=== PATIENT | male | born 1945 | race Caucasian/White ===

== ENCOUNTER 2016-10-10 13:05 | Emergency (ER) | payer OTHER ==
[~2016-10-10] VITALS: Ht 170.2 cm; Wt 81.1 kg
[~2016-10-10 13:05] MED LIST: LISI5TAB3 PO; MAGN400T5 PO; MECL1TAB42 PO; METO50TA16 PO; NRV5 PO; WARF5TAB90 PO
[2016-10-10 13:16] VITALS: TEMP 36.5; Ht 170.2 cm; Wt 81.1 kg
--- NOTE | 2016-10-10 14:04 | EMERGENCY ROOM VISIT NOTE ---
History First contact with patient: 13:19 Chief Complaint: NASAL PAIN/INJURY Stated Complaint: NOSE BLEED, BLOOD BLISTER IN MOUTH History of Present Illness The patient is a 71 year old male who presents to the Emergency Room via private vehicle with complaints of "nose bleed, blood blister in mouth". The patient states that around 2 weeks ago he began with a nosebleed out of his right nostril after bending over. He states then this past Saturday the bleeding started again from both nostrils. He states that the bleeding would do down the back of his throat. On October 07 he developed little black sores on the inside of his mouth. He states these cleared up for a brief period of time and that was scraped off similar to a scab but then developed another throughout the night. He states that there is blood oozing from these regions when he scrapes them. He states that now he has a "bunch" of them, and one developed today. He states it feels like little popcorn kernels are stuck on his skin. He is currently on Coumadin, with his last INR being 2.3 one week ago. He is on a 5 mg regimen daily except for of which he takes 7.5 mg. He is on Coumadin for atrial fibrillation and a cardiac stent placement in December 2014. He denies any recent change in this medication. He attempted to get an appointment with his family doctor today at 2 PM, Dr. King, however he was encouraged to come to the emergency department. 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 He also has a history of non-Hodgkin's lymphoma. He has had associated bleeding of the gums. He denies any hematochezia, bleeding from ear canals, fevers, chills, chest pain, shortness of breath, abdominal pain, neck pain. Review of Systems A complete 6-point Review of Systems was discussed with the patient, with pertinent positives and negatives listed in the History of Present Illness. All remaining Review of Systems questions can be considered negative unless otherwise specified. Past Medical/Surgical History Medical Problems: (1) Clostridium difficile colitis (2) Diabetes mellitus type 2 (3) Diverticular disease of colon (4) Diverticulitis (5) Dyslipidemia (6) Essential hypertension (7) History of adenomatous polyp of colon (8) History of non-Hodgkin's lymphoma (9) Paroxysmal atrial fibrillation Surgical Problems: (1) Status post cholecystectomy (2) Status post vasectomy 1992, autoimmune hemolytic anemia Family History Breast cancer SISTER Diabetes mellitus BROTHER SISTER FH: NM (myocardial infarction) FATHER BROTHER FH: heart disease FATHER BROTHER Ovarian cancer SISTER Stroke MOTHER Social History Smoking Status: Former Smoker Alcohol Use: none Marital Status: Housing Status: lives with family Occupation Status: other Current/Historical Medications Scheduled Artificial Tear Solution (Just Tears Eye Drops), 1 DROP OPB BID Aspirin (Aspirin Ec), 81 MG PO QPM Atorvastatin (Lipitor), 10 MG PO HS Glipizide (Glucotrol), 10 MG PO BID Lisinopril (Zestril), 2.5 MG PO DAILY Magnesium Oxide (Mag-Ox), 400 MG PO BID Metformin Hcl (Glucophage), 1,000 MG PO BID Metoprolol Tartrate (Lopressor) (Lopressor), 25 MG PO BID Multivitamins/Minerals (Mvi With Minerals), 1 TAB PO DAILY Omeprazole (Prilosec), 20 MG PO DAILY Warfarin Sodium (Coumadin), 5 MG PO [id number] Allergies Coded Allergies: Penicillins (Verified Allergy, Unknown, RASH, 10/10/16) Physical Exam Vital Signs Date Time Temp Pulse Resp B/P Pulse Ox O2 Delivery O2 Flow Rate FiO2 10/10/16 23:00 71 18 173/89 94 10/10/16 20:14 60 18 179/89 96 Room Air 10/10/16 17:00 63 18 196/92 95 Room Air 10/10/16 15:01 63 18 202/96 96 Room Air 10/10/16 13:16 36.5 58 18 197/90 95 Room Air Physical Exam VITAL SIGNS - Vital signs and nursing notes were reviewed. The patient is afebrile. He is hypertensive at 197/90. He is not tachycardic. He is saturating well on room air 95%. GENERAL -71-year-old male appearing his stated age who is in no acute distress. Communicates well with provider and answers questions appropriately. SKIN - there is evidence of purpura and petechiae on the skin as well as the bilateral lower extremities. There is evidence of bruising on the extremities. There is no active bleeding at this time noted. HEAD - NC/AT. EYES - PERRL with EOMI bilaterally. Sclera anicteric. Palpebral conjunctiva pink and moist with no injection noted. No hyphema. EARS - No deformities of external structures noted on gross examination bilaterally. No hemotympanum. No bleeding from the ear canals. NOSE - Midline and without cyanosis. There is evidence of dry blood in the right and left nostril. No evidence of current epistaxis at this time. MOUTH/OROPHARYNX - Without perioral cyanosis. Buccal mucosa pink and moist and without leukoplakia. Tongue midline with equal elevation of palate bilaterally. No tonsillar hypertrophy, erythema, or exudates noted. There are small black bullae on the vehicle mucosa. This is consistent with a hemorrhagic bulla. NECK - Neck with FROM. Supple to palpation. No lymphadenopathy noted. No nuchal rigidity. LUNGS - Chest wall symmetric without accessory muscle use, intercostals retractions, or central cyanosis. Normal vesicular breath sounds CTA B/L. No wheezes, rales, or rhonchi appreciated. CARDIAC - RRR with S1/S2. No murmur, rubs, or gallops appreciated. EXTREMITIES - No clubbing or peripheral cyanosis. No pretibial edema present. There are few petechiae on the bilateral upper extremities. There is diffuse petechiae noted to the lower extremities. The skin is intact. NEUROLOGIC - Cranial nerves II through XII grossly intact. Sensory intact to light touch throughout. PSYCH - A&Ox3 and cooperates fully with examiner. Pt is very pleasant and interacts well with examiner. Medical Decision & Procedures Laboratory Results 10/10/16 14:10 Red Blood Count 5.29, Mean Corpuscular Volume 86.0, Mean Corpuscular Hemoglobin 31.0, Mean Corpuscular Hemoglobin Concent 36.0, Neutrophils (%) (Auto) 65.8, Lymphocytes (%) (Auto) 18.7, Monocytes (%) (Auto) 12.3, Eosinophils (%) (Auto) 2.7, Basophils (%) (Auto) 0.4, Neutrophils # (Auto) 4.67, Lymphocytes # (Auto) 1.33, Monocytes # (Auto) 0.87, Eosinophils # (Auto) 0.19, Basophils # (Auto) 0.03 10/10/16 14:10 Test 10/10/16 14:10 White Blood Count 7.10 K/uL (4.8-10.8) Red Blood Count 5.29 M/uL (4.7-6.1) Hemoglobin 16.4 g/dL (14.0-18.0) Hematocrit 45.5 % (42-52) Mean Corpuscular Volume 86.0 fL (80-100) Mean Corpuscular Hemoglobin 31.0 pg (25-34) Mean Corpuscular Hemoglobin Concent 36.0 g/dl (32-36) Platelet Count 1 K/uL (130-400) Neutrophils (%) (Auto) 65.8 % Lymphocytes (%) (Auto) 18.7 % Monocytes (%) (Auto) 12.3 % Eosinophils (%) (Auto) 2.7 % Basophils (%) (Auto) 0.4 % Neutrophils # (Auto) 4.67 K/uL (1.4-6.5) Lymphocytes # (Auto) 1.33 K/uL (1.2-3.4) Monocytes # (Auto) 0.87 K/uL (0.11-0.59) Eosinophils # (Auto) 0.19 K/uL (0-0.5) Basophils # (Auto) 0.03 K/uL (0-0.2) RDW Standard Deviation 40.9 fL (36.4-46.3) RDW Coefficient of Variation 13.0 % (11.5-14.5) Immature Granulocyte % (Auto) 0.1 % Immature Granulocyte # (Auto) 0.01 K/uL (0.00-0.02) Platelet Estimate SIGNIFIC DECREASED Prothrombin Time 20.1 SECONDS (9.0-12.0) Prothromb Time International Ratio 1.8 (0.9-1.1) Activated Partial Thromboplast Time 32.7 SECONDS (21.0-31.0) Partial Thromboplastin Ratio 1.3 Anion Gap 8.0 mmol/L (3-11) Est Creatinine Clear Calc Drug Dose 61.0 ml/min Estimated GFR () 76.8 Estimated GFR (Non- 66.2 BUN/Creatinine Ratio 10.9 (10-20) Calcium Level 9.2 mg/dl (8.5-10.1) Total Bilirubin 1.1 mg/dl (0.2-1) Aspartate Amino Transf (AST/SGOT) 24 U/L (15-37) Alanine Aminotransferase (ALT/SGPT) 39 U/L (12-78) Alkaline Phosphatase 86 U/L (45-117) Total Protein 7.7 gm/dl (6.4-8.2) Albumin 4.2 gm/dl (3.4-5.0) Globulin 3.5 gm/dl (2.5-4.0) Albumin/Globulin Ratio 1.2 (0.9-2) Rapid Plasma Reagin NONREACTIVE (NONREACT) Medications Administered Medications (Trade) Dose Ordered Sig/Pollo Route Start Time Stop Time Status Last Admin Dose Admin Phytonadione (Mephyton Tab) 5 mg NOW STAT PO 10/10/16 18:54 10/10/16 18:57 DC 10/10/16 19:27 5 MG Prednisone (PredniSONE TAB) 80 mg STK-MED ONCE .ROUTE 10/10/16 19:24 10/10/16 19:26 DC 10/10/16 19:27 80 MG Ondansetron HCl (Zofran Inj) 4 mg NOW STAT IV 10/10/16 21:00 10/10/16 21:01 DC 10/10/16 21:09 4 MG Ondansetron HCl 4 mg 4 mg NOW STAT IV 10/10/16 21:37 10/10/16 21:38 DC 10/10/16 21:37 4 MG Sodium Chloride 1,000 ml @ 999 mls/hr Q1H1M STAT IV 10/10/16 21:37 10/10/16 22:37 DC 10/10/16 21:37 999 MLS/HR Promethazine HCl/ Sodium Chloride (Phenergan Inj/ Nss 50ml) 50.5 ml @ 204 mls/hr NOW STAT IV 10/10/16 22:06 10/10/16 22:20 DC 10/10/16 22:20 204 MLS/HR Medical Decision Patient was seen and evaluated as above. After obtaining a thorough history and physical examination IV access was obtained and a CBC, CMP, coagulation studies as well as an RPR were obtained secondary to subjective and objective examination findings. CBC revealed no leukocytosis, however the platelet count was noted to be 1. His Red blood cell count, hemoglobin and hematocrit are all stable. Patient's INR is 1.8, and the CMP did not reveal any evidence of kidney or liver failure. RPR nonreactive. 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 I spoke with our hospitalist regarding this at 3:20 PM on 10/10/2016 and it was identified that this is a patient that would benefit from transfer to a facility that may be able to better manage his platelet count. At 3:37 PM a phone call was placed to the [facility] in [place] where there was a code red. Because of this I spoke with Dr. Espinal, the hospitalist at [facility] who agreed to take the patient to the medical surgical floor. At 3:43 PM the decision was made to send the patient via ALS ground so he may seek management and treatment at [facility]. Patient was in agreement with this. The case was discussed thoroughly with my attending. The patient at this time appears nontoxic and is stable. I then was called by [facility] and notified that it may be 24 hours until the patient can be taken to a room. I was then called back and notified that it could be greater than this time therefore I discussed alternative options. I spoke with [facility] regarding the patient's care and at 6:[address] Grant of the [facility] who would be the accepting physician. He indicated that it may be a few hours until a room is available after a patient is discharged. He indicated that depending upon the amount of wait time I should start steroids, specifically prednisone 1 mg/kg as well as consider reversing the patient's Coumadin as the risk of the patient bleeding outweighs the benefit of anticoagulation. I discussed this with my attending, and because the first attending left after the end of his shift and a new one began I then acquired a new attending. I discussed the case thoroughly with him. He also personally evaluated the patient. The patient was given 80 mg by mouth of prednisone as well as 5 mg of vitamin K. The patient was reassessed multiple times throughout his stay and the patient at this time is pending transfer to [facility]. I believe that although there are risks associated with transfer, that the benefit of the patient receiving treatment from that facility outweighs the risk. Prior to the patient reporting the facility at 9 PM, the patient developed emesis that was bile like in nature but not gross blood. Patient was given Zofran 4 mg IV, and then another 4 mg IV without cessation of his emesis. He was then given 12.5 mg of Phenergan with good relief. He was then stable, and was transported to [facility]. The patient was reevaluated multiple times throughout his stay and noted to be feeling well, he did ask for solid food however I indicated that due to the hemorrhagic bullae near the soft palate and pharynx that at this time liquids would be best. He is a diabetic therefore care was taken to ensure that sugar was maintained via his liquid intake but at this time I do not feel a solid foods would be beneficial. In the evaluation and treatment of this patient following differential diagnoses were entertained: ITP, TTP, acute hemorrhage, shingles, among others. Impression Primary Impression: Thrombocytopenia Departure Information Dispostion Transfer Acute Care Facility Condition FAIR Referrals Noble King D.O. (PCP) Patient Instructions A Signature Page, My [facility]
--- NOTE | 2016-10-10 14:30 | EMERGENCY ROOM VISIT NOTE ---
ED Visit Note First contact with patient: 13:19 This Patient was discussed with the physician elementary assistant teacher, Pipo Barron PA-C. The pertinent historical and physical exam findings were confirmed. I agree with the studies ordered and with the interpretations of these studies. I agree with the disposition and care plan.
[2016-10-10 14:35] LABS: INR 1.8 (0.9-1.1); PARTIAL THROMBOPLASTIN RATIO 1.3; PROTHROMBIN TIME (PATIENT) 20.1 SECONDS (9.0-12.0)
[2016-10-10 14:36] LABS: HEMATOCRIT 45.5 % (42-52); RED BLOOD COUNT 5.29 M/uL (4.7-6.1)
[2016-10-10 14:44] LABS: BUN/CREATININE RATIO 10.9 (10-20); CALCIUM 9.2 mg/dl (8.5-10.1); CREATININE 1.1 mg/dl (0.60-1.40)
[2016-10-10 14:46] LABS: ALB/GLOB RATIO 1.2 (0.9-2)
[2016-10-10 14:49] LABS: BASO % 0.4 %; BASO ABS # 0.03 K/uL (0-0.2); COMPLETE YES; EOS % 2.7 %; IG% 0.1 %; LYMPH % 18.7 %; LYMPH ABS # 1.33 K/uL (1.2-3.4); MONO % 12.3 %; NEUT % 65.8 %; PLATELET COUNT 1 K/uL (130-400); PLT ESTIMATE SIGNIFIC DECREASED
[2016-10-10] MEDS ORDERED: PHYTONADIONE 5 MG TAB PO STA (18:54)
[2016-10-10] MEDS ORDERED: ONDANSETRON INJ 2 MG/ML 2 ML VIAL IV STA ×2 (21:00→21:37)
[2016-10-10] MEDS ORDERED: SODIUM CHLORIDE 0.9% 1000ML 1,000 ML IV STA (21:37)
[2016-10-10] MEDS ORDERED: PROMETHAZINE HCL INJ 12.5 MG in SODIUM CHLORIDE 0.9% 50ML 50 ML IV STA (22:06)
[2016-10-10 23:00] VITALS: BP 173/89; PULSE 71; O2SAT 94
--- NOTE | 2016-10-11 00:59 | EMERGENCY ROOM VISIT NOTE ---
ED Visit Note This patient was seen by Pipo Barron and Dr. Perez. The plan had been to transfer the patient to [facility]. Pipo came and got me and further discussed the case as [facility] could not accept the patient because they had no beds and are not accepting patients. We then chose to transfer the patient to [facility]. Our hospitalist was not comfortable keeping the patient. I went and examined the patient. He seems comfortable. He does have some hemorrhagic bulla in his mouth without active bleeding. He is in no respiratory distress. He has no significant headache or neurologic symptoms. He has no airway compromise. We did talk to the electric blasting cap assembler at [facility] and have given the patient prednisone 1 mg/kg by mouth. Also given the fact that he is on Coumadin we have given vitamin K 5 mg by mouth. He is on this primarily for A. fib and does not have an artificial heart valve. His INR was not significantly elevated and was in the mid 1 range. He's had no significant bleeding while he was here. [facility] has accepted the patient and he did have some nausea was given Zofran IV twice as well as IV fluids. He was sent by ALS ambulance to [facility] for further treatment and evaluation.
[2017-01-18] MEDS ORDERED: LISI-789 PO (14:55)
[2017-01-18] MEDS ORDERED: AMIO200T4 PO (14:56)
[2017-01-28] MEDS ORDERED: PRED1SUS3 OPL (07:30)
[2017-07-04] MEDS ORDERED: GLIP10TA9 PO (11:32)
[2017-07-04] MEDS ORDERED: MULT-513 PO (11:46)
[2017-07-04] MEDS ORDERED: OMEP20CA9 PO (11:46)
[2017-07-04] MEDS ORDERED: ASPI81TA28 PO (11:46)
[2017-07-04] MEDS ORDERED: ARTISOL OPB (11:46)
[2017-07-04] MEDS ORDERED: METF-384 PO (11:46)
[2017-07-04] MEDS ORDERED: ATOR10TA82 PO (13:13)
[2017-07-04] MEDS ORDERED: WARF5TAB90 PO (14:55)
[2017-07-24] MEDS ORDERED: FOLI1TAB8 PO (10:16)
[2017-07-29] MEDS ORDERED: LPR25 PO (12:41)
[2017-07-29] MEDS ORDERED: DIPH2CRE16 EXT (12:41)
[2017-09-25] MEDS ORDERED: NRV5 PO (12:59)
[2017-09-25] MEDS ORDERED: PLV75 PO (12:59)
== END 2016-10-10 23:02 | disposition short-term general hospital (02) ==
LOC: C.EDB 13:07
DX: D69.6 Thrombocytopenia, unspecified (principal); R11.2 Nausea with vomiting, unspecified; R23.8 Other skin changes; I48.0 Paroxysmal atrial fibrillation; E11.9 Type 2 diabetes mellitus without complications; I10 Essential (primary) hypertension; E78.5 Hyperlipidemia, unspecified; Z85.72 Personal history of non-Hodgkin lymphomas; Z79.01 Long term (current) use of anticoagulants; Z79.899 Other long term (current) drug therapy; Z79.4 Long term (current) use of insulin; Z79.82 Long term (current) use of aspirin; Z87.891 Personal history of nicotine dependence; Z83.3 Family history of diabetes mellitus; Z82.49 Family history of ischemic heart disease and other diseases of the circulatory system; Z80.3 Family history of malignant neoplasm of breast; Z80.41 Family history of malignant neoplasm of ovary

== ENCOUNTER → 2017-01-25 | Outpatient (CLI) | payer OTHER ==
[~2017-01-25] MED LIST changes: +ALBUAER INH; +AMIO200T4 PO; +ARTISOL OPB; +ASPI81TA28 PO; +ASTN; +ATOR10TA82 PO; +AUG0.05O4 TOP; +CYAN10005 PO; +DIPH2CRE16 EXT; +DOCU100C31 PO; +FLNIN/ NAE; +FOLI1TAB7 PO; +GADAVIST IV PRN; +GLIP10TA9 PO; +HYDR25CA PO; +HYDR50CA2 PO; +LISI-789 PO; -LISI5TAB3 PO; +LPR25 PO; +LPT/40 PO; -MECL1TAB42 PO; +METF-384 PO; +MULT-513 PO; +NRV/5 PO; -NRV5 PO; +OMEP20CA9 PO; +PRED1SUS3 OPL; +PRED20TA PO; +TACR0.1O6 TOP
--- NOTE | 2017-01-25 08:38 | DIAGNOSTIC IMAGING REPORT ---
MRI OF THE BRAIN WITHOUT AND WITH IV CONTRAST CLINICAL HISTORY: BALANCE PROBLEM,GAIT DISTURBANCE,DIZZINESS FOLLICULAR LYMPHOMA COMPARISON STUDY: No previous studies for comparison. TECHNIQUE: MRI of the brain was performed from the vertex to the skull base utilizing various T1 and T2 weighted sequences. Following the IV administration of 7.5 mL of Gadavist contrast, additional enhanced images were obtained. FINDINGS: Sagittal T1, axial diffusion, proton density and T2 weighted axial, coronal FLAIR, and pre and post axial T1-weighted images were acquired. These were supplemented with post gadolinium coronal T1 weighted images. No intra or extra-axial mass lesions are visualized. Axial diffusion-weighted images reveal no evidence of acute or subacute infarction. There is no evidence of ventricular dilatation. Proton density T2-weighted and FLAIR images reveal scattered foci of increased T2 signal within the white matter, likely on a small vessel basis. There are no abnormal flow voids. There is no evidence of pathologic enhancement. There are minor inflammatory changes within the paranasal sinuses. IMPRESSION: 1. No acute intracranial findings 2. No evidence of intracranial mass 3. No evidence of acute or subacute infarction 4. Foci of increased T2 signal within the white matter likely on a small vessel basis Electronically signed by: Blair Vanessa M.D. 01/25/2017 8:35 AM Dictated Date/Time: 01/25/2017 8:32 AM
== END | disposition home or self-care (01) ==
LOC: C.MRI 07:41
PROVIDERS: ATTEND Nurse Practitioner
DX: R26.89 Other abnormalities of gait and mobility (principal); R26.9 Unspecified abnormalities of gait and mobility; R42 Dizziness and giddiness

== ENCOUNTER → 2017-01-28 | Day surgery (SDC) | payer OTHER ==
[2017-01-18 14:57] VITALS: Ht 171.5 cm; Wt 77.3 kg
[~2017-01-28] VITALS: Ht 171.5 cm; Wt 77.3 kg
[~2017-01-28] MED LIST changes: +500ML BSS 0.3ML EPI 1:1000PF IRRIG ONE; +ACETAMINOPHEN 325 MG TAB PO PRN; +AMVISC PLUS 0.8ML SYRINGE INT OCU ONE; +ATROPINE SULFATE 0.1 MG/ML 5ML SYR IV PRN; +BRIMONIDINE TART 0.2% OP SOLN PER DROP CHARGE ONE; +BSS FLUSH ONE; +ENDOCOAT 0.85ML SYRINGE INT OCU ONE; +EpHEDrine SULFATE INJ 50 MG/ML AMP IV PRN; +EpINEphrine INJ 1MG/ML AMP 1 MG/ML AMP ONE; +FENTANYL CITRATE INJ 50 MCG/1 ML 2 ML VIAL IV PRN; -GADAVIST IV PRN; +LACTATED RINGER'S 1000ML 500 ML IV SCH; +LIDOCAINE 4% OP SOLN DROP CHARGE ONE; +LIDOCAINE 4% OP SOLN DROP CHARGE OPL SCH; +LIDOCAINE HCL 1% MPF 2 ML VIAL ONE; +MIDAZOLAM HCL 1 MG/ML 2ML VIAL ONE; +MOXIFLOXACIN OPH SOLN PER DROP CHARGE ONE; +ONDANSETRON INJ 2 MG/ML 2 ML VIAL IV PRN; +POVIDONE-IODINE OP SOLN 30 ML BTL ONE; +PROPARACAINE 0.5% OP SOLN PER DROP CHARGE OPL SCH; +TOBRAMYCIN/DEXAMETHASONE OPH OINT PER APPLN CHARGE ONE
[2017-01-28] MEDS: PHENYLEPHRINE HCL 2.5% OP SOLN PER DROP CHARGE OPL SCH ×2 (07:23→07:28)
[2017-01-28] MEDS: TROPICAMIDE 1% OP SOLN PER DROP CHARGE OPL SCH ×2 (07:24→07:29)
[2017-01-28] MEDS: CYCLOPENTOLATE HCL 1% OP SOLN PER DROP CHARGE OPL SCH ×2 (07:25→07:30)
[2017-01-28] MEDS: KETOROLAC 0.5% OP SOLN PER DROP CHARGE OPL SCH ×2 (07:26→07:31)
[2017-01-28] MEDS: MOXIFLOXACIN OPH SOLN PER DROP CHARGE OPL SCH ×2 (07:27→07:37)
--- NOTE | 2017-01-28 07:29 | History & Physical Bridge - SC ---
H&P Re-Evaluation Bridge Note: I have examined the patient, reviewed the History & Physical and in the interval since the performance of the History & Physical I have noted the following changes of clinical significance: No changes noted
--- NOTE | 2017-01-28 08:27 | [facility] Post Operative Brief Note ---
Immediate Operative Summary Operative Date Jan 28, 2017. Pre-Operative Diagnosis Cataract Left Eye Post-Operative Diagnosis Same Procedure(s) Performed Left Cataract Phacoemulsification With Intraocular Lens Implant Surgeon Dr. Partida Home Therapy Teacher Surgeon(s) None Estimated Blood Loss 0 Findings cataract left eye Specimens None Complication(s) None Disposition Recovery Room / PACU
--- NOTE | 2017-01-28 08:27 | Discharge Instructions-SurgCtr ---
Discharge Instructions Date of Service Jan 28, 2017. Visit Reason for Visit: Left Cataract Discharge Discharge Diagnosis / Problem: cataract left eye Discharge Goals Goal(s): Improve function Medications Stopped Medications Name(s): metformin, last dose 01/24/17 Activity Recommendations Activity Limitations: per Instructions/Follow-up section Lifting Limitations: no more than 5 pounds Anesthesia . Post Anesthesia Instructions: If you have had General Anesthesia or IV Sedation: * Do not drive today. * Resume driving when surgeon permits. * Do not make important decisions or sign legal documents today. * Call surgeon for: 1. Temperature elevations greater than 101 degrees F. 2. Uncontrollable pain. 3. Excessive bleeding. 4. Persistent nausea and vomiting. 5. Medication intolerance (nausea, vomiting or rash). * For nausea and vomiting use only clear liquids such as: tea, soda, bouillon until nausea subsides, then gradually increase diet as tolerated. * If you have any concerns or questions, call your surgeon's office. If physician is unavailable and it is an emergency, call 911 or go to the nearest emergency room. . Instructions / Follow-Up Instructions / Follow-Up ACTIVITY RECOMMENDATIONS: * Light activities * You may walk outside, read, watch television. * Mild irritation and blurred vision are common for the first few days, redness around the white part of the eye is common. MEDICATIONS: Resume previous medications unless instructed otherwise by your surgeon. Eye drops (today and tomorrow): Cipro - one drop in operative eye every 2 hours while awake Prednisolone 1% - one drop in operative eye every 2 hours while awake Bromfenac - one drop in operative eye once daily SPECIAL CARE INSTRUCTIONS: * If any problems or concerns, please call Dr. Partida's office at . * Keep plastic shield taped over eye to sleep at night. * Keep plastic shield taped over eye except to administer eye drops. * Keep plastic shield on until office visit the following day. FOLLOW UP VISIT: Follow-up with Dr. Partida in the [place] office as scheduled. If not already scheduled, please call the office at . Diet Recommendations Home Diet: resume previous diet Procedures Procedures Performed: Left Cataract Phacoemulsification With Intraocular Lens Implant Pending Studies Studies pending at discharge: no Medical Emergencies . Who to Call and When: Medical Emergencies: If at any time you feel your situation is an emergency, please call 911 immediately. . Non-Emergent Contact Non-Emergency issues call your: Health Program Manager . . "Provider Documentation" section prepared by Meño Partida. .
[2017-01-28 08:30] VITALS: TEMP 36.6
--- NOTE | 2017-01-28 08:52 | Anesthesia Progress Nt - [facility] ---
Anesthesia Post Op Note Date & Time Jan 28, 2017 at 08:52 Vital Signs Pain Intensity: 0 Vital Signs Past 12 Hours Date Time Temp Pulse Resp B/P Pulse Ox O2 Delivery O2 Flow Rate FiO2 01/28/17 08:30 36.6 49 16 162/106 95 Room Air 01/28/17 07:17 36.4 47 20 170/92 98 Room Air Notes Mental Status: alert / awake / arousable, participated in evaluation Pt Amnestic to Procedure: Yes Nausea / Vomiting: adequately controlled Pain: adequately controlled Airway Patency, RR, SpO2: stable & adequate BP & HR: stable & adequate Hydration State: stable & adequate Anesthetic Complications: no major complications apparent
[2017-01-28 09:10] VITALS: BP 151/81; PULSE 49; O2SAT 97
--- NOTE | 2017-01-28 09:32 | OPERATIVE REPORT ---
DATE OF OPERATION: 01/28/2017 PREOPERATIVE DIAGNOSIS: Cataract, left eye. POSTOPERATIVE DIAGNOSIS: Cataract, left eye. PROCEDURE: Phacoemulsification cataract extraction with intraocular lens placement, left eye. SURGEON: Dr. Partida. COMPLICATIONS: None. ESTIMATED BLOOD LOSS: None. ANESTHESIA: Topical with sedation. OPERATION AND FINDINGS: After informed consent was obtained in the holding area the patient was wheeled back to the Operating Room where cardiac monitoring leads and oxygen by nasal cannula was administered by Anesthesia. Gentle IV sedation was given, and the patient's left eye was prepped and draped in usual sterile fashion. A wire lid speculum was placed into the left eye and the operating microscope was swung into position. Using 0.12 forceps and a Supersharp blade a paracentesis port was made 3 o'clock hours away from the 3 o'clock position of patient's left eye. 1% non-preserved Lidocaine was then injected into the anterior chamber for anesthesia. A 2.2 mm keratotome blade was then used to make a shelved clear corneal incision at the 3 o'clock position of his left eye. Amvisc was injected into the anterior chamber and a cystotome and Utrata forceps were used to perform a curvilinear capsulorrhexis. BSS on a hydrodissection cannula was used to hydrodissect the lens nucleus away from the capsular bag. The phacoemulsification handpiece was then used in a stop and chop fashion to remove the lens nucleus. The irrigation and aspiration handpiece was then used to remove the residual cortical material. Amvisc was injected into the capsular bag and anterior chamber and a Bausch \T\ Lomb MX60, 21.0 Diopter intraocular lens was injected into the capsular bag. Irrigation and aspiration handpiece was used to remove the residual viscoelastic material. The wounds were hydrated and noted to be watertight. The wire lid speculum was removed from the eye. Vigamox, Brimonidine, and TobraDex ointment were placed on the eye and it was shielded. It should be noted that EndoCoat was used during the case to protect the cornea endothelium. DISPOSITION: The patient tolerated the procedure well and was wheeled to the post anesthesia care unit in stable condition. I attest to the content of the Intraoperative Record and any orders documented therein. Any exceptions are noted below. I attest to the content of the Intraoperative Record and any orders documented therein. Any exceptio ns are noted below.
== END | disposition home or self-care (01) ==
LOC: X.SURG 06:57
PROVIDERS: ATTEND Ophthalmology
DX: H26.9 Unspecified cataract (principal); I48.91 Unspecified atrial fibrillation; I10 Essential (primary) hypertension; E78.00 Pure hypercholesterolemia, unspecified; E11.9 Type 2 diabetes mellitus without complications; C85.90 Non-Hodgkin lymphoma, unspecified, unspecified site; Z87.891 Personal history of nicotine dependence; Z79.82 Long term (current) use of aspirin; Z79.899 Other long term (current) drug therapy; Z79.01 Long term (current) use of anticoagulants; Z79.84 Long term (current) use of oral hypoglycemic drugs

== ENCOUNTER → 2017-02-13 | Outpatient (CLI) | payer OTHER ==
[~2017-02-13] MED LIST changes: -500ML BSS 0.3ML EPI 1:1000PF IRRIG ONE; -ACETAMINOPHEN 325 MG TAB PO PRN; -AMVISC PLUS 0.8ML SYRINGE INT OCU ONE; -ATROPINE SULFATE 0.1 MG/ML 5ML SYR IV PRN; -BRIMONIDINE TART 0.2% OP SOLN PER DROP CHARGE ONE; -BSS FLUSH ONE; -ENDOCOAT 0.85ML SYRINGE INT OCU ONE; -EpHEDrine SULFATE INJ 50 MG/ML AMP IV PRN; -EpINEphrine INJ 1MG/ML AMP 1 MG/ML AMP ONE; -FENTANYL CITRATE INJ 50 MCG/1 ML 2 ML VIAL IV PRN; -LACTATED RINGER'S 1000ML 500 ML IV SCH; -LIDOCAINE 4% OP SOLN DROP CHARGE ONE; -LIDOCAINE 4% OP SOLN DROP CHARGE OPL SCH; -LIDOCAINE HCL 1% MPF 2 ML VIAL ONE; -MIDAZOLAM HCL 1 MG/ML 2ML VIAL ONE; -MOXIFLOXACIN OPH SOLN PER DROP CHARGE ONE; -ONDANSETRON INJ 2 MG/ML 2 ML VIAL IV PRN; -POVIDONE-IODINE OP SOLN 30 ML BTL ONE; -PROPARACAINE 0.5% OP SOLN PER DROP CHARGE OPL SCH; -TOBRAMYCIN/DEXAMETHASONE OPH OINT PER APPLN CHARGE ONE
[2017-02-14 15:48] LABS: ALBUMIN 3.8 G/DL (3.8-4.8); GAMMA GLOBULIN 0.6 G/DL (0.8-1.7); TOTAL PROTEIN 6.3 G/DL (6.2-8.3)
--- NOTE | 2017-02-19 13:24 | CODING QUERY MEDICAL NECESSITY ---
CQSUPPORTING DIAGNOSIS NEEDED A supporting diagnosis is required for the test/procedure performed on this patient in order for us to be reimbursed by the patient's insurance. Please provide a supporting diagnosis for the following test/procedure listed below next to the test name along with your signature. *If there is no additional diagnosis for this patient that would support the following test/procedure please document that below next to the test/procedure. Test(s)/Procedure(s) that require a supporting diagnosis: DOS 02/13/17 VITAMIN B12 FOLIC ACID Provider Signature: Date: Thank you Terra Vazquez Health Information Management Once completed, please kindly fax back to [phone] For questions please call [phone]
== END | disposition home or self-care (01) ==
LOC: C.LAB 11:38
PROVIDERS: ATTEND Internal Medicine
DX: R29.898 Other symptoms and signs involving the musculoskeletal system (principal)

== ENCOUNTER → 2017-03-13 | Outpatient (CLI) | payer OTHER ==
[~2017-03-13] MED LIST changes: -PRED1SUS3 OPL
--- NOTE | 2017-03-13 12:19 | DIAGNOSTIC IMAGING REPORT ---
CHEST 2 VIEWS ROUTINE CLINICAL HISTORY: COUGH R05 dyspnea COMPARISON STUDY: 02/17/2015 FINDINGS: Mild stable cardiomegaly. Slight chronic interstitial change throughout both hemithoraces considered unaltered from the prior exam. No focal infiltrate. Stable postoperative changes in the left proximal humerus. IMPRESSION: Chronic and postoperative change. No acute process. Electronically signed by: Wood Merino M.D. 03/13/2017 12:18 PM Dictated Date/Time: 03/13/2017 12:17 PM
== END | disposition home or self-care (01) ==
LOC: C.RAD 11:16
PROVIDERS: ATTEND Family Medicine
DX: R05 Cough (principal)

== ENCOUNTER → 2017-03-25 | Day surgery (SDC) | payer OTHER ==
[2017-03-07 08:44] VITALS: Ht 171.5 cm; Wt 77.3 kg
[~2017-03-25] VITALS: Ht 171.5 cm; Wt 77.3 kg
[~2017-03-25] MED LIST changes: +500ML BSS 0.3ML EPI 1:1000PF IRRIG ONE; +ACETAMINOPHEN 325 MG TAB PO PRN; +AMVISC PLUS 0.8ML SYRINGE INT OCU ONE; +ATROPINE SULFATE 0.1 MG/ML 5ML SYR IV PRN; +BRIMONIDINE TART 0.2% OP SOLN PER DROP CHARGE ONE; +BSS FLUSH ONE; +ENDOCOAT 0.85ML SYRINGE INT OCU ONE; +EpHEDrine SULFATE INJ 50 MG/ML AMP IV PRN; +EpINEphrine INJ 1MG/ML AMP 1 MG/ML AMP ONE; +LACTATED RINGER'S 1000ML 500 ML IV SCH; +LIDOCAINE 4% OP SOLN DROP CHARGE ONE; +LIDOCAINE 4% OP SOLN DROP CHARGE OPR SCH; +LIDOCAINE HCL 1% MPF 2 ML VIAL ONE; +MIDAZOLAM HCL 1 MG/ML 2ML VIAL ONE; +MOXIFLOXACIN OPH SOLN PER DROP CHARGE ONE; +ONDANSETRON INJ 2 MG/ML 2 ML VIAL IV PRN; +POVIDONE-IODINE OP SOLN 30 ML BTL ONE; +PROPARACAINE 0.5% OP SOLN PER DROP CHARGE OPR SCH; +TOBRAMYCIN/DEXAMETHASONE OPH OINT PER APPLN CHARGE ONE
[2017-03-25] MEDS: PHENYLEPHRINE HCL 2.5% OP SOLN PER DROP CHARGE OPR SCH ×2 (06:41→06:47)
[2017-03-25] MEDS: TROPICAMIDE 1% OP SOLN PER DROP CHARGE OPR SCH ×2 (06:42→06:47)
[2017-03-25] MEDS: CYCLOPENTOLATE HCL 1% OP SOLN PER DROP CHARGE OPR SCH ×2 (06:43→06:48)
[2017-03-25] MEDS: KETOROLAC 0.5% OP SOLN PER DROP CHARGE OPR SCH ×2 (06:45→06:50)
[2017-03-25] MEDS: MOXIFLOXACIN OPH SOLN PER DROP CHARGE OPR SCH ×2 (06:46→06:55)
[2017-03-25 07:29] VITALS: TEMP 36.1
--- NOTE | 2017-03-25 07:29 | Discharge Instructions-[facility] ---
Discharge Instructions Date of Service Mar 25, 2017. Visit Reason for Visit: Cataract Right Eye Discharge Discharge Diagnosis / Problem: cataract right eye Discharge Goals Goal(s): Improve function Medications Stopped Medications Name(s): metformin Activity Recommendations Activity Limitations: per Instructions/Follow-up section Lifting Limitations: no more than 5 pounds Anesthesia . Post Anesthesia Instructions: If you have had General Anesthesia or IV Sedation: * Do not drive today. * Resume driving when surgeon permits. * Do not make important decisions or sign legal documents today. * Call surgeon for: 1. Temperature elevations greater than 101 degrees F. 2. Uncontrollable pain. 3. Excessive bleeding. 4. Persistent nausea and vomiting. 5. Medication intolerance (nausea, vomiting or rash). * For nausea and vomiting use only clear liquids such as: tea, soda, bouillon until nausea subsides, then gradually increase diet as tolerated. * If you have any concerns or questions, call your surgeon's office. If physician is unavailable and it is an emergency, call 911 or go to the nearest emergency room. . Instructions / Follow-Up Instructions / Follow-Up ACTIVITY RECOMMENDATIONS: * Light activities * You may walk outside, read, watch television. * Mild irritation and blurred vision are common for the first few days, redness around the white part of the eye is common. MEDICATIONS: Resume previous medications unless instructed otherwise by your surgeon. Eye drops (today and tomorrow): Polytrim - one drop in operative eye every 2 hours while awake Prednisolone 1% - one drop in operative eye every 2 hours while awake Bromfenac - one drop in operative eye once daily SPECIAL CARE INSTRUCTIONS: * If any problems or concerns, please call Dr. Partida's office at . * Keep plastic shield taped over eye to sleep at night. * Keep plastic shield taped over eye except to administer eye drops. * Keep plastic shield on until office visit the following day. FOLLOW UP VISIT: Follow-up with Dr. Partida in the [place] office as scheduled. If not already scheduled, please call the office at . Diet Recommendations Home Diet: resume previous diet Procedures Procedures Performed: Right Cataract Phacoemulsification With Intraocular Lens Implant Pending Studies Studies pending at discharge: no Medical Emergencies . Who to Call and When: Medical Emergencies: If at any time you feel your situation is an emergency, please call 911 immediately. . Non-Emergent Contact Non-Emergency issues call your: Minute Clerk . . "Provider Documentation" section prepared by Meño Partida. .
--- NOTE | 2017-03-25 07:29 | [facility] Post Operative Brief Note ---
Immediate Operative Summary Operative Date Mar 25, 2017. Pre-Operative Diagnosis Cataract Right Eye Post-Operative Diagnosis Same Procedure(s) Performed Right Cataract Phacoemulsification With Intraocular Lens Implant Surgeon Dr. Partida Lighter Surgeon(s) None Estimated Blood Loss 0 Findings cataract right eye Specimens 0 Complication(s) None Disposition Recovery Room / PACU
--- NOTE | 2017-03-25 07:41 | Anesthesia Progress Nt - [facility] ---
Anesthesia Post Op Note Date & Time Mar 25, 2017 at 07:41 Vital Signs Pain Intensity: 0 Vital Signs Past 12 Hours Date Time Temp Pulse Resp B/P (MAP) Pulse Ox O2 Delivery O2 Flow Rate FiO2 03/25/17 07:29 36.1 56 16 165/90 (115) 97 Room Air 03/25/17 06:40 36.6 63 18 163/90 (114) 97 Room Air Notes Mental Status: alert / awake / arousable, participated in evaluation Pt Amnestic to Procedure: Yes Nausea / Vomiting: adequately controlled Pain: adequately controlled Airway Patency, RR, SpO2: stable & adequate BP & HR: stable & adequate Hydration State: stable & adequate Anesthetic Complications: no major complications apparent
[2017-03-25 07:50] VITALS: BP 142/87; PULSE 53; O2SAT 96
--- NOTE | 2017-03-25 10:36 | OPERATIVE REPORT ---
DATE OF OPERATION: 03/25/2017 PREOPERATIVE DIAGNOSIS: Cataract, right eye. POSTOPERATIVE DIAGNOSIS: Cataract, right eye. PROCEDURE: Phacoemulsification cataract extraction with intraocular lens placement, right eye. SURGEON: Dr. Partida. COMPLICATIONS: None. ESTIMATED BLOOD LOSS: None. ANESTHESIA: Topical with sedation. DESCRIPTION OF PROCEDURE: After informed consent was obtained in the holding area the patient was wheeled back to the Operating Room where cardiac monitoring leads and oxygen by nasal cannula was administered by Anesthesia. Gentle IV sedation was given, and the patient's right eye was prepped and draped in usual sterile fashion. A wire lid speculum was placed into the right eye and the operating microscope was swung into position. Using 0.12 forceps and a Supersharp blade a paracentesis port was made 3 o'clock hours away from the 9 o'clock position of patient's right eye. 1% non-preserved Lidocaine was then injected into the anterior chamber for anesthesia. A 2.2 mm keratotome blade was then used to make a shelved clear corneal incision at the 9 o'clock position of his right eye. Amvisc was injected into the anterior chamber and a cystotome and Utrata forceps were used to perform a curvilinear capsulorrhexis. BSS on a hydrodissection cannula was used to hydrodissect the lens nucleus away from the capsular bag. The phacoemulsification handpiece was then used in a stop and chop fashion to remove the lens nucleus. The irrigation and aspiration handpiece was then used to remove the residual cortical material. Amvisc was injected into the capsular bag and anterior chamber and a [employer]ch [employer] Lomb MX60 21.0 Diopter intraocular lens was injected into the capsular bag. Irrigation and aspiration handpiece was used to remove the residual viscoelastic material. The wounds were hydrated and noted to be watertight. The wire lid speculum was removed from the eye. Vigamox, Brimonidine, and TobraDex ointment were placed on the eye and it was shielded. It should be noted that endoscope was used during the case to protect the corneal endothelium. DISPOSITION: The patient tolerated the procedure well and was wheeled to the post anesthesia care unit in stable condition. I attest to the content of the Intraoperative Record and any orders documented therein. Any exceptions are noted below. I attest to the content of the Intraoperative Record and any orders documented therein. Any exception s are noted below.
== END | disposition home or self-care (01) ==
LOC: X.SURG 06:24
PROVIDERS: ATTEND Ophthalmology
DX: H25.11 Age-related nuclear cataract, right eye (principal); I10 Essential (primary) hypertension; E11.9 Type 2 diabetes mellitus without complications; E78.00 Pure hypercholesterolemia, unspecified; I48.91 Unspecified atrial fibrillation; C85.90 Non-Hodgkin lymphoma, unspecified, unspecified site; Z95.5 Presence of coronary angioplasty implant and graft; Z87.891 Personal history of nicotine dependence; Z79.82 Long term (current) use of aspirin; Z79.01 Long term (current) use of anticoagulants; Z79.899 Other long term (current) drug therapy

== ENCOUNTER → 2017-06-04 | Day surgery (SDC) | payer OTHER ==
[~2017-06-04] VITALS: Ht 170.2 cm; Wt 75.0 kg
[~2017-06-04] MED LIST changes: -500ML BSS 0.3ML EPI 1:1000PF IRRIG ONE; -ACETAMINOPHEN 325 MG TAB PO PRN; -ALBUAER INH; -AMVISC PLUS 0.8ML SYRINGE INT OCU ONE; -ASTN; -ATOR10TA82 PO; +ATOR10TA88 PO; -ATROPINE SULFATE 0.1 MG/ML 5ML SYR IV PRN; -BRIMONIDINE TART 0.2% OP SOLN PER DROP CHARGE ONE; -BSS FLUSH ONE; -CYAN10005 PO; -DIPH2CRE16 EXT; -DOCU100C31 PO; -ENDOCOAT 0.85ML SYRINGE INT OCU ONE; -EpHEDrine SULFATE INJ 50 MG/ML AMP IV PRN; -EpINEphrine INJ 1MG/ML AMP 1 MG/ML AMP ONE; -FOLI1TAB7 PO; -LACTATED RINGER'S 1000ML 500 ML IV SCH; -LIDOCAINE 4% OP SOLN DROP CHARGE ONE; -LIDOCAINE 4% OP SOLN DROP CHARGE OPR SCH; -LIDOCAINE HCL 1% MPF 2 ML VIAL ONE; -LPR25 PO; -LPT/40 PO; -MAGN400T5 PO; -METO50TA16 PO; -MIDAZOLAM HCL 1 MG/ML 2ML VIAL ONE; -MOXIFLOXACIN OPH SOLN PER DROP CHARGE ONE; -ONDANSETRON INJ 2 MG/ML 2 ML VIAL IV PRN; -POVIDONE-IODINE OP SOLN 30 ML BTL ONE; -PROPARACAINE 0.5% OP SOLN PER DROP CHARGE OPR SCH; +PROPOFOL IV EMULSION 10 MG/ML 20 ML VIAL IV ONE; +SODIUM CHLORIDE 0.9% 500ML 500 ML IV ONE; -TOBRAMYCIN/DEXAMETHASONE OPH OINT PER APPLN CHARGE ONE
[2017-06-04 08:17] VITALS: Ht 170.2 cm; Wt 75.0 kg
--- NOTE | 2017-06-04 08:44 | Endo History and Physical ---
History & Physical Date of Service: Jun 04, 2017. Chief Complaint: pos cologuard Referring Physician: Dr. King History of Present Illness positive stool cologuard Past Surgical History Hx Cardiac Surgery: No Hx Internal Defibrillator: No Hx Pacemaker: No Hx Abdominal Surgery: Yes Hx of Implantable Prosthesis: No Hx Post-Op Nausea and Vomiting: No Hx Cancer Surgery: No Hx Thoracic Surgery: No Hx Orthopedic: Yes (Left shoulder Fx) Hx Urinary Tract Surgery: No Family History None Social History Smoking Status: Former Smoker Hx Substance Use: No Hx Alcohol Use: No Allergies Coded Allergies: Gold (Verified Allergy, Unknown, hives, 03/25/17) Losartan (Verified Allergy, Unknown, hypotension, 03/25/17) Penicillins (Verified Allergy, Unknown, RASH, 03/25/17) Triamcinolone (Verified Allergy, Unknown, "pustules/redness", 03/25/17) Current Medications Reported Home Medications Medications Dose Route/Sig Max Daily Dose Days Date Category Cordarone (Amiodarone Hcl) 200 Mg Tab 200 Mg PO BID 01/18/17 Reported Coumadin (Warfarin Sodium) 5 Mg Tab 5 Mg PO QPM 01/18/17 Reported Zestril (Lisinopril) 2.5 Mg Tab 1 Tab PO QPM 01/18/17 Reported Glucotrol (Glipizide) 10 Mg Tab 10 Mg PO BID 02/17/15 Reported Mvi With Minerals (Multivitamins/Minerals) Tab 1 Tab PO QAM 12/07/13 Reported Aspirin Ec (Aspirin) 81 Mg Tab 81 Mg PO QPM 12/07/13 Reported Prilosec (Omeprazole) 20 Mg Cap 20 Mg PO QAM 12/07/13 Reported Just Tears Eye Drops (Artificial Tear Solution) 1 Babs Babs 1 Drop OPB BID PRN 12/07/13 Reported Glucophage (Metformin Hcl) 1,000 Mg Tab 1,000 Mg PO BID 12/07/13 Reported Lipitor (Atorvastatin Calcium) 10 Mg Tab 10 Mg PO HS 07/25/11 Reported Vital Signs Weight (Kilograms): 75 Height (Feet): 5 Height (Inches): 7 Date Time Temp Pulse Resp B/P (MAP) Pulse Ox O2 Delivery O2 Flow Rate FiO2 06/04/17 08:35 36.2 64 20 188/87 (120) 99 Room Air Physical Exam General Appearance: no apparent distress Respiratory/Chest: Auscultation: breath sounds normal Cardiovascular: Heart Auscultation: RRR Abdomen: Inspection & Palpation: soft Liver: non-tender Assessment and Plan stable for colonoscopy
--- NOTE | 2017-06-04 09:33 | GI REPORT ---
Procedure Date: 06/04/2017 8:45 AM Procedure: Colonoscopy Indications: Positive Cologuard test Medicines: See the Anesthesia note for documentation of the administered medications Complications: No immediate complications. Estimated Blood Loss: Estimated blood loss was minimal. Procedure: Pre-Anesthesia Assessment: - Prior to the procedure, a History and Physical was performed, and patient medications, allergies and sensitivities were reviewed. The patient's tolerance of previous anesthesia was reviewed. - The risks and benefits of the procedure and the sedation options and risks were discussed with the patient. All questions were answered and informed consent was obtained. - Patient identification and proposed procedure were verified prior to the procedure by the physician and the nurse. The procedure was verified in the pre-procedure area. - Pre-procedure physical examination revealed no contraindications to sedation. - After reviewing the risks and benefits, the patient was deemed in satisfactory condition to undergo the procedure. After I obtained informed consent, the scope was passed under direct vision. Throughout the procedure, the patient's blood pressure, pulse, and oxygen saturations were monitored continuously. The On-site loaner was introduced through the anus and advanced to the terminal ileum, with identification of the appendiceal orifice and IC valve. The colonoscopy was performed without difficulty. The patient tolerated the procedure well. The quality of the bowel preparation was good. Findings: The perianal and digital rectal examinations were normal. The terminal ileum appeared normal. A 4 mm polyp was found at the hepatic flexure. The polyp was sessile. The polyp was removed with a cold snare. Resection and retrieval were complete. Verification of patient identification for the specimen was done by the physician and nurse using the patient's name and medical record number. Estimated blood loss was minimal. A 4 mm polyp was found at 60 cm proximal to the anus. The polyp was sessile. The polyp was removed with a cold snare. Resection and retrieval were complete. Verification of patient identification for the specimen was done by the physician and nurse using the patient's name and medical record number. Estimated blood loss was minimal. A 4 mm polyp was found at 40 cm proximal to the anus. The polyp was sessile. The polyp was removed with a cold snare. Resection and retrieval were complete. Verification of patient identification for the specimen was done by the physician and nurse using the patient's name and medical record number. Estimated blood loss was minimal. A 4 mm polyp was found at 30 cm proximal to the anus. The polyp was sessile. The polyp was removed with a cold snare. Resection and retrieval were complete. Verification of patient identification for the specimen was done by the physician and nurse using the patient's name and medical record number. Estimated blood loss was minimal. Multiple medium-mouthed diverticula were found in the sigmoid colon and in the descending colon. Internal hemorrhoids were found during retroflexion. Impression: - The examined portion of the ileum was normal. - One 4 mm polyp at the hepatic flexure, removed with a cold snare. Resected and retrieved. - One 4 mm polyp at 60 cm proximal to the anus, removed with a cold snare. Resected and retrieved. - One 4 mm polyp at 40 cm proximal to the anus, removed with a cold snare. Resected and retrieved. - One 4 mm polyp at 30 cm proximal to the anus, removed with a cold snare. Resected and retrieved. - Diverticulosis in the sigmoid colon and in the descending colon. - Internal hemorrhoids. Recommendation: - Await pathology results. - Discharge patient to home. Xavier Montero M.D. Xavier Montero MD 06/04/2017 9:33:00 AM This report has been signed electronically. Note Initiated On: 06/04/2017 8:45 AM I attest to the content of the Intraoperative Record and orders documented therein, exceptions below
--- NOTE | 2017-06-04 09:34 | Discharge Instructions ---
Endoscopy Patient Instructions Date / Procedure(s) Performed Jun 04, 2017. Colonoscopy Allergy Information Coded Allergies: Gold (Verified Allergy, Unknown, hives, 03/25/17) Losartan (Verified Allergy, Unknown, hypotension, 03/25/17) Penicillins (Verified Allergy, Unknown, RASH, 03/25/17) Triamcinolone (Verified Allergy, Unknown, "pustules/redness", 03/25/17) Discharge Date / Findings Jun 04, 2017. multiple colon polyps. Medication Instructions Stopped Medication(s): Warfarin 5 days ago Restart Stopped Medication(s): start warfarin tonight Provider Instructions Activity Restrictions - No exercising or heavy lifting for 24 hours. - Do not drink alcohol the day of the procedure. - Do not drive a car or operate machinery until the day after the procedure. - Do not make any important decisions or sign important papers in 24 hours after the procedure. Following Day: - Return to full activity which may include returning to work/school. Diet Start your diet with liquids and light foods (jello, soup, juice, toast). Then eat your usual diet if not nauseated. Treatment For Common After Affects For mild abdominal pain, bloating, or excessive gas: - Rest - Eat lightly - Lie on right side Follow-Up Information Follow-up with Dr. King as scheduled Anesthesia Information What You Should Know You have had a procedure that required some medicine to reduce anxiety and discomfort. This treatment is called moderate sedation. After receiving the treatment, you may be sleepy, but you will be able to breathe on your own. The effects of the treatment may last for several hours. Follow these instructions along with Activity/Diet recommendations noted above: * Do NOT do anything where dizziness or clumsiness would be dangerous. * Rest quietly at home today, then you can be up and about tomorrow. * Have a responsible person stay with you the rest of today. * You may have had an I.V. today. If so, you may take the dressing off later today. Recommendations Call your doctor if: * Trouble breathing * Continuous vomiting for more than 24 hours * Temperature above 101 degrees * Severe abdominal pain or bloating * Pain not relieved by pain medicine ordered * There is increased drainage or redness from any incision * A large amount of rectal bleeding greater than 2-3 tablespoons. (If you had a polyp/s removed or have hemorrhoids, a small amount of blood - from the rectum is to be expected.) * You have any unanswered questions or concerns. IN THE EVENT OF A SERIOUS EMERGENCY, GO TO THE NEAREST EMERGENCY ROOM Your discharge instructions were prepared by provider Xavier Montero. Patient Instructions Signature Page Gaurav Recio Patient (or Guardian) Signature/Date: I have read and understand the instructions given to me by my caregivers. Caregiver/RN/Doctor Signature/Date: The above-named patient and/or guardian has received patient instructions on this date. + Original Patient Signature Page (only) stays with chart. Please make copy for patient.
--- NOTE | 2017-06-04 09:44 | Anesthesiology Progress Note ---
Anesthesia Post Op Note Date & Time Jun 04, 2017 at 09:44 Vital Signs Pain Intensity: 0 Vital Signs Past 12 Hours Date Time Temp Pulse Resp B/P (MAP) Pulse Ox O2 Delivery O2 Flow Rate FiO2 06/04/17 09:32 62 16 140/74 (96) 97 Room Air 06/04/17 08:35 36.2 64 20 188/87 (120) 99 Room Air Notes Mental Status: alert / awake / arousable, participated in evaluation Pt Amnestic to Procedure: Yes Nausea / Vomiting: adequately controlled Pain: adequately controlled Airway Patency, RR, SpO2: stable & adequate BP & HR: stable & adequate Hydration State: stable & adequate Anesthetic Complications: no major complications apparent
[2017-06-04 10:02] VITALS: BP 172/88; PULSE 58; O2SAT 97
== END | disposition home or self-care (01) ==
LOC: C.GI 08:00
PROVIDERS: ATTEND Internal Medicine Gastroenterology
DX: R19.5 Other fecal abnormalities (principal); K63.5 Polyp of colon; K64.8 Other hemorrhoids; K57.30 Diverticulosis of large intestine without perforation or abscess without bleeding; Z87.891 Personal history of nicotine dependence; Z87.81 Personal history of (healed) traumatic fracture; J45.909 Unspecified asthma, uncomplicated; I25.10 Atherosclerotic heart disease of native coronary artery without angina pectoris; I10 Essential (primary) hypertension; Z95.818 Presence of other cardiac implants and grafts; K21.9 Gastro-esophageal reflux disease without esophagitis; E11.9 Type 2 diabetes mellitus without complications; Z85.72 Personal history of non-Hodgkin lymphomas; D69.3 Immune thrombocytopenic purpura

== ENCOUNTER 2017-07-04 20:48 | Emergency (ER) | payer OTHER ==
[~2017-07-04] VITALS: Ht 170.2 cm; Wt 83.2 kg
[~2017-07-04 20:48] MED LIST changes: -AMIO200T4 PO; -AUG0.05O4 TOP; -FLNIN/ NAE; -HYDR25CA PO; -HYDR50CA2 PO; -LISI-789 PO; -NRV/5 PO; -PRED20TA PO; -PROPOFOL IV EMULSION 10 MG/ML 20 ML VIAL IV ONE; -SODIUM CHLORIDE 0.9% 500ML 500 ML IV ONE; -TACR0.1O6 TOP
[2017-07-04 20:50] VITALS: TEMP 36.7; Ht 170.2 cm; Wt 83.2 kg
--- NOTE | 2017-07-04 21:32 | EMERGENCY ROOM VISIT NOTE ---
ED Visit Note First contact with patient: 21:08 This Patient was discussed with the physician orthopaedic physician assistant, Gaurav Roth PA-C. The pertinent historical and physical exam findings were confirmed. I agree with the studies ordered and with the interpretations of these studies. I agree with the disposition and care plan.
[2017-07-04] MEDS ORDERED: HYDR50CA2 PO (21:36)
[2017-07-04] MEDS ORDERED: hydrOXYzine HCL 25 MG TAB PO STA (21:37)
[2017-07-04 21:55] VITALS: BP 168/78; PULSE 78; O2SAT 100
[2017-07-04] MEDS ORDERED: AUG0.05O4 TOP (22:12)
[2017-07-04] MEDS ORDERED: TACR0.1O6 TOP (22:12)
[2017-07-05] MEDS ORDERED: PRED20TA PO (09:53)
--- NOTE | 2017-07-05 16:34 | EMERGENCY ROOM VISIT NOTE ---
ED Visit Note First contact with patient: 21:08 Chief Complaint: I have itchy skin all over. History of Present Illness: Mr. Santos is a 72-year-old white male who ambulates into the ED accompanied by family members complaining of a spreading rash and itchy skin. Patient reports he has had a rash on his buttocks cheeks for the last 2 years. He reports he has been seen by cook soup and multiple tests were performed but the rash has not been identified. He reports the rash has been itchy and it has been controlled with steroid creams. Additionally he reports that he was initially prescribed Benadryl which took the rash and the itching away but made his sugars uncontrollable because of his diabetes. On his last visit to the cook soup he was encouraged use Benadryl for itching and reports he has been using it but has had no relief of the itching. Patient reports 2 days ago he noticed spreading of the rash over both elbows, both knees, his back and in his waistline. With the worsening rash she also reports there is been worsening itchiness and it has not been controlled with his topical steroids. He does report that when he itches the rash occasionally there is a slight oozing of clear drainage from the lesions of the rash and if he itches it hard enough he has resolution of itching. He has not identified any other aggravating or alleviating factors related to his symptoms. He has not taken any additional medications for his symptoms prior to arrival at the hospital.. He denies any other symptoms including fevers, chills, sweats, sensations of throat swelling, cough, wheezing, shortness of breath, chest pain , abdominal pain, nausea, vomiting, decreased appetite joint pains, recent insect/tick bites, extremity weakness/numbness/tingling. Review of Systems: As noted above in history of present illness. 8 body systems were reviewed and found to be negative as noted above. Past Medical History: Diabetes, coronary artery disease, dyslipidemia, autoimmune hemolytic anemia, ITP, status post cholecystectomy, tonsillectomy and heart stent placement Current Medications: Lipitor, Glucophage, artificial tears, Prilosec, aspirin, multivitamins, Glucotrol, Coumadin. Allergies to Medications: Lovastatin, penicillin, triamcinolone and gold. Social History: Patient is currently retired; he feels safe in his home environment; he denies tobacco and alcohol use. Physical Examination: Vital Signs: Date Time Temp Pulse Resp B/P (MAP) Pulse Ox O2 Delivery O2 Flow Rate FiO2 07/04/17 21:55 78 20 168/78 100 07/04/17 20:50 36.7 100 18 168/90 96 Room Air GENERAL: 72-year-old male in mild distress due to symptoms, nontoxic-appearing, afebrile and hemodynamically stable. NEUROLOGICAL: Awake, alert and oriented to person, place and time. Answering questions appropriately and following commands. SKIN: Warm, dry and pink. Rash: Patient has a diffuse rash on his buttocks, posterior elbows, anterior knees, anterior waist over the long and of his underwear and thoracic back. The eruption appears as vesicles that are erythematous and slightly elevated off the skin sitting on a plane base of skin. These lesions are not confluent. Some of the lesions are excoriated. There is no local erythema or edema around the rash or the excoriated lesions. The skin does not appear cellulitic. The rash is normal body temperature and does not feel hot. No lymphangitis. HEENT: Atraumatic and normocephalic. PERRLA. Sclera white and conjunctiva pink. No drainage from naris. Oral cavity moist and pink. Airway is patent. Pharynx is nonerythematous or edematous. Speech normal. THORAX: Lungs sounds are clear to auscultation and equal bilaterally with symmetrical chest wall. No wheezing, rales or rhonchi. ABDOMEN: Flat, soft and nontender. Positive bowel sounds in all quadrants. No guarding, rigidity or organomegaly. EXTREMITIES: Moves all extremities well on command and with purpose. All distal neurovascular statuses are intact and equal bilaterally. No tenderness or swelling of the involved joints. Full range of motion of all joints. ED Course: Patient is assessed as noted above. Patient's medication list was reviewed. Patient's case was reviewed with Dr. Perez; we agreed on diagnostic approach, treatment, disposition and plan. Patient was given 25 mg of Vistaril by mouth for pruritus. I lengthy conversation with the patient about restarting steroids and he requested that oral steroids not be given because of his problems with controlling his blood sugars in the past. He agreed to continue his topical steroids. Patient was educated about tonight's findings and instructed on his treatment plan; he verbalizes understanding and agreement with this plan. Clinical Impression: Pruritus. Worsening primary rash. Disposition: Patient discharged home in stable condition accompanied by family member; prior to departure he was reassessed and subjectively reported he was feeling the same. Plan: Patient was encouraged to continue his current medications as prescribed. Patient was prescribed Vistaril 25 mg every 6 hours and 125 mg of Zantac every 12 hours for itchy skin. Call therapy were discussed with the patient. Patient was encouraged to avoid hot showers. Patient was encouraged to call his cook soup and inform them of today's ED visit and request a follow-up earlier than August. Patient was encouraged return ED for worsening rash, worsening itchy skin, fevers or any new/concerning symptoms.
== END 2017-07-04 21:55 | disposition home or self-care (01) ==
LOC: C.EDB 20:49
DX: L29.9 Pruritus, unspecified (principal); R21 Rash and other nonspecific skin eruption; E11.9 Type 2 diabetes mellitus without complications; I25.10 Atherosclerotic heart disease of native coronary artery without angina pectoris; E78.5 Hyperlipidemia, unspecified; D59.1 Other autoimmune hemolytic anemias; D69.3 Immune thrombocytopenic purpura

== ENCOUNTER 2017-07-05 08:30 | Emergency (ER) | payer OTHER ==
[~2017-07-05] VITALS: Ht 170.2 cm; Wt 82.1 kg
[~2017-07-05 08:30] MED LIST changes: +AUG0.05O4 TOP; +HYDR50CA2 PO; +TACR0.1O6 TOP
[2017-07-05 08:45] VITALS: TEMP 36.7; Ht 170.2 cm; Wt 82.1 kg
--- NOTE | 2017-07-05 09:35 | EMERGENCY ROOM VISIT NOTE ---
History Report prepared by Wei: Diana Hickman Under the Supervision of: Dr. Stefan Bernstein M.D. First contact with patient: 09:04 Chief Complaint: RASH Stated Complaint: RASH, WAS HERE LAST NIGHT History of Present Illness The patient is a 72 year old male who presents to the Emergency Room with complaints of a persistent rash that began two days ago. He currently rates his discomfort as a 10/10 in severity. The patient states that he has had a similar rash intermittently over the past two years. He states that he has treated his rash with Betamethasone and tacrolimus cream. The patient states that these two medications has helped with itchy. He states that steroids have helped his symptoms in the past. The patient states that it started with a small, erythematous, itchy rash between his butt-cheeks, but now notes that it has spread to his knees and elbows. He states that he was evaluated in the hospital last evening for his symptoms and states that he was prescribed Vistaril. The patient states that his last dose of Vistaril was at 0315. He denies any fever or chills. Source of History: patient Onset: two days ago Position: other (global) Symptom Intensity: 10/10 Quality: other (rash) Timing: other (persistent) Associated Symptoms: No fevers, No chills Review of Systems All systems have been listed, reviewed, and are negative other than those previously mentioned. Please see Additional Medical History Sheet. Past Medical & Surgical Medical Problems: (1) Clostridium difficile colitis (2) Diabetes mellitus type 2 (3) Diverticular disease of colon (4) Diverticulitis (5) Dyslipidemia (6) Essential hypertension (7) History of adenomatous polyp of colon (8) History of non-Hodgkin's lymphoma (9) Paroxysmal atrial fibrillation Surgical Problems: (1) Status post cholecystectomy (2) Status post vasectomy Family History Breast cancer SISTER Diabetes mellitus BROTHER SISTER FH: [place] (myocardial infarction) FATHER BROTHER FH: heart disease FATHER BROTHER Ovarian cancer SISTER Stroke MOTHER Social History Smoking Status: Never Smoker Alcohol Use: none Marital Status: Housing Status: lives with family Occupation Status: other Current/Historical Medications Scheduled Aspirin (Aspirin Ec), 81 MG PO QPM Atorvastatin (Lipitor), 10 MG PO HS Betamethasone Dip Aug 0.05% (Diprolene 0.05%), 1 APPLN TOP BID Glipizide (Glucotrol), 10 MG PO BID Metformin Hcl (Glucophage), 1,000 MG PO BID Multivitamins/Minerals (Mvi With Minerals), 1 TAB PO QAM Omeprazole (Prilosec), 20 MG PO QAM Prednisone (Prednisone), 20 MG PO BID Warfarin Sodium (Coumadin), 5 MG PO QPM Scheduled PRN Artificial Tear Solution (Just Tears Eye Drops), 1 DROP OPB BID PRN for PRN Hydroxyzine Pamoate (Vistaril), 0.5 TAB PO Q6H PRN for Itching Tacrolimus (Topical) (Tacrolimus), 1 APPLN TOP BID PRN for ARMS & LEGS Allergies Coded Allergies: Gold (Verified Allergy, Unknown, hives, 03/25/17) Losartan (Verified Allergy, Unknown, hypotension, 03/25/17) Penicillins (Verified Allergy, Unknown, RASH, 03/25/17) Triamcinolone (Verified Allergy, Unknown, "pustules/redness", 03/25/17) Physical Exam Vital Signs Date Time Temp Pulse Resp B/P (MAP) Pulse Ox O2 Delivery O2 Flow Rate FiO2 07/05/17 09:57 75 157/100 93 07/05/17 08:45 36.7 72 18 171/81 97 Room Air Physical Exam GENERAL: Patient awake, alert, oriented x 3. Patient follows commands. Patient does not appear toxic. Patient is adequately hydrated and well- nourished. SKIN: Erythematous bumps on bilateral sides of gluteal cleft, and bilateral anterior shins knee down, left elbow is scabbed over. HEENT: Normal head, pupils equal, reactive to light and accommodation. Ears normal. Oral cavity and posterior pharynx appear normal. Neck: Without adenopathy, no neck vein distention. LUNGS: Clear to auscultation. No wheezes, no rales, no rhonchi. HEART: No murmurs. No gallops. No rubs ABDOMEN: No masses, no rebound, no hepatomegaly or splenomegaly. EXTREMITIES: No signs of trauma. No pedal or pretibial edema. No calf or thigh tenderness. NEUROLOGIC: Cranial nerves II-XII within normal limits. No gross motor sensory function deficits. Medical Decision & Procedures Medications Administered Medications (Trade) Dose Ordered Sig/Pollo Route Start Time Stop Time Status Last Admin Dose Admin Prednisone (PredniSONE TAB) 60 mg NOW STAT PO 07/05/17 09:36 07/05/17 09:37 DC 07/05/17 09:44 60 MG ED Course 900: Past medical records reviewed. The patient was evaluated in room A12B. A complete history and physical examination was performed by the medical student. 926: Past medical records reviewed. The patient was evaluated in room A12B. A complete history and physical examination was performed. I discussed the exam findings with him and I discussed the treatment plan. He verbalized complete understanding and agreement. The patient is ready for discharge shortly. 935: Ordered Prednisone 60 mg PO. Medical Decision Nurses notes reviewed. Medical history sheet reviewed. Differential diagnosis includes but is not limited to: Atopic or contact dermatitis, allergic reaction , psoriasis, eczema, viral exanthem. The patient had this recurring rash for some time. He normally improves with oral steroids. He was here recently but not placed on that medication because he is diabetic. The patient now wants steroids and understands that he could raise his blood sugar slightly. We discussed options and I agreed to give him oral steroids. He will continue taking Vistaril. He also has topical ointments to help with the rash. Medication Reconcilliation Current Medication List: was personally reviewed by me Blood Pressure Screening Patient's blood pressure: Elevated blood pressure Blood pressure disposition: Referred to PCP Impression Primary Impression: Rash Scribe Attestation The scribe's documentation has been prepared under my direction and personally reviewed by me in its entirety. I confirm that the note above accurately reflects all work, treatment, procedures, and medical decision making performed by me. Departure Information Dispostion Home / Self-Care Prescriptions Prednisone (Prednisone) 20 Mg Tab 20 MG PO BID for 5 Days, #10 TAB Prov: Stefan Bernstein M.D. 07/05/17 Referrals Noble King D.O. (PCP) Melvin Quispe MD Forms HOME CARE DOCUMENTATION FORM, IMPORTANT VISIT INFORMATION Patient Instructions [facility] Additional Instructions Prednisone 20 mg twice a day for 5 days. Start tomorrow. Prednisone may cause your blood sugars to rise. Continue the topical ointments as directed. Continue Vistaril every 4-6 hours as needed for itching. Vistaril may cause significant drowsiness. Do not drive while taking Vistaril. 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 Follow up with your family physician regarding your elevated blood pressure.
[2017-07-05] MEDS ORDERED: PRED20TA PO (09:53)
[2017-07-05 09:57] VITALS: BP 157/100; PULSE 75; O2SAT 93
== END 2017-07-05 10:00 | disposition home or self-care (01) ==
LOC: C.EDB 08:33 → C.EDA 10:00
DX: R21 Rash and other nonspecific skin eruption (principal); I10 Essential (primary) hypertension; I48.91 Unspecified atrial fibrillation; E11.9 Type 2 diabetes mellitus without complications; E78.5 Hyperlipidemia, unspecified; K57.30 Diverticulosis of large intestine without perforation or abscess without bleeding; K57.92 Diverticulitis of intestine, part unspecified, without perforation or abscess without bleeding; Z87.19 Personal history of other diseases of the digestive system; Z86.010 Personal history of colon polyps; Z85.71 Personal history of Hodgkin lymphoma; Z90.49 Acquired absence of other specified parts of digestive tract; Z98.52 Vasectomy status; Z79.01 Long term (current) use of anticoagulants; Z79.82 Long term (current) use of aspirin; Z79.84 Long term (current) use of oral hypoglycemic drugs; Z79.899 Other long term (current) drug therapy; Z88.0 Allergy status to penicillin; Z88.8 Allergy status to other drugs, medicaments and biological substances; Z80.3 Family history of malignant neoplasm of breast; Z83.3 Family history of diabetes mellitus; Z82.49 Family history of ischemic heart disease and other diseases of the circulatory system; Z82.3 Family history of stroke

== ENCOUNTER 2017-07-11 20:46 | Emergency (ER) | payer OTHER ==
[~2017-07-11] VITALS: Ht 170.2 cm; Wt 82.7 kg
[~2017-07-11 20:46] MED LIST changes: +PRED20TA PO
[2017-07-11 20:49] VITALS: TEMP 36.9; Ht 170.2 cm; Wt 82.7 kg
[2017-07-11] MEDS ORDERED: FLNIN/ NAE (21:26)
[2017-07-11] MEDS ORDERED: NRV/5 PO (21:26)
[2017-07-11] MEDS ORDERED: HYDR25CA PO (21:26)
[2017-07-11] MEDS ORDERED: RANITIDINE HCL 50 MG/100 ML D5W IV STA (21:44)
[2017-07-11] MEDS ORDERED: DiphenhydrAMINE HCL 50 MG/ML VIAL IV STA (21:44)
[2017-07-11] MEDS ORDERED: DEXAMETHASONE SOD INJ 4 MG/ML VIAL IV STA (21:44)
[2017-07-11] MEDS ORDERED: NovoLIN-R INSULIN PER UNIT CHARGE IV STA (22:51)
[2017-07-11 22:57] LABS: BASO % 0.3 %; BASO ABS # 0.04 K/uL (0-0.2); COMPLETE YES; EOS % 18.8 %; HEMATOCRIT 42.2 % (42-52); IG% 0.8 %; LYMPH % 8.5 %; LYMPH ABS # 1.15 K/uL (1.2-3.4); MEAN CELL VOLUME 86.7 fL (80-100); MEAN CORPUSCULAR HEMOGLOBIN 29.8 pg (25-34); MEAN CORPUSCULAR HGB CONC 34.4 g/dl (32-36); MEAN PLATELET VOLUME 11.6 fL (7.4-10.4); MONO % 9.6 %; PLATELET COUNT 205 K/uL (130-400); RED BLOOD COUNT 4.87 M/uL (4.7-6.1); WHITE BLOOD COUNT 13.49 K/uL (4.8-10.8)
[2017-07-11 23:08] LABS: BUN/CREATININE RATIO 12.5 (10-20); CREATININE 1.4 mg/dl (0.60-1.40); INR 1.7 (0.9-1.1); PARTIAL THROMBOPLASTIN RATIO 1.2; PROTHROMBIN TIME (PATIENT) 18.3 SECONDS (9.0-12.0)
[2017-07-11 23:32] LABS: BETA-HYDROXYBUTYRATE 1.22 mg/dL (0.2-2.81); POTASSIUM 4.3 mmol/L (3.5-5.1)
[2017-07-12] MEDS ORDERED: PRED20TA PO (00:27)
[2017-07-12 00:34] VITALS: BP 173/93; PULSE 67; O2SAT 97
--- NOTE | 2017-07-12 00:55 | EMERGENCY ROOM VISIT NOTE ---
History Report prepared by Wei: Jose Alberto Chavez Under the Supervision of: Dr. Gaurav James M.D. First contact with patient: 21:21 Chief Complaint: NEURO SYMPTOMS Stated Complaint: LIP IS NUMB, DROUPING Nursing Triage Summary: Stated face feels numb and is droopy. Noticed some numbness yesterday. Called daughter at 1700, she stated he was fine. Called about 1830, she noticed a lisp on the phone, advised him to go to ED. Right droop may be due to some edema on right face/lip. Pt states tingling in right face but still feels light touch. History of Present Illness The patient is a 72 year old male who presents to the Emergency Room with complaints of constant right-sided lip swelling beginning yesterday morning somewhat but noticeably last night. He describes initial feelings as it was numb. The patient states his inner lip feels numb, and he developed a sorethroat. He reports around 2.5 hours ago he seemed to worsen and thought he developed a right-sided facial droop. The patient notes it feels like his mouth should be open further. He states this has not happened to him before. The patient reports he was prescribed hydroxyzine for a rash, and it is supposed to give him dry mouth. He notes he was not sure if this was from the medication. The patient's friend states she called him at 1700, and he sounded normal. She reports she then talked to him again at 1999, and she could tell he was not talking right. The patient notes he has had a chronic rash for the past two years, and tonight the rash was extremely itchy. He states he put hand cream on it, and it helped his itch. The patient reports he ate chocolate pudding for dinner. He notes he has a history of diabetes mellitus, and he just finished a dose of prednisone yesterday. His rash was doing better while he was on the prednisone. He has been eating a lot of chocolate recently. Pt denies LOC, recent dental trauma, chemical exposure, eating strawberries, headache, fevers, chills, diaphoresis, visual changes, neck pain, chest pain, breathing difficulties, nausea, vomiting, abdominal pain, back pain, melena, hematochezia , urinary symptoms, weakness, lymphadenopathy, or other complaints. Source of History: patient Onset: last night Position: lip Quality: other (swelling) Timing: constant Associated Symptoms: + sorethroat, + rash Note: Associated symptoms: lip numbness, right-sided facial droop Review of Systems See HPI for pertinent positives and negatives. A total of ten systems were reviewed and were otherwise negative. Past Medical & Surgical Medical Problems: (1) Clostridium difficile colitis (2) Diabetes mellitus type 2 (3) Diverticular disease of colon (4) Diverticulitis (5) Dyslipidemia (6) Essential hypertension (7) History of adenomatous polyp of colon (8) History of non-Hodgkin's lymphoma (9) Paroxysmal atrial fibrillation Surgical Problems: (1) Status post cholecystectomy (2) Status post vasectomy Family History Breast cancer SISTER Diabetes mellitus BROTHER SISTER FH: [place] (myocardial infarction) FATHER BROTHER FH: heart disease FATHER BROTHER Ovarian cancer SISTER Stroke MOTHER Social History Smoking Status: Former Smoker Alcohol Use: none Marital Status: Housing Status: lives with family Occupation Status: other Current/Historical Medications Scheduled Amlodipine Besylate (Amlodipine Besylate), 1 TAB PO DAILY Aspirin (Aspirin Ec), 81 MG PO QPM Atorvastatin (Lipitor), 10 MG PO HS Betamethasone Dip Aug 0.05% (Diprolene 0.05%), 1 APPLN TOP BID Fluticasone Propionate (Fluticasone Propionate), 2 SPRAYS EMANI DAILY Glipizide (Glucotrol), 10 MG PO BID Metformin Hcl (Glucophage), 1,000 MG PO BID Multivitamins/Minerals (Mvi With Minerals), 1 TAB PO QAM Omeprazole (Prilosec), 20 MG PO QAM Prednisone (Prednisone), 0 PO DAILY Warfarin Sodium (Coumadin), 5 MG PO QPM Scheduled PRN Artificial Tear Solution (Just Tears Eye Drops), 1 DROP OPB BID PRN for PRN Hydroxyzine Pamoate (Vistaril), 1 CAP PO for Itching Tacrolimus (Topical) (Tacrolimus), 1 APPLN TOP BID PRN for ARMS & LEGS Allergies Coded Allergies: Gold (Verified Allergy, Unknown, hives, 03/25/17) Losartan (Verified Allergy, Unknown, hypotension, 07/11/17) Penicillins (Verified Allergy, Unknown, RASH, 07/11/17) Triamcinolone (Verified Allergy, Unknown, "pustules/redness", 03/25/17) Physical Exam Vital Signs Date Time Temp Pulse Resp B/P (MAP) Pulse Ox O2 Delivery O2 Flow Rate FiO2 07/12/17 00:34 67 18 173/93 97 Room Air 07/11/17 23:08 59 20 143/76 94 Room Air 07/11/17 22:01 74 21 153/94 93 07/11/17 21:46 67 14 95 07/11/17 21:16 68 22 94 Room Air 07/11/17 21:12 177/89 07/11/17 21:09 69 07/11/17 20:49 36.9 91 18 171/84 95 Room Air Physical Exam GENERAL: Awake, alert, well-appearing, in no distress HENT: Normocephalic, atraumatic. Swelling of the lower lip and cheek. Minimal edema noted on the uvula. Dentition, gums, and tongue appear normal. EYES: Normal conjunctiva. Sclera non-icteric. PERRLA. EOMI. NECK: Supple. No nuchal rigidity. FROM. No JVD. RESPIRATORY: Clear to auscultation. CARDIAC: Regular rate, normal rhythm. Extremities warm and well perfused. Pulses equal. ABDOMEN: Soft, non-distended. No tenderness to palpation. No rebound or guarding. No masses. RECTAL: Deferred. MUSCULOSKELETAL: Chest examination reveals no tenderness. The back is symmetrical on inspection without obvious abnormality. There is no CVA tenderness to palpation. No joint edema. LOWER EXTREMITIES: Calves are equal size bilaterally and non-tender. No edema. No discoloration. NEURO: Normal sensorium. No sensory or motor deficits noted. Cranial nerves II through XII intact. Specifically, facial motor testing was symmetric. SKIN: No jaundice noted. Chronic appearing dermatitis - mildly erythematous and nodular on the elbows and knees Medical Decision & Procedures Laboratory Results 07/11/17 21:00 Red Blood Count 4.87, Mean Corpuscular Volume 86.7, Mean Corpuscular Hemoglobin 29.8, Mean Corpuscular Hemoglobin Concent 34.4, Mean Platelet Volume 11.6, Neutrophils (%) (Auto) 62.0, Lymphocytes (%) (Auto) 8.5, Monocytes (%) (Auto) 9.6, Eosinophils (%) (Auto) 18.8, Basophils (%) (Auto) 0.3, Neutrophils # (Auto ) 8.36, Lymphocytes # (Auto) 1.15, Monocytes # (Auto) 1.29, Eosinophils # (Auto ) 2.54, Basophils # (Auto) 0.04 07/11/17 21:00 Test 07/11/17 21:00 07/11/17 23:57 White Blood Count 13.49 K/uL (4.8-10.8) Red Blood Count 4.87 M/uL (4.7-6.1) Hemoglobin 14.5 g/dL (14.0-18.0) Hematocrit 42.2 % (42-52) Mean Corpuscular Volume 86.7 fL (80-100) Mean Corpuscular Hemoglobin 29.8 pg (25-34) Mean Corpuscular Hemoglobin Concent 34.4 g/dl (32-36) Platelet Count 205 K/uL (130-400) Mean Platelet Volume 11.6 fL (7.4-10.4) Neutrophils (%) (Auto) 62.0 % Lymphocytes (%) (Auto) 8.5 % Monocytes (%) (Auto) 9.6 % Eosinophils (%) (Auto) 18.8 % Basophils (%) (Auto) 0.3 % Neutrophils # (Auto) 8.36 K/uL (1.4-6.5) Lymphocytes # (Auto) 1.15 K/uL (1.2-3.4) Monocytes # (Auto) 1.29 K/uL (0.11-0.59) Eosinophils # (Auto) 2.54 K/uL (0-0.5) Basophils # (Auto) 0.04 K/uL (0-0.2) RDW Standard Deviation 41.7 fL (36.4-46.3) RDW Coefficient of Variation 13.1 % (11.5-14.5) Immature Granulocyte % (Auto) 0.8 % Immature Granulocyte # (Auto) 0.11 K/uL (0.00-0.02) Prothrombin Time 18.3 SECONDS (9.0-12.0) Prothromb Time International Ratio 1.7 (0.9-1.1) Activated Partial Thromboplast Time 31.7 SECONDS (21.0-31.0) Partial Thromboplastin Ratio 1.2 Anion Gap 7.0 mmol/L (3-11) Est Creatinine Clear Calc Drug Dose 47.6 ml/min Estimated GFR () 57.0 Estimated GFR (Non- 49.1 BUN/Creatinine Ratio 12.5 (10-20) Calcium Level 9.0 mg/dl (8.5-10.1) Beta-Hydroxybutyric Acid 1.22 mg/dL (0.2-2.81) Chemistry Specimen Hemolysis Bedside Glucose 129 mg/dl (70-99) Laboratory results reviewed by me Medications Administered Medications (Trade) Dose Ordered Sig/Pollo Route Start Time Stop Time Status Last Admin Dose Admin Ranitidine HCl (zANTac IV) 50 mg NOW STAT IV 07/11/17 21:44 07/11/17 21:47 DC 07/11/17 22:03 50 MG Diphenhydramine HCl (Benadryl Inj) 25 mg NOW STAT IV 07/11/17 21:44 07/11/17 21:47 DC 07/11/17 21:57 25 MG Dexamethasone Sodium Phosphate (Decadron Inj) 10 mg NOW STAT IV 07/11/17 21:44 07/11/17 21:47 DC 07/11/17 22:00 10 MG Insulin Human Regular (novoLIN-R U-100 PER UNIT) 6 units NOW STAT IV 07/11/17 22:51 07/11/17 22:53 DC 07/11/17 22:51 6 UNITS ED Course 2135: The patient was evaluated in room C10. A complete history and physical exam was performed. 2143: Ordered Decadron Inj 10mg IV, Benadryl 25mg IV, Ranitidine HCl 50mg IV 9: I reevaluated the patient. He is feeling better, and his lips are less swollen. 2250: Ordered Insulin Human Regular 6 units IV 0001: I reevaluated the patient. Discussed results and discharge instructions: he verbalized understanding and agreement. The patient is ready for discharge. Medical Decision Prior records/ancillary studies reviewed. Triage Nursing notes reviewed and agree them. The patient's history was concerning for facial numbness and swelling. Differential diagnosis: Etiologies such as allergic reaction, anaphylaxis, urticaria, Bowens-Callum syndrome, toxic epidermal necrolysis, erythema multiforme, cellulitis, neurologic, as well as others were entertained. Physical examination: As above. ER treatment provided: Continuous cardiac monitoring Benadryl 25 mg IV Zantac 50 mg IV Decadron 10 mg IV On reassessment the patient felt better. IV insulin 6 units Diagnostic interpretation by me: The labs revealed a subtle but improving leukocytosis. Differential as above. The patient had hyperglycemia noted but this was corrected. Imaging studies: Deferred The patient had facial swelling and numbness for over 24 hours. He was concerned as he thought there was some facial drooping present. It appeared the swelling was right-sided and resulted in some asymmetry. After the above medications his symptoms seemed improved. Physically his swelling was improved. He did have a trace amount of uvular edema which was resolved on reassessment. His history is challenging as he has had this dermatitis and urticarial-like rash described for over 2 years. He is under the care of dermatology. I did inform him to discuss having his PCP consider referral to allergy. The patient notes that his rash was better when he was on the prednisone. I did discuss the issues with prednisone and his blood glucose. He will modify his diet. It appears the patient has facial swelling but the etiology is not obvious. It is possibly allergic. This does not appear to be neurologic in any way. He is not on any medications at cause angioedema. I did advise him to stop the hydroxyzine as that is the only new thing that was started prior to the onset of symptoms. If he is improved with the above treatment I will have him use prednisone but close follow-up will be necessary. The above treatment did well to reverse the symptoms. After prolonged monitoring and frequent reassessments the patient did very well and symptoms resolved. By the evaluation outlined above emergent etiologies such as airway compromise, Bowens-Callum syndrome, toxic epidermal necrolysis, erythema multiforme, cellulitis, as well as others were deemed relatively unlikely. The patient was informed about the findings as listed above. All questions were answered and he was pleased with the treatment. Return instructions were outlined and the patient was discharged in stable condition. Outpatient prescription management: Stop the Hydroxyzine prednisone Referral: The patient was referred back to his primary care physician for follow-up for a recheck of the current condition. Medication Reconcilliation Current Medication List: was personally reviewed by me Blood Pressure Screening Patient's blood pressure: Elevated blood pressure Blood pressure disposition: Referred to PCP Impression Primary Impression: Facial swelling Additional Impression: Rash Scribe Attestation The scribe's documentation has been prepared under my direction and personally reviewed by me in its entirety. I confirm that the note above accurately reflects all work, treatment, procedures, and medical decision making performed by me. Departure Information Dispostion Home / Self-Care Prescriptions Prednisone (Prednisone) 20 Mg Tab 0 PO DAILY, #18 TAB 3 DAILY FOR 3 DAYS, THEN 2 DAILY FOR 3 DAYS, THEN 1 DAILY FOR 3 DAYS. Prov: Gaurav James MD 07/12/17 Referrals Noble King D.O. (PCP) Forms HOME CARE DOCUMENTATION FORM, IMPORTANT VISIT INFORMATION, WORK / SCHOOL INSTRUCTIONS Patient Instructions My [facility] Additional Instructions Prednisone 20 m DAILY FOR 3 DAYS, THEN 2 DAILY FOR 3 DAYS, THEN 1 DAILY FOR 3 DAYS. Stop the hydroxyzine. Continue other current medications. Monitor blood glucose frequently, at least 3-4 times a day. Watch intake of carbohydrates and sugars. Increase protein and fat in your diet to supplement the decrease in carbohydrates. Follow-up with Dr. King's office tomorrow. Return to emergency department for increasing swelling, difficulty breathing, difficulty swallowing, fever, rash problems, vomiting, weakness, headache, numbness, visual changes or as needed. Problem Qualifiers
== END 2017-07-12 00:39 | disposition home or self-care (01) ==
LOC: C.EDB 20:48 → C.EDC 07-12 00:39
DX: R22.0 Localized swelling, mass and lump, head (principal); R21 Rash and other nonspecific skin eruption; E11.9 Type 2 diabetes mellitus without complications; E78.5 Hyperlipidemia, unspecified; I10 Essential (primary) hypertension; Z86.010 Personal history of colon polyps; I48.0 Paroxysmal atrial fibrillation; Z85.72 Personal history of non-Hodgkin lymphomas; Z90.49 Acquired absence of other specified parts of digestive tract; Z80.3 Family history of malignant neoplasm of breast; Z83.3 Family history of diabetes mellitus; Z82.49 Family history of ischemic heart disease and other diseases of the circulatory system; Z82.3 Family history of stroke; Z80.41 Family history of malignant neoplasm of ovary; Z87.891 Personal history of nicotine dependence; Z79.82 Long term (current) use of aspirin; Z79.899 Other long term (current) drug therapy; Z79.01 Long term (current) use of anticoagulants

== ENCOUNTER 2017-07-24 09:35 | Inpatient (IN) | payer OTHER ==
[~2017-07-24] VITALS: Ht 170.2 cm; Wt 82.0 kg
[~2017-07-24 09:35] MED LIST changes: +FLNIN/ NAE; +HYDR25CA PO; -HYDR50CA2 PO; +NRV/5 PO
--- NOTE | 2017-07-24 09:55 | EMERGENCY ROOM VISIT NOTE ---
ED Visit Note First contact with patient: 09:44 I have seen and examined this patient with Itz Villela and generally agree with the treatment plan as discussed. Problem List Medical Problems: (1) Clostridium difficile colitis Status: Resolved (2) Diabetes mellitus type 2 Permanent Comment: with neuropathy Status: Chronic (3) Diverticular disease of colon Status: Chronic (4) Diverticulitis Status: Resolved (5) Dyslipidemia Status: Chronic (6) Essential hypertension Status: Chronic (7) History of adenomatous polyp of colon Status: Chronic (8) History of non-Hodgkin's lymphoma Status: Chronic (9) Paroxysmal atrial fibrillation Status: Chronic Surgical Problems: (1) Status post cholecystectomy Permanent Comment: 1994 Status: Chronic (2) Status post vasectomy Status: Chronic Current/Historical Medications Scheduled Amlodipine Besylate (Amlodipine Besylate), 1 TAB PO DAILY Aspirin (Aspirin Ec), 81 MG PO QPM Atorvastatin (Lipitor), 10 MG PO HS Betamethasone Dip Aug 0.05% (Diprolene 0.05%), 1 APPLN TOP BID Fluticasone Propionate (Fluticasone Propionate), 2 SPRAYS EMANI DAILY Glipizide (Glucotrol), 10 MG PO BID Metformin Hcl (Glucophage), 1,000 MG PO BID Multivitamins/Minerals (Mvi With Minerals), 1 TAB PO QAM Omeprazole (Prilosec), 20 MG PO QAM Prednisone (Prednisone), 0 PO DAILY Warfarin Sodium (Coumadin), 5 MG PO QPM Scheduled PRN Artificial Tear Solution (Just Tears Eye Drops), 1 DROP OPB BID PRN for PRN Hydroxyzine Pamoate (Vistaril), 1 CAP PO for Itching Tacrolimus (Topical) (Tacrolimus), 1 APPLN TOP BID PRN for ARMS & LEGS Allergies Coded Allergies: Gold (Verified Allergy, Unknown, hives, 03/25/17) Losartan (Verified Allergy, Unknown, hypotension, 07/11/17) Penicillins (Verified Allergy, Unknown, RASH, 07/11/17) Triamcinolone (Verified Allergy, Unknown, "pustules/redness", 03/25/17) Vital Signs Date Time Temp Pulse Resp B/P (MAP) Pulse Ox O2 Delivery O2 Flow Rate FiO2 07/24/17 09:38 36.5 95 18 163/101 97 Room Air Departure Information Referrals Sulman,Noble A., D.O. (PCP) Patient Instructions [facility]
[2017-07-24] MEDS ORDERED: SODIUM CHLORIDE 0.9% 1000ML 1,000 ML IV ONE ×2 (10:00→11:00)
[2017-07-24] MEDS ORDERED: CLINDAMYCIN IV 900 MG in DEXTROSE 5% 100ML 100 ML IV ONE (10:00)
[2017-07-24] MEDS ORDERED: DOCU100C31 PO (10:16)
[2017-07-24] MEDS ORDERED: PRED20TA PO (10:16)
[2017-07-24] MEDS ORDERED: ALBUAER INH (10:16)
[2017-07-24] MEDS ORDERED: FOLI1TAB7 PO (10:16)
[2017-07-24] MEDS ORDERED: LPT/40 PO (10:16)
[2017-07-24] MEDS ORDERED: CYAN10005 PO (10:16)
[2017-07-24] MEDS ORDERED: ASTN (10:16)
[2017-07-24 10:26] LABS: BASO % 0.3 %; BASO ABS # 0.03 K/uL (0-0.2); COMPLETE YES; EOS % 12.8 %; IG% 0.5 %; LYMPH % 5.4 %; MEAN CELL VOLUME 87.3 fL (80-100); MEAN CORPUSCULAR HEMOGLOBIN 28.9 pg (25-34); MEAN CORPUSCULAR HGB CONC 33.1 g/dl (32-36); MEAN PLATELET VOLUME 11.6 fL (7.4-10.4); MONO % 9.8 %; NEUT % 71.2 %; PLATELET COUNT 196 K/uL (130-400); WHITE BLOOD COUNT 11.04 K/uL (4.8-10.8)
[2017-07-24 10:44] LABS: CALCIUM 8.7 mg/dl (8.5-10.1); CREATININE 1.34 mg/dl (0.60-1.40); POTASSIUM 3.8 mmol/L (3.5-5.1)
[2017-07-24 10:46] LABS: ALB/GLOB RATIO 1.2 (0.9-2)
[2017-07-24] MEDS ORDERED: VANCOMYCIN INJ 1,000 MG in SODIUM CHLORIDE 0.9% 250ML 250 ML IV STA (10:51)
[2017-07-24 11:20] VITALS: O2SAT 97; Ht 170.2 cm; Wt 82.0 kg
[2017-07-24] MEDS ORDERED: GLUCOSE 10 TABS/TUBE PO PRN (12:30)
[2017-07-24] MEDS ORDERED: GLUCOSE 40% GEL 15 GM TUBE PO PRN (12:30)
[2017-07-24] MEDS ORDERED: GLUCAGON FOR INJ 1 MG VIAL SQ PRN (12:30)
[2017-07-24] MEDS ORDERED: ALBUTEROL HFA 8 GM INHALER INH PRN (12:30)
[2017-07-24] MEDS ORDERED: DEXTROSE 50% 50 ML SYR IV PRN (12:30)
[2017-07-24 13:03] LABS: INR 2.8 (0.9-1.1); PARTIAL THROMBOPLASTIN RATIO 1.6; PROTHROMBIN TIME (PATIENT) 30.8 SECONDS (9.0-12.0)
--- NOTE | 2017-07-24 13:15 | DIAGNOSTIC IMAGING REPORT ---
L VENOUS DOPPLER UPR EXT UNIL HISTORY: 72 years-old Male rule out DVT, rule out abscess acute swelling of the left upper extremity COMPARISON: None available TECHNIQUE: Multiple real-time sonography images of the left upper extremity deep venous structures were obtained assessing grayscale appearance, color and spectral flow. FINDINGS: There is normal flow, augmentation and phasicity within the left upper extremity deep venous system. Moderate amount of subcutaneous edema is noted about the distal forearm. No focal collection to suggest abscess. IMPRESSION: 1. No sonographic evidence of deep venous thrombosis within the left upper extremity. 2. No focal abscess. Moderate amount of subcutaneous edema of the distal forearm. The above report was generated using voice recognition software. It may contain grammatical, syntax or spelling errors. Electronically signed by: Darren Cotto M.D. 07/24/2017 1:14 PM Dictated Date/Time: 07/24/2017 1:12 PM
--- NOTE | 2017-07-24 13:15 | History and Physical ---
History & Physical Date & Time of Service: Jul 24, 2017 at 12:55 Chief Complaint: Allergic Reaction Left Arm Swelling Primary Care Physician: Noble King D.O. History of Present Illness Source: patient, family (daughter) 72 year old M with history of autoimmune disorders including pruritic rash which has been attributed as outpatient to celiac disease and gluten sensitivity. Patient has been scratching left wrist and left elbow and developed skin erythema and swelling of left hand with extension of involvement to left arm/left elbow area. This occurred a week ago Patient then on outpatient antibiotics. However without improvement of symptoms. Patient was given IV clindamycin and IV Vancomycin in the ED, Denies fevers at homes. Patient has history of atrial fibrillation without being on rate control medications although reports that in the past he was on amiodarone but has been off the medication due to drug intolerance vs side effects. On exam patient has irregular heart rate between 100 to 110 beats per minute. Patient denies chest pain or shortness of breath. Patient only on coumadin 5 mg daily for anticoagulation for atrial fibrillation. There are areas of intermittent bruises of his extremities. In addition reports history of Non Hodgkin Lymphoma and was on chemotherapy but reports having been in remission for 7 years. Has history of ITP for which patient last reports of receiving chemotherapy in January 2017. 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 Found to have lactic acid level of 2.31in ED presentation. Have discussed with patient and patient's daughter that the plan is to hold home diabetes medication for now and give sliding scale insulin with IV fluids and IV antibiotics for left upper extremity cellulitis, imaging of left upper extremity, and monitor the atrial fibrillation on telemetry as check the INR and adjust coumadin dosing. 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 Status: Chronic (3) Diverticular disease of colon Status: Chronic (4) Diverticulitis Status: Resolved (5) Dyslipidemia Status: Chronic (6) Essential hypertension Status: Chronic (7) History of adenomatous polyp of colon Status: Chronic (8) History of non-Hodgkin's lymphoma Status: Chronic (9) Paroxysmal atrial fibrillation Status: Chronic Surgical Problems: (1) Status post cholecystectomy Permanent Comment: 1994 Status: Chronic (2) Status post vasectomy Status: Chronic Family History Breast cancer SISTER Diabetes mellitus BROTHER SISTER FH: [place] (myocardial infarction) FATHER BROTHER FH: heart disease FATHER BROTHER Ovarian cancer SISTER Stroke MOTHER Social History Smoking Status: Former Smoker Marital Status: Housing status: lives with family Occupational Status: other Immunizations History of Influenza Vaccine: Yes Influenza Vaccine Date: Jun 17, 2011 History of Tetanus Vaccine?: Yes History of Pneumococcal: Yes Pneumococcal Date: Mar 16, 2010 History of Hepatitis B Vaccine: No Multi-Drug Resistant Organisms History of MDRO: No Allergies Coded Allergies: Gold (Verified Allergy, Unknown, hives, 07/24/17) Losartan (Verified Allergy, Unknown, hypotension, 07/24/17) Penicillins (Verified Allergy, Unknown, RASH, 07/24/17) Triamcinolone (Verified Allergy, Unknown, "pustules/redness", 07/24/17) Home Medications Scheduled Aspirin (Aspirin Ec), 81 MG PO QPM Atorvastatin (Lipitor), 40 MG PO DAILY Azelastine Hcl (Astelin Nasal [place]), 1-2 SPRAYS NA BID Betamethasone Dip Aug 0.05% (Diprolene 0.05%), 1 APPLN TOP BID Cyanocobalamin (Vitamin B-12), 1,000 MCG PO DAILY Docusate Sodium (Docusate Sodium), 100 MG PO DAILY Fluticasone Propionate (Fluticasone Propionate), 2 SPRAYS EMANI DAILY Folic Acid (Folvite), 1 MG PO DAILY Glipizide (Glucotrol), 10 MG PO BID Metformin Hcl (Glucophage), 1,000 MG PO BID Multivitamins/Minerals (Mvi With Minerals), 1 TAB PO QAM Omeprazole (Prilosec), 20 MG PO QAM Prednisone (Prednisone), 20 MG PO DAILY Warfarin Sodium (Coumadin), 5 MG PO QPM Scheduled PRN Albuterol Sulfate (Proventil Hfa), 2 PUFFS INH Q6 PRN for Wheezing Artificial Tear Solution (Just Tears Eye Drops), 1 DROP OPB BID PRN for PRN Tacrolimus (Topical) (Tacrolimus), 1 APPLN TOP BID PRN for ARMS & LEGS Review of Systems Constitutional: No fever, No chills, No fatigue Eyes: No worsening of vision, No eye pain, No discharge ENT: No unusual epistaxis, No nasal symptoms, No sore throat, No trouble swallowing Respiratory: No cough, No sputum, No wheezing, No shortness of breath, No dyspnea on exertion, No dyspnea at rest Cardiovascular: No chest pain, No edema Abdomen: No pain Genitourinary - Male: No dysuria Neurologic: No numbness/tingling Integumentary: + rash (left arm, left elbow), + itch (pruritus with rash) Physical Exam Vital Signs Date Time Temp Pulse Resp B/P (MAP) Pulse Ox O2 Delivery O2 Flow Rate FiO2 07/24/17 12:37 86 20 155/85 97 Room Air 07/24/17 11:20 97 Room Air 07/24/17 11:08 90 20 130/93 96 Room Air 07/24/17 09:38 36.5 95 18 163/101 97 Room Air General Appearance: no apparent distress Head: normocephalic, atraumatic Eyes: normal inspection, EOMI ENT: hearing grossly normal, pharynx normal Neck: supple, no JVD, trachea midline Respiratory/Chest: chest non-tender, lungs clear, normal breath sounds, no respiratory distress, no accessory muscle use Cardiovascular: + tachycardia (heart rate between 100 to 100 beats per minute) , + abnormal rhythm (irregular) Abdomen/GI: normal bowel sounds, non tender, soft Back: no muscle spasm Extremities/Musculoskelatal: no calf tenderness, no pedal edema, + swelling ( left hand swelling with erythema to AC area of left arm) Neurologic/Psych: no motor/sensory deficits, alert, normal mood/affect, oriented x 3 Skin: + rash (rash of left arm), + pertinent finding (intermittent areas of brusing of extremities) Diagnostics Laboratory Results Results Past 24 Hours Test 07/24/17 10:05 07/24/17 10:13 Range/Units White Blood Count 11.04 4.8-10.8 K/uL Red Blood Count 5.50 4.7-6.1 M/uL Hemoglobin 15.9 14.0-18.0 g/dL Hematocrit 48.0 42-52 % Mean Corpuscular Volume 87.3 80-100 fL Mean Corpuscular Hemoglobin 28.9 25-34 pg Mean Corpuscular Hemoglobin Concent 33.1 32-36 g/dl Platelet Count 196 130-400 K/uL Mean Platelet Volume 11.6 7.4-10.4 fL Neutrophils (%) (Auto) 71.2 % Lymphocytes (%) (Auto) 5.4 % Monocytes (%) (Auto) 9.8 % Eosinophils (%) (Auto) 12.8 % Basophils (%) (Auto) 0.3 % Neutrophils # (Auto) 7.87 1.4-6.5 K/uL Lymphocytes # (Auto) 0.60 1.2-3.4 K/uL Monocytes # (Auto) 1.08 0.11-0.59 K/uL Eosinophils # (Auto) 1.41 0-0.5 K/uL Basophils # (Auto) 0.03 0-0.2 K/uL RDW Standard Deviation 43.2 36.4-46.3 fL RDW Coefficient of Variation 13.5 11.5-14.5 % Immature Granulocyte % (Auto) 0.5 % Immature Granulocyte # (Auto) 0.05 0.00-0.02 K/uL Sodium Level 135 136-145 mmol/L Potassium Level 3.8 3.5-5.1 mmol/L Chloride Level 99 98-107 mmol/L Carbon Dioxide Level 29 21-32 mmol/L Anion Gap 7.0 3-11 mmol/L Blood Urea Nitrogen 13 7-18 mg/dl Creatinine 1.34 0.60-1.40 mg/dl Est Creatinine Clear Calc Drug Dose 45.2 ml/min Estimated GFR () 60.1 Estimated GFR (Non- 51.8 BUN/Creatinine Ratio 10.0 10-20 Random Glucose 264 70-99 mg/dl Calcium Level 8.7 8.5-10.1 mg/dl Total Bilirubin 1.2 0.2-1 mg/dl Aspartate Amino Transf (AST/SGOT) 17 15-37 U/L Alanine Aminotransferase (ALT/SGPT) 30 12-78 U/L Alkaline Phosphatase 89 45-117 U/L Total Protein 6.7 6.4-8.2 gm/dl Albumin 3.6 3.4-5.0 gm/dl Globulin 3.1 2.5-4.0 gm/dl Albumin/Globulin Ratio 1.2 0.9-2 Bedside Lactic Acid Venous 2.31 0.90-1.70 mmol/L Microbiology Results 07/24/17 Blood Culture, Received Pending 07/24/17 Blood Culture, Received Pending No prior EKG available Impression Assessment and Plan 72 year old M with history of autoimmune disorders including pruritic rash which has been attributed as outpatient to celiac disease and gluten sensitivity. Patient has been scratching left wrist and left elbow and developed skin erythema and swelling of left hand with extension of involvement to left arm/left elbow area. This occurred a week ago Patient then on outpatient antibiotics. However without improvement of symptoms. Patient was given IV clindamycin and IV Vancomycin in the ED, Denies fevers at homes. Patient has history of atrial fibrillation without being on rate control medications although reports that in the past he was on amiodarone but has been off the medication due to drug intolerance vs side effects. On exam patient has irregular heart rate between 100 to 110 beats per minute. Patient denies chest pain or shortness of breath. Patient only on coumadin 5 mg daily for anticoagulation for atrial fibrillation. There are areas of intermittent bruises of his extremities. In addition reports history of Non Hodgkin Lymphoma and was on chemotherapy but reports having been in remission for 7 years. Has history of ITP for which patient last reports of receiving chemotherapy in January 2017. 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 Found to have lactic acid level of 2.31in ED presentation. Have discussed with patient and patient's daughter that the plan is to hold home diabetes medication for now and give sliding scale insulin with IV fluids and IV antibiotics for left upper extremity cellulitis, imaging of left upper extremity, and monitor the atrial fibrillation on telemetry as check the INR and adjust coumadin dosing. Left upper extremity Cellulitis -given IV clindamycin and IV Vancomycin in the ED on 07/24/17 -blood culture sent on -has penicillin allergy - leads to rash and itchy pustules -will continue IV clindamycin for skin infection coverage and IV Vancomycin for MRSA -left upper extremity ultrasound ordered for rule out DVT or abscess Atrial Fibrillation -check INR, if INR is between 2 to 3, then continue home dose coumadin of 5 mg daily -not on rate control medications at home, monitor on telemetry -give IV fluids for tachycardia as patient may be dehydrated and monitor to see if heart rate slows down -Tachycardia also could be from infection, continue IV antibiotics -If rate control medication needed, may start on beta anitha such as lopressor DM -hold home metformin and glipizide, avoid medications to contributes to lactic acidosis -sliding scale insulin as inpatient History of Non Hodgkin Lymphoma, History of ITP, History of Chemotherapy -has WBC of 11 but no other major abnormalities in CBC suggestive Allergies: gluten, penicillin, triamcinolone cream leads to rash History of Rash secondary to gluten/celiac disease -avoid steroid creams or now as this can cause skin breakdown and worsen cellulitis -Benadryl for itch prn DVT prophylaxis -Coumadin Level of Care Telemetry Advanced Directives Existing Living Will: No Existing Power of Metal Leaf Layer: No Resuscitation Status FULL RESUSCITATION VTE Prophylaxis VTE Risk Assessment Done? Y/N: Yes Risk Level: Moderate Given or contraindicated: Warfarin (Coumadin)
[2017-07-24 13:23] VITALS: BP 143/78; PULSE 101; TEMP 36.5; O2SAT 98
--- NOTE | 2017-07-24 13:34 | EMERGENCY ROOM VISIT NOTE ---
History First contact with patient: 09:44 Chief Complaint: WOUND INFECTION Stated Complaint: ALLERGIC REACTION LEFT ARM SWELLING Nursing Triage Summary: pt reports left hand wrist swollen itchy started saturday last week week was at [facility]. reports it is spreading. has marking from clinic visit. suppose to be rechecked tomorrow History of Present Illness The patient is a 72 year old male who presents to the Emergency Room with complaints of pain and swelling in his left forearm that has been worsening over the past week. The patient has been seen in the emergency Department several times over the past few months for various rashes. He does follow with dermatology for this, but continues to have episodes of pruritus. He states that he had a patch on his left wrist that was very itchy, and he did scratch this. He states that about 8 days ago he began having worsening pain in this area as well as increased redness. He went to an urgent care clinic and was given Keflex. The patient is diabetic, and despite being on the antibiotic has had worsening pain and swelling. He now states that he has swelling all the way up into the forearm and near the elbow. He does not have numbness or paresthesias into the hand, but he does feel there is tightness into the wrist area. He does not report distinct fever or chills. He is not taking anything additional for pain and rates his discomfort a 6/10. His sugar has reportedly been running "good". Review of Systems More than 10 systems were reviewed and otherwise negative with the exception of history of present illness. Past Medical/Surgical History Medical Problems: (1) Clostridium difficile colitis (2) Diabetes mellitus type 2 in nonobese (3) Diverticular disease of colon (4) Diverticulitis (5) Dyslipidemia (6) Essential hypertension (7) History of adenomatous polyp of colon (8) History of non-Hodgkin's lymphoma (9) Paroxysmal atrial fibrillation Surgical Problems: (1) Status post cholecystectomy (2) Status post vasectomy Family History Breast cancer SISTER Diabetes mellitus BROTHER SISTER FH: [place] (myocardial infarction) FATHER BROTHER FH: heart disease FATHER BROTHER Ovarian cancer SISTER Stroke MOTHER Social History Smoking Status: Former Smoker Alcohol Use: none Marital Status: Housing Status: lives with family Occupation Status: other Current/Historical Medications Scheduled Aspirin (Aspirin Ec), 81 MG PO QPM Atorvastatin (Lipitor), 40 MG PO DAILY Azelastine Hcl (Astelin Nasal [place]), 1-2 SPRAYS NA BID Betamethasone Dip Aug 0.05% (Diprolene 0.05%), 1 APPLN TOP BID Cyanocobalamin (Vitamin B-12), 1,000 MCG PO DAILY Docusate Sodium (Docusate Sodium), 100 MG PO DAILY Fluticasone Propionate (Fluticasone Propionate), 2 SPRAYS EMANI DAILY Folic Acid (Folvite), 1 MG PO DAILY Glipizide (Glucotrol), 10 MG PO BID Metformin Hcl (Glucophage), 1,000 MG PO BID Multivitamins/Minerals (Mvi With Minerals), 1 TAB PO QAM Omeprazole (Prilosec), 20 MG PO QAM Prednisone (Prednisone), 20 MG PO DAILY Warfarin Sodium (Coumadin), 5 MG PO QPM Scheduled PRN Albuterol Sulfate (Proventil Hfa), 2 PUFFS INH Q6 PRN for Wheezing Artificial Tear Solution (Just Tears Eye Drops), 1 DROP OPB BID PRN for PRN Tacrolimus (Topical) (Tacrolimus), 1 APPLN TOP BID PRN for ARMS & LEGS Physical Exam Vital Signs Date Time Temp Pulse Resp B/P (MAP) Pulse Ox O2 Delivery O2 Flow Rate FiO2 07/24/17 13:23 36.5 101 20 143/78 (99) 98 Room Air 07/24/17 12:37 86 20 155/85 97 Room Air 07/24/17 11:20 97 Room Air 07/24/17 11:08 90 20 130/93 96 Room Air 07/24/17 09:38 36.5 95 18 163/101 97 Room Air Physical Exam VITALS: Vitals are noted on the nurse's note and reviewed by myself. Vital signs stable. GENERAL: Well-developed, well-nourished, white male, who is in no acute distress and resting comfortably. Patient is cooperative with the examination. HEART: Irregularly irregular LUNGS: Clear to auscultation bilaterally without wheezes, rales or rhonchi. No retractions or accessory muscle use. MUSCULOSKELETAL: Noted edema appreciated over the anterior aspect of the left distal forearm. There is an excoriated lesion in this area that may be the primary source of infection. There is a surrounding cellulitis that affects the left hyperthenar region all the way to the proximal forearm. There is no distinct abscess or crepitus. Family Partner strength and left hand is 5/5. Strength appears well otherwise. NEURO: Patient was alert and oriented to person place and time. CN II through XII grossly intact. Medical Decision & Procedures Laboratory Results 07/24/17 10:05 Red Blood Count 5.50, Mean Corpuscular Volume 87.3, Mean Corpuscular Hemoglobin 28.9, Mean Corpuscular Hemoglobin Concent 33.1, Mean Platelet Volume 11.6, Neutrophils (%) (Auto) 71.2, Lymphocytes (%) (Auto) 5.4, Monocytes (%) (Auto) 9.8, Eosinophils (%) (Auto) 12.8, Basophils (%) (Auto) 0.3, Neutrophils # (Auto ) 7.87, Lymphocytes # (Auto) 0.60, Monocytes # (Auto) 1.08, Eosinophils # (Auto ) 1.41, Basophils # (Auto) 0.03 07/24/17 10:05 Test 07/24/17 10:05 07/24/17 10:13 White Blood Count 11.04 K/uL (4.8-10.8) Red Blood Count 5.50 M/uL (4.7-6.1) Hemoglobin 15.9 g/dL (14.0-18.0) Hematocrit 48.0 % (42-52) Mean Corpuscular Volume 87.3 fL (80-100) Mean Corpuscular Hemoglobin 28.9 pg (25-34) Mean Corpuscular Hemoglobin Concent 33.1 g/dl (32-36) Platelet Count 196 K/uL (130-400) Mean Platelet Volume 11.6 fL (7.4-10.4) Neutrophils (%) (Auto) 71.2 % Lymphocytes (%) (Auto) 5.4 % Monocytes (%) (Auto) 9.8 % Eosinophils (%) (Auto) 12.8 % Basophils (%) (Auto) 0.3 % Neutrophils # (Auto) 7.87 K/uL (1.4-6.5) Lymphocytes # (Auto) 0.60 K/uL (1.2-3.4) Monocytes # (Auto) 1.08 K/uL (0.11-0.59) Eosinophils # (Auto) 1.41 K/uL (0-0.5) Basophils # (Auto) 0.03 K/uL (0-0.2) RDW Standard Deviation 43.2 fL (36.4-46.3) RDW Coefficient of Variation 13.5 % (11.5-14.5) Immature Granulocyte % (Auto) 0.5 % Immature Granulocyte # (Auto) 0.05 K/uL (0.00-0.02) Prothrombin Time 30.8 SECONDS (9.0-12.0) Prothromb Time International Ratio 2.8 (0.9-1.1) Activated Partial Thromboplast Time 40.8 SECONDS (21.0-31.0) Partial Thromboplastin Ratio 1.6 Anion Gap 7.0 mmol/L (3-11) Est Creatinine Clear Calc Drug Dose 45.2 ml/min Estimated GFR () 60.1 Estimated GFR (Non- 51.8 BUN/Creatinine Ratio 10.0 (10-20) Calcium Level 8.7 mg/dl (8.5-10.1) Total Bilirubin 1.2 mg/dl (0.2-1) Aspartate Amino Transf (AST/SGOT) 17 U/L (15-37) Alanine Aminotransferase (ALT/SGPT) 30 U/L (12-78) Alkaline Phosphatase 89 U/L (45-117) Total Protein 6.7 gm/dl (6.4-8.2) Albumin 3.6 gm/dl (3.4-5.0) Globulin 3.1 gm/dl (2.5-4.0) Albumin/Globulin Ratio 1.2 (0.9-2) Bedside Lactic Acid Venous 2.31 mmol/L (0.90-1.70) Medications Administered Medications (Trade) Dose Ordered Sig/Pollo Route Start Time Stop Time Status Last Admin Dose Admin Sodium Chloride 1,000 ml @ 999 mls/hr Q1H1M ONCE IV 07/24/17 10:00 07/24/17 11:00 DC 07/24/17 10:09 999 MLS/HR Clindamycin Phosphate 900 mg/ Dextrose 106 ml @ 100 mls/hr ONE ONCE IV 07/24/17 10:00 07/24/17 11:03 DC 07/24/17 10:09 100 MLS/HR Vancomycin HCl 1000 mg/Sodium Chloride 270 ml @ 125 mls/hr NOW STAT IV 07/24/17 10:51 07/24/17 13:02 DC 07/24/17 11:23 125 MLS/HR ED Course Physical exam and history were performed. Nursing notes, EMR, and Medication List were personally reviewed. Patient appears to have cellulitis of the left forearm for at least the past 7 days. He is currently on Keflex and has failed outpatient treatment. He is diabetic. IV access was established and labs were obtained. The patient was given 1 L normal saline and empirically started on clindamycin here in the department. Blood cultures were gathered. The patient's blood work is as above and was reviewed. He does have an elevated white blood cell count of 11,000. He does not have a significant anemia or gross electrolyte imbalance. The patient's lactic acid is elevated and there was considerable concern for sepsis. The patient was given vancomycin IV for the infection. He was also additionally hydrated with a second liter of normal saline. The case was discussed with my attending physician, Dr. Barrientos, who also independently evaluated the patient. We do not feel the patient is well for discharge home, and we did speak with the [facility] hospitalist. The hospitalist agreed to evaluate the patient here in the department. Please see their dictation for further patient course, plan, and disposition. The chart was completed utilizing [employer] Speech Voice Recognition Software. Grammatical errors, random word insertions, pronoun errors, and incomplete sentences are an occasional consequence of this system due to software limitations, ambient noise, and hardware issues. Any formal questions or concerns about the content, text, or information contained within the body of this dictation should be directly addressed to the provider for clarification. . Medical Decision Differential diagnosis: Etiologies such as sepsis, UTI, pneumonia, metabolic, electrolyte abnormalities , cardiac sources, intracerebral event, toxicologic, neurologic, as well as others were entertained. Medication Reconcilliation Current Medication List: was personally reviewed by tx Blood Pressure Screening Patient's blood pressure: Elevated blood pressure (Will be evaluated by hospitalist) Impression Primary Impression: Sepsis Additional Impression: Cellulitis of arm Departure Information Referrals Noble King D.O. (PCP) Patient Instructions My [facility] Problem Qualifiers
[2017-07-24] MEDS ORDERED: VANCOMYCIN CONSULT ACTIVE PRN (14:00)
--- NOTE | 2017-07-24 14:21 | Pharmacy Progress Note ---
Pharmacy Abx Initial Consult Date of Service Jul 24, 2017. Pharmacy Dosing Scope Date of Consult: 07/24/17 Consultation requested by: Dr. French Pharmacy is consulted to initiate IV VANCOMYCIN therapy, order appropriate labs and adjust drug dose/frequency. Subjective The patient is a 72 year old male admitted on Jul 24, 2017 at 12:19 for worsening L arm cellulitis despite outpt use of cephalexin Objective Height (Feet): 5 Height (Inches): 7.00 Weight (Kilograms): 79.200 Vital Signs (Past 12Hrs) Vital Signs Past 12 Hours Date Time Temp Pulse Resp B/P (MAP) Pulse Ox O2 Delivery O2 Flow Rate FiO2 07/24/17 13:23 36.5 101 20 143/78 (99) 98 Room Air 07/24/17 12:37 86 20 155/85 97 Room Air 07/24/17 11:20 97 Room Air 07/24/17 11:08 90 20 130/93 96 Room Air 07/24/17 09:38 36.5 95 18 163/101 97 Room Air Lab Results (24Hrs) Laboratory Tests (24 Hours) Test 07/24/17 10:05 White Blood Count 11.04 K/uL (4.8-10.8) H Red Blood Count 5.50 M/uL (4.7-6.1) Hemoglobin 15.9 g/dL (14.0-18.0) Hematocrit 48.0 % (42-52) Mean Corpuscular Volume 87.3 fL (80-100) Mean Corpuscular Hemoglobin 28.9 pg (25-34) Mean Corpuscular Hemoglobin Concent 33.1 g/dl (32-36) Platelet Count 196 K/uL (130-400) Mean Platelet Volume 11.6 fL (7.4-10.4) H Neutrophils (%) (Auto) 71.2 % Lymphocytes (%) (Auto) 5.4 % Monocytes (%) (Auto) 9.8 % Eosinophils (%) (Auto) 12.8 % Basophils (%) (Auto) 0.3 % Neutrophils # (Auto) 7.87 K/uL (1.4-6.5) H Lymphocytes # (Auto) 0.60 K/uL (1.2-3.4) L Monocytes # (Auto) 1.08 K/uL (0.11-0.59) H Eosinophils # (Auto) 1.41 K/uL (0-0.5) H Basophils # (Auto) 0.03 K/uL (0-0.2) Micro Results Date/Time Source Procedure Growth Status 07/24/17 10:05 Blood Blood Culture Pending Received 07/24/17 10:00 Blood Blood Culture Pending Received Risk Factors for Resistance * Antimicrobial use within the last 90 days: cephalexin Assessment & Plan Assessment Plan Vancomycin IV * Loading dose: 1000 mg (12.6 mg/kg) given x 1 in the ER, this likely only produced a peak concentration of 15-20mcg/mL * Maintenance dose: 1250 mg IV (15.8 mg/kg) every 24 hours, but begin therapy early at 1800 due to lack of full loading dose * Goal trough level for skin / soft tissue infxn : 10 to 20 mcg/mL, however a goal of 15 to 20 mcg/mL may be required if organism w/ CHRISTIE 1 or greater cultured * Trough level ordered for 07/26/17 w/ 3rd maintenance dose * p'kinetic estimates: Vd 0.7L/kg; half-life ~16-17 hours Pharmacy will continue to follow and will adjust dose/frequency as necessary. Thank you.
[2017-07-24] MEDS: SODIUM CHLORIDE 0.9% 1000ML 1,000 ML IV SCH ×2 (14:33→21:47)
[2017-07-24 15:42] VITALS: BP 145/81; PULSE 83; TEMP 36.6; O2SAT 97
[2017-07-24] MEDS: WARFARIN SOD 5 MG TAB PO SCH (16:00)
[2017-07-24] MEDS: INSULIN ASPART 100 UNITS/ML 3 ML PEN SC SCH ×2 (16:15→20:50)
[2017-07-24] MEDS: VANCOMYCIN INJ 1,250 MG in SODIUM CHLORIDE 0.9% 250ML 250 ML IV SCH (16:53)
[2017-07-24] MEDS: DiphenhydrAMINE HCL 50 MG/ML VIAL IV PRN (19:20)
[2017-07-24 19:27] VITALS: BP 126/82; PULSE 80; TEMP 36.7; O2SAT 97
[2017-07-24] MEDS: CLINDAMYCIN IV 600 MG in DEXTROSE 5% 50ML 50 ML IV SCH (20:00)
[2017-07-24] MEDS: ASPIRIN 81 MG ECTAB PO SCH (20:51)
[2017-07-24] MEDS: DiphenhydrAMINE 2%/ZINC 0.1% CREAM 28GM TUBE EXT PRN (21:47)
[2017-07-24] MEDS ORDERED: VANCOMYCIN 1GM/270ML NSS IV SCH (22:00)
[2017-07-24 23:39] VITALS: BP 145/99; PULSE 94; TEMP 36.5; O2SAT 94
[2017-07-25] VITALS (7 sets, daily range): BP systolic 118–163; BP diastolic 80–100; PULSE 80–101; TEMP 36.4–36.9; O2SAT 95–97
[2017-07-25] MEDS: CLINDAMYCIN IV 600 MG in DEXTROSE 5% 50ML 50 ML IV SCH ×3 (03:01→20:32)
[2017-07-25] MEDS: DiphenhydrAMINE HCL 50 MG/ML VIAL IV PRN ×2 (03:02→16:28)
[2017-07-25 06:33] LABS: BASO % 0.3 %; BASO ABS # 0.03 K/uL (0-0.2); COMPLETE YES; EOS % 14.3 %; HEMATOCRIT 41.8 % (42-52); IG% 0.4 %; LYMPH % 7.2 %; LYMPH ABS # 0.65 K/uL (1.2-3.4); MEAN CELL VOLUME 87.1 fL (80-100); MEAN CORPUSCULAR HEMOGLOBIN 29.4 pg (25-34); MEAN CORPUSCULAR HGB CONC 33.7 g/dl (32-36); MEAN PLATELET VOLUME 11.3 fL (7.4-10.4); MONO % 10.6 %; NEUT % 67.2 %; PLATELET COUNT 159 K/uL (130-400)
[2017-07-25 06:51] LABS: INR 2.4 (0.9-1.1); PROTHROMBIN TIME (PATIENT) 26.4 SECONDS (9.0-12.0)
[2017-07-25 07:08] LABS: BUN/CREATININE RATIO 10.2 (10-20); CALCIUM 7.9 mg/dl (8.5-10.1); CREATININE 1.05 mg/dl (0.60-1.40); POTASSIUM 3.8 mmol/L (3.5-5.1)
[2017-07-25 07:10] LABS: ALB/GLOB RATIO 1.1 (0.9-2)
[2017-07-25] MEDS: INSULIN ASPART 100 UNITS/ML 3 ML PEN SC SCH ×4 (07:48→20:42)
[2017-07-25] MEDS: ATORVASTATIN 40 MG TAB PO SCH (07:50)
[2017-07-25] MEDS: DiphenhydrAMINE 2%/ZINC 0.1% CREAM 28GM TUBE EXT PRN ×2 (07:51→20:36)
[2017-07-25] MEDS ORDERED: METOPROLOL TARTRATE 25 MG TAB PO STA (10:16)
--- NOTE | 2017-07-25 10:55 | Pharmacy Progress Note ---
Pharmacy Abx Dose Short Note Date of Service Jul 25, 2017. Assessment & Plan Assessment 72 year old male receiving Vancomycin and clindamycin for treatment of cellulitis Day # 2 of antimicrobial therapy. Plan Vancomycin * Based on improvement in renal function, adjusted frequency to vanco 1.25gm IV q 16 hours starting @ 1030 today. * Goal trough level for skin / soft tissue infxn : 10 to 20 mcg/mL, however a goal of 15 to 20 mcg/mL may be required if organism w/ CHRISTIE 1 or greater cultured * Trough level ordered for: 07/26/17 @ 1730 Pharmacy will continue to follow and will adjust dose/frequency as necessary. Thank you.
[2017-07-25] MEDS: VANCOMYCIN INJ 1,250 MG in SODIUM CHLORIDE 0.9% 250ML 250 ML IV SCH (11:28)
--- NOTE | 2017-07-25 15:22 | Progress Note ---
Internal Med Progress Note Date of Service: Jul 25, 2017. Provider Documentation: SUBJECTIVE: patient has been scratching the left upper extremities, new excoriations along the arm, reports that topical and IV Benadryl is not effective. Telemetry overnight with atrial fibrillation with RVR to 120s at times however patient denies chest pain or shortness of breath Objective Exam: General: no acute distress Eyes- EOMI ENT- no oral exudates Neck- midline trachea, no JVD Lungs- CTABL, no wheezing Heart- tachycardic, irregularly irregular Abdomen- soft, nontender, + bowel sounds Pelvis/Buttock: well demarcated areas of rash on buttock, small circular rash along right inguinal area Extremities- excoriations on left upper extremity from wrist to arm, multiple small areas of bruises with erythema and bruises of left upper extremity, left palmar swelling unchanged Neuro- alter and oriented x 3, ambulatory on own power Lab data as noted below. 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 -given IV clindamycin and IV Vancomycin in the ED on 07/24/17 -blood culture sent on 07/24/17 -has penicillin allergy - leads to rash and itchy pustules -will empirically continue IV clindamycin for skin infection coverage and IV Vancomycin for MRSA -left upper extremity ultrasound without DVT or abscess -have consulted dermatology to advise on what topical ointments can help patient prevent himself from scratching the skin and worsen skin breakdown, patient have been on topical and IV Benadryl but not effective, would prefer not to have patient on topical steroids as this could cause further skin breaks Listed allergies on records and patient Gold leads to Hives Hydroxyzine leads to Edema face/lips/tongue Triamcinolone leads to rash Cozaar [Losartan] leads to Hypotension Penicillins leads to Rash Atrial Fibrillation with Tachycardia -INR therapeutic, continue home dose coumadin of 5 mg daily -not on rate control medications at home, monitor on telemetry and heart observed to increase to 120s, metoprolol tartrate 12.5 mg BID ordered DM -hold home metformin and glipizide, avoid medications to contributes to lactic acidosis -sliding scale insulin as inpatient History of Non Hodgkin Lymphoma, History of ITP, History of Chemotherapy -has WBC of 11 to 9 -Hgb 15.2 to 14.1 -Platelet 196 to 156 -continue to monitor cell lines DVT prophylaxis -Coumadin Vital Signs: Date Time Temp Pulse Resp B/P (MAP) Pulse Ox O2 Delivery O2 Flow Rate FiO2 07/25/17 12:00 Room Air 07/25/17 11:06 100 130/80 (97) 07/25/17 08:01 36.9 101 18 118/80 (93) 97 07/25/17 08:00 Room Air 07/25/17 04:00 Room Air 07/25/17 03:07 36.5 92 20 163/100 (121) 95 Room Air 07/25/17 00:00 Room Air 07/24/17 23:39 36.5 94 17 145/99 (114) 94 Room Air 07/24/17 20:00 Room Air 07/24/17 19:27 36.7 80 18 126/82 (97) 97 Room Air 07/24/17 16:00 Room Air 07/24/17 15:42 36.6 83 18 145/81 (102) 97 Room Air Lab Results: Results Past 24 Hours Test 07/24/17 16:48 07/24/17 19:46 07/25/17 06:14 07/25/17 06:54 Range/Units Bedside Glucose 147 173 154 70-99 mg/dl White Blood Count 9.00 4.8-10.8 K/uL Red Blood Count 4.80 4.7-6.1 M/uL Hemoglobin 14.1 14.0-18.0 g/dL Hematocrit 41.8 42-52 % Mean Corpuscular Volume 87.1 80-100 fL Mean Corpuscular Hemoglobin 29.4 25-34 pg Mean Corpuscular Hemoglobin Concent 33.7 32-36 g/dl Platelet Count 159 130-400 K/uL Mean Platelet Volume 11.3 7.4-10.4 fL Neutrophils (%) (Auto) 67.2 % Lymphocytes (%) (Auto) 7.2 % Monocytes (%) (Auto) 10.6 % Eosinophils (%) (Auto) 14.3 % Basophils (%) (Auto) 0.3 % Neutrophils # (Auto) 6.04 1.4-6.5 K/uL Lymphocytes # (Auto) 0.65 1.2-3.4 K/uL Monocytes # (Auto) 0.95 0.11-0.59 K/uL Eosinophils # (Auto) 1.29 0-0.5 K/uL Basophils # (Auto) 0.03 0-0.2 K/uL RDW Standard Deviation 42.7 36.4-46.3 fL RDW Coefficient of Variation 13.4 11.5-14.5 % Immature Granulocyte % (Auto) 0.4 % Immature Granulocyte # (Auto) 0.04 0.00-0.02 K/uL Prothrombin Time 26.4 9.0-12.0 SECONDS Prothromb Time International Ratio 2.4 0.9-1.1 Sodium Level 137 136-145 mmol/L Potassium Level 3.8 3.5-5.1 mmol/L Chloride Level 105 98-107 mmol/L Carbon Dioxide Level 27 21-32 mmol/L Anion Gap 5.0 3-11 mmol/L Blood Urea Nitrogen 11 7-18 mg/dl Creatinine 1.05 0.60-1.40 mg/dl Est Creatinine Clear Calc Drug Dose 57.7 ml/min Estimated GFR () 80.7 Estimated GFR (Non- 69.6 BUN/Creatinine Ratio 10.2 10-20 Random Glucose 177 70-99 mg/dl Calcium Level 7.9 8.5-10.1 mg/dl Total Bilirubin 1.0 0.2-1 mg/dl Aspartate Amino Transf (AST/SGOT) 17 15-37 U/L Alanine Aminotransferase (ALT/SGPT) 25 12-78 U/L Alkaline Phosphatase 72 45-117 U/L Total Protein 5.7 6.4-8.2 gm/dl Albumin 3.0 3.4-5.0 gm/dl Globulin 2.7 2.5-4.0 gm/dl Albumin/Globulin Ratio 1.1 0.9-2 Test 07/25/17 10:59 Range/Units Bedside Glucose 191 70-99 mg/dl
[2017-07-25] MEDS: WARFARIN SOD 5 MG TAB PO SCH (16:09)
[2017-07-25] MEDS: SODIUM CHLORIDE 0.9% 1000ML 1,000 ML IV SCH (17:14)
--- NOTE | 2017-07-25 20:19 | DERMATOLOGY CONSULTATION ---
DATE OF CONSULTATION: 07/25/2017 DERMATOLOGY INPATIENT CONSULTATION TIME: 4:11 p.m. CHIEF COMPLAINT: Rash. HISTORY OF PRESENT ILLNESS: The patient is an extremely pleasant 72-year-old male, I was consulted on by his primary admitting physician. He has a 2-year history of pruritic rash beginning on the buttocks. It was not associated with any systemic symptoms such as GI upset, nausea, vomiting or diarrhea. The rash spread to encompass areas on his knees and elbows and he has been seen in outpatient dermatology by Dr. Zainab Lee at [facility] in [place]. She has done outside biopsies which the primary team are kind enough to get for me before the consultation. These were consistent with dermatitis herpetiformis. He has been treated with oral prednisone in the past which helps his itching in his skin, but he re-flares. He has also been treated with topical steroids. He has listed as triamcinolone allergy that his primary admitting physician tells me he got from speaking with the patient's daughter. By asking, the patient denies any triamcinolone allergy and the primary feels that it was only pustules which could just be the disease. As such, I am unsure that he has a true triamcinolone allergy. He tolerates oral steroids well. He is admitted due to cellulitis which he states has been occurring since last Saturday about 9 days ago. He was reportedly seen outpatient at walk-in clinic at [place] and given Keflex for redness and inflammation. He had no fevers, but he did have soreness in his left forearm where he had some scratches. The redness and inflammation got worse, so he came to the Emergency Room and was admitted. He was started on IV clindamycin and IV vancomycin. According to the patient, his itching is not better on IV or topical Benadryl; however, his swelling and redness are down. He said yesterday night he had no knuckles and today he can bend his fingers and see his knuckles, so he feels improved. I was consulted by the primary team for options on how to treat the patient. NOTE: Review of his outside records does confirm a diagnosis of dermatitis herpetiformis pathologically. It appears that the plan is to start dapsone according to the patient, they were waiting until after his EGD on 08/18/2016 to start this as his electrical maintenance supervisor felt that they may influence the results by starting the dapsone early. The patient complains of itching on his wrists, forearms, elbows, knees and buttocks. Otherwise, he denies any systemic symptoms at this time including headaches, fevers, sweats, chest pain, coughing, shortness of breath, abdominal pain, nausea, vomiting or diarrhea. The patient states he was told to go on a gluten-free diet; however, he states it is "hard and expensive, so has not been following a gluten-free diet at home yet. PAST MEDICAL HISTORY: AFib, on Coumadin; diabetes, on metformin and glipizide; non-Hodgkin's lymphoma years ago (7); and history of ITP with history of receiving chemotherapy in January 2017. FAMILY HISTORY: Negative for autoimmune disease. Sister with breast cancer, brother and sister with diabetes, MA in father and brother, stroke in mother and ovarian cancer in sister. SOCIAL HISTORY: Former smoker. He is . He lives with his family. ALLERGIES: GOLD, LOSARTAN, PENICILLIN AND HYDROXYZINE. This is per report, I do not see Hydroxyzine currently listed in the patient's chart, so we would recommend let it be listed as an allergy. There was an episode he was in the Emergency Room with facial swelling, while they could not be sure it was an allergy, I would consider it as such currently. I am suspicious about the triamcinolone allergy. HOME MEDICATIONS: Aspirin 81 daily, atorvastatin 40 mg daily, azelastine nasal spray 1-2 sprays b.i.d., betamethasone dipropionate 0.05 cream to rash b.i.d. Vitamin B12 1000 mcg daily, docusate sodium 100 mg daily, fluticasone propionate 2 sprays daily, folic acid 1 mg daily, glipizide 10 mg b.i.d., metformin 1000 mg b.i.d., MVI, Prilosec 20 mg q.a.m., prednisone 20 mg daily, warfarin 5 mg q.p.m. PHYSICAL EXAMINATION GENERAL: A well-appearing male in no acute distress, sitting in bed, easily conversant, easily moving. SKIN: Complete examination was completed of face, scalp, neck, chest, back, abdomen, ears, hair, upepr and lower extremities including hands, finger, feet and groin and buttocks. The patient has erythematous plaques on bilateral elbows which are slightly juicy. Similarly on the knees, a more annular rash on the posterior medial buttocks with more classic, juicy, erythematous papules coalescing and plaques on the right flank. No evidence of oral or ocular involvement. He does have redness extending from his wrist, midway up his forearm with some swelling in the left arm. There is no current outline for me to see if this is increased or decreased currently. He does have the ability to move his fingers and can easily see knuckles today which he says is much better than yesterday. IMPRESSION AND PLAN: 1. Cellulitis, being managed by the primary team. Likely local scratching was nidus for infection. 2. Dermatitis herpetiformis. The patient has classic skin findings of dermatitis herpetiformis, also proven by biopsy results. Currently treated with betamethasone dipropionate 0.05% cream which I recommend the primary team continue anywhere other than the left forearm as I understand their hesitation to use steroids where he has active cellulitis. I note that the patient was on home prednisone at 20 mg daily. With his cellulitis, it appears that this has been stopped. Please be aware that this will likely result in worsening of his skin disease. I did discuss with the primary team starting either dapsone gel (Aczone) b.i.d. if they do not wish to use topical steroids, or oral dapsone. They can start this in-house, or if they prefer, they can have his electrical maintenance supervisor to start this after his cellulitis is managed and he is released. I would recommend they arrange follow up with his home electrical maintenance supervisor at [facility] within approximately 3 days to 5 days after discharge. If starting in-house, I would start at 25 mg daily for 3 days, 50 mg daily for 3 days and then 75 mg daily until he follows up with his home electrical maintenance supervisor. Please note that he will have to be monitored both with his Coumadin level and with his CBC and LFTs while on this medication. If there are questions, I will be happy to answer them or they can wait and have his home electrical maintenance supervisor begin the medication. I did print information out for the patient about this disorder, so he understands a bit more. Please contact me with any further questions. I thank you for the consultation. I will sign off for the moment. Office number [phone], cell phone [phone]. Please note: I was able to speak to this primary electrical maintenance supervisor after the consult. THe dapsone was held due to an unusual CBC and she is checking on this with his PMD, so I would recommend oral Dapsone NOT be started until he follows up with his primary electrical maintenance supervisor. MARILYND
[2017-07-25] MEDS: ASPIRIN 81 MG ECTAB PO SCH (20:32)
[2017-07-25] MEDS: METOPROLOL TARTRATE 25 MG TAB PO SCH (20:33)
[2017-07-25] MEDS: ACETAMINOPHEN 325 MG TAB PO PRN (21:44)
[2017-07-26] VITALS (7 sets, daily range): BP systolic 111–145; BP diastolic 71–88; PULSE 72–98; TEMP 36.3–36.5; O2SAT 94–97
[2017-07-26] MEDS: DiphenhydrAMINE HCL 50 MG/ML VIAL IV PRN ×3 (00:13→20:58)
[2017-07-26] MEDS ORDERED: LORAZEPAM 0.5 MG TAB PO STA (00:27)
[2017-07-26] MEDS ORDERED: VANCOMYCIN INJ 1,250 MG in SODIUM CHLORIDE 0.9% 250ML 250 ML IV SCH (02:00)
[2017-07-26] MEDS: CLINDAMYCIN IV 600 MG in DEXTROSE 5% 50ML 50 ML IV SCH ×3 (04:36→20:43)
[2017-07-26 05:57] LABS: BASO % 0.5 %; BASO ABS # 0.04 K/uL (0-0.2); COMPLETE YES; EOS % 18.4 %; HEMATOCRIT 41.2 % (42-52); IG% 0.3 %; LYMPH % 12.9 %; LYMPH ABS # 0.95 K/uL (1.2-3.4); MEAN CELL VOLUME 86.7 fL (80-100); MEAN CORPUSCULAR HEMOGLOBIN 29.5 pg (25-34); MEAN PLATELET VOLUME 10.7 fL (7.4-10.4); MONO % 13.7 %; NEUT % 54.2 %; PLATELET COUNT 150 K/uL (130-400); RED BLOOD COUNT 4.75 M/uL (4.7-6.1); WHITE BLOOD COUNT 7.35 K/uL (4.8-10.8)
[2017-07-26 06:25] LABS: BUN/CREATININE RATIO 8.1 (10-20); CALCIUM 7.8 mg/dl (8.5-10.1); CREATININE 1.15 mg/dl (0.60-1.40); POTASSIUM 3.7 mmol/L (3.5-5.1)
[2017-07-26] MEDS ORDERED: POTASSIUM CHLORIDE 20 MEQ TABCR PO STA (07:37)
[2017-07-26] MEDS: SODIUM CHLORIDE 0.9% 1000ML 1,000 ML IV SCH ×2 (08:57→20:43)
[2017-07-26] MEDS: METOPROLOL TARTRATE 25 MG TAB PO SCH ×2 (08:58→20:44)
[2017-07-26] MEDS: ATORVASTATIN 40 MG TAB PO SCH (08:58)
[2017-07-26] MEDS: INSULIN ASPART 100 UNITS/ML 3 ML PEN SC SCH ×4 (09:11→20:47)
[2017-07-26] MEDS ORDERED: VANCOMYCIN TROUGH ONE ×2 (09:30→17:30)
[2017-07-26] MEDS: BETAMETHASONE DIP AUG (DIPROLENE) 0.05% CR 15 GM TUBE EXT PRN ×2 (09:37→19:22)
[2017-07-26] MEDS: DiphenhydrAMINE 2%/ZINC 0.1% CREAM 28GM TUBE EXT PRN ×2 (09:37→19:22)
--- NOTE | 2017-07-26 11:19 | Progress Note ---
Internal Med Progress Note Date of Service: Jul 26, 2017. Provider Documentation: SUBJECTIVE: Patient reports improvements of pruritus of affected left upper extremity cellulitis area with topical Benadryl and positioning of the arm. Patient is still able to move his left hand however the cellulitis area is still erythematous and left hand still swollen. Patient has received beta anitha for atrial fibrillation since yesterday and denies lightheadedness. No chest pain or shortness of breath or feeling palpitations Objective Exam: General: no acute distress Eyes- EOMI ENT- no oral exudates Neck- midline trachea, no JVD Lungs- CTABL, no wheezing Heart- tachycardic, irregularly irregular Abdomen- soft, nontender, + bowel sounds Pelvis/Buttock on previous day's exam: well demarcated areas of rash on buttock , small circular rash along right inguinal area Extremities- excoriations on left upper extremity from wrist to arm, multiple small areas of bruises with erythema and bruises of left upper extremity, left palmar swelling Neuro- alter and oriented x 3, ambulatory on own power 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 Nurses can apply topical steroids to the left elbow and the arm above bicipital groove as well as other affected areas of pruritus including buttock area. Avoid application of topical steroids to face or groin. Listed allergies on records and patient Gold leads to Hives Hydroxyzine leads to Edema face/lips/tongue Triamcinolone leads to rash Cozaar [Losartan] leads to Hypotension Penicillins leads to Rash Atrial Fibrillation with Tachycardia -INR therapeutic, continue home dose coumadin of 5 mg daily -not on rate control medications at home, have been monitored on telemetry and heart observed to increase to 120s, metoprolol tartrate 12.5 mg BID has controlled heart rate better, will continue to monitor on telemetry and adjust beta blockers as needed DM -hold home metformin and glipizide, avoid medications to contributes to lactic acidosis -sliding scale insulin as inpatient History of Non Hodgkin Lymphoma, History of ITP, History of Chemotherapy -has WBC of 11 to 9 to 7.35 -Hgb 15.2 to 14.1 to 14 -Platelet 196 to 156 to 150 -continue to monitor cell lines DVT prophylaxis -Coumadin daily Vital Signs: Date Time Temp Pulse Resp B/P (MAP) Pulse Ox O2 Delivery O2 Flow Rate FiO2 07/26/17 08:08 36.4 81 18 127/77 (94) 97 Room Air 07/26/17 04:30 36.3 94 16 129/72 (91) 94 Room Air 07/26/17 04:30 94 Room Air 07/26/17 00:20 96 Room Air 07/25/17 23:44 36.4 80 19 128/82 (97) 96 07/25/17 20:35 96 Room Air 07/25/17 19:21 36.6 82 18 127/81 (96) 96 Room Air 07/25/17 16:03 36.7 87 16 125/80 (95) 97 Room Air 07/25/17 16:00 Room Air 07/25/17 12:00 Room Air Lab Results: Results Past 24 Hours Test 07/25/17 16:27 07/25/17 20:25 07/26/17 05:39 07/26/17 06:44 Range/Units Bedside Glucose 186 189 168 70-99 mg/dl White Blood Count 7.35 4.8-10.8 K/uL Red Blood Count 4.75 4.7-6.1 M/uL Hemoglobin 14.0 14.0-18.0 g/dL Hematocrit 41.2 42-52 % Mean Corpuscular Volume 86.7 80-100 fL Mean Corpuscular Hemoglobin 29.5 25-34 pg Mean Corpuscular Hemoglobin Concent 34.0 32-36 g/dl Platelet Count 150 130-400 K/uL Mean Platelet Volume 10.7 7.4-10.4 fL Neutrophils (%) (Auto) 54.2 % Lymphocytes (%) (Auto) 12.9 % Monocytes (%) (Auto) 13.7 % Eosinophils (%) (Auto) 18.4 % Basophils (%) (Auto) 0.5 % Neutrophils # (Auto) 3.98 1.4-6.5 K/uL Lymphocytes # (Auto) 0.95 1.2-3.4 K/uL Monocytes # (Auto) 1.01 0.11-0.59 K/uL Eosinophils # (Auto) 1.35 0-0.5 K/uL Basophils # (Auto) 0.04 0-0.2 K/uL RDW Standard Deviation 43.0 36.4-46.3 fL RDW Coefficient of Variation 13.5 11.5-14.5 % Immature Granulocyte % (Auto) 0.3 % Immature Granulocyte # (Auto) 0.02 0.00-0.02 K/uL Sodium Level 140 136-145 mmol/L Potassium Level 3.7 3.5-5.1 mmol/L Chloride Level 107 98-107 mmol/L Carbon Dioxide Level 23 21-32 mmol/L Anion Gap 10.0 3-11 mmol/L Blood Urea Nitrogen 9 7-18 mg/dl Creatinine 1.15 0.60-1.40 mg/dl Est Creatinine Clear Calc Drug Dose 52.7 ml/min Estimated GFR () 72.3 Estimated GFR (Non- 62.3 BUN/Creatinine Ratio 8.1 10-20 Random Glucose 186 70-99 mg/dl Calcium Level 7.8 8.5-10.1 mg/dl Total Bilirubin 0.9 0.2-1 mg/dl Aspartate Amino Transf (AST/SGOT) 16 15-37 U/L Alanine Aminotransferase (ALT/SGPT) 29 12-78 U/L Alkaline Phosphatase 74 45-117 U/L Total Protein 5.9 6.4-8.2 gm/dl Albumin 3.0 3.4-5.0 gm/dl Globulin 2.9 2.5-4.0 gm/dl Albumin/Globulin Ratio 1.0 0.9-2
--- NOTE | 2017-07-26 12:50 | Dermatology Progress Note ---
Objective Vital Signs Date Time Temp Pulse Resp B/P (MAP) Pulse Ox O2 Delivery O2 Flow Rate FiO2 07/26/17 12:25 36.5 72 18 124/78 (93) 96 Room Air 07/26/17 08:08 36.4 81 18 127/77 (94) 97 Room Air 07/26/17 04:30 36.3 94 16 129/72 (91) 94 Room Air 07/26/17 04:30 94 Room Air 07/26/17 00:20 96 Room Air 07/25/17 23:44 36.4 80 19 128/82 (97) 96 07/25/17 20:35 96 Room Air 07/25/17 19:21 36.6 82 18 127/81 (96) 96 Room Air 07/25/17 16:03 36.7 87 16 125/80 (95) 97 Room Air 07/25/17 16:00 Room Air Laboratory Results Last 24 Hours Test 07/25/17 16:27 07/25/17 20:25 07/26/17 05:39 07/26/17 06:44 Bedside Glucose 186 mg/dl 189 mg/dl 168 mg/dl White Blood Count 7.35 K/uL Red Blood Count 4.75 M/uL Hemoglobin 14.0 g/dL Hematocrit 41.2 % Mean Corpuscular Volume 86.7 fL Mean Corpuscular Hemoglobin 29.5 pg Mean Corpuscular Hemoglobin Concent 34.0 g/dl Platelet Count 150 K/uL Mean Platelet Volume 10.7 fL Neutrophils (%) (Auto) 54.2 % Lymphocytes (%) (Auto) 12.9 % Monocytes (%) (Auto) 13.7 % Eosinophils (%) (Auto) 18.4 % Basophils (%) (Auto) 0.5 % Neutrophils # (Auto) 3.98 K/uL Lymphocytes # (Auto) 0.95 K/uL Monocytes # (Auto) 1.01 K/uL Eosinophils # (Auto) 1.35 K/uL Basophils # (Auto) 0.04 K/uL RDW Standard Deviation 43.0 fL RDW Coefficient of Variation 13.5 % Immature Granulocyte % (Auto) 0.3 % Immature Granulocyte # (Auto) 0.02 K/uL Sodium Level 140 mmol/L Potassium Level 3.7 mmol/L Chloride Level 107 mmol/L Carbon Dioxide Level 23 mmol/L Anion Gap 10.0 mmol/L Blood Urea Nitrogen 9 mg/dl Creatinine 1.15 mg/dl Est Creatinine Clear Calc Drug Dose 52.7 ml/min Estimated GFR () 72.3 Estimated GFR (Non- 62.3 BUN/Creatinine Ratio 8.1 Random Glucose 186 mg/dl Calcium Level 7.8 mg/dl Total Bilirubin 0.9 mg/dl Aspartate Amino Transf (AST/SGOT) 16 U/L Alanine Aminotransferase (ALT/SGPT) 29 U/L Alkaline Phosphatase 74 U/L Total Protein 5.9 gm/dl Albumin 3.0 gm/dl Globulin 2.9 gm/dl Albumin/Globulin Ratio 1.0 Test 07/26/17 11:32 Bedside Glucose 204 mg/dl Assessment and Plan Note: I did not include in my original consult, but you could try low dose doxepin for itching if needed. Also, to reiterate, I did speak with his primary batch freezer operator after the consult , she is happy to see him quickly after discharge, just call her office to arrange. I would recommend NOT starting dapsone orally in the hospital, as she was checking with his PMD about CBC before starting.
[2017-07-26] MEDS: WARFARIN SOD 5 MG TAB PO SCH (16:33)
[2017-07-26] MEDS: ASPIRIN 81 MG ECTAB PO SCH (20:44)
[2017-07-27] VITALS (7 sets, daily range): BP systolic 120–146; BP diastolic 78–96; PULSE 67–95; TEMP 36.5–36.8; O2SAT 95–100
[2017-07-27] MEDS ORDERED: LORATADINE 10 MG TAB PO STA (00:41)
[2017-07-27] MEDS: CLINDAMYCIN IV 600 MG in DEXTROSE 5% 50ML 50 ML IV SCH ×3 (03:45→19:50)
[2017-07-27] MEDS: DiphenhydrAMINE HCL 50 MG/ML VIAL IV PRN ×4 (04:55→21:58)
[2017-07-27] MEDS ORDERED: DOXEPIN HCL 10 MG CAP PO ONE (05:15)
[2017-07-27] MEDS ORDERED: hydrOXYzine HCL 10 MG TAB PO STA (05:54)
[2017-07-27 08:09] LABS: BASO % 0.4 %; BASO ABS # 0.03 K/uL (0-0.2); COMPLETE YES; EOS % 18.2 %; HEMATOCRIT 41.6 % (42-52); IG% 0.4 %; LYMPH % 11.1 %; LYMPH ABS # 0.82 K/uL (1.2-3.4); MEAN CELL VOLUME 86.5 fL (80-100); MEAN CORPUSCULAR HEMOGLOBIN 30.4 pg (25-34); MEAN CORPUSCULAR HGB CONC 35.1 g/dl (32-36); MONO % 13.1 %; NEUT % 56.8 %; PLATELET COUNT 153 K/uL (130-400); RED BLOOD COUNT 4.81 M/uL (4.7-6.1); WHITE BLOOD COUNT 7.38 K/uL (4.8-10.8)
[2017-07-27 08:17] LABS: INR 2.5 (0.9-1.1); PROTHROMBIN TIME (PATIENT) 28.2 SECONDS (9.0-12.0)
[2017-07-27] MEDS: BETAMETHASONE DIP AUG (DIPROLENE) 0.05% CR 15 GM TUBE EXT PRN ×2 (08:42→16:02)
[2017-07-27] MEDS: DiphenhydrAMINE 2%/ZINC 0.1% CREAM 28GM TUBE EXT PRN ×2 (08:42→16:02)
[2017-07-27] MEDS: ATORVASTATIN 40 MG TAB PO SCH (08:42)
[2017-07-27] MEDS: METOPROLOL TARTRATE 25 MG TAB PO SCH ×2 (08:43→19:50)
[2017-07-27 08:44] LABS: CREATININE 1.22 mg/dl (0.60-1.40)
[2017-07-27] MEDS: INSULIN ASPART 100 UNITS/ML 3 ML PEN SC SCH ×4 (08:48→21:00)
[2017-07-27] MEDS: SODIUM CHLORIDE 0.9% 1000ML 1,000 ML IV SCH ×2 (12:08→23:30)
--- NOTE | 2017-07-27 13:24 | Progress Note ---
Internal Med Progress Note Date of Service: Jul 27, 2017. Provider Documentation: SUBJECTIVE: Patient reports itching at night but could not get more topical creams because dosing was for BID prn. Denies chest pain, chest palpitations, or shortness of breath Objective Exam: General: no acute distress Eyes- EOMI ENT- no oral exudates Neck- midline trachea, no JVD Lungs- CTABL, no wheezing Heart- irregularly irregular; heart rate on exam controlled and under 100 beats per minute Abdomen- soft, nontender, + bowel sounds Extremities- excoriations on left upper extremity from wrist to arm is healing, multiple small areas of bruises with erythema and bruises of left upper extremity, left palmar swelling, left wrist still warm to the touch Neuro- alter and oriented x 3, ambulatory on own power 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 Nurses can apply topical steroids to the left elbow and the arm above bicipital groove as well as other affected areas of pruritus including buttock area. Avoid application of topical steroids to face or groin. Topical steroids increased to [id number] prn for itch -Topical Benadryl can be applied to cellulitis area. Topical Benadryl inncreased to [id number] prn for itch. continue IV Benadryl q8h prn for itch. Listed allergies on records and patient Gold leads to Hives Hydroxyzine leads to Edema face/lips/tongue Triamcinolone leads to rash Cozaar [Losartan] leads to Hypotension Penicillins leads to Rash Atrial Fibrillation with Tachycardia -INR therapeutic, continue home dose coumadin of 5 mg daily -not on rate control medications at home, have been monitored on telemetry and heart observed to increase to 120s, metoprolol tartrate 12.5 mg BID has controlled heart rate better, will continue to monitor on telemetry and adjust beta blockers as needed DM -hold home metformin and glipizide, avoid medications to contributes to lactic acidosis -sliding scale insulin as inpatient History of Non Hodgkin Lymphoma, History of ITP, History of Chemotherapy -has WBC of 11 to 7.38 -Hgb 15.2 to 14.4 -Platelet 196 to 153 -continue to monitor cell lines DVT prophylaxis -Coumadin daily Disposition: discharge to home when cellulitis improves and off IV antibiotics. will need follow up to primary care physician and [employer] Vital Signs: Date Time Temp Pulse Resp B/P (MAP) Pulse Ox O2 Delivery O2 Flow Rate FiO2 07/27/17 11:33 36.7 85 18 120/81 (94) 95 Room Air 07/27/17 08:00 Room Air 07/27/17 07:38 36.7 67 19 135/82 (99) 96 Room Air 07/27/17 04:43 36.7 88 20 146/96 (113) 100 07/27/17 04:00 Room Air 07/27/17 00:00 Room Air 07/26/17 23:23 36.5 82 18 111/71 (84) 96 Room Air 07/26/17 19:45 Room Air 07/26/17 19:30 36.4 98 16 134/82 (99) 96 Room Air 07/26/17 16:00 Room Air 07/26/17 15:15 36.3 84 18 145/88 (107) 96 Room Air Lab Results: Results Past 24 Hours Test 07/26/17 16:20 07/26/17 20:19 07/27/17 06:33 07/27/17 07:55 Range/Units Bedside Glucose 146 210 180 70-99 mg/dl White Blood Count 7.38 4.8-10.8 K/uL Red Blood Count 4.81 4.7-6.1 M/uL Hemoglobin 14.6 14.0-18.0 g/dL Hematocrit 41.6 42-52 % Mean Corpuscular Volume 86.5 80-100 fL Mean Corpuscular Hemoglobin 30.4 25-34 pg Mean Corpuscular Hemoglobin Concent 35.1 32-36 g/dl Platelet Count 153 130-400 K/uL Mean Platelet Volume 11.0 7.4-10.4 fL Neutrophils (%) (Auto) 56.8 % Lymphocytes (%) (Auto) 11.1 % Monocytes (%) (Auto) 13.1 % Eosinophils (%) (Auto) 18.2 % Basophils (%) (Auto) 0.4 % Neutrophils # (Auto) 4.19 1.4-6.5 K/uL Lymphocytes # (Auto) 0.82 1.2-3.4 K/uL Monocytes # (Auto) 0.97 0.11-0.59 K/uL Eosinophils # (Auto) 1.34 0-0.5 K/uL Basophils # (Auto) 0.03 0-0.2 K/uL RDW Standard Deviation 42.3 36.4-46.3 fL RDW Coefficient of Variation 13.3 11.5-14.5 % Immature Granulocyte % (Auto) 0.4 % Immature Granulocyte # (Auto) 0.03 0.00-0.02 K/uL Prothrombin Time 28.2 9.0-12.0 SECONDS Prothromb Time International Ratio 2.5 0.9-1.1 Creatinine 1.22 0.60-1.40 mg/dl Est Creatinine Clear Calc Drug Dose 49.7 ml/min Estimated GFR () 67.3 Estimated GFR (Non- 58.0 Test 07/27/17 11:02 Range/Units Bedside Glucose 233 70-99 mg/dl
[2017-07-27] MEDS: WARFARIN SOD 5 MG TAB PO SCH (16:02)
[2017-07-27] MEDS: ASPIRIN 81 MG ECTAB PO SCH (19:50)
[2017-07-27] MEDS ORDERED: NURSING VERBAL MED ORDER ONE (22:00)
[2017-07-27] MEDS ORDERED: EUCERIN CR 120 GM JAR EXT PRN (22:15)
[2017-07-28] VITALS (8 sets, daily range): BP systolic 128–148; BP diastolic 74–95; PULSE 79–96; TEMP 36.4–36.7; O2SAT 93–98
[2017-07-28] MEDS: CLINDAMYCIN IV 600 MG in DEXTROSE 5% 50ML 50 ML IV SCH ×3 (03:27→21:23)
[2017-07-28 07:00] LABS: BASO % 0.3 %; BASO ABS # 0.02 K/uL (0-0.2); COMPLETE YES; EOS % 17.4 %; HEMATOCRIT 39.6 % (42-52); IG% 0.3 %; LYMPH % 12.9 %; LYMPH ABS # 0.94 K/uL (1.2-3.4); MEAN CELL VOLUME 86.3 fL (80-100); MEAN CORPUSCULAR HEMOGLOBIN 29.4 pg (25-34); MEAN CORPUSCULAR HGB CONC 34.1 g/dl (32-36); MONO % 10.6 %; NEUT % 58.5 %; PLATELET COUNT 157 K/uL (130-400); RED BLOOD COUNT 4.59 M/uL (4.7-6.1); WHITE BLOOD COUNT 7.29 K/uL (4.8-10.8)
[2017-07-28 07:31] LABS: BUN/CREATININE RATIO 6.6 (10-20); CALCIUM 7.9 mg/dl (8.5-10.1); CREATININE 1.09 mg/dl (0.60-1.40); POTASSIUM 3.8 mmol/L (3.5-5.1)
[2017-07-28 07:34] LABS: ALB/GLOB RATIO 1.1 (0.9-2)
[2017-07-28] MEDS: ATORVASTATIN 40 MG TAB PO SCH (07:56)
[2017-07-28] MEDS: METOPROLOL TARTRATE 25 MG TAB PO SCH ×2 (07:57→21:40)
[2017-07-28] MEDS: INSULIN ASPART 100 UNITS/ML 3 ML PEN SC SCH ×4 (08:03→21:27)
[2017-07-28] MEDS: DiphenhydrAMINE HCL 50 MG/ML VIAL IV PRN ×2 (09:03→17:25)
[2017-07-28] MEDS: SODIUM CHLORIDE 0.9% 1000ML 1,000 ML IV SCH (11:50)
[2017-07-28] MEDS: BETAMETHASONE DIP AUG (DIPROLENE) 0.05% CR 15 GM TUBE EXT PRN (17:19)
[2017-07-28] MEDS: WARFARIN SOD 5 MG TAB PO SCH (17:31)
--- NOTE | 2017-07-28 18:28 | Progress Note ---
Internal Med Progress Note Date of Service: Jul 28, 2017. Provider Documentation: SUBJECTIVE: Patient reports itching improved and less extremity swelling. Denies chest pain , chest palpitations, or shortness of breath Objective Exam: General: no acute distress Eyes- EOMI ENT- no oral exudates Neck- midline trachea, no JVD Lungs- CTABL, no wheezing Heart- irregularly irregular; heart rate on exam controlled and under 100 beats per minute Abdomen- soft, nontender, + bowel sounds Extremities- excoriations on left upper extremity from wrist to arm is healing, multiple small areas of bruises with erythema and bruises of left upper extremity, left palmar swelling reduced Neuro- alter and oriented x 3, ambulatory on own power 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 Nurses can apply topical steroids to the left elbow and the arm above bicipital groove as well as other affected areas of pruritus including buttock area. Avoid application of topical steroids to face or groin. Topical steroids [id number] prn for itch -Topical Benadryl can be applied to cellulitis area. Topical Benadryl [id number] prn for itch. IV Benadryl q8h prn for itch. Listed allergies on records and patient Gold leads to Hives Hydroxyzine leads to Edema face/lips/tongue Triamcinolone leads to rash Cozaar [Losartan] leads to Hypotension Penicillins leads to Rash Atrial Fibrillation with Tachycardia -INR therapeutic, continue home dose coumadin of 5 mg daily -not on rate control medications at home, have been monitored on telemetry and heart observed to increase to 120s, metoprolol tartrate 12.5 mg BID has controlled heart rate and now off telemetry DM -hold home metformin and glipizide, avoid medications to contributes to lactic acidosis -sliding scale insulin as inpatient History of Non Hodgkin Lymphoma, History of ITP, History of Chemotherapy -has WBC of 11 to 7.29 -Hgb 15.2 to 13.5 likely due to blood draws -Platelet 196 to 157 -continue to monitor cell lines DVT prophylaxis -Coumadin daily Disposition: discharge to home when cellulitis improves and off IV antibiotics. will need to follow up appointments 08/01/2017 9:00 AM Noble King DO General Internal Medicine [facility] 08/02/2017 8:30 AM Zainab Lee MD Dermatology [facility] Vital Signs: Date Time Temp Pulse Resp B/P (MAP) Pulse Ox O2 Delivery O2 Flow Rate FiO2 07/28/17 16:00 Room Air 07/28/17 13:06 36.7 94 18 147/95 (112) 97 Room Air 07/28/17 12:10 36.6 84 19 97 07/28/17 11:32 36.6 84 19 145/78 (100) 97 Room Air 07/28/17 08:00 Room Air 07/28/17 07:58 36.5 96 19 137/87 (104) 93 Room Air 07/28/17 04:14 97 Room Air 07/28/17 03:56 36.4 87 18 128/74 (92) 96 Room Air 07/28/17 00:14 97 Room Air 07/27/17 23:18 36.8 95 18 133/85 (101) 95 Room Air 07/27/17 20:00 97 Room Air 07/27/17 19:43 36.5 94 18 146/95 (112) 97 Room Air Lab Results: Results Past 24 Hours Test 07/27/17 20:17 07/28/17 06:34 07/28/17 06:44 07/28/17 11:04 Range/Units Bedside Glucose 187 196 179 70-99 mg/dl White Blood Count 7.29 4.8-10.8 K/uL Red Blood Count 4.59 4.7-6.1 M/uL Hemoglobin 13.5 14.0-18.0 g/dL Hematocrit 39.6 42-52 % Mean Corpuscular Volume 86.3 80-100 fL Mean Corpuscular Hemoglobin 29.4 25-34 pg Mean Corpuscular Hemoglobin Concent 34.1 32-36 g/dl Platelet Count 157 130-400 K/uL Mean Platelet Volume 11.0 7.4-10.4 fL Neutrophils (%) (Auto) 58.5 % Lymphocytes (%) (Auto) 12.9 % Monocytes (%) (Auto) 10.6 % Eosinophils (%) (Auto) 17.4 % Basophils (%) (Auto) 0.3 % Neutrophils # (Auto) 4.27 1.4-6.5 K/uL Lymphocytes # (Auto) 0.94 1.2-3.4 K/uL Monocytes # (Auto) 0.77 0.11-0.59 K/uL Eosinophils # (Auto) 1.27 0-0.5 K/uL Basophils # (Auto) 0.02 0-0.2 K/uL RDW Standard Deviation 42.5 36.4-46.3 fL RDW Coefficient of Variation 13.6 11.5-14.5 % Immature Granulocyte % (Auto) 0.3 % Immature Granulocyte # (Auto) 0.02 0.00-0.02 K/uL Sodium Level 140 136-145 mmol/L Potassium Level 3.8 3.5-5.1 mmol/L Chloride Level 107 98-107 mmol/L Carbon Dioxide Level 27 21-32 mmol/L Anion Gap 6.0 3-11 mmol/L Blood Urea Nitrogen 7 7-18 mg/dl Creatinine 1.09 0.60-1.40 mg/dl Est Creatinine Clear Calc Drug Dose 60.9 ml/min Estimated GFR () 77.1 Estimated GFR (Non- 66.5 BUN/Creatinine Ratio 6.6 10-20 Random Glucose 212 70-99 mg/dl Calcium Level 7.9 8.5-10.1 mg/dl Total Bilirubin 0.5 0.2-1 mg/dl Aspartate Amino Transf (AST/SGOT) 15 15-37 U/L Alanine Aminotransferase (ALT/SGPT) 29 12-78 U/L Alkaline Phosphatase 71 45-117 U/L Total Protein 5.6 6.4-8.2 gm/dl Albumin 2.9 3.4-5.0 gm/dl Globulin 2.7 2.5-4.0 gm/dl Albumin/Globulin Ratio 1.1 0.9-2 Test 07/28/17 16:35 Range/Units Bedside Glucose 157 70-99 mg/dl
[2017-07-28] MEDS: DiphenhydrAMINE 2%/ZINC 0.1% CREAM 28GM TUBE EXT PRN (18:37)
[2017-07-28] MEDS: ASPIRIN 81 MG ECTAB PO SCH (21:41)
[2017-07-29] MEDS: BETAMETHASONE DIP AUG (DIPROLENE) 0.05% CR 15 GM TUBE EXT PRN ×2 (01:38→09:24)
[2017-07-29] MEDS: DiphenhydrAMINE 2%/ZINC 0.1% CREAM 28GM TUBE EXT PRN ×2 (01:38→09:24)
[2017-07-29] MEDS: SODIUM CHLORIDE 0.9% 1000ML 1,000 ML IV SCH ×2 (01:43→13:56)
[2017-07-29] MEDS: CLINDAMYCIN IV 600 MG in DEXTROSE 5% 50ML 50 ML IV SCH ×2 (04:07→12:27)
[2017-07-29 07:06] LABS: INR 2.2 (0.9-1.1); PROTHROMBIN TIME (PATIENT) 24.5 SECONDS (9.0-12.0)
[2017-07-29] MEDS: DiphenhydrAMINE HCL 50 MG/ML VIAL IV PRN (07:18)
[2017-07-29] MEDS: ATORVASTATIN 40 MG TAB PO SCH (07:21)
[2017-07-29] MEDS: ACETAMINOPHEN 325 MG TAB PO PRN (07:23)
[2017-07-29 07:30] LABS: CREATININE 1.09 mg/dl (0.60-1.40)
[2017-07-29] MEDS: METOPROLOL TARTRATE 25 MG TAB PO SCH (08:03)
[2017-07-29] MEDS: INSULIN ASPART 100 UNITS/ML 3 ML PEN SC SCH ×2 (08:09→12:32)
[2017-07-29 08:13] VITALS: BP 158/94; PULSE 51; TEMP 36.5; O2SAT 97
--- NOTE | 2017-07-29 12:38 | Progress Note ---
Internal Med Progress Note Date of Service: Jul 29, 2017. Provider Documentation: SUBJECTIVE: Patient reports itching improved and less extremity swelling. Denies chest pain , chest palpitations, or shortness of breath Objective Exam: General: no acute distress Eyes- EOMI ENT- no oral exudates Neck- midline trachea, no JVD Lungs- CTABL, no wheezing Heart- irregularly irregular; heart rate on exam controlled and under 100 beats per minute Abdomen- soft, nontender, + bowel sounds Extremities- excoriations on left upper extremity from wrist to arm is healing, multiple small areas of bruises with erythema and bruises of left upper extremity, left hand minimally swollen, and left arm swelling erythema appears resolved Neuro- alter and oriented x 3, ambulatory on own power 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 -left upper extremity ultrasound without DVT or abscess -given IV clindamycin and IV Vancomycin in the ED on 07/24/17 -blood culture sent on 07/24/17 no growth to date, IV vancomycin stopped on as no evidence of MRSA -IV clindamycin for skin infection coverage stopped on 07/29/17 as swelling and erythema now minimal -Would stop antibiotics completely for now, discharge home with follow up to primary care doctor whether patient needs to continue further antibiotic therapy -can continue topical steroids on areas away from site of treated left arm cellulitis, can use topical antihistamine on areas involved with cellulitis, patient can follow up with dermatology outpatient on rash treatments Atrial Fibrillation with Tachycardia -continue home dose coumadin of 5 mg daily -not on rate control medications at home, have been monitored on telemetry and heart observed to increase to 120s, metoprolol tartrate 12.5 mg BID has controlled heart rate and now off telemetry -prescription of metoprolol tartrate 12.5 mg BID to be given to patient on discharge DM -continue home dosed medication of metformin and glipizide on discharge History of Non Hodgkin Lymphoma, History of ITP, History of Chemotherapy: stable cell counts Disposition: discharge to home will need to follow up appointments 08/01/2017 9:00 AM Noble King DO General Internal Medicine [facility] 08/02/2017 8:30 AM Zainab Lee MD Dermatology [facility] Vital Signs: Date Time Temp Pulse Resp B/P (MAP) Pulse Ox O2 Delivery O2 Flow Rate FiO2 07/29/17 08:13 36.5 51 16 158/94 (115) 97 07/29/17 08:00 Room Air 07/29/17 00:00 Room Air 07/28/17 22:54 36.6 79 19 148/87 (107) 98 Room Air 07/28/17 16:00 Room Air 07/28/17 13:06 36.7 94 18 147/95 (112) 97 Room Air Lab Results: Results Past 24 Hours Test 07/28/17 16:35 07/28/17 21:08 07/29/17 06:25 07/29/17 07:17 Range/Units Bedside Glucose 157 199 183 70-99 mg/dl Prothrombin Time 24.5 9.0-12.0 SECONDS Prothromb Time International Ratio 2.2 0.9-1.1 Creatinine 1.09 0.60-1.40 mg/dl Est Creatinine Clear Calc Drug Dose 60.9 ml/min Estimated GFR () 77.1 Estimated GFR (Non- 66.5 Test 07/29/17 11:51 Range/Units Bedside Glucose 233 70-99 mg/dl
[2017-07-29] MEDS ORDERED: LPR25 PO (12:41)
[2017-07-29] MEDS ORDERED: DIPH2CRE16 EXT (12:41)
--- NOTE | 2017-07-29 12:45 | Discharge Instructions ---
Discharge Instructions Date of Service Jul 29, 2017. Admission Reason for Admission: Diabetes Mellitus Type 2 In Nonobese, Rash, Hx.. Discharge Discharge Diagnosis / Problem: left arm cellulitis, dermatitis herpetiformis, atrial fibrillation Discharge Goals Goal(s): Decrease discomfort, Improve disease control Activity Recommendations Activity Limitations: resume your previous activity . 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 -left upper extremity ultrasound without DVT or abscess -given IV clindamycin and IV Vancomycin in the ED on 07/24/17 -blood culture sent on 07/24/17 no growth to date, IV vancomycin stopped on as no evidence of MRSA -IV clindamycin for skin infection coverage stopped on 07/29/17 as swelling and erythema now minimal -Would stop antibiotics completely for now, discharge home with follow up to primary care doctor whether patient needs to continue further antibiotic therapy -can continue topical steroids on areas away from site of treated left arm cellulitis, can use topical antihistamine on areas involved with cellulitis, patient can follow up with dermatology outpatient on rash treatments Atrial Fibrillation with Tachycardia -continue home dose coumadin of 5 mg daily -not on rate control medications at home, have been monitored on telemetry and heart observed to increase to 120s, metoprolol tartrate 12.5 mg BID has controlled heart rate and now off telemetry -prescription of metoprolol tartrate 12.5 mg BID to be given to patient on discharge DM -continue home dosed medication of metformin and glipizide on discharge History of Non Hodgkin Lymphoma, History of ITP, History of Chemotherapy: stable cell counts Disposition: discharge to home will need to follow up appointments 08/01/2017 9:00 AM Noble King DO General Internal Medicine [facility] 08/02/2017 8:30 AM Zainab Lee MD Dermatology [facility] Current Hospital Diet Patient's current hospital diet: Diabetes Type 2 Diet, Gluten Free Diet Discharge Diet Recommended Diet: Diabetes Type 2 Diet (gluten free diet) Pending Studies Studies pending at discharge: no Laboratory Results 07/28/17 06:34 Red Blood Count 4.59, Mean Corpuscular Volume 86.3, Mean Corpuscular Hemoglobin 29.4, Mean Corpuscular Hemoglobin Concent 34.1, Mean Platelet Volume 11.0, Neutrophils (%) (Auto) 58.5, Lymphocytes (%) (Auto) 12.9, Monocytes (%) (Auto) 10.6, Eosinophils (%) (Auto) 17.4, Basophils (%) (Auto) 0.3, Neutrophils # (Auto ) 4.27, Lymphocytes # (Auto) 0.94, Monocytes # (Auto) 0.77, Eosinophils # (Auto ) 1.27, Basophils # (Auto) 0.02 07/28/17 06:34 07/29/17 06:25 Test 07/24/17 10:05 07/24/17 10:13 07/28/17 06:34 07/29/17 06:25 Activated Partial Thromboplast Time 40.8 SECONDS (21.0-31.0) Partial Thromboplastin Ratio 1.6 Bedside Lactic Acid Venous 2.31 mmol/L (0.90-1.70) White Blood Count 7.29 K/uL (4.8-10.8) Red Blood Count 4.59 M/uL (4.7-6.1) Hemoglobin 13.5 g/dL (14.0-18.0) Hematocrit 39.6 % (42-52) Mean Corpuscular Volume 86.3 fL (80-100) Mean Corpuscular Hemoglobin 29.4 pg (25-34) Mean Corpuscular Hemoglobin Concent 34.1 g/dl (32-36) Platelet Count 157 K/uL (130-400) Mean Platelet Volume 11.0 fL (7.4-10.4) Neutrophils (%) (Auto) 58.5 % Lymphocytes (%) (Auto) 12.9 % Monocytes (%) (Auto) 10.6 % Eosinophils (%) (Auto) 17.4 % Basophils (%) (Auto) 0.3 % Neutrophils # (Auto) 4.27 K/uL (1.4-6.5) Lymphocytes # (Auto) 0.94 K/uL (1.2-3.4) Monocytes # (Auto) 0.77 K/uL (0.11-0.59) Eosinophils # (Auto) 1.27 K/uL (0-0.5) Basophils # (Auto) 0.02 K/uL (0-0.2) RDW Standard Deviation 42.5 fL (36.4-46.3) RDW Coefficient of Variation 13.6 % (11.5-14.5) Immature Granulocyte % (Auto) 0.3 % Immature Granulocyte # (Auto) 0.02 K/uL (0.00-0.02) Anion Gap 6.0 mmol/L (3-11) BUN/Creatinine Ratio 6.6 (10-20) Calcium Level 7.9 mg/dl (8.5-10.1) Total Bilirubin 0.5 mg/dl (0.2-1) Aspartate Amino Transf (AST/SGOT) 15 U/L (15-37) Alanine Aminotransferase (ALT/SGPT) 29 U/L (12-78) Alkaline Phosphatase 71 U/L (45-117) Total Protein 5.6 gm/dl (6.4-8.2) Albumin 2.9 gm/dl (3.4-5.0) Globulin 2.7 gm/dl (2.5-4.0) Albumin/Globulin Ratio 1.1 (0.9-2) Prothrombin Time 24.5 SECONDS (9.0-12.0) Prothromb Time International Ratio 2.2 (0.9-1.1) Est Creatinine Clear Calc Drug Dose 60.9 ml/min Estimated GFR () 77.1 Estimated GFR (Non- 66.5 Test 07/29/17 11:51 Bedside Glucose 233 mg/dl (70-99) Date/Time Source Procedure Growth Status 07/24/17 10:05 Blood Blood Culture - Preliminary NO GROWTH TO DATE. Resulted Medical Emergencies . Who to Call and When: Medical Emergencies: If at any time you feel your situation is an emergency, please call 911 immediately. . Non-Emergent Contact Non-Emergency issues call your: Primary Care Provider Call Non-Emergent contact if: you have a fever . . "Provider Documentation" section prepared by Mayco French. . VTE Core Measure Inpt VTE Proph given/why not?: Warfarin (Coumadin)
--- NOTE | 2017-07-29 12:48 | Discharge Summary ---
Discharge Summary Date of Service Jul 29, 2017. Discharge Summary Admission Date: Jul 24, 2017 at 12:19 Discharge Date: Jul 29, 2017 Discharge Disposition: Home Principal Diagnosis: left arm cellulitis, atrial fibrillation, dermatitis herpetiformis Consultations: dermatology Medication Reconciliation New Medications: Diphenhydramine-Zinc Acetate (Sm Anti-Itch Extra Streng) 1 Cre Cre 1 APPLN EXT Q8 PRN for ITCHING for 30 Days, #1 UNIT 1 Refill Metoprolol Tartrate (Lopressor) 25 Mg Tab 12.5 MG PO BID for 30 Days, #30 TAB Continued Medications: Albuterol Sulfate (Proventil Hfa) 108 Mcg/Act Aer 2 PUFFS INH Q6 PRN for Wheezing Artificial Tear Solution (Just Tears Eye Drops) 1 Babs Babs 1 DROP OPB BID PRN for PRN Aspirin (Aspirin Ec) 81 Mg Tab 81 MG PO QPM Atorvastatin (Lipitor) 40 Mg Tab 40 MG PO DAILY, TAB Azelastine Hcl (Astelin Nasal Williamson) 200 Sprays/30 Ml Williamson 1-2 SPRAYS NA BID, BTL Betamethasone Dip Aug 0.05% (Diprolene 0.05%) 0.05 % Oin 1 APPLN TOP BID, % Cyanocobalamin (Vitamin B-12) 1,000 Mcg Tab 1000 MCG PO DAILY, TAB Docusate Sodium (Docusate Sodium) 100 Mg Cap 100 MG PO DAILY for 30 Days, #30 CAP Fluticasone Propionate (Fluticasone Propionate) 120 Sprays/6000 Mcg Inha 2 SPRAYS EMANI DAILY Folic Acid (Folvite) 1 Mg Tab 1 MG PO DAILY, TAB Glipizide (Glucotrol) 10 Mg Tab 10 MG PO BID, TAB Metformin Hcl (Glucophage) 1,000 Mg Tab 1000 MG PO BID, TAB Multivitamins/Minerals (Mvi With Minerals) Tab 1 TAB PO QAM, TAB Omeprazole (Prilosec) 20 Mg Cap 20 MG PO QAM, CAP Tacrolimus (Topical) (Tacrolimus) 0.1 % Oin 1 APPLN TOP BID PRN for ARMS & LEGS Warfarin Sodium (Coumadin) 5 Mg Tab 5 MG PO QPM, TAB Discontinued Medications: Prednisone (Prednisone) 20 Mg Tab 20 MG PO DAILY, TAB Admission Information HPI (per Admitting provider): 72 year old M with history of autoimmune disorders including pruritic rash which has been attributed as outpatient to celiac disease and gluten sensitivity. Patient has been scratching left wrist and left elbow and developed skin erythema and swelling of left hand with extension of involvement to left arm/left elbow area. This occurred a week ago Patient then on outpatient antibiotics. However without improvement of symptoms. Patient was given IV clindamycin and IV Vancomycin in the ED, Denies fevers at homes. Patient has history of atrial fibrillation without being on rate control medications although reports that in the past he was on amiodarone but has been off the medication due to drug intolerance vs side effects. On exam patient has irregular heart rate between 100 to 110 beats per minute. Patient denies chest pain or shortness of breath. Patient only on coumadin 5 mg daily for anticoagulation for atrial fibrillation. There are areas of intermittent bruises of his extremities. In addition reports history of Non Hodgkin Lymphoma and was on chemotherapy but reports having been in remission for 7 years. Has history of ITP for which patient last reports of receiving chemotherapy in January 2017. 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 Found to have lactic acid level of 2.31in ED presentation. Have discussed with patient and patient's daughter that the plan is to hold home diabetes medication for now and give sliding scale insulin with IV fluids and IV antibiotics for left upper extremity cellulitis, imaging of left upper extremity, and monitor the atrial fibrillation on telemetry as check the INR and adjust coumadin dosing. Physical Exam (per Admitting): General Appearance: no apparent distress Head: normocephalic, atraumatic Eyes: normal inspection, EOMI ENT: hearing grossly normal, pharynx normal Neck: supple, no JVD, trachea midline Respiratory/Chest: chest non-tender, lungs clear, normal breath sounds, no respiratory distress, no accessory muscle use Cardiovascular: + tachycardia (heart rate between 100 to 100 beats per minute), + abnormal rhythm (irregular) Abdomen/GI: normal bowel sounds, non tender, soft Back: no muscle spasm Extremities/Musculoskelatal: no calf tenderness, no pedal edema, + swelling (left hand swelling with erythema to AC area of left arm) Neurologic/Psych: no motor/sensory deficits, alert, normal mood/affect, oriented x 3 Skin: + rash (rash of left arm), + pertinent finding (intermittent areas of brusing of extremities) Hospital Course Left upper extremity Cellulitis with History of Rash (as 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 -left upper extremity ultrasound without DVT or abscess -given IV clindamycin and IV Vancomycin in the ED on 07/24/17 -blood culture sent on 07/24/17 no growth to date, IV vancomycin stopped on as no evidence of MRSA -IV clindamycin for skin infection coverage stopped on 07/29/17 as swelling and erythema now minimal -Would stop antibiotics completely for now, discharge home with follow up to primary care doctor whether patient needs to continue further antibiotic therapy -can continue topical steroids on areas away from site of treated left arm cellulitis, can use topical antihistamine on areas involved with cellulitis, patient can follow up with dermatology outpatient on rash treatments Atrial Fibrillation with Tachycardia -continue home dose coumadin of 5 mg daily -not on rate control medications at home, have been monitored on telemetry and heart observed to increase to 120s, metoprolol tartrate 12.5 mg BID has controlled heart rate and now off telemetry -prescription of metoprolol tartrate 12.5 mg BID to be given to patient on discharge DM -continue home dosed medication of metformin and glipizide on discharge History of Non Hodgkin Lymphoma, History of ITP, History of Chemotherapy: stable cell counts Disposition: discharge to home will need to follow up appointments 08/01/2017 9:00 AM Noble King DO General Internal Medicine [facility] 08/02/2017 8:30 AM Zainab Lee MD Dermatology [facility] Total time spent on discharge = This includes examination of the patient, discharge planning, medication reconciliation, and communication with other providers. Discharge Instructions see above
[2017-07-29 13:01] VITALS: BP 158/94; PULSE 51; TEMP 36.5; O2SAT 97
== END 2017-07-29 14:58 | disposition home or self-care (01) | DRG 603 ==
LOC: C.EDB 09:37 → C.2T 12:19 → ENRESERV 12:34 → EDBEDREQSVC 07-28 11:34 → ENRESERV 07-28 12:01 → C.MS2W 07-28 12:50
PROVIDERS: ADMIT Hospitalist; ATTEND Hospitalist
DX: L03.114 Cellulitis of left upper limb (principal); K90.0 Celiac disease; L13.0 Dermatitis herpetiformis; I48.91 Unspecified atrial fibrillation; E11.9 Type 2 diabetes mellitus without complications; Z86.2 Personal history of diseases of the blood and blood-forming organs and certain disorders involving the immune mechanism; Z85.72 Personal history of non-Hodgkin lymphomas; Z92.21 Personal history of antineoplastic chemotherapy; Z87.891 Personal history of nicotine dependence; Z79.01 Long term (current) use of anticoagulants; Z79.51 Long term (current) use of inhaled steroids; Z79.52 Long term (current) use of systemic steroids; Z79.82 Long term (current) use of aspirin; Z79.84 Long term (current) use of oral hypoglycemic drugs; Z79.899 Other long term (current) drug therapy; Z88.0 Allergy status to penicillin; Z88.8 Allergy status to other drugs, medicaments and biological substances; Z80.3 Family history of malignant neoplasm of breast; Z80.41 Family history of malignant neoplasm of ovary; Z82.49 Family history of ischemic heart disease and other diseases of the circulatory system; Z82.3 Family history of stroke; Z83.3 Family history of diabetes mellitus

== ENCOUNTER 2017-09-23 00:23 | Observation (INO) | payer OTHER ==
[2017-09-23] VITALS (15 sets, daily range): BP systolic 132–180; BP diastolic 77–94; PULSE 54–65; TEMP 36.4–36.8; O2SAT 92–96; Ht 170.2 cm; Wt 73.4 kg
[~2017-09-23] VITALS: Ht 170.2 cm; Wt 73.4 kg
[~2017-09-23 00:23] MED LIST changes: +ALBUAER INH; +ASTN; -ATOR10TA88 PO; +CYAN10005 PO; +DIPH2CRE16 EXT; +DOCU100C31 PO; +FOLI1TAB8 PO; -HYDR25CA PO; +LPR25 PO; +LPT/40 PO; -NRV/5 PO; -PRED20TA PO
--- NOTE | 2017-09-23 00:44 | EMERGENCY ROOM VISIT NOTE ---
History Report prepared by Wei: Carlyn Waite Under the Supervision of: Dr. Raphael Bhatia M.D. First contact with patient: 00:30 Chief Complaint: CARDIAC ASSESSMENT Stated Complaint: CHEST FEELS HEAVY WHEN LAYING DOWN,LFT SHOULDER History of Present Illness The patient is a 72 year old male who presents to the Emergency Room with complaints of intermittent left sided chest pain beginning a day ago. The patient states that his pain worsens with laying flat. His pain does not worsen with walking. He notes some shortness of breath but denies any abdominal pain, nausea, vomiting, or increased swelling in his legs. He denies any recent falls , injuries, or increased activity. Presently, he denies any chest pain. The patient has a history of stents. The patient follows up with Dr. Jimenez- Cardiology and had EKG on , 5 days ago, which was unremarkable. The patient takes aspirin and Coumadin for atrial fibrillation. He reports his last Coumadin level was 3.2. Source of History: patient Onset: a day ago Position: chest (left) Timing: intermittent Modifying Factors (Worsening): other (laying flat) Associated Symptoms: + chest pain, + SOB, No nausea, No vomiting, No abdominal pain Review of Systems See HPI for pertinent positives & negatives. A total of 10 systems reviewed and were otherwise negative. Past Medical & Surgical Medical Problems: (1) Clostridium difficile colitis (2) Diabetes mellitus type 2 in nonobese (3) Diverticular disease of colon (4) Diverticulitis (5) Dyslipidemia (6) Essential hypertension (7) History of adenomatous polyp of colon (8) History of non-Hodgkin's lymphoma (9) Paroxysmal atrial fibrillation Surgical Problems: (1) Status post cholecystectomy (2) Status post vasectomy Family History Breast cancer SISTER Diabetes mellitus BROTHER SISTER FH: [place] (myocardial infarction) FATHER BROTHER FH: heart disease FATHER BROTHER Ovarian cancer SISTER Stroke MOTHER Social History Smoking Status: Never Smoker Alcohol Use: none Marital Status: Housing Status: lives alone Occupation Status: other Current/Historical Medications Scheduled Amiodarone HCl (Amiodarone HCl), 100 MG PO BIDM Aspirin (Aspirin Ec), 81 MG PO QPM Atorvastatin (Lipitor), 40 MG PO DAILY Cyanocobalamin (Vitamin B-12), 1,000 MCG PO DAILY Dapsone (Dapsone), 25 MG PO DAILY Docusate Sodium (Docusate Sodium), 100 MG PO DAILY Fluticasone Propionate (Fluticasone Propionate), 2 SPRAYS EMANI DAILY Folic Acid (Folvite), 1 MG PO DAILY Glipizide (Glucotrol), 10 MG PO BIDM Metformin Hcl (Glucophage), 1,000 MG PO AMHS Metformin Hcl (Glucophage), 500 MG PO QDD Metoprolol Tartrate (Lopressor), 25 MG PO BID Multivitamins/Minerals (Mvi With Minerals), 1 TAB PO QAM Omeprazole (Prilosec), 20 MG PO QAM Warfarin Sodium (Coumadin), 5 MG PO 6XWK AT QPM Warfarin Sodium (Coumadin), 7.5 MG PO WK ON WEDNESDAYS Scheduled PRN Albuterol Sulfate (Proventil Hfa), 2 PUFFS INH Q6 PRN for Wheezing Artificial Tear Solution (Just Tears Eye Drops), 1 DROP OPB BID PRN for PRN Diphenhydramine-Zinc Acetate (Diphenhydramine Hcl/Zinc), 1 APPLN TD Q8 PRN for Itching Allergies Coded Allergies: Gold (Verified Allergy, Unknown, hives, 09/23/17) Losartan (Verified Allergy, Unknown, hypotension, 09/23/17) Penicillins (Verified Allergy, Unknown, RASH, 09/23/17) Triamcinolone (Verified Allergy, Unknown, "pustules/redness", 09/23/17) Physical Exam Vital Signs Date Time Temp Pulse Resp B/P (MAP) Pulse Ox O2 Delivery O2 Flow Rate FiO2 09/23/17 02:22 57 16 09/23/17 02:07 67 25 163/77 09/23/17 02:02 09/23/17 01:55 135/80 09/23/17 01:52 63 19 09/23/17 01:37 59 18 140/84 09/23/17 01:37 61 18 140/84 93 Room Air 09/23/17 01:08 58 18 191/91 96 Room Air 09/23/17 00:45 97 Room Air 09/23/17 00:39 62 09/23/17 00:27 36.8 61 18 184/87 97 Room Air Physical Exam GENERAL: Patient is well appearing and in no acute distress. HEENT: No acute trauma, normocephalic atraumatic, mucous membranes moist, no nasal congestion, no scleral icterus. NECK: No stridor, no adenopathy, no meningismus, trachea is midline. LUNGS: No dyspnea. Clear to auscultation and equal bilaterally. No wheeze, no rhonchi. HEART: Regular rate and rhythm. No murmurs, rubs, gallops appreciated. ABDOMEN: Soft, nontender, bowel sounds positive, no masses appreciated, no peritonitis. BACK: No midline tenderness, no CVA tenderness EXTREMITIES: Normal motion all extremities, no cyanosis, no edema. NEUROLOGIC: Alert and oriented, no acute motor or sensory deficits, no focal weakness, cranial nerves grossly intact. SKIN: No rash, no jaundice, no diaphoresis. Medical Decision & Procedures ER Provider Diagnostic Interpretation: X ray results are stated below per my interpretation: Chest: 1 view: No infiltrate, no effusion, normal cardiac border. Similar chest X-ray from March 2017. Laboratory Results 09/23/17 00:38 Red Blood Count 5.01, Mean Corpuscular Volume 86.8, Mean Corpuscular Hemoglobin 30.1, Mean Corpuscular Hemoglobin Concent 34.7, Mean Platelet Volume 11.7, Neutrophils (%) (Auto) 59.9, Lymphocytes (%) (Auto) 17.1, Monocytes (%) (Auto) 13.9, Eosinophils (%) (Auto) 8.1, Basophils (%) (Auto) 0.5, Neutrophils # (Auto ) 5.17, Lymphocytes # (Auto) 1.47, Monocytes # (Auto) 1.20, Eosinophils # (Auto ) 0.70, Basophils # (Auto) 0.04 09/23/17 00:38 Test 09/23/17 00:38 White Blood Count 8.62 K/uL (4.8-10.8) Red Blood Count 5.01 M/uL (4.7-6.1) Hemoglobin 15.1 g/dL (14.0-18.0) Hematocrit 43.5 % (42-52) Mean Corpuscular Volume 86.8 fL (80-100) Mean Corpuscular Hemoglobin 30.1 pg (25-34) Mean Corpuscular Hemoglobin Concent 34.7 g/dl (32-36) Platelet Count 203 K/uL (130-400) Mean Platelet Volume 11.7 fL (7.4-10.4) Neutrophils (%) (Auto) 59.9 % Lymphocytes (%) (Auto) 17.1 % Monocytes (%) (Auto) 13.9 % Eosinophils (%) (Auto) 8.1 % Basophils (%) (Auto) 0.5 % Neutrophils # (Auto) 5.17 K/uL (1.4-6.5) Lymphocytes # (Auto) 1.47 K/uL (1.2-3.4) Monocytes # (Auto) 1.20 K/uL (0.11-0.59) Eosinophils # (Auto) 0.70 K/uL (0-0.5) Basophils # (Auto) 0.04 K/uL (0-0.2) RDW Standard Deviation 44.1 fL (36.4-46.3) RDW Coefficient of Variation 13.9 % (11.5-14.5) Immature Granulocyte % (Auto) 0.5 % Immature Granulocyte # (Auto) 0.04 K/uL (0.00-0.02) Prothrombin Time 26.4 SECONDS (9.0-12.0) Prothromb Time International Ratio 2.6 (0.9-1.1) Anion Gap 6.0 mmol/L (3-11) Est Creatinine Clear Calc Drug Dose 53.7 ml/min Estimated GFR () 66.0 Estimated GFR (Non- 56.9 BUN/Creatinine Ratio 9.2 (10-20) Calcium Level 8.8 mg/dl (8.5-10.1) Magnesium Level 1.7 mg/dl (1.8-2.4) Total Bilirubin 1.0 mg/dl (0.2-1) Direct Bilirubin 0.2 mg/dl (0-0.2) Aspartate Amino Transf (AST/SGOT) 18 U/L (15-37) Alanine Aminotransferase (ALT/SGPT) 28 U/L (12-78) Alkaline Phosphatase 78 U/L (45-117) Total Creatine Kinase 67 U/L (39-308) Creatine Kinase MB 0.7 ng/ml (0.5-3.6) Creatine Kinase MB Ratio 1.0 (0-3.0) Troponin I < 0.015 ng/ml (0-0.045) Pro-B-Type Natriuretic Peptide 758 pg/ml (0-900) Total Protein 7.1 gm/dl (6.4-8.2) Albumin 3.8 gm/dl (3.4-5.0) Lipase 103 U/L (73-393) Laboratory results as reviewed by me. Medications Administered Medications (Trade) Dose Ordered Sig/Pollo Route Start Time Stop Time Status Last Admin Dose Admin Nitroglycerin (Nitrostat Tab) 0.4 mg NOW STAT SL 09/23/17 01:26 09/23/17 01:28 DC 09/23/17 01:33 0.4 MG ECG Indication: chest pain Rate (beats per minute): 61 Rhythm: normal sinus Findings: no acute ischemic change, no ectopy Change: Repeat EKG: sinus bradycardia, 57 bpm, similar morphology to previous, no ectopy , no ischemia. ED Course 0031: The patient was evaluated in room B12B. A complete history and physical exam was performed. 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 Asked nursing for repeat EKG. 0126: Ordered Nitroglycerin 0.4 mg SL. 0129: ordered Nitroglycerin 1.4 mg .ROUTE. 0137: The patient's chest pain is now gone. Blood pressure is 140 systolic. 0139: Discussed the patient's case with Dr. Ball. The patient will be evaluated for further treatment and disposition. Medical Decision Differential: Cardiac Ischemia (STEMI, NSTEMI, Unstable Angina, etc), Aortic Dissection, Arrhythmia, Pulmonary Embolism, Pneumonia, Pneumothorax, MSK, Infectious, Pericarditis/Myocarditis, Esophageal Rupture, Gastrointestinal, amongst other pathologies entertained. 72 yr old male with history of CAD and paroxysmal Afib on Coumadin arrives for intermittent left chest pressure. EKG unremarkable, labs ok. Developed CP in setting of increasing BP while in ED though EKG unremarkable. Resolved with [facility]. Given history will need to come in for cardiac rule out and monitoring. Not consistent with PE/Dissection. Stable stable without arrhythmia while in ED. Medication Reconcilliation Current Medication List: was personally reviewed by me Blood Pressure Screening Patient's blood pressure: Elevated blood pressure Blood pressure disposition: Referred to PCP (evaluated by hospitalist) Consults Time Called: 138 Consulting Physician: Dr. Ball Returned Call: 138 Discussed the patient's case with Dr. Ball. The patient will be evaluated for further treatment and disposition. Impression Primary Impression: Left sided chest pain Additional Impression: Hypertension Scribe Attestation The scribe's documentation has been prepared under my direction and personally reviewed by me in its entirety. I confirm that the note above accurately reflects all work, treatment, procedures, and medical decision making performed by me. Departure Information Dispostion Being Evaluated By Hospitalist Referrals Noble King D.OXochitl (PCP) Patient Instructions My [facility] Problem Qualifiers
[2017-09-23 00:50] LABS: BASO % 0.5 %; BASO ABS # 0.04 K/uL (0-0.2); COMPLETE YES; EOS % 8.1 %; HEMATOCRIT 43.5 % (42-52); IG% 0.5 %; LYMPH % 17.1 %; LYMPH ABS # 1.47 K/uL (1.2-3.4); MEAN CELL VOLUME 86.8 fL (80-100); MEAN CORPUSCULAR HEMOGLOBIN 30.1 pg (25-34); MEAN CORPUSCULAR HGB CONC 34.7 g/dl (32-36); MEAN PLATELET VOLUME 11.7 fL (7.4-10.4); MONO % 13.9 %; NEUT % 59.9 %; PLATELET COUNT 203 K/uL (130-400); RED BLOOD COUNT 5.01 M/uL (4.7-6.1); WHITE BLOOD COUNT 8.62 K/uL (4.8-10.8)
[2017-09-23 00:58] LABS: INR 2.6 (0.9-1.1); PROTHROMBIN TIME (PATIENT) 26.4 SECONDS (9.0-12.0)
[2017-09-23 01:06] LABS: BLOOD UREA NITROGEN 11 mg/dl (7-18); CREATININE 1.24 mg/dl (0.60-1.40); GLUCOSE 114 mg/dl (70-99)
[2017-09-23 01:07] LABS: BUN/CREATININE RATIO 9.2 (10-20); CALCIUM 8.8 mg/dl (8.5-10.1); CARBON DIOXIDE 29 mmol/L (21-32); CHLORIDE 98 mmol/L (98-107); POTASSIUM 3.9 mmol/L (3.5-5.1); SODIUM 133 mmol/L (136-145)
[2017-09-23] MEDS ORDERED: DIPHCRE TD (01:12)
[2017-09-23] MEDS ORDERED: CRD200 PO (01:12)
[2017-09-23] MEDS ORDERED: WARF5TAB90 PO (01:12)
[2017-09-23] MEDS ORDERED: METF1000 PO (01:12)
[2017-09-23] MEDS ORDERED: LPR25 PO (01:12)
[2017-09-23] MEDS ORDERED: DPS25 PO (01:12)
[2017-09-23] MEDS ORDERED: NITROGLYCERIN 0.4 MG SL PER TAB CHARGE SL STA ×2 (01:26→02:21)
[2017-09-23] MEDS ORDERED: NITROGLYCERIN 0.4 MG SL PER TAB CHARGE ONE (01:29)
[2017-09-23 02:37] LABS: AST/SGOT 18 U/L (15-37); MAGNESIUM 1.7 mg/dl (1.8-2.4)
[2017-09-23 02:42] LABS: ALKALINE PHOSPHATASE 78 U/L (45-117); ALT/SGPT 28 U/L (12-78)
[2017-09-23] MEDS ORDERED: MAGNESIUM SULFATE 1GM / D5W 1 GM in PREMIXED IN D5W 100 ML IV ONE (04:15)
[2017-09-23] MEDS ORDERED: LORAZEPAM 2 MG/ML 1 ML VIAL IV PRN (04:30)
[2017-09-23] MEDS ORDERED: NITROGLYCERIN 0.4 MG SL PER TAB CHARGE SL PRN (04:30)
[2017-09-23] MEDS ORDERED: GLUCOSE 10 TABS/TUBE PO PRN (04:30)
[2017-09-23] MEDS ORDERED: SIMETHICONE 80 MG CHEW PO PRN (04:30)
[2017-09-23] MEDS ORDERED: MoRPHine SULFATE 4 MG/ML 1 ML CARP\\VIAL IV PRN (04:30)
[2017-09-23] MEDS ORDERED: DEXTROSE 50% 50 ML SYR IV PRN (04:30)
[2017-09-23] MEDS ORDERED: GLUCOSE 40% GEL 15 GM TUBE PO PRN (04:30)
[2017-09-23] MEDS ORDERED: TRAMADOL HCL 50 MG TAB PO PRN (04:30)
[2017-09-23] MEDS ORDERED: GLUCAGON FOR INJ 1 MG VIAL SQ PRN (04:30)
[2017-09-23] MEDS ORDERED: PROCHLORPERAZINE INJ 5 MG in SYRINGE 4 ML IV PRN (04:30)
[2017-09-23] MEDS ORDERED: IV FLUIDS COMPLETED PRN ×3 (05:00→05:15)
[2017-09-23] MEDS ORDERED: LORAZEPAM INJ 0.5 MG in SYRINGE 0.75 ML IV PRN (05:30)
[2017-09-23] MEDS: NSS + 20MEQ KCL 1000ML 1,000 ML IV SCH (05:59)
[2017-09-23] MEDS: INSULIN ASPART 100 UNITS/ML 3 ML PEN SC SCH ×4 (06:30→20:34)
--- NOTE | 2017-09-23 06:39 | DIAGNOSTIC IMAGING REPORT ---
CHEST ONE VIEW PORTABLE CLINICAL HISTORY: Atypical chest pain COMPARISON STUDY: 03/13/2017 FINDINGS: The cardiac and mediastinal contours remain stable. There is no failure. There is no focal pulmonary consolidation. There are no pleural effusions. Postsurgical changes involve the proximal left humerus.[ IMPRESSION: No active disease in the chest. Electronically signed by: Blair Vanessa M.D. 09/23/2017 6:38 AM Dictated Date/Time: 09/23/2017 6:37 AM
--- NOTE | 2017-09-23 06:40 | HISTORY & PHYSICAL EXAMINATION ---
DATE OF ADMISSION: 09/23/2017 CHIEF COMPLAINT: Chest pain. HISTORY OF PRESENT ILLNESS: History obtained from patient and records. 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 diff, history of NHL sp chemotherapy. Recent confinement of November 2016 for left upper extremity cellulitis. Yesterday, the patient was not feeling well, had a lot of gas. No jignesh abdominal pain or diarrhea. Patient had chest heaviness going to his left arm with some shortness of breath different from his heart attack in the past which was "ran across my collar bone." No unusual cough symptoms. Compliant with home medications. Does not check blood pressure at home. Admits to dietary indiscretion, eating more [employer] fries than usual. Denies unusual stress at home. Relief with nitroglycerin in the ER. MEDICAL HISTORY: As above. Recent outpatient [facility] Cardiology visit last month. Amiodarone retried at lower dose 50 b.i.d. as per patient for A. fib, owing to previous dizziness/ lightheadedness symptoms. A nuclear stress test from March of 2015 showed myocardial scar, EF of 68%, fixed small size perfusion defect of mild intensity encompassing the apical lateral segment consistent with myocardial scar. No inducible ischemia. SURGERIES: Cholecystectomy, vasectomy. hernia repair, tonsillectomy, shoulder surgery. HOME MEDICATIONS: Include Coumadin, metformin, Lopressor, multivitamins, Prilosec, dapsone, docusate sodium, Folvite, fluticasone, glipizide, artificial tears, aspirin, Lipitor, Proventil, amiodarone, vitamin B12. ALLERGIES: GOLD, LOSARTAN, PENICILLIN. FAMILY HISTORY: Heart disease. PERSONAL AND SOCIAL HISTORY: Past smoker, no chronic intake of alcoholic beverages. 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 REVIEW OF SYSTEMS: As per HPI. All 10 systems reviewed, all other ROS negative. PHYSICAL EXAMINATION: VITAL SIGNS: Blood pressure was noted to be 191/92, later 160/77, 141/81, pulse rate 83, respiratory rate 16, temperature 36.8, sats 96 on room air. GENERAL: Noted to be slightly anxious, looks younger for stated age, no respiratory distress. SKIN: Normal color. Warm. HEENT: [place] palpebral conjuctivae. No ptosis. Dry mucosa. NECK: No JVD. Supple. No tenderness. CHEST: Clear to auscultation. No tenderness. HEART: Bradycardic. No murmur. ABDOMEN: Soft, nontender. EXTREMITIES: No edema, no tenderness. No gross deformity. NEUROLOGIC: Coherent. No gross focality. LABORATORY DATA: Hemoglobin was noted to be 15.1, hematocrit 35.1, white blood cell count 8.6, platelets noted to be 203. Sodium 136, potassium 3.9, chloride 98, CO2 29, BUN 11, creatinine 1.1, glucose 114. Lipase normal. INR was noted to be 2.6, troponin was 0.015. Hemoglobin A1c June was 7.2. EKG as per my interpretation rate 65, sinus bradycardia, LVH, nonspecific T- wave abnormalities in inferior leads. Chest x-ray as per my interpretation, atelectasis, cardiomegaly. ASSESSMENT: 1. Chest pain possibly from hypertensive urgency secondary to gastrointestinal upset, dietary indiscretion. 2. Coronary artery disease status post stenting 3. paroxysmal atrial fibrilation. Patient bradycardic, normal sinus rhythm. INR therapeutic. 4. Past tobacco abuse. 5. Dermatitis herpetiformis, improved on dapsone. 6. DM2 on oral meds, well controlled as of recent outpatient hemoglobin A1c. 7. hx NHL sp chemotherapy PLAN: Observation PCU. Titrate BP meds. Continue home aspirin for secondary CAD prevention. Follow cardiac markers, Cardio consult RE chest pain. (Patient known to Dr. Jimenez.) Insulin sliding scale to maintain blood sugar 140-180. DVT prophylaxis, Coumadin INR 2-3. Full code. MTDD
[2017-09-23 06:50] LABS: BLOOD UREA NITROGEN 12 mg/dl (7-18); CALCIUM 8.4 mg/dl (8.5-10.1); CARBON DIOXIDE 28 mmol/L (21-32); CHLORIDE 100 mmol/L (98-107); CREATININE 1.06 mg/dl (0.60-1.40); GLUCOSE 100 mg/dl (70-99); MAGNESIUM 2.3 mg/dl (1.8-2.4); POTASSIUM 3.8 mmol/L (3.5-5.1); SODIUM 135 mmol/L (136-145)
[2017-09-23 06:55] LABS: CHOLESTEROL 120 mg/dl (0-200); HDL CHOLESTEROL 40 mg/dl; LDL CHOLESTEROL CALCULATED 48 mg/dl; TRIGLYCERIDES 158 mg/dl (0-150); VERY LOW DENSITY LIPOPROT CALC 32 mg/dl
[2017-09-23] MEDS ORDERED: NURSING VERBAL MED ORDER ONE ×3 (07:45→22:15)
[2017-09-23] MEDS ORDERED: AMIODARONE 200 MG TAB PO SCH ×2 (08:00)
[2017-09-23] MEDS: DAPSONE 25 MG TAB PO SCH (08:02)
[2017-09-23] MEDS: METOPROLOL TARTRATE 25 MG TAB PO SCH ×2 (08:03→21:24)
[2017-09-23] MEDS: ATORVASTATIN 40 MG TAB PO SCH (08:04)
[2017-09-23] MEDS: CEROVITE ADV FORMULA TAB PO SCH (08:05)
[2017-09-23] MEDS: PANTOprazole SOD 40 MG TAB PO SCH (08:07)
[2017-09-23] MEDS ORDERED: FLUTICASONE PROPIONATE NA SPR 16 GM BTL NAE SCH (09:00)
[2017-09-23] MEDS ORDERED: AMLODIPINE BESYLATE 5 MG TAB PO ONE ×2 (13:00→16:30)
--- NOTE | 2017-09-23 14:06 | CARDIOLOGY CONSULTATION ---
DATE OF CONSULTATION: 09/23/2017 CONSULTATION REQUESTED BY: Dr. Duran. REASON FOR CONSULTATION: Chest pain. HISTORY OF PRESENT ILLNESS: Mr. Santos is a very pleasant 72-year-old gentleman who normally follows with Kimberly Hollingsworth and Dr. Jimenez of our cardiology practice for his history of paroxysmal atrial fibrillation and coronary artery disease. The patient presented to [facility] very earlier in the a.m. of 09/23/2017 with a complaint of chest pain. The patient states that he has not been feeling well lately and has been dealing with significant amounts of abdominal bloating and gas. He also admits that he has been noncompliant with his diet and has been having significant amount of sodium lately, particularly Canadian fries. However, on 09/22/2017, the patient started developing chest discomfort. It started when he was sitting and watching television. He described it as a substernal pressure sensation that radiated down his left arm. He states that it was not very significant first and there did not appear to be any relieving or aggravating factors. It persisted for several hours; however, when he laid down to go to bed at night, his pain worsened. He became concerned and came into the Emergency Department. Of note, he denied any associated symptoms with this, specifically denying any associated diaphoresis, shortness of breath, palpitations, lightheadedness, dizziness, or syncope. He also states that this pain is completely different than the pain he had prior to undergoing PCI. Upon arrival to the Emergency Department, he was found to be severely hypertensive. He was given sublingual nitroglycerin with resolution of his discomfort and improvement of his pressure. He has not had any further discomfort since. PAST SURGICAL HISTORY: 1. PCI with a bare-metal stent to the circumflex in 2013. 2. Tonsil and adenoidectomy as a child. 3. Vasectomy. 4. Hernia repair. 5. Cholecystectomy. 6. Shoulder surgery. 7. Cataract surgery. 8. Colonoscopies. MEDICAL ILLNESSES: 1. Paroxysmal atrial fibrillation, on chronic low-dose amiodarone therapy and Coumadin. 2. Coronary artery disease. 3. GERD. 4. Lymphoma and immune thrombocytopenia, status post chemo. 5. Dyslipidemia. 6. Hypertension. FAMILY HISTORY: Noncontributory. SOCIAL HISTORY: The patient is a former smoker, quit in 1992. Denies any alcohol or recreational drug use. He is and lives at home with his . REVIEW OF SYSTEMS: As per HPI. All other review of systems reviewed and negative at this time. ALLERGIES: 1. GOLD. 2. LOSARTAN. 3. PENICILLIN. 4. TRIAMCINOLONE. MEDICATIONS AN OUTPATIENT: 1. Amiodarone 50 mg b.i.d. 2. Metoprolol tartrate 25 mg b.i.d. 3. Atorvastatin 40 mg daily. 4. Aspirin 81 mg daily. 5. Coumadin as directed by the Coumadin clinic. 6. Omeprazole b.i.d. 7. Folic acid daily. 8. Glucotrol b.i.d. 9. Metformin daily. PHYSICAL EXAMINATION: VITALS: Temperature 36.7, pulse 59, respiratory rate 12, and blood pressure 168/80. GENERAL: Awake, alert, and oriented x3, in no acute distress. HEENT: Normocephalic and atraumatic. Pupils equal, round, and reactive to light and accommodation. Extraocular muscles intact. Anicteric sclerae. Moist mucous membranes. NECK: No JVD. No bruit. CARDIOVASCULAR: Regular. Positive S4. Normal S1 and S2. No S3. No murmurs or rubs. PULMONARY: Clear to auscultation bilaterally. No rales, rhonchi, or wheezing. ABDOMEN: Bowel sounds x4. Soft. No rebound, guarding, or tenderness. No organomegaly. EXTREMITIES: No clubbing, cyanosis or edema. +2 pedal pulses bilaterally. SKIN: Warm and dry. TEST RESULTS: A 12-lead EKG performed in the Emergency Department independently reviewed at this time shows normal sinus rhythm at 61 beats per minute, normal axis, normal intervals, and normal study. No significant change compared to previous studies. LABORATORY STUDIES OF SIGNIFICANCE: Troponin negative x3. CPK of 67. Sodium 135, potassium 3.8, BUN 12, and creatinine 1. IMPRESSION: 1. Hypertensive urgency. 2. History of coronary artery disease. 3. Paroxysmal atrial fibrillation, currently in normal sinus rhythm, on chronic amiodarone and Coumadin therapy. 4. History of dizziness, on higher amiodarone doses. RECOMMENDATIONS: It was my pleasure to see Mr. Santos in consultation today. From a cardiac standpoint, given the lack of objective findings of ischemia, I believe this chest pain is easily explained by hypertensive urgency. So to that end, in order to better control his blood pressure at this time, we will give him a first dose of amlodipine 5 mg x1 now. The patient does have a DOCUMENTED ALLERGY TO LOSARTAN; however, upon review of EPIC records, it shows that it caused hypotension. So, I do not believe this ____ use of further VEGA or ARB should be necessary. Otherwise, he will be continued on his aspirin, amiodarone, metoprolol and Coumadin based on his INR. A 2D echocardiogram will be performed and should that be unremarkable, the patient will be discharged home once his blood pressure is controlled for close followup with his primary tube rebuilder as an outpatient to determine whether the stress testing would be necessary.
--- NOTE | 2017-09-23 16:26 | ECHOCARDIOGRAM REPORT ---
*NOTICE TO RECEIVING REPUBLICAN AGENCY This information is strictly Confidential and protected under [place] law. [place] law prohibits you from making any further disclosure of this information unless further disclosure is expressly permitted by the written consent of the person to whom it pertains or is authorized by law. A general authorization for the release of medical or other information is not sufficient for this purpose. Hospital accepts no responsibility if the information is made available to any other person, INCLUDING THE PATIENT. Interpretation Summary * Name: OFELIA LAMA JR Study Date: 09/23/2017 02:34 PM BP: 166/80 mmHg * Patient Location: [facility]\S\N276\S\1 HR: 57 * : 1945 (M/d/yyy) Gender: Male Height: 67 in * Age: 72 yrs Ethnicity: CA Weight: 181 lb * Ordering Physician: Ricky Ashton * Referring Physician: Self, Referred * Performed By: Kim Dalton RDCS * * Reason For Study: Chest pain * BSA: 1.9 m2 * -- Conclusions -- * Normal LV chamber size and wall thickness. * Mildly reduced LV systolic function, EF 45-50%. * Moderate hypokinesis of the anterior and apical gil, otherwise, normal wall motion. * Grade I diastolic dysfunction. * Aortic valve sclerosis mild, without significant aortic valvular stenosis. * Mild left atrial enlargment. Procedure Details * A complete two-dimensional transthoracic echocardiogram was performed (2D, M-mode, Doppler and color flow Doppler). * A contrast injection of Definity was performed to improve assessment of LV function. * Contrast was injected into an intravenous site in the right arm. * One vial of Definity ultrasound contrast was diluted in normal saline to a total volume of 10 ml. A total of '2' ml of solution was administered during imaging. * Lot # [id number] of Definity utilized for procedure. * Expiration date 1 NOV 25. * The attending nurse who injected the contrast agent was Mirna Velez RN. Left Ventricle * The left ventricle is normal in size. * There is normal left ventricular wall thickness. * Ejection Fraction = 45-50%. * Left ventricular systolic function is mildly reduced. * Moderate hypokinesis of the anterior and apical gil, otherwise, normal wall motion. Right Ventricle * The right ventricular cavity size is normal (basal dimension <4.2 cm in right ventricular apical 4-chamber view). * The right ventricular systolic function is normal as assessed by tricuspid annular plane systolic excursion (TAPSE) (normal >1.5 cm). Atria * The left atrium is mildly dilated. * Right atrial size is normal. * No ASD detected; PFO is not assessed. Mitral Valve * The mitral valve is normal in structure and function. Tricuspid Valve * The tricuspid valve is normal in structure and function. Aortic Valve * The aortic valve is trileaflet. * Aortic valve sclerosis mild, without significant aortic valvular stenosis. * There is no significant aortic regurgitation. Pulmonic Valve * The pulmonary valve is not well seen, but the Doppler examination is normal without significant regurgitation or stenosis. Great Vessels * The aortic root and proximal ascending aorta are normal sized. Pericardium/Pleural * There is no pericardial effusion. Left Ventricular Diastolic Function * Grade I diastolic dysfunction, (abnormal relaxation pattern). MMode 2D Measurements and Calculations IVSd 0.85 cm LVIDd 5.5 cm LVIDs 3.9 cm LVPWd 0.91 cm IVS/LVPW 0.93 FS 29.1 % EDV(Teich) 149.0 ml ESV(Teich) 66.6 ml EF(Teich) 55.3 % EDV(cubed) 168.6 ml ESV(cubed) 60.1 ml EF(cubed) 64.4 % LV mass(C)d 182.8 grams LV mass(C)dI 94.3 grams/m\S\2 SV(Teich) 82.3 ml SI(Teich) 42.5 ml/m\S\2 SV(cubed) 108.5 ml SI(cubed) 56.0 ml/m\S\2 Ao root diam 3.7 cm Ao root area 10.7 cm\S\2 ACS 2.0 cm LA dimension 3.9 cm asc Aorta Diam 3.5 cm LA/Ao 1.1 LVOT diam 2.0 cm LVOT area 3.0 cm\S\2 LVAd ap4 30.4 cm\S\2 LVLd ap4 7.0 cm EDV(MOD-sp4) 108.5 ml EDV(sp4-el) 112.1 ml LVAs ap4 18.6 cm\S\2 LVLs ap4 6.5 cm ESV(MOD-sp4) 45.3 ml ESV(sp4-el) 45.2 ml EF(MOD-sp4) 58.2 % EF(sp4-el) 59.7 % LVAd ap2 23.6 cm\S\2 LVLd ap2 6.7 cm EDV(MOD-sp2) 70.0 ml EDV(sp2-el) 71.2 ml LVAs ap2 13.1 cm\S\2 LVLs ap2 5.3 cm ESV(MOD-sp2) 26.9 ml ESV(sp2-el) 27.4 ml EF(MOD-sp2) 61.5 % EF(sp2-el) 61.6 % LVLd %diff -4.70 % EDV(MOD-bp) 89.5 ml LVLs %diff -21.70 % ESV(MOD-bp) 38.6 ml EF(MOD-bp) 56.9 % SV(MOD-sp4) 63.2 ml SI(MOD-sp4) 32.6 ml/m\S\2 SV(MOD-sp2) 43.1 ml SI(MOD-sp2) 22.2 ml/m\S\2 SV(MOD-bp) 50.9 ml SI(MOD-bp) 26.3 ml/m\S\2 SV(sp4-el) 66.9 ml SI(sp4-el) 34.5 ml/m\S\2 SV(sp2-el) 43.8 ml SI(sp2-el) 22.6 ml/m\S\2 Doppler Measurements and Calculations MV E max alexandria 58.7 cm/sec MV A max alexandria 74.2 cm/sec MV E/A 0.79 MV dec time 0.22 sec Ao V2 max 105.9 cm/sec Ao max PG 4.5 mmHg Ao max PG (full) 2.9 mmHg RACHAEL(V,A) 1.8 cm\S\2 RACHAEL(V,D) 1.8 cm\S\2 LV V1 max PG 1.6 mmHg LV V1 max 62.6 cm/sec PA V2 max 82.8 cm/sec PA max PG 2.7 mmHg PA acc slope 249.7 cm/sec\S\2 PA acc time 0.17 sec PI end-d alexandria 92.3 cm/sec TR max alexandria 232.1 cm/sec PA pr(Accel) 2.9 mmHg
--- NOTE | 2017-09-23 16:36 | Progress Note ---
Progress Note Date of Service Sep 23, 2017. Progress Note Bp remains elevated despite addition of amlodipine 5mg, will given additional 5mg now for a total of 10mg daily Echo shows new anterior wall hypokinesis, discussed finding with patient and . Recommend cardiac cath in AM and patient agrees. NPO after midnight except meds. No objective sign of active ischemia, no role for heparin at this time. Cont metoprolol and asa.
--- NOTE | 2017-09-23 18:04 | Progress Note ---
Progress Note Date of Service Sep 23, 2017. Progress Note Subjective Patient has not been in distress today. Reports chest pain resolved since being in hospital. However due to abnormal echo results, patient is to get cardiac cath tomorrow. Patient understands the hospital plan Physical Exam General: no acute distress Lungs: CTABL Heart: bradycardic on rate control medications Abdomen: soft, nontender, + bowel sounds Extremities: no edema Cardiac echo * Normal LV chamber size and wall thickness. * Mildly reduced LV systolic function, EF 45-50%. * Moderate hypokinesis of the anterior and apical gil, otherwise, normal wall motion. * Grade I diastolic dysfunction. * Aortic valve sclerosis mild, without significant aortic valvular stenosis. * Mild left atrial enlargment. Plan Chest pain at home in a patient with PMH for coronary artery stent Echo shows new anterior wall hypokinesis, NPO after midnight except meds for cardiac cath. As per cardiology there is no objective sign of active ischemia, no role for heparin at this time. Cont metoprolol and asa. Dr. Ashton also ordered amiodarone 100 mg BID and amlodipine history of paroxysmal atrial fibrilation and is heart rate controlled, bradycardic to the 50s without symptoms Coumadin with INR 2.4 on 09/23/17 AM. Hold Coumadin tonight. Restart coumadin after cardiac cath unless otherwise contraindicated. DM2 on oral meds, well controlled as of recent outpatient hemoglobin A1c. -sliding scale insulin for now History of Celiac disease / Dermatitis Herpetiformis without acute skin rash on this admission History of Non Hodgkin Lymphoma sp chemotherapy, has been in remission
[2017-09-23] MEDS: AMIODARONE 200 MG TAB PO SCH (18:27)
[2017-09-23] MEDS ORDERED: HydrALAZINE HCL 20 MG/ML VIAL IV. PRN (19:15)
[2017-09-23] MEDS: ASPIRIN 81 MG ECTAB PO SCH (21:18)
[2017-09-24] VITALS (15 sets, daily range): BP systolic 131–162; BP diastolic 69–85; PULSE 54–88; TEMP 36.3–36.8; O2SAT 93–97
[2017-09-24] MEDS: NSS + 20MEQ KCL 1000ML 1,000 ML IV SCH (00:11)
[2017-09-24 07:37] LABS: BASO % 0.4 %; BASO ABS # 0.03 K/uL (0-0.2); COMPLETE YES; EOS % 6.3 %; HEMATOCRIT 42.1 % (42-52); IG% 0.4 %; LYMPH % 14.5 %; LYMPH ABS # 1.03 K/uL (1.2-3.4); MEAN CELL VOLUME 86.4 fL (80-100); MEAN CORPUSCULAR HEMOGLOBIN 30.6 pg (25-34); MEAN CORPUSCULAR HGB CONC 35.4 g/dl (32-36); MONO % 16.9 %; NEUT % 61.5 %; PLATELET COUNT 178 K/uL (130-400); RED BLOOD COUNT 4.87 M/uL (4.7-6.1)
[2017-09-24 07:42] LABS: PROTHROMBIN TIME (PATIENT) 20.7 SECONDS (9.0-12.0)
[2017-09-24] MEDS ORDERED: HEPARIN SOD (PORCINE) 1000 UNIT/ML 10 ML VIAL ONE ×2 (07:47→09:10)
[2017-09-24] MEDS ORDERED: MIDAZOLAM HCL 1 MG/ML 2ML VIAL ONE ×2 (07:47→09:10)
[2017-09-24] MEDS ORDERED: FENTANYL CITRATE INJ 50 MCG/1 ML 2 ML VIAL ONE ×2 (07:47→09:10)
[2017-09-24] MEDS ORDERED: NiCARDipine HCL INJ 2.5 MG/ML 10 ML AMP ONE (07:47)
[2017-09-24] MEDS ORDERED: NITROGLYCERIN/D5W 100MCG/ML 20ML SYR ONE (07:48)
[2017-09-24] MEDS ORDERED: AMLODIPINE BESYLATE 5 MG TAB PO SCH (09:00)
--- NOTE | 2017-09-24 09:21 | Cardiac Catheterization ---
Procedure Note Procedure Date Sep 24, 2017. Pre-Procedure Diagnosis Angina AUC Score 9 Post-Procedure Diagnosis Severe CAD Procedure(s) Performed Coronary Angiography Housekeeping Assistant Dr. Ivory Managing Broker(s) None Estimated Blood Loss None Medication(s) Heparin, Nicardipine, Nitroglycerin, Versed, Lidocaine 1% Summary of Findings Stent in Circ from 2013 is patent. 20% ostial RCA. 20% LMT. Long 70-80% Mid LAD. Hemodynamics Rest Ao: 121/66 Final Ao: 150/76 LV: Valve not crossed Recommendations PCI without planned CABG Specimens None Radiation Exposure (mGy) 1776 Contrast (mls) 93 Fluids (cc crystalloids) 102 Procedural Complication(s) None Disposition Recovery Room / PACU ACC Data Cardiac Status Clinical evaluation leading to the procedure CAD Presntation: Unstable angina Anginal Classification: CCS III Heart Failure: No Cardiogenic Shock w/in 24Hrs: No Cardiac Arrest w/in 24Hrs: No Imaging studies past 6 months: Yes Stress studies past 6 months: No Coronary Anatomy Dominant: Right Left Main (% Stenosis): Ostial (20) LAD (% Stenosis): Mid (70-80) Circumflex (% Stenosis): Normal (Stented site patent) RCA (% Stenosis): Ostial (20) Diagnostic Status: Urgent Closure Device Percutaneous Entry Location: Radial Closure Device: Radial Band Recommendations: PCI without planned CABG PCI Indication: Unstable Angina
[2017-09-24] MEDS ORDERED: CLOPIDOGREL BISULFATE 300 MG TAB PO ONE (09:51)
--- NOTE | 2017-09-24 10:21 | Cardiac Catheterization ---
Procedure Note Procedure Date Sep 24, 2017. Pre-Procedure Diagnosis Acute Coronary Syndrome, Cardiomyopathy AUC Score 7 Post-Procedure Diagnosis Severe CAD, Successful PCI Procedure(s) Performed Drug Eluting Stent Tile Designer Conner Field Representative/Health Education(s) Lo Estimated Blood Loss 15 Medication(s) Fentanyl, Heparin, Nicardipine, Nitroglycerin, Versed Summary of Findings Indication: ACS, new anterior wall motion abnormality on echo. Access: 6Fr right radial artery Catheters: EBU 3.5 guide Findings: For full details of patient's coronary angiography please see cath report dictated by Dr. Ivory. Briefly patient found to have new diffuse mid LAD severe disease. Decision made to proceed with PCI in the setting of corresponding regional wall motion abnormality. -- PCI -- Antithrombotic therapy: Heparin, Clopidogrel Procedure: LM cannulated with EBU 3.5 guide Prowater wire passed across lesion into distal vessel Mid LAD lesion predilated with 2.5 compliant balloon Dilated lesion stented with 3.0 x 30 [place] SIMIN Stent post-dilated with stent balloon. IC vasodilators administered for spasm Post procedure JANN 3 flow, stent well expanded with minimal residual stenosis and no apparent cardiac complications. Arterial Closure: TR Band Summary: 1. Successful PCI of mid LAD with one SIMIN (3.0 x 30 Shailesh). Recommendations: To PCU for continued monitoring Loaded with Clopidogrel 600mg Recommend triple therapy with ASA/clopidogrel and coumadin for 1 month; then continue coumadin and clopidogrel for 6 months. Continue statin, ASCVD risk factor modification per Dr. Ivory Consult cardiac Rehab Hemodynamics Rest Ao: 121/66/92 Final Ao: 117/61/84 LV: -- Recommendations PCI without planned CABG Specimens None Radiation Exposure (mGy) 3520 Contrast (mls) 150 (total 243) Fluids (cc crystalloids) 190 Drains None Anesthesia Moderate Procedural Complication(s) None Disposition PCU ACC Data Cardiac Status Clinical evaluation leading to the procedure CAD Presntation: Unstable angina Anginal Classification: CCS III Heart Failure: No, NYHA Class: CCS I Cardiogenic Shock w/in 24Hrs: No Cardiac Arrest w/in 24Hrs: No Imaging studies past 6 months: Yes Stress studies past 6 months: No Closure Device Percutaneous Entry Location: Radial Closure Device: Radial Band Recommendations: Medical therapy and/or Counseling PCI Indication: Unstable Angina Lesion Segment Name: mid LAD Culprit Artery: Yes Stenosis Prior to Rx (%): 70-80 Chronic Total Occlusion: No IVUS: No FFR: No Previously Treated Lesion: No Lesion Complexity: Non-High/Non-C Lesion Length (mm): 25 Thrombus Present: No Bifurcation Lesion: No Guidewire Across Lesion: Yes Guidewire: Stenosis Post-Procedure (%): 0 Post-Procedure JANN Flow: 3 Device(s) Deployed: Yes Intraprocedure Events Significant Dissection: No Perforation: No
[2017-09-24] MEDS ORDERED: SODIUM CHLORIDE 0.9% 1000ML 1,000 ML IV SCH (10:30)
[2017-09-24] MEDS: INSULIN ASPART 100 UNITS/ML 3 ML PEN SC SCH ×4 (10:34→20:10)
[2017-09-24] MEDS: ACETAMINOPHEN 325 MG TAB PO PRN ×2 (10:44→15:42)
[2017-09-24] MEDS: PANTOprazole SOD 40 MG TAB PO SCH (10:45)
[2017-09-24] MEDS: ATORVASTATIN 40 MG TAB PO SCH (10:45)
[2017-09-24] MEDS: CEROVITE ADV FORMULA TAB PO SCH (10:46)
[2017-09-24] MEDS: METOPROLOL TARTRATE 25 MG TAB PO SCH ×2 (10:46→20:38)
[2017-09-24] MEDS: AMIODARONE 200 MG TAB PO SCH ×2 (10:46→17:08)
[2017-09-24] MEDS: DAPSONE 25 MG TAB PO SCH (10:47)
[2017-09-24] MEDS: AMLODIPINE BESYLATE 5 MG TAB PO SCH (10:47)
--- NOTE | 2017-09-24 12:20 | Cardiology Follow-Up ---
Subjective Subjective Date of Service: Sep 24, 2017. Pt evaluation today including: conversation w/ patient, physical exam, chart review, lab review, review of studies, review of inpatient medication list Additional Details: Pt seen and examined, s/p cardiac cath and PCI to LAD. Currently states that he feels well. Denies cp, sob, palpitations, lightheadedness or dizziness. Tele reviewed: sinus rhythm without arrhythmia or significant ectopy. Problem List Medical Problems: (1) Cellulitis of arm Status: Acute (2) Eczema Status: Acute (3) Facial swelling Status: Acute (4) Hypertension Status: Acute (5) Left sided chest pain Status: Acute (6) Pruritus Status: Acute (7) Sepsis Status: Acute (8) Thrombocytopenia Status: Acute Review of Systems Respiratory: No see HPI, No cough, No sputum, No wheezing, No shortness of breath, No dyspnea on exertion, No dyspnea at rest, No hemoptysis, No problem reported Cardiac: No see HPI, No chest pain, No orthopnea, No PND, No edema, No claudication, No palpitations, No problem reported Objective Vital Signs Last Vital Signs Documentation Date Time Temp Pulse Resp B/P (MAP) Pulse Ox O2 Delivery O2 Flow Rate FiO2 09/24/17 11:45 62 18 131/79 (96) 96 Room Air 09/24/17 11:44 36.7 09/24/17 10:05 3 Physical Exam: General Appearance: WD/WN, no apparent distress Eyes: bilateral eyes normal inspection, bilateral eyes PERRL, bilateral eyes EOMI ENT: normal ENT inspection, hearing grossly normal, pharynx normal Neck: supple, no adenopathy, thyroid normal, no JVD, no carotid bruits, trachea midline Respiratory/Chest: chest non-tender, lungs clear, normal breath sounds Cardiovascular: regular rate, rhythm, no edema, no JVD Abdomen: normal bowel sounds, non tender, soft, no organomegaly Extremities: normal range of motion, non-tender, normal inspection, no pedal edema, no calf tenderness, + pertinent finding (right radial band in place, no errhythema or active bleeding) Neurologic/Psychiatric: banquet attendant II-XII nml as tested, no motor/sensory deficits, alert, normal mood/affect, oriented x 3 Skin: normal color, warm/dry, no rash Lymphatic: no adenopathy Assessment and Plan 1. hypertensive urgency resolved bp now well controlled cont amlodipine 2. CAD wall motion abnormality on echo with anterior wall hypokinesis cardiac cath revealed significant LAD lesion underwent successful PCI will monitor overnight need for aspirin and plavix reinforced with patient, plavix for 1 year, aspirin lifelong
[2017-09-24] MEDS ORDERED: NURSING VERBAL MED ORDER ONE (14:30)
[2017-09-24] MEDS ORDERED: WARFARIN SOD 5 MG TAB PO ONE (17:15)
--- NOTE | 2017-09-24 17:39 | Progress Note ---
Medicine Progress Note Date & Time of Visit: Sep 24, 2017 at 17:12. Subjective Pt was seen and examined Lying in bed comfortable with no distress Pt said that he feels fine denies any chest pain, palpitation, dizziness and SOB Objective Last 8 Hrs Date Time Temp Pulse Resp B/P (MAP) Pulse Ox O2 Delivery O2 Flow Rate FiO2 09/24/17 16:07 Room Air 09/24/17 15:41 36.3 56 16 137/71 (93) 95 Room Air 09/24/17 13:00 56 16 142/81 (101) 97 Room Air 09/24/17 12:30 54 16 140/78 (98) 95 Room Air 09/24/17 12:00 Room Air 09/24/17 12:00 55 18 137/72 (93) 94 Room Air 09/24/17 11:45 62 18 131/79 (96) 96 Room Air 09/24/17 11:44 36.7 88 18 142/69 (93) 95 09/24/17 11:15 62 18 131/79 (96) 96 Room Air 09/24/17 11:00 59 18 143/78 (99) 93 Room Air 09/24/17 10:45 59 18 148/74 (98) 94 Room Air 09/24/17 10:30 58 18 146/82 (103) 95 Room Air 09/24/17 10:15 63 18 162/85 (110) 96 Room Air 09/24/17 10:05 66 16 132/78 (96) 98 Nasal Cannula 3 09/24/17 09:50 64 16 139/80 (99) 98 Nasal Cannula 3 Physical Exam: General- No acute distress Head- atraumatic Eyes- PERRL, EOMI ENT- oropharynx clear Neck- supple, no JVD Lungs- clear to auscultation Heart- regular rhythm Abdomen- normal bowel sounds, soft Extremities- no calf tenderness, no hematoma in right wrist area Neuro- alert, oriented x 3; PERRL, EOMI Skin- warm & dry Laboratory Results: Last 24 Hours Test 09/23/17 20:15 09/24/17 07:20 09/24/17 09:45 09/24/17 11:55 Bedside Glucose 170 mg/dl 160 mg/dl White Blood Count 7.10 K/uL Red Blood Count 4.87 M/uL Hemoglobin 14.9 g/dL Hematocrit 42.1 % Mean Corpuscular Volume 86.4 fL Mean Corpuscular Hemoglobin 30.6 pg Mean Corpuscular Hemoglobin Concent 35.4 g/dl Platelet Count 178 K/uL Mean Platelet Volume 11.0 fL Neutrophils (%) (Auto) 61.5 % Lymphocytes (%) (Auto) 14.5 % Monocytes (%) (Auto) 16.9 % Eosinophils (%) (Auto) 6.3 % Basophils (%) (Auto) 0.4 % Neutrophils # (Auto) 4.36 K/uL Lymphocytes # (Auto) 1.03 K/uL Monocytes # (Auto) 1.20 K/uL Eosinophils # (Auto) 0.45 K/uL Basophils # (Auto) 0.03 K/uL RDW Standard Deviation 44.2 fL RDW Coefficient of Variation 13.9 % Immature Granulocyte % (Auto) 0.4 % Immature Granulocyte # (Auto) 0.03 K/uL Prothrombin Time 20.7 SECONDS Prothromb Time International Ratio 2.0 Kaolin Activated Coagulation Time 290 SECONDS Assessment & Plan Chest pain EKG showed no ischemic changes Trop negative Echo shows new anterior wall hypokinesis S/P cardiac cath done today revealed significant LAD lesion. underwent successful PCI Recommend triple therapy with ASA/clopidogrel and Coumadin for 1 month; then continue Coumadin and clopidogrel for 6 months. 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 ACHS SC 09/23/17 06:30 10/23/17 06:59 Glucose (Glucose 40% Gel) 15-30 GRAMS 15 GRAMS... UD PRN PO 09/23/17 04:30 10/23/17 04:29 Glucose (Glucose Chew Tab) 4-8 Tablets 4 Tabl... UD PRN PO 09/23/17 04:30 10/23/17 04:29 Dextrose (Dextrose 50% 50ML Syringe) 25-50ML OF 50% DW IV FOR... UD PRN IV 09/23/17 04:30 10/23/17 04:29 Glucagon (Glucagon Inj) 1 mg UD PRN SQ 09/23/17 04:30 10/23/17 04:29 Aspirin (Ecotrin Tab) 81 mg QPM PO 09/23/17 21:00 10/23/17 20:59 09/23/17 21:18 81 MG Folic Acid (Folvite Tab) 1 mg DAILY PO 09/23/17 09:00 10/23/17 08:59 09/24/17 10:45 1 MG Metoprolol Tartrate (Lopressor Tab) 25 mg BID PO 09/23/17 09:00 10/23/17 08:59 09/24/17 10:46 25 MG Multivitamins/ Minerals (Multivitamin W/ Minerals Tab) 1 tab QAM PO 09/23/17 09:00 10/23/17 08:59 09/24/17 10:46 1 TAB Dapsone (Dapsone Tab) 25 mg DAILY PO 09/23/17 09:00 10/23/17 08:59 09/24/17 10:47 25 MG Pantoprazole Sodium (Protonix Tab) 40 mg QAM PO 09/23/17 09:00 10/23/17 08:59 09/24/17 10:45 40 MG Tramadol HCl (Ultram Tab) not relieved by tylenol @ Q6H PRN PO 09/23/17 04:30 10/23/17 04:29 Prochlorperazine Edisylate 5 mg/ Syringe 5 ml @ 5 mls/min Q6H PRN IV 09/23/17 04:30 10/23/17 04:29 Lorazepam (Ativan Inj) 0.5 mg Q4H PRN IV 09/23/17 04:30 10/23/17 04:29 Morphine Sulfate (MoRPHine SULFATE INJ) 4 mg Q3H PRN IV 09/23/17 04:30 10/07/17 04:29 Simethicone (Mylicon Chew Tab) 80 mg Q6H PRN PO 09/23/17 04:30 10/23/17 04:29 Atorvastatin Calcium (Lipitor Tab) 40 mg DAILY PO 09/23/17 09:00 10/23/17 08:59 09/24/17 10:45 40 MG Miscellaneous (Iv Fluids Completed) 1 ea PRN PRN N/A 09/23/17 05:00 09/23/18 04:59 Miscellaneous (Iv Fluids Completed) 1 ea PRN PRN N/A 09/23/17 05:00 09/23/18 04:59 Lorazepam 0.5 mg/ Syringe 1 ml @ 1 mls/min Q4H PRN IV 09/23/17 05:30 10/23/17 05:29 Amiodarone HCl (Cordarone Tab) 100 mg BIDM PO 09/23/17 17:00 10/23/17 07:59 09/24/17 17:08 100 MG Amlodipine Besylate (Norvasc Tab) 10 mg QAM PO 09/24/17 09:00 10/24/17 08:59 09/24/17 10:47 10 MG Sodium Chloride 1,000 ml @ 100 mls/hr Q10H IV 09/24/17 10:30 09/24/17 17:59 09/24/17 12:07 100 MLS/HR Clopidogrel Bisulfate (plAVix TAB) 75 mg QAM PO 09/25/17 09:00 10/25/17 08:59 Fluticasone Propionate (Flonase Nasal [place]) 2 sprays PM EMANI 09/24/17 21:00 10/24/17 20:59
[2017-09-24] MEDS: ASPIRIN 81 MG ECTAB PO SCH (20:38)
[2017-09-24] MEDS ORDERED: FLUTICASONE PROPIONATE NA SPR 16 GM BTL NAE SCH (21:00)
[2017-09-25 03:19] VITALS: BP 130/79; PULSE 57; TEMP 36.8; O2SAT 93
[2017-09-25 06:55] LABS: HEMATOCRIT 40.9 % (42-52); MEAN CELL VOLUME 86.8 fL (80-100); MEAN CORPUSCULAR HEMOGLOBIN 30.1 pg (25-34); MEAN CORPUSCULAR HGB CONC 34.7 g/dl (32-36); MEAN PLATELET VOLUME 10.9 fL (7.4-10.4); PLATELET COUNT 172 K/uL (130-400); RED BLOOD COUNT 4.71 M/uL (4.7-6.1); WHITE BLOOD COUNT 8.99 K/uL (4.8-10.8)
[2017-09-25 07:00] VITALS: BP 120/75; PULSE 61; TEMP 36.7; O2SAT 96
[2017-09-25] MEDS: INSULIN ASPART 100 UNITS/ML 3 ML PEN SC SCH ×2 (07:00→12:45)
[2017-09-25 07:01] LABS: INR 1.6 (0.9-1.1); PROTHROMBIN TIME (PATIENT) 16.4 SECONDS (9.0-12.0)
[2017-09-25 07:28] LABS: BUN/CREATININE RATIO 10.1 (10-20); CALCIUM 8.4 mg/dl (8.5-10.1); CREATININE 1.16 mg/dl (0.60-1.40); POTASSIUM 3.8 mmol/L (3.5-5.1)
[2017-09-25] MEDS: AMLODIPINE BESYLATE 5 MG TAB PO SCH (07:51)
[2017-09-25] MEDS: AMIODARONE 200 MG TAB PO SCH (07:51)
[2017-09-25] MEDS: ATORVASTATIN 40 MG TAB PO SCH (07:51)
[2017-09-25] MEDS: DAPSONE 25 MG TAB PO SCH (07:52)
[2017-09-25] MEDS: METOPROLOL TARTRATE 25 MG TAB PO SCH (07:52)
[2017-09-25] MEDS: PANTOprazole SOD 40 MG TAB PO SCH (07:52)
[2017-09-25] MEDS: CEROVITE ADV FORMULA TAB PO SCH (07:52)
[2017-09-25] MEDS ORDERED: CLOPIDOGREL BISULFATE 75 MG TAB PO SCH (09:00)
--- NOTE | 2017-09-25 10:36 | Cardiology Follow-Up ---
Subjective Subjective Date of Service: Sep 25, 2017. Pt evaluation today including: conversation w/ patient, physical exam, chart review, lab review, review of studies, review of inpatient medication list Additional Details: Pt seen and examined, states that he feels well. Denies cp, wrist pain, sob, palpitations, lightheadedness or dizziness. Tele reviewed: sinus rhythm without arrhythmia or significant ectopy. Problem List Medical Problems: (1) Cellulitis of arm Status: Acute (2) Eczema Status: Acute (3) Facial swelling Status: Acute (4) Hypertension Status: Acute (5) Left sided chest pain Status: Acute (6) Pruritus Status: Acute (7) Sepsis Status: Acute (8) Thrombocytopenia Status: Acute Review of Systems Respiratory: No see HPI, No cough, No sputum, No wheezing, No shortness of breath, No dyspnea on exertion, No dyspnea at rest, No hemoptysis, No problem reported Cardiac: No see HPI, No chest pain, No orthopnea, No PND, No edema, No claudication, No palpitations, No problem reported Objective Vital Signs Last Vital Signs Documentation Date Time Temp Pulse Resp B/P (MAP) Pulse Ox O2 Delivery O2 Flow Rate FiO2 09/25/17 08:00 Room Air 09/25/17 07:00 36.7 61 18 120/75 (90) 96 09/24/17 10:05 3 Physical Exam: General Appearance: WD/WN, no apparent distress Eyes: bilateral eyes normal inspection, bilateral eyes PERRL, bilateral eyes EOMI ENT: normal ENT inspection, hearing grossly normal, pharynx normal Neck: supple, no adenopathy, thyroid normal, no JVD, no carotid bruits, trachea midline Respiratory/Chest: chest non-tender, lungs clear, normal breath sounds Cardiovascular: regular rate, rhythm, no edema, no JVD Abdomen: normal bowel sounds, non tender, soft, no organomegaly Extremities: normal range of motion, non-tender, normal inspection, no pedal edema, no calf tenderness, + pertinent finding (right radial band in place, no errhythema or active bleeding) Neurologic/Psychiatric: form setter steel forms II-XII nml as tested, no motor/sensory deficits, alert, normal mood/affect, oriented x 3 Skin: normal color, warm/dry, no rash Lymphatic: no adenopathy Assessment and Plan 1. hypertensive urgency resolved bp now well controlled cont amlodipine 2. CAD wall motion abnormality on echo with anterior wall hypokinesis cardiac cath revealed significant LAD lesion underwent successful PCI doing well ok for d/c need for aspirin and plavix reinforced with patient, plavix for 1 year, aspirin lifelong instructed to increase activity gradually will assess for need of cardiac rehab as outpatient but doubt will be necessary my office will arrange f/u ok to d/c to home
[2017-09-25 11:38] VITALS: BP 132/73; PULSE 60; TEMP 36.9; O2SAT 97
--- NOTE | 2017-09-25 12:56 | Progress Note ---
Medicine Progress Note Date & Time of Visit: Sep 25, 2017 at 12:34. Subjective Pt was seen examined Lying in bed with no distress Pt said that he feels fine Denies any chest pain, palpitation, dizziness and SOB Objective Last 8 Hrs Date Time Temp Pulse Resp B/P (MAP) Pulse Ox O2 Delivery O2 Flow Rate FiO2 09/25/17 11:38 36.9 60 20 132/73 (92) 97 Room Air 09/25/17 08:00 Room Air 09/25/17 07:00 36.7 61 18 120/75 (90) 96 Room Air Physical Exam: General- No acute distress Head- atraumatic Eyes- PERRL, EOMI ENT- oropharynx clear Neck- supple, no JVD Lungs- clear to auscultation Heart- regular rhythm Abdomen- normal bowel sounds, soft Extremities- no calf tenderness, no hematoma in right wrist area Neuro- alert, oriented x 3; PERRL, EOMI Skin- warm & dry Laboratory Results: Last 24 Hours Test 09/24/17 15:55 09/24/17 20:04 09/25/17 06:18 09/25/17 06:38 Bedside Glucose 174 mg/dl 160 mg/dl 156 mg/dl White Blood Count 8.99 K/uL Red Blood Count 4.71 M/uL Hemoglobin 14.2 g/dL Hematocrit 40.9 % Mean Corpuscular Volume 86.8 fL Mean Corpuscular Hemoglobin 30.1 pg Mean Corpuscular Hemoglobin Concent 34.7 g/dl RDW Standard Deviation 44.7 fL RDW Coefficient of Variation 14.1 % Platelet Count 172 K/uL Mean Platelet Volume 10.9 fL Prothrombin Time 16.4 SECONDS Prothromb Time International Ratio 1.6 Sodium Level 136 mmol/L Potassium Level 3.8 mmol/L Chloride Level 104 mmol/L Carbon Dioxide Level 25 mmol/L Anion Gap 7.0 mmol/L Blood Urea Nitrogen 12 mg/dl Creatinine 1.16 mg/dl Est Creatinine Clear Calc Drug Dose 52.2 ml/min Estimated GFR () 71.5 Estimated GFR (Non- 61.7 BUN/Creatinine Ratio 10.1 Random Glucose 156 mg/dl Calcium Level 8.4 mg/dl Test 09/25/17 11:19 Bedside Glucose 237 mg/dl Assessment & Plan Chest pain EKG showed no ischemic changes Trop negative Echo shows new anterior wall hypokinesis S/P cardiac cath done yesterday revealed significant LAD lesion. underwent successful PCI Recommend triple therapy with ASA/clopidogrel and Coumadin for 1 month; then continue Coumadin and clopidogrel for 6 months. Continue metoprolol and statin No arrhythmia on tele monitor Follow up with cardiology Hx Paroxysmal atrial fibrillation Rate controlled Continue amiodarone Coumadin 1.6 today Continue monitor INR HTN Continue amlodipine and metoprolol Stable DM2 Stable Continue monitor BS Hx Celiac disease Dermatitis Herpetiformis Stable History of Non Hodgkin Lymphoma sp chemotherapy Stable DVT PX on Coumadin CODE STATUS FULL CODE DISPOSITION Will discharge home today Follow up with Dr King on 10/01 @ 2:45 PM Follow up with Cardiology Kimberly JONES on 09/27 @ 1:15 PM Consultants: cardio Current Inpatient Medications: Current Inpatient Medications Medications (Trade) Dose Ordered Sig/Pollo Route Start Time Stop Time Status Last Admin Dose Admin Acetaminophen (Tylenol Tab) 650 mg Q4H PRN PO 09/23/17 04:30 10/23/17 04:29 09/24/17 15:42 650 MG Nitroglycerin (Nitrostat Tab) 0.4 mg UD PRN SL 09/23/17 04:30 10/23/17 04:29 Insulin Aspart (novoLOG ASPART) SLIDING SCALE If C... ACHS SC 09/23/17 06:30 10/23/17 06:59 Glucose (Glucose 40% Gel) 15-30 GRAMS 15 GRAMS... UD PRN PO 09/23/17 04:30 10/23/17 04:29 Glucose (Glucose Chew Tab) 4-8 Tablets 4 Tabl... UD PRN PO 09/23/17 04:30 10/23/17 04:29 Dextrose (Dextrose 50% 50ML Syringe) 25-50ML OF 50% DW IV FOR... UD PRN IV 09/23/17 04:30 10/23/17 04:29 Glucagon (Glucagon Inj) 1 mg UD PRN SQ 09/23/17 04:30 10/23/17 04:29 Aspirin (Ecotrin Tab) 81 mg QPM PO 09/23/17 21:00 10/23/17 20:59 09/24/17 20:38 81 MG Folic Acid (Folvite Tab) 1 mg DAILY PO 09/23/17 09:00 10/23/17 08:59 09/25/17 07:52 1 MG Metoprolol Tartrate (Lopressor Tab) 25 mg BID PO 09/23/17 09:00 10/23/17 08:59 09/25/17 07:52 25 MG Multivitamins/ Minerals (Multivitamin W/ Minerals Tab) 1 tab QAM PO 09/23/17 09:00 10/23/17 08:59 09/25/17 07:52 1 TAB Dapsone (Dapsone Tab) 25 mg DAILY PO 09/23/17 09:00 10/23/17 08:59 09/25/17 07:52 25 MG Pantoprazole Sodium (Protonix Tab) 40 mg QAM PO 09/23/17 09:00 10/23/17 08:59 09/25/17 07:52 40 MG Tramadol HCl (Ultram Tab) not relieved by tylenol @ Q6H PRN PO 09/23/17 04:30 10/23/17 04:29 Prochlorperazine Edisylate 5 mg/ Syringe 5 ml @ 5 mls/min Q6H PRN IV 09/23/17 04:30 10/23/17 04:29 Lorazepam (Ativan Inj) 0.5 mg Q4H PRN IV 09/23/17 04:30 10/23/17 04:29 Morphine Sulfate (MoRPHine SULFATE INJ) 4 mg Q3H PRN IV 09/23/17 04:30 10/07/17 04:29 Simethicone (Mylicon Chew Tab) 80 mg Q6H PRN PO 09/23/17 04:30 10/23/17 04:29 Atorvastatin Calcium (Lipitor Tab) 40 mg DAILY PO 09/23/17 09:00 10/23/17 08:59 09/25/17 07:51 40 MG Miscellaneous (Iv Fluids Completed) 1 ea PRN PRN N/A 09/23/17 05:00 09/23/18 04:59 Miscellaneous (Iv Fluids Completed) 1 ea PRN PRN N/A 09/23/17 05:00 09/23/18 04:59 Lorazepam 0.5 mg/ Syringe 1 ml @ 1 mls/min Q4H PRN IV 09/23/17 05:30 10/23/17 05:29 Amiodarone HCl (Cordarone Tab) 100 mg BIDM PO 09/23/17 17:00 10/23/17 07:59 09/25/17 07:51 100 MG Amlodipine Besylate (Norvasc Tab) 10 mg QAM PO 09/24/17 09:00 10/24/17 08:59 09/25/17 07:51 10 MG Clopidogrel Bisulfate (plAVix TAB) 75 mg QAM PO 09/25/17 09:00 10/25/17 08:59 09/25/17 07:53 75 MG Fluticasone Propionate (Flonase Nasal [place]) 2 sprays PM EMANI 09/24/17 21:00 10/24/17 20:59 09/24/17 20:37 2 SPRAYS
[2017-09-25] MEDS ORDERED: NRV5 PO (12:59)
[2017-09-25] MEDS ORDERED: PLV75 PO (12:59)
[2017-09-25 13:04] VITALS: BP 132/73; PULSE 60; TEMP 36.9; O2SAT 97
--- NOTE | 2017-09-25 13:06 | Discharge Instructions ---
Discharge Instructions Date of Service Sep 25, 2017. Admission Reason for Admission: Chest Pain Discharge Discharge Diagnosis / Problem: Chest pain/HTN/ P. Afib Discharge Goals Goal(s): Decrease discomfort, Improve function, Improve disease control Activity Recommendations Activity Limitations: resume your previous activity (as tolerated) . Instructions / Follow-Up Instructions / Follow-Up Follow up with Dr King on 10/01 @ 2:45 PM Follow up with Cardiology Kimberly JONES on 09/27 @ 1:15 PM Continue plavix/aspirin and Coumadin for now. (Please notify your physician if you develop any abnormal bleeding ) Continue follow with the coumadin clinic Continue monitor blood pressure Current Hospital Diet Patient's current hospital diet: AHA Diet (Heart Healthy), Diabetes Type 2 Diet , Gluten Free Diet Discharge Diet Recommended Diet: AHA Diet (Heart Healthy), Low Sodium Diet (2gm Na), Gluten Free Diet Pending Studies Studies pending at discharge: no Laboratory Results Lipid Panel Test 09/23/17 06:00 Range/Units Triglycerides Level 158 H 0-150 mg/dl Cholesterol Level 120 0-200 mg/dl HDL Cholesterol 40 mg/dl Cholesterol/HDL Ratio 3.0 LDL Cholesterol, Calculated 48 mg/dl Medical Emergencies . Who to Call and When: Medical Emergencies: If at any time you feel your situation is an emergency, please call 911 immediately. . Non-Emergent Contact Non-Emergency issues call your: Primary Care Provider Call Non-Emergent contact if: you have any medication questions . . "Provider Documentation" section prepared by Shyam Lopez. . VTE Core Measure Inpt VTE Proph given/why not?: Warfarin (Coumadin)
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
== END 2017-09-25 13:35 | disposition home or self-care (01) ==
LOC: C.EDB 00:24 → C.MED 04:03 → ENRESERV 04:49 → C.2T 09-24 10:20
PROVIDERS: ADMIT Internal Medicine; ATTEND Internal Medicine
DX: I25.10 Atherosclerotic heart disease of native coronary artery without angina pectoris (principal); I48.0 Paroxysmal atrial fibrillation; I10 Essential (primary) hypertension; E11.9 Type 2 diabetes mellitus without complications; L13.0 Dermatitis herpetiformis; I25.2 Old myocardial infarction; E78.5 Hyperlipidemia, unspecified; Z90.49 Acquired absence of other specified parts of digestive tract; Z80.3 Family history of malignant neoplasm of breast; Z83.3 Family history of diabetes mellitus; Z82.49 Family history of ischemic heart disease and other diseases of the circulatory system; Z82.3 Family history of stroke; Z80.41 Family history of malignant neoplasm of ovary; Z88.0 Allergy status to penicillin; Z85.72 Personal history of non-Hodgkin lymphomas; Z79.82 Long term (current) use of aspirin; Z95.818 Presence of other cardiac implants and grafts; Z86.19 Personal history of other infectious and parasitic diseases; Z79.01 Long term (current) use of anticoagulants; Z79.84 Long term (current) use of oral hypoglycemic drugs; Z92.21 Personal history of antineoplastic chemotherapy
CPT/HCPCS: 93458; C9600

== ENCOUNTER 2017-11-17 14:09 | Emergency (ER) | payer OTHER ==
[~2017-11-17] VITALS: Ht 171.5 cm; Wt 85.8 kg
[~2017-11-17 14:09] MED LIST changes: -ASTN; -AUG0.05O4 TOP; +CRD200 PO; -DIPH2CRE16 EXT; +DIPHCRE TD; +DPS25 PO; +METF1000 PO; +NRV5 PO; +PLV75 PO; -TACR0.1O6 TOP
[2017-11-17 14:10] VITALS: TEMP 36.9; Ht 171.5 cm; Wt 85.8 kg
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
[2017-11-17 14:45] LABS: BASO % 0.5 %; BASO ABS # 0.05 K/uL (0-0.2); EOS % 3.6 %; EOS ABS # 0.34 K/uL (0-0.5); HEMOGLOBIN 15.1 g/dL (14.0-18.0); IG# 0.07 K/uL (0.00-0.02); LYMPH % 12.2 %; LYMPH ABS # 1.15 K/uL (1.2-3.4); MEAN CELL VOLUME 88.3 fL (80-100); MEAN CORPUSCULAR HGB CONC 35.1 g/dl (32-36); MONO % 11.9 %; MONO ABS # 1.12 K/uL (0.11-0.59); NEUT % 71.1 %; NEUT ABS # 6.72 K/uL (1.4-6.5); PLATELET COUNT 252 K/uL (130-400); RED CELL DISTRIBUTION WIDTH CV 13.4 % (11.5-14.5); RED CELL DISTRIBUTION WIDTH SD 42.8 fL (36.4-46.3); WHITE BLOOD COUNT 9.45 K/uL (4.8-10.8)
[2017-11-17 15:02] LABS: ALBUMIN 4.1 gm/dl (3.4-5.0); ALT/SGPT 33 U/L (12-78); AST/SGOT 24 U/L (15-37); BLOOD UREA NITROGEN 9 mg/dl (7-18); CARBON DIOXIDE 24 mmol/L (21-32); CREATININE 1.28 mg/dl (0.60-1.40); GLUCOSE 152 mg/dl (70-99); LIPASE 120 U/L (73-393); POTASSIUM 3.8 mmol/L (3.5-5.1); SODIUM 133 mmol/L (136-145)
[2017-11-17 15:07] LABS: ALKALINE PHOSPHATASE 85 U/L (45-117); TOTAL PROTEIN 7.9 gm/dl (6.4-8.2)
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
[2017-11-17] MEDS ORDERED: ACETAMINOPHEN 500 MG TAB PO STA (16:03)
[2017-11-17] MEDS ORDERED: ONDANSETRON INJ 2 MG/ML 2 ML VIAL IV STA (16:03)
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
[2017-11-17 16:23] LABS: INR 1.5 (0.9-1.1)
[2017-11-17] MEDS ORDERED: ONDANSETRON HOME PACK 4MG OD TAB PO ONE (16:45)
[2017-11-17 16:47] VITALS: BP 138/71; PULSE 69; O2SAT 96
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
== END 2017-11-17 16:49 | disposition home or self-care (01) ==
LOC: EDBD 14:09 → C.EDB 14:10
DX: S16.1XXA Strain of muscle, fascia and tendon at neck level, initial encounter (principal); R51 Headache; V43.52XA Car driver injured in collision with other type car in traffic accident, initial encounter; W22.19XA Striking against or struck by other automobile airbag, initial encounter; Y92.410 Unspecified street and highway as the place of occurrence of the external cause; Z79.899 Other long term (current) drug therapy; Z79.01 Long term (current) use of anticoagulants; E11.9 Type 2 diabetes mellitus without complications; I10 Essential (primary) hypertension; Z87.891 Personal history of nicotine dependence; Z88.0 Allergy status to penicillin; Z88.8 Allergy status to other drugs, medicaments and biological substances

== ENCOUNTER → 2017-12-13 | Outpatient (CLI) | payer OTHER ==
--- NOTE | 2017-12-13 14:37 | DIAGNOSTIC IMAGING REPORT ---
CHEST 2 VIEWS ROUTINE HISTORY: Lower extremity edema. COMPARISON: Chest 11/17/2017. FINDINGS: The heart remains borderline enlarged. The lungs are clear. No pleural effusions. No pneumothorax. No evidence for pulmonary edema. Mildly tortuous thoracic aorta. Postoperative changes within the proximal left humerus. IMPRESSION: No significant change compared to the prior study. No acute process. Electronically signed by: Michael Gomez M.D. 12/13/2017 2:35 PM Dictated Date/Time: 12/13/2017 2:34 PM
== END | disposition home or self-care (01) ==
LOC: C.RAD1850 14:26
PROVIDERS: ATTEND Family Medicine
DX: I21.9 Acute myocardial infarction, unspecified (principal); Z86.79 Personal history of other diseases of the circulatory system; R60.0 Localized edema

== ENCOUNTER 2018-02-24 07:57 | Inpatient (IN) | payer OTHER ==
[~2018-02-24] VITALS: Ht 171.4 cm; Wt 79.2 kg
[2018-02-24] MEDS ORDERED: PHARMACY GLYCEMIC MGMT CONSULT PRN (09:28)
[2018-02-24 09:52] VITALS: BP 183/88; PULSE 53; TEMP 36.5; O2SAT 96; Ht 171.4 cm; Wt 79.2 kg
[2018-02-24] MEDS ORDERED: PATIENT'S HEIGHT AND/OR WEIGHT NEEDED SCH (10:00)
[2018-02-24] MEDS ORDERED: GLUCOSE 40% GEL 15 GM TUBE PO PRN (10:15)
[2018-02-24] MEDS ORDERED: GLUCOSE 10 TABS/TUBE PO PRN (10:15)
[2018-02-24] MEDS ORDERED: CARBOHYDRATES FOR HYPOGLYCEMIA PO PRN (10:15)
[2018-02-24] MEDS ORDERED: DEXTROSE 50% 50 ML SYR IV PRN (10:15)
[2018-02-24] MEDS ORDERED: GLUCAGON FOR INJ 1 MG VIAL SQ PRN (10:15)
[2018-02-24 10:38] LABS: BASO % 0.4 %; BASO ABS # 0.02 K/uL (0-0.2); EOS % 5.8 %; EOS ABS # 0.33 K/uL (0-0.5); HEMATOCRIT 42.4 % (42-52); HEMOGLOBIN 14.3 g/dL (14.0-18.0); IG# 0.01 K/uL (0.00-0.02); LYMPH % 11.1 %; LYMPH ABS # 0.63 K/uL (1.2-3.4); MEAN CELL VOLUME 88.3 fL (80-100); MEAN CORPUSCULAR HEMOGLOBIN 29.8 pg (25-34); MEAN CORPUSCULAR HGB CONC 33.7 g/dl (32-36); MONO % 16.3 %; MONO ABS # 0.93 K/uL (0.11-0.59); NEUT % 66.2 %; NEUT ABS # 3.78 K/uL (1.4-6.5); PLATELET COUNT 168 K/uL (130-400); RED CELL DISTRIBUTION WIDTH CV 12.8 % (11.5-14.5); RED CELL DISTRIBUTION WIDTH SD 41.2 fL (36.4-46.3)
[2018-02-24 10:43] LABS: INR 2.4 (0.9-1.1)
[2018-02-24] MEDS ORDERED: WARF5TAB7 PO (10:53)
[2018-02-24 11:00] LABS: ALBUMIN 3.5 gm/dl (3.4-5.0); ALKALINE PHOSPHATASE 89 U/L (45-117); ALT/SGPT 22 U/L (12-78); AST/SGOT 19 U/L (15-37); BLOOD UREA NITROGEN 14 mg/dl (7-18); CALCIUM 8.6 mg/dl (8.5-10.1); CARBON DIOXIDE 28 mmol/L (21-32); CREATININE 1.33 mg/dl (0.60-1.40); GLUCOSE 217 mg/dl (70-99); POTASSIUM 4.3 mmol/L (3.5-5.1); SODIUM 140 mmol/L (136-145); TOTAL PROTEIN 6.7 gm/dl (6.4-8.2)
[2018-02-24] MEDS ORDERED: ALBUTEROL HFA 8 GM INHALER INH PRN (11:15)
[2018-02-24] MEDS ORDERED: ARTIFICIAL TEARS OP SOLN OPB PRN (11:15)
[2018-02-24 11:45] VITALS: BP 181/81; PULSE 54; TEMP 36.6; O2SAT 96
[2018-02-24] MEDS ORDERED: SOTALOL HCL 80 MG TAB PO ONE (11:45)
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
[2018-02-24] MEDS: INSULIN ASPART 100 UNITS/ML 3 ML PEN SC SCH ×3 (12:02→20:47)
--- NOTE | 2018-02-24 13:38 | Pharmacy Progress Note ---
Glycemic Control Intl Consult Date of Service February 24, 2018. Scope Glycemic Pharmacist consulted by Dr Gilbert on 02/24/18 for glycemic control and to write orders per [facility] inpatient glycemic control protocol Objective Weight (Kilograms): 80.200 Accuchecks BSG (last 24hrs): Test 02/24/18 10:24 02/24/18 11:40 Random Glucose 217 mg/dl (70-99) Bedside Glucose 143 mg/dl (70-99) Laboratory Data (last 24hrs) Test 02/24/18 10:24 Anion Gap 5.0 mmol/L BUN/Creatinine Ratio 10.4 Blood Urea Nitrogen 14 mg/dl Creatinine 1.33 mg/dl Potassium Level 4.3 mmol/L Sodium Level 140 mmol/L White Blood Count 5.70 K/uL Red Blood Count 4.80 M/uL Hemoglobin 14.3 g/dL Hematocrit 42.4 % Mean Corpuscular Volume 88.3 fL Mean Corpuscular Hemoglobin 29.8 pg Mean Corpuscular Hemoglobin Concent 33.7 g/dl Platelet Count 168 K/uL Mean Platelet Volume 12.0 fL Neutrophils (%) (Auto) 66.2 % Lymphocytes (%) (Auto) 11.1 % Monocytes (%) (Auto) 16.3 % Eosinophils (%) (Auto) 5.8 % Basophils (%) (Auto) 0.4 % Neutrophils # (Auto) 3.78 K/uL Lymphocytes # (Auto) 0.63 K/uL Monocytes # (Auto) 0.93 K/uL Eosinophils # (Auto) 0.33 K/uL Basophils # (Auto) 0.02 K/uL HbA1c unknown, last A1c in record is 7.1% on 11/30/13 {outdated} Recent Pertinent Medications Outpatient Anti-diabetic Regimen: * Glipizide 10mg PO BIDM * Metformin 1,000 mg PO BIDM Assessment & Plan ASSESSMENT: * 73yo T2DM male with unknown degree of outpatient control; A1c is outdated, will re-order per protocol * Pt is maintained on oral antidiabetic agents as an outpatient * Oral agents are not recommended for inpatient use d/t drug interactions, changing PO intake, and difficulty titrating for acute hyper/hypoglycemia. ADA recommends re-initiating outpatient oral agents 1-2 days prior to discharge if/ when appropriate if they were held on admission. * Will hold oral agents for admission and utilize SQ basal bolus insulin regimen which is the recommended regimen for inpatient glycemic control. * Will initiate weight based insulin dosing for insulin asia patient and titrate based on BSG trends. * Will start with conservative dosing hypoglycemia can be a cause of dizziness. PLAN FOR INPATIENT GLYCEMIC CONTROL: * Holding outpatient oral diabetes medications for admission * Basal insulin * Lantus dosing based on BSG to prevent under/over dosing * BSG below 140 mg/dl --> 0 units * BSG 140-180 mg/dl --> 15 units (0.2 units/kg) * BSG above 180 mg/dl --> 20 units (0.25 units/kg) * Bolus insulin * NovoLog per scale ACHS or Q6hrs while NPO * Goal Range: Low 110 mg/dL - High 140 mg/dL * Correction Factor: 30 mg/dL/unit * Nutritional / Prandial insulin per carb ratio of 1 unit per 10 grams CHO consumed * A1c with AM labs 02/25/18 * Please note that the plan above was derived based on current level of insulin resistance and hospital stress. These recommendations are appropriate for inpatient admission only. Plan of care upon discharge will need to be reassessed to avoid potential outpatient hypo/hyperglycemia. Thank you.
[2018-02-24 15:26] VITALS: BP 179/90; PULSE 50; TEMP 36.5; O2SAT 95
[2018-02-24] MEDS ORDERED: WARFARIN SOD 2.5 MG TAB PO SCH (16:00)
[2018-02-24] MEDS: INSULIN GLARGINE SOLOSTAR 100 UNITS/ML 3 ML PEN SC SCH ×2 (16:45→20:47)
[2018-02-24 19:35] VITALS: BP 166/77; PULSE 52; TEMP 36.4; O2SAT 97
[2018-02-24] MEDS: ATORVASTATIN 20 MG TAB PO SCH (20:45)
[2018-02-24] MEDS: SOTALOL HCL 80 MG TAB PO SCH (20:45)
[2018-02-24] MEDS: ASPIRIN 81 MG ECTAB PO SCH (20:45)
[2018-02-24 23:38] VITALS: BP 164/77; PULSE 50; TEMP 36.5; O2SAT 97
[2018-02-25] VITALS (8 sets, daily range): BP systolic 131–166; BP diastolic 72–85; PULSE 48–52; TEMP 36.5–36.6; O2SAT 93–98
[2018-02-25 06:17] LABS: HEMOGLOBIN A1C 7.1 % (4.5-5.6); INR 2.2 (0.9-1.1)
[2018-02-25] MEDS: CLOPIDOGREL BISULFATE 75 MG TAB PO SCH (07:31)
[2018-02-25] MEDS: CEROVITE ADV FORMULA TAB PO SCH (07:31)
[2018-02-25] MEDS: CYANOCOBALAMIN 500 MCG TAB (VIT B-12) PO SCH (07:32)
[2018-02-25] MEDS: SOTALOL HCL 80 MG TAB PO SCH ×2 (07:32→21:09)
[2018-02-25] MEDS: DAPSONE 25 MG TAB PO SCH (07:32)
[2018-02-25] MEDS: DOCUSATE SODIUM 100 MG CAP PO SCH (07:32)
[2018-02-25] MEDS: AMLODIPINE BESYLATE 5 MG TAB PO SCH (07:32)
[2018-02-25] MEDS: PANTOprazole SOD 40 MG TAB PO SCH (07:32)
[2018-02-25] MEDS: INSULIN ASPART 100 UNITS/ML 3 ML PEN SC SCH ×4 (07:33→21:13)
[2018-02-25] MEDS: INSULIN GLARGINE SOLOSTAR 100 UNITS/ML 3 ML PEN SC SCH ×2 (07:34→21:13)
--- NOTE | 2018-02-25 08:41 | Pharmacy Progress Note ---
Pharmacy Glycemic Short Note 2 Date of Service February 25, 2018. OUTPATIENT ANTIDIABETIC REGIMEN: * Glipizide 10mg PO BIDM * Metformin 1,000 mg PO BIDM Item Value Date Time Random Glucose 217 mg/dl H 02/24/18 1024 Bedside Glucose 143 mg/dl H 02/24/18 1140 Bedside Glucose 104 mg/dl H 02/24/18 1620 Bedside Glucose 160 mg/dl H 02/24/18 2040 Bedside Glucose 149 mg/dl H 02/25/18 0723 ASSESSMENT: * 73yo T2DM male with excellent outpatient glycemic control per recent A1c * A1c = 7.1% on 02/25/18 which is in goal range for patient based on age and co- morbidities * Pt is maintained on oral antidiabetic agents to achieve this level of control * Will hold oral agents for admission and utilize recommended inpatient glycemic control regimen of SQ basal bolus insulin regimen * Initiated low dose weight based SQ basal bolus insulin regimen yesterday * Pt received 24 units of insulin 02/24/18 * 15 units of basal insulin with Lantus * 9 units of prandial/correctional insulin with NovoLog * AM fasting BSG is slightly above goal range at 149 mg/dl indicating more basal insulin is needed. However, pt only received one dose of basal insulin and it is not yet at steady state. Anticipate AM fasting BSG to continue to trend downwards with repeated dosing * Currently dosing basal insulin as Q24h dosing which makes transitioning back to outpatient oral agents difficult with total daily dose of insulin on board. Will transition to half dosing BID for easier transition * Post-prandial BSGs are in goal range (180mg/dl or below) * No changes needed to CF/CR PLAN FOR INPATIENT GLYCEMIC CONTROL: * Hold outpatient oral diabetes medications * Basal insulin: continue total daily dose of ~ 15 units/day but split dosing BID for easier transition to outpatient regimen at discharge * Lantus 8 units SQ BID - start 02/26 as 15 units was already given this morning * Bolus insulin * NovoLog per scale ACHS or Q6hrs while NPO * Goal Range: Low 110 mg/dL - High 140 mg/dL * Correction Factor: 30 mg/dL/unit * Nutritional / Prandial insulin per carb ratio of 1 unit per 10 grams CHO consumed PLAN FOR DISCHARGE: * Pt with adequate glycemic control on current outpatient regimen * Pt may resume glipizide and metformin at previously ordered doses at discharge. * If insulin given the morning of discharge recommend holding morning doses of glipizide/metformin and resuming at dinner time.
[2018-02-25] MEDS ORDERED: FLUTICASONE PROPIONATE NA SPR 16 GM BTL NAE SCH (09:00)
[2018-02-25] MEDS ORDERED: ATORVASTATIN 20 MG TAB PO SCH (09:00)
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
[2018-02-25] MEDS ORDERED: WARFARIN SOD 5 MG TAB PO SCH (16:00)
[2018-02-25] MEDS: FLUTICASONE PROPIONATE NA SPR 16 GM BTL NAE SCH (21:08)
[2018-02-25] MEDS: ATORVASTATIN 20 MG TAB PO SCH (21:09)
[2018-02-25] MEDS: ASPIRIN 81 MG ECTAB PO SCH (21:10)
[2018-02-25] MEDS ORDERED: ACETAMINOPHEN 325 MG TAB PO PRN (21:30)
[2018-02-26] VITALS (8 sets, daily range): BP systolic 111–131; BP diastolic 72–80; PULSE 61–86; TEMP 36.4–36.9; O2SAT 94–97
[2018-02-26 06:39] LABS: HEMATOCRIT 44.7 % (42-52); HEMOGLOBIN 15.5 g/dL (14.0-18.0); MEAN CORPUSCULAR HEMOGLOBIN 30.2 pg (25-34); MEAN CORPUSCULAR HGB CONC 34.7 g/dl (32-36); PLATELET COUNT 181 K/uL (130-400); RED CELL DISTRIBUTION WIDTH CV 12.8 % (11.5-14.5); WHITE BLOOD COUNT 5.85 K/uL (4.8-10.8)
[2018-02-26 06:49] LABS: INR 1.8 (0.9-1.1)
[2018-02-26 07:01] LABS: BLOOD UREA NITROGEN 13 mg/dl (7-18); CALCIUM 8.5 mg/dl (8.5-10.1); CARBON DIOXIDE 27 mmol/L (21-32); CREATININE 1.23 mg/dl (0.60-1.40); GLUCOSE 153 mg/dl (70-99); POTASSIUM 3.7 mmol/L (3.5-5.1); SODIUM 141 mmol/L (136-145)
[2018-02-26] MEDS: CLOPIDOGREL BISULFATE 75 MG TAB PO SCH (07:42)
[2018-02-26] MEDS: PANTOprazole SOD 40 MG TAB PO SCH (07:42)
[2018-02-26] MEDS: DOCUSATE SODIUM 100 MG CAP PO SCH (07:42)
[2018-02-26] MEDS: CEROVITE ADV FORMULA TAB PO SCH (07:42)
[2018-02-26] MEDS: SOTALOL HCL 80 MG TAB PO SCH ×2 (07:43→21:02)
[2018-02-26] MEDS: CYANOCOBALAMIN 500 MCG TAB (VIT B-12) PO SCH (07:43)
[2018-02-26] MEDS: DAPSONE 25 MG TAB PO SCH (07:43)
[2018-02-26] MEDS: AMLODIPINE BESYLATE 5 MG TAB PO SCH (07:44)
[2018-02-26] MEDS: INSULIN ASPART 100 UNITS/ML 3 ML PEN SC SCH ×4 (07:45→21:08)
[2018-02-26] MEDS ORDERED: INSULIN GLARGINE SOLOSTAR 100 UNITS/ML 3 ML PEN SC SCH ×3 (09:00→16:45)
[2018-02-26] MEDS ORDERED: POTASSIUM CHLORIDE 10 MEQ TABCR PO STA (11:30)
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
--- NOTE | 2018-02-26 11:52 | Pharmacy Progress Note ---
Pharmacy Glycemic Short Note 2 Date of Service February 26, 2018. OUTPATIENT ANTIDIABETIC REGIMEN: * Glipizide 10mg PO BIDM * Metformin 1,000 mg PO BIDM * Item Value Date Time Hemoglobin A1c 7.1 % H 02/25/18 0531 Estimated Average Glucose 157 mg/dl 02/25/18 0531 Bedside Glucose 149 mg/dl H 02/25/18 0723 Bedside Glucose 114 mg/dl H 02/25/18 1112 Bedside Glucose 147 mg/dl H 02/25/18 1619 Bedside Glucose 194 mg/dl H 02/25/18 2023 Bedside Glucose 157 mg/dl H 02/26/18 0718 Bedside Glucose 130 mg/dl H 02/26/18 1111 ASSESSMENT: * 73yo T2DM male with excellent outpatient glycemic control per recent A1c * A1c = 7.1% on 02/25/18 which is in goal range for patient based on age and co- morbidities * Pt is maintained on oral antidiabetic agents to achieve this level of control * holding oral agents for admission and utilize recommended inpatient glycemic control regimen of SQ basal bolus insulin regimen * Initiated low dose weight based SQ basal bolus insulin regimen 02/24/18 * Pt has been receiving ~ 40 units of insulin per day with adequate control * 23 units of basal insulin with Lantus * 16 units of prandial/correctional insulin with NovoLog * AM fasting BSG is slightly above goal range at 157 mg/dl indicating more basal insulin is needed. Did not increase basal insulin yesterday since Lantus was not at steady state. Appropriate to increase dosing today since patient has received at least 3 doses. Will keep dosing conservative as to not exacerbate dizziness with hypoglycemia. * Continue BID dosing of Lantus for easier transition back to oral antidiabetic agents at discharge * Post-prandial BSGs mostly are in goal range (180mg/dl or below) * No changes needed to CF/CR PLAN FOR INPATIENT GLYCEMIC CONTROL: * Hold outpatient oral diabetes medications * Basal insulin: increase to a total daily dose of ~ 26 units/day - split dosing BID for easier transition to outpatient regimen at discharge * Lantus 13 units SQ BID - start 02/27 as pt only received 8 units this morning. Will give one time dose of 18 units this evening to make the full dose today. * Bolus insulin: no change * NovoLog per scale ACHS or Q6hrs while NPO * Goal Range: Low 110 mg/dL - High 140 mg/dL * Correction Factor: 30 mg/dL/unit * Nutritional / Prandial insulin per carb ratio of 1 unit per 10 grams CHO consumed PLAN FOR DISCHARGE: * Pt with adequate glycemic control on current outpatient regimen * Pt may resume glipizide and metformin at previously ordered doses at discharge. * If insulin given the morning of discharge recommend holding morning doses of glipizide/metformin and resuming at dinner time.
[2018-02-26] MEDS ORDERED: WARFARIN SOD 7.5 MG TAB PO SCH (16:00)
[2018-02-26] MEDS: FLUTICASONE PROPIONATE NA SPR 16 GM BTL NAE SCH (21:01)
[2018-02-26] MEDS: ASPIRIN 81 MG ECTAB PO SCH (21:02)
[2018-02-26] MEDS: ATORVASTATIN 20 MG TAB PO SCH (21:03)
[2018-02-27 00:01] VITALS: O2SAT 94
[2018-02-27 03:20] VITALS: BP 107/64; PULSE 71; TEMP 37; O2SAT 97
[2018-02-27 04:03] VITALS: O2SAT 94
[2018-02-27 06:16] VITALS: BP 114/77; PULSE 62; TEMP 36.5; O2SAT 92
[2018-02-27 06:19] LABS: INR 1.9 (0.9-1.1)
[2018-02-27] MEDS: SOTALOL HCL 80 MG TAB PO SCH (07:47)
[2018-02-27] MEDS: DOCUSATE SODIUM 100 MG CAP PO SCH (07:47)
[2018-02-27] MEDS: CEROVITE ADV FORMULA TAB PO SCH (07:47)
[2018-02-27] MEDS: PANTOprazole SOD 40 MG TAB PO SCH (07:47)
[2018-02-27] MEDS: CYANOCOBALAMIN 500 MCG TAB (VIT B-12) PO SCH (07:48)
[2018-02-27] MEDS: CLOPIDOGREL BISULFATE 75 MG TAB PO SCH (07:48)
[2018-02-27] MEDS: DAPSONE 25 MG TAB PO SCH (07:48)
[2018-02-27] MEDS: AMLODIPINE BESYLATE 5 MG TAB PO SCH (07:49)
[2018-02-27] MEDS: INSULIN ASPART 100 UNITS/ML 3 ML PEN SC SCH ×2 (07:54→11:00)
[2018-02-27] MEDS ORDERED: INSULIN GLARGINE SOLOSTAR 100 UNITS/ML 3 ML PEN SC SCH ×2 (09:00)
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
[2018-02-27] MEDS ORDERED: BTP80 PO (10:14)
[2018-02-27] MEDS ORDERED: WARFARIN SOD 7.5 MG TAB PO ONE (10:15)
--- NOTE | 2018-02-27 10:27 | Discharge Instructions ---
Discharge Instructions Date of Service February 27, 2018. Admission Reason for Admission: Paroxysmal Atrial Fibrillation Discharge Discharge Diagnosis / Problem: Paroxysmal atrial fibrillation, stable coronary heart disease Discharge Goals Goal(s): Decrease discomfort, Improve function, Prevent Disease Progression Activity Recommendations Activity Limitations: resume your previous activity Exercise/Sports Limitations: gradually increase as tolerated May Resume Sexual Activity: when tolerated Shower/Bathe: no limitations Driving or Machine Use: no limitations . Current Hospital Diet Patient's current hospital diet: Diabetes Type 2 Diet, AHA Diet (Heart Healthy) Discharge Diet Recommended Diet: Diabetes Type 2 Diet Pending Studies Studies pending at discharge: no Laboratory Results Hemoglobin A1c Test 02/25/18 05:31 Range/Units Estimated Average Glucose 157 mg/dl Hemoglobin A1c 7.1 H 4.5-5.6 % Medical Emergencies . Who to Call and When: Medical Emergencies: If at any time you feel your situation is an emergency, please call 911 immediately. . Non-Emergent Contact Non-Emergency issues call your: [employer] . . Keep follow up visit as planned: 03/27/2018 3:30 PM Provider: Itz Jimenez DO Department: Cardiology, [facility] Keep follow up with [facility] anticoagulation clinic as planned. "Provider Documentation" section prepared by Itz Jimenez. .
--- NOTE | 2018-02-27 10:44 | Discharge Summary ---
Discharge Summary Date of Service February 27, 2018. Discharge Summary Admission Date: February 24, 2018 at 09:26 Discharge Date: February 27, 2018 Discharge Disposition: Home Principal Diagnosis: Symptomatic atrial fibrillation Medication Reconciliation New Medications: Sotalol HCl (Sotalol HCl) 80 Mg Tab 80 MG PO BID for 60 Days, #120 TAB 3 Refills Continued Medications: Albuterol Sulfate (Proventil Hfa) 108 Mcg/Act Aer 2 PUFFS INH Q6 PRN for Wheezing Amlodipine Besylate (Amlodipine Besylate) 5 Mg Tab 10 MG PO QAM for 30 Days, #60 TAB Artificial Tear Solution (Just Tears Eye Drops) 1 Babs Babs 1 DROP OPB BID PRN for PRN Atorvastatin (Lipitor) 40 Mg Tab 20 MG PO DAILY, TAB 1/2 TABLET DOSE Clopidogrel Bisulfate (Clopidogrel) 75 Mg Tab 75 MG PO QAM for 30 Days, #30 TAB Cyanocobalamin (Vitamin B-12) 1,000 Mcg Tab 1000 MCG PO DAILY, TAB Dapsone (Dapsone) 25 Mg Tab 25 MG PO DAILY, TAB Diphenhydramine-Zinc Acetate (Diphenhydramine Hcl/Zinc) 1 Cre Cre 1 APPLN TD Q8 PRN for Itching Docusate Sodium (Docusate Sodium) 100 Mg Cap 100 MG PO DAILY for 30 Days, #30 CAP Fluticasone Propionate (Fluticasone Propionate) 120 Sprays/6000 Mcg Inha 2 SPRAYS EMANI DAILY Folic Acid (Folvite) 1 Mg Tab 1 MG PO DAILY, TAB Glipizide (Glucotrol) 10 Mg Tab 10 MG PO BIDM, TAB Metformin Hcl (Glucophage) 1,000 Mg Tab 500 MG PO BID, TAB Multivitamins/Minerals (Mvi With Minerals) Tab 1 TAB PO QAM, TAB Omeprazole (Prilosec) 20 Mg Cap 20 MG PO QAM, CAP Warfarin Sod (Jantoven) 5 Mg Tab 5 MG PO Sat, TAB Warfarin Sodium (Coumadin) 5 Mg Tab 2.5 MG PO sat,fri, TAB Discontinued Medications: Amiodarone HCl (Amiodarone HCl) 200 Mg Tab 50 MG PO BIDM, TAB TAKES 1/4 TAB. Aspirin (Aspirin Ec) 81 Mg Tab 81 MG PO QPM Metoprolol Tartrate (Lopressor) 25 Mg Tab 25 MG PO BID, TAB Admission Information HPI (per Admitting provider): Gaurav Santos is a 73 year old year old male with most recently been assessed by the undersigned in the outpatient cardiology clinic on 02/12/18 for complaint of ongoing dizziness with his history of chronic coronary heart disease, symptomatic paroxysmal atrial fibrillation, and baseline sinus bradycardia. He has been having episodic dizziness for about a year. He states that it is worse if he is performing activity that requires him to bend over it such as when he was recently washing his truck. When this occurs he has debilitating dizziness and he has had to lay on the ground recently to recover. He has had no jignesh falls or passing out spells. He has expressed ongoing concerns that this may be a side effect of his amiodarone therapy. For this reason he had reduced his amiodarone dose on his own a few weeks prior to his clinic visit from 100 mg daily to 50 mg daily. At the time of his visit on 02/12/18 I had directed him to completely discontinue the amiodarone and he has been off of it now in the interim time. He has remained on metoprolol tartrate 12.5 mg twice daily. He noted his most recent episode of atrial fibrillation was yesterday and lasted a few hours and then he felt himself go back into rhythm. He states that other than yesterday he has not had any significant subjective feelings of atrial fibrillation for the last few months. He had been admitted to [facility] in September 2017 for chest discomfort and hypertensive urgency. An echocardiogram revealed a new resting anterior wall motion abnormality and his ejection fraction was down to the 45 to 50% range. He therefore underwent cardiac catheterization on 09/24/2017 revealing patency of his previous circumflex coronary stent and a culprit 70 to 80% mid LAD lesion treated with a drug-eluting stent. He has remained on triple therapy with aspirin, clopidogrel, and Coumadin. He is not on an Arnold or an Arb due to past concerns of dizziness and hypotension. Physical Exam (per Admitting): General: no acute distress and stated age Eyes: conjunctiva are pink and non-injected, sclera clear Neck: normal jugular venous pulse, no hepatojugular reflux Chest: normal shape and normal respiratory effort Lungs: clear to auscultation and percussion Cardiac Exam: - regular heart sounds, no murmurs, rubs, or gallops Abdomen: abdomen soft, non-tender, no abnormal masses and no hepatosplenomegaly Musculoskeletal: no gait disturbance, no weakness Extremities: no edema and no cyanosis Neuro: grossly normal exam Psych: appropriate affect and insight. Hospital Course Impression: 1. Symptomatic PAF, suspected intolerance to amiodarone, and therefore the patient's amiodarone had been discontinued in advance of planned hospitalization for sotalol initiation (reverted to AF on 1231 am 02/26/18) 2. Borderline tachy hope syndrome 3. Stable CAD 4. DM2, diabetes controlled. 5. Chronic Coumadin therapy for stroke prophylaxis, INR subtherapeutic yesterday 02/26/18 at 1.8, and again today 02/27/18 with level of 1.9. Plan: Patient feeling well at present despite being in atrial fibrillation with controlled ventricular rate. He denies any of the dizziness that prompted this hospitalization. His corrected QT interval is within the acceptable range having received 7 doses of sotalol 80 mg 2 times per day. When he was in sinus rhythm, his heart rate sitting in a chair was 55 bpm, and slow to the 45 bpm range with sleep, but appropriately increased to a reasonable degree with walking. It is clear that the dosing of any rate control or AV oneila anitha is limited by baseline bradycardia and the patient feels much better with a rhythm control strategy as he immediately feels when he goes into atrial fibrillation and he feels poorly. This is consistent with his chronic long-standing history of paroxysmal atrial fibrillation. I do not think we can make the determination that the sotalol is not an effective treatment for him as it has just been started. In the past, he typically does go back into sinus rhythm spontaneously with his episodes. 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 Looking ahead, I plan to have him assessed as an outpatient by [facility] electrophysiology for discussion regarding candidacy for pulmonary vein isolation as perhaps that would allow us to maintain sinus rhythm while minimizing medication and medication related side effects. I reviewed sotalol dosage and use with him. It does not interact with his omeprazole. He was counseled that he needs to avoid other agents that prolong the QT interval specifically antibiotics such as quinolones and macrolides as this may cause an effect of increased QT interval with taking both of these agents together. The patient has a history of coronary artery disease. His most Recent Cardiac Catheterization Took Pl. in September, when he presented with angina in the setting of hypertension. His cardiac enzymes were negative but an echocardiogram revealed a new LAD territory wall motion abnormality. He therefore underwent cardiac catheterization revealing a culprit stenosis of the mid LAD. He therefore underwent drug-eluting stent placement with a 3 mm x 3 mm [place] drug-eluting stent in September,. He has since been on triple therapy with aspirin 81 mg daily, clopidogrel 75 mg daily, and warfarin 5 mg by mouth daily. He is considered to be at high risk for both thrombotic event in terms of cardio embolic stroke from paroxysmal atrial fibrillation and coronary artery disease. He is also considered to be at high bleeding risk with past history of ITP. His platelet count has been stable. At this point he has completed 5 months of dual antiplatelet therapy plus warfarin. I recommend that at this point we can discontinue his aspirin and continue ongoing therapy with clopidogrel 75 mg daily and Coumadin. He is not on an ACEI or an Arb due to past concerns of dizziness and hypotension. Plan for discharge home today with follow-up as scheduled with the undersigned and the anticoagulation clinic. He is to receive 7.5 mg of Coumadin today as compared to his typical dose of 5 mg. I have also placed a referral for an outpatient electrophysiology consultation as noted above. The patient is to keep his previously scheduled follow-up visit with me on 03/27/18 at 3:30 PM. He is to maintain follow-up with the anticoagulation clinic. Total time spent on discharge = 60 minutes, including coordinating care, preparing discharge instructions and discharge summary, and providing prescription for sotalol which was sent electronically to his pharmacy [facility] from his [employer] record. This includes examination of the patient, discharge planning, medication reconciliation, and communication with other providers. Discharge Instructions Keep your follow up visit with 03/27/2018 3:30 PM Provider: Itz Jimenez DO Department: Cardiology, [facility]
[2018-02-27 10:45] VITALS: BP 114/77; PULSE 62; TEMP 36.5; O2SAT 92
== END 2018-02-27 11:19 | disposition home or self-care (01) | DRG 310 ==
LOC: C.2T 09:26
PROVIDERS: ADMIT Specialist; ATTEND Specialist
DX: I48.0 Paroxysmal atrial fibrillation (principal); I25.10 Atherosclerotic heart disease of native coronary artery without angina pectoris; E11.9 Type 2 diabetes mellitus without complications; I10 Essential (primary) hypertension; Z88.0 Allergy status to penicillin; Z88.8 Allergy status to other drugs, medicaments and biological substances; Z79.84 Long term (current) use of oral hypoglycemic drugs; Z79.01 Long term (current) use of anticoagulants

== ENCOUNTER → 2018-05-20 | Outpatient (CLI) | payer OTHER ==
[~2018-05-20] MED LIST changes: -ASPI81TA28 PO; +BTP80 PO; -CRD200 PO; -LPR25 PO; -METF-384 PO; +OPTIRAY 320 IV PRN; +WARF5TAB7 PO
--- NOTE | 2018-05-20 15:31 | DIAGNOSTIC IMAGING REPORT ---
CT SCAN OF THE CHEST, ABDOMEN, AND PELVIS WITH IV CONTRAST CLINICAL HISTORY: Lymphoma. COMPARISON STUDY: CT scan of the chest, abdomen, and pelvis dated 08/06/2017. Chest CT dated 07/29/2010. TECHNIQUE: Following the IV administration of 93 of Optiray 320, CT scan of the chest, abdomen, and pelvis was performed from the thoracic inlet to the proximal femora. Images are reviewed in the axial, sagittal, and coronal planes. IV contrast was administered without complication. A dose lowering technique was utilized adhering to the principles of ALARA. CT DOSE: 756.97 mGy.cm FINDINGS: CHEST: Thyroid: Imaged portions of the thyroid gland are normal in size and attenuation. Thoracic aorta: There is mild atherosclerotic calcification of the thoracic aorta, which is normal in caliber and demonstrates standard 3-vessel arch anatomy. No dissection is seen. Pulmonary vasculature: The pulmonary trunk is normal in caliber. There are no filling defects identified in the central pulmonary vessels to indicate pulmonary embolus. Note that this examination was not protocoled for evaluation of the pulmonary arteries. Heart: The heart is enlarged and without pericardial effusion. The coronary arteries are densely calcified. Lungs and pleural spaces: There is a 7 mm pleural-based nodule at the right lung base seen on image #188 and a 5 mm pleural-based nodule in the right middle lobe on image #168. Pleural-based nodularity seen in the LEFT lower lobe along the major fissure on image #129. These are unchanged from 2010 and of doubtful significance. No airspace consolidation or pleural effusion is identified. The trachea and central airways are clear. Mediastinum: There is no mediastinal lymphadenopathy. Sarah: Clear. Axillae: There is no axillary lymphadenopathy. Bony thorax: The skeletal structures are osteopenic. No lytic or blastic lesions are identified. Postoperative changes partially visualized in the left humeral head. Arthritic change is seen in the shoulders. ABDOMEN AND PELVIS: Liver: The contrast-enhanced liver is normal in size, contour, and attenuation. There is no intrahepatic or ductal dilatation. The hepatic veins and portal veins are patent. A subcentimeter hypodensity in the inferior right lobe seen on image #160 likely represents a cyst but is too small for definitive characterization. Gallbladder: Surgically absent noting clips in the gallbladder fossa. Spleen: Normal in size and attenuation measuring 12 cm in length. Pancreas: Moderately atrophic and grossly unremarkable. Adrenal glands: Unremarkable. Kidneys: The contrast enhanced kidneys demonstrate cortical atrophy and are without hydronephrosis. The kidneys enhance symmetrically. Abdominal vasculature: The abdominal aorta is normal in course and caliber noting moderate to advanced atherosclerotic calcification. Bowel: There is moderate to advanced colonic diverticulosis without CT evidence of acute diverticulitis. No bowel obstruction is seen. The appendix is well-visualized and normal. Peritoneum: There is no intraperitoneal free air or abdominal ascites. Lymphadenopathy: None. Pelvic viscera: There is median lobe hypertrophy of the prostate gland. The bladder is partially decompressed and grossly unremarkable. Surgical clips are noted along the spermatic cord. Skeletal structures: The skeletal structures are osteopenic. Mild lumbosacral spondylosis is observed. No lytic or blastic lesions are seen. There is a right hemitransitional lumbosacral segment. IMPRESSION: 1. There are no pathologically enlarged lymph nodes identified in the chest, abdomen, or pelvis. 2. The spleen is normal in size. 3. Cardiomegaly. 4. The lungs are clear. 5. No acute infectious or inflammatory findings are seen in the abdomen or pelvis. 6. Moderate to advanced colonic diverticulosis without CT evidence of acute diverticulitis. 7. Additional findings as above. Electronically signed by: Gareth Rosado M.D. 05/20/2018 3:29 PM Dictated Date/Time: 05/20/2018 3:14 PM
== END | disposition home or self-care (01) ==
LOC: C.CTS 14:43
PROVIDERS: ATTEND Internal Medicine Hematology & Oncology
DX: C82.88 Other types of follicular lymphoma, lymph nodes of multiple sites (principal)

== ENCOUNTER 2018-12-11 19:27 | Inpatient (IN) ==
[2018-12-11 20:08] LABS: Basophils # (auto) 0.02 K/uL (0-0.2); Basophils % (auto) 0.1 %; Eosinophils # (auto) 0.15 K/uL (0-0.5); Eosinophils % (auto) 1.1 %; Hematocrit (blood only) 36.8 % (42-52); Hemoglobin 12.2 g/dL (14.0-18.0); Immature Granulocytes # (auto) 0.06 K/uL (0.00-0.02); Immature Granulocytes % (auto) 0.4 %; Lymphocytes # (auto) 1.14 K/uL (1.2-3.4); Mean Corpuscular Hgb Conc 33.2 g/dL (32-36); Mean Corpuscular Volume 90.4 fL (80-100); Mean Platelet Volume 10.4 fL (7.4-10.4); Monocytes # (auto) 2.21 K/uL (0.11-0.59); Monocytes % (auto) 15.5 %; Neutrophils # (auto) 10.68 K/uL (1.4-6.5); Neutrophils % (auto) 74.9 %; Platelet Count 345 K/uL (130-400); RDW Coefficient of Variation 13.2 % (11.5-14.5); RDW Standard Deviation 43.4 fL (36.4-46.3); Red Blood Count 4.07 M/uL (4.7-6.1); White Blood Count 14.26 K/uL (4.8-10.8)
[2018-12-11 20:17] LABS: INR 2.3 (0.9-1.1); Prothrombin Time 22.6 Seconds (9.0-12.0)
--- NOTE | 2018-12-11 20:17 | XRay Report ---
XR chest 1V portable HISTORY: weakness COMPARISON: Chest 09/23/2018. FINDINGS: The heart remains enlarged. No pneumothorax. No pleural effusions. No focal lung consolidat ions to suggest pneumonia. No evidence for pulmonary edema. IMPRESSION: Stable mild cardiomegaly. Electronically signed by: Michael oGmez M.D. 12/11/2018 8:15 PM
--- NOTE | 2018-12-11 20:17 | XRay Report ---
KUB HISTORY: Weakness. filter in IVC COMPARISON: Abdomen and pelvis CT 05/20/2018. FINDINGS: Mildly nondilated gas-filled loops of large and small bowel. No evidence for bowel obstruct ion. Suspect trace bilateral pleural effusions. The heart is enlarged. No renal calculi. No ureteral calculi. No pneumoperitoneum or pneumatosis. Prior cholecystectomy. IMPRESSION: 1. No evidence for bowel obstruction. 2. Trace bilateral pleural effusions. Electronically signed by: Michael Gomez M.D. 12/11/2018 8:21 PM
[2018-12-11 20:28] LABS: Partial Thromboplastin Ratio 1.6; Partial Thromboplastin Time 44.1 Seconds (21.0-31.0)
[2018-12-11 20:42] LABS: Alanine Aminotransferase 18 U/L (12-78); Albumin Globulin Ratio 0.8 (0.9-2); Alkaline Phosphatase 84 U/L (45-117); BUN Creatinine Ratio 9.6 (10-20); Bilirubin,Total 1.3 mg/dl (0.2-1); Blood Urea Nitrogen 10 mg/dl (7-18); Calcium 8.5 mg/dl (8.5-10.1); Carbon Dioxide 25 mmol/L (21-32); Chloride 97 mmol/L (98-107); Creatinine Clr Calc Pharmacy 61.9 ml/min; Est GFR (African American) 79.2; Est GFR (Non-African American) 68.3; Globulin 3.9 gm/dl (2.5-4.0); Glucose 183 mg/dl (70-99); Sodium 130 mmol/L (136-145); Total Protein 6.9 gm/dl (6.4-8.2); Troponin I < 0.015 ng/ml (0-0.045)
--- NOTE | 2018-12-11 21:08 | Emergency Department Note ---
Entered by Carolina Moreland acting as a scribe for History of Present Illness General Chief complaint: Chest Pain Stated complaint: CHEST PAIN, A FIB, FLUID ON HEART Time Seen by Provider: 12/11/18 19:35 Source: patient Mode of arrival: ambulatory Limitations: no limitations History of Present Illness Provider complaint: chest pain Onset (ago): week(s) 2 Location: chest Pain Consistency: + intermittent Maximum Pain Intensity: 10 Current Pain Intensity: 5 Quality: + other (post-op) Associated symptoms: + denies other symptoms (diarrhea), + loss of appetite and + shortness of breath; no fever/chills and no nausea/vomiting The patient is a 73 year old male who presents to the Emergency Room with complaints of an intermittent chest pain that began 2 weeks ago. The patient reports that he underwent a watchman procedure 2 weeks ago for his history of a fib. He states that he has since had pain in the center of his chest with associated shortness of breath. Per family, the patient was evaluated yesterday by the manager manufacturing where he had an echo performed which showed fluid around the heart. The family notes that this fluid is believed to be secondary to his recent procedure. The patient denies any fevers, vomiting or diarrhea but reports he has had a dry cough. Per family, the patient has also had a loss of appetite. The patient states that he is currently on 3 three blood thinners. He notes that he has a history of an NE and has had three stents placed. Echo test results performed on 12/10: EF was 58%, moderate sized pericardial effusion was noted, 5-10 mm. No evidence of tamponade. Compared to study on Dec 01, effusion has increased in size. Home Medications Home Medications Medication Instructions Recorded Confirmed Type amlodipine 5 mg PO QAM 08/27/18 12/11/18 History clopidogrel 75 mg PO QAM 08/27/18 12/11/18 History cyanocobalamin (vitamin B-12) 1,000 mcg PO QAM 08/27/18 12/11/18 History dapsone 25 mg PO QPM 08/27/18 12/11/18 History docusate sodium [Colace] 100 mg PO BID PRN 08/27/18 12/11/18 History fluticasone 2 spray INTRANASAL HS 08/27/18 12/11/18 History glipizide 20 mg PO BIDM 08/27/18 12/11/18 History metformin 1,000 mg PO BID 08/27/18 12/11/18 History wtmuwuoxlklp-bgyz-twnkf acid 1 tab PO QAM 08/27/18 12/11/18 History [Multi Complete with Iron] omeprazole 20 mg PO QAM 08/27/18 12/11/18 History peg [id number] [Eye 1 drp OPB BID PRN 08/27/18 12/11/18 History Drop Tears] warfarin 2.5 mg PO WK 08/27/18 12/11/18 History warfarin 5 mg PO 6XWK 08/27/18 12/11/18 History acetaminophen [Acetaminophen Extra 1,000 mg PO Q8 PRN 09/25/18 12/11/18 History Strength] aspirin 81 mg PO HS 09/25/18 12/11/18 History atorvastatin 40 mg PO HS 09/25/18 12/11/18 History betamethasone dipropionate 1 applic TOPICAL BID PRN 09/25/18 12/11/18 History nitroglycerin [Nitrostat] 1 dose SUBLINGUAL UD PRN 09/25/18 12/11/18 History metoprolol succinate [Toprol XL] 50 mg PO BID 12/11/18 12/11/18 History tamsulosin [Flomax] 0.4 mg PO DAILY 12/11/18 12/11/18 History Allergies Allergy/AdvReac Type Severity Reaction Status Date / Time hydroxyzine Allergy Severe Anaphylaxis Verified 12/11/18 20:04 Gold Salts Allergy Intermediate hives Verified 12/11/18 20:04 losartan Allergy Intermediate hypotension Verified 12/11/18 20:04 triamcinolone Allergy Intermediate "pustules/r Verified 12/11/18 20:04 edness" Penicillins Allergy Mild RASH Verified 12/11/18 20:04 wheat Allergy Mild Rash Verified 12/11/18 20:04 Past Med/Surg History Medical History Atrial fibrillation Myocardial infarction 2013, 2016 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 " On 07/25/11 18:09 Diaenlys Mack wrote "with neuropathy " On 07/25/11 18:09 Dianelys Mack wrote "with neuropathy " Diverticular disease of colon (Chronic) History of non-Hodgkin's lymphoma (Chronic) History of adenomatous polyp of colon (Chronic) Unstable angina (Acute 12/11/13) Autoimmune hemolytic anemia GERD (gastroesophageal reflux disease) Hearing deficit Hyperlipidemia Hypertension Osteoarthritis Thrombocytopenia Surgical History Status post cholecystectomy (Chronic) "1994" Status post vasectomy (Chronic) History of arthroscopy of left shoulder History of bilateral cataract extraction History of cardiac cath 2013, 2016, 09/12/2018 History of cardiac radiofrequency ablation 04/2018 @ [facility] History of colonoscopy History of esophagogastroduodenoscopy (EGD) History of heart artery stent 2013 x1, 2016x1, 09/12/2018 x1(drug eluting stent @ [facility]) History of tonsillectomy and adenoidectomy History of tooth extraction wisdom teeth History of umbilical hernia repair Hx of exploratory laparotomy Family History Sister Family history of diabetes mellitus Family history of reaction to anesthesia difficulty waking Mother Family history of diabetes mellitus Other Heart attack History of cholecystectomy Social History Preferred Language: Croatian current occupation: Retired Feels Safe at Home: Yes Smoking Status: Former smoker Hx Alcohol Use: No Hx Substance Use: No Review of Systems See HPI for pertinent positives & negatives. and A total of 10 systems reviewed and were otherwise negative Physical Exam Vital Signs Vital Signs - 24 hr 12/11/18 19:30 12/11/18 19:51 12/11/18 20:00 Temperature 36.8 C Temperature Source Oral Sepsis Recent Fever Within 48 Hours No Sepsis New/Unexplained Change in Mental Status No Sepsis Action Taken by Nursing No Action Required Pulse Rate 86 91 H 102 H Pulse Rate [Apical] Pulse Rate from SpO2 Sensor Pulse Rhythm Regular Pulse Strength Normal Respiratory Rate 20 29 H 18 Respiratory Effort / Characteristics Non-Labored Spontaneous Respiratory Depth Normal Respiratory Pattern Regular Blood Pressure 137/81 Blood Pressure [Right Arm] Blood Pressure Mean 99 Blood Pressure Mean [Right Arm] Blood Pressure Position Sitting Blood Pressure Position [Right Arm] Pulse Oximetry 95 Oxygen Delivery Method Room Air 12/11/18 20:09 12/11/18 20:12 12/11/18 20:15 Temperature Temperature Source Sepsis Recent Fever Within 48 Hours Sepsis New/Unexplained Change in Mental Status Sepsis Action Taken by Nursing Pulse Rate 91 H 90 Pulse Rate [Apical] 91 H Pulse Rate from SpO2 Sensor 94 H Pulse Rhythm Pulse Strength Respiratory Rate 22 21 25 H Respiratory Effort / Characteristics Non-Labored Respiratory Depth Normal Respiratory Pattern Regular Blood Pressure 110/86 Blood Pressure [Right Arm] 110/86 Blood Pressure Mean 94 Blood Pressure Mean [Right Arm] 94 Blood Pressure Position Blood Pressure Position [Right Arm] Sitting Pulse Oximetry 94 94 93 Oxygen Delivery Method Room Air Room Air 12/11/18 20:30 12/11/18 20:45 12/11/18 21:00 Temperature Temperature Source Sepsis Recent Fever Within 48 Hours Sepsis New/Unexplained Change in Mental Status Sepsis Action Taken by Nursing Pulse Rate 90 91 H 91 H Pulse Rate [Apical] Pulse Rate from SpO2 Sensor 88 93 H 96 H Pulse Rhythm Pulse Strength Respiratory Rate 27 H 25 H 23 Respiratory Effort / Characteristics Respiratory Depth Respiratory Pattern Blood Pressure Blood Pressure [Right Arm] Blood Pressure Mean Blood Pressure Mean [Right Arm] Blood Pressure Position Blood Pressure Position [Right Arm] Pulse Oximetry Oxygen Delivery Method 12/11/18 21:06 12/11/18 21:15 12/11/18 21:30 Temperature Temperature Source Sepsis Recent Fever Within 48 Hours Sepsis New/Unexplained Change in Mental Status Sepsis Action Taken by Nursing Pulse Rate 94 H 96 H 95 H Pulse Rate [Apical] Pulse Rate from SpO2 Sensor 94 H 97 H 95 H Pulse Rhythm Pulse Strength Respiratory Rate 29 H 22 28 H Respiratory Effort / Characteristics Respiratory Depth Respiratory Pattern Blood Pressure 106/77 117/72 Blood Pressure [Right Arm] Blood Pressure Mean 86 87 Blood Pressure Mean [Right Arm] Blood Pressure Position Blood Pressure Position [Right Arm] Pulse Oximetry 92 93 96 Oxygen Delivery Method Room Air GENERAL: Patient is in no acute distress. HEENT: No acute trauma, normocephalic atraumatic, mucous membranes moist, no nasal congestion, no scleral icterus. NECK: No stridor, no adenopathy, no meningismus, trachea is midline. LUNGS: Clear to auscultation bilaterally, no wheeze, no rhonchi, breath sounds equal. HEART: Irregular, no murmurs, normal rate. ABDOMEN: Soft, nontender, bowel sounds positive, no hernias, no peritonitis. EXTREMITIES: No cyanosis. Mild bilateral pedal edema, full range of motion of all the joints without pain or difficulty, no signs for acute trauma. NEUROLOGIC: Oriented x 3, no acute motor or sensory deficits, no focal weakness. SKIN: No rash, no jaundice, no diaphoresis. Course 1936: Past medical records reviewed. The patient was evaluated in room C11B, and a complete history and physical examination were performed. 1953: I reviewed the patient's case with Dr. El - Cardiology. He explains that the patient had a left atrial appendage occluder performed where a hole is punctured in the atrial septum. He reports that there is no need for an emergent echo tonight, however, he does recommend admission as well as basic labs and a chest x-ray. 2049: I reviewed the patient's case with Dr. Tanner Matthews [facility] Hospitalist. He will evaluate the patient for further management. 2054: I updated the patient on today's findings and they are agreeable with the treatment plan. Administered Medications Medical Decision Making Differential Diagnosis Differential Diagnosis includes: pericardial effusion, pericardial tamponade, angina, NE, anemia, CHF, and electrolyte imbalance. Medical Records Attestation: I reviewed the patient's medical records. Home Medications Current Medication List: was personally reviewed by me Laboratory Data Attestation: I reviewed the patient's lab results. Result diagrams: 12/11/18 19:51 12/11/18 19:51 Lab Results 12/11/18 12/11/18 12/11/18 Range/Units 19:51 19:51 19:51 WBC 14.26 H (4.8-10.8) K/uL RBC 4.07 L (4.7-6.1) M/uL Hgb 12.2 L (14.0-18.0) g/dL Hct 36.8 L (42-52) % MCV 90.4 (80-100) fL MCH 30.0 (25-34) pg MCHC 33.2 (32-36) g/dL RDW Std Deviation 43.4 (36.4-46.3) fL RDW Coeff of [place] 13.2 (11.5-14.5) % Plt Count 345 (130-400) K/uL MPV 10.4 (7.4-10.4) fL Immature Gran % (Auto) 0.4 % Neut % (Auto) 74.9 % Lymph % (Auto) 8.0 % [place] % (Auto) 15.5 % Eos % (Auto) 1.1 % Baso % (Auto) 0.1 % Immature Gran # (Auto) 0.06 H (0.00-0.02) K/uL Neut # (Auto) 10.68 H (1.4-6.5) K/uL Lymph # (Auto) 1.14 L (1.2-3.4) K/uL [place] # (Auto) 2.21 H (0.11-0.59) K/uL Eos # (Auto) 0.15 (0-0.5) K/uL Baso # (Auto) 0.02 (0-0.2) K/uL PT 22.6 H (9.0-12.0) Seconds INR 2.3 H (0.9-1.1) APTT (21.0-31.0) Seconds PTT Ratio Sodium 130 L (136-145) mmol/L Potassium (3.5-5.1) mmol/L Chloride 97 L (98-107) mmol/L Carbon Dioxide 25 (21-32) mmol/L Anion Gap 9.0 (3-11) BUN 10 (7-18) mg/dl Creatinine 1.06 (0.6-1.4) mg/dl Est Cr Clr Drug Dosing 61.9 ml/min Est GFR ( Amer) 79.2 Est GFR (Non-Af Amer) 68.3 BUN/Creatinine Ratio 9.6 L (10-20) Glucose 183 H (70-99) mg/dl Calcium 8.5 (8.5-10.1) mg/dl Magnesium (1.8-2.4) mg/dl Total Bilirubin 1.3 H (0.2-1) mg/dl AST (15-37) U/L ALT 18 (12-78) U/L Alkaline Phosphatase 84 (45-117) U/L Troponin I < 0.015 (0-0.045) ng/ml Total Protein 6.9 (6.4-8.2) gm/dl Albumin 3.0 L (3.4-5.0) gm/dl Globulin 3.9 (2.5-4.0) gm/dl Albumin/Globulin Ratio 0.8 L (0.9-2) TSH 1.010 (0.300-4.500) uIu/ml 12/11/18 Range/Units 19:51 WBC (4.8-10.8) K/uL RBC (4.7-6.1) M/uL Hgb (14.0-18.0) g/dL Hct (42-52) % MCV (80-100) fL MCH (25-34) pg MCHC (32-36) g/dL RDW Std Deviation (36.4-46.3) fL RDW Coeff of [place] (11.5-14.5) % Plt Count (130-400) K/uL MPV (7.4-10.4) fL Immature Gran % (Auto) % Neut % (Auto) % Lymph % (Auto) % [place] % (Auto) % Eos % (Auto) % Baso % (Auto) % Immature Gran # (Auto) (0.00-0.02) K/uL Neut # (Auto) (1.4-6.5) K/uL Lymph # (Auto) (1.2-3.4) K/uL [place] # (Auto) (0.11-0.59) K/uL Eos # (Auto) (0-0.5) K/uL Baso # (Auto) (0-0.2) K/uL PT (9.0-12.0) Seconds INR (0.9-1.1) APTT 44.1 H (21.0-31.0) Seconds PTT Ratio 1.6 Sodium (136-145) mmol/L Potassium (3.5-5.1) mmol/L Chloride (98-107) mmol/L Carbon Dioxide (21-32) mmol/L Anion Gap (3-11) BUN (7-18) mg/dl Creatinine (0.6-1.4) mg/dl Est Cr Clr Drug Dosing ml/min Est GFR ( Amer) Est GFR (Non-Af Amer) BUN/Creatinine Ratio (10-20) Glucose (70-99) mg/dl Calcium (8.5-10.1) mg/dl Magnesium (1.8-2.4) mg/dl Total Bilirubin (0.2-1) mg/dl AST (15-37) U/L ALT (12-78) U/L Alkaline Phosphatase (45-117) U/L Troponin I (0-0.045) ng/ml Total Protein (6.4-8.2) gm/dl Albumin (3.4-5.0) gm/dl Globulin (2.5-4.0) gm/dl Albumin/Globulin Ratio (0.9-2) TSH (0.300-4.500) uIu/ml Imaging Data Radiologist's Impression: Radiology results as stated below per my review and the radiologist's interpretation: XR chest 1V portable HISTORY: weakness COMPARISON: Chest 09/23/2018. FINDINGS: The heart remains enlarged. No pneumothorax. No pleural effusions. No focal lung consolidations to suggest pneumonia. No evidence for pulmonary edema. IMPRESSION: Stable mild cardiomegaly. Electronically signed by: Michael Gomez M.D. 12/11/2018 8:15 PM KUB HISTORY: Weakness. filter in IVC COMPARISON: Abdomen and pelvis CT 05/20/2018. FINDINGS: Mildly nondilated gas-filled loops of large and small bowel. No evidence for bowel obstruction. Suspect trace bilateral pleural effusions. The heart is enlarged. No renal calculi. No ureteral calculi. No pneumoperitoneum or pneumatosis. Prior cholecystectomy. IMPRESSION: 1. No evidence for bowel obstruction. 2. Trace bilateral pleural effusions. Electronically signed by: Michael Gomez M.D. 12/11/2018 8:21 PM ECG Data Attestation: I personally reviewed and interpreted this ECG as follows: Indication: chest pain Rate (beats per minute): 98 Rhythm: atrial fibrillation Findings: no PVC and no ST elevation Comparison ECG Date: from (23-SEP-2018) Change: the following changes noted (a-fib is now present) Blood Pressure Blood Pressure Findings: Normal blood pressure Blood Pressure Disposition: did not require urgent referral MDM Narrative There is a mild leukocytosis, this could be consistent with infection or the stress of his current situation. He does have a mild anemia, nothing critical. INR is elevated at 2.3, consistent with his Coumadin use. Sodium is somewhat low at 130, no kidney failure. EKG shows A. fib, no acute ischemia. Cardiac enzyme testing x1 is not consistent with acute cardiac injury. No hepatitis by our testing. The patient appears to be in a euthyroid state. Chest x-ray does show some cardiomegaly, the heart does seem larger than previous films consistent with his diagnosed pericardial effusion. KUB did not show bowel obstruction. The patient presents with precordial chest pain and exertional shortness of breath. He has a diagnosed pericardial effusion from a procedure performed a few weeks ago. The effusion has enlarged based on a recent cardiac echo. I did review the echo results. I spoke to cardiology. The patient requires a hospital stay and monitoring. Whether or not he will require a drainage procedure is unclear. He certainly does feel worse and he did just even last week. I did speak to the patient and his family about my findings, I spoke with the on-call hospitalist. Case management has been involved. Impression & Plan Pericardial effusion, Chest pain, Weakness, SOB (shortness of breath) Discharge Plan Visit Data Chief Complaint: Chest Pain Stated Complaint: CHEST PAIN, A FIB, FLUID ON HEART ED Provider: Gareth Villareal Discharge Problem: Pericardial effusion, Chest pain, Weakness, SOB (shortness of breath) Patient Disposition: Being Evaluated by Hospitalist Forms Stand Alone Forms: Call Back Authorization, [facility], Important Visit Information Prescriptions Prescriptions: No Action glipizide 10 mg tablet 20 mg PO BIDM RF: 0 cyanocobalamin (vitamin B-12) 1,000 mcg Tablet 1,000 mcg PO QAM RF: 0 clopidogrel 75 mg tablet 75 mg PO QAM RF: 0 amlodipine 5 mg tablet 5 mg PO QAM RF: 0 warfarin 5 mg tablet 5 mg PO [id number] RF: 0 warfarin 5 mg tablet 2.5 mg PO WK RF: 0 dapsone 25 mg tablet 25 mg PO QPM RF: 0 docusate sodium [Colace] 100 mg Capsule 100 mg PO BID PRN (Reason: Constipation) RF: 0 omeprazole 20 mg capsule,delayed release(DR/EC) 20 mg PO QAM RF: 0 fluticasone 50 mcg/actuation spray,suspension 2 spray Intranasal HS RF: 0 metformin 500 mg tablet extended release 24 hr 1,000 mg PO BID RF: 0 Eye Drop Tears 1-0.2-0.2 % Drops 1 drp OPB BID PRN (Reason: Dry Eye(S)) RF: 0 Multi Complete with Iron 18-400 mg-mcg Tablet 1 tab PO QAM RF: 0 metoprolol succinate [Toprol XL] 50 mg tablet extended release 24 hr 50 mg PO BID RF: 0 tamsulosin [Flomax] 0.4 mg capsule 0.4 mg PO DAILY RF: 0 atorvastatin 40 mg Tablet 40 mg PO HS RF: 0 aspirin 81 mg Tablet,Delayed Release (Dr/Ec) 81 mg PO HS RF: 0 acetaminophen [Acetaminophen Extra Strength] 500 mg Tablet 1,000 mg PO Q8 PRN (Reason: Pain) RF: 0 nitroglycerin [Nitrostat] 0.4 mg Tablet, Sublingual 1 dose Sublingual UD PRN (Reason: Angina) RF: 0 betamethasone dipropionate 0.05 % Ointment 1 applic TOPICAL BID PRN (Reason: Rash) RF: 0 Referrals Referrals: Noble King DO [Primary Care Provider] - Discharge Problem: Chest pain Qualifiers: Chest pain type: precordial pain Qualified Code(s): R07.2 - Precordial pain The scribe's documentation has been prepared under my direction and personally reviewed by me in its entirety. I confirm that the note above accurately reflects all work, treatment, procedures, and medical decision making performed by me.
[2018-12-11 22:22] LABS: Magnesium 1.9 mg/dl (1.8-2.4)
[2018-12-11] MEDS ORDERED: ALUMINUM/MAGNESIUM SUSP 30 ML UDC PO PRN (22:49)
[2018-12-11] MEDS ORDERED: DOCUSATE SODIUM 100 MG CAP PO PRN (22:49)
[2018-12-11] MEDS ORDERED: BETAMETHASONE DIP AUG 0.05% OINT 15 GM TUBE TOP PRN (22:49)
[2018-12-11] MEDS ORDERED: ACETAMINOPHEN 325 MG TAB PO PRN (22:49)
[2018-12-11] MEDS ORDERED: ONDANSETRON INJ 2 MG/ML 2 ML VIAL IV PRN (22:49)
[2018-12-11] MEDS ORDERED: ACETAMINOPHEN 500 MG TAB PO PRN (22:49)
[2018-12-11] MEDS ORDERED: SODIUM CHLORIDE 0.9% 1000ML 1,000 ML IV SCH (22:49)
[2018-12-11] MEDS ORDERED: NITROGLYCERIN SL 0.4 MG/TAB TAB SL PRN ×2 (22:49)
--- NOTE | 2018-12-12 00:53 | History and Physical Report ---
DATE OF ADMISSION: 12/11/2018 CHIEF COMPLAINT: Chest pain, shortness of breath. HISTORY OF PRESENT ILLNESS: This is a 73-year-old male with past medical history significant for diabetes, hyperlipidemia, paroxysmal atrial fibrillation, history of CAD status post stent, hypertension, pericardial effusion, history of diverticulitis of colon, GERD, history of urinary retention, polyneuropathy, history of ITP, history of non-Hodgkin's lymphoma status post chemo in remission presents with chest pain and shortness of breath. As per cardiac note, the patient has history of atrial fibrillation and coronary artery disease. He underwent pulmonary vein isolation procedure on 05/06/2018 with cryoablation and with CHADS-VASc score of 5, he also remained on Coumadin. He has history of CAD status post stents in 2013 and again in 2017. He was initially on triple anticoagulation therapy. Aspirin was stopped and subsequently the patient developed instent restenosis. He had recurrent angina. He underwent cardiac catheterization on 09/12/2018 and was found to have restenosis in the LAD as well as secondary lesion in the mid LAD. Two stents were placed and has since continued to remain on Coumadin, Plavix, and aspirin. Was decided to keep him on dual antiplatelet therapy indefinitely and planned watchman implantation and to hopefully stop Coumadin. Eventually patient is status post Watchman implantation on 12/03/2018 and is supposed to get CAITLIN done in January and wean off the Coumadin, but since the Watchman's implantation, the patient developed small pericardial effusion and recurrence of atrial fibrillation. As per patient, since then he is in AFib and since then he is having chest pain on exertion and also shortness of breath on exertion. A few days ago, he was not even able to participate in therapy because of the AFib and chest pain and shortness of breath. Says chest pain is in the middle of the chest, pressure like feeling. While resting, it is okay, but when ambulating, it becomes severe as well as some shortness of breath. Denies any cough. No sweating. Has some dizziness when he gets up. No headaches, no blurred vision, no earache, no runny nose, no sore throat, no difficulty swallowing, no nausea, no abdominal pain. Appetite is not that great. Not sleeping well last few days because he was waking up with chest pains. Normal bowel and bladder movements. No hematuria, no burning micturition. No hematochezia or melena. Has chromic lower extremity edema. Currently resting comfortably. The patient saw his packer fuser yesterday. An echo was done that showed his pericardial effusion was increased to moderate range, but not in tamponade, but because he is still having this ongoing chest pain and shortness of breath and not feeling well, he came to the ER today. ALLERGIES: HYDROXYZINE, GOLD SAUCE, LOSARTAN, TRIAMCINOLONE, PENICILLINS, WHEAT. PAST MEDICAL HISTORY: As mentioned above. PAST SURGICAL HISTORY: Upper GI endoscopy, cardiac catheterization with status post stent placement, colonoscopy with biopsy, cholecystogram for gallbladder with contrast, percutaneous closure of left atrial appendage on 11/27/2018, cataract surgery, tonsillectomy, adenoidectomy, shoulder fracture repair, umbilical hernia repair, vasectomy. MEDICATIONS: The patient is currently on Toprol-XL 50 mg p.o. b.i.d., Flomax 0.4 mg p.o. at bedtime, amlodipine 5 mg p.o. daily, Lipitor 40 mg p.o. daily, omeprazole 20 mg p.o. b.i.d., Coumadin as directed, betamethasone dipropionate 0.05% ointment apply twice daily, nitroglycerin 0.4 mg sublingual p.r.n., aspirin 81 mg p.o. daily, glipizide 20 mg p.o. b.i.d., multivitamins 1 tablet daily, metformin ER 1000 mg p.o. b.i.d., Plavix 75 mg p.o. daily, dapsone 25 mg p.o. daily, Tylenol 1000 mg p.o. q. 8 hours p.r.n., Flonase 2 sprays into each nostril daily, cyanocobalamin 1000 mcg p.o. daily, lubricant eyedrops as needed, Colace 100 mg p.o. daily. FAMILY HISTORY: Significant for sister has ovarian cancer, breast cancer, and diabetes. Brother has diabetes. Father has CO. Brother has heart disorder and lung disorder. SOCIAL HISTORY: . Former smoker, quit in 1992. Smoked 1 pack a day for 35 years. No alcohol use, no drug use. REVIEW OF SYMPTOMS: As per HPI. Rest of the review of systems negative. PHYSICAL EXAMINATION: GENERAL: The patient is of moderate built, not in acute distress. VITAL SIGNS: Temperature 36.8, pulse 95, respiratory rate 20s, blood pressure 117/72, oxygen 96% room air. HEENT: No pallor, no icterus. Pupils equal, round, and react to light. NECK: No JVD, no neck masses, no carotid bruits. CARDIOVASCULAR: S1, S2 heard, irregular rhythm. No murmurs. RESPIRATORY SYSTEM: Normal AP diameter. No accessory muscle use. Mild bibasilar crackles present. No wheezing. ABDOMEN: Soft, bowel sounds present. Nontender. No distention. CENTRAL NERVOUS SYSTEM: Cranial nerves II-XII grossly intact, nonfocal. EXTREMITIES: Bilateral lower extremity edema present. No erythema seen. LABORATORIES: WBC 14, hemoglobin 12.2, hematocrit 36.8, platelets 345. PT 22.6, INR 2.3, APTT 44.1. Sodium 130, potassium pending, chloride 97, bicarbonate 25, BUN 10, creatinine 1.06, glucose 183, calcium 8.5, total bilirubin 1.3, ALT 18, alkaline phosphatase 84. Troponin I less than 0.015. TSH 1.0. KUB, no evidence for bowel obstruction, trace bilateral pleural effusions. Chest x-ray, stable mild cardiomegaly. EKG atrial fibrillation, low voltage QRS, at a rate of 98, nonspecific T-wave abnormalities. ASSESSMENT AND PLAN: This 73-year-old male presents with history of coronary artery disease status post in-stent restenosis and status post cardiac catheterization and restented, history of atrial fibrillation with history of pulmonary vein isolation, recent Watchman implantation and also post-procedure complications with pericardial effusion comes with ongoing chest pain and shortness of breath. 1. Chest pain, shortness of breath, pericardial effusion, moderate on the echocardiogram yesterday. Worsened from previous. It is going on since his procedure in 11/28/2018. Initial troponin is negative. EKG is showing atrial fibrillation. We will monitor on the tele floor. Serial cardiac enzymes, repeat echocardiogram. Cardiology was notified by the ER. Will consult cardiology for further recommendations. 2. Moderate pericardial effusion, on yesterday echo. Will repeat echocardiogram. Developed since procedure of Watchman implantation. Further management as per cardiology. Currently hemodynamically stable. 3. Atrial fibrillation. He has a history of pulmonary vein isolation procedure on 05/06/2018 with cryoablation and history of Watchman implantation on 11/28/2018. There is plan for weaning of Coumadin as the patient needs to be on aspirin and Plavix for his coronary artery disease as stopping the aspirin caused in stent stenosis. Since the Watchman implantation procedure, the patient is in afib. On Coumadin, INR is 2.3. Holding Coumadin for now for any other operative procedure. His heart rate is under control. We will closely monitor in tele floor. Cardiology consulted. 4. Shortness of breath on exertion, mostly from above. Chest x-ray no congestion or pneumonia. 5. Type 2 diabetes. Hold oral home p.o. medication. Patient is placed on insulin Lantus and ISS. currently NPO. Will monitor the blood sugars. Follow HbA1c levels. 6. History of hyperlipidemia, on statin. 7. History of coronary artery disease, status post stent. Continue his home medication of Toprol-XL, aspirin, Plavix, atorvastatin, and amlodipine. 8.Urinary retention requiring straight cath when he was admitted in [place]. Started on Flomax and he is doing okay. 10. Gastroesophageal reflux disease, on PPI. 11. Hypertension, on amlodipine, Toprol-XL. We will monitor the blood pressure . 12. History of non-Hodgkin's lymphoma status post chemo, currently in remission. 13. Hyponatremia Sodium 130. Gentle fluids with stop order for am. Follow labs 14. Lower extremity edema same as per patient. Will monitor. 15. Deep venous thrombosis prophylaxis. INR therapeutic. When INR is subtherapeutic, we will place him on heparin subcu. 16. Disposition. Closely monitor in the tele floor. Level 1 full code. MTDD
[2018-12-12 04:57] LABS: Basophils # (auto) 0.01 K/uL (0-0.2); Basophils % (auto) 0.1 %; Eosinophils # (auto) 0.11 K/uL (0-0.5); Eosinophils % (auto) 0.9 %; Hematocrit (blood only) 34.4 % (42-52); Hemoglobin 11.6 g/dL (14.0-18.0); Immature Granulocytes # (auto) 0.05 K/uL (0.00-0.02); Immature Granulocytes % (auto) 0.4 %; Lymphocytes # (auto) 1.45 K/uL (1.2-3.4); Lymphocytes % (auto) 11.5 %; Mean Corpuscular Hgb Conc 33.7 g/dL (32-36); Mean Corpuscular Volume 90.3 fL (80-100); Monocytes # (auto) 1.14 K/uL (0.11-0.59); Neutrophils # (auto) 9.87 K/uL (1.4-6.5); Neutrophils % (auto) 78.1 %; Platelet Count 317 K/uL (130-400); RDW Coefficient of Variation 13.2 % (11.5-14.5); RDW Standard Deviation 43.3 fL (36.4-46.3); Red Blood Count 3.81 M/uL (4.7-6.1); White Blood Count 12.63 K/uL (4.8-10.8)
[2018-12-12 05:21] LABS: INR 2.9 (0.9-1.1); Prothrombin Time 27.5 Seconds (9.0-12.0)
[2018-12-12 05:25] LABS: Blood Urea Nitrogen 11 mg/dl (7-18); Calcium 7.8 mg/dl (8.5-10.1); Carbon Dioxide 26 mmol/L (21-32); Chloride 100 mmol/L (98-107); Creatinine Clr Calc Pharmacy 66.3 ml/min; Est GFR (Non-African American) 74.2; Glucose 181 mg/dl (70-99); Magnesium 1.9 mg/dl (1.8-2.4); Potassium 4.3 mmol/L (3.5-5.1); Sodium 131 mmol/L (136-145)
[2018-12-12 05:30] LABS: Troponin I < 0.015 ng/ml (0-0.045)
[2018-12-12 06:35] LABS: Estimated Average Glucose 143 mg/dl; Hemoglobin A1C 6.6 % (4.5-5.6)
[2018-12-12 06:47] LABS: Appearance Urine Clear (Clear); Bacteria Urine Automated Negative (Negative); Bilirubin Urine Negative (Negative); Blood Urine Negative (Negative); Color Urine Dark Yellow; Epithelial Cell Urine Auto 20-30 /lpf (0-5); Glucose Urine UA 1+ (Negative); Ketones Urine 1+ (Negative); Leukocyte Esterase Urine Negative (Negative); Nitrite Urine Negative (Negative); Protein Urine Trace (Negative); RBC Urine Automated 0-4 /hpf (0-4); Specific Gravity Urine 1.031 (1.000-1.030); Urobilinogen Urine Negative (Negative); pH Urine 5.5 (4.5-7.5)
[2018-12-12] MEDS: INSULIN ASPART 100 UNITS/ML 3 ML PEN SC SCH ×2 (08:44→12:12)
[2018-12-12] MEDS ORDERED: CEROVITE ADV FORMULA TAB PO SCH (09:00)
[2018-12-12] MEDS ORDERED: CYANOCOBALAMIN 500 MCG TABLET (VITAMIN B-12) PO SCH (09:00)
[2018-12-12] MEDS ORDERED: METOPROLOL SUCC 50MG EXT REL TAB PO SCH (09:00)
[2018-12-12] MEDS ORDERED: CLOPIDOGREL BISULFATE 75 MG TAB PO SCH (09:00)
[2018-12-12] MEDS ORDERED: AMLODIPINE BESYLATE 5 MG TAB PO SCH (09:00)
[2018-12-12] MEDS ORDERED: PANTOprazole 40 MG TAB PO SCH (09:00)
--- NOTE | 2018-12-12 10:00 | Cardiology Consultation ---
Date of Consultation December 12, 2018 Assessment & Plan (1) Pericardial effusion: Enlarging pericardial effusion status post recent watchman procedure. Outside echocardiograms and unavailable for review however study performed today demonstrates significant change from description with 2 cm circumferential effusion mild right ventricular compromise with patient symptomaticexertional dyspnea and pleuritic discomfort. Patient is fully anticoagulated with warfarin but did not receive dose last evening Discussed findings in detail with patient I recommended transfer to tertiary center [facility] in [place] for ongoing management. Effusion may responded anti-inflammatories however size changes substantial and patient now symptomatic. May require percutaneous or surgical drainage Transfer center contacted and arrangements made (2) Atrial fibrillation: Atrial fibrillation rates controlled (3) Weakness: History of Present Illness Reason for Consultation: Exertional dyspnea enlarging pericardial effusion Requesting Physician: Dr. Nowak Attending Physician: Shanda Nowak MD History of Present Illness Patient is a 73-year-old male with very complex cardiac history includes ischemic heart disease prior coronary interventions most recent September 2018. Prior history of atrial fibrillation with pulmonary isolation ablation procedure in April 2018. Most recently underwent watchman device insertion on 12/03/2018 procedure notable for relapse and atrial fibrillation and postprocedural pericardial effusion. Patient has been followed as an outpatient with serial echocardiograms most recent study done on 12/10/2018 demonstrated enlarging effusion. Last evening patient presented to the emergency room with symptoms of pleuritic pain worsening shortness of breath marked fatigue. Echocardiogram repeated this morning demonstrates further enlargement of surrounding pericardial effusion now approaching 2 cm with mild right ventricular compromise. Patient denies fevers chills or sweats has low-grade cough with pleuritic discomfort on deep inspiration and cough. Notes no tachypalpitations syncope or near syncope notes no bleeding difficulties. He has been chronically anticoagulated with warfarin and INR remains at therapeutic at 2.9 this morning. Patient admits to mild chronic lower extremity edema no acute weight gain or orthopnea. Appetite's been generally poor overall sense of malaise over the last 1-2 weeks time Allergies Allergy/AdvReac Type Severity Reaction Status Date / Time hydroxyzine Allergy Severe Anaphylaxis Verified 12/11/18 20:04 Gold Salts Allergy Intermediate hives Verified 12/11/18 20:04 losartan Allergy Intermediate hypotension Verified 12/11/18 20:04 triamcinolone Allergy Intermediate "pustules/r Verified 12/11/18 20:04 edness" Penicillins Allergy Mild RASH Verified 12/11/18 20:04 wheat Allergy Mild Rash Verified 12/11/18 20:04 Home Medications Home Medications Medication Instructions Recorded Confirmed Type amlodipine 5 mg PO QAM 08/27/18 12/11/18 History clopidogrel 75 mg PO QAM 08/27/18 12/11/18 History cyanocobalamin (vitamin B-12) 1,000 mcg PO QAM 08/27/18 12/11/18 History dapsone 25 mg PO QPM 08/27/18 12/11/18 History docusate sodium [Colace] 100 mg PO BID PRN 08/27/18 12/11/18 History fluticasone 2 spray INTRANASAL HS 08/27/18 12/11/18 History glipizide 20 mg PO BIDM 08/27/18 12/11/18 History metformin 1,000 mg PO BID 08/27/18 12/11/18 History dymyaygflaal-yrhc-edlch acid 1 tab PO QAM 08/27/18 12/11/18 History [Multi Complete with Iron] omeprazole 20 mg PO QAM 08/27/18 12/11/18 History peg [id number] [Eye 1 drp OPB BID PRN 08/27/18 12/11/18 History Drop Tears] warfarin 2.5 mg PO WK 08/27/18 12/11/18 History warfarin 5 mg PO [id number] 08/27/18 12/11/18 History acetaminophen [Acetaminophen Extra 1,000 mg PO Q8 PRN 09/25/18 12/11/18 History Strength] aspirin 81 mg PO HS 09/25/18 12/11/18 History atorvastatin 40 mg PO HS 09/25/18 12/11/18 History betamethasone dipropionate 1 applic TOPICAL BID PRN 09/25/18 12/11/18 History nitroglycerin [Nitrostat] 1 dose SUBLINGUAL UD PRN 09/25/18 12/11/18 History metoprolol succinate [Toprol XL] 50 mg PO BID 12/11/18 12/11/18 History tamsulosin [Flomax] 0.4 mg PO DAILY 12/11/18 12/11/18 History Patient History Medical History Atrial fibrillation Myocardial infarction 2013, 2016 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 " On 07/25/11 18:09 Dianelys Mack wrote "with neuropathy " On 07/25/11 18:09 Dianelys Mack wrote "with neuropathy " Diverticular disease of colon (Chronic) History of non-Hodgkin's lymphoma (Chronic) History of adenomatous polyp of colon (Chronic) Unstable angina (Acute 12/11/13) Autoimmune hemolytic anemia GERD (gastroesophageal reflux disease) Hearing deficit Hyperlipidemia Hypertension Osteoarthritis Thrombocytopenia Surgical History Status post cholecystectomy (Chronic) "1994" Status post vasectomy (Chronic) History of arthroscopy of left shoulder History of bilateral cataract extraction History of cardiac cath 2013, 2016, 09/12/2018 History of cardiac radiofrequency ablation 04/2018 @ [facility] History of colonoscopy History of esophagogastroduodenoscopy (EGD) History of heart artery stent 2013 x1, 2016x1, 09/12/2018 x1(drug eluting stent @ [facility]) History of tonsillectomy and adenoidectomy History of tooth extraction wisdom teeth History of umbilical hernia repair Hx of exploratory laparotomy Family History Sister Family history of diabetes mellitus Family history of reaction to anesthesia difficulty waking Mother Family history of diabetes mellitus Other Heart attack History of cholecystectomy Social History Preferred Language: Serbian Communication Ability: Effective Wellness Assistant Required: No Beliefs That Will Affect Care: Anglican Current Living Situation: Alone current occupation: Retired Other Information That Helps Us Care for You: No Feels Safe at Home: Yes Safety Concerns: Feels Safe At This Time Smoking Status: Former smoker Hx Alcohol Use: No Hx Substance Use: No Review of Systems As per HPI otherwise negative Physical Exam Vital Signs (Past 24 Hours): Last Vital Signs Temp 37.2 C 12/12/18 07:19 Pulse 103 H 12/12/18 07:19 Resp 20 12/12/18 07:19 BP 115/83 12/12/18 07:19 Pulse Ox 92 12/12/18 07:19 Physical Exam: Vital signs as above there is an 8-12 mm pulsus paradoxus on manual blood pressure check HEENT exam is normal cephalic and atraumatic nares without discharge throat was clear Neck thin, there is jugular venous distention to 10 cm at 30 degrees Lungs diminished breath sounds at the bases with inspiratory splinting Cardiovascular exam: Irregularly irregular there is no audible murmur rub with distant heart sounds Abdomen: Soft nontender there is no palpable hepatosplenomegaly Extremities: 1+ bilateral lower extremity edema with intact distal pulses Neurologic exam: Mild anxiety but no acute complaints Results & Data Laboratory Results Laboratory Results - last 24 hr 12/11/18 12/11/18 12/11/18 19:51 19:51 19:51 WBC 14.26 H RBC 4.07 L Hgb 12.2 L Hct 36.8 L MCV 90.4 MCH 30.0 MCHC 33.2 RDW Std Deviation 43.4 RDW Coeff of [place] 13.2 Plt Count 345 MPV 10.4 Immature Gran % (Auto) 0.4 Neut % (Auto) 74.9 Lymph % (Auto) 8.0 [place] % (Auto) 15.5 Eos % (Auto) 1.1 Baso % (Auto) 0.1 Immature Gran # (Auto) 0.06 H Neut # (Auto) 10.68 H Lymph # (Auto) 1.14 L [place] # (Auto) 2.21 H Eos # (Auto) 0.15 Baso # (Auto) 0.02 PT 22.6 H INR 2.3 H APTT PTT Ratio Sodium 130 L Potassium Chloride 97 L Carbon Dioxide 25 Anion Gap 9.0 BUN 10 Creatinine 1.06 Est Cr Clr Drug Dosing 61.9 Est GFR ( Amer) 79.2 Est GFR (Non-Af Amer) 68.3 BUN/Creatinine Ratio 9.6 L Glucose 183 H POC Glucose Estimat Average Glucose Hemoglobin A1c Calcium 8.5 Magnesium Total Bilirubin 1.3 H AST ALT 18 Alkaline Phosphatase 84 Troponin I < 0.015 Total Protein 6.9 Albumin 3.0 L Globulin 3.9 Albumin/Globulin Ratio 0.8 L TSH 1.010 Urine Color Urine Appearance Urine pH Ur Specific [place] Urine Protein Urine Glucose (UA) Urine Ketones Urine Blood Urine Nitrite Urine Bilirubin Urine Urobilinogen Ur Leukocyte Esterase Urine WBC (Auto) Urine RBC (Auto) U Hyaline Cast (Auto) U Epithel Cells (Auto) Urine Bacteria (Auto) 12/11/18 12/11/18 12/11/18 19:51 21:48 22:57 WBC RBC Hgb Hct MCV MCH MCHC RDW Std Deviation RDW Coeff of [place] Plt Count MPV Immature Gran % (Auto) Neut % (Auto) Lymph % (Auto) [place] % (Auto) Eos % (Auto) Baso % (Auto) Immature Gran # (Auto) Neut # (Auto) Lymph # (Auto) [place] # (Auto) Eos # (Auto) Baso # (Auto) PT INR APTT 44.1 H PTT Ratio 1.6 Sodium Potassium 4.0 Chloride Carbon Dioxide Anion Gap BUN Creatinine Est Cr Clr Drug Dosing Est GFR ( Amer) Est GFR (Non-Af Amer) BUN/Creatinine Ratio Glucose POC Glucose Estimat Average Glucose Hemoglobin A1c Calcium Magnesium 1.9 Total Bilirubin AST 10 L ALT Alkaline Phosphatase Troponin I < 0.015 Total Protein Albumin Globulin Albumin/Globulin Ratio TSH Urine Color Urine Appearance Urine pH Ur Specific [place] Urine Protein Urine Glucose (UA) Urine Ketones Urine Blood Urine Nitrite Urine Bilirubin Urine Urobilinogen Ur Leukocyte Esterase Urine WBC (Auto) Urine RBC (Auto) U Hyaline Cast (Auto) U Epithel Cells (Auto) Urine Bacteria (Auto) 12/12/18 12/12/18 12/12/18 03:20 04:43 04:43 WBC RBC Hgb Hct MCV MCH MCHC RDW Std Deviation RDW Coeff of [place] Plt Count MPV Immature Gran % (Auto) Neut % (Auto) Lymph % (Auto) [place] % (Auto) Eos % (Auto) Baso % (Auto) Immature Gran # (Auto) Neut # (Auto) Lymph # (Auto) [place] # (Auto) Eos # (Auto) Baso # (Auto) PT 27.5 H INR 2.9 H APTT PTT Ratio Sodium 131 L Potassium 4.3 Chloride 100 Carbon Dioxide 26 Anion Gap 5.0 BUN 11 Creatinine 0.99 Est Cr Clr Drug Dosing 66.3 Est GFR ( Amer) 86.0 Est GFR (Non-Af Amer) 74.2 BUN/Creatinine Ratio 11.0 Glucose 181 H POC Glucose Estimat Average Glucose Hemoglobin A1c Calcium 7.8 L Magnesium 1.9 Total Bilirubin AST ALT Alkaline Phosphatase Troponin I < 0.015 Total Protein Albumin Globulin Albumin/Globulin Ratio TSH Urine Color Dark Yellow Urine Appearance Clear Urine pH 5.5 Ur Specific [place] 1.031 H Urine Protein Trace H Urine Glucose (UA) 1+ H Urine Ketones 1+ H Urine Blood Negative Urine Nitrite Negative Urine Bilirubin Negative Urine Urobilinogen Negative Ur Leukocyte Esterase Negative Urine WBC (Auto) 1-5 Urine RBC (Auto) 0-4 U Hyaline Cast (Auto) 1-5 U Epithel Cells (Auto) 20-30 H Urine Bacteria (Auto) Negative 12/12/18 12/12/18 12/12/18 04:43 04:43 07:14 WBC 12.63 H RBC 3.81 L Hgb 11.6 L Hct 34.4 L MCV 90.3 MCH 30.4 MCHC 33.7 RDW Std Deviation 43.3 RDW Coeff of [place] 13.2 Plt Count 317 MPV 10.0 Immature Gran % (Auto) 0.4 Neut % (Auto) 78.1 Lymph % (Auto) 11.5 [place] % (Auto) 9.0 Eos % (Auto) 0.9 Baso % (Auto) 0.1 Immature Gran # (Auto) 0.05 H Neut # (Auto) 9.87 H Lymph # (Auto) 1.45 [place] # (Auto) 1.14 H Eos # (Auto) 0.11 Baso # (Auto) 0.01 PT INR APTT PTT Ratio Sodium Potassium Chloride Carbon Dioxide Anion Gap BUN Creatinine Est Cr Clr Drug Dosing Est GFR ( Amer) Est GFR (Non-Af Amer) BUN/Creatinine Ratio Glucose POC Glucose 195 H Estimat Average Glucose 143 Hemoglobin A1c 6.6 H Calcium Magnesium Total Bilirubin AST ALT Alkaline Phosphatase Troponin I Total Protein Albumin Globulin Albumin/Globulin Ratio TSH Urine Color Urine Appearance Urine pH Ur Specific [place] Urine Protein Urine Glucose (UA) Urine Ketones Urine Blood Urine Nitrite Urine Bilirubin Urine Urobilinogen Ur Leukocyte Esterase Urine WBC (Auto) Urine RBC (Auto) U Hyaline Cast (Auto) U Epithel Cells (Auto) Urine Bacteria (Auto) Diagnostic Findings Echocardiogram preliminary review reveals 2 cm circumferential pericardial effusion with mild right ventricular compression. LV systolic function is preserved ECG Additional Comments: Atrial fibrillation with low voltage QRS
--- NOTE | 2018-12-12 16:15 | Hospitalist Progress Note ---
Date of Service December 12, 2018 Assessment & Plan (1) Pericardial effusion: Admitted with chest pain and no shortness of breath Enlarging pericardial effusion status post recent watchman procedure. ECHO performed today demonstrates significant change from description with 2 cm circumferential effusion mild right ventricular compromise with patient symptomaticexertional dyspnea and pleuritic discomfort. Patient is fully anticoagulated with warfarin but did not receive dose last evening Appreciate cardiology input and recommendation who discussed with vice president lending in [place] and the patient is to be transferred to [place] (2) Atrial fibrillation: Atrial fibrillation rates controlled Ongoing chest pain and shortness of breath (3) Weakness: Secondary to above Subjective This 73-year-old male presents with history of coronary artery disease status post in-stent restenosis and status post cardiac catheterization and restented, history of atrial fibrillation with history of pulmonary vein isolation, recent Watchman implantation and also post-procedure complications with pericardial effusion comes with ongoing chest pain and shortness of breath. 12/12 Patient was seen and examined in the telemetry unit Looked ill with distress at rest Complains of chest pain and the pain gets worse with breathing Physical Exam Vital Signs (Past 24 Hours): Last Vital Signs Temp 37.3 C 12/12/18 13:00 Pulse 91 H 12/12/18 13:00 Resp 20 12/12/18 13:00 BP 118/84 12/12/18 13:00 Pulse Ox 93 12/12/18 13:00 Physical Exam: Anxious with moderate distress at rest Constitutional: WD/WN, vitals as above Eyes: PERRL, conjunctivae normal, anicteric sclerae ENMT: external ear and nose normal, oropharynx normal Neck: JVD+ Respiratory: normal respiratory effort Auscultation: + diminished lung sounds Cardiovascular: Rate/Rhythm: + abnormal rate and + abnormal rhythm Heart Sounds: normal S1 and normal S2 Gastrointestinal (Abdomen): Inspection/Auscultation: abdomen normal to inspection and normal bowel sounds Neurologic: Alert, oriented x3 Results & Data Laboratory Results Short CBC 12/11/18 12/12/18 Range/Units 19:51 04:43 WBC 14.26 H 12.63 H (4.8-10.8) K/uL Hgb 12.2 L 11.6 L (14.0-18.0) g/dL Hct 36.8 L 34.4 L (42-52) % Plt Count 345 317 (130-400) K/uL BMP 03/07/19 03/07/19 03/08/19 19:51 21:48 04:43 Sodium 130 L 131 L Potassium 4.0 4.3 Chloride 97 L 100 Carbon Dioxide 25 26 BUN 10 11 Creatinine 1.06 0.99 Glucose 183 H 181 H Calcium 8.5 7.8 L Cardiac Enzymes 12/11/18 12/11/18 12/12/18 Range/Units 19:51 22:57 04:43 Troponin I < 0.015 < 0.015 < 0.015 (0-0.045) ng/ml 12/12/18 Range/Units 10:52 Troponin I < 0.015 (0-0.045) ng/ml Liver Function 12/11/18 12/11/18 Range/Units 19:51 21:48 Total Bilirubin 1.3 H (0.2-1) mg/dl AST 10 L (15-37) U/L ALT 18 (12-78) U/L Alkaline Phosphatase 84 (45-117) U/L Albumin 3.0 L (3.4-5.0) gm/dl Urine 12/12/18 Range/Units 03:20 Urine Color Dark Yellow Urine Appearance Clear (Clear) Urine pH 5.5 (4.5-7.5) Ur Specific [place] 1.031 H (1.000-1.030) Urine Protein Trace H (Negative) Urine Glucose (UA) 1+ H (Negative)
--- NOTE | 2018-12-12 17:51 | Discharge Summary ---
Date of Service December 12, 2018 Admission HPI Per Admitting Provider DICTATED BY: Robson Hart MD DATE OF ADMISSION: 12/11/2018 CHIEF COMPLAINT: Chest pain, shortness of breath. HISTORY OF PRESENT ILLNESS: This is a 73-year-old male with past medical history significant for diabetes, hyperlipidemia, paroxysmal atrial fibrillation, history of CAD status post stent, hypertension, pericardial effusion, history of diverticulitis of colon, GERD, history of urinary retention, polyneuropathy, history of ITP, history of non-Hodgkin's lymphoma status post chemo in remission presents with chest pain and shortness of breath. As per cardiac note, the patient has history of atrial fibrillation and coronary artery disease. He underwent pulmonary vein isolation procedure on 05/06/2018 with cryoablation and with CHADS-VASc score of 5, he also remained on Coumadin. He has history of CAD status post stents in 2013 and again in 2016. He was initially on triple anticoagulation therapy. Aspirin was stopped and subsequently the patient developed instent restenosis. He had recurrent angina. He underwent cardiac catheterization on 09/12/2018 and was found to have restenosis in the LAD as well as secondary lesion in the mid LAD. Two stents were placed and has since continued to remain on Coumadin, Plavix, and aspirin. Was decided to keep him on dual antiplatelet therapy indefinitely and planned watchman implantation and to hopefully stop Coumadin. Eventually patient is status post Watchman implantation on 12/03/2018 and is supposed to get CAITLIN done in January and wean off the Coumadin, but since the Watchman's implantation, the patient developed small pericardial effusion and recurrence of atrial fibrillation. As per patient, since then he is in AFib and since then he is having chest pain on exertion and also shortness of breath on exertion. A few days ago, he was not even able to participate in therapy because of the AFib and chest pain and shortness of breath. Says chest pain is in the middle of the chest, pressure like feeling. While resting, it is okay, but when ambulating, it becomes severe as well as some shortness of breath. Denies any cough. No sweating. Has some dizziness when he gets up. No headaches, no blurred vision, no earache, no runny nose, no sore throat, no difficulty swallowing, no nausea, no abdominal pain. Appetite is not that great. Not sleeping well last few days because he was waking up with chest pains. Normal bowel and bladder movements. No hematuria, no burning micturition. No hematochezia or melena. Has chromic lower extremity edema. Currently resting comfortably. The patient saw his tile finisher yesterday. An echo was done that showed his pericardial effusion was increased to moderate range, but not in tamponade, but because he is still having this ongoing chest pain and shortness of breath and not feeling well, he came to the ER today. Admission Exam Per Admitting Provider GENERAL: The patient is of moderate built, not in acute distress. VITAL SIGNS: Temperature 36.8, pulse 95, respiratory rate 20s, blood pressure 117/72, oxygen 96% room air. HEENT: No pallor, no icterus. Pupils equal, round, and react to light. NECK: No JVD, no neck masses, no carotid bruits. CARDIOVASCULAR: S1, S2 heard, irregular rhythm. No murmurs. RESPIRATORY SYSTEM: Normal AP diameter. No accessory muscle use. Mild bibasilar crackles present. No wheezing. ABDOMEN: Soft, bowel sounds present. Nontender. No distention. CENTRAL NERVOUS SYSTEM: Cranial nerves II-XII grossly intact, nonfocal. EXTREMITIES: Bilateral lower extremity edema present. No erythema seen. Principal Diagnosis Pericardial effusion with symptoms Discharge Exam Constitutional WD/WN, vitals as above Eyes PERRL, conjunctivae normal, anicteric sclerae ENMT external ear and nose normal, oropharynx normal Respiratory normal respiratory effort Auscultation: + diminished lung sounds Cardiovascular Rate/Rhythm: + abnormal rate and + abnormal rhythm Heart Sounds: normal S1 and normal S2 Gastrointestinal (Abdomen) Inspection/Auscultation: abdomen normal to inspection and normal bowel sounds Discharge Data Allergies Allergy/AdvReac Type Severity Reaction Status Date / Time hydroxyzine Allergy Severe Anaphylaxis Verified 12/11/18 20:04 Gold Salts Allergy Intermediate hives Verified 12/11/18 20:04 losartan Allergy Intermediate hypotension Verified 12/11/18 20:04 triamcinolone Allergy Intermediate "pustules/r Verified 12/11/18 20:04 edness" Penicillins Allergy Mild RASH Verified 12/11/18 20:04 wheat Allergy Mild Rash Verified 12/11/18 20:04 Consultations 12/11/18 22:49 Consult Case Management - Discharge Planning Routine 12/12/18 08:00 Consult Cardiology Routine Hospital Course (1) Pericardial effusion: Admitted with chest pain and no shortness of breath Enlarging pericardial effusion status post recent watchman procedure. ECHO performed today demonstrates significant change from description with 2 cm circumferential effusion mild right ventricular compromise with patient symptomaticexertional dyspnea and pleuritic discomfort. Patient is fully anticoagulated with warfarin but did not receive dose last evening Appreciate cardiology input and recommendation who discussed with tile finisher in [place] and the patient is to be transferred to [place] (2) Atrial fibrillation: Atrial fibrillation rates controlled Ongoing chest pain and shortness of breath (3) Weakness: Secondary to above Total Time Total Time Spent Total Time Spent (In Minutes): 35 minutes Discharge Plan Discharge Items Patient Disposition: Transfer Acute Care Hospital Reason For Visit: CHEST PAIN Discharge Diagnosis: Pericardial Effusion Condition: Serious Discharge Goals: Decrease discomfort and Improve function Activity: Resume your previous activity Non-emergency contact: Primary Care Provider Call non-emergency contact if: you have any medication questions and your symptoms worsen Follow-up/Referrals: Noble King DO [Primary Care Provider] - Diet: Heart Healthy Addtl Provider Instructions: All of the inpatient medications were continued on discharge. Home medications are on hold temporarily Prescriptions: Discontinued glipizide 10 mg tablet 20 mg PO BIDM RF: 0 cyanocobalamin (vitamin B-12) 1,000 mcg Tablet 1,000 mcg PO QAM RF: 0 clopidogrel 75 mg tablet 75 mg PO QAM RF: 0 amlodipine 5 mg tablet 5 mg PO QAM RF: 0 warfarin 5 mg tablet 5 mg PO [id number] RF: 0 warfarin 5 mg tablet 2.5 mg PO WK RF: 0 dapsone 25 mg tablet 25 mg PO QPM RF: 0 docusate sodium [Colace] 100 mg Capsule 100 mg PO BID PRN (Reason: Constipation) RF: 0 omeprazole 20 mg capsule,delayed release(DR/EC) 20 mg PO QAM RF: 0 fluticasone 50 mcg/actuation spray,suspension 2 spray Intranasal HS RF: 0 metformin 500 mg tablet extended release 24 hr 1,000 mg PO BID RF: 0 Eye Drop Tears 1-0.2-0.2 % Drops 1 drp OPB BID PRN (Reason: Dry Eye(S)) RF: 0 Multi Complete with Iron 18-400 mg-mcg Tablet 1 tab PO QAM RF: 0 metoprolol succinate [Toprol XL] 50 mg tablet extended release 24 hr 50 mg PO BID RF: 0 tamsulosin [Flomax] 0.4 mg capsule 0.4 mg PO DAILY RF: 0 atorvastatin 40 mg Tablet 40 mg PO HS RF: 0 aspirin 81 mg Tablet,Delayed Release (Dr/Ec) 81 mg PO HS RF: 0 acetaminophen [Acetaminophen Extra Strength] 500 mg Tablet 1,000 mg PO Q8 PRN (Reason: Pain) RF: 0 nitroglycerin [Nitrostat] 0.4 mg Tablet, Sublingual 1 dose Sublingual UD PRN (Reason: Angina) RF: 0 betamethasone dipropionate 0.05 % Ointment 1 applic TOPICAL BID PRN (Reason: Rash) RF: 0 Discharge Orders: Discharge Order (Routine); Ordered 12/12/18 Ordered By: Daniel El Admission Data Admit Date/Time: 12/11/18 21:34 Attending Provider: Shanda Nowak Admit Provider: Robson Hart Primary Care Provider: Noble King Other Providers: Ricky Ashton ; Itz Jimenez ; Daniel El ; Radames Evans ; Julius Ivory ; Wood Win ; Kimberly Hollingsworth ; Delilah Brooks Service: Telemetry Other Interventions: Discharge Summary Assessment (RN) Last Done: 12/12/18 13:00 DC Date/Time DO NOT enter until pt leaves facility: 12/12/18 13:35
--- NOTE | 2018-12-12 17:58 | Discharge Summary ---
Date of Service December 12, 2018 Admission HPI Per Admitting Provider DICTATED BY: Robson Hart MD DATE OF ADMISSION: 12/11/2018 CHIEF COMPLAINT: Chest pain, shortness of breath. HISTORY OF PRESENT ILLNESS: This is a 73-year-old male with past medical history significant for diabetes, hyperlipidemia, paroxysmal atrial fibrillation, history of CAD status post stent, hypertension, pericardial effusion, history of diverticulitis of colon, GERD, history of urinary retention, polyneuropathy, history of ITP, history of non-Hodgkin's lymphoma status post chemo in remission presents with chest pain and shortness of breath. As per cardiac note, the patient has history of atrial fibrillation and coronary artery disease. He underwent pulmonary vein isolation procedure on 05/06/2018 with cryoablation and with CHADS-VASc score of 5, he also remained on Coumadin. He has history of CAD status post stents in 2013 and again in 2016. He was initially on triple anticoagulation therapy. Aspirin was stopped and subsequently the patient developed instent restenosis. He had recurrent angina. He underwent cardiac catheterization on 09/12/2018 and was found to have restenosis in the LAD as well as secondary lesion in the mid LAD. Two stents were placed and has since continued to remain on Coumadin, Plavix, and aspirin. Was decided to keep him on dual antiplatelet therapy indefinitely and planned watchman implantation and to hopefully stop Coumadin. Eventually patient is status post Watchman implantation on 12/03/2018 and is supposed to get CAITLIN done in January and wean off the Coumadin, but since the Watchman's implantation, the patient developed small pericardial effusion and recurrence of atrial fibrillation. As per patient, since then he is in AFib and since then he is having chest pain on exertion and also shortness of breath on exertion. A few days ago, he was not even able to participate in therapy because of the AFib and chest pain and shortness of breath. Says chest pain is in the middle of the chest, pressure like feeling. While resting, it is okay, but when ambulating, it becomes severe as well as some shortness of breath. Denies any cough. No sweating. Has some dizziness when he gets up. No headaches, no blurred vision, no earache, no runny nose, no sore throat, no difficulty swallowing, no nausea, no abdominal pain. Appetite is not that great. Not sleeping well last few days because he was waking up with chest pains. Normal bowel and bladder movements. No hematuria, no burning micturition. No hematochezia or melena. Has chromic lower extremity edema. Currently resting comfortably. The patient saw his reed or wind instrument repairer yesterday. An echo was done that showed his pericardial effusion was increased to moderate range, but not in tamponade, but because he is still having this ongoing chest pain and shortness of breath and not feeling well, he came to the ER today. Admission Exam Per Admitting Provider GENERAL: The patient is of moderate built, not in acute distress. VITAL SIGNS: Temperature 36.8, pulse 95, respiratory rate 20s, blood pressure 117/72, oxygen 96% room air. HEENT: No pallor, no icterus. Pupils equal, round, and react to light. NECK: No JVD, no neck masses, no carotid bruits. CARDIOVASCULAR: S1, S2 heard, irregular rhythm. No murmurs. RESPIRATORY SYSTEM: Normal AP diameter. No accessory muscle use. Mild bibasilar crackles present. No wheezing. ABDOMEN: Soft, bowel sounds present. Nontender. No distention. CENTRAL NERVOUS SYSTEM: Cranial nerves II-XII grossly intact, nonfocal. EXTREMITIES: Bilateral lower extremity edema present. No erythema seen Principal Diagnosis Pericardial Effusion Discharge Data Allergies Allergy/AdvReac Type Severity Reaction Status Date / Time hydroxyzine Allergy Severe Anaphylaxis Verified 12/11/18 20:04 Gold Salts Allergy Intermediate hives Verified 12/11/18 20:04 losartan Allergy Intermediate hypotension Verified 12/11/18 20:04 triamcinolone Allergy Intermediate "pustules/r Verified 12/11/18 20:04 edness" Penicillins Allergy Mild RASH Verified 12/11/18 20:04 wheat Allergy Mild Rash Verified 12/11/18 20:04 Consultations 12/11/18 22:49 Consult Case Management - Discharge Planning Routine 12/12/18 08:00 Consult Cardiology Routine Total Time Total Time Spent Total Time Spent (In Minutes): 35 minutes Total Time Includes: Examination of the Patient, Discharge Planning and Medication Reconciliation Discharge Plan Discharge Items Patient Disposition: Transfer Acute Care Hospital Reason For Visit: CHEST PAIN Discharge Diagnosis: Pericardial Effusion Condition: Serious Discharge Goals: Decrease discomfort and Improve function Activity: Resume your previous activity Non-emergency contact: Primary Care Provider Call non-emergency contact if: you have any medication questions and your symptoms worsen Follow-up/Referrals: Noble King DO [Primary Care Provider] - Diet: Heart Healthy Addtl Provider Instructions: All of the inpatient medications were continued on discharge. Home medications are on hold temporarily Prescriptions: Discontinued glipizide 10 mg tablet 20 mg PO BIDM RF: 0 cyanocobalamin (vitamin B-12) 1,000 mcg Tablet 1,000 mcg PO QAM RF: 0 clopidogrel 75 mg tablet 75 mg PO QAM RF: 0 amlodipine 5 mg tablet 5 mg PO QAM RF: 0 warfarin 5 mg tablet 5 mg PO [id number] RF: 0 warfarin 5 mg tablet 2.5 mg PO WK RF: 0 dapsone 25 mg tablet 25 mg PO QPM RF: 0 docusate sodium [Colace] 100 mg Capsule 100 mg PO BID PRN (Reason: Constipation) RF: 0 omeprazole 20 mg capsule,delayed release(DR/EC) 20 mg PO QAM RF: 0 fluticasone 50 mcg/actuation spray,suspension 2 spray Intranasal HS RF: 0 metformin 500 mg tablet extended release 24 hr 1,000 mg PO BID RF: 0 Eye Drop Tears 1-0.2-0.2 % Drops 1 drp OPB BID PRN (Reason: Dry Eye(S)) RF: 0 Multi Complete with Iron 18-400 mg-mcg Tablet 1 tab PO QAM RF: 0 metoprolol succinate [Toprol XL] 50 mg tablet extended release 24 hr 50 mg PO BID RF: 0 tamsulosin [Flomax] 0.4 mg capsule 0.4 mg PO DAILY RF: 0 atorvastatin 40 mg Tablet 40 mg PO HS RF: 0 aspirin 81 mg Tablet,Delayed Release (Dr/Ec) 81 mg PO HS RF: 0 acetaminophen [Acetaminophen Extra Strength] 500 mg Tablet 1,000 mg PO Q8 PRN (Reason: Pain) RF: 0 nitroglycerin [Nitrostat] 0.4 mg Tablet, Sublingual 1 dose Sublingual UD PRN (Reason: Angina) RF: 0 betamethasone dipropionate 0.05 % Ointment 1 applic TOPICAL BID PRN (Reason: Rash) RF: 0 Discharge Orders: Discharge Order (Routine); Ordered 12/12/18 Ordered By: Daniel El Admission Data Admit Date/Time: 12/11/18 21:34 Attending Provider: Shanda Nowak Admit Provider: Robson Hart Primary Care Provider: Noble King Other Providers: Ricky Ashton ; Itz Jimenez ; Daniel El ; Radames Evans ; Julius Ivory ; Wood Win ; Kimberly Hollingsworth ; Delilah Thomas Service: Telemetry Other Interventions: Discharge Summary Assessment (RN) Last Done: 12/12/18 13:00 DC Date/Time DO NOT enter until pt leaves facility: 12/12/18 13:35
[2018-12-12] MEDS ORDERED: FLUTICASONE PROPIONATE NA SPR 16 GM BTL SCH (21:00)
[2018-12-12] MEDS ORDERED: INSULIN GLARGINE SOLOSTAR 100 UNITS/ML 3 ML PEN SC SCH (21:00)
[2018-12-12] MEDS ORDERED: ASPIRIN 81 MG ECTAB PO SCH (21:00)
[2018-12-12] MEDS ORDERED: DAPSONE 25 MG TAB PO SCH (21:00)
[2018-12-12] MEDS ORDERED: TAMSULOSIN HCL 0.4 MG CAP PO SCH (21:00)
[2018-12-12] MEDS ORDERED: ATORVASTATIN 40 MG TAB PO SCH (21:00)
== END 2018-12-12 13:35 | disposition short-term general hospital (02) | DRG 315 ==
LOC: ED 19:27 → 2S 21:34

== ENCOUNTER 2019-02-02 08:36 | Inpatient (IN) ==
[2019-02-02] MEDS ORDERED: NITROGLYCERIN SL 0.4 MG/TAB TAB SL PRN (09:18)
[2019-02-02 09:43] LABS: Basophils # (auto) 0.02 K/uL (0-0.2); Basophils % (auto) 0.3 %; Eosinophils # (auto) 0.42 K/uL (0-0.5); Eosinophils % (auto) 6.3 %; Hematocrit (blood only) 38.7 % (42-52); Hemoglobin 12.9 g/dL (14.0-18.0); Immature Granulocytes # (auto) 0.01 K/uL (0.00-0.02); Immature Granulocytes % (auto) 0.1 %; Lymphocytes # (auto) 0.87 K/uL (1.2-3.4); Lymphocytes % (auto) 12.9 %; Mean Platelet Volume 10.8 fL (7.4-10.4); Monocytes # (auto) 0.95 K/uL (0.11-0.59); Monocytes % (auto) 14.1 %; Neutrophils # (auto) 4.45 K/uL (1.4-6.5); Neutrophils % (auto) 66.3 %; Platelet Count 176 K/uL (130-400); White Blood Count 6.72 K/uL (4.8-10.8)
[2019-02-02 09:51] LABS: Prothrombin Time 19.2 Seconds (9.0-12.0)
[2019-02-02 09:58] LABS: Mean Corpuscular Hgb Conc 33.3 g/dL (32-36)
[2019-02-02 10:00] LABS: Alanine Aminotransferase 30 U/L (12-78); Albumin Level 3.5 gm/dl (3.4-5.0); Aspartate Aminotransferase 27 U/L (15-37); BUN Creatinine Ratio 9.1 (10-20); Blood Urea Nitrogen 10 mg/dl (7-18); Carbon Dioxide 28 mmol/L (21-32); Chloride 101 mmol/L (98-107); Est GFR (African American) 74.4; Est GFR (Non-African American) 64.2; Glucose 230 mg/dl (70-99); Potassium 3.8 mmol/L (3.5-5.1); Sodium 137 mmol/L (136-145)
[2019-02-02 10:03] LABS: Albumin Globulin Ratio 1.1 (0.9-2); Alkaline Phosphatase 90 U/L (45-117); Globulin 3.2 gm/dl (2.5-4.0); Total Protein 6.7 gm/dl (6.4-8.2)
[2019-02-02] MEDS ORDERED: DOCUSATE SODIUM 100 MG CAP PO PRN (10:20)
[2019-02-02] MEDS ORDERED: CARBOHYDRATES FOR HYPOGLYCEMIA PO PRN (10:39)
[2019-02-02] MEDS ORDERED: GLUCOSE 10 TABS/TUBE PO PRN (10:39)
[2019-02-02] MEDS ORDERED: GLUCAGON FOR INJ 1 MG VIAL SQ PRN (10:39)
[2019-02-02] MEDS ORDERED: DEXTROSE 50% 50 ML SYRINGE IV PRN (10:39)
[2019-02-02] MEDS ORDERED: GLUCOSE 40% GEL 15 GM TUBE PO PRN (10:39)
[2019-02-02] MEDS ORDERED: POTASSIUM CHLORIDE 10 MEQ TABCR PO ONE (11:00)
[2019-02-02] MEDS: DOFETILIDE 125 MCG CAPSULE PO SCH ×2 (11:17→20:55)
--- NOTE | 2019-02-02 11:25 | History & Physical Report ---
Date of Service February 02, 2019 Assessment & Plan (1) Paroxysmal atrial fibrillation: Breakthrough symptomatic however rate controlled atrial fibrillation. Patient feels symptoms of generalized weakness when in atrial fibrillation. Has a long-standing history of paroxysmal atrial fibrillation and not feeling well with it. Previously he had been on a rhythm control strategy with flecainide but this was discontinued when he was diagnosed with coronary heart disease. Previous treatment with dronedarone had been unsuccessful. Previous antiarrhythmic therapy with both amiodarone and sotalol were ineffective and the patient had significant side effect of dizziness attributed to the amiodarone. The patient had ultimately [place] [facility] [place] with initial excellent clinical benefit. However with his recent pericarditis episode he had reverted to atrial fibrillation and remains in atrial fibrillation despite recent trial of repeat direct-current cardioversion. Tentative plan is for the patient to be initiated with antiarrhythmic medication Tikosyn (dofetilide). EKG performed on presentation today reveals normal corrected QT interval. His calculated GFR is normal. We will plan on continuing metoprolol succinate 50 mg twice daily and adding Tik osyn 500 mg every 12 start first dose now. Patient is to remain on telemetry for inpatient initiation of the medication to monitor for pro arrhythmia related effects. An EKG will be obtained 2 hours after each Tikosyn administration to allow dose adjustment as guided by corrected QT interval. The patient's INR is at goal. Continue Coumadin There have been tentative plans for the patient to hold his Coumadin as an outpatient to proceed with an EGD and biopsy. This will need to be put on hold pending optimization of his cardiac status. Although he does have a Watchman device in place. He is to continue triple therapy with aspirin, clopidogrel, and Coumadin for now. (2) Pericardial effusion: Atrial degree of anterior pericardial fluid without pericardial effusion was noted on most recent transthoracic echo 12/30/2018. Stable findings post pericardiocentesis. Patient remains on colchicine with plans to complete a 3-month course. (3) Myocardial infarction: History of chronic coronary heart disease, past bare metal stenting of the circumflex December,, drug-eluting stent to the LAD September,. He presented with recurrent angina and underwent [place] cardiac catheter[place]12/[place] [facility] [place] findings of both in-stent restenosis at the site o previous LAD stent as well as a new LAD lesion both of which were treated with drug-eluting stents. The patient had what was considered to be early onset in-stent restenosis of the LAD lesion in the setting of diabetes. This occurred 6 months after discontinuing aspirin and proceeding with ongoing anticoagulation to include Coumadin and clopidogrel. In an effort to avoid the bleeding consequences of triple therapy, the left atrial appendage occlusion device placed in obscure eventually transition him off of anticoagulation with Coumadin to maintain dual and platelet therapy. Things have been complicated however by the pericardial effusion and recurrent atrial fibrillation he remains on triple therapy. History of Present Illness Chief Complaint: Generalized weakness, Easy fatigability, attributed to atrial fibrillation Primary Care Provider: Noble King DO Mr Santos is a 74 year old male with a past history of complex coronary heart disease and recurrent symptomatic atrial fibrillation. The patient had recently been hospitalized in November 2018 having undergone a percutaneous left atrial appendage occlusion device procedure (Watchman device). Post procedure he developed a pericardial effusion which progressed to pericarditis. The pericardial effusion was followed on serial echocardiograms and ultimately he developed a large circumferential pericardial effusion with tamponade physiology and underwent emergent [place] [facility] [place]. With the de velopment of the pericardial effusion he had reverted from sinus rhythm to atrial fibrillation. Since the pericardiocentesis, he has improved from a pericarditis standpoint with no residual pericardial effusion of significance on recent transthoracic and transesophageal echocardiogram. He underwent a transesophageal [place] [facility] [place]. At that time rate controlled atrial fibrilla tion was noted. The left atrial appendage occlusion device was noted to be in place with no evidence of thrombus. There was a small amount of flow around the inferior aspect of the occlusion device noted. The patient underwent attempted direct-current cardioversion during that admission but was unsuccessful and he was discharged in rate controlled atrial fibrillation. The patient presents today having recently been reassessed as an outpatient. The tentative plan is for him to undergo initiation of the antiarrhythmic medication dofetilide for rhythm control strategy of his ongoing symptomatic atrial fibrillation. Allergies Allergy/AdvReac Type Severity Reaction Status Date / Time hydroxyzine Allergy Severe Anaphylaxis Verified 12/11/18 20:04 Gold Salts Allergy Intermediate hives Verified 12/11/18 20:04 losartan Allergy Intermediate hypotension Verified 12/11/18 20:04 triamcinolone Allergy Intermediate "pustules/r Verified 12/11/18 20:04 edness" Penicillins Allergy Mild RASH Verified 12/11/18 20:04 wheat Allergy Mild Rash Verified 12/11/18 20:04 Home Medications Home Medications Medication Instructions Recorded Confirmed Type amlodipine 2.5 mg PO QAM 08/27/18 02/02/19 History clopidogrel 75 mg PO QAM 08/27/18 02/02/19 History cyanocobalamin (vitamin B-12) 1,000 mcg PO QAM 08/27/18 02/02/19 History dapsone 25 mg PO QPM 08/27/18 02/02/19 History docusate sodium [Colace] 100 mg PO BID PRN 08/27/18 02/02/19 History fluticasone propionate 2 spray INTRANASAL HS 08/27/18 02/02/19 History glipizide 20 mg PO BIDM 08/27/18 02/02/19 History metformin 1,000 mg PO BID 08/27/18 02/02/19 History ijjolgyzigij-dzgy-qijrn acid 1 tab PO QAM 08/27/18 02/02/19 History [Multi Complete with Iron] omeprazole 20 mg PO QAM 08/27/18 02/02/19 History peg [id number] [Eye 1 drp OPB BID PRN 08/27/18 02/02/19 History Drop Tears] warfarin 2.5 mg PO WK 08/27/18 02/02/19 History warfarin 5 mg PO [id number] 08/27/18 02/02/19 History acetaminophen [Acetaminophen Extra 1,000 mg PO Q8 PRN 09/25/18 02/02/19 History Strength] aspirin 81 mg PO HS 09/25/18 02/02/19 History atorvastatin 40 mg PO HS 09/25/18 02/02/19 History betamethasone dipropionate 1 applic TOPICAL BID PRN 09/25/18 02/02/19 History nitroglycerin [Nitrostat] 1 dose SUBLINGUAL UD PRN 09/25/18 02/02/19 History metoprolol succinate [Toprol XL] 50 mg PO BID 12/11/18 02/02/19 History tamsulosin [Flomax] 0.4 mg PO DAILY 12/11/18 02/02/19 History colchicine 0.6 mg PO BID 02/02/19 02/02/19 History dapsone 25 mg PO DAILY 02/02/19 02/02/19 History furosemide [Lasix] 20 mg PO DAILY 02/02/19 02/02/19 History potassium chloride 10 meq PO DAILY 02/02/19 02/02/19 History Past Med/Surg History Social History Preferred Language: [place] Communication Ability: Effective Beliefs That Will Affect Care: None Current Living Situation: Alone current occupation: Retired Feels Safe at Home: Yes Smoking Status: Former smoker Second Hand Exposure: No Hx Alcohol Use: No Hx Substance Use: No Review of Systems Review of Systems: All systems reviewed & are unremarkable except as noted in HPI & below Physical Exam Physical Exam: General: no acute distress and stated age Eyes: conjunctiva are pink and non-injected, sclera clear Neck: normal jugular venous pulse, no hepatojugular reflux Chest: normal shape and normal respiratory effort Lungs: clear to auscultation and percussion Cardiac Exam: -Irregular rhythm, rate controlled, no murmurs, rubs, or gallops, no jugular venous distention Abdomen: abdomen soft, non-tender, no abnormal masses and no hepatosplenomegaly Musculoskeletal: no gait disturbance, no weakness Extremities: no edema and no cyanosis Neuro:awake, coversant, follows commands, no focal motor deficits Psych: appropriate affect and insight. Results & Data Vital Signs (Past 12 Hours) Vital Signs Temp Pulse Pulse Resp BP Pulse Ox 02/02/19 09:54 36.5 C 75 18 119/74 98 02/02/19 09:18 69 02/02/19 09:13 36.5 C 75 18 119/74 98 02/02/19 09:04 36.5 C 75 18 119/74 98 Laboratory Results Cardiac Enzymes 02/02/19 Range/Units 09:25 AST 27 (15-37) U/L Coagulation INR today 02/02/2019 was 2 Recent INR as outpatient 01/27/2019: 2 02/02/19 Range/Units 09:25 PT 19.2 H (9.0-12.0) Seconds CBC 02/02/19 Range/Units 09:25 WBC 6.72 (4.8-10.8) K/uL RBC 4.50 L (4.7-6.1) M/uL Hgb 12.9 L (14.0-18.0) g/dL Hct 38.7 L (42-52) % Plt Count 176 (130-400) K/uL Neut # (Auto) 4.45 (1.4-6.5) K/uL Lymph # (Auto) 0.87 L (1.2-3.4) K/uL [place] # (Auto) 0.95 H (0.11-0.59) K/uL Eos # (Auto) 0.42 (0-0.5) K/uL Baso # (Auto) 0.02 (0-0.2) K/uL Comprehensive Metabolic Panel 02/02/19 Range/Units 09:25 Sodium 137 (136-145) mmol/L Potassium 3.8 (3.5-5.1) mmol/L Chloride 101 (98-107) mmol/L Carbon Dioxide 28 (21-32) mmol/L BUN 10 (7-18) mg/dl Creatinine 1.11 (0.6-1.4) mg/dl Glucose 230 H (70-99) mg/dl Calcium 9.0 (8.5-10.1) mg/dl AST 27 (15-37) U/L ALT 30 (12-78) U/L Alkaline Phosphatase 90 (45-117) U/L Total Protein 6.7 (6.4-8.2) gm/dl Albumin 3.5 (3.4-5.0) gm/dl Intake and Output 02/01/19 02/02/19 02/02/19 22:59 06:59 14:59 Output Total 300 / 300 Balance -300 / -300 Output: Urine 300 / 300 Other: Weight 76.5 kg Patient Weight 02/03/19 06:59 Weight 76.5 kg Diagnostic Findings EKG performed today 02/02/2019 reviewed independently reveals atrial fibrillation at 71 bpm, mild nonspecific diffuse T wave abnormality. Corrected QT interval is normal at 452 ms.
[2019-02-02] MEDS ORDERED: BETAMETHASONE DIP AUG 0.05% OINT 15 GM TUBE EXT PRN (11:26)
[2019-02-02] MEDS ORDERED: ARTIFICIAL TEARS OPB PRN (11:45)
[2019-02-02] MEDS ORDERED: WARFARIN SOD 4 MG TAB PO ONE (16:00)
[2019-02-02] MEDS: glipiZIDE 5 MG TAB PO SCH (16:55)
[2019-02-02] MEDS ORDERED: METFORMIN HCL ER 500 MG TABCR PO SCH (17:00)
[2019-02-02] MEDS ORDERED: Nursing to Pharmacy Communication ONE (18:21)
[2019-02-02] MEDS: ACETAMINOPHEN 325 MG TAB PO PRN (18:35)
[2019-02-02] MEDS: FLUTICASONE PROPIONATE NA SPR 16 GM BTL SCH (20:56)
[2019-02-02] MEDS: ASPIRIN 81 MG ECTAB PO SCH (20:56)
[2019-02-02] MEDS: ATORVASTATIN 40 MG TAB PO SCH (20:56)
[2019-02-02] MEDS: METFORMIN HCL ER 500 MG TABCR PO SCH (20:57)
[2019-02-02] MEDS ORDERED: DAPSONE 25 MG TAB PO SCH (21:00)
[2019-02-02] MEDS ORDERED: METOPROLOL SUCC 50MG EXT REL TAB PO SCH (21:00)
[2019-02-03 06:20] LABS: Prothrombin Time 19.1 Seconds (9.0-12.0)
[2019-02-03 06:37] LABS: BUN Creatinine Ratio 8.9 (10-20); Calcium 8.7 mg/dl (8.5-10.1); Est GFR (African American) 66.3; Est GFR (Non-African American) 57.2; Potassium 4.1 mmol/L (3.5-5.1)
[2019-02-03] MEDS: METOPROLOL SUCC 50MG EXT REL TAB PO SCH (09:05)
[2019-02-03] MEDS: glipiZIDE 5 MG TAB PO SCH ×2 (09:07→17:59)
[2019-02-03] MEDS: DOFETILIDE 125 MCG CAPSULE PO SCH ×2 (09:07→20:54)
[2019-02-03] MEDS: CEROVITE ADV FORMULA TAB PO SCH (09:08)
[2019-02-03] MEDS: TAMSULOSIN HCL 0.4 MG CAP PO SCH (09:08)
[2019-02-03] MEDS: PANTOprazole 40 MG TAB PO SCH (09:08)
[2019-02-03] MEDS: CYANOCOBALAMIN 500 MCG TABLET (VITAMIN B-12) PO SCH (09:08)
[2019-02-03] MEDS: CLOPIDOGREL BISULFATE 75 MG TAB PO SCH (09:08)
[2019-02-03] MEDS: METFORMIN HCL ER 500 MG TABCR PO SCH ×2 (09:08→20:53)
[2019-02-03] MEDS: AMLODIPINE BESYLATE 5 MG TAB PO SCH (09:08)
--- NOTE | 2019-02-03 09:33 | Cardiology Progress Note ---
Date of Service February 03, 2019 Assessment & Plan (1) Paroxysmal atrial fibrillation: Rhythm control strategy: Per Tikosyn (dofetolide) produce insert initiation algorithm, the patient's capillary creatinine clearance using the Cockcroft-Gault formula was performed today with calculated creatinine clearance of 55.5 mL/min/m. After having received 2 doses of dofetilide the patient had an increase noted in his baseline QT interval from 403 ms to 483 ms, which is an increase of 20%. Given the patient's calculated creatinine clearance and the change in the QT interval, the patient's dofetilide dose has been reduced to 250 mg twice daily as of this morning 02/03/2019. We will plan on a repeat EKG 2 hours after his morning dose which is just been administered. The patient's prior to hospital dose of metoprolol succinate 50 mg twice daily has been reduced to 50 mg daily. Stroke prophylaxis: Continue Coumadin. INR is 2 today. Patient received Coumadin 5 mg today. The patient's potassium level 3.8 yesterday is improved today to 4.1. Blood sugars are stable on his home regimen of oral medications without hyper or hypoglycemia. Patient is to remain on telemetry for further dofetilide initiation/loading. DVT prophylaxis: Patient is fully anticoagulated with Coumadin. -the paptient was provided with a copy of the Tikosyn patient guide. Subjective Chief complaint: Follow-up exertional shortness of breath Subjective: Patient states he feels well. He had mild subjective shortness of breath during sleep last night. Telemetry reveals that he converted from rate controlled atrial fibrillation in the mid 70 be per minute range to sinus rhythm on 02/02/2019, 1421 hrs. No significant conversion pause was noted. Since that time sinus rhythm sinus bradycardia with occasional PVCs has been present. For the most part his rates have been in the range of 55 to 65 bpm. Review of Systems Review of Systems: All systems reviewed & are unremarkable except as noted in HPI & below Physical Exam Physical Exam: General: no acute distress and stated age Eyes: conjunctiva are pink and non-injected, sclera clear Neck: normal jugular venous pulse, no hepatojugular reflux Chest: normal shape and normal respiratory effort Lungs: clear to auscultation and percussion Cardiac Exam: - regular heart sounds, no murmurs, rubs, or gallops, no jugular venous distention Abdomen: abdomen soft, non-tender, no abnormal masses and no hepatosplenomegaly Musculoskeletal: no gait disturbance, no weakness Extremities: no edema and no cyanosis Neuro:awake, coversant, follows commands, no focal motor deficits Psych: appropriate affect and insight. Results & Data Vital Signs (Past 12 Hours) Vital Signs Temp Pulse Resp BP Pulse Ox 02/03/19 07:59 36.6 C 61 18 134/53 L 94 02/03/19 03:34 37.0 C 60 17 136/65 95 02/02/19 23:25 61 18 124/65 96 Laboratory Results Cardiac Enzymes 02/02/19 Range/Units 09:25 AST 27 (15-37) U/L Coagulation 02/02/19 02/03/19 Range/Units 09:25 05:23 PT 19.2 H 19.1 H (9.0-12.0) Seconds CBC 02/02/19 Range/Units 09:25 WBC 6.72 (4.8-10.8) K/uL RBC 4.50 L (4.7-6.1) M/uL Hgb 12.9 L (14.0-18.0) g/dL Hct 38.7 L (42-52) % Plt Count 176 (130-400) K/uL Neut # (Auto) 4.45 (1.4-6.5) K/uL Lymph # (Auto) 0.87 L (1.2-3.4) K/uL [place] # (Auto) 0.95 H (0.11-0.59) K/uL Eos # (Auto) 0.42 (0-0.5) K/uL Baso # (Auto) 0.02 (0-0.2) K/uL Comprehensive Metabolic Panel 02/02/19 02/03/19 Range/Units 09:25 05:23 Sodium 137 135 L (136-145) mmol/L Potassium 3.8 4.1 (3.5-5.1) mmol/L Chloride 101 101 (98-107) mmol/L Carbon Dioxide 28 31 (21-32) mmol/L BUN 10 11 (7-18) mg/dl Creatinine 1.11 1.22 (0.6-1.4) mg/dl Glucose 230 H 105 H (70-99) mg/dl Calcium 9.0 8.7 (8.5-10.1) mg/dl AST 27 (15-37) U/L ALT 30 (12-78) U/L Alkaline Phosphatase 90 (45-117) U/L Total Protein 6.7 (6.4-8.2) gm/dl Albumin 3.5 (3.4-5.0) gm/dl Intake and Output 02/02/19 02/03/19 02/03/19 22:59 06:59 14:59 Intake Total 500 / 1100 0 / 1100 Output Total 600 / 1600 700 / 1600 300 / 300 Balance -100 / -500 -700 / -500 -300 / -300 Intake: Oral 500 / 1100 0 / 1100 Output: Urine 600 / 1600 700 / 1600 300 / 300 Other: Weight 76.2 kg Diagnostic Findings EKG performed 02/02/2019 at 1458 revealed sinus bradycardia at 57 bpm with diffuse nonspecific T wave flattening. The corrected QT interval was 473 ms compared to the prior tracing performed at 1318, sinus rhythm and replaced atrial fibrillation, the QT interval had increased from 404 ms to 473 ms. EKG performed between 2 to 3 hours after evening dose of dofetilide 500 mg, completed 02/02/2019 at 2335 hrs. revealed sinus bradycardia 59 bpm, first-degree AV block, QT interval 483 ms. Medications Administered Current Inpatient Medications Acetaminophen (Tylenol) 650 mg PO Q4H PRN PRN Reason: Pain or Fever Stop: 03/04/19 09:17 Last Admin: 02/02/19 18:35 Dose: 650 mg Documented by: Amlodipine Besylate (Norvasc) 2.5 mg PO [facility] Stop: 03/05/19 08:59 Last Admin: 02/03/19 09:08 Dose: 2.5 mg Documented by: Artificial Tears (Artificial Tears) 1 drops OPB BID PRN PRN Reason: DRY EYES Stop: 03/04/19 11:44 Aspirin (Ecotrin Ectab) 81 mg PO [facility] Stop: 03/04/19 20:59 Last Admin: 02/02/19 20:56 Dose: 81 mg Documented by: Atorvastatin Calcium (Lipitor) 40 mg PO [facility] Stop: 03/04/19 20:59 Last Admin: 02/02/19 20:56 Dose: 40 mg Documented by: Betamethasone Dipropion Augmented (Diprolene 0.05%) 1 appln EXT BID PRN PRN Reason: Rash Stop: 03/04/19 11:25 Clopidogrel [facility]) [facility] Stop: 03/05/19 08:59 Last Admin: 02/03/19 09:08 Dose: 75 mg Documented by: Cyanocobalamin (Vitamin B-12) [facility],000 [facility]cg [facility] Stop: 03/05/19 08:59 Last Admin: 02/03/19 09:08 Dose: 1,000 mcg Documented by: Dapsone (Dapsone) 25 mg PO DAILY@1700 [facility] Stop: 03/05/19 16:59 Dextrose (Dextrose 50%) 25 - 50 ml IV UD PRN; Protocol PRN Reason: Hypoglycemia Protocol Stop: 03/04/19 10:38 Docusate Sodium (Colace) 100 mg PO BID PRN PRN Reason: Constipation Stop: 03/04/19 10:19 Dofetilide (Tikosyn) 250 mcg PO BID [facility] Stop: 03/05/19 08:59 Last Admin: 02/03/19 09:07 Dose: 250 mcg Documented by: Fluticasone Propionate (Flonase) 2 sprays NA [facility] Stop: 03/04/19 20:59 Last Admin: 02/02/19 20:56 Dose: 2 sprays Documented by: Glipizide (Glucotrol) 20 mg PO BIDM [facility] Stop: 03/04/19 16:59 Last Admin: 02/03/19 09:07 Dose: 20 mg Documented by: Glucagon (Glucagen) 1 mg SQ UD PRN; Protocol PRN Reason: Hypoglycemia Protocol Stop: 03/04/19 10:38 Glucose (Glucose 40%) 15 - 30 gm PO UD PRN; Protocol PRN Reason: Hypoglycemia Protocol Stop: 03/04/19 10:38 Glucose (Dex4 Glucose) 4 - 8 tabs PO UD PRN; Protocol PRN Reason: Hypoglycemia Protocol Stop: 03/04/19 10:38 Metformin HCl (Glucophage Er) 1,000 mg PO BID@0800,2100 [facility] Stop: 03/04/19 20:59 Last Admin: 02/03/19 09:08 Dose: 1,000 mg Documented by: Metoprolol Succinate (Toprol Xl) [facility] Stop: 03/05/19 08:59 Last Admin: 02/03/19 09:05 Dose: 50 mg Documented by: Miscellaneous (Carbohydrates For Hypoglycemia) 15 - 30 gm PO UD PRN PRN Reason: Hypoglycemia Treatment Stop: 03/04/19 10:38 Multivitamins/Minerals (Multivitamin W/ Minerals Tab) [facility] Stop: 03/05/19 08:59 Last Admin: 02/03/19 09:08 Dose: 1 tab Documented by: Nitroglycerin (Nitrostat) 0.4 mg SL UD PRN PRN Reason: Chest Pain Stop: 03/04/19 09:17 Pantoprazole Sodium (Protonix) 40 mg PO QAM [facility] Stop: 03/05/19 08:59 Last Admin: 02/03/19 09:08 Dose: 40 mg Documented by: Tamsulosin HCl (Flomax) 0.4 mg PO DAILY [facility] Stop: 03/05/19 08:59 Last Admin: 02/03/19 09:08 Dose: 0.4 mg Documented by: Warfarin Sodium (Coumadin) 5 mg PO DAILY@1600 [facility] Stop: 03/05/19 15:59
[2019-02-03] MEDS ORDERED: WARFARIN SOD 5 MG TAB PO SCH (16:00)
[2019-02-03] MEDS: DAPSONE 25 MG TAB PO SCH (17:59)
[2019-02-03] MEDS: ATORVASTATIN 40 MG TAB PO SCH (20:52)
[2019-02-03] MEDS: ACETAMINOPHEN 325 MG TAB PO PRN (20:52)
[2019-02-03] MEDS: FLUTICASONE PROPIONATE NA SPR 16 GM BTL SCH (20:53)
[2019-02-03] MEDS: ASPIRIN 81 MG ECTAB PO SCH (20:53)
[2019-02-04 07:37] LABS: INR 1.9 (0.9-1.1); Prothrombin Time 18.6 Seconds (9.0-12.0)
[2019-02-04] MEDS: METFORMIN HCL ER 500 MG TABCR PO SCH ×2 (08:59→20:52)
[2019-02-04] MEDS: DOFETILIDE 125 MCG CAPSULE PO SCH ×2 (08:59→20:52)
[2019-02-04] MEDS: TAMSULOSIN HCL 0.4 MG CAP PO SCH (08:59)
[2019-02-04] MEDS: glipiZIDE 5 MG TAB PO SCH ×2 (08:59→16:57)
[2019-02-04] MEDS: AMLODIPINE BESYLATE 5 MG TAB PO SCH (09:00)
[2019-02-04] MEDS: PANTOprazole 40 MG TAB PO SCH (09:00)
[2019-02-04] MEDS: CEROVITE ADV FORMULA TAB PO SCH (09:00)
[2019-02-04] MEDS: CYANOCOBALAMIN 500 MCG TABLET (VITAMIN B-12) PO SCH (09:00)
[2019-02-04] MEDS: CLOPIDOGREL BISULFATE 75 MG TAB PO SCH (09:00)
[2019-02-04] MEDS: METOPROLOL SUCC 50MG EXT REL TAB PO SCH (09:00)
--- NOTE | 2019-02-04 09:29 | Cardiology Progress Note ---
Date of Service February 04, 2019 Assessment & Plan (1) Paroxysmal atrial fibrillation: INR 1.9 today. Patient has a left atrial appendage occlusion device, no bridge therapy necessary at the present time for mildly subtherapeutic INR. Plan to administer Coumadin 7.5 mg today, 02/04/2019 and will repeat INR tomorrow. (2) Encounter for monitoring anti-arrhythmic therapy: Patient remains in sinus rhythm having converted from atrial fibrillation to sinus rhythm several hours after his initial dose of dofetilide. For the most part telemetry reveals sinus rhythm in the mid 60 bpm range. His heart rate increases appropriately when he is walking in the hallway. A borderline first-degree AV block, 2 first-degree AV block is noted on telemetry and EKG which is stable. Stable nonspecific T wave abnormality is noted unchanged compared to prior historical tracings. Patient has been having occasional unifocal PVCs and occasional premature atrial contractions. A 4 beat mavis of nonsustained ventricular tachycardia at 140 bpm was noted on 02/04/2019 at 12:33 AM. Patient does note subjective palpitations with PVCs. The corrected QT interval on his most recent EKG his dose last evening was 483 ms, and 471 ms at 10:56 AM yesterday. This is just at the borderline as to where I would consider reducing his dofetilide dose from 250 mg down to 125. I plan to await the EKG to be performed 2 hours after his morning dose of 250 this morning and will reassess. On admission, he was on metoprolol succinate 50 mg twice daily having recently had his dose increased from 50 mg once a day to twice a day. This was reduced back to once a day after the initiation of the dofetilide, given the subjective palpitations which have in the past been alleviated with metoprolol, will increase his metoprolol back to 50 mg daily in the a.m. and 25 at bedtime. We will update his basic metabolic panel and magnesium level given subjective palpitations this morning. As of tomorrow morning he will have been on telemetry for 72 hours during initiation of dofetilide. I will plan on EKG at 7 AM prior to his dose, as well as after the dose tomorrow. (3) Pericardial effusion: I had inadvertently not ordered the patient's colchicine on admission. We will resume this today. We will order an updated limited 2D echo to reassess pericardial effusion as this is not as well assessed on his recent transesophageal echo compared to transthoracic images. Patient has had mild lower extremity edema since his pericardiocentesis for which he had been on furosemide. He has trace edema at the sock line today. We will resume his furosemide and potassium supplementation. Update chemistry panel tomorrow. (4) Myocardial infarction: History of complex CAD multiple PCI procedures. No angina present. Continue aspirin, clopidogrel, metoprolol, amlodipine, atorvastatin. Subjective Chief complaint: Follow-up generalized fatigue, palpitations Subjective: Patient states he overall feels well. He remained in sinus rhythm throughout the day last evening, overnight last night, and again this morning. He notes mild subjective palpitations this morning correlate with sensed occasional supraventricular and ventricular ectopy. No episodes of atrial fibrillation noted on telemetry. Review of Systems Review of Systems: All systems reviewed & are unremarkable except as noted in HPI & below Physical Exam Physical Exam: General: no acute distress and stated age Eyes: conjunctiva are pink and non-injected, sclera clear Neck: normal jugular venous pulse, no hepatojugular reflux Chest: normal shape and normal respiratory effort Lungs: clear to auscultation and percussion Cardiac Exam: - regular heart sounds, no murmurs, rubs, or gallops, no jugular venous distention Abdomen: abdomen soft, non-tender, no abnormal masses and no hepatosplenomegaly Musculoskeletal: no gait disturbance, no weakness Extremities: no edema and no cyanosis Neuro:awake, coversant, follows commands, no focal motor deficits Psych: appropriate affect and insight. Results & Data Vital Signs (Past 12 Hours) Vital Signs Temp Pulse Resp BP Pulse Ox 02/04/19 08:11 36.7 C 62 16 122/65 93 02/04/19 03:47 36.6 C 59 L 17 116/63 93 02/03/19 23:05 36.6 C 59 L 18 132/49 L 93 Laboratory Results INR today 02/04/2019 1.9 down from 2.0 yesterday Diagnostic Findings EKG performed 02/03/2019 10:56 AM and reviewed independently: Sinus bradycardia 57 bpm Diffuse nonspecific T wave abnormality Corrected QT interval of 471 ms. Compared to 02/02/2019 2335, there is been no significant interval change. EKG performed 02/03/2019 at 2302 and reviewed independently by the undersigned: Sinus bradycardia 59 bpm, first-degree AV block, UT interval 206 ms Nonspecific T wave abnormality Corrected QT interval 483 ms.
[2019-02-04 09:48] LABS: BUN Creatinine Ratio 11.6 (10-20); Calcium 8.8 mg/dl (8.5-10.1); Creatinine Clr Calc Pharmacy 62.3 ml/min; Est GFR (African American) 88.6; Est GFR (Non-African American) 76.5; Magnesium 2.1 mg/dl (1.8-2.4); Potassium 3.8 mmol/L (3.5-5.1)
[2019-02-04] MEDS: POTASSIUM CHLORIDE 10 MEQ TABCR PO SCH (11:25)
[2019-02-04] MEDS: FUROSEMIDE 20 MG TAB PO SCH (11:25)
[2019-02-04] MEDS: COLCHICINE 0.6 MG TAB PO SCH ×2 (11:25→20:52)
[2019-02-04] MEDS: DAPSONE 25 MG TAB PO SCH ×2 (11:26→16:57)
[2019-02-04] MEDS ORDERED: WARFARIN SOD 7.5 MG TAB PO SCH (16:00)
[2019-02-04] MEDS: ACETAMINOPHEN 325 MG TAB PO PRN (19:12)
[2019-02-04] MEDS: ASPIRIN 81 MG ECTAB PO SCH (20:52)
[2019-02-04] MEDS: ATORVASTATIN 40 MG TAB PO SCH (20:52)
[2019-02-04] MEDS: FLUTICASONE PROPIONATE NA SPR 16 GM BTL SCH (20:52)
[2019-02-04] MEDS ORDERED: METOPROLOL SUCC 25MG EXT REL TAB PO SCH (21:00)
[2019-02-05] MEDS ORDERED: DOFETILIDE 125 MCG CAPSULE PO SCH
[2019-02-05 07:10] LABS: INR 2.1 (0.9-1.1)
[2019-02-05 07:43] LABS: BUN Creatinine Ratio 12.8 (10-20); Calcium 8.9 mg/dl (8.5-10.1); Creatinine Clr Calc Pharmacy 59.2 ml/min; Est GFR (African American) 83.4; Est GFR (Non-African American) 71.9; Potassium 3.8 mmol/L (3.5-5.1)
[2019-02-05] MEDS: COLCHICINE 0.6 MG TAB PO SCH (08:55)
[2019-02-05] MEDS: DOFETILIDE 125 MCG CAPSULE PO SCH (08:55)
[2019-02-05] MEDS: glipiZIDE 5 MG TAB PO SCH (08:55)
[2019-02-05] MEDS: CYANOCOBALAMIN 500 MCG TABLET (VITAMIN B-12) PO SCH (08:56)
[2019-02-05] MEDS: POTASSIUM CHLORIDE 10 MEQ TABCR PO SCH (08:56)
[2019-02-05] MEDS: METOPROLOL SUCC 50MG EXT REL TAB PO SCH (08:56)
[2019-02-05] MEDS: CLOPIDOGREL BISULFATE 75 MG TAB PO SCH (08:56)
[2019-02-05] MEDS: TAMSULOSIN HCL 0.4 MG CAP PO SCH (08:56)
[2019-02-05] MEDS: AMLODIPINE BESYLATE 5 MG TAB PO SCH (08:56)
[2019-02-05] MEDS: METFORMIN HCL ER 500 MG TABCR PO SCH (08:56)
[2019-02-05] MEDS: FUROSEMIDE 20 MG TAB PO SCH (08:56)
[2019-02-05] MEDS: CEROVITE ADV FORMULA TAB PO SCH (08:57)
[2019-02-05] MEDS: PANTOprazole 40 MG TAB PO SCH (08:57)
[2019-02-05] MEDS: DAPSONE 25 MG TAB PO SCH (10:11)
[2019-02-05] MEDS ORDERED: WARFARIN SOD 7.5 MG TAB PO SCH (11:30)
--- NOTE | 2019-02-05 12:06 | Cardiology Progress Note ---
Date of Service February 05, 2019 Assessment & Plan (1) Paroxysmal atrial fibrillation: Stable for discharge on new medication dofetilide to 250 mg by mouth 2 times per day. Dose of metoprolol succinate has been reduced from 50 mg twice daily to 50 mg every morning and 25 mg every afternoon. Continue Coumadin for stroke prophylaxis. He is to receive 7.5 mg prior to discharge today, and resume his prior dose of 5 mg tomorrow with anticoagulation clinic follow-up. (2) Pericardial effusion: Resolved on repeat echo (3) Myocardial infarction: Continue current medications including dual antiplatelet therapy. Subjective CC: follow up generalized fatigue, palpitations. Subjective: Pateint feels well . Remains in sinus rhythm with occasional PVCs and PACs. EKG performed last evening at 11 pm, and at 7 am, 11 am today reveals stable SR with stable QTc. Review of Systems Review of Systems: All systems reviewed & are unremarkable except as noted in HPI & below Physical Exam Physical Exam: General: no acute distress and stated age Eyes: conjunctiva are pink and non-injected, sclera clear Neck: normal jugular venous pulse, no hepatojugular reflux Chest: normal shape and normal respiratory effort Lungs: clear to auscultation and percussion Cardiac Exam: - regular heart sounds, no murmurs, rubs, or gallops, no jugular venous distention Abdomen: abdomen soft, non-tender, no abnormal masses and no hepatosplenomegaly Musculoskeletal: no gait disturbance, no weakness Extremities: no edema and no cyanosis Neuro:awake, coversant, follows commands, no focal motor deficits Psych: appropriate affect and insight. Results & Data Vital Signs (Past 12 Hours) Vital Signs Temp Pulse Resp BP Pulse Ox 02/05/19 07:52 36.5 C 60 18 125/69 96 02/05/19 03:28 36.9 C 60 18 125/65 92 Laboratory Results INR today 02/05/2019 was 2.1 02/05/19 Range/Units 06:41 PT 20.0 H (9.0-12.0) Seconds Comprehensive Metabolic Panel 02/05/19 Range/Units 06:41 Sodium 135 L (136-145) mmol/L Potassium 3.8 (3.5-5.1) mmol/L Chloride 102 (98-107) mmol/L Carbon Dioxide 26 (21-32) mmol/L BUN 13 (7-18) mg/dl Creatinine 1.01 (0.6-1.4) mg/dl Glucose 85 (70-99) mg/dl Calcium 8.9 (8.5-10.1) mg/dl Intake and Output 02/04/19 02/05/19 02/05/19 22:59 06:59 14:59 Intake Total 740 / 1200 Output Total 1400 / 3925 1550 / 3925 Balance -660 / -2725 -1550 / -2725 Intake: Oral 740 / 1200 Output: Urine 1400 / 3925 1550 / 3925 Other: Weight 74.8 kg Diagnostic Findings EKG 02/04/2019 2302: Sinus bradycardia corrected QT interval 445 ms. EKG performed 02/05/2019 at 6:46 AM: Sinus bradycardia at 58 bpm, QT interval 477 ms EKG performed 02/05/2019 at 10:59 AM: Sinus rhythm at 62 bpm, unchanged nonspecific T wave abnormality, QT interval 475 ms. -I had reviewed his previous sinus rhythm EKGs that were available as an outpatient. EKG dating back to November, when he was in sinus rhythm revealed corrected QT interval of 443 ms, and therefore his current QT interval in the range of 475 to 477 ms is acceptable for ongoing dofetilide treatment with dose of 250 mg twice daily.
--- NOTE | 2019-02-05 12:24 | Discharge Summary ---
Date of Service February 05, 2019 Admission HPI Mr Santos is a 74 year old male with a past history of complex coronary heart disease and recurrent symptomatic atrial fibrillation. The patient had recently been hospitalized in November 2018 having undergone a percutaneous left atrial appendage occlusion device procedure (Watchman device). Post procedure he developed a pericardial effusion which progressed to pericarditis. The pericardial effusion was followed on serial echocardiograms and ultimately he developed a large circumferential pericardial effusion with tamponade physiology and underwent emergent peric[place]ocent[place] at [facility] [place]. With the development of the pericardial effusion he had reverted from sinus rhythm to atrial fibrillation. Since the pericardiocentesis, he has improved from a pericarditis standpoint with no residual pericardial effusion of significance on recent transthoracic and transesophageal echocardiogram. He underwent a transesophageal echocardiogram at [facility] [place] on 01/12/2019. At that time rate controlled atrial fibrillation was noted. The left atrial appendage occlusion device was noted to be in place with no evidence of thrombus. There was a small amount of flow around the inferior aspect of the occlusion device noted. The patient underwent attempted direct-current cardioversion during that admission but was unsuccessful and he was discharged in rate controlled atrial fibrillation. The patient presents today having recently been reassessed as an outpatient. The tentative plan is for him to undergo initiation of the antiarrhythmic medication dofetilide for rhythm control strategy of his ongoing symptomatic atrial fibrillation. Principal Diagnosis Principal Diagnosis Symptomatic atrial fibrillation. Admission for initiation of antiarrhythmic therapy. Discharge Data Allergies Allergy/AdvReac Type Severity Reaction Status Date / Time hydroxyzine Allergy Severe Anaphylaxis Verified 12/11/18 20:04 Gold Salts Allergy Intermediate hives Verified 12/11/18 20:04 losartan Allergy Intermediate hypotension Verified 12/11/18 20:04 triamcinolone Allergy Intermediate "pustules/r Verified 12/11/18 20:04 edness" Penicillins Allergy Mild RASH Verified 12/11/18 20:04 wheat Allergy Mild Rash Verified 12/11/18 20:04 Hospital Course (1) Paroxysmal atrial fibrillation: Stable for discharge on new medication dofetilide to 250 mg by mouth 2 times per day. Dose of metoprolol succinate has been reduced from 50 mg twice daily to 50 mg every morning and 25 mg every afternoon. Continue Coumadin for stroke prophylaxis. He is to receive 7.5 mg prior to discharge today, and resume his prior dose of 5 mg tomorrow with anticoagulation clinic follow-up. His prior to hospital treatment with Celexa has been discontinued due to potential interaction with dofetilide. Patient was counseled to not take this medication and it was removed from his outpatient medication list. (2) Pericardial effusion: Resolved on repeat echo (3) Myocardial infarction: Continue current medications including dual antiplatelet therapy. Total Time Total Time Spent Total Time Spent (In Minutes): 45 minutes Discharge Plan Discharge Items Patient Disposition: Home - Self-Care Reason For Visit: TIKOSYN Discharge Diagnosis: Symptomatic atrial fibrillation with successful initiation of the antiarrhythmic medication dofetilide, successful chemical cardioversion to sinus rhythm. Discharge Goals: Improve function and Therapeutic intervention Activity: Resume your previous activity Non-emergency contact: [employer] Call non-emergency contact if: you have any medication questions and your symptoms worsen Follow-up/Referrals: Noble King DO [Primary Care Provider] - Diet: Carb Consistent or DM2 Addtl Provider Instructions: Patient had recently started Celexa 10 mg daily. Due to concerns that this medication can interact with the dofetilide in terms of causing QT prolongation, he is to discontinue this medication. A short-term prescription for dofetilide was sent via the patient's [employer] record to his preferred local [facility] pharmacy. The medication will not be available until tomorrow at his local pharmacy, and therefore patient is to receive a short-term course from the inpatient hospital pharmacy at [facility]. The hospital has 125 mg dofetilide tablets so therefore the patient will need to take 2 of these tablets this evening at 9 PM and 2 tablets tomorrow in the morning at around 9 AM, prior to picking up his prescription for the 250 mg tablet. Prescriptions: New dofetilide 250 mcg capsule 250 mcg PO BID Qty: 60 RF: 3 metoprolol succinate [Toprol XL] 50 mg tablet extended release 24 hr See Rx Instructions .ROUTE .COMPLEX Qty: 45 RF: 0 Continued glipizide 10 mg tablet 20 mg PO BIDM RF: 0 cyanocobalamin (vitamin B-12) 1,000 mcg Tablet 1,000 mcg PO QAM RF: 0 clopidogrel 75 mg tablet 75 mg PO QAM RF: 0 amlodipine 5 mg tablet 2.5 mg PO QAM RF: 0 warfarin 5 mg tablet 5 mg PO [id number] RF: 0 warfarin 5 mg tablet 2.5 mg PO WK RF: 0 docusate sodium [Colace] 100 mg Capsule 100 mg PO BID PRN (Reason: Constipation) RF: 0 omeprazole 20 mg capsule,delayed release(DR/EC) 20 mg PO QAM RF: 0 fluticasone propionate 50 mcg/actuation spray,suspension 2 spray Intranasal HS RF: 0 metformin 500 mg tablet extended release 24 hr 1,000 mg PO BID RF: 0 Eye Drop Tears 1-0.2-0.2 % Drops 1 drp OPB BID PRN (Reason: Dry Eye(S)) RF: 0 Multi Complete with Iron 18-400 mg-mcg Tablet 1 tab PO QAM RF: 0 tamsulosin [Flomax] 0.4 mg capsule 0.4 mg PO DAILY RF: 0 atorvastatin 40 mg Tablet 40 mg PO HS RF: 0 aspirin 81 mg Tablet,Delayed Release (Dr/Ec) 81 mg PO HS RF: 0 acetaminophen [Acetaminophen Extra Strength] 500 mg Tablet 1,000 mg PO Q8 PRN (Reason: Pain) RF: 0 nitroglycerin [Nitrostat] 0.4 mg Tablet, Sublingual 1 dose Sublingual UD PRN (Reason: Angina) RF: 0 betamethasone dipropionate 0.05 % Ointment 1 applic TOPICAL BID PRN (Reason: Rash) RF: 0 colchicine 0.6 mg Capsule 0.6 mg PO BID RF: 0 furosemide [Lasix] 20 mg Tablet 20 mg PO DAILY RF: 0 potassium chloride 10 mEq Capsule, Extended Release 10 meq PO DAILY RF: 0 dapsone 25 mg Tablet 25 mg PO DAILY RF: 0 Discontinued metoprolol succinate [Toprol XL] 50 mg tablet extended release 24 hr 50 mg PO BID RF: 0 No Action dapsone 25 mg tablet 25 mg PO QPM RF: 0 Stand-Alone Forms: [facility] Discharge Orders: Discharge Order (Routine); Ordered 02/05/19 Ordered By: Itz Jimenez Admission Data Admit Date/Time: 02/02/19 08:36 Attending Provider: Itz Jimenez Admit Provider: Itz Jimenez Primary Care Provider: Noble King Service: Telemetry Other Pending Studies at Discharge: No
== END 2019-02-05 13:25 | disposition home or self-care (01) | DRG 309 ==
LOC: 2E 08:36

== ENCOUNTER 2020-11-22 06:00 | Observation (INO) ==
[2020-11-22 06:29] LABS: Hematocrit (blood only) 43.2 % (42-52); Hemoglobin 15.8 g/dL (14.0-18.0); Mean Corpuscular Hemoglobin 31.2 pg (25-34); Mean Corpuscular Hgb Conc 36.6 g/dL (32-36); Mean Corpuscular Volume 85.2 fL (80-100); Mean Platelet Volume 10.5 fL (7.4-10.4); Platelet Count 263 K/uL (130-400); RDW Coefficient of Variation 12.2 % (11.5-14.5); RDW Standard Deviation 37.2 fL (36.4-46.3); Red Blood Count 5.07 M/uL (4.7-6.1); White Blood Count 14.13 K/uL (4.8-10.8)
[2020-11-22 06:37] LABS: INR 1.1 (0.9-1.1); Prothrombin Time 10.7 Seconds (9.0-12.0)
[2020-11-22 06:45] LABS: Alanine Aminotransferase 21 U/L (12-78); Aspartate Aminotransferase 22 U/L (15-37); BUN Creatinine Ratio 10.2 (10-20); Bilirubin Direct 0.4 mg/dl (0-0.2); Blood Urea Nitrogen 12 mg/dl (7-18); Calcium 9.2 mg/dl (8.5-10.1); Carbon Dioxide 27 mmol/L (21-32); Chloride 89 mmol/L (98-107); Creatinine Clr Calc Pharmacy 48.6 ml/min; Est GFR (African American) 67.9; Est GFR (Non-African American) 58.6; Glucose 126 mg/dl (70-99); Lipase 80 U/L (73-393); Magnesium 1.8 mg/dl (1.8-2.4); Potassium 3.7 mmol/L (3.5-5.1); Sodium 125 mmol/L (136-145)
[2020-11-22 06:56] LABS: Alkaline Phosphatase 77 U/L (45-117); Bilirubin,Total 1.6 mg/dl (0.2-1); Total Protein 7.6 gm/dl (6.4-8.2); Troponin I < 0.015 ng/ml (0-0.045)
[2020-11-22] MEDS ORDERED: fentaNYL citrate 100 MCG/2 ML VIAL IV STA (07:02)
--- NOTE | 2020-11-22 07:09 | XRay Report ---
XR chest 1V portable CLINICAL HISTORY: Trauma. Weakness. COMPARISON STUDY: 07/15/2020 FINDINGS: The heart is normal in size given the AP technique. There is no failure. There is no focal pulmonary consolidation. There are no pleural effusions. There is no pneumothorax. Postsurgical wilson es involve the proximal left humerus.[ IMPRESSION: No active disease in the chest. ACT 112: Negative or not required by law. Electronically signed by: Blair Vanessa M.D. 11/22/2020 7:07 AM
[2020-11-22] MEDS ORDERED: SODIUM CHLORIDE 0.9% 1000ML 1,000 ML IV ONE (07:12)
--- NOTE | 2020-11-22 07:22 | Emergency Department Note ---
Impression & Plan Dehydration with hyponatremia, Fall, Gait instability, Weakness ED Provider Note NAME: OFELIA LAMA JR AGE: 75 SEX: M ARRIVES VIA: Ambulance INFORMANT: Patient, ED PROVIDER(S): Braxton Palomo MD CHIEF COMPLAINT: Weakness, fall PLAN: Disposition: Admit MEDICAL DECISION MAKING: The patient is a pleasant 75-year-old gentleman with a past medical history of hypertension, diabetes, question movement disorder on carbidopa levodopa, who presents emergency department with fall when his legs became weak in the setting of having recurrent symptoms of weakness over the past couple of weeks with report of nausea vomiting diarrhea. He denies cough, congestion, chest pain, shortness of breath, known COVID-19 exposures. He has any head strike or LOC. He has no pain in his hips back or neck. On arrival the patient is fatigued appearing but no acute distress, afebrile stable vital signs. He appears clinically dry. He has no focal neurologic deficits. Abdomen is benign. EKG without overt acute ischemia. CXR negative for acute cardiopulmonary process. CT head negative for acute process. WBC 14K, nonspecific. H/H and platelets wnl. Chemistry without acidosis. Total bilirubin 1.6 with DB 0.4, nonspecific. LFTs otherwise unremarkable. Troponin negative/undetectable. Covid-19, Influenza, RSV PCR negative. Given the patient's generalized weakness leading to fall in the setting of hyponatremia, reasonable to proceed with admission for further management. Patient agrees. Case was discussed with Megha Campbell [facility] PAC, with Dr. Grissom [facility] hospitalist who will evaluate the patient for admission. Triage Nursing notes reviewed and agree them. Prior medical records reviewed Vital Signs: reviewed and remarkable for no significant abnormalities Differential diagnosis: Cardiac ischemia, aortic dissection, pulmonary embolism, pneumothorax, pneumonia, pericarditis, myocarditis, esophageal rupture, GERD, cholecystitis, pancreatitis, musculoskeletal, as well as other pathologies. ER treatment provided: See below. Diagnostics interpreted by me: ECG: Normal sinus rhythm, 72 bpm, no ectopy, nonspecific ST abnormality, no overt ST elevation depression, QTC 499, QRS 94. Cardiac Monitoring: An order for continuous cardiac monitoring was placed and demonstrated Normal sinus rhythm, 72 bpm, no ectopy. Laboratory studies: See below Imaging studies: CT OF THE HEAD WITHOUT CONTRAST CLINICAL HISTORY: Weakness. Fall. COMPARISON STUDY: Head CT and CTA of the head March 15, 2020. MRI of the brain July 01, 2020. CT DOSE: 729.78 mGycm TECHNIQUE: Helical axial images of the head were obtained without IV contrast. Automated exposure control was utilized for the study. A dose lowering technique was utilized adhering to the principles of ALARA. FINDINGS: No acute intracranial hemorrhage, midline shift or mass effect is present. The ventricular system is unremarkable. White matter hypodensities are unchanged and suggest small vessel disease. The basal cisterns are patent. No extra-axial collections are present. There are no findings to suggest acute dural sinus thrombosis or acute territorial infarct. No significant calvarial abnormalities are present. Polypoid mucosal thickening within the ethmoid sinuses is again noted. IMPRESSION: 1. No acute intracranial findings. 2. No calvarial fracture. ACT 112: Negative or not required by law. -- XR chest 1V portable CLINICAL HISTORY: Trauma. Weakness. COMPARISON STUDY: 07/15/2020 FINDINGS: The heart is normal in size given the AP technique. There is no failure. There is no focal pulmonary consolidation. There are no pleural effusions. There is no pneumothorax. Postsurgical changes involve the proximal left humerus.[ IMPRESSION: No active disease in the chest. ACT 112: Negative or not required by law. Consultation(s): Case was discussed with Dimitrios Ma, with Dr. Jaciel Plunkett hospitalist who will evaluate the patient for admission. HPI: The patient is a pleasant 75-year-old gentleman with a past medical history of hypertension, diabetes who presents emergency department with fall when his legs became weak in the setting of having recurrent symptoms of weakness over the past couple of weeks with report of nausea vomiting diarrhea. He denies cough, congestion, chest pain, shortness of breath, known COVID-19 exposures. He has any head strike or LOC. He has no pain in his hips back or neck. ROS: See above HPI for pertinent positives & negatives. A total of 10 systems reviewed and were otherwise negative. PAST MEDICAL HISTORY:See Below PAST SURGICAL HISTORY:See Below FAMILY HISTORY:See Below SOCIAL HISTORY:See Below HOME MEDICATIONS:See Below ALLERGIES:See Below VITALS:See Below PHYSICAL EXAMINATION: GENERAL: Awake, alert, fatigued-appearing, in no distress HENT: Normocephalic, atraumatic. Oropharynx with dry mucous membranes and otherwise unremarkable. EYES: Normal conjunctiva. Sclera non-icteric. EOMI. No nystamgus. PEARRL. NECK: Supple. No nuchal rigidity. FROM. No JVD. RESPIRATORY: Clear to auscultation. CARDIAC: Regular rate, normal rhythm. Extremities warm and well perfused. Pulses equal. ABDOMEN: Soft, non-distended. No tenderness to palpation. No rebound or guarding. No masses. RECTAL: Deferred. MUSCULOSKELETAL: Chest examination reveals no tenderness. The back is symmetrical on inspection without obvious abnormality. There is no CVA tenderness to palpation. No joint edema. LOWER EXTREMITIES: Calves are equal size bilaterally and non-tender. No edema. No discoloration. NEURO: Normal sensorium. No sensory or motor deficits noted. 5/5 strength and SILT x 4 extremities. Cerebellar function intact including [id number], alternating palms, [id number]. SKIN: No rash or jaundice noted. 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 " On 07/25/11 18:09 Dianelys Mack wrote "with neuropathy " On 07/25/11 18:09 Dianelys Mack wrote "with neuropathy " Diverticular disease of colon GERD (gastroesophageal reflux disease) Hearing deficit History of adenomatous polyp of colon History of ITP History of non-Hodgkin's lymphoma Hyperlipidemia Hypertension Myocardial infarction 2013, 2016 Osteoarthritis Thrombocytopenia Unstable angina (12/11/13) Surgical History History of arthroscopy of left shoulder History of bilateral cataract extraction History of cardiac cath 2013, 2016, 09/12/2018 History of cardiac radiofrequency ablation 04/2018 @ [facility] History of colonoscopy History of esophagogastroduodenoscopy (EGD) History of heart artery stent 2013 x1, 2017x1, 09/12/2018 x2(drug eluting stent @ [facility]) History of tonsillectomy and adenoidectomy History of tooth extraction wisdom teeth History of umbilical hernia repair Hx of exploratory laparotomy Presence of Watchman left atrial appendage closure device placed 11/27/18 @ [facility] Status post cholecystectomy "1994" Status post pericardiocentesis Status post vasectomy Family History Sister Family history of diabetes mellitus Family history of reaction to anesthesia difficulty waking Mother Family history of diabetes mellitus Social History Smoking Status: Former smoker Tobacco Type: Cigarettes packs per day: 1; Years Smoked: 30; Smoking End Date: 09/1993; Second Hand Exposure: Yes (parents smoked); Hx Alcohol Use: No Hx Substance Use: No Preferred Language: Thai Communication Ability: Effective Flat Lock Operator Required: No Beliefs That Will Affect Care: None Current Living Situation: Alone current occupation: Retired Other Information That Helps Us Care for You: No Feels Safe at Home: Yes Safety Concerns: Feels Safe At This Time Assistive Devices: Walker Allergies Allergies Allergy/AdvReac Type Severity Reaction Status Date / Time hydroxyzine Allergy Severe Anaphylaxis Verified 11/22/20 06:30 Gold Salts Allergy Intermediate hives Verified 11/22/20 06:30 losartan Allergy Intermediate hypotension Verified 11/22/20 06:30 triamcinolone Allergy Intermediate "pustules/r Verified 11/22/20 06:30 edness" Penicillins Allergy Mild RASH Verified 11/22/20 06:30 wheat Allergy Mild Rash Verified 11/22/20 06:30 Home Meds Home Medications Medication Instructions Recorded Confirmed clopidogrel 75 mg PO QAM 08/27/18 11/22/20 cyanocobalamin (vitamin B-12) 1,000 mcg PO QAM 08/27/18 11/22/20 dapsone 25 mg PO QPM 08/27/18 11/22/20 fluticasone propionate 2 spray INTRANASAL HS 08/27/18 11/22/20 metformin 1,000 mg PO BID 08/27/18 11/22/20 omeprazole 20 mg PO BID 08/27/18 11/22/20 aspirin 81 mg PO HS 09/25/18 11/22/20 betamethasone dipropionate 1 applic TOPICAL BID PRN 09/25/18 11/22/20 nitroglycerin [Nitrostat] 1 dose SUBLINGUAL .PRN/UD PRN 09/25/18 11/22/20 tamsulosin [Flomax] 0.4 mg PO HS 12/11/18 11/22/20 furosemide [Lasix] 20 mg PO DAILY 02/02/19 11/22/20 potassium chloride 10 meq PO Q OTHER DAY 02/02/19 11/22/20 metoprolol succinate 50 mg 50 mg PO BID tab 09/10/19 11/22/20 tablet,extended release 24 hr glipizide 10 mg tablet 10 mg PO DAILY tab 02/26/20 11/22/20 meclizine 12.5 mg PO TID PRN 03/03/20 11/22/20 semaglutide [Ozempic] 0.5 mg SUBCUT WK 07/15/20 11/22/20 acetaminophen [Acetaminophen Extra 1,000 mg PO Q8 PRN 11/22/20 11/22/20 Strength] atorvastatin 20 mg PO DAILY 11/22/20 11/22/20 buspirone 5 mg PO BID PRN 11/22/20 11/22/20 carbidopa-levodopa 1 tab PO TID 11/22/20 11/22/20 dofetilide 250 mcg PO Q12 11/22/20 11/22/20 duloxetine 30 mg PO DAILY 11/22/20 11/22/20 multivitamin 1 tab PO DAILY 11/22/20 11/22/20 valsartan 80 mg PO DAILY 11/22/20 11/22/20 Results & Data (ED) Vital Signs Vital Signs - 24 hr 11/22/20 06:18 11/22/20 06:58 11/22/20 07:00 Temperature 36.8 C Temperature Source Oral Pulse Rate 72 70 69 Pulse Rate from SpO2 Sensor 70 70 Respiratory Rate 20 16 16 Blood Pressure 183/96 H 156/111 H 154/93 H Blood Pressure Mean 125 126 113 Pulse Oximetry 98 95 95 Oxygen Delivery Method Room Air Room Air Room Air Sepsis Recent Fever Within 48 Hours No Sepsis New/Unexplained Change in Mental Status N/A Sepsis Action Taken by Nursing No Action Required 11/22/20 07:30 11/22/20 07:31 11/22/20 07:47 Temperature Temperature Source Pulse Rate 70 69 70 Pulse Rate from SpO2 Sensor 70 69 69 Respiratory Rate 18 18 14 Blood Pressure 167/90 H 168/107 H Blood Pressure Mean 115 127 Pulse Oximetry 96 96 96 Oxygen Delivery Method Room Air Sepsis Recent Fever Within 48 Hours Sepsis New/Unexplained Change in Mental Status Sepsis Action Taken by Nursing 11/22/20 08:00 11/22/20 08:01 Temperature Temperature Source Pulse Rate 66 65 Pulse Rate from SpO2 Sensor 66 65 Respiratory Rate 17 16 Blood Pressure 171/83 H Blood Pressure Mean 112 Pulse Oximetry 95 95 Oxygen Delivery Method Sepsis Recent Fever Within 48 Hours Sepsis New/Unexplained Change in Mental Status Sepsis Action Taken by Nursing Laboratory Data Attestation: I reviewed the patient's lab results. Result diagrams: 11/22/20 06:15 11/22/20 13:53 Lab Results 11/22/20 11/22/20 11/22/20 Range/Units 06:15 06:15 06:15 WBC 14.13 H (4.8-10.8) K/uL RBC 5.07 (4.7-6.1) M/uL Hgb 15.8 (14.0-18.0) g/dL Hct 43.2 (42-52) % MCV 85.2 (80-100) fL MCH 31.2 (25-34) pg MCHC 36.6 H (32-36) g/dL RDW Std Deviation 37.2 (36.4-46.3) fL RDW Coeff of [place] 12.2 (11.5-14.5) % Plt Count 263 (130-400) K/uL MPV 10.5 H (7.4-10.4) fL Immature Gran % (Auto) 0.4 % Neut % (Auto) 78.1 % Lymph % (Auto) 13.1 % Dale % (Auto) 8.0 % Eos % (Auto) 0.3 % Baso % (Auto) 0.1 % Neut # (Auto) 11.05 H (1.4-6.5) K/uL Lymph # (Auto) 1.85 (1.2-3.4) K/uL Dale # (Auto) 1.13 H (0.11-0.59) K/uL Eos # (Auto) 0.04 (0-0.5) K/uL Baso # (Auto) 0.01 (0-0.2) K/uL Immature Gran # (Auto) 0.05 H (0.00-0.02) K/uL PT 10.7 (9.0-12.0) Seconds INR 1.1 (0.9-1.1) Sodium 125 L (136-145) mmol/L Potassium 3.7 (3.5-5.1) mmol/L Chloride 89 L (98-107) mmol/L Carbon Dioxide 27 (21-32) mmol/L Anion Gap 9.0 (3-11) BUN 12 (7-18) mg/dl Creatinine 1.19 (0.6-1.4) mg/dl Est Cr Clr Drug Dosing 48.6 ml/min Est GFR ( Amer) 67.9 Est GFR (Non-Af Amer) 58.6 BUN/Creatinine Ratio 10.2 (10-20) Glucose 126 H (70-99) mg/dl Osmolality (280-300) mOsm/kg Calcium 9.2 (8.5-10.1) mg/dl Phosphorus (2.5-4.9) mg/dl Magnesium 1.8 (1.8-2.4) mg/dl Total Bilirubin 1.6 H (0.2-1) mg/dl Direct Bilirubin 0.4 H (0-0.2) mg/dl AST 22 (15-37) U/L ALT 21 (12-78) U/L Alkaline Phosphatase 77 (45-117) U/L Troponin I < 0.015 (0-0.045) ng/ml Total Protein 7.6 (6.4-8.2) gm/dl Albumin 4.0 (3.4-5.0) gm/dl Lipase 80 (73-393) U/L TSH 2.370 (0.300-4.500) uIu/ml Urine Color Urine Appearance (Clear) Urine pH (4.5-7.5) Ur Specific [place] (1.000-1.030) Urine Protein (Negative) Urine Glucose (UA) (Negative) Urine Ketones (Negative) Urine Blood (Negative) Urine Nitrite (Negative) Urine Bilirubin (Negative) Urine Urobilinogen (Negative) Ur Leukocyte Esterase (Negative) Urine Osmolality (500-800) mOsm/kg Ur Random Sodium mmol/L COVID-19 Eval Order SARS-CoV-2 (PCR) (Negative) Influenza Type A (PCR) (Neg) Influenza Type B (PCR) (Neg) RSV (RT-PCR) (Neg) 11/22/20 11/22/20 11/22/20 Range/Units 06:15 06:15 07:20 WBC (4.8-10.8) K/uL RBC (4.7-6.1) M/uL Hgb (14.0-18.0) g/dL Hct (42-52) % MCV (80-100) fL MCH (25-34) pg MCHC (32-36) g/dL RDW Std Deviation (36.4-46.3) fL RDW Coeff of [place] (11.5-14.5) % Plt Count (130-400) K/uL MPV (7.4-10.4) fL Immature Gran % (Auto) % Neut % (Auto) % Lymph % (Auto) % Dale % (Auto) % Eos % (Auto) % Baso % (Auto) % Neut # (Auto) (1.4-6.5) K/uL Lymph # (Auto) (1.2-3.4) K/uL Dale # (Auto) (0.11-0.59) K/uL Eos # (Auto) (0-0.5) K/uL Baso # (Auto) (0-0.2) K/uL Immature Gran # (Auto) (0.00-0.02) K/uL PT (9.0-12.0) Seconds INR (0.9-1.1) Sodium (136-145) mmol/L Potassium (3.5-5.1) mmol/L Chloride (98-107) mmol/L Carbon Dioxide (21-32) mmol/L Anion Gap (3-11) BUN (7-18) mg/dl Creatinine (0.6-1.4) mg/dl Est Cr Clr Drug Dosing ml/min Est GFR ( Amer) Est GFR (Non-Af Amer) BUN/Creatinine Ratio (10-20) Glucose (70-99) mg/dl Osmolality 263 L (280-300) mOsm/kg Calcium (8.5-10.1) mg/dl Phosphorus 2.9 (2.5-4.9) mg/dl Magnesium (1.8-2.4) mg/dl Total Bilirubin (0.2-1) mg/dl Direct Bilirubin (0-0.2) mg/dl AST (15-37) U/L ALT (12-78) U/L Alkaline Phosphatase (45-117) U/L Troponin I (0-0.045) ng/ml Total Protein (6.4-8.2) gm/dl Albumin (3.4-5.0) gm/dl Lipase (73-393) U/L TSH (0.300-4.500) uIu/ml Urine Color Urine Appearance (Clear) Urine pH (4.5-7.5) Ur Specific [place] (1.000-1.030) Urine Protein (Negative) Urine Glucose (UA) (Negative) Urine Ketones (Negative) Urine Blood (Negative) Urine Nitrite (Negative) Urine Bilirubin (Negative) Urine Urobilinogen (Negative) Ur Leukocyte Esterase (Negative) Urine Osmolality (500-800) mOsm/kg Ur Random Sodium mmol/L COVID-19 Eval Order [facility] at [facility] SARS-CoV-2 (PCR) (Negative) Influenza Type A (PCR) (Neg) Influenza Type B (PCR) (Neg) RSV (RT-PCR) (Neg) 11/22/20 11/22/20 11/22/20 Range/Units 07:20 08:20 08:20 WBC (4.8-10.8) K/uL RBC (4.7-6.1) M/uL Hgb (14.0-18.0) g/dL Hct (42-52) % MCV (80-100) fL MCH (25-34) pg MCHC (32-36) g/dL RDW Std Deviation (36.4-46.3) fL RDW Coeff of [place] (11.5-14.5) % Plt Count (130-400) K/uL MPV (7.4-10.4) fL Immature Gran % (Auto) % Neut % (Auto) % Lymph % (Auto) % Dale % (Auto) % Eos % (Auto) % Baso % (Auto) % Neut # (Auto) (1.4-6.5) K/uL Lymph # (Auto) (1.2-3.4) K/uL Dale # (Auto) (0.11-0.59) K/uL Eos # (Auto) (0-0.5) K/uL Baso # (Auto) (0-0.2) K/uL Immature Gran # (Auto) (0.00-0.02) K/uL PT (9.0-12.0) Seconds INR (0.9-1.1) Sodium (136-145) mmol/L Potassium (3.5-5.1) mmol/L Chloride (98-107) mmol/L Carbon Dioxide (21-32) mmol/L Anion Gap (3-11) BUN (7-18) mg/dl Creatinine (0.6-1.4) mg/dl Est Cr Clr Drug Dosing ml/min Est GFR ( Amer) Est GFR (Non-Af Amer) BUN/Creatinine Ratio (10-20) Glucose (70-99) mg/dl Osmolality (280-300) mOsm/kg Calcium (8.5-10.1) mg/dl Phosphorus (2.5-4.9) mg/dl Magnesium (1.8-2.4) mg/dl Total Bilirubin (0.2-1) mg/dl Direct Bilirubin (0-0.2) mg/dl AST (15-37) U/L ALT (12-78) U/L Alkaline Phosphatase (45-117) U/L Troponin I (0-0.045) ng/ml Total Protein (6.4-8.2) gm/dl Albumin (3.4-5.0) gm/dl Lipase (73-393) U/L TSH (0.300-4.500) uIu/ml Urine Color Yellow Urine Appearance Clear (Clear) Urine pH 6.5 (4.5-7.5) Ur Specific [place] 1.012 (1.000-1.030) Urine Protein Negative (Negative) Urine Glucose (UA) Negative (Negative) Urine Ketones 1+ H (Negative) Urine Blood Negative (Negative) Urine Nitrite Negative (Negative) Urine Bilirubin Negative (Negative) Urine Urobilinogen Negative (Negative) Ur Leukocyte Esterase Negative (Negative) Urine Osmolality 302 L (500-800) mOsm/kg Ur Random Sodium mmol/L COVID-19 Eval Order SARS-CoV-2 (PCR) NEGATIVE (Negative) Influenza Type A (PCR) Negative (Neg) Influenza Type B (PCR) Negative (Neg) RSV (RT-PCR) Negative (Neg) 11/22/20 Range/Units 08:20 WBC (4.8-10.8) K/uL RBC (4.7-6.1) M/uL Hgb (14.0-18.0) g/dL Hct (42-52) % MCV (80-100) fL MCH (25-34) pg MCHC (32-36) g/dL RDW Std Deviation (36.4-46.3) fL RDW Coeff of [place] (11.5-14.5) % Plt Count (130-400) K/uL MPV (7.4-10.4) fL Immature Gran % (Auto) % Neut % (Auto) % Lymph % (Auto) % Dale % (Auto) % Eos % (Auto) % Baso % (Auto) % Neut # (Auto) (1.4-6.5) K/uL Lymph # (Auto) (1.2-3.4) K/uL Dale # (Auto) (0.11-0.59) K/uL Eos # (Auto) (0-0.5) K/uL Baso # (Auto) (0-0.2) K/uL Immature Gran # (Auto) (0.00-0.02) K/uL PT (9.0-12.0) Seconds INR (0.9-1.1) Sodium (136-145) mmol/L Potassium (3.5-5.1) mmol/L Chloride (98-107) mmol/L Carbon Dioxide (21-32) mmol/L Anion Gap (3-11) BUN (7-18) mg/dl Creatinine (0.6-1.4) mg/dl Est Cr Clr Drug Dosing ml/min Est GFR ( Amer) Est GFR (Non-Af Amer) BUN/Creatinine Ratio (10-20) Glucose (70-99) mg/dl Osmolality (280-300) mOsm/kg Calcium (8.5-10.1) mg/dl Phosphorus (2.5-4.9) mg/dl Magnesium (1.8-2.4) mg/dl Total Bilirubin (0.2-1) mg/dl Direct Bilirubin (0-0.2) mg/dl AST (15-37) U/L ALT (12-78) U/L Alkaline Phosphatase (45-117) U/L Troponin I (0-0.045) ng/ml Total Protein (6.4-8.2) gm/dl Albumin (3.4-5.0) gm/dl Lipase (73-393) U/L TSH (0.300-4.500) uIu/ml Urine Color Urine Appearance (Clear) Urine pH (4.5-7.5) Ur Specific [place] (1.000-1.030) Urine Protein (Negative) Urine Glucose (UA) (Negative) Urine Ketones (Negative) Urine Blood (Negative) Urine Nitrite (Negative) Urine Bilirubin (Negative) Urine Urobilinogen (Negative) Ur Leukocyte Esterase (Negative) Urine Osmolality (500-800) mOsm/kg Ur Random Sodium 34 mmol/L COVID-19 Eval Order SARS-CoV-2 (PCR) (Negative) Influenza Type A (PCR) (Neg) Influenza Type B (PCR) (Neg) RSV (RT-PCR) (Neg) Administered Medications Acetaminophen (Acetaminophen 325 Mg Tab) 650 mg PO Q4H PRN PRN Reason: Pain or Fever Stop: 12/22/20 10:19 Last Admin: 11/22/20 11:00 Dose: 650 mg Documented by: [id number] Aspirin (Aspirin 81 Mg Ectab) 81 mg PO HS ALBA Stop: 12/22/20 20:59 Last Admin: 11/22/20 20:55 Dose: 81 mg Documented by: [id number] Atorvastatin Calcium (Atorvastatin 20 Mg Tab) 20 mg PO DAILY ALBA Stop: 12/22/20 11:59 Last Admin: 11/22/20 13:03 Dose: 20 mg Documented by: [id number] Carbidopa/Levodopa (Carbidopa/Levodopa 25/100mg Tab) 1 tab PO TID ALBA Stop: 12/22/20 13:59 Last Admin: 11/22/20 20:56 Dose: 1 tab Documented by: [id number] Admin: 11/22/20 13:04 Dose: 1 tab Documented by: [id number] Clopidogrel Bisulfate (Clopidogrel Bisulfate 75 Mg Tab) 75 mg PO QAM ALBA Stop: 12/22/20 10:59 Last Admin: 11/22/20 12:02 Dose: 75 mg Documented by: [id number] Dapsone (Dapsone 25 Mg Tab) 25 mg PO QPM ALBA Stop: 12/22/20 20:59 Last Admin: 11/22/20 20:56 Dose: 25 mg Documented by: [id number] Dofetilide (Dofetilide 125 Mcg Capsule) 250 mcg PO Q12 [facility] Stop: 12/22/20 20:59 Last Admin: 11/22/20 20:56 Dose: 250 mcg Documented by: [id number] Duloxetine HCl (Duloxetine Hcl 30 Mg Cap) 30 mg PO DAILY [facility] Stop: 12/22/20 10:59 Last Admin: 11/22/20 12:02 Dose: 30 mg Documented by: [id number] Enoxaparin Sodium (Enoxaparin Inj 40 Mg/0.4 Ml Syr) 40 mg SQ Q24H [facility]BA Stop: 12/22/20 20:59 Last Admin: 11/22/20 20:57 Dose: 40 mg Documented by: [id number] Fluticasone Propionate (Fluticasone Propionate Na Spr 16 Gm Btl) 2 sprays NA HS [facility] Stop: 12/22/20 20:59 Last Admin: 11/22/20 21:03 Dose: 2 sprays Documented by: [id number] Insulin Aspart (Insulin Aspart 100 Units/Ml 3 Ml Pen) 0 units SC ACHS [facility] Stop: 12/22/20 11:29 Last Admin: 11/22/20 20:37 Dose: Not Given Documented by: [id number] Cosigned by: [id number] Admin: 11/22/20 17:14 Dose: Not Given Documented by: [id number] Cosigned by: [id number] Admin: 11/22/20 13:02 Dose: 1 units Documented by: [id number] Cosigned by: [id number] Insulin Glargine (Insulin Glargine Solostar 100 Units/Ml 3 Ml Pen) 0 - 7 units SC BID [facility]; Protocol Stop: 12/22/20 11:59 Last Admin: 11/22/20 21:11 Dose: Not Given Documented by: [id number] Admin: 11/22/20 13:03 Dose: 4 units Documented by: [id number] Cosigned by: [id number] Metoprolol Succinate (Metoprolol Succ 50mg Ext Rel Tab) 50 mg PO BID [facility] Stop: 12/22/20 20:59 Last Admin: 11/22/20 20:54 Dose: 50 mg Documented by: [id number] Pantoprazole Sodium (Pantoprazole 40 Mg Tab) 40 mg PO BID [facility] Stop: 12/22/20 20:59 Last Admin: 11/22/20 20:55 Dose: 40 mg Documented by: [id number] Tamsulosin HCl (Tamsulosin Hcl 0.4 Mg Cap) 0.4 mg PO HS ALBA Stop: 12/22/20 20:59 Last Admin: 11/22/20 20:54 Dose: 0.4 mg Documented by: [id number] Discontinued Medications Dofetilide (Dofetilide 125 Mcg Capsule) 250 mcg PO NOW STA Stop: 11/22/20 09:07 Last Admin: 11/22/20 09:29 Dose: 250 mcg Documented by: [id number] Fentanyl Citrate (Fentanyl Citrate 100 Mcg/2 Ml Vial) 100 mcg IV NOW STA Stop: 11/22/20 07:03 Last Admin: 11/22/20 07:05 Dose: Not Given Documented by: [id number] Hydralazine HCl (Hydralazine Hcl 20 Mg/Ml Vial) 5 mg IV NOW STA Stop: 11/22/20 10:38 Last Admin: 11/22/20 11:44 Dose: Not Given Documented by: [id number] Magnesium Sulfate/Dextrose (Magnesium Sulfate / D5w) 1 gm in 100 mls @ 100 mls/hr IV Q1H [facility]BA Stop: 11/22/20 09:13 Last Infusion: 11/22/20 09:33 Dose: 0 mls/hr Documented by: [id number] Admin: 11/22/20 08:31 Dose: 100 mls/hr Documented by: [id number] Infusion: 11/22/20 08:31 Dose: 0 mls/hr Documented by: [id number] Admin: 11/22/20 07:26 Dose: 100 mls/hr Documented by: [id number] Sodium Chloride (Nss 1000ml) 1,000 mls @ 999 mls/hr IV .Q1H1M ONE Stop: 11/22/20 08:12 Last Infusion: 11/22/20 08:31 Dose: 0 mls/hr Documented by: [id number] Admin: 11/22/20 07:26 Dose: 999 mls/hr Documented by: [id number] Sodium Chloride (Nss 1000ml) 1,000 mls @ 75 mls/hr IV .[id number] ALBA Stop: 12/22/20 09:29 Last Infusion: 11/22/20 15:11 Dose: 0 mls/hr Documented by: [id number] Admin: 11/22/20 11:43 Dose: 110 mls/hr Documented by: [id number] Potassium Chloride (K Capo / Wtr) 10 meq in 100 mls @ 100 mls/hr IV Q1H [facility]BA Stop: 11/22/20 12:44 Last Infusion: 11/22/20 15:00 Dose: 0 mls/hr Documented by: [id number] Admin: 11/22/20 12:59 Dose: 100 mls/hr Documented by: [id number] Infusion: 11/22/20 12:43 Dose: 100 mls/hr Documented by: [id number] Admin: 11/22/20 11:43 Dose: 100 mls/hr Documented by: [id number] Metoprolol Succinate (Metoprolol Succ 50mg Ext Rel Tab) 50 mg PO NOW STA Stop: 11/22/20 09:07 Last Admin: 11/22/20 09:29 Dose: 50 mg Documented by: [id number] Potassium Chloride (Potassium Chloride Crtab 20 Meq Tabcr) 40 meq PO NOW STA Stop: 11/22/20 08:52 Last Admin: 11/22/20 09:06 Dose: 40 meq Documented by: [id number] Valsartan (Valsartan 80 Mg Tab) 80 mg PO NOW STA Stop: 11/22/20 09:07 Last Admin: 11/22/20 09:29 Dose: 80 mg Documented by: [id number] Discharge Plan Visit Data Chief Complaint: Fall Stated Complaint: FALL/WEAK ED Provider: Braxton Palomo Discharge Problem: Dehydration with hyponatremia, Fall, Gait instability, Weakness Patient Disposition: Admitted As Inpatient Discharge Instructions Interventions: ED Discharge Assessment Last Done: 11/22/20 09:42
[2020-11-22] MEDS: MAGNESIUM SULFATE / D5W 1 GM/100 ML BAG IV SCH ×2 (07:26→08:31)
[2020-11-22 07:44] LABS: Basophils # (auto) 0.01 K/uL (0-0.2); Basophils % (auto) 0.1 %; Eosinophils # (auto) 0.04 K/uL (0-0.5); Eosinophils % (auto) 0.3 %; Immature Granulocytes # (auto) 0.05 K/uL (0.00-0.02); Immature Granulocytes % (auto) 0.4 %; Lymphocytes # (auto) 1.85 K/uL (1.2-3.4); Lymphocytes % (auto) 13.1 %; Monocytes # (auto) 1.13 K/uL (0.11-0.59); Neutrophils # (auto) 11.05 K/uL (1.4-6.5); Neutrophils % (auto) 78.1 %
--- NOTE | 2020-11-22 07:55 | CT Scan Report ---
CT OF THE HEAD WITHOUT CONTRAST CLINICAL HISTORY: Weakness. Fall. COMPARISON STUDY: Head CT and CTA of the head March 15, 2020. MRI of the brain July 01, 2020. CT DOSE: 729.78 mGycm TECHNIQUE: Helical axial images of the head were obtained without IV contrast. Automated exposure con trol was utilized for the study. A dose lowering technique was utilized adhering to the principles o f ALARA. FINDINGS: No acute intracranial hemorrhage, midline shift or mass effect is present. The ventricular system is unremarkable. White matter hypodensities are unchanged and suggest small vessel disease. Th e basal cisterns are patent. No extra-axial collections are present. There are no findings to suggest acute dural sinus thrombosis or acute territorial infarct. No significant calvarial abnormalities ar e present. Polypoid mucosal thickening within the ethmoid sinuses is again noted. IMPRESSION: 1. No acute intracranial findings. 2. No calvarial fracture. ACT 112: Negative or not required by law. Electronically signed by: Len Simons M.D. 11/22/2020 7:53 AM
[2020-11-22 08:21] LABS: Influenza A virus by PCR Negative (Neg); Influenza B virus by PCR Negative (Neg); RSV by PCR Negative (Neg); SARS CoV2 RNA(COVID-19) InHosp NEGATIVE (Negative)
[2020-11-22 08:35] LABS: Appearance Urine Clear (Clear); Bilirubin Urine Negative (Negative); Blood Urine Negative (Negative); Color Urine Yellow; Glucose Urine UA Negative (Negative); Ketones Urine 1+ (Negative); Leukocyte Esterase Urine Negative (Negative); Nitrite Urine Negative (Negative); Protein Urine Negative (Negative); Specific Gravity Urine 1.012 (1.000-1.030); Urobilinogen Urine Negative (Negative); pH Urine 6.5 (4.5-7.5)
[2020-11-22] MEDS ORDERED: POTASSIUM CHLORIDE CRTAB 20 MEQ TABCR PO STA (08:51)
[2020-11-22] MEDS ORDERED: VALSARTAN 80 MG TAB PO STA (09:06)
[2020-11-22] MEDS ORDERED: DOFETILIDE 125 MCG CAPSULE PO STA (09:06)
[2020-11-22] MEDS ORDERED: METOPROLOL SUCC 50MG EXT REL TAB PO STA (09:06)
--- NOTE | 2020-11-22 09:25 | History & Physical Report ---
Date of Service November 22, 2020 Assessment & Plan (1) Dehydration with hyponatremia: (2) Hypochloremia: (3) Fall: (4) Weakness: This is a 75-year-old male who has significant past medical history of T2DM, diabetic polyneuropathy, HTN, HLD, CAD with history of angioplasty, PAF with history of pulmonary vein isolation and watchman procedure, CKD stage III, history of ITP on dapsone, history of non-Hodgkin's lymphoma in remission and gait instability who presents to ED secondary to nausea, vomiting and diarrhea for 2 days as well as bilateral lower extremity weakness. Patient with hypotonic hyponatremia in setting of dehydration due to poor p.o. intake, nausea, vomiting and diarrhea as well as Lasix therapy. He states ever since starting Ozempic as well as Sinemet he has overall had poor p.o. intake and nausea. Medications could be contributing. After 1 L of IVF and 2 g of magnesium sulfate sodium improved from 125-129. Hyponatremia acute in onset, last sodium on 09/19/2020 was 137. Admit to med telemetry Continue IVF 110 cc/h Repeat BMP at 2 PM and every 4 hours, will not correct greater than 8 mmol Consult nephrology Strict intake and output hold lasix Clear liquid diet for now, advance as tolerated PT/OT KUB to rule out obstruction Stool studies and C. difficile study (5) Hypokalemia: Initial K3.7 Received 40 M EQ p.o. After 1 L of IVF, K now 3.4 10 mEq IV K rider x2 ordered Replete as necessary (6) Diabetes mellitus type 2 in nonobese: Controlled, last A1c 6.0 on 09/19 Hold Metformin and glipizide Was due for Ozempic yesterday, but did not take -feels this has been causing him nausea and poor appetite for 2 to 3 months May need reevaluation of Ozempic with PCP (7) Gait instability: (8) Polyneuropathy associated with underlying disease: Secondary to diabetes On Cymbalta Following with neurology secondary to gait instability at [place] Recently started on Sinemet (9) Atrial fibrillation: Chronic PAF, rate and rhythm controlled history of watchman procedure and pulmonary vein isolation Continue dofetilide and metoprolol -give dose now as missed morning dose (10) CAD (coronary artery disease): History of angioplasty Continue ASA, statin, Plavix, metoprolol and valsartan HTN Blood pressure elevated in ED, likely in setting of missed medication Give metoprolol and valsartan now Hold Lasix Monitor (11) Prolonged QT interval: QTC 499ms Avoid QT prolonging agents (12) History of ITP: Continue dapsone (13) DVT prophylaxis: Lovenox Dispo: med tele, discharge planning, PT/OT ordered PCP: Christine FULL CODE Pt was seen and examined in collaboration with Dr. Grissom, please see addendum History of Present Illness Chief Complaint: N/V/D x 2 days. Primary Care Provider: Noble King, DO This is a 75-year-old male who has significant past medical history of T2DM, diabetic polyneuropathy, HTN, HLD, CAD with history of angioplasty, PAF with history of pulmonary vein isolation and watchman procedure, CKD stage III, history of ITP on dapsone, history of non-Hodgkin's lymphoma in remission and gait instability who presents to ED secondary to nausea, vomiting and diarrhea for 2 days as well as bilateral lower extremity weakness. Prior to arrival to hospital patient was trying to ambulate to restroom when he felt overall weak, legs gave out and he fell on his bottom. He denies loss of consciousness, hitting his head or syncope. He does admit to being lightheaded and dizzy, but this is not new. He states that starting Saturday he overall did not feel well, was nauseated, had 3 episodes of vomiting and one episode of diarrhea. This is lasted for approximately 2 days. No known sick contacts. Overall poor appetite and has not ate or drank much for 2 days. He states for the past 2 to 3 months after starting Ozempic as well as Sinemet he has had significantly decrease in appetite and persistent nausea. He has been taking his home medications, except for last evening. He denies any recent fever, chills, sweats, chest pain, shortness of breath, cough, hemoptysis, URI symptoms, hematemesis, melena, hematochezia, dysuria, increased urgency or frequency with urination or hematuria. In ED patient remained hemodynamically stable although modestly hypertensive likely in setting of missed and medications. Lab work notable for acute hyponatremia with sodium 129, K3.7, chloride, 89, BUN 12, creatinine 1.19, glucose 126, mag 1.8, urine osmolality 302, random urine sodium 34, serum osmolality 263. He received 1 L of IVF in ED as well as 1 g mag sulfate x2. Allergies Allergy/AdvReac Type Severity Reaction Status Date / Time hydroxyzine Allergy Severe Anaphylaxis Verified 11/22/20 06:30 Gold Salts Allergy Intermediate hives Verified 11/22/20 06:30 losartan Allergy Intermediate hypotension Verified 11/22/20 06:30 triamcinolone Allergy Intermediate "pustules/r Verified 11/22/20 06:30 edness" Penicillins Allergy Mild RASH Verified 11/22/20 06:30 wheat Allergy Mild Rash Verified 11/22/20 06:30 Home Medications Medication Instructions Recorded Confirmed Type clopidogrel 75 mg PO QAM 08/27/18 11/22/20 History cyanocobalamin (vitamin B-12) 1,000 mcg PO QAM 08/27/18 11/22/20 History dapsone 25 mg PO QPM 08/27/18 11/22/20 History fluticasone propionate 2 spray INTRANASAL HS 08/27/18 11/22/20 History metformin 1,000 mg PO BID 08/27/18 11/22/20 History omeprazole 20 mg PO BID 08/27/18 11/22/20 History aspirin 81 mg PO HS 09/25/18 11/22/20 History betamethasone dipropionate 1 applic TOPICAL BID PRN 09/25/18 11/22/20 History nitroglycerin [Nitrostat] 1 dose SUBLINGUAL .PRN/UD PRN 09/25/18 11/22/20 Histor y tamsulosin [Flomax] 0.4 mg PO HS 12/11/18 11/22/20 History furosemide [Lasix] 20 mg PO DAILY 02/02/19 11/22/20 History potassium chloride 10 meq PO Q OTHER DAY 02/02/19 11/22/20 History metoprolol succinate 50 mg 50 mg PO BID tab 09/10/19 11/22/20 History tablet,extended release 24 hr glipizide 10 mg tablet 10 mg PO DAILY tab 02/26/20 11/22/20 History meclizine 12.5 mg PO TID PRN 03/03/20 11/22/20 History semaglutide [Ozempic] 0.5 mg SUBCUT WK 07/15/20 11/22/20 History acetaminophen [Acetaminophen Extra 1,000 mg PO Q8 PRN 11/22/20 11/22/20 History Strength] atorvastatin 20 mg PO DAILY 11/22/20 11/22/20 History buspirone 5 mg PO BID PRN 11/22/20 11/22/20 History carbidopa-levodopa 1 tab PO TID 11/22/20 11/22/20 History dofetilide 250 mcg PO Q12 11/22/20 11/22/20 History duloxetine 30 mg PO DAILY 11/22/20 11/22/20 History multivitamin 1 tab PO DAILY 11/22/20 11/22/20 History valsartan 80 mg PO DAILY 11/22/20 11/22/20 History Past Med/Surg History Medical History (Updated 11/22/20 @ 10:32 by Megha Campbell PA-C) Atrial fibrillation Autoimmune hemolytic anemia CAD (coronary artery disease) 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 " On 07/25/11 18:09 Dianelys Mack wrote "with neuropathy " On 07/25/11 18:09 Dianelys Mack wrote "with neuropathy " Diverticular disease of colon GERD (gastroesophageal reflux disease) Hearing deficit History of adenomatous polyp of colon History of ITP History of non-Hodgkin's lymphoma Hyperlipidemia Hypertension Myocardial infarction 2013, 2016 Osteoarthritis Thrombocytopenia Unstable angina (12/11/13) Surgical History History of arthroscopy of left shoulder History of bilateral cataract extraction History of cardiac cath 2013, 2016, 09/12/2018 History of cardiac radiofrequency ablation 04/2018 @ [facility] History of colonoscopy History of esophagogastroduodenoscopy (EGD) History of heart artery stent 2013 x1, 2016x1, 09/12/2018 x2(drug eluting stent @ [facility]) History of tonsillectomy and adenoidectomy History of tooth extraction wisdom teeth History of umbilical hernia repair Hx of exploratory laparotomy Presence of Watchman left atrial appendage closure device placed 11/27/18 @ [facility] [place] Status post cholecystectomy "1994" Status post pericardiocentesis Status post vasectomy Family History Sister Family history of diabetes mellitus Family history of reaction to anesthesia difficulty waking Mother Family history of diabetes mellitus Social History Smoking Status: Former smoker Tobacco Type: Cigarettes packs per day: 1; Years Smoked: 30; Smoking End Date: 09/1993; Second Hand Exposure: Yes (parents smoked); Hx Alcohol Use: No Hx Substance Use: No Preferred Language: Cymro Communication Ability: Effective Whipper Required: No Beliefs That Will Affect Care: None Current Living Situation: Alone current occupation: Retired Other Information That Helps Us Care for You: No Feels Safe at Home: Yes Safety Concerns: Feels Safe At This Time Assistive Devices: Cane, Glasses, Hearing Aid - Bilateral and Walker Review of Systems Review of Systems: All systems reviewed & are unremarkable except as noted in HPI & below Physical Exam Physical Exam: Constitutional: WD/WN, male, flat affect, vitals as above, NAD, sitting up in bed, pleasant, conversing easily Head: Normocephalic, Atraumatic Eyes: PERRL, conjunctivae normal, anicteric sclerae ENMT: external ear and nose normal, oropharynx normal dry mucous membrane Neck: trachea midline, no thyromegaly normal visual inspection Respiratory: normal respiratory effort, lungs clear to auscultation, no wheeze, rales, rhonchi. Normal insp/exp effort, no accessory muscle use Cardiovascular: RRR, no murmur, no edema Vessels: no JVD or carotid bruit Chest: normal inspection of chest Abdomen: normal bowel sounds, soft, nontender, no hepatosplenomegaly Musculoskeletal: no cyanosis or clubbing, extremities motor strength 5/5 Skin: no rashes, warm and dry moderate skin turgor turgor Neurologic: PERRL, EOMI, accommodation nl, no face palsy, no dysarthria CN's II-XI intact bilaterally and moves all extremities Psychiatric: A+Ox3, euthymic affect Lymphatic: no cervical or axillary lymphadenopathy : + urine clear/yellow in urinal at bedside Results & Data Results & Data ([facility]) Vital Signs (Past 12 Hours) Vital Signs Temp Pulse Resp BP Pulse Ox 11/22/20 09:00 71 19 177/85 H 95 02/16/21 08:01 65 16 95 11/22/20 08:00 66 17 171/83 H 95 11/22/20 07:47 70 14 168/107 H 96 11/22/20 07:31 69 18 96 11/22/20 07:30 70 18 167/90 H 96 11/22/20 07:00 69 16 154/93 H 95 11/22/20 06:58 70 16 156/111 H 95 11/22/20 06:18 36.8 C 72 20 183/96 H [address]: IMPRESSION: 1. No acute intracranial findings. 2. No calvarial fracture. CXR: IMPRESSION: No active disease in the chest. Medications Administered Discontinued Medications Fentanyl Citrate (Fentanyl Citrate 100 Mcg/2 Ml Vial) 100 mcg IV NOW STA Stop: 11/22/20 07:03 Last Admin: 11/22/20 07:05 Dose: Not Given Documented by: [id number] Magnesium Sulfate/Dextrose (Magnesium Sulfate / D5w) 1 gm in 100 mls @ 100 mls/hr IV Q1H ALBA Stop: 11/22/20 09:13 Last Admin: 11/22/20 08:31 Dose: 100 mls/hr Documented by: [id number] Infusion: 11/22/20 08:31 Dose: 0 mls/hr Documented by: [id number] Admin: 11/22/20 07:26 Dose: 100 mls/hr Documented by: [id number] Sodium Chloride (Nss 1000ml) 1,000 mls @ 999 mls/hr IV .Q1H1M ONE Stop: 11/22/20 08:12 Last Infusion: 11/22/20 08:31 Dose: 0 mls/hr Documented by: [id number] Admin: 11/22/20 07:26 Dose: 999 mls/hr Documented by: [id number] Potassium Chloride (Potassium Chloride Crtab 20 Meq Tabcr) 40 meq PO NOW STA Stop: 11/22/20 08:52 Last Admin: 11/22/20 09:06 Dose: 40 meq Documented by: [id number] ECG Rate (beats per minute): 72 Rhythm: normal sinus Findings: + prolonged QT (499ms) COVID-19 Results Results COVID-19 Adm Lab Results: RBC 5.07 M/uL (4.7-6.1) 11/22/20 WBC 14.13 K/uL (4.8-10.8) H 11/22/20 Hgb 15.8 g/dL (14.0-18.0) 11/22/20 Hct 43.2 % (42-52) 11/22/20 Plt Count 263 K/uL (130-400) 11/22/20 Neutrophils (%) (Auto) 78.1 % 11/22/20 Lymphocytes (%) (Auto) 13.1 % 11/22/20 Monocytes # (Auto) 1.13 K/uL (0.11-0.59) H 11/22/20 Eosinophils # (Auto) 0.04 K/uL (0-0.5) 11/22/20 Immature Granulocyte % (Auto) 0.4 % 11/22/20 Neutrophils # (Auto) 11.05 K/uL (1.4-6.5) H 11/22/20 Lymphocytes # (Auto) 1.85 K/uL (1.2-3.4) 11/22/20 Monocytes # (Auto) 1.13 K/uL (0.11-0.59) H 11/22/20 Eosinophils # (Auto) 0.04 K/uL (0-0.5) 11/22/20 Basophils # (Auto) 0.01 K/uL (0-0.2) 11/22/20 Immature Granulocyte # (Auto) 0.05 K/uL (0.00-0.02) H 11/22/20 Na 132 mmol/L (136-145) L 11/22/20 K 4.1 mmol/L (3.5-5.1) 11/22/20 Cl 99 mmol/L (98-107) 11/22/20 CO2 26 mmol/L (21-32) 11/22/20 Anion Gap 7.0 (3-11) 11/22/20 BUN 10 mg/dl (7-18) 11/22/20 Creatinine 1.04 mg/dl (0.6-1.4) 11/22/20 BUN/Creatinine Ratio 9.8 (10-20) L 11/22/20 Glucose Level 164 mg/dl (70-99) H 11/22/20 Ca 8.3 mg/dl (8.5-10.1) L 11/22/20 Phosphorus Level 2.9 mg/dl (2.5-4.9) 11/22/20 Total Bilirubin 1.6 mg/dl (0.2-1) H 11/22/20 Direct Bilirubin 0.4 mg/dl (0-0.2) H 11/22/20 AST/SGOT 22 U/L (15-37) 11/22/20 ALT/SGPT 21 U/L (12-78) 11/22/20 Alkaline Phosphatase 77 U/L (45-117) 11/22/20 Total Protein 7.6 gm/dl (6.4-8.2) 11/22/20 Albumin 4.0 gm/dl (3.4-5.0) 11/22/20 Troponin I < 0.015 ng/ml (0-0.045) 11/22/20 INR 1.1 (0.9-1.1) 11/22/20 COVID-19 PCR NEGATIVE (Negative) 11/22/20 Influenza Virus Type A (PCR) Negative (Neg) 11/22/20 Influenza Virus Type B (PCR) Negative (Neg) 11/22/20 Chest X-Ray 11/22/20 Code Status & VTE Plan Code Status Full Code VTE Prophylaxis Plan VTE Prophylaxis will be ordered: Yes Supervising Physician Co-Signing Physician Notes Patient is a 75-year-old male with history of diabetes mellitus, hypertension, coronary artery disease and other medical problems presents with history of nausea, vomiting, diarrhea since 2 weeks duration. Patient denies abdominal pain. Also states having bilateral lower extremity weakness resulting in fall while trying to ambulate. Denies any head trauma, loss of consciousness. Reports poor appetite lately. Please review HPI for complete details of presentation. Was found to have leukocytosis 14 K, hyponatremia 125, hypokalemia 3.4, urine osmolality 302, urine sodium 34. KUB showed mildly prominent nondilated air filled loops of large and small bowel throughout the abdomen and pelvis may be physiologic or reflection of mild ileus. On exam patient is moderately built and nourished, no apparent distress, normocephalic atraumatic, lungs are clear to auscultation, normal breath sounds, S1-S2, no murmur, abdomen soft, nontender, normal bowel sounds, alert, awake, oriented, grossly no focal neurologic deficits. Patient is admitted for management of nausea, vomiting, diarrhea likely secondary to medication side effects (Ozempic, Sinemet). Also to rule out infectious cause. Stool studies ordered. Hyponatremia likely secondary to acute dehydration, SIADH. Sodium levels improved with IV fluids. Appreciate nephrology input. Monitor sodium levels. Replete electrolytes as needed. PT OT, fall precautions. Advance diet as tolerated. I personally reviewed the record. Patient is interviewed and examined at bedside. Patient's care is coordinated with Megha Campbell PA-C. Please refer to the documentation above for details of patient's presentation and for discussion of other issues.
[2020-11-22] MEDS ORDERED: SODIUM CHLORIDE 0.9% 1000ML 1,000 ML IV SCH (09:30)
[2020-11-22 10:01] LABS: BUN Creatinine Ratio 9.8 (10-20); Calcium 8.4 mg/dl (8.5-10.1); Creatinine Clr Calc Pharmacy 54.1 ml/min; Est GFR (African American) 77.2; Est GFR (Non-African American) 66.6; Potassium 3.4 mmol/L (3.5-5.1)
[2020-11-22] MEDS ORDERED: PROMETHAZINE HCL 6.25 MG in SODIUM CHLORIDE 0.9% 50 ML IV PRN (10:20)
[2020-11-22] MEDS ORDERED: ALUMINUM/MAGNESIUM SUSP 30 ML UDC PO PRN (10:20)
[2020-11-22] MEDS ORDERED: ACETAMINOPHEN 325 MG TAB PO PRN (10:20)
[2020-11-22] MEDS ORDERED: MAGNESIUM HYDROXIDE SUSP 30 ML UDC PO PRN (10:20)
[2020-11-22] MEDS ORDERED: GLUCAGON FOR INJ 1 MG VIAL SQ PRN (10:20)
[2020-11-22] MEDS ORDERED: GLUCOSE 10 TABS/TUBE PO PRN (10:20)
[2020-11-22] MEDS ORDERED: CARBOHYDRATES FOR HYPOGLYCEMIA PO PRN (10:20)
[2020-11-22] MEDS ORDERED: POLYETHYLENE (MIRALAX) 17 GM PACK PO PRN (10:20)
[2020-11-22] MEDS ORDERED: GLUCOSE 40% GEL 15 GM TUBE PO PRN (10:20)
[2020-11-22] MEDS ORDERED: DEXTROSE 50% 50 ML SYRINGE IV PRN (10:20)
--- NOTE | 2020-11-22 10:20 | XRay Report ---
KUB HISTORY: Acute generalized abdominal pain with diarrhea diarrhea COMPARISON: CT abdomen and pelvis 05/11/2020 FINDINGS: Prominent nondilated air-filled loops of large and small bowel are noted throughout the abd omen and pelvis with small bowel loops measuring up to approximately 2.5 cm and large bowel loops jazzy suring up to 4.8 cm. Cholecystectomy. No renal calculi. No ureteral calculi. No pneumoperitoneum or pneumatosis. Degenerative changes of the spine, pelvis and hips. No fracture. IMPRESSION: Mildly prominent nondilated air-filled loops of large and small bowel throughout the abdomen and pelv is may be physiologic or reflect a mild ileus. ACT 112: Negative or not required by law. The above report was generated using voice recognition software. It may contain grammatical, syntax o r spelling errors. Electronically signed by: Darren Cotto M.D. 11/22/2020 10:19 AM
[2020-11-22] MEDS ORDERED: hydrALAZINE HCL 20 MG/ML VIAL IV STA (10:37)
[2020-11-22] MEDS: POTASSIUM CHLORIDE / WTR 10 MEQ/100 ML PLCT IV SCH ×2 (11:43→12:59)
[2020-11-22] MEDS: DULoxetine HCL 30 MG CAP PO SCH (12:02)
[2020-11-22] MEDS: CLOPIDOGREL BISULFATE 75 MG TAB PO SCH (12:02)
[2020-11-22] MEDS: INSULIN ASPART 100 UNITS/ML 3 ML PEN SC SCH ×3 (13:02→20:37)
[2020-11-22] MEDS: INSULIN GLARGINE SOLOSTAR 100 UNITS/ML 3 ML PEN SC SCH ×2 (13:03→21:11)
[2020-11-22] MEDS: ATORVASTATIN 20 MG TAB PO SCH (13:03)
[2020-11-22] MEDS: CARBIDOPA/LEVODOPA 25/100MG TAB PO SCH ×2 (13:04→20:56)
[2020-11-22 14:25] LABS: BUN Creatinine Ratio 9.8 (10-20); Calcium 8.3 mg/dl (8.5-10.1); Creatinine Clr Calc Pharmacy 55.6 ml/min; Est GFR (African American) 79.9; Est GFR (Non-African American) 68.9; Potassium 4.1 mmol/L (3.5-5.1)
--- NOTE | 2020-11-22 14:36 | Consultation Report ---
DATE OF CONSULTATION: 11/22/2020 REASON FOR CONSULT: Hyponatremia. HISTORY OF PRESENT ILLNESS: The patient is a 75-year-old male who presented to the hospital earlier today with nausea, vomiting, mild diarrhea for the last 3-4 days as well as generalized weakness. He was started on Ozempic about a month ago and since then he has not felt good, but the nausea and very poor oral intake got really worse the last few days. Blood work showed a serum sodium of 125, which then improved to 129, but it is worth noting that patient does have history of hyponatremia for a long time and is usually mild. At this time, patient is getting normal saline at 110 mL per hour. Blood pressure is running higher. His magnesium was also low, which has been corrected with IV magnesium. The patient takes Lasix at home, but it seems low dose and pretty stable dose. He is not on any thiazide diuretics. Urine osmolality was done and was inappropriately high at 302. Urine sodium was 34. PAST MEDICAL AND SURGICAL HISTORY: Includes atrial fibrillation, history of coronary artery disease status post stent, type 2 diabetes on Ozempic and metformin, history of diverticulosis, history of ITP, history of non-Hodgkin's lymphoma, hypertension, osteoarthritis, multiple surgeries and was reviewed in detail from H and P. FAMILY HISTORY: Negative for renal disease or dialysis. SOCIAL HISTORY: Former smoker, quit in 1992. He lives alone. He is retired. MEDICATIONS: At home was reviewed in detail and is extensive. Of special interest to nephrology, he does take Lasix 20 mg daily. ALLERGY: List was reviewed in detail and is as per H and P. REVIEW OF SYSTEMS: As detailed in HPI, unless stated otherwise, 12 systems reviewed and negative. PHYSICAL EXAMINATION: GENERAL: Elderly white male who is not in any respiratory distress. He is awake, alert, oriented x3. HEENT: Mucous membrane is moist. NECK: Supple. No jugular venous distention. VITAL SIGNS: Most recent vital signs show blood pressure 192/96, pulse rate 78, temperature 36.6, 96% on room air. CHEST: Bilateral clear to auscultation. CARDIOVASCULAR: S1, S2 regular. ABDOMEN: Soft, nontender. EXTREMITIES: Shows no edema. LABORATORY TESTS: Reviewed in detail. Sodium was 125 and then went up to 129 after IV fluid. Magnesium was also low and corrected after IV magnesium. Urine sediment showed urine osmolality 302. Urine sodium 34, potassium 3.4, chloride 93. Hemoglobin 15.8, WBC count 14,000. ASSESSMENT AND PLAN: A 75-year-old male who is admitted with nausea, vomiting and some diarrhea for the last few days. I have been consulted for hyponatremia. Hyponatremia: This does not appear to be a brand new problem. The patient has had mild hyponatremia off and on for a long time and at the time of admission today was worse than usual at 125. I believe the etiology is underlying SIADH, but acutely worsened by poor oral intake of food as well as liquids with some degree of volume depletion. He has already received normal saline and with that sodium did go up relatively fast from 125-129. So I do not think we necessarily have to give IV fluid for too long. We need to do BMP again now to see where we are. Further management can be decided after that. In any case, the hyponatremia is not at a critical level, BMP twice daily should be enough. For the time being continue to hold Lasix. Blood pressure is running high, so do increase the dose of valsartan 260.
[2020-11-22 16:44] LABS: Cdiff Antigen Positive; Cdiff Toxin A+B Negative Cdiff Toxin (Negative)
[2020-11-22] MEDS: METOPROLOL SUCC 50MG EXT REL TAB PO SCH (20:54)
[2020-11-22] MEDS: TAMSULOSIN HCL 0.4 MG CAP PO SCH (20:54)
[2020-11-22] MEDS: PANTOprazole 40 MG TAB PO SCH (20:55)
[2020-11-22] MEDS: ASPIRIN 81 MG ECTAB PO SCH (20:55)
[2020-11-22] MEDS: DAPSONE 25 MG TAB PO SCH (20:56)
[2020-11-22] MEDS: DOFETILIDE 125 MCG CAPSULE PO SCH (20:56)
[2020-11-22] MEDS: ENOXAPARIN INJ 40 MG/0.4 ML SYR SQ SCH (20:57)
[2020-11-22] MEDS: FLUTICASONE PROPIONATE NA SPR 16 GM BTL SCH (21:03)
[2020-11-22 22:45] LABS: BUN Creatinine Ratio 7.7 (10-20); Calcium 8.4 mg/dl (8.5-10.1); Creatinine Clr Calc Pharmacy 56.7 ml/min; Est GFR (African American) 81.8; Est GFR (Non-African American) 70.6; Potassium 3.8 mmol/L (3.5-5.1)
--- NOTE | 2020-11-23 05:59 | Electrocardiogram Report ---
Test Reason : Blood Pressure : / mmHG Vent. Rate : 072 BPM Atrial Rate : 072 BPM P-R Int : 162 ms QRS Dur : 094 ms QT Int : 456 ms P-R-T Axes : 007 -33 010 degrees QTc Int : 499 ms Poor data quality, interpretation may be adversely affected Normal sinus rhythm Left axis deviation Nonspecific ST abnormality Prolonged QT Abnormal ECG When compared with ECG of 15-JUL-2020 20:56, QT has lengthened Confirmed by Ronak Wallace ([id number]) on 11/23/2020 5:59:04 AM Referred By: Confirmed By:Ronak Wallace
[2020-11-23 06:30] LABS: Basophils # (auto) 0.02 K/uL (0-0.2); Basophils % (auto) 0.3 %; Eosinophils # (auto) 0.24 K/uL (0-0.5); Eosinophils % (auto) 3.4 %; Hematocrit (blood only) 38.3 % (42-52); Hemoglobin 13.7 g/dL (14.0-18.0); Immature Granulocytes # (auto) 0.02 K/uL (0.00-0.02); Immature Granulocytes % (auto) 0.3 %; Lymphocytes # (auto) 0.73 K/uL (1.2-3.4); Lymphocytes % (auto) 10.3 %; Mean Corpuscular Hemoglobin 30.9 pg (25-34); Mean Corpuscular Hgb Conc 35.8 g/dL (32-36); Mean Corpuscular Volume 86.5 fL (80-100); Mean Platelet Volume 10.2 fL (7.4-10.4); Monocytes % (auto) 21.2 %; Neutrophils # (auto) 4.57 K/uL (1.4-6.5); Neutrophils % (auto) 64.5 %; Platelet Count 207 K/uL (130-400); RDW Coefficient of Variation 12.4 % (11.5-14.5); RDW Standard Deviation 39.5 fL (36.4-46.3); Red Blood Count 4.43 M/uL (4.7-6.1); White Blood Count 7.08 K/uL (4.8-10.8)
[2020-11-23 07:02] LABS: Albumin Level 3.5 gm/dl (3.4-5.0); BUN Creatinine Ratio 8.8 (10-20); Calcium 8.3 mg/dl (8.5-10.1); Creatinine Clr Calc Pharmacy 51.6 ml/min; Magnesium 2.2 mg/dl (1.8-2.4); Potassium 3.6 mmol/L (3.5-5.1)
[2020-11-23 07:09] LABS: Albumin Globulin Ratio 1.3 (0.9-2); Bilirubin,Total 1.8 mg/dl (0.2-1); Globulin 2.7 gm/dl (2.5-4.0); Total Protein 6.2 gm/dl (6.4-8.2)
[2020-11-23] MEDS: MULTIVITAMIN TAB PO SCH (07:36)
[2020-11-23] MEDS: DULoxetine HCL 30 MG CAP PO SCH (07:36)
[2020-11-23] MEDS: CLOPIDOGREL BISULFATE 75 MG TAB PO SCH (07:37)
[2020-11-23] MEDS: DOFETILIDE 125 MCG CAPSULE PO SCH ×2 (07:37→21:09)
[2020-11-23] MEDS: CYANOCOBALAMIN 500 MCG TABLET (VITAMIN B-12) PO SCH (07:37)
[2020-11-23] MEDS: CARBIDOPA/LEVODOPA 25/100MG TAB PO SCH ×3 (07:37→21:09)
[2020-11-23] MEDS: METOPROLOL SUCC 50MG EXT REL TAB PO SCH ×2 (07:38→21:10)
[2020-11-23] MEDS: ATORVASTATIN 20 MG TAB PO SCH (07:38)
[2020-11-23] MEDS: VALSARTAN 80 MG TAB PO SCH (07:38)
[2020-11-23] MEDS: PANTOprazole 40 MG TAB PO SCH ×2 (07:38→21:09)
[2020-11-23] MEDS: INSULIN GLARGINE SOLOSTAR 100 UNITS/ML 3 ML PEN SC SCH ×2 (08:42→21:04)
[2020-11-23] MEDS: INSULIN ASPART 100 UNITS/ML 3 ML PEN SC SCH ×4 (08:42→21:04)
[2020-11-23] MEDS ORDERED: POTASSIUM CHLORIDE 10 MEQ TABCR PO SCH (09:00)
--- NOTE | 2020-11-23 09:40 | Hospitalist Progress Note ---
Date of Service November 23, 2020 Assessment & Plan (1) Dehydration with hyponatremia: (2) Hypochloremia: (3) Fall: (4) Weakness: 75-year-old male who has significant past medical history of T2DM, diabetic polyneuropathy, HTN, HLD, CAD with history of angioplasty, PAF with history of pulmonary vein isolation and watchman procedure, CKD stage III, history of ITP on dapsone, history of non-Hodgkin's lymphoma in remission and gait instability who presents to ED secondary to nausea, vomiting and diarrhea for 2 days as well as bilateral lower extremity weakness. Hypotonic hyponatremia likely secondary to poor intake, diuretics and SIADH Hyponatremia improving. Sodium now 133 Continue to hold Lasix. Got IVF [employer] D[employer] Teacher recommendations appreciated Nausea and vomiting resolved for now. Monitor bowel movements. Has not had any since yesterday. C. difficile showed positive C. difficile gene but negative toxin. Improving symptoms makes C. difficile unlikely Patient did state that he has been on Ozempic for about 2 months but GI symptoms just started few days ago. Though Ozempic can cause GI symptoms, will plan to resume this on discharge and monitor. If symptoms resume, may discuss with PCP about changing medications. PT/OT evaluation (5) Hypokalemia: (6) Diabetes mellitus type 2 in nonobese: Controlled, last A1c 6.0 on 09/19 Hold Metformin and glipizide May need reevaluation of Ozempic with PCP Continue insulin plus sliding scale (7) Gait instability: (8) Polyneuropathy associated with underlying disease: Secondary to diabetes On Cymbalta Following with neurology secondary to gait instability at [place] Recently started on Sinemet In view of fall, will get PT/OT evaluation (9) Atrial fibrillation: Chronic PAF, rate and rhythm controlled history of watchman procedure and pulmonary vein isolation Continue dofetilide and metoprolol -give dose now as missed morning dose Currently sinus (10) CAD (coronary artery disease): History of angioplasty Continue ASA, statin, Plavix, metoprolol and valsartan (11) Prolonged QT interval: QTC 499ms on admission Avoid QT prolonging agents (12) History of ITP: Continue dapsone (13) Hypertension: Currently controlled. Continue home valsartan Lasix on hold for now (14) DVT prophylaxis: Lovenox sq PCP: Christine FULL CODE Admission and Anticipated Discharge Date Admission Date: November 22, 2020 Subjective Seen and examined this morning. Reports feeling better today. Reports nausea and vomiting has resolved. Last bowel movement was yesterday. He stated that he was not sure if it was watery like prior to admission as he had an incontinent episode. Denied any fevers, chills Denies any abdominal pain, anorexia, melena Denies frequency, urgency, hematuria or incontinence Denies headache. Reports chronic intermittent dizziness. Physical Exam Constitutional: + well hydrated; no acute distress Eyes: PERRL, conjunctivae normal, anicteric sclerae ENMT: external ear and nose normal, oropharynx normal Respiratory: normal respiratory effort, lungs clear to auscultation Cardiovascular: Rate/Rhythm: regular rate and regular rhythm S1-S2, no pedal edema Gastrointestinal (Abdomen): normal bowel sounds, soft, nontender, no hepatosplenomegaly Neurologic: PERRL, EOMI, accommodation nl, no face palsy, no dysarthria Psychiatric: A+Ox3, euthymic affect Results & Data Results & Data ([facility]) Vital Signs (Past 12 Hours) Vital Signs Temp Pulse Pulse Resp BP Pulse Ox 11/23/20 07:23 36.7 C 64 20 134/83 95 11/23/20 04:08 36.3 C L 68 18 106/68 96 11/22/20 22:56 36.5 C 63 18 150/80 H 90 11/22/20 22:20 65 Laboratory Results Laboratory Results - last 24 hr 11/22/20 11/22/20 11/22/20 09:35 10:05 11:20 WBC RBC Hgb Hct MCV MCH MCHC RDW Std Deviation RDW Coeff of [place] Plt Count MPV Immature Gran % (Auto) Neut % (Auto) Lymph % (Auto) [place] % (Auto) Eos % (Auto) Baso % (Auto) Neut # (Auto) Lymph # (Auto) [place] # (Auto) Eos # (Auto) Baso # (Auto) Immature Gran # (Auto) Sodium 129 L Potassium 3.4 L Chloride 93 L Carbon Dioxide 26 Anion Gap 10.0 BUN 11 Creatinine 1.07 Est Cr Clr Drug Dosing 54.1 Est GFR ( Amer) 77.2 Est GFR (Non-Af Amer) 66.6 BUN/Creatinine Ratio 9.8 L Glucose 126 H POC Glucose 138 H 137 H Calcium 8.4 L Magnesium Total Bilirubin AST ALT Alkaline Phosphatase Total Protein Albumin Globulin Albumin/Globulin Ratio Stl C. diff Tox B Gene Stl C.difficile Tox A&B 11/22/20 11/22/20 11/22/20 13:53 14:15 16:55 WBC RBC Hgb Hct MCV MCH MCHC RDW Std Deviation RDW Coeff of [place] Plt Count MPV Immature Gran % (Auto) Neut % (Auto) Lymph % (Auto) [place] % (Auto) Eos % (Auto) Baso % (Auto) Neut # (Auto) Lymph # (Auto) [place] # (Auto) Eos # (Auto) Baso # (Auto) Immature Gran # (Auto) Sodium 132 L Potassium 4.1 D Chloride 99 Carbon Dioxide 26 Anion Gap 7.0 BUN 10 Creatinine 1.04 Est Cr Clr Drug Dosing 55.6 Est GFR ( Amer) 79.9 Est GFR (Non-Af Amer) 68.9 BUN/Creatinine Ratio 9.8 L Glucose 164 H POC Glucose 103 H Calcium 8.3 L Magnesium Total Bilirubin AST ALT Alkaline Phosphatase Total Protein Albumin Globulin Albumin/Globulin Ratio Stl C. diff Tox B Gene Positive Cdiff Gene H Stl C.difficile Tox A&B Negative Cdiff Toxin 11/22/20 11/22/20 11/23/20 20:25 21:41 06:08 WBC 7.08 RBC 4.43 L Hgb 13.7 L Hct 38.3 L MCV 86.5 MCH 30.9 MCHC 35.8 RDW Std Deviation 39.5 RDW Coeff of [place] 12.4 Plt Count 207 MPV 10.2 Immature Gran % (Auto) 0.3 Neut % (Auto) 64.5 Lymph % (Auto) 10.3 [place] % (Auto) 21.2 Eos % (Auto) 3.4 Baso % (Auto) 0.3 Neut # (Auto) 4.57 Lymph # (Auto) 0.73 L [place] # (Auto) 1.50 H Eos # (Auto) 0.24 Baso # (Auto) 0.02 Immature Gran # (Auto) 0.02 Sodium 132 L Potassium 3.8 Chloride 101 Carbon Dioxide 23 Anion Gap 8.0 BUN 8 Creatinine 1.02 Est Cr Clr Drug Dosing 56.7 Est GFR ( Amer) 81.8 Est GFR (Non-Af Amer) 70.6 BUN/Creatinine Ratio 7.7 L Glucose 95 POC Glucose 109 H Calcium 8.4 L Magnesium Total Bilirubin AST ALT Alkaline Phosphatase Total Protein Albumin Globulin Albumin/Globulin Ratio Stl C. diff Tox B Gene Stl C.difficile Tox A&B 11/23/20 11/23/20 06:08 07:43 WBC RBC Hgb Hct MCV MCH MCHC RDW Std Deviation RDW Coeff of [place] Plt Count MPV Immature Gran % (Auto) Neut % (Auto) Lymph % (Auto) [place] % (Auto) Eos % (Auto) Baso % (Auto) Neut # (Auto) Lymph # (Auto) [place] # (Auto) Eos # (Auto) Baso # (Auto) Immature Gran # (Auto) Sodium 133 L Potassium 3.6 Chloride 101 Carbon Dioxide 24 Anion Gap 8.0 BUN 10 Creatinine 1.12 Est Cr Clr Drug Dosing 51.6 Est GFR ( Amer) 73.0 Est GFR (Non-Af Amer) 63.0 BUN/Creatinine Ratio 8.8 L Glucose 115 H POC Glucose 121 H Calcium 8.3 L Magnesium 2.2 Total Bilirubin 1.8 H AST 17 ALT 11 L Alkaline Phosphatase 68 Total Protein 6.2 L Albumin 3.5 Globulin 2.7 Albumin/Globulin Ratio 1.3 Stl C. diff Tox B Gene Stl C.difficile Tox A&B
--- NOTE | 2020-11-23 10:35 | Progress Notes ---
DATE: 11/23/2020 NEPHROLOGY PROGRESS NOTE SUBJECTIVE: Overnight, no new issues. He feels significantly better and does not have any nausea, vomiting, belly pain, diarrhea at this time. He is eating normal breakfast at this time. Blood work has also improved with serum sodium now of 133, which is pretty much his baseline. OBJECTIVE: VITAL SIGNS: Blood pressure 134/83, pulse rate 64, temperature 36.7, 95% on room air. HEENT: Mucous membrane moist. NECK: Supple. No jugular venous distention. CHEST: Bilaterally clear to auscultation. CARDIOVASCULAR: S1, S2 regular. ABDOMEN: Soft, nontender. EXTREMITIES: Show no edema. LABORATORY TESTS: Reviewed. Sodium is now 133, which is his baseline. Renal function is normal. ASSESSMENT AND PLAN: A 75-year-old male admitted with nausea, vomiting, diarrhea and associated hyponatremia. Hyponatremia: This is acute on chronic. Even at baseline, he does have mild hyponatremia for the last few years with serum sodium usually in the low 130s. At the time of admission, it was much lower at 125, which was related with a prerenal component. Serum sodium is back to baseline. At this point, he does not have any gastrointestinal symptoms, so he can be put back on his low-dose Lasix that he was taking as an outpatient. No further workup is needed.
[2020-11-23] MEDS: ASPIRIN 81 MG ECTAB PO SCH (21:09)
[2020-11-23] MEDS: FLUTICASONE PROPIONATE NA SPR 16 GM BTL SCH (21:09)
[2020-11-23] MEDS: TAMSULOSIN HCL 0.4 MG CAP PO SCH (21:09)
[2020-11-23] MEDS: DAPSONE 25 MG TAB PO SCH (21:09)
[2020-11-23] MEDS: ENOXAPARIN INJ 40 MG/0.4 ML SYR SQ SCH (21:09)
--- NOTE | 2020-11-24 06:09 | Electrocardiogram Report ---
Test Reason : Blood Pressure : / mmHG Vent. Rate : 063 BPM Atrial Rate : 063 BPM P-R Int : 164 ms QRS Dur : 096 ms QT Int : 492 ms P-R-T Axes : 001 -20 015 degrees QTc Int : 503 ms Normal sinus rhythm Prolonged QT Abnormal ECG When compared with ECG of 22-NOV-2020 06:10, No significant change was found Confirmed by Ronak Wallace ([id number]) on 11/24/2020 6:08:39 AM Referred By: REFERRED SELF Confirmed By:Ronak Wallace
[2020-11-24 06:59] LABS: Hematocrit (blood only) 36.8 % (42-52); Hemoglobin 13.1 g/dL (14.0-18.0); Mean Corpuscular Hemoglobin 30.6 pg (25-34); Mean Corpuscular Hgb Conc 35.6 g/dL (32-36); Mean Platelet Volume 10.6 fL (7.4-10.4); Platelet Count 198 K/uL (130-400); RDW Coefficient of Variation 12.4 % (11.5-14.5); RDW Standard Deviation 38.5 fL (36.4-46.3); Red Blood Count 4.28 M/uL (4.7-6.1); White Blood Count 6.81 K/uL (4.8-10.8)
[2020-11-24 07:35] LABS: BUN Creatinine Ratio 8.4 (10-20); Calcium 8.4 mg/dl (8.5-10.1); Creatinine Clr Calc Pharmacy 53.6 ml/min; Est GFR (African American) 76.3; Est GFR (Non-African American) 65.9; Potassium 3.5 mmol/L (3.5-5.1)
[2020-11-24] MEDS: VALSARTAN 80 MG TAB PO SCH (07:55)
[2020-11-24] MEDS: CYANOCOBALAMIN 500 MCG TABLET (VITAMIN B-12) PO SCH (07:55)
[2020-11-24] MEDS: DULoxetine HCL 30 MG CAP PO SCH (07:55)
[2020-11-24] MEDS: ATORVASTATIN 20 MG TAB PO SCH (07:55)
[2020-11-24] MEDS: MULTIVITAMIN TAB PO SCH (07:56)
[2020-11-24] MEDS: DOFETILIDE 125 MCG CAPSULE PO SCH (07:56)
[2020-11-24] MEDS: CARBIDOPA/LEVODOPA 25/100MG TAB PO SCH (07:56)
[2020-11-24] MEDS: METOPROLOL SUCC 50MG EXT REL TAB PO SCH (07:56)
[2020-11-24] MEDS: PANTOprazole 40 MG TAB PO SCH (07:56)
[2020-11-24] MEDS: CLOPIDOGREL BISULFATE 75 MG TAB PO SCH (07:57)
[2020-11-24] MEDS: INSULIN ASPART 100 UNITS/ML 3 ML PEN SC SCH (08:37)
[2020-11-24] MEDS: INSULIN GLARGINE SOLOSTAR 100 UNITS/ML 3 ML PEN SC SCH (08:38)
[2020-11-24] MEDS ORDERED: FUROSEMIDE 40 MG TAB PO SCH (09:45)
--- NOTE | 2020-11-24 10:37 | Discharge Summary ---
Date of Service November 24, 2020 Admission HPI Per Admitting Provider This is a 75-year-old male who has significant past medical history of T2DM, diabetic polyneuropathy, HTN, HLD, CAD with history of angioplasty, PAF with history of pulmonary vein isolation and watchman procedure, CKD stage III, history of ITP on dapsone, history of non-Hodgkin's lymphoma in remission and gait instability who presents to ED secondary to nausea, vomiting and diarrhea for 2 days as well as bilateral lower extremity weakness. Prior to arrival to hospital patient was trying to ambulate to restroom when he felt overall weak, legs gave out and he fell on his bottom. He denies loss of consciousness, hitting his head or syncope. He does admit to being lightheaded and dizzy, but this is not new. He states that starting Saturday he overall did not feel well, was nauseated, had 3 episodes of vomiting and one episode of diarrhea. This is lasted for approximately 2 days. No known sick contacts. Overall poor appetite and has not ate or drank much for 2 days. He states for the past 2 to 3 months after starting Ozempic as well as Sinemet he has had significantly decrease in appetite and persistent nausea. He has been taking his home medications, except for last evening. He denies any recent fever, chills, sweats, chest pain, shortness of breath, cough, hemoptysis, URI symptoms, hematemesis, melena, hematochezia, dysuria, increased urgency or frequency with urination or hematuria. In ED patient remained hemodynamically stable although modestly hypertensive likely in setting of missed and medications. Lab work notable for acute hyponatremia with sodium 129, K3.7, chloride, 89, BUN 12, creatinine 1.19, glucose 126, mag 1.8, urine osmolality 302, random urine sodium 34, serum osmolality 263. He received 1 L of IVF in ED as well as 1 g mag sulfate x2. Admission Exam Per Admitting Provider Constitutional: WD/WN, male, flat affect, vitals as above, NAD, sitting up in bed, pleasant, conversing easily Head: Normocephalic, Atraumatic Eyes: PERRL, conjunctivae normal, anicteric sclerae ENMT: external ear and nose normal, oropharynx normal dry mucous membrane Neck: trachea midline, no thyromegaly normal visual inspection Respiratory: normal respiratory effort, lungs clear to auscultation, no wheeze, rales, rhonchi. Normal insp/exp effort, no accessory muscle use Cardiovascular: RRR, no murmur, no edema Vessels: no JVD or carotid bruit Chest: normal inspection of chest Abdomen: normal bowel sounds, soft, nontender, no hepatosplenomegaly Musculoskeletal: no cyanosis or clubbing, extremities motor strength 5/5 Skin: no rashes, warm and dry moderate skin turgor turgor Neurologic: PERRL, EOMI, accommodation nl, no face palsy, no dysarthria CN's II-XI intact bilaterally and moves all extremities Psychiatric: A+Ox3, euthymic affect Lymphatic: no cervical or axillary lymphadenopathy : + urine clear/yellow in urinal at bedside Principal Diagnosis Hyponatremia Dehydration Fall Discharge Exam Constitutional + well hydrated; no acute distress Eyes PERRL, conjunctivae normal, anicteric sclerae ENMT external ear and nose normal, oropharynx normal Respiratory normal respiratory effort, lungs clear to auscultation Cardiovascular Rate/Rhythm: regular rate and regular rhythm S1-S2 no pedal edema Gastrointestinal (Abdomen) normal bowel sounds, soft, nontender, no hepatosplenomegaly Musculoskeletal no cyanosis or clubbing, extremities motor strength 5/5 Neurologic PERRL, EOMI, accommodation nl, no face palsy, no dysarthria Psychiatric A+Ox3, euthymic affect Discharge Data Allergies Allergy/AdvReac Type Severity Reaction Status Date / Time hydroxyzine Allergy Severe Anaphylaxis Verified 11/22/20 06:30 Gold Salts Allergy Intermediate hives Verified 11/22/20 06:30 losartan Allergy Intermediate hypotension Verified 11/22/20 06:30 triamcinolone Allergy Intermediate "pustules/r Verified 11/22/20 06:30 edness" Penicillins Allergy Mild RASH Verified 11/22/20 06:30 wheat Allergy Mild Rash Verified 11/22/20 06:30 Consultations 11/22/20 08:12 ED Decision to Admit Stat 11/22/20 09:24 Consult Nephrology Routine 11/22/20 10:20 Consult Case Management - Discharge Planning Routine Ordered Studies 11/22/20 07:12 CT head/brain wo con Stat No acute intracranial hemorrhage, midline shift or mass effect is present. The ventricular system is unremarkable. White matter hypodensities are unchanged and suggest small vessel disease. The basal cisterns are patent. No extra-axial collections are present. There are no findings to suggest acute dural sinus thrombosis or acute territorial infarct. No significant calvarial abnormalities are present. Polypoid mucosal thickening within the ethmoid sinuses is again noted. IMPRESSION: 1. No acute intracranial findings. 2. No calvarial fracture. Hospital Course (1) Dehydration with hyponatremia: (2) Hypochloremia: (3) Fall: (4) Hypokalemia: (5) Weakness: 75-year-old male who has significant past medical history of T2DM, diabetic polyneuropathy, HTN, HLD, CAD with history of angioplasty, PAF with history of pulmonary vein isolation and watchman procedure, CKD stage III, history of ITP on dapsone, history of non-Hodgkin's lymphoma in remission and gait instability who presents to ED secondary to nausea, vomiting and diarrhea for 2 days as well as bilateral lower extremity weakness. Hypotonic hyponatremia likely secondary to poor intake, diuretics and SIADH Sodium was 129 on admission Serum osmolality is 263 Urine osmolality of 302 and urine sodium of 34 Patient does have history of chronic hyponatremia likely SIADH that worsened likely in the setting of poor oral intake from nausea, vomiting and being on diuretic Parking Officer evaluated Required IV fluids for dehydration and symptoms managed medically Advised to follow fluid restriction per call center support representative Patient reports having loose stool. C. difficile showed positive C. difficile gene but negative toxin. Throughout hospital stay was having just 1 loose stool per day. Nausea vomiting resolved. Low suspicion for C. difficile infection Patient did state that he has been on Ozempic for about 2 months but GI symptoms just started few days ago. Though Ozempic can cause GI symptoms, was advised to resume this on discharge and monitor. If symptoms resume, may discuss with PCP about changing medications. Was evaluated by physical therapist and recommended discharge home (6) Diabetes mellitus type 2 in nonobese: Controlled, last A1c 6.0 on 09/19 Continue Metformin, glipizide and Ozempic Follow-up with PCP (7) Gait instability: (8) Polyneuropathy associated with underlying disease: Secondary to diabetes On Cymbalta Following with neurology secondary to gait instability at [place] Recently started on Sinemet (9) Atrial fibrillation: Chronic PAF, rate and rhythm controlled history of watchman procedure and pulmonary vein isolation Continue dofetilide and metoprolol Currently sinus (10) CAD (coronary artery disease): History of angioplasty Continue ASA, statin, Plavix, metoprolol and valsartan (11) Prolonged QT interval: QTC 499ms on admission Avoid QT prolonging agents (12) History of ITP: Continue dapsone (13) Hypertension: Currently controlled. Continue home valsartan Continue Lasix (14) DVT prophylaxis: Lovenox sq PCP: Christine FULL CODE Total Time Total Time Spent Total Time Spent (In Minutes): 45 Total Time Includes: Examination of the Patient, Discharge Planning, Medication Reconciliation and Communication With Other Providers Discharge Plan Discharge Items Patient Disposition: Home - Self-Care Reason For Visit: HYPONATREMIA,WEAKNESS Discharge Diagnosis: Hyponatremia Nausea and vomiting Activity: Resume your previous activity Non-emergency contact: Primary Care Provider Call non-emergency contact if: you have any medication questions Follow-up/Referrals: Noble King DO [Primary Care Provider] - (Date & Time 12/01/2020 3:00 PM Provider Noble King DO Department General Internal Medicine [facility] ) Diet: Carb Consistent or DM2 and Heart Healthy Fluids: 2000ml (8 cups) Addtl Attending Provider Instructions: Mr. Recio. You came to the hospital complaining of nausea, vomiting diarrhea and leg weakness. You were evaluated and found to have low sodium levels. You were managed medically and your sodium levels improved. Please continue to hold this and to follow-up with your primary care doctor who will do further testing to monitor. Please continue taking valsartan and lasix for your blood pressure monitor blood pressure as discussed. It is a pleasure taking care of you Pending Studies at Discharge: No Stand-Alone Forms: My [facility] [employer], Smoking Cessation Medications and DC Order Prescriptions: Continued metoprolol succinate [Toprol XL] 50 mg tablet extended release 24 hr 50 mg PO BID RF: 0 cyanocobalamin (vitamin B-12) 1,000 mcg Tablet 1,000 mcg PO QAM RF: 0 clopidogrel 75 mg tablet 75 mg PO QAM RF: 0 dapsone 25 mg tablet 25 mg PO QPM RF: 0 omeprazole 20 mg capsule,delayed release(DR/EC) 20 mg PO BID RF: 0 fluticasone propionate 50 mcg/actuation spray,suspension 2 spray Intranasal HS RF: 0 metformin 500 mg tablet extended release 24 hr 1,000 mg PO BID RF: 0 glipizide 10 mg tablet 10 mg PO DAILY RF: 0 tamsulosin [Flomax] 0.4 mg capsule 0.4 mg PO HS RF: 0 meclizine 12.5 mg Tablet 12.5 mg PO TID PRN (Reason: Dizziness) RF: 0 aspirin 81 mg Tablet,Delayed Release (Dr/Ec) 81 mg PO HS RF: 0 nitroglycerin [Nitrostat] 0.4 mg Tablet, Sublingual 1 dose Sublingual .PRN/UD PRN (Reason: Angina) RF: 0 betamethasone dipropionate 0.05 % Ointment 1 applic TOPICAL BID PRN (Reason: Rash) RF: 0 furosemide [Lasix] 20 mg Tablet 20 mg PO DAILY RF: 0 potassium chloride 10 mEq Capsule, Extended Release 10 meq PO Q OTHER DAY RF: 0 Ozempic 0.25 mg or 0.5 mg(2 mg/1.5 mL) pen injector 0.5 mg SUBCUT WK RF: 0 valsartan 80 mg tablet 80 mg PO DAILY RF: 0 dofetilide 250 mcg capsule 250 mcg PO Q12 RF: 0 buspirone 5 mg tablet 5 mg PO BID PRN (Reason: Anxiety) RF: 0 carbidopa-levodopa 25-100 mg tablet 1 tab PO TID RF: 0 atorvastatin 20 mg Tablet 20 mg PO DAILY RF: 0 acetaminophen [Acetaminophen Extra Strength] 500 mg Tablet 1,000 mg PO Q8 PRN (Reason: Fever Or Pain) RF: 0 duloxetine 30 mg capsule,delayed release(DR/EC) 30 mg PO DAILY RF: 0 multivitamin Tablet 1 tab PO DAILY RF: 0 Discharge Orders: Discharge Order (Routine); Ordered 11/24/20 Ordered By: Corrie Hannah Admission Data Admit Date/Time: 11/22/20 08:51 Attending Provider: Corrie Hannah I. Admit Provider: Ty Grissom Primary Care Provider: Noble King Other Providers: Efrain Brooks ; Ty Grissom Other Interventions: Discharge Summary Assessment (RN) Last Done: 11/24/20 10:54
--- NOTE | 2020-11-24 10:38 | Progress Notes ---
DATE: 11/24/2020 SUBJECTIVE: Overnight, no new issues. He feels back to normal. OBJECTIVE: VITAL SIGNS: Blood pressure 152/83, pulse rate 66, temperature 36.9, 93% on room air. HEENT: Mucous membranes moist. NECK: Supple. No jugular venous distention. CHEST: Bilateral clear to auscultation. CARDIOVASCULAR: S1, S2 regular. ABDOMEN: Soft, nontender. EXTREMITIES: Shows no edema. LABORATORY TESTS: From this morning was reviewed, normal renal function. Sodium is slightly lower at 130. ASSESSMENT AND PLAN: A 75-year-old male admitted with nausea, vomiting, diarrhea and associated hyponatremia. Hyponatremia: This is acute on chronic. Even at baseline, he does have mild hyponatremia for the last few years with a serum sodium usually in the low 130s. RECOMMENDATIONS: 1. He is stable for discharge. 2. Put him back on his previous dose of Lasix. 3. Encouraged higher protein intake and higher solid food intake, but decrease the fluid intake to about 1500 mL per day.
== END 2020-11-24 11:46 | disposition home or self-care (01) ==
LOC: ED 06:00 → SUATTDRO 08:51 → INTOOBSV 08:51 → 2N 08:51

== ENCOUNTER 2021-06-28 15:52 | Observation (INO) ==
--- NOTE | 2021-06-28 15:57 | Emergency Department Note ---
History of Present Illness General Chief complaint: Stroke Alert Time Seen by Provider: 06/28/21 15:55 Source: EMS Mode of arrival: EMS Limitations: clinical acuity History of Present Illness Provider complaint: possible CVA Onset (ago): hour(s) This is a 76-year-old male brought in by EMS as a stroke alert from the field. Per EMS patient last seen well approximately an hour and a half ago by neighbors who then contacted 911. Patient had a fall at home and pressed his life alert button initially. Patient noted by EMS to have a right facial droop and dysarthria, no extremity findings were noted. No prior history of TIA/CVA in the family. EMS did note aspirin and Plavix on the patient's medication list. He was otherwise stable during their transport and was taken immediately to CAT scan. Upon my initial evaluation in room B1, patient with dysarthria and persistent facial droop, no extremity findings no obvious sensory deficits, no deviated gaze. Patient unable to provide additional history at this time due to the dysarthria. Pt seen during a time of high acuity and national emergency pandemic while wearing PPE. Home Medications Medication Instructions Recorded Confirmed Type clopidogrel 75 mg tablet 75 mg PO QAM 08/27/18 06/28/21 History cyanocobalamin (vitamin B-12) 1,000 mcg PO QAM 08/27/18 06/28/21 History 1,000 mcg tablet dapsone 25 mg tablet 25 mg PO QPM 08/27/18 06/28/21 History fluticasone propionate 50 2 spray INTRANASAL HS 08/27/18 06/28/21 History mcg/actuation nasal spray,suspension metformin 500 mg tablet,extended 500 mg PO BID 08/27/18 06/28/21 History release 24 hr omeprazole 20 mg capsule,delayed 20 mg PO BID 08/27/18 06/28/21 History release aspirin 81 mg tablet,delayed 81 mg PO HS 09/25/18 06/28/21 History release nitroglycerin 0.4 mg sublingual 1 dose SUBLINGUAL DIRECTED PRN 09/25/18 06/28/21 History tablet (Nitrostat) tamsulosin 0.4 mg capsule (Flomax) 0.4 mg PO HS 12/11/18 06/28/21 History furosemide 20 mg tablet (Lasix) 20 mg PO Q OTHER DAY 02/02/19 06/28/21 History potassium chloride 10 mEq 10 meq PO Q OTHER DAY 02/02/19 06/28/21 History capsule,extended release metoprolol succinate 50 mg 50 mg PO BID tab 09/10/19 06/28/21 History tablet,extended release 24 hr (Toprol XL) glipizide 10 mg tablet 10 mg PO DAILY tab 02/26/20 06/28/21 History acetaminophen 500 mg tablet 1,000 mg PO Q8 PRN 11/22/20 06/28/21 History (Acetaminophen Extra Strength) atorvastatin 20 mg tablet 20 mg PO DAILY 11/22/20 06/28/21 History buspirone 5 mg tablet 5 mg PO BID PRN 11/22/20 06/28/21 History carbidopa 25 mg-levodopa 100 mg 1.5 tab PO TID 11/22/20 06/28/21 History tablet dofetilide 250 mcg capsule 250 mcg PO Q12 11/22/20 06/28/21 History duloxetine 30 mg capsule,delayed 30 mg PO DAILY 11/22/20 06/28/21 History release multivitamin 1 tab PO DAILY 11/22/20 06/28/21 History valsartan 80 mg tablet 40 mg PO DAILY 11/22/20 06/28/21 History linagliptin 5 mg tablet (Tradjenta) 5 mg PO DAILY 06/13/21 06/28/21 History betamethasone, augmented 0.05 % 1 applic TOPICAL BID 06/28/21 06/28/21 History topical ointment Allergies Allergy/AdvReac Type Severity Reaction Status Date / Time hydroxyzine Allergy Severe Anaphylaxis Verified 06/28/21 17:28 Gold Salts Allergy Intermediate hives Verified 06/28/21 17:28 losartan Allergy Intermediate hypotension Verified 06/28/21 17:28 triamcinolone Allergy Intermediate "pustules/r Verified 06/28/21 17:28 edness" Penicillins Allergy Mild RASH Verified 06/28/21 17:28 wheat Allergy Mild Rash Verified 06/28/21 17:28 Past Med/Surg History Medical History Atrial fibrillation Autoimmune hemolytic anemia CAD (coronary artery disease) CKD (chronic kidney disease), stage III Depression 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 " On 07/25/11 18:09 Dianelys Mack wrote "with neuropathy " On 07/25/11 18:09 Dianelys Mack wrote "with neuropathy " Diverticular disease of colon GERD (gastroesophageal reflux disease) Hearing deficit History of adenomatous polyp of colon History of ITP History of non-Hodgkin's lymphoma Hyperlipidemia Hypertension Myocardial infarction 2013, 2016 Osteoarthritis Thrombocytopenia Unstable angina (12/11/13) Surgical History History of arthroscopy of left shoulder History of bilateral cataract extraction History of cardiac cath 2013, 2016, 09/12/2018 History of cardiac radiofrequency ablation 04/2018 @ [facility] History of colonoscopy History of esophagogastroduodenoscopy (EGD) History of heart artery stent 2013 x1, 2016x1, 09/12/2018 x2(drug eluting stent @ [facility]) History of tonsillectomy and adenoidectomy History of tooth extraction wisdom teeth History of umbilical hernia repair Hx of exploratory laparotomy Presence of Watchman left atrial appendage closure device placed 11/27/18 @ [facility] Status post cholecystectomy "1994" Status post pericardiocentesis Status post vasectomy Family History Sister Family history of diabetes mellitus Family history of reaction to anesthesia difficulty waking Mother Family history of diabetes mellitus Social History Smoking Status: Former smoker Tobacco Type: Cigarettes packs per day: 1; Years Smoked: 30; Cigarettes Per Day: 1 PPD; Smoking End Date: September 12, 1993; Second Hand Exposure: No; Do You Dip or Chew Tobacco: No; Hx Alcohol Use: No Hx Substance Use: No Preferred Language: Amharic Communication Ability: Effective Mail Room Required: No Beliefs That Will Affect Care: None marital status: / Current Living Situation: Alone current occupation: Retired Other Information That Helps Us Care for You: No Feels Safe at Home: Yes Assistive Devices: Cane, Glasses, Hearing Aid - Bilateral, Hearing Aid - Left, Hearing Aid - Right and Walker Review of Systems A total of 10 systems reviewed and were otherwise negative All systems reviewed & are unremarkable except as noted in HPI & below Physical Exam Vital Signs Vital Signs - 24 hr 06/28/21 15:53 06/28/21 16:15 06/28/21 16:16 Temperature 36.8 C Temperature Source Oral Pulse Rate 70 72 Pulse Rate [Apical] 70 Pulse Rate from SpO2 Sensor 71 Pulse Rhythm Regular Pulse Strength Normal Respiratory Rate 18 22 20 Respiratory Effort / Characteristics Non-Labored Spontaneous Respiratory Depth Normal Respiratory Pattern Regular Blood Pressure 196/94 H Blood Pressure [Right Arm] 196/94 H Blood Pressure Mean 128 Blood Pressure Mean [Right Arm] 128 Pulse Oximetry 99 98 98 Oxygen Delivery Method Room Air Room Air Sepsis Recent Fever Within 48 Hours No Sepsis New/Unexplained Change in Mental Status N/A Sepsis Action Taken by Nursing No Action Required 06/28/21 16:20 06/28/21 16:30 06/28/21 16:42 Temperature Temperature Source Pulse Rate 70 63 69 Pulse Rate [Apical] Pulse Rate from SpO2 Sensor 70 64 66 Pulse Rhythm Pulse Strength Respiratory Rate 18 18 19 Respiratory Effort / Characteristics Respiratory Depth Respiratory Pattern Blood Pressure 209/102 H 189/93 H 211/98 H Blood Pressure [Right Arm] Blood Pressure Mean 137 125 135 Blood Pressure Mean [Right Arm] Pulse Oximetry 96 97 95 Oxygen Delivery Method Sepsis Recent Fever Within 48 Hours Sepsis New/Unexplained Change in Mental Status Sepsis Action Taken by Nursing 06/28/21 16:50 06/28/21 17:00 06/28/21 17:10 Temperature Temperature Source Pulse Rate 64 71 66 Pulse Rate [Apical] Pulse Rate from SpO2 Sensor 64 70 66 Pulse Rhythm Pulse Strength Respiratory Rate 18 23 15 Respiratory Effort / Characteristics Respiratory Depth Respiratory Pattern Blood Pressure 188/92 H 207/95 H 168/78 H Blood Pressure [Right Arm] Blood Pressure Mean 124 132 108 Blood Pressure Mean [Right Arm] Pulse Oximetry 99 92 93 Oxygen Delivery Method Sepsis Recent Fever Within 48 Hours Sepsis New/Unexplained Change in Mental Status Sepsis Action Taken by Nursing 06/28/21 17:21 06/28/21 17:30 06/28/21 17:40 Temperature Temperature Source Pulse Rate 64 63 69 Pulse Rate [Apical] Pulse Rate from SpO2 Sensor 65 63 70 Pulse Rhythm Pulse Strength Respiratory Rate 18 18 19 Respiratory Effort / Characteristics Respiratory Depth Respiratory Pattern Blood Pressure 144/71 H 158/69 H Blood Pressure [Right Arm] Blood Pressure Mean 95 98 Blood Pressure Mean [Right Arm] Pulse Oximetry 95 94 91 Oxygen Delivery Method Sepsis Recent Fever Within 48 Hours Sepsis New/Unexplained Change in Mental Status Sepsis Action Taken by Nursing 06/28/21 17:51 Temperature Temperature Source Pulse Rate 64 Pulse Rate [Apical] Pulse Rate from SpO2 Sensor 64 Pulse Rhythm Pulse Strength Respiratory Rate 16 Respiratory Effort / Characteristics Respiratory Depth Respiratory Pattern Blood Pressure 166/60 H Blood Pressure [Right Arm] Blood Pressure Mean 95 Blood Pressure Mean [Right Arm] Pulse Oximetry 97 Oxygen Delivery Method Sepsis Recent Fever Within 48 Hours Sepsis New/Unexplained Change in Mental Status Sepsis Action Taken by Nursing GENERAL: alert, well appearing, well nourished, no distress, non-toxic, right facial droop noted EYE EXAM: normal conjunctiva, PERRL and EOM's grossly intact OROPHARYNX: no exudate, no erythema, lips, buccal mucosa, and tongue normal and mucous membranes are moist NECK: supple, no nuchal rigidity, no adenopathy, non-tender LUNGS: Clear to auscultation. Normal chest wall mechanics, no w/r/r HEART: no murmurs, S1 normal and S2 normal ABDOMEN: abdomen soft, non-tender, normo-active bowel sounds, no masses, no rebound or guarding. BACK: Back is symmetrical on inspection and there is no deformity, no midline tenderness, no CVA tenderness. SKIN: no rashes and no bruising UPPER EXTREMITIES: upper extremities are grossly normal. FROM, nml pulses b/l. LOWER EXTREMITIES: No pitting edema. FROM, nml pulses b/l. NEURO EXAM: Normal sensorium, cranial nerves II-XII grossly intact, dysarthria, no gross weakness of arms, no gross weakness of legs. Gross sensation intact. NIHSS 5 Course Course 1615: Discussed with family. Per,[id number]. she states she got a notification at 1405 when the patient pressed his life alert button when he fell. Patient does live alone. She contacted a neighbor who went and checked on him. She states while the neighbor was present he then suddenly developed the facial droop and slurred speech which led them to call 911. She states she did not go over she herself is ill and has a pending Covid test. She states he is not anticoagulated despite having history of atrial fibrillation as he had previously had a watchman procedure and does take aspirin and Plavix. She states he has had increased falls worsening over the last 2 years with increased leg weakness. She states originally this was felt to be from diabetic neuropathy however this does continue to worsen. Patient symptoms do seem to be slightly improved compared to initial presentation. CT is pending. 1622: Discussed with [facility]. 1705: Discussed with [facility]. No tpa at this time as pt's facial droop and dysarthria have resolved. Recommends admit for additional evaluation including TIA work up. Administered Medications Betamethasone Dipropion Augmented (Betamethasone Dip Aug (Diprolene) 0.05% Cr 15 Gm Tube) 1 appln EXT BID ALBA Stop: 07/28/21 20:59 Last Admin: 06/28/21 21:58 Dose: 1 appln Documented by: [id number] Carbidopa/Levodopa (Carbidopa/Levodopa 25/100mg Tab) 1.5 tab PO TID ALBA Stop: 07/28/21 20:59 Last Admin: 06/28/21 21:59 Dose: 1.5 tab Documented by: [id number] Dapsone (Dapsone 25 Mg Tab) 25 mg PO QPM ALBA Stop: 07/28/21 20:59 Last Admin: 06/28/21 22:00 Dose: 25 mg Documented by: [id number] Dofetilide (Dofetilide 125 Mcg Capsule) 250 mcg PO Q12 ALBA Stop: 07/28/21 20:59 Last Admin: 06/28/21 22:00 Dose: 250 mcg Documented by: [id number] Fluticasone Propionate (Fluticasone Propionate Na Spr 16 Gm Btl) 2 sprays EMANI HS ALBA Stop: 07/28/21 20:59 Last Admin: 06/28/21 21:58 Dose: 2 sprays Documented by: [id number] Insulin Aspart (Insulin Aspart 100 Units/Ml 3 Ml Pen) 0 units SC ACHS ALBA Stop: 07/28/21 20:59 Last Admin: 06/28/21 22:01 Dose: 1 units Documented by: [id number] Cosigned by: [id number] Insulin Glargine (Insulin Glargine Solostar 100 Units/Ml 3 Ml Pen) 0 units SC BID ALBA Stop: 07/28/21 20:59 Last Admin: 06/28/21 22:01 Dose: 5 units Documented by: [id number] Cosigned by: [id number] Metoprolol Succinate (Metoprolol Succ 50mg Ext Rel Tab) 50 mg PO BID ALBA Stop: 07/28/21 20:59 Last Admin: 06/28/21 21:59 Dose: 50 mg Documented by: [id number] Pantoprazole Sodium (Pantoprazole 40 Mg Tab) 40 mg PO BID ALBA Stop: 07/28/21 20:59 Last Admin: 06/28/21 22:00 Dose: 40 mg Documented by: [id number] Tamsulosin HCl (Tamsulosin Hcl 0.4 Mg Cap) 0.4 mg PO HS ALBA Stop: 07/28/21 20:59 Last Admin: 06/28/21 21:59 Dose: 0.4 mg Documented by: [id number] Discontinued Medications Aspirin (Aspirin 81 Mg Chew) 162 mg PO NOW STA Stop: 06/28/21 18:29 Last Admin: 06/28/21 18:41 Dose: 162 mg Documented by: [id number] Nicardipine HCl 25 mg/ Sodium (Chloride) 250 mls @ 0 mls/hr IV .Q0M ALBA; Protocol Stop: 07/28/21 16:59 Last Titration: 06/28/21 21:00 Dose: 0 mg/hr, 0 mls/hr Documented by: [id number] Titration: 06/28/21 17:11 Dose: 0 mg/hr, 0 mls/hr Documented by: [id number] Admin: 06/28/21 16:58 Dose: 2.5 mg/hr, 25 mls/hr Documented by: [id number] Cosigned by: [id number] Ioversol (Optiray 320 125ml) 120 ml IV ONCE ONE Stop: 06/28/21 16:17 Last Admin: 06/28/21 16:16 Dose: 120 ml Documented by: [id number] Ondansetron HCl (Ondansetron Inj 2 Mg/Ml 2 Ml Vial) Confirm Administered Dose 4 mg .ROUTE .STK-MED ONE Stop: 06/28/21 16:11 Last Admin: 06/28/21 16:12 Dose: 4 mg Documented by: [id number] Critical Care Time Critical Care Time: Yes Total Critical Care Time: 45 Critical care of 45 min performed to assess and manage high likelihood of life- threatening CVA and hypertension, involving labs and imaging performed with ass essment to evaluate CVA diagnosis with frequent reassessment. This time includes bedside time, treatment discussions with patient/family/consultants, documentation time and excludes procedure time. Medical Decision Making Differential Diagnosis Differential Diagnosis includes but is not limited to ischemic Stroke, hemorr hagic stroke, bells palsy, mass, neoplasm, migraine headache, seizure, subarachnoid hemorrhage, TIA, and transient global amnesia. Medical Records Attestation: I reviewed the patient's medical records. Home Medications Current Medication List: was personally reviewed by me Laboratory Data Attestation: I reviewed the patient's lab results. Result diagrams: 06/28/21 15:43 06/28/21 15:43 Lab Results 06/28/21 06/28/21 06/28/21 Range/Units 15:43 15:43 15:43 WBC 10.11 (4.8-10.8) K/uL RBC 4.77 (4.7-6.1) M/uL Hgb 15.0 (14.0-18.0) g/dL Hct 42.3 (42-52) % MCV 88.7 (80-100) fL MCH 31.4 (25-34) pg MCHC 35.5 (32-36) g/dL RDW Std Deviation 40.2 (36.4-46.3) fL RDW Coeff of [place] 12.4 (11.5-14.5) % Plt Count 252 (130-400) K/uL MPV 10.9 H (7.4-10.4) fL Immature Gran % (Auto) 0.5 % Neut % (Auto) 76.4 % Lymph % (Auto) 7.1 % Daniels % (Auto) 12.7 % Eos % (Auto) 3.1 % Baso % (Auto) 0.2 % Neut # (Auto) 7.73 H (1.4-6.5) K/uL Lymph # (Auto) 0.72 L (1.2-3.4) K/uL Daniels # (Auto) 1.28 H (0.11-0.59) K/uL Eos # (Auto) 0.31 (0-0.5) K/uL Baso # (Auto) 0.02 (0-0.2) K/uL Immature Gran # (Auto) 0.05 H (0.00-0.02) K/uL PT 10.0 (9.0-12.0) Seconds INR 1.0 (0.9-1.1) Sodium 132 L (136-145) mmol/L Potassium 3.9 (3.5-5.1) mmol/L Chloride 96 L (98-107) mmol/L Carbon Dioxide 27 (21-32) mmol/L Anion Gap 9.0 (3-11) BUN 10 (7-18) mg/dl Creatinine 1.26 (0.6-1.4) mg/dl Est Cr Clr Drug Dosing Not Reportable Est GFR ( Amer) 62.9 ml/min Est GFR (Non-Af Amer) 54.3 ml/min BUN/Creatinine Ratio 8.3 L (10-20) Glucose 217 H (70-99) mg/dl POC Glucose (70-99) mg/dl Calcium 9.1 (8.5-10.1) mg/dl Magnesium 2.0 (1.8-2.4) mg/dl Total Bilirubin 1.0 (0.2-1) mg/dl AST 17 (15-37) U/L ALT 12 (12-78) U/L Alkaline Phosphatase 103 (45-117) U/L Troponin I < 0.015 (0-0.045) ng/ml NT-Pro-B Natriuret Pep (0-1800) pg/ml Total Protein 7.4 (6.4-8.2) gm/dl Albumin 3.9 (3.4-5.0) gm/dl Globulin 3.5 (2.5-4.0) gm/dl Albumin/Globulin Ratio 1.1 (0.9-2) Specimen Hemolysis COVID-19 Eval Order SARS-CoV-2 (PCR) (Negative) 06/28/21 06/28/21 06/28/21 Range/Units 15:43 16:15 16:23 WBC (4.8-10.8) K/uL RBC (4.7-6.1) M/uL Hgb (14.0-18.0) g/dL Hct (42-52) % MCV (80-100) fL MCH (25-34) pg MCHC (32-36) g/dL RDW Std Deviation (36.4-46.3) fL RDW Coeff of [place] (11.5-14.5) % Plt Count (130-400) K/uL MPV (7.4-10.4) fL Immature Gran % (Auto) % Neut % (Auto) % Lymph % (Auto) % Daniels % (Auto) % Eos % (Auto) % Baso % (Auto) % Neut # (Auto) (1.4-6.5) K/uL Lymph # (Auto) (1.2-3.4) K/uL Daniels # (Auto) (0.11-0.59) K/uL Eos # (Auto) (0-0.5) K/uL Baso # (Auto) (0-0.2) K/uL Immature Gran # (Auto) (0.00-0.02) K/uL PT (9.0-12.0) Seconds INR (0.9-1.1) Sodium (136-145) mmol/L Potassium (3.5-5.1) mmol/L Chloride (98-107) mmol/L Carbon Dioxide (21-32) mmol/L Anion Gap (3-11) BUN (7-18) mg/dl Creatinine (0.6-1.4) mg/dl Est Cr Clr Drug Dosing Est GFR ( Amer) ml/min Est GFR (Non-Af Amer) ml/min BUN/Creatinine Ratio (10-20) Glucose (70-99) mg/dl POC Glucose 226 H (70-99) mg/dl Calcium (8.5-10.1) mg/dl Magnesium (1.8-2.4) mg/dl Total Bilirubin (0.2-1) mg/dl AST (15-37) U/L ALT (12-78) U/L Alkaline Phosphatase (45-117) U/L Troponin I (0-0.045) ng/ml NT-Pro-B Natriuret Pep 1037 (0-1800) pg/ml Total Protein (6.4-8.2) gm/dl Albumin (3.4-5.0) gm/dl Globulin (2.5-4.0) gm/dl Albumin/Globulin Ratio (0.9-2) Specimen Hemolysis COVID-19 Eval Order Covid19 at [facility] SARS-CoV-2 (PCR) (Negative) 06/28/21 Range/Units 16:23 WBC (4.8-10.8) K/uL RBC (4.7-6.1) M/uL Hgb (14.0-18.0) g/dL Hct (42-52) % MCV (80-100) fL MCH (25-34) pg MCHC (32-36) g/dL RDW Std Deviation (36.4-46.3) fL RDW Coeff of [place] (11.5-14.5) % Plt Count (130-400) K/uL MPV (7.4-10.4) fL Immature Gran % (Auto) % Neut % (Auto) % Lymph % (Auto) % Daniels % (Auto) % Eos % (Auto) % Baso % (Auto) % Neut # (Auto) (1.4-6.5) K/uL Lymph # (Auto) (1.2-3.4) K/uL Daniels # (Auto) (0.11-0.59) K/uL Eos # (Auto) (0-0.5) K/uL Baso # (Auto) (0-0.2) K/uL Immature Gran # (Auto) (0.00-0.02) K/uL PT (9.0-12.0) Seconds INR (0.9-1.1) Sodium (136-145) mmol/L Potassium (3.5-5.1) mmol/L Chloride (98-107) mmol/L Carbon Dioxide (21-32) mmol/L Anion Gap (3-11) BUN (7-18) mg/dl Creatinine (0.6-1.4) mg/dl Est Cr Clr Drug Dosing Est GFR ( Amer) ml/min Est GFR (Non-Af Amer) ml/min BUN/Creatinine Ratio (10-20) Glucose (70-99) mg/dl POC Glucose (70-99) mg/dl Calcium (8.5-10.1) mg/dl Magnesium (1.8-2.4) mg/dl Total Bilirubin (0.2-1) mg/dl AST (15-37) U/L ALT (12-78) U/L Alkaline Phosphatase (45-117) U/L Troponin I (0-0.045) ng/ml NT-Pro-B Natriuret Pep (0-1800) pg/ml Total Protein (6.4-8.2) gm/dl Albumin (3.4-5.0) gm/dl Globulin (2.5-4.0) gm/dl Albumin/Globulin Ratio (0.9-2) Specimen Hemolysis COVID-19 Eval Order SARS-CoV-2 (PCR) NEGATIVE (Negative) Imaging Data Radiologist's Impression: Chest X-Ray 06/28/21 15:55 XR chest 1V portable CLINICAL HISTORY: Stroke Like Symptoms COMPARISON STUDY: Chest radiograph January 20, 2021. Chest CT 06/13/2021. FINDINGS: Left humeral proximal internal fixation is partially imaged. Lung volumes are mildly diminished. There is no pneumothorax or pleural effusion. There is cardiomegaly. There is pulmonary vascular congestion. No consolidation is identified. IMPRESSION: 1. Cardiomegaly with pulmonary vascular congestion. 2. Low lung volumes. ACT 112: Negative or not required by law. Electronically signed by: Len Simons M.D. 06/28/2021 4:[address] 06/28/21 15:55 CT head/brain wo con Clinical Indication: MN ^Stroke Like Symptoms . Technique: Contiguous axial CT images of the head were acquired from the base of the skull to the vertex without intravenous contrast administration. Images were viewed in brain, subdural and bone windows. Automated dose lowering techniques and/or adjustment according to patient size were utilized for this exam. Comparison: None available at the time of this dictation. Findings: Areas of decreased attenuation are present in the periventricular and subcortical white matter bilaterally consistent with small vessel ischemic disease. Generalized cerebral atrophy with commensurate enlargement of the ventricles, sulci, and cisterns is also present. There is no acute intracranial hemorrhage or evidence of acute territorial infarction. No shift of the midline structures, mass effect, or extra-axial abnormalities are shown. Atherosclero tic calcifications are present in the intracranial segments of the internal carotid arteries. 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 Mucous filling of the ethmoid sinuses noted. The orbits appear normal. There are no acute fractures of the calvaria or scalp swelling. Impression: No acute intracranial hemorrhage, evidence of acute territorial infarction, or other acute intracranial disease process. ACT 112: Negative or not required by law. Electronically signed by: Dequan Ramsay M.D. 06/28/2021 4:19 PM Head CTA 06/28/21 15:55 CT angio head w con Clinical Indication: MN ^Stroke Like Symptoms . TECHNIQUE: Contiguous axial CT images of the head were acquired from the base of the skull to the vertex without intravenous contrast administration. CT angiography of the head and neck was performed following intravenous administration of 75 mL of Omnipaque 350 injected at a rate of 5 cc/sec. Multiple MIP images in axial, coronal, and sagittal planes and 3D surfaced rendered images were then acquired using the source data. Automated dose lowering techniques and/or adjustment according to patient size were utilized for this examination. Comparison: Comparison is made to CT head 06/28/2021 FINDINGS: CTA Neck: The left common carotid artery shares common origin with the [place] artery. Atherosclerotic plaque is present in the aortic arch and at the origin of the great vessels. Atherosclerotic plaque is present at the origin of the right vertebral artery. The common carotid, external carotid, cervical segments of the internal carotid arteries, and the cervical segments of the vertebral arteries are patent. There is mild calcified atherosclerotic plaque at the bifurcation of the bilateral common carotid arteries without hemodynamically significant flow stenosis. There is no dissection present. The right vertebral artery is dominant. CTA Head: The anterior and posterior cerebral circulations are patent. No hemodynamically significant stenosis, aneurysm, dissection, or arteriovenous malformation is shown. Atherosclerotic disease is noted. IMPRESSION: 1. No occlusion, hemodynamically significant stenosis, aneurysm, dissection, or arteriovenous malformation in the major intracranial arteries. 2. No occlusion, hemodynamically significant stenosis, or dissection in the major cervical arteries. Assessment of stenosis of the internal carotid arteries is based on NASCET criteria. ACT 112: Negative or not required by law. Electronically signed by: Dequan Ramsay M.D. 06/28/2021 4:53 PM Neck CTA 06/28/21 15:55 CT angio head w con Clinical Indication: MN ^Stroke Like Symptoms . TECHNIQUE: Contiguous axial CT images of the head were acquired from the base of the skull to the vertex without intravenous contrast administration. CT angiography of the head and neck was performed following intravenous admi nistration of 75 mL of Omnipaque 350 injected at a rate of 5 cc/sec. Multiple MIP images in axial, coronal, and sagittal planes and 3D surfaced rendered images were then acquired using the source data. Automated dose lowering techniques and/or adjustment according to patient size were utilized for this examination. Comparison: Comparison is made to CT head 06/28/2021 FINDINGS: CTA Neck: The left common carotid artery shares common origin with the innominate artery. Atherosclerotic plaque is present in the aortic arch and at the origin of the great vessels. Atherosclerotic plaque is present at the origin of the right vertebral artery. The common carotid, external carotid, cervical segments of the internal carotid arteries, and the cervical segments of the vertebral arteries are patent. There is mild calcified atherosclerotic plaque at the bifurcation of the bilateral common carotid arteries without hemodynam ically significant flow stenosis. There is no dissection present. The right vertebral artery is dominant. CTA Head: The anterior and posterior cerebral circulations are patent. No hemodynamically significant stenosis, aneurysm, dissection, or arteriovenous malformation is shown. Atherosclerotic disease is noted. IMPRESSION: 1. No occlusion, hemodynamically significant stenosis, aneurysm, dissection, or arteriovenous malformation in the major intracranial arteries. 2. No occlusion, hemodynamically significant stenosis, or dissection in the major cervical arteries. Assessment of stenosis of the internal carotid arteries is based on NASCET criteria. ACT 112: Negative or not required by law. Electronically signed by: Dequan Ramsay M.D. 06/28/2021 4:55 PM ECG Data Attestation: I personally reviewed and interpreted this ECG as follows: Indication: + altered mental status Rate (beats per minute): 71 Rhythm: + normal sinus ECG Intervals/blocks: + Normal QRS and + Normal QT ECG [place]: + Normal ECG ST segments: + Normal ST segments MDM Narrative This is a 76-year-old male brought in as a stroke alert by EMS. Patient with obvious right-sided facial droop and dysarthria, initial NIH stroke score of 5. After obtaining additional information from the daughter to confirm time of onset and anticoagulation status, [facility] was consulted. CT and CTA were in progress at that time as were other labs and imaging. Patient slowly began to improve here and by the time of formal evaluation by the [facility] neurologist patient's had symptoms resolved. They recommended against TPA given his resolution. Patient initially hypertensive and Cardene drip was started however this did improve and this was able to be stopped. After patient symptoms improved and he was able to speak more clearly he was able to provide additional history. Patient does have a history of falls. I do not suspect occult infectious etiology at this time. Case discussed with hospitalist for additional inpatient evaluation and management. An order was placed for continuous cardiac monitoring. The monitor shows a rate of _60_ with _normal sinus_ rhythm. Impression & Plan TIA (transient ischemic attack), Hypertension Discharge Plan Visit Data Chief Complaint: Stroke Alert ED Provider: Joselin Duque Discharge Problem: TIA (transient ischemic attack), Hypertension Patient Disposition: Admitted As Inpatient Discharge Instructions Interventions: ED Discharge Assessment Last Done: 06/28/21 20:21 Discharge Problem: Hypertension Qualifiers: Hypertension type: primary hypertension Qualified Code(s): I10 - Essential (primary) hypertension
[2021-06-28 16:09] LABS: Basophils # (auto) 0.02 K/uL (0-0.2); Basophils % (auto) 0.2 %; Eosinophils # (auto) 0.31 K/uL (0-0.5); Eosinophils % (auto) 3.1 %; Hematocrit (blood only) 42.3 % (42-52); Immature Granulocytes # (auto) 0.05 K/uL (0.00-0.02); Immature Granulocytes % (auto) 0.5 %; Lymphocytes # (auto) 0.72 K/uL (1.2-3.4); Lymphocytes % (auto) 7.1 %; Mean Corpuscular Hemoglobin 31.4 pg (25-34); Mean Corpuscular Hgb Conc 35.5 g/dL (32-36); Mean Corpuscular Volume 88.7 fL (80-100); Mean Platelet Volume 10.9 fL (7.4-10.4); Monocytes # (auto) 1.28 K/uL (0.11-0.59); Monocytes % (auto) 12.7 %; Neutrophils # (auto) 7.73 K/uL (1.4-6.5); Neutrophils % (auto) 76.4 %; Platelet Count 252 K/uL (130-400); RDW Coefficient of Variation 12.4 % (11.5-14.5); RDW Standard Deviation 40.2 fL (36.4-46.3); Red Blood Count 4.77 M/uL (4.7-6.1); White Blood Count 10.11 K/uL (4.8-10.8)
[2021-06-28] MEDS ORDERED: ONDANSETRON INJ 2 MG/ML 2 ML VIAL ONE (16:10)
[2021-06-28] MEDS ORDERED: OPTIRAY 320 125ml IV ONE (16:16)
--- NOTE | 2021-06-28 16:20 | CT Scan Report ---
CT head/brain wo con Clinical Indication: [place] ^Stroke Like Symptoms . Technique: Contiguous axial CT images of the head were acquired from the base of the skull to the richie wendy without intravenous contrast administration. Images were viewed in brain, subdural and [facility]. Automated dose lowering techniques and/or adjustment according to patient size were utilized for this exam. Comparison: None available at the time of this dictation. Findings: Areas of decreased attenuation are present in the periventricular and subcortical white matter bilate rally consistent with small vessel ischemic disease. Generalized cerebral atrophy with commensurate e nlargement of the ventricles, sulci, and cisterns is also present. There is no acute intracranial hem orrhage or evidence of acute territorial infarction. No shift of the midline structures, mass effect, or extra-axial abnormalities are shown. Atherosclerotic calcifications are present in the intracran ial segments of the internal carotid arteries. 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 Mucous filling of the ethmoid sinuses noted. The orbits appear normal. There are no acute fractures of the calvaria or scalp swelling. Impression: No acute intracranial hemorrhage, evidence of acute territorial infarction, or other acute intracrani al disease process. ACT 112: Negative or not required by law. Electronically signed by: Dequan Ramsay M.D. 06/28/2021 4:19 PM
[2021-06-28 16:27] LABS: Alanine Aminotransferase 12 U/L (12-78); Albumin Level 3.9 gm/dl (3.4-5.0); Aspartate Aminotransferase 17 U/L (15-37); BUN Creatinine Ratio 8.3 (10-20); Blood Urea Nitrogen 10 mg/dl (7-18); Calcium 9.1 mg/dl (8.5-10.1); Carbon Dioxide 27 mmol/L (21-32); Chloride 96 mmol/L (98-107); Est GFR (African American) 62.9 ml/min; Est GFR (Non-African American) 54.3 ml/min; Glucose 217 mg/dl (70-99); Potassium 3.9 mmol/L (3.5-5.1); Sodium 132 mmol/L (136-145)
[2021-06-28 16:34] LABS: Albumin Globulin Ratio 1.1 (0.9-2); Alkaline Phosphatase 103 U/L (45-117); Globulin 3.5 gm/dl (2.5-4.0); Total Protein 7.4 gm/dl (6.4-8.2); Troponin I < 0.015 ng/ml (0-0.045)
--- NOTE | 2021-06-28 16:41 | XRay Report ---
XR chest 1V portable CLINICAL HISTORY: Stroke Like Symptoms COMPARISON STUDY: Chest radiograph January 20, 2021. Chest CT 06/13/2021. FINDINGS: Left humeral proximal internal fixation is partially imaged. Lung volumes are mildly dimini shed. There is no pneumothorax or pleural effusion. There is cardiomegaly. There is pulmonary vascula r congestion. No consolidation is identified. IMPRESSION: 1. Cardiomegaly with pulmonary vascular congestion. 2. Low lung volumes. ACT 112: Negative or not required by law. Electronically signed by: Len Simons M.D. 06/28/2021 4:39 PM
--- NOTE | 2021-06-28 16:54 | CT Scan Report ---
CT angio head w con Clinical Indication: [place] ^Stroke Like Symptoms . TECHNIQUE: Contiguous axial CT images of the head were acquired from the base of the skull to the richie wendy without intravenous contrast administration. CT angiography of the head and neck was performed f ollowing intravenous administration of 75 mL of Omnipaque 350 injected at a rate of 5 cc/sec. Multipl e MIP images in axial, coronal, and sagittal planes and 3D surfaced rendered images were then acquire d using the source data. Automated dose lowering techniques and/or adjustment according to patient si ze were utilized for this examination. Comparison: Comparison is made to CT head 06/28/2021 FINDINGS: CTA Neck: The left common carotid artery shares common origin with the innominate artery. Atheroscle rotic plaque is present in the aortic arch and at the origin of the great vessels. Atherosclerotic pl aque is present at the origin of the right vertebral artery. The common carotid, external carotid, ce rvical segments of the internal carotid arteries, and the cervical segments of the vertebral arteries are patent. There is mild calcified atherosclerotic plaque at the bifurcation of the bilateral comm on carotid arteries without hemodynamically significant flow stenosis. There is no dissection present . The right vertebral artery is dominant. CTA Head: The anterior and posterior cerebral circulations are patent. No hemodynamically significan t stenosis, aneurysm, dissection, or arteriovenous malformation is shown. Atherosclerotic disease is noted. IMPRESSION: 1. No occlusion, hemodynamically significant stenosis, aneurysm, dissection, or arteriovenous malfor mation in the major intracranial arteries. 2. No occlusion, hemodynamically significant stenosis, or dissection in the major cervical arteries. Assessment of stenosis of the internal carotid arteries is based on NASCET criteria. ACT 112: Negative or not required by law. Electronically signed by: Dequan Ramsay M.D. 06/28/2021 4:53 PM
[2021-06-28] MEDS ORDERED: niCARdipine 25 MG in SODIUM CHLORIDE 0.9% 240 ML IV SCH (17:00)
--- NOTE | 2021-06-28 17:57 | History & Physical Report ---
Date of Service June 28, 2021 Assessment & Plan (1) Stroke-like symptoms: Plan: Pt is 76 y/o M with PMH paroxysmal atrial flutter s/p pulmonary vein isolation procedure with cryoablation in 2018, watchman procedure 2018, CAD s/p stent, DM II, HTN, dyslipidemia, CKD III, PVD, h/o ITP, h/o non-Hodgkin lymphoma s/p chemo, GERD, recurrent falls presented to ER for strokelike symptoms. Had fall today and used LifeAlert. Neighbor checked on pt and was found to be in normal state then had onset of right facial droop and slurred speech. In ER patient was noted to have right facial droop and slurred speech. He was taken to CT scan and upon return from CT scan symptoms have improved. Telemetry stroke recommended no TPA. CT head: No acute intracranial findings CTA head and neck without occlusion, significant stenosis, aneurysm, dissection -Tele to monitor for arrhythmias -lipid panel, A1c in am -MRI brain -echo with bubble study -aspiration precautions -PT/OT consult -will increase atorvastatin from 20mg to 40mg daily -Continue aspirin and Plavix -allow permissive HTN, labetalol SBP>190 -neurology consult (2) Recurrent falls: Plan: H/O recurrent falls, positive Romberg Follows with [facility] - thought possible parkinsonism -patient on carbidopa levodopa. Evaluated by [facility] movement specialist and thought falls were multifactorial Fall precautions PT/OT eval (3) Atrial fibrillation: Plan: S/P pulmonary vein isolation procedure with cryoablation in 2018. S/P watchman procedure in 2019 Continue Tikosyn, metoprolol (4) Diabetes mellitus type 2 in nonobese: Plan: A1c: 6.3 on 04/18/2021 Hold home glycemic agents Basal bolus insulin per protocol (5) Hypertension: Plan: Initially patient hypertensive in ER BP up to 209/102 patient was started on nicardipine drip which was then discontinued. BP 168/78 Continue valsartan, metoprolol (6) Hyperlipidemia: Plan: Increase atorvastatin from 20 mg to 40 mg daily (7) CKD (chronic kidney disease), stage III: Plan: Cr: 1.26. Baseline 1.1 Monitor renal functions, avoid nephrotoxic agents when possible (8) CAD (coronary artery disease): Plan: S/p stent. Patient with history of stent restenosis and is on dual antiplatelet Continue aspirin, Plavix, metoprolol, atorvastatin (9) History of ITP: Plan: Continue dapsone (10) Depression: Plan: Continue duloxetine, Buspar DVT Prophylaxis -Heparin SQ Full Code as per discussion with pt Follows with Dr Brooks for routine care Pt was seen and care coordinated with Dr Laughlin. See addendum History of Present Illness Chief Complaint: Stroke like symptoms Primary Care Provider: Rosa Brooks MD Pt is 76 y/o M with PMH paroxysmal atrial flutter s/p pulmonary vein isolation procedure with cryoablation in 2018, watchman procedure 2018, CAD s/p stent, DM II, HTN, dyslipidemia, CKD III, PVD, h/o ITP, h/o non-Hodgkin lymphoma s/p chemo, GERD, recurrent falls presented to ER for strokelike symptoms. Patient reports today he was walking in his house using his walker trying to get to the bathroom when he had onset of feeling like he was going to fall. Patient states his legs started to feel weak and then he fell. He denies hitting his head. He used his life alert button which alerted his daughter at 14:05. A neighbor came to check on patient and was able to get patient up and patient seemed to be fine however then started with right facial droop and slurred speech. Patient had two 81 mg ASA. EMS was called and patient transported to ER. Patient with history recurrent falls, positive Romberg and follows with [facility] and [facility]. Patient states prior to falls he "feels like he is getting fall" and his legs get weak and sometimes has dizziness. [facility] report patient might have possible Parkinson's and patient is on carbidopa levodopa. Today patient does not feel he had dizziness prior to fall. He does report has had frontal headache for most of the day. In ER pt reports had nausea and vomited once. Denies fever/chills, diaphoresis, diarrhea, constipation, syncope, vision changes, neck pain, CP, SOB, orthopnea, palpitations, cough, sore throat, choking, otalgia, rhinorrhea, abdominal pain, paresthesias, weakness, extremity weakness, extremity edema, rashes, urinary symptoms. In ER patient was noted to have right facial droop and slurred speech. He was taken to CT scan and upon return from CT scan symptoms have improved. Telemetry stroke recommended no TPA. Patient currently without symptoms. CT head: No acute intracranial findings, CTA head and neck without occlusion, significant stenosis, aneurysm, dissection Allergies Allergy/AdvReac Type Severity Reaction Status Date / Time hydroxyzine Allergy Severe Anaphylaxis Verified 06/28/21 17:28 Gold Salts Allergy Intermediate hives Verified 06/28/21 17:28 losartan Allergy Intermediate hypotension Verified 06/28/21 17:28 triamcinolone Allergy Intermediate "pustules/r Verified 06/28/21 17:28 edness" Penicillins Allergy Mild RASH Verified 06/28/21 17:28 wheat Allergy Mild Rash Verified 06/28/21 17:28 Home Medications Medication Instructions Recorded Confirmed Type clopidogrel 75 mg tablet 75 mg PO QAM 08/27/18 06/28/21 History cyanocobalamin (vitamin B-12) 1,000 mcg PO QAM 08/27/18 06/28/21 History 1,000 mcg tablet dapsone 25 mg tablet 25 mg PO QPM 08/27/18 06/28/21 History fluticasone propionate 50 2 spray INTRANASAL HS 08/27/18 06/28/21 History mcg/actuation nasal spray,suspension metformin 500 mg tablet,extended 500 mg PO BID 08/27/18 06/28/21 History release 24 hr omeprazole 20 mg capsule,delayed 20 mg PO BID 08/27/18 06/28/21 History release aspirin 81 mg tablet,delayed 81 mg PO HS 09/25/18 06/28/21 History release nitroglycerin 0.4 mg sublingual 1 dose SUBLINGUAL DIRECTED PRN 09/25/18 06/28/21 History tablet (Nitrostat) tamsulosin 0.4 mg capsule (Flomax) 0.4 mg PO HS 12/11/18 06/28/21 History furosemide 20 mg tablet (Lasix) 20 mg PO Q OTHER DAY 02/02/19 06/28/21 History potassium chloride 10 mEq 10 meq PO Q OTHER DAY 02/02/19 06/28/21 History capsule,extended release metoprolol succinate 50 mg 50 mg PO BID tab 09/10/19 06/28/21 History tablet,extended release 24 hr (Toprol XL) glipizide 10 mg tablet 10 mg PO DAILY tab 02/26/20 06/28/21 History acetaminophen 500 mg tablet 1,000 mg PO Q8 PRN 11/22/20 06/28/21 History (Acetaminophen Extra Strength) atorvastatin 20 mg tablet 20 mg PO DAILY 11/22/20 06/28/21 History buspirone 5 mg tablet 5 mg PO BID PRN 11/22/20 06/28/21 History carbidopa 25 mg-levodopa 100 mg 1.5 tab PO TID 11/22/20 06/28/21 History tablet dofetilide 250 mcg capsule 250 mcg PO Q12 11/22/20 06/28/21 History duloxetine 30 mg capsule,delayed 30 mg PO DAILY 11/22/20 06/28/21 History release multivitamin 1 tab PO DAILY 11/22/20 06/28/21 History valsartan 80 mg tablet 40 mg PO DAILY 11/22/20 06/28/21 History linagliptin 5 mg tablet (Tradjenta) 5 mg PO DAILY 06/13/21 06/28/21 History betamethasone, augmented 0.05 % 1 applic TOPICAL BID 06/28/21 06/28/21 History topical ointment Past Med/Surg History Medical History (Updated 06/28/21 @ 19:39 by Berna Johnson PA-C) Atrial fibrillation Autoimmune hemolytic anemia CAD (coronary artery disease) CKD (chronic kidney disease), stage III Depression 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 " On 07/25/11 18:09 Dianelys Mack wrote "with neuropathy " On 07/25/11 18:09 Dianelys Mack wrote "with neuropathy " Diverticular disease of colon GERD (gastroesophageal reflux disease) Hearing deficit History of adenomatous polyp of colon History of ITP History of non-Hodgkin's lymphoma Hyperlipidemia Hypertension Myocardial infarction 2013, 2016 Osteoarthritis Thrombocytopenia Unstable angina (12/11/13) Surgical History History of arthroscopy of left shoulder History of bilateral cataract extraction History of cardiac cath 2013, 2016, 09/12/2018 History of cardiac radiofrequency ablation 04/2018 @ [facility] History of colonoscopy History of esophagogastroduodenoscopy (EGD) History of heart artery stent 2013 x1, 2017x1, 09/12/2018 x2(drug eluting stent @ [facility]) History of tonsillectomy and adenoidectomy History of tooth extraction wisdom teeth History of umbilical hernia repair Hx of exploratory laparotomy Presence of Watchman left atrial appendage closure device placed 11/27/18 @ [facility] Status post cholecystectomy "1994" Status post pericardiocentesis Status post vasectomy Family History Sister Family history of diabetes mellitus Family history of reaction to anesthesia difficulty waking Mother Family history of diabetes mellitus Social History (Updated 06/28/21 @ 19:34 by Berna Johnson PA-C) Smoking Status: Former smoker Tobacco Type: Cigarettes packs per day: 1; Years Smoked: 30; Second Hand Exposure: Yes (parents smoked); Hx Alcohol Use: No Hx Substance Use: No Preferred Language: Swedish Communication Ability: Effective Event Host Required: No Beliefs That Will Affect Care: None marital status: / Current Living Situation: Alone current occupation: Retired Feels Safe at Home: Yes Assistive Devices: Glasses, Hearing Aid - Bilateral and Walker Review of Systems Review of Systems: All systems reviewed & are unremarkable except as noted in HPI & below Physical Exam Physical Exam: General: no distress, WDWN Head: normocephalic, atraumatic Eyes: PERRL, EOM's intact, conjunctiva non-injected, anicteric ENT: normal inspection external ears, nose, mucous membranes moist Neck: supple, trachea midline Lungs: clear, no respiratory distress, no wheezing/rhonchi/rales CV: RRR, no murmur, no pretibial edema Abd: normal BS, soft, non-tender Ext: no cyanosis, no calf tenderness Neuro: A&O x 3, normal affect, facial sensation is intact and symmetric, face is strong and symmetric, hearing grossly intact, soft palate elevates symmetrically, no dysarthria, shoulder shrug intact, tongue is midline, normal m Skin: warm, dry, RLE: Anterior lower leg with abrasion with slight surrounding erythema, no discharge Results & Data Results & Data ([facility]) Vital Signs (Past 12 Hours) Vital Signs Temp Pulse Pulse Resp BP BP Pulse Ox 06/28/21 17:51 64 16 166/60 H 97 06/28/21 17:40 69 19 158/69 H 91 06/28/21 17:30 63 18 144/71 H 94 06/28/21 17:21 64 18 95 06/28/21 17:10 66 15 168/78 H 93 06/28/21 17:00 71 23 207/95 H 92 06/28/21 16:50 64 18 188/92 H 99 06/28/21 16:42 69 19 211/98 H 95 06/28/21 16:30 63 18 189/93 H 97 06/28/21 16:20 70 18 209/102 H 96 06/28/21 16:16 70 20 196/94 H 98 06/28/21 16:15 72 22 196/94 H 98 06/28/21 15:53 36.8 C 70 18 99 Laboratory Results Short CBC 06/28/21 Range/Units 15:43 WBC 10.11 (4.8-10.8) K/uL Hgb 15.0 (14.0-18.0) g/dL Hct 42.3 (42-52) % Plt Count 252 (130-400) K/uL BMP 06/28/21 15:43 Sodium 132 L Potassium 3.9 Chloride 96 L Carbon Dioxide 27 BUN 10 Creatinine 1.26 Glucose 217 H Calcium 9.1 Cardiac Enzymes 06/28/21 Range/Units 15:43 Troponin I < 0.015 (0-0.045) ng/ml Liver Function 06/28/21 Range/Units 15:43 Total Bilirubin 1.0 (0.2-1) mg/dl AST 17 (15-37) U/L ALT 12 (12-78) U/L Alkaline Phosphatase 103 (45-117) U/L Albumin 3.9 (3.4-5.0) gm/dl Diagnostic Findings Chest X-Ray 06/28/21 15:55 XR chest 1V portable CLINICAL HISTORY: Stroke Like Symptoms COMPARISON STUDY: Chest radiograph January 20, 2021. Chest CT 06/13/2021. FINDINGS: Left humeral proximal internal fixation is partially imaged. Lung volumes are mildly diminished. There is no pneumothorax or pleural effusion. There is cardiomegaly. There is pulmonary vascular congestion. No consolidation is identified. IMPRESSION: 1. Cardiomegaly with pulmonary vascular congestion. 2. Low lung volumes. ACT 112: Negative or not required by law. Electronically signed by: Len Simons M.D. 06/28/2021 4:[address] 06/28/21 15:55 CT head/brain wo con Clinical Indication: MN ^Stroke Like Symptoms . Technique: Contiguous axial CT images of the head were acquired from the base of the skull to the vertex without intravenous contrast administration. Images were viewed in brain, subdural and bone windows. Automated dose lowering techniques and/or adjustment according to patient size were utilized for this exam. Comparison: None available at the time of this dictation. Findings: Areas of decreased attenuation are present in the periventricular and subcortical white matter bilaterally consistent with small vessel ischemic disease. Generalized cerebral atrophy with commensurate enlargement of the ventricles, sulci, and cisterns is also present. There is no acute intracranial hemorrhage or evidence of acute territorial infarction. No shift of the midline structures, mass effect, or extra-axial abnormalities are shown. Atherosclerotic calcifications are present in the intracranial segments of the internal carotid arteries. 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 Mucous filling of the ethmoid sinuses noted. The orbits appear normal. There are no acute fractures of the calvaria or scalp swelling. Impression: No acute intracranial hemorrhage, evidence of acute territorial infarction, or other acute intracranial disease process. ACT 112: Negative or not required by law. Electronically signed by: Dequan Ramsay M.D. 06/28/2021 4:19 PM Head CTA 06/28/21 15:55 CT angio head w con Clinical Indication: MN ^Stroke Like Symptoms . TECHNIQUE: Contiguous axial CT images of the head were acquired from the base of the skull to the vertex without intravenous contrast administration. CT angiography of the head and neck was performed following intravenous administration of 75 mL of Omnipaque 350 injected at a rate of 5 cc/sec. Multiple MIP images in axial, coronal, and sagittal planes and 3D surfaced rendered images were then acquired using the source data. Automated dose lowering techniques and/or adjustment according to patient size were utilized for this examination. Comparison: Comparison is made to CT head 06/28/2021 FINDINGS: CTA Neck: The left common carotid artery shares common origin with the innominate artery. Atherosclerotic plaque is present in the aortic arch and at the origin of the great vessels. Atherosclerotic plaque is present at the origin of the right vertebral artery. The common carotid, external carotid, cervical segments of the internal carotid arteries, and the cervical segments of the vertebral arteries are patent. There is mild calcified atherosclerotic plaque at the bifurcation of the bilateral common carotid arteries without hemodynamically significant flow stenosis. There is no dissection present. The right vertebral artery is dominant. CTA Head: The anterior and posterior cerebral circulations are patent. No hemodynamically significant stenosis, aneurysm, dissection, or arteriovenous malformation is shown. Atherosclerotic disease is noted. IMPRESSION: 1. No occlusion, hemodynamically significant stenosis, aneurysm, dissection, or arteriovenous malformation in the major intracranial arteries. 2. No occlusion, hemodynamically significant stenosis, or dissection in the major cervical arteries. Assessment of stenosis of the internal carotid arteries is based on NASCET criteria. ACT 112: Negative or not required by law. Electronically signed by: Dequan Ramsay M.D. 06/28/2021 4:53 PM Neck CTA 06/28/21 15:55 CT angio head w con Clinical Indication: MN ^Stroke Like Symptoms . TECHNIQUE: Contiguous axial CT images of the head were acquired from the base of the skull to the vertex without intravenous contrast administration. CT angiography of the head and neck was performed following intravenous administration of 75 mL of Omnipaque 350 injected at a rate of 5 cc/sec. Multiple MIP images in axial, coronal, and sagittal planes and 3D surfaced rendered images were then acquired using the source data. Automated dose lowering techniques and/or adjustment according to patient size were utilized for this examination. Comparison: Comparison is made to CT head 06/28/2021 FINDINGS: CTA Neck: The left common carotid artery shares common origin with the innominate artery. Atherosclerotic plaque is present in the aortic arch and at the origin of the great vessels. Atherosclerotic plaque is present at the origin of the right vertebral artery. The common carotid, external carotid, cervical segments of the internal carotid arteries, and the cervical segments of the vertebral arteries are patent. There is mild calcified atherosclerotic plaque at the bifurcation of the bilateral common carotid arteries without hemodynamically significant flow stenosis. There is no dissection present. The right vertebral artery is dominant. CTA Head: The anterior and posterior cerebral circulations are patent. No hemodynamically significant stenosis, aneurysm, dissection, or arteriovenous malformation is shown. Atherosclerotic disease is noted. IMPRESSION: 1. No occlusion, hemodynamically significant stenosis, aneurysm, dissection, or arteriovenous malformation in the major intracranial arteries. 2. No occlusion, hemodynamically significant stenosis, or dissection in the major cervical arteries. Assessment of stenosis of the internal carotid arteries is based on NASCET criteria. ACT 112: Negative or not required by law. Electronically signed by: Dequan Ramsay M.D. 06/28/2021 4:55 PM Code Status & VTE Plan VTE Prophylaxis Plan VTE Prophylaxis will be ordered: Yes Supervising Physician Co-Signing Physician Notes 76 y/o M with PMH paroxysmal atrial flutter s/p pulmonary vein isolation procedure with cryoablation in 2018, watchman procedure 2018, CAD s/p stent, DM II, HTN, dyslipidemia, CKD III, PVD, h/o ITP, h/o non-Hodgkin lymphoma s/p chemo, GERD, recurrent falls presented to ER for strokelike symptoms. Had fall today and used LifeAlert. Neighbor checked on pt and was found to be in normal state then had onset of right facial droop and slurred speech. He is right facial droop and slurred speech has resolved during the stay, hence not a candidate for TPA. Upon examination: GENERAL: Alert and oriented x3. NAD, on RA. HEENT: No pallor, no icterus. Pupils equal, round and reactive to light. Oral mucosa moist. NECK: No JVD, no neck masses. HEART: S1 and S2 heard. Regular rate and rhythm. No murmur, no gallop. RESPIRATORY SYSTEM: Normal AP diameter. No accessory muscle use. No wheezing, no crackles. ABDOMEN: Soft, bowel sounds present, nontender, no distention. CENTRAL NERVOUS SYSTEM: Alert and oriented x3. No facial droop. Speech is clear. Obeys simple commands. Moves extremities. EXTREMITIES: No edema, no erythema seen. I have seen and examined the patient and have discussed the case with the provider above. I agree with the assessment and plan as stated.
[2021-06-28] MEDS ORDERED: ASPIRIN 81 MG CHEW PO STA (18:28)
[2021-06-28] MEDS ORDERED: LABETALOL HCL IV 5 MG/ML 20ML IV PRN (18:53)
[2021-06-28] MEDS ORDERED: DEXTROSE 50% 50 ML SYRINGE IV PRN (20:56)
[2021-06-28] MEDS ORDERED: GLUCOSE 40% GEL 15 GM TUBE PO PRN (20:56)
[2021-06-28] MEDS ORDERED: PHARMACIST DISCHARGE MED REC CONSULT PRN (20:56)
[2021-06-28] MEDS ORDERED: CARBOHYDRATES FOR HYPOGLYCEMIA PO PRN (20:56)
[2021-06-28] MEDS ORDERED: GLUCAGON FOR INJ 1 MG VIAL SQ PRN (20:56)
[2021-06-28] MEDS ORDERED: busPIRone 5 MG TAB PO PRN (20:56)
[2021-06-28] MEDS ORDERED: GLUCOSE 10 TABS/TUBE PO PRN (20:56)
[2021-06-28] MEDS ORDERED: NITROGLYCERIN SL 0.4 MG/TAB TAB SL PRN (20:56)
[2021-06-28] MEDS ORDERED: POLYETHYLENE (MIRALAX) 17 GM PACK PO PRN (20:56)
[2021-06-28] MEDS: BETAMETHASONE DIP AUG (DIPROLENE) 0.05% CR 15 GM TUBE EXT SCH (21:58)
[2021-06-28] MEDS: FLUTICASONE PROPIONATE NA SPR 16 GM BTL NAE SCH (21:58)
[2021-06-28] MEDS: METOPROLOL SUCC 50MG EXT REL TAB PO SCH (21:59)
[2021-06-28] MEDS: CARBIDOPA/LEVODOPA 25/100MG TAB PO SCH (21:59)
[2021-06-28] MEDS: TAMSULOSIN HCL 0.4 MG CAP PO SCH (21:59)
[2021-06-28] MEDS: DAPSONE 25 MG TAB PO SCH (22:00)
[2021-06-28] MEDS: PANTOprazole 40 MG TAB PO SCH (22:00)
[2021-06-28] MEDS: DOFETILIDE 125 MCG CAPSULE PO SCH (22:00)
[2021-06-28] MEDS: INSULIN GLARGINE SOLOSTAR 100 UNITS/ML 3 ML PEN SC SCH (22:01)
[2021-06-28] MEDS: INSULIN ASPART 100 UNITS/ML 3 ML PEN SC SCH (22:01)
[2021-06-29] MEDS: ACETAMINOPHEN 325 MG TAB PO PRN ×2 (05:36→10:31)
[2021-06-29] MEDS ORDERED: PROMETHAZINE HCL 12.5 MG in SODIUM CHLORIDE 0.9% 50 ML IV PRN (06:59)
[2021-06-29] MEDS: CLOPIDOGREL BISULFATE 75 MG TAB PO SCH (07:15)
[2021-06-29] MEDS: DOFETILIDE 125 MCG CAPSULE PO SCH ×2 (07:15→20:27)
[2021-06-29] MEDS: ATORVASTATIN 40 MG TAB PO SCH (07:15)
[2021-06-29] MEDS: BETAMETHASONE DIP AUG (DIPROLENE) 0.05% CR 15 GM TUBE EXT SCH ×2 (07:15→20:29)
[2021-06-29] MEDS: CYANOCOBALAMIN 500 MCG TABLET (VITAMIN B-12) PO SCH (07:15)
[2021-06-29] MEDS: DULoxetine HCL 30 MG CAP PO SCH (07:16)
[2021-06-29] MEDS: CARBIDOPA/LEVODOPA 25/100MG TAB PO SCH ×3 (07:16→20:27)
[2021-06-29] MEDS: VALSARTAN 80 MG TAB PO SCH (07:16)
[2021-06-29] MEDS: MULTIVITAMIN TAB PO SCH (07:16)
[2021-06-29] MEDS: PANTOprazole 40 MG TAB PO SCH ×2 (07:16→20:26)
[2021-06-29] MEDS: METOPROLOL SUCC 50MG EXT REL TAB PO SCH ×2 (07:17→20:26)
[2021-06-29 08:16] LABS: Basophils # (auto) 0.01 K/uL (0-0.2); Basophils % (auto) 0.1 %; Eosinophils # (auto) 0.21 K/uL (0-0.5); Eosinophils % (auto) 2.2 %; Hemoglobin 14.2 g/dL (14.0-18.0); Immature Granulocytes # (auto) 0.03 K/uL (0.00-0.02); Immature Granulocytes % (auto) 0.3 %; Lymphocytes # (auto) 0.58 K/uL (1.2-3.4); Lymphocytes % (auto) 6.1 %; Mean Corpuscular Hemoglobin 30.7 pg (25-34); Mean Corpuscular Hgb Conc 34.6 g/dL (32-36); Mean Corpuscular Volume 88.6 fL (80-100); Mean Platelet Volume 10.7 fL (7.4-10.4); Monocytes # (auto) 1.09 K/uL (0.11-0.59); Monocytes % (auto) 11.5 %; Neutrophils # (auto) 7.52 K/uL (1.4-6.5); Neutrophils % (auto) 79.8 %; Platelet Count 215 K/uL (130-400); RDW Coefficient of Variation 12.5 % (11.5-14.5); RDW Standard Deviation 39.8 fL (36.4-46.3); Red Blood Count 4.63 M/uL (4.7-6.1); White Blood Count 9.44 K/uL (4.8-10.8)
[2021-06-29] MEDS: INSULIN ASPART 100 UNITS/ML 3 ML PEN SC SCH ×4 (08:21→20:28)
[2021-06-29] MEDS: INSULIN GLARGINE SOLOSTAR 100 UNITS/ML 3 ML PEN SC SCH ×2 (08:22→20:28)
[2021-06-29 08:34] LABS: Estimated Average Glucose 143 mg/dl; Hemoglobin A1C 6.6 % (4.5-5.6)
[2021-06-29 08:47] LABS: BUN Creatinine Ratio 8.3 (10-20); Calcium 8.9 mg/dl (8.5-10.1); Creatinine Clr Calc Pharmacy 52.2 ml/min; Est GFR (Non-African American) 64.7 ml/min; Potassium 3.6 mmol/L (3.5-5.1)
--- NOTE | 2021-06-29 08:49 | Magnetic Resonance Report ---
MRI OF THE BRAIN WITHOUT CONTRAST CLINICAL HISTORY: Stroke symptoms. Weakness. Falls. COMPARISON STUDY: MRI of the brain July 01, 2020. Head CT and CTA of the head June 28, 2021 . TECHNIQUE: Utilizing a 1.5 Kate magnet and dedicated coil, multiplanar, multiecho imaging of the bra in was performed without IV contrast. FINDINGS: Note is made of a small 4 mm hyperintense focus within the left thalamus on axial diffusion -weighted sequence image 11 of 24. This is mildly hypointense on the ADC map although correlation is difficult given its small size. No additional foci of restricted diffusion are present. Ventricular s ystem is stable. Basal cisterns are patent. There are no extra axial collections. Flow-voids for the major intracranial vessels are present. White matter T2 hyperintense foci suggest small vessel diseas e. Multiple old lacunar infarcts are also noted. Calvarial signal is normal. No intracranial masses i dentified on this unenhanced exam. There is moderate atrophy. IMPRESSION: 1. 4 mm hyperintense focus within the left thalamus on diffusion-weighted sequence. This favors a sma ll acute to subacute infarct. 2. Otherwise, unchanged appearance of the brain since MRI of July 01, 2020. ACT 112: Negative or not required by law. Electronically signed by: Len Simons M.D. 06/29/2021 8:48 AM
--- NOTE | 2021-06-29 11:01 | Neurology Consultation ---
Date of Consultation June 29, 2021 Assessment & Plan (1) Thalamic stroke: 1. MRI brain- acute thalmic stroke 2. CTA head/neck- no occlusion or significant narrowing 3. liberalize blood pressure for now 4. then optimize HTN, HLD, DM LDL <70 5. PT/OT for discharge needs 6. already on plavix 75 mg and aspirin 81 mg daily continue (2) Recurrent falls: 1. PT/OT for discharge needs 2. parkinson's medications were started and may be causing some hypotension episodes, He is currently on 1.5 tab TID which was recently increased from 1 tab TID. He does not feel this is helping with his gait. may need to slowly taper off to see if this improves his dizzy spells. when off Sinemet a OSCAR scan could be used to r/o parkinson's. this can be done as an outpatient. (3) Hypertension: 1. liberalize for 24-48 hours then optimize slowly Supervising Physician Co-Signing Physician Notes The patient was seen and examined this afternoon and discussed with Delilah Moffett PA-C. Patient has a longstanding history of dizziness and multiple falls. He states on average he falls four times per week. He was recently seen by a movement disorder specialist at [facility] although I do not have the notes from this visit. He states she was at home yesterday when he fell and noted not feeling well. He stated he had some word finding difficulty. He denied any numbness or weakness in either arm. He currently is back to baseline. He denies any prior history of stroke. He does have a history of coronary artery disease and is on dual antiplatelet therapy. He has a cane and walker which he uses at home. He does not have a wheelchair. On exam today his speech is clear. He does well with word finding. Face is symmetric. Strength is symmetric. Tongue is midline. I did attempt to evaluate the patient for ambulation although he had significant difficulty getting up from a seated position therefore we elected not to perform a formal gait evaluation. I also reviewed his recent MRI of the brain and agree there is a subtle diffusion restriction noted in the left thalamus without any clear ADC correlate. I do not believe this finding would correlate with the symptoms he had noted yesterday. Thalamic strokes are often associated with moderate to severe sensory changes. Although thalamic strokes can be associated with some aphasia this is uncommon. If this was an acute infarct associated with yesterday symptoms I would expect to see a clear ADC correlate. Thalamic strokes are often small vessel in etiology as well. For now I agree with continuing aspirin and Plavix for secondary stroke prevention in conjunction with cardiology's recommendations. He does have a watchman device. Given the frequency of this patient's falls I also agree that anticoagulation is not a good option. I did discuss this with the patient at length and he is agreeable. I did discuss physical therapy or acute rehabilitation with patient he is agreeable. Will defer to PT OT for any recommendations. Otherwise please contact me with any additional questions or concerns. In summary I do believe the finding noted on the MRI is likely an incidental finding and may be is suggestive of a prior subacute infarct not associated with his recent episode. My recommendation would be to continue current medications as well as monitor blood pressures at home. Systolic blood pressure goal is less than 140 diastolic blood pressure goals less than 90. Hemoglobin A1c was recently checked and was 6.6. At this point given his recent establishment with a movement disorder specialist I believe he can continue to follow with them for now. History of Present Illness Reason for Consultation: stroke symptoms Requesting Physician: Shyam Lopez MD Attending Physician: Shyam Lopez MD History of Present Illness Gaurav is 76 year old male with PMH -pAflutter, pulmonary vein isolation procedure with cryoablation in 2018, watchman procedure 2018, CAD s/p stent, DM II, HTN, HLD, CKD III, PVD, h/o ITP, h/o non-Hodgkin lymphoma s/p chemo, GERD, recurrent falls presented to [facility] 06/28/2021 for strokelike symptoms. He was wal matty in his house using his walker trying to get to the bathroom when he had onset of feeling like he was going to fall. His legs started to feel weak and then he fell. He used his life alert button which alerted his daughter at 14:05. A neighbor was able to get him up and then had right facial droop and slurred speech. He took two 81 mg ASA. EMS was called and patient transported to ER.He has a history of falls, positive Romberg and follows with [facility] and [facility]. Before his falls he "feels like he is getting fall" and his legs get weak and sometimes has dizziness. [facility] report patient might have possible Parkinson's and patient is on carbidopa levodopa. He did report a frontal headache for most of the day and some nausea and vomited once. He is doing better but still does not feel himself. He had some additional vomiting but was able to eat his lunch and no vomiting afterward. He has been up and walking with physical therapy and did well. denies CP, SOB one sided weakness, numbness tingling, new bowel or bladder issues, headache. Allergies Allergy/AdvReac Type Severity Reaction Status Date / Time hydroxyzine Allergy Severe Anaphylaxis Verified 06/28/21 17:28 Gold Salts Allergy Intermediate hives Verified 06/28/21 17:28 losartan Allergy Intermediate hypotension Verified 06/28/21 17:28 triamcinolone Allergy Intermediate "pustules/r Verified 06/28/21 17:28 edness" Penicillins Allergy Mild RASH Verified 06/28/21 17:28 wheat Allergy Mild Rash Verified 06/28/21 17:28 Home Medications Medication Instructions Recorded Confirmed Type clopidogrel 75 mg tablet 75 mg PO QAM 08/27/18 06/28/21 History cyanocobalamin (vitamin B-12) 1,000 mcg PO QAM 08/27/18 06/28/21 History 1,000 mcg tablet dapsone 25 mg tablet 25 mg PO QPM 08/27/18 06/28/21 History fluticasone propionate 50 2 spray INTRANASAL HS 08/27/18 06/28/21 History mcg/actuation nasal spray,suspension metformin 500 mg tablet,extended 500 mg PO BID 08/27/18 06/28/21 History release 24 hr omeprazole 20 mg capsule,delayed 20 mg PO BID 08/27/18 06/28/21 History release aspirin 81 mg tablet,delayed 81 mg PO HS 09/25/18 06/28/21 History release nitroglycerin 0.4 mg sublingual 1 dose SUBLINGUAL DIRECTED PRN 09/25/18 06/28/21 History tablet (Nitrostat) tamsulosin 0.4 mg capsule (Flomax) 0.4 mg PO HS 12/11/18 06/28/21 History furosemide 20 mg tablet (Lasix) 20 mg PO Q OTHER DAY 02/02/19 06/28/21 History potassium chloride 10 mEq 10 meq PO Q OTHER DAY 02/02/19 06/28/21 History capsule,extended release metoprolol succinate 50 mg 50 mg PO BID tab 09/10/19 06/28/21 History tablet,extended release 24 hr (Toprol XL) glipizide 10 mg tablet 10 mg PO DAILY tab 02/26/20 06/28/21 History acetaminophen 500 mg tablet 1,000 mg PO Q8 PRN 11/22/20 06/28/21 History (Acetaminophen Extra Strength) atorvastatin 20 mg tablet 20 mg PO DAILY 11/22/20 06/28/21 History buspirone 5 mg tablet 5 mg PO BID PRN 11/22/20 06/28/21 History carbidopa 25 mg-levodopa 100 mg 1.5 tab PO TID 11/22/20 06/28/21 History tablet dofetilide 250 mcg capsule 250 mcg PO Q12 11/22/20 06/28/21 History duloxetine 30 mg capsule,delayed 30 mg PO DAILY 11/22/20 06/28/21 History release multivitamin 1 tab PO DAILY 11/22/20 06/28/21 History valsartan 80 mg tablet 40 mg PO DAILY 11/22/20 06/28/21 History linagliptin 5 mg tablet (Tradjenta) 5 mg PO DAILY 06/13/21 06/28/21 History betamethasone, augmented 0.05 % 1 applic TOPICAL BID 06/28/21 06/28/21 History topical ointment Patient History Medical History Atrial fibrillation Autoimmune hemolytic anemia CAD (coronary artery disease) CKD (chronic kidney disease), stage III Depression 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 " On 07/25/11 18:09 Dianelys Mack wrote "with neuropathy " On 07/25/11 18:09 Dianelys Mack wrote "with neuropathy " Diverticular disease of colon GERD (gastroesophageal reflux disease) Hearing deficit History of adenomatous polyp of colon History of ITP History of non-Hodgkin's lymphoma Hyperlipidemia Hypertension Myocardial infarction 2013, 2016 Osteoarthritis Thrombocytopenia Unstable angina (12/11/13) Surgical History History of arthroscopy of left shoulder History of bilateral cataract extraction History of cardiac cath 2013, 2017, 09/12/2018 History of cardiac radiofrequency ablation 04/2018 @ [facility] [place] [facility] History of colonoscopy History of esophagogastroduodenoscopy (EGD) History of heart artery stent 2013 x1, 2017x1, 09/12/2018 x2(drug eluting stent @ [facility]) History of tonsillectomy and adenoidectomy History of tooth extraction wisdom teeth History of umbilical hernia repair Hx of exploratory laparotomy Presence of Watchman left atrial appendage closure device placed 11/27/18 @ [facility] [place] Status post cholecystectomy "1994" Status post pericardiocentesis Status post vasectomy Family History Sister Family history of diabetes mellitus Family history of reaction to anesthesia difficulty waking Mother Family history of diabetes mellitus Social History Smoking Status: Former smoker Tobacco Type: Cigarettes packs per day: 1; Years Smoked: 30; Cigarettes Per Day: 1 PPD; Smoking End Date: September 12, 1993; Second Hand Exposure: No; Do You Dip or Chew Tobacco: No; Hx Alcohol Use: No Hx Substance Use: No Preferred Language: Maltese Communication Ability: Effective Measurement Specialist Required: No Beliefs That Will Affect Care: None marital status: / Current Living Situation: Alone current occupation: Retired Other Information That Helps Us Care for You: No Feels Safe at Home: Yes Assistive Devices: Cane, Glasses and Walker Review of Systems Review of Systems: All systems reviewed & are unremarkable except as noted in HPI & below Physical Exam Physical Exam: Physical Exam: Constitutional: appearance nourished, healthy and normal, animated facies Ears, Nose, Mouth and Throat: mucous membranes moist, no injection and skin normal, eyes normal Cardiovascular: normal S-1 and S-2 and regular rate and rhythm Respiratory: clear to auscultation (CTA) and no rales, rhonchi or wheeze Musculoskeletal: no peripheral edema and good distal pulses Skin: no stigmata of neurocutaneous disease noted and normal and intact Eyes: extraocular muscles intact (EOMI) and pupils equal, round and reactive to light (PERRL) normal eye blink NEUROLOGIC EXAMINATION: Mental status: Alert and interactive Oriented to 2020, president Miguel A, June, identifies pen and write with it, button, thumb, says no ifs ands buts Oriented to person Speech fluent with no evidence of aphasia Cranial Nerves smile eye brow raise symmetric Reflexes: Deep tendon reflexes were symmetrical and graded 2/5. Sensory: light and cool touch Coordination: finger to nose no reaching tremor or resting tremor, no cogwheeling. Gait/Stance: Posture lying in bed Motor: slight drift on right Strength: hand sap bobj developer biceps triceps 5/5, hip flex plantar flex ext 5/5 Results & Data ([facility]) Vital Signs (Past 12 Hours) Vital Signs Temp Pulse Pulse Resp BP BP Pulse Ox 06/29/21 07:13 36.8 C 60 18 179/90 H 94 06/29/21 04:00 36.6 C 61 18 125/61 96 06/29/21 00:33 62 06/29/21 00:16 36.7 C 59 L 18 173/79 H 94 Laboratory Results Abnormal lab results 06/28/21 06/28/21 06/28/21 Range/Units 15:43 15:43 16:15 RBC (4.7-6.1) M/uL Hct (42-52) % MPV 10.9 H (7.4-10.4) fL Neut # (Auto) 7.73 H (1.4-6.5) K/uL Lymph # (Auto) 0.72 L (1.2-3.4) K/uL Haywood # (Auto) 1.28 H (0.11-0.59) K/uL Immature Gran # (Auto) 0.05 H (0.00-0.02) K/uL Sodium 132 L (136-145) mmol/L Chloride 96 L (98-107) mmol/L BUN/Creatinine Ratio 8.3 L (10-20) Glucose 217 H (70-99) mg/dl POC Glucose 226 H (70-99) mg/dl Hemoglobin A1c (4.5-5.6) % 06/28/21 06/29/21 06/29/21 Range/Units 21:57 07:44 07:48 RBC 4.63 L (4.7-6.1) M/uL Hct 41.0 L (42-52) % MPV 10.7 H (7.4-10.4) fL Neut # (Auto) 7.52 H (1.4-6.5) K/uL Lymph # (Auto) 0.58 L (1.2-3.4) K/uL Haywood # (Auto) 1.09 H (0.11-0.59) K/uL Immature Gran # (Auto) 0.03 H (0.00-0.02) K/uL Sodium (136-145) mmol/L Chloride (98-107) mmol/L BUN/Creatinine Ratio (10-20) Glucose (70-99) mg/dl POC Glucose 168 H 182 H (70-99) mg/dl Hemoglobin A1c (4.5-5.6) % 06/29/21 06/29/21 Range/Units 07:48 07:48 RBC (4.7-6.1) M/uL Hct (42-52) % MPV (7.4-10.4) fL Neut # (Auto) (1.4-6.5) K/uL Lymph # (Auto) (1.2-3.4) K/uL Haywood # (Auto) (0.11-0.59) K/uL Immature Gran # (Auto) (0.00-0.02) K/uL Sodium 133 L (136-145) mmol/L Chloride (98-107) mmol/L BUN/Creatinine Ratio 8.3 L (10-20) Glucose 199 H (70-99) mg/dl POC Glucose (70-99) mg/dl Hemoglobin A1c 6.6 H (4.5-5.6) % Diagnostic Findings MRI brain-4 mm hyperintense focus within the left thalamus on diffusion-weighted sequence. This favors a small acute to subacute infarct. Otherwise, unchanged appearance of the brain since MRI of July 01, 2020. CTA head/neck- No occlusion, hemodynamically significant stenosis, aneurysm, dissection, or arteriovenous malformation in the major intracranial arteries. No occlusion, hemodynamically significant stenosis, or dissection in the major cervical arteries. TTE- 55-60% no ASD (1) Hypertension Hypertension type: primary hypertension Qualified Code(s): I10 - Essential (primary) hypertension
--- NOTE | 2021-06-29 11:06 | Cardiology Consultation ---
Date of Consultation June 29, 2021 Assessment & Plan (1) Thalamic stroke: (2) Paroxysmal atrial fibrillation: (3) CAD (coronary artery disease): (4) Recurrent falls: Thalamic stroke. Patient has a history of complex LAD intervention with in-stent restenosis that occurred in a short interval of time. Chronic dual antiplatelet therapy has therefore been felt to be indicated, and in an effort to avoid therapy with an oral anticoagulant plus aspirin and clopidogrel, he underwent a Watchman device. He now presents with a thalamic stroke. No atrial fibrillation noted on telemetry or EKG thus far. Given his stroke risk factors, under other circumstances I would recommend elimination of aspirin and ongoing therapy with clopidogrel plus a direct oral anticoagulant such as Eliquis or Coumadin, but he has had recurrent chronic falls, and at present I feel that the risk of anticoagulation may be prohibitive. He does have a history of past ITP, but his platelet counts have been stable off of therapy more recently. Right now we will continue aspirin clopidogrel, pending further assessment and discussion with the neurology team with whom I will collaborate. He has had an exhaustive work-up for dizziness including a tilt table test, multiple cardiac monitors to exclude bradycardia, and had been placed on Parkinson's medications by neurology. He continues to decline from the standpoint. History of Present Illness Attending Physician: Shyam Lopez MD History of Present Illness Mr Recio is a 76-year-old male well-known to the undersigned as I have seen him for years as an inpatient and outpatient. He is assessed in cardiology consultation per the request of Dr. Lopez for the evaluation of stroke in the setting of paroxysmal atrial fibrillation, coronary heart disease, and past percutaneous left atrial appendage occlusion device placement. Since the most recent visit with me in April,, he has had ongoing issues with progression of his chronic dizziness and has had multiple falls within the last 3 weeks. Chronic dizziness has been a complaint prompting assessment for years. He has been seen by cardiology on multiple occasions for this, neurology locally, neurology at [facility] [place], and at [facility]. A recent fall was significant enough that he required suturing of his forehead. He presented via the emergency room yesterday with a recurrent fall as well as right facial droop and slurred speech. MRI of the brain revealed a 4 mm hyperintense focus within the left thalamus consistent with a small subacute infarction. Telemetry reveals sinus rhythm thus far this hospital stay. The time my assessment is speech difficulty has improved. I see a subtle right facial droop that is different from his typical baseline, he is nauseous and he just vomited. Past Cardiac History: 1.Chronic coronary heart disease patient with history of complex interventions with progression/in stent restenosis within 6 months of stopping clopidogrel after an LAD intervention plus new lesions in the same vessel and therefore he is on chronic dual anti-platelet therapy. Most recent cardiac catheterization, LAD intervention took place in September, 2.Symptomatic paroxysmal atrial fibrillation, pulmonary vein isolation procedure 05/06/2018 with cryoablation, [id number] 3.Percutaneous left atrial appendage occlusion device/Watchman 11/28/2018, complicated by post procedure pericarditis/pericardial effusion requiring emergent pericardiocentesis, anti-inflammatory treatment post procedure with colchicine 4.Hypertension Past medical history is otherwise notable for type 2 diabetes mellitus, non- Hodgkin's lymphoma, 2010, ITP requiring Rituxan therapy, -recurrent dizziness Allergies Allergy/AdvReac Type Severity Reaction Status Date / Time hydroxyzine Allergy Severe Anaphylaxis Verified 06/28/21 17:28 Gold Salts Allergy Intermediate hives Verified 06/28/21 17:28 losartan Allergy Intermediate hypotension Verified 06/28/21 17:28 triamcinolone Allergy Intermediate "pustules/r Verified 06/28/21 17:28 edness" Penicillins Allergy Mild RASH Verified 06/28/21 17:28 wheat Allergy Mild Rash Verified 06/28/21 17:28 Home Medications Medication Instructions Recorded Confirmed Type clopidogrel 75 mg tablet 75 mg PO QAM 08/27/18 06/28/21 History cyanocobalamin (vitamin B-12) 1,000 mcg PO QAM 08/27/18 06/28/21 History 1,000 mcg tablet dapsone 25 mg tablet 25 mg PO QPM 08/27/18 06/28/21 History fluticasone propionate 50 2 spray INTRANASAL HS 08/27/18 06/28/21 History mcg/actuation nasal spray,suspension metformin 500 mg tablet,extended 500 mg PO BID 08/27/18 06/28/21 History release 24 hr omeprazole 20 mg capsule,delayed 20 mg PO BID 08/27/18 06/28/21 History release aspirin 81 mg tablet,delayed 81 mg PO HS 09/25/18 06/28/21 History release nitroglycerin 0.4 mg sublingual 1 dose SUBLINGUAL DIRECTED PRN 09/25/18 06/28/21 History tablet (Nitrostat) tamsulosin 0.4 mg capsule (Flomax) 0.4 mg PO HS 12/11/18 06/28/21 History furosemide 20 mg tablet (Lasix) 20 mg PO Q OTHER DAY 02/02/19 06/28/21 History potassium chloride 10 mEq 10 meq PO Q OTHER DAY 02/02/19 06/28/21 History capsule,extended release metoprolol succinate 50 mg 50 mg PO BID tab 09/10/19 06/28/21 History tablet,extended release 24 hr (Toprol XL) glipizide 10 mg tablet 10 mg PO DAILY tab 02/26/20 06/28/21 History acetaminophen 500 mg tablet 1,000 mg PO Q8 PRN 11/22/20 06/28/21 History (Acetaminophen Extra Strength) atorvastatin 20 mg tablet 20 mg PO DAILY 11/22/20 06/28/21 History buspirone 5 mg tablet 5 mg PO BID PRN 11/22/20 06/28/21 History carbidopa 25 mg-levodopa 100 mg 1.5 tab PO TID 11/22/20 06/28/21 History tablet dofetilide 250 mcg capsule 250 mcg PO Q12 11/22/20 06/28/21 History duloxetine 30 mg capsule,delayed 30 mg PO DAILY 11/22/20 06/28/21 History release multivitamin 1 tab PO DAILY 11/22/20 06/28/21 History valsartan 80 mg tablet 40 mg PO DAILY 11/22/20 06/28/21 History linagliptin 5 mg tablet (Tradjenta) 5 mg PO DAILY 06/13/21 06/28/21 History betamethasone, augmented 0.05 % 1 applic TOPICAL BID 06/28/21 06/28/21 History topical ointment Patient History Medical History Atrial fibrillation Autoimmune hemolytic anemia CAD (coronary artery disease) CKD (chronic kidney disease), stage III Depression 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 " On 07/25/11 18:09 Dianelys Mack wrote "with neuropathy " On 07/25/11 18:09 Dianelys Mack wrote "with neuropathy " Diverticular disease of colon GERD (gastroesophageal reflux disease) Hearing deficit History of adenomatous polyp of colon History of ITP History of non-Hodgkin's lymphoma Hyperlipidemia Hypertension Myocardial infarction 2013, 2016 Osteoarthritis Thrombocytopenia Unstable angina (12/11/13) Surgical History History of arthroscopy of left shoulder History of bilateral cataract extraction History of cardiac cath 2013, 2016, 09/12/2018 History of cardiac radiofrequency ablation 04/2018 @ [facility] History of colonoscopy History of esophagogastroduodenoscopy (EGD) History of heart artery stent 2013 x1, 2016x1, 09/12/2018 x2(drug eluting stent @ [facility]) History of tonsillectomy and adenoidectomy History of tooth extraction wisdom teeth History of umbilical hernia repair Hx of exploratory laparotomy Presence of Watchman left atrial appendage closure device placed 11/27/18 @ [facility] [place] Status post cholecystectomy "1994" Status post pericardiocentesis Status post vasectomy Family History Sister Family history of diabetes mellitus Family history of reaction to anesthesia difficulty waking Mother Family history of diabetes mellitus Social History Smoking Status: Former smoker Tobacco Type: Cigarettes packs per day: 1; Years Smoked: 30; Cigarettes Per Day: 1 PPD; Smoking End Date: September 12, 1993; Second Hand Exposure: No; Do You Dip or Chew Tobacco: No; Hx Alcohol Use: No Hx Substance Use: No Preferred Language: Chinese Communication Ability: Effective Turn Supervisor Required: No Beliefs That Will Affect Care: None marital status: / Current Living Situation: Alone current occupation: Retired Other Information That Helps Us Care for You: No Feels Safe at Home: Yes Assistive Devices: Glasses and Walker Review of Systems Review of Systems: All systems reviewed & are unremarkable except as noted in HPI & below Physical Exam Constitutional: + ill appearing Respiratory: normal respiratory effort, lungs clear to auscultation Cardiovascular: RRR, no murmur, no edema Gastrointestinal (Abdomen): normal bowel sounds, soft, nontender, no hepatosplenomegaly Neurologic: Mild right ischial droop, cognitive function intact, fluent speech. No word finding difficulties at present. Results & Data ([facility]) Vital Signs (Past 12 Hours) Vital Signs Temp Pulse Pulse Resp BP BP Pulse Ox 06/29/21 07:13 36.8 C 60 18 179/90 H 94 06/29/21 04:00 36.6 C 61 18 125/61 96 06/29/21 00:33 62 06/29/21 00:16 36.7 C 59 L 18 173/79 H 94 Diagnostic Findings EKG performed 06/28/2029reviewed independently revealed sinus rhythm at 70 bpm, poor R wave progression anterior leads, chronic prolonged QT interval 505 ms. Echocardiogram performed today revealed no significant valvular pathology, normal EF, intact interatrial septum.
--- NOTE | 2021-06-29 12:50 | Electrocardiogram Report ---
Test Reason : Blood Pressure : / mmHG Vent. Rate : 070 BPM Atrial Rate : 070 BPM P-R Int : 154 ms QRS Dur : 094 ms QT Int : 468 ms P-R-T Axes : 022 -27 016 degrees QTc Int : 505 ms Poor data quality, interpretation may be adversely affected Normal sinus rhythm Poor R wave progression, consider anterior PA vs. lead placement vs. LVH Abnormal ECG When compared with ECG of 13-JUN-2021 15:11, No significant change was found Confirmed by Joe Sotelo ([id number]) on 06/29/2021 12:50:03 PM Referred By: REFERRED SELF Confirmed By:Joe Sotelo
--- NOTE | 2021-06-29 17:23 | Hospitalist Progress Note ---
Date of Service June 29, 2021 Assessment & Plan (1) Stroke-like symptoms: Plan: Pt is 76 y/o M with PMH paroxysmal atrial flutter s/p pulmonary vein isolation procedure with cryoablation in 2018, watchman procedure 2018, CAD s/p stent, DM II, HTN, dyslipidemia, CKD III, PVD, h/o ITP, h/o non-Hodgkin lymphoma s/p chemo, GERD, recurrent falls presented to ER for strokelike symptoms. Had fall today and used [employer]. Neighbor checked on pt and was found to be in normal state then had onset of right facial droop and slurred speech. In ER patient was noted to have right facial droop and slurred speech. He was taken to CT scan and upon return from CT scan symptoms have improved. Telemetry stroke recommended no TPA. CT head: No acute intracranial findings CTA head and neck without occlusion, significant stenosis, aneurysm, dissection MRI showed 4 mm hyperintense focus within the left thalamus on diffusion- weighted sequence. This favors a small acute to subacute infarct. Tele to monitor showed no arrhythmia arrhythmias Echo showed no significant valve pathology. interatrial septum is intact with no evidence for atrial septal defect. Left ventricular is normal in size with ejection fraction 55 to 60%. Lipid profile : cholesterol 117, LDL 47 and HDL 42 Continue aspirin and Plavix Atorvastatin increased to 40mg daily Continue permissive HTN, labetalol SBP>190 Neuro on board Will consult cardiology since pt has a watchman procedure done about 1 year ago (2) Recurrent falls: Plan: H/O recurrent falls, positive Romberg Follows with [facility] - thought possible parkinsonism -patient on carbidopa levodopa. Evaluated by [facility] movement specialist and thought falls were multifactorial Fall precautions PT/OT eval (3) Atrial fibrillation: Plan: S/P pulmonary vein isolation procedure with cryoablation in 2018. S/P watchman procedure in 2019 Continue Tikosyn, metoprolol (4) Diabetes mellitus type 2 in nonobese: Plan: A1c: 6.3 on 04/18/2021 Hold home glycemic agents Basal bolus insulin per protocol (5) Hypertension: Plan: Initially patient hypertensive in ER BP up to 209/102 patient was started on nicardipine drip which was then discontinued. BP 168/78 Continue valsartan, metoprolol (6) Hyperlipidemia: Plan: Increase atorvastatin from 20 mg to 40 mg daily (7) CKD (chronic kidney disease), stage III: Plan: Cr: 1.26. Baseline 1.1 Monitor renal functions, avoid nephrotoxic agents when possible (8) CAD (coronary artery disease): Plan: S/p stent. Patient with history of stent restenosis and is on dual antiplatelet Continue aspirin, Plavix, metoprolol, atorvastatin (9) History of ITP: Plan: Continue dapsone (10) Depression: Plan: Continue duloxetine, Buspar DVT Prophylaxis -Heparin SQ Full Code as per discussion with pt Follows with Dr Brooks for routine care Pt was seen and care coordinated with Dr Laughlin. See addendum Admission and Anticipated Discharge Date Admission Date: June 28, 2021 Subjective Pt was seen and examined for follow Lying in bed with no distress Pt said that he feels ok today He said that his speech is getting better Spoke to his daughter over the phone and provided with update Denies any chest pain, palpitation, dizziness and SOB Review of Systems Review of Systems: All systems reviewed & are unremarkable except as noted in Subjective Physical Exam Physical Exam: General- No acute distress Head- atraumatic Eyes- PERRL, EOMI, ENT- oropharynx clear Neck- supple, no JVD Lungs- clear to auscultation Heart- regular rhythm; no murmur Abdomen- normal bowel sounds, soft, nontender Extremities- no calf tenderness Neuro- alert, oriented x 3; PERRL, EOMI; no facial palsy; no dysarthria Skin- warm & dry Results & Data Results & Data ([facility]) Vital Signs (Past 12 Hours) Vital Signs Temp Pulse Resp BP Pulse Ox 06/29/21 15:05 36.8 C 63 18 119/65 92 06/29/21 11:00 36.9 C 61 18 174/74 H 92 06/29/21 07:13 36.8 C 60 18 179/90 H 94 (1) Hypertension Hypertension type: primary hypertension Qualified Code(s): I10 - Essential (primary) hypertension
[2021-06-29] MEDS: TAMSULOSIN HCL 0.4 MG CAP PO SCH (20:26)
[2021-06-29] MEDS: DAPSONE 25 MG TAB PO SCH (20:27)
[2021-06-29] MEDS: FLUTICASONE PROPIONATE NA SPR 16 GM BTL NAE SCH (20:28)
[2021-06-29] MEDS ORDERED: ASPIRIN 81 MG ECTAB PO SCH (21:00)
[2021-06-30] MEDS: VALSARTAN 80 MG TAB PO SCH (07:05)
[2021-06-30] MEDS: METOPROLOL SUCC 50MG EXT REL TAB PO SCH (07:05)
[2021-06-30] MEDS: BETAMETHASONE DIP AUG (DIPROLENE) 0.05% CR 15 GM TUBE EXT SCH (07:05)
[2021-06-30] MEDS: CARBIDOPA/LEVODOPA 25/100MG TAB PO SCH ×2 (07:05→13:14)
[2021-06-30] MEDS: CYANOCOBALAMIN 500 MCG TABLET (VITAMIN B-12) PO SCH (07:06)
[2021-06-30] MEDS: MULTIVITAMIN TAB PO SCH (07:06)
[2021-06-30] MEDS: CLOPIDOGREL BISULFATE 75 MG TAB PO SCH (07:06)
[2021-06-30] MEDS: PANTOprazole 40 MG TAB PO SCH (07:06)
[2021-06-30] MEDS: DOFETILIDE 125 MCG CAPSULE PO SCH (07:06)
[2021-06-30] MEDS: ATORVASTATIN 40 MG TAB PO SCH (07:06)
[2021-06-30] MEDS: DULoxetine HCL 30 MG CAP PO SCH (07:06)
[2021-06-30] MEDS: INSULIN ASPART 100 UNITS/ML 3 ML PEN SC SCH ×3 (08:11→16:52)
[2021-06-30] MEDS: INSULIN GLARGINE SOLOSTAR 100 UNITS/ML 3 ML PEN SC SCH (08:11)
[2021-06-30] MEDS ORDERED: POTASSIUM CHLORIDE 10 MEQ TABCR PO SCH (09:00)
[2021-06-30] MEDS ORDERED: FUROSEMIDE 20 MG TAB PO SCH (09:00)
--- NOTE | 2021-06-30 11:03 | Cardiology Progress Note ---
Date of Service June 30, 2021 Assessment & Plan (1) Thalamic stroke: (2) Paroxysmal atrial fibrillation: (3) CAD (coronary artery disease): (4) Recurrent falls: Plan: Thalamic stroke. Neurology input noted and appreciated. Patient has a history of complex LAD intervention with in-stent restenosis that occurred in a short interval of time. Chronic dual antiplatelet therapy has therefore been felt to be indicated, and in an effort to avoid therapy with an oral anticoagulant plus aspirin and clopidogrel, he underwent a Watchman device. No atrial fibrillation noted on telemetry or EKG thus far. Given his stroke risk factors, under other circumstances I would recommend elimination of aspirin and ongoing therapy with clopidogrel plus a direct oral anticoagulant such as Eliquis or Coumadin, but he has had recurrent chronic falls, and at present I feel that the risk of anticoagulation may be prohibitive. He does have a history of past ITP, but his platelet counts have been stable off of therapy more recently. Continue aspirin clopidogrel.. He has had an exhaustive work-up for dizziness including a tilt table test, multiple cardiac monitors to exclude bradycardia, and had been placed on Parkinson's medications by neurology. He continues to decline from the standpoint. Increase valsartan from 40 mg daily to 40 mg BID for high BP. My need to add amlodipine or other agent. BP medications reduced in past due to dizziness, and some degree of HTN has been permited as outpatient however SBP in 170s is to high. Consider inpt stroke rehab. Admission and Anticipated Discharge Date Admission Date: June 28, 2021 Subjective Pt seen in follow up. No complaints. R facial droop resolved. No speech problems or cognitive problems at present. Ambulated from bathroom with the walker. Telemetry reveals SR in the 50s to 70s. Review of Systems Review of Systems: All systems reviewed & are unremarkable except as noted in HPI & below Physical Exam Physical Exam: Temp Pulse Resp BP Pulse Ox 36.2 C L 58 L 16 176/80 H 93 06/30/21 08:24 06/30/21 08:24 06/30/21 08:24 06/30/21 08:24 06/30/21 08:24 Constitutional: no acute distress Respiratory: normal respiratory effort, lungs clear to auscultation Cardiovascular: RRR, no murmur, no edema Gastrointestinal (Abdomen): normal bowel sounds, soft, nontender, no hepatosplenomegaly Neurologic: no focal deficits Results & Data ([facility]) Vital Signs (Past 12 Hours) Vital Signs Temp Pulse Pulse Resp BP Pulse Ox 06/30/21 08:24 36.2 C L 58 L 16 176/80 H 93 06/30/21 04:23 36.7 C 60 20 179/88 H 94 06/30/21 00:06 58 L
[2021-06-30 16:10] VITALS: PULSE 66; TEMP 98.1; O2SAT 96
--- NOTE | 2021-06-30 17:54 | Discharge Summary ---
Date of Service June 30, 2021 Admission HPI Per Admitting Provider Pt is 76 y/o M with PMH paroxysmal atrial flutter s/p pulmonary vein isolation procedure with cryoablation in 2018, watchman procedure 2018, CAD s/p stent, DM II, HTN, dyslipidemia, CKD III, PVD, h/o ITP, h/o non-Hodgkin lymphoma s/p chemo, GERD, recurrent falls presented to ER for strokelike symptoms. Patient reports today he was walking in his house using his walker trying to get to the bathroom when he had onset of feeling like he was going to fall. Patient states his legs started to feel weak and then he fell. He denies hitting his head. He used his life alert button which alerted his daughter at 14:05. A neighbor came to check on patient and was able to get patient up and patient seemed to be fine however then started with right facial droop and slurred speech. Patient had two 81 mg ASA. EMS was called and patient transported to ER. Patient with history recurrent falls, positive Romberg and follows with [facility] and [facility]. Patient states prior to falls he "feels like he is getting fall" and his legs get weak and sometimes has dizziness. [facility] report patient might have possible Parkinson's and patient is on carbidopa levodopa. Today patient does not feel he had dizziness prior to fall. He does report has had frontal headache for most of the day. In ER pt reports had nausea and vomited once. Denies fever/chills, diaphoresis, diarrhea, constipation, syncope, vision changes, neck pain, CP, SOB, orthopnea, palpitations, cough, sore throat, choking, otalgia, rhinorrhea, abdominal pain, paresthesias, weakness, extremity weakness, extremity edema, rashes, urinary symptoms. In ER patient was noted to have right facial droop and slurred speech. He was taken to CT scan and upon return from CT scan symptoms have improved. Telemetry stroke recommended no TPA. Patient currently without symptoms. CT head: No acute intracranial findings, CTA head and neck without occlusion, significant stenosis, aneurysm, dissection Admission Exam Per Admitting Provider General: no distress, WDWN Head: normocephalic, atraumatic Eyes: PERRL, EOM's intact, conjunctiva non-injected, anicteric ENT: normal inspection external ears, nose, mucous membranes moist Neck: supple, trachea midline Lungs: clear, no respiratory distress, no wheezing/rhonchi/rales CV: RRR, no murmur, no pretibial edema Abd: normal BS, soft, non-tender Ext: no cyanosis, no calf tenderness Neuro: A&O x 3, normal affect, facial sensation is intact and symmetric, face is strong and symmetric, hearing grossly intact, soft palate elevates symmetrically, no dysarthria, shoulder shrug intact, tongue is midline, normal m Skin: warm, dry, RLE: Anterior lower leg with abrasion with slight surrounding erythema, no discharge Principal Diagnosis Stroke-like symptoms: Recurrent falls: Atrial fibrillation: Diabetes mellitus type 2 in nonobese: Hypertension: Hyperlipidemia: CKD (chronic kidney disease), stage III: CAD (coronary artery disease): History of ITP: Discharge Exam General- No acute distress Head- atraumatic Eyes- PERRL, EOMI, ENT- oropharynx clear Neck- supple, no JVD Lungs- clear to auscultation Heart- regular rhythm; no murmur Abdomen- normal bowel sounds, soft, nontender Extremities- no calf tenderness Neuro- alert, oriented x 3; PERRL, EOMI; no facial palsy; no dysarthria Skin- warm & dry Discharge Data Allergies Allergy/AdvReac Type Severity Reaction Status Date / Time hydroxyzine Allergy Severe Anaphylaxis Verified 06/28/21 17:28 Gold Salts Allergy Intermediate hives Verified 06/28/21 17:28 losartan Allergy Intermediate hypotension Verified 06/28/21 17:28 triamcinolone Allergy Intermediate "pustules/r Verified 06/28/21 17:28 edness" Penicillins Allergy Mild RASH Verified 06/28/21 17:28 wheat Allergy Mild Rash Verified 06/28/21 17:28 Consultations 06/28/21 17:16 ED Decision to Admit Stat 06/29/21 08:00 Consult Neurology Routine 06/29/21 10:28 Consult Cardiology Routine Ordered Studies 06/28/21 15:55 CT angio head w con Stat CT angio neck with con Stat CT head/brain wo con Stat 06/29/21 03:57 MR brain wo con Routine MRI OF THE BRAIN WITHOUT CONTRAST CLINICAL HISTORY: Stroke symptoms. Weakness. Falls. COMPARISON STUDY: MRI of the brain July 01, 2020. Head CT and CTA of the head June 28, 2021. TECHNIQUE: Utilizing a 1.5 Kate magnet and dedicated coil, multiplanar, multiecho imaging of the brain was performed without IV contrast. FINDINGS: Note is made of a small 4 mm hyperintense focus within the left thalamus on axial diffusion-weighted sequence image 11 of 24. This is mildly hypointense on the ADC map although correlation is difficult given its small size. No additional foci of restricted diffusion are present. Ventricular system is stable. Basal cisterns are patent. There are no extra axial collections. Flow-voids for the major intracranial vessels are present. White matter T2 hyperintense foci suggest small vessel disease. Multiple old lacunar infarcts are also noted. Calvarial signal is normal. No intracranial masses identified on this unenhanced exam. There is moderate atrophy. IMPRESSION: 1. 4 mm hyperintense focus within the left thalamus on diffusion-weighted sequence. This favors a small acute to subacute infarct. 2. Otherwise, unchanged appearance of the brain since MRI of July 01, 2020. ACT 112: Negative or not required by law. Electronically signed by: Len Simons M.D. 06/29/2021 8:48 AM Dictated: 06/29/21 0829Transcribed: 06/29/[address] angio head w con Clinical Indication: MN ^Stroke Like Symptoms . TECHNIQUE: Contiguous axial CT images of the head were acquired from the base of the skull to the vertex without intravenous contrast administration. CT angiography of the head and neck was performed following intravenous administration of 75 mL of Omnipaque 350 injected at a rate of 5 cc/sec. Multiple MIP images in axial, coronal, and sagittal planes and 3D surfaced rendered images were then acquired using the source data. Automated dose lowering techniques and/or adjustment according to patient size were utilized for this examination. Comparison: Comparison is made to CT head 06/28/2021 FINDINGS: CTA Neck: The left common carotid artery shares common origin with the innominate artery. Atherosclerotic plaque is present in the aortic arch and at the origin of the great vessels. Atherosclerotic plaque is present at the origin of the right vertebral artery. The common carotid, external carotid, cervical segments of the internal carotid arteries, and the cervical segments of the vertebral arteries are patent. There is mild calcified atherosclerotic plaque at the bifurcation of the bilateral common carotid arteries without hemodynamically significant flow stenosis. There is no dissection present. The right vertebral artery is dominant. CTA Head: The anterior and posterior cerebral circulations are patent. No hemodynamically significant stenosis, aneurysm, dissection, or arteriovenous malformation is shown. Atherosclerotic disease is noted. IMPRESSION: 1. No occlusion, hemodynamically significant stenosis, aneurysm, dissection, or arteriovenous malformation in the major intracranial arteries. 2. No occlusion, hemodynamically significant stenosis, or dissection in the major cervical arteries. Assessment of stenosis of the internal carotid arteries is based on NASCET criteria. ACT 112: Negative or not required by law. Electronically signed by: Dequan Ramsay M.D. 06/28/2021 4:55 PM Dictated: 06/28/211652Transcribed: 06/28/211652 CT angio head w con Clinical Indication: MN ^Stroke Like Symptoms . TECHNIQUE: Contiguous axial CT images of the head were acquired from the base of the skull to the vertex without intravenous contrast administration. CT angiography of the head and neck was performed following intravenous administration of 75 mL of Omnipaque 350 injected at a rate of 5 cc/sec. Multiple MIP images in axial, coronal, and sagittal planes and 3D surfaced rendered images were then acquired using the source data. Automated dose lowering techniques and/or adjustment according to patient size were utilized for this examination. Comparison: Comparison is made to CT head 06/28/2021 FINDINGS: CTA Neck: The left common carotid artery shares common origin with the innominate artery. Atherosclerotic plaque is present in the aortic arch and at the origin of the great vessels. Atherosclerotic plaque is present at the origin of the right vertebral artery. The common carotid, external carotid, cervical segments of the internal carotid arteries, and the cervical segments of the vertebral arteries are patent. There is mild calcified atherosclerotic plaque at the bifurcation of the bilateral common carotid arteries without hemodynamically significant flow stenosis. There is no dissection present. The right vertebral artery is dominant. CTA Head: The anterior and posterior cerebral circulations are patent. No hemodynamically significant stenosis, aneurysm, dissection, or arteriovenous malformation is shown. Atherosclerotic disease is noted. IMPRESSION: 1. No occlusion, hemodynamically significant stenosis, aneurysm, dissection, or arteriovenous malformation in the major intracranial arteries. 2. No occlusion, hemodynamically significant stenosis, or dissection in the major cervical arteries. Assessment of stenosis of the internal carotid arteries is based on NASCET c phuc. ACT 112: Negative or not required by law. Electronically signed by: Dequan Ramsay M.D. 06/28/2021 4:53 PM Dictated: 06/28/21 1643Transcribed: 06/28/[address] head/brain wo con Clinical Indication: MN ^Stroke Like Symptoms . Technique: Contiguous axial CT images of the head were acquired from the base of the skull to the vertex without intravenous contrast administration. Images were viewed in brain, subdural and bone windows. Automated dose lowering techniques and/or adjustment according to patient size were utilized for this exam. Comparison: None available at the time of this dictation. Findings: Areas of decreased attenuation are present in the periventricular and subcortical white matter bilaterally consistent with small vessel ischemic disease. Generalized cerebral atrophy with commensurate enlargement of the ventricles, sulci, and cisterns is also present. There is no acute intracranial hemorrhage or evidence of acute territorial infarction. No shift of the midline structures, mass effect, or extra-axial abnormalities are shown. Atherosclerotic calcifications are present in the intracranial segments of the internal carotid arteries. 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 Mucous filling of the ethmoid sinuses noted. The orbits appear normal. There are no acute fractures of the calvaria or scalp swelling. Impression: No acute intracranial hemorrhage, evidence of acute territorial infarction, or other acute intracranial disease process. ACT 112: Negative or not required by law. Electronically signed by: Dequan Ramsay M.D. 06/28/2021 4:19 PM Dictated: 06/28/21 1617Transcribed: 06/28/21 1617 XR chest 1V portable CLINICAL HISTORY: Stroke Like Symptoms COMPARISON STUDY: Chest radiograph January 20, 2021. Chest CT 06/13/2021. FINDINGS: Left humeral proximal internal fixation is partially imaged. Lung volumes are mildly diminished. There is no pneumothorax or pleural effusion. There is cardiomegaly. There is pulmonary vascular congestion. No consolidation is identified. IMPRESSION: 1. Cardiomegaly with pulmonary vascular congestion. 2. Low lung volumes. ACT 112: Negative or not required by law. Electronically signed by: Len Simons M.D. 06/28/2021 4:39 PM Dictated: 06/28/21 1637Transcribed: 06/28/21 1637 Hospital Course (1) Stroke-like symptoms: Pt is 76 y/o M with PMH paroxysmal atrial flutter s/p pulmonary vein isolation procedure with cryoablation in 2018, watchman procedure 2018, CAD s/p stent, DM II, HTN, dyslipidemia, CKD III, PVD, h/o ITP, h/o non-Hodgkin lymphoma s/p chemo, GERD, recurrent falls presented to ER for strokelike symptoms. Had fall today and used LifeAlert. Neighbor checked on pt and was found to be in normal state then had onset of right facial droop and slurred speech. In ER patient was noted to have right facial droop and slurred speech. He was taken to CT scan and upon return from CT scan symptoms have improved. Telemetry stroke recommended no TPA. CT head: No acute intracranial findings CTA head and neck without occlusion, significant stenosis, aneurysm, dissection MRI showed 4 mm hyperintense focus within the left thalamus on diffusion- weighted sequence. This favors a small acute to subacute infarct. Tele to monitor showed no arrhythmia arrhythmias Echo showed no significant valve pathology. interatrial septum is intact with no evidence for atrial septal defect. Left ventricular is normal in size with ejection fraction 55 to 60%. Lipid profile : cholesterol 117, LDL 47 and HDL 42 Continue aspirin and Plavix Decision was made not to anticoagulate due to pt high risk of falls Since LDL at goal will continue Atorvastatin 20mg daily (check Lipid panel in 3 to 6 months) Continue permissive HTN, labetalol SBP>190 Neuro on board Will consult cardiology since pt has a watchman procedure done about 1 year ago Ok from neuro and cardiology standpoint to discharge home (2) Recurrent falls: H/O recurrent falls, positive Romberg Follows with [facility] - thought possible parkinsonism -patient on carbidopa levodopa. Evaluated by [facility] movement specialist and thought falls were multifactorial Fall precautions PT/OT eval (3) Atrial fibrillation: S/P pulmonary vein isolation procedure with cryoablation in 2018. S/P watchman procedure in 2019 Continue Tikosyn, metoprolol (4) Diabetes mellitus type 2 in nonobese: A1c: 6.3 on 04/18/2021 Hold home glycemic agents Basal bolus insulin per protocol (5) Hypertension: Initially patient hypertensive in ER BP up to 209/102 patient was started on nicardipine drip which was then discontinued. BP 168/78 Continue metoprolol valsartan increased to 40mg (6) Hyperlipidemia: Increase atorvastatin from 20 mg to 40 mg daily (7) CKD (chronic kidney disease), stage III: Cr: 1.26. Baseline 1.1 Monitor renal functions, avoid nephrotoxic agents when possible (8) CAD (coronary artery disease): S/p stent. Patient with history of stent restenosis and is on dual antiplatelet Continue aspirin, Plavix, metoprolol, atorvastatin (9) History of ITP: Continue dapsone (10) Depression: Continue duloxetine, Buspar DVT Prophylaxis -Heparin SQ Full Code as per discussion with pt Follows with Dr Brooks for routine care Total Time Total Time Spent Total Time Spent (In Minutes): 35 minutes Discharge Plan Discharge Items Patient Disposition: Home - Self-Care Reason For Visit: STROKE SYMPTOMS Discharge Diagnosis: Stroke-like symptoms: Recurrent falls: Atrial fibrillation: Diabetes mellitus type 2 in nonobese: Hypertension: Hyperlipidemia: CKD (chronic kidney disease), stage III: CAD (coronary artery disease): History of ITP: Activity: Resume your previous activity Non-emergency contact: Primary Care Provider, Business Editor and Neurologist Call non-emergency contact if: you have any medication questions Follow-up/Referrals: Rosa Brooks MD [Primary Care Provider] - (Date & Time 07/06/2021 11:00 AM Provider Rosa Brooks MD Department General Internal Medicine [facility], [place] ) Diet: Carb Consistent or DM2 and Heart Healthy Addtl Attending Provider Instructions: Follow up with your primary care provider Dr. Lee on 07/06/2021 @ 11:00 AM at the General Internal Medicine [facility] [place] Follow up with your neurology Follow up with your cardiology Continue outpatient physical therapy Continue to use walker to ambulate fall precaution valsartan increased to 40mg twice a day Continue monitor your blood pressure and bring your blood pressure log at your next follow up appointment with your provider Pending Studies at Discharge: No Stand-Alone Forms: Medications to Prevent Stroke, [facility] [employer], Smoking Cessation Medications and DC Order Prescriptions: New pantoprazole [Protonix] 20 mg tablet,delayed release (DR/EC) 20 mg PO BID 30 Days Qty: 60 RF: 0 Continued metoprolol succinate [Toprol XL] 50 mg tablet extended release 24 hr 50 mg PO BID RF: 0 cyanocobalamin (vitamin B-12) 1,000 mcg Tablet 1,000 mcg PO QAM RF: 0 clopidogrel 75 mg tablet 75 mg PO QAM RF: 0 dapsone 25 mg tablet 25 mg PO QPM RF: 0 fluticasone propionate 50 mcg/actuation spray,suspension 2 spray Intranasal HS RF: 0 metformin 500 mg tablet extended release 24 hr 500 mg PO BID RF: 0 glipizide 10 mg tablet 10 mg PO DAILY RF: 0 tamsulosin [Flomax] 0.4 mg capsule 0.4 mg PO HS RF: 0 aspirin 81 mg Tablet,Delayed Release (Dr/Ec) 81 mg PO HS RF: 0 nitroglycerin [Nitrostat] 0.4 mg Tablet, Sublingual 1 dose Sublingual DIRECTED PRN (Reason: Angina) RF: 0 furosemide [Lasix] 20 mg Tablet 20 mg PO Q OTHER DAY RF: 0 potassium chloride 10 mEq Capsule, Extended Release 10 meq PO Q OTHER DAY RF: 0 dofetilide 250 mcg capsule 250 mcg PO Q12 RF: 0 buspirone 5 mg tablet 5 mg PO BID PRN (Reason: Anxiety) RF: 0 carbidopa-levodopa 25-100 mg tablet 1.5 tab PO TID RF: 0 atorvastatin 20 mg Tablet 20 mg PO DAILY RF: 0 acetaminophen [Acetaminophen Extra Strength] 500 mg Tablet 1,000 mg PO Q8 PRN (Reason: Fever Or Pain) RF: 0 duloxetine 30 mg capsule,delayed release(DR/EC) 30 mg PO DAILY RF: 0 multivitamin Tablet 1 tab PO DAILY RF: 0 Tradjenta 5 mg tablet 5 mg PO DAILY RF: 0 betamethasone, augmented 0.05 % ointment 1 applic TOPICAL BID RF: 0 Changed valsartan 80 mg tablet 40 mg PO BID 30 Days Qty: 30 RF: 0 Discontinued omeprazole 20 mg capsule,delayed release(DR/EC) 20 mg PO BID RF: 0 Discharge Orders: Discharge Order (Routine); Ordered 06/30/21 Ordered By: Shyam Clement/Other Patient Handouts: Managing Type 2 Diabetes, 5 Steps for Eating Healthier, Special Foot Care for Diabetes Admission Data Admit Date/Time: 06/28/21 17:55 Attending Provider: Shyam Lopez Admit Provider: Riana Laughlin Primary Care Provider: Rosa Brooks Other Providers: Riana Laughlin ; Itz Jimenez ; Domo Alaniz Other Interventions: Discharge Summary Assessment (RN) Last Done: 06/30/21 18:09
[2021-06-30] MEDS ORDERED: STROKE PATIENT DISCHARGE STA (18:04)
[2021-06-30 18:10] VITALS: BP 146/73
--- NOTE | 2021-06-30 18:35 | Pharmacy Report ---
Pharmacist Stroke Counseling - Date of Service June 30, 2021 - Scope: Pharmacy has been consulted to provide medication discharge counseling for this patient admitted with [ischemic stroke] [hemorrhagic stroke] [transient ischemic attack] as per the Pharmacist Discharge Counseling for Stroke Patients Pr otocol. - Medications on Discharge: Home Medications Medication Instructions Recorded Confirmed clopidogrel 75 mg tablet 75 mg PO QAM 08/27/18 06/28/21 cyanocobalamin (vitamin B-12) 1,000 mcg PO QAM 08/27/18 06/28/21 1,000 mcg tablet dapsone 25 mg tablet 25 mg PO QPM 08/27/18 06/28/21 fluticasone propionate 50 2 spray INTRANASAL HS 08/27/18 06/28/21 mcg/actuation nasal spray,suspension metformin 500 mg tablet,extended 500 mg PO BID 08/27/18 06/28/21 release 24 hr aspirin 81 mg tablet,delayed 81 mg PO HS 09/25/18 06/28/21 release nitroglycerin 0.4 mg sublingual 1 dose SUBLINGUAL DIRECTED PRN 09/25/18 06/28/21 tablet (Nitrostat) tamsulosin 0.4 mg capsule (Flomax) 0.4 mg PO HS 12/11/18 06/28/21 furosemide 20 mg tablet (Lasix) 20 mg PO Q OTHER DAY 02/02/19 06/28/21 potassium chloride 10 mEq 10 meq PO Q OTHER DAY 02/02/19 06/28/21 capsule,extended release metoprolol succinate 50 mg 50 mg PO BID tab 09/10/19 06/28/21 tablet,extended release 24 hr (Toprol XL) glipizide 10 mg tablet 10 mg PO DAILY tab 02/26/20 06/28/21 acetaminophen 500 mg tablet 1,000 mg PO Q8 PRN 11/22/20 06/28/21 (Acetaminophen Extra Strength) atorvastatin 20 mg tablet 20 mg PO DAILY 11/22/20 06/28/21 buspirone 5 mg tablet 5 mg PO BID PRN 11/22/20 06/28/21 carbidopa 25 mg-levodopa 100 mg 1.5 tab PO TID 11/22/20 06/28/21 tablet dofetilide 250 mcg capsule 250 mcg PO Q12 11/22/20 06/28/21 duloxetine 30 mg capsule,delayed 30 mg PO DAILY 11/22/20 06/28/21 release multivitamin 1 tab PO DAILY 11/22/20 06/28/21 linagliptin 5 mg tablet (Tradjenta) 5 mg PO DAILY 06/13/21 06/28/21 betamethasone, augmented 0.05 % 1 applic TOPICAL BID 06/28/21 06/28/21 topical ointment New Rx's Medication Instructions Recorded pantoprazole 20 mg tablet,delayed 20 mg PO BID 30 Days #60 tab 06/30/21 release (Protonix) valsartan 80 mg tablet 40 mg PO BID 30 Days #30 tab 06/30/21 - Action: The above medications, specifically ones for stroke treatment/prophylaxis, have been reviewed in detail with the patient prior to discharge. This includes indication, common adverse reactions, drug interactions, and medication administration. Medication counseling has been employed using the teach-back method to ensure understanding. - Outcome: The patient has demonstrated understanding of the medications. Additional comments: -had prilosec changed to protonix due to potential interaction Thank you for allowing pharmacy to be involved in the care of this patient. Please call [phone] with any additional questions
[2021-06-30] MEDS ORDERED: VALSARTAN 80 MG TAB PO SCH (21:00)
== END 2021-06-30 18:45 | disposition home or self-care (01) ==
LOC: EDBD → ED 15:52 → MERGE 15:52 → SUATTDRO 17:55 → INTOOBSV 17:55 → 2N 17:55
DX: R47.1 Dysarthria and anarthria; M19.90 Unspecified osteoarthritis, unspecified site; Z95.818 Presence of other cardiac implants and grafts; Z88.0 Allergy status to penicillin; Z20.822 Contact with and (suspected) exposure to COVID-19; Z85.72 Personal history of non-Hodgkin lymphomas; N18.30 Chronic kidney disease, stage 3 unspecified; Z79.84 Long term (current) use of oral hypoglycemic drugs; Z79.01 Long term (current) use of anticoagulants; R29.810 Facial weakness; E78.5 Hyperlipidemia, unspecified; Z88.8 Allergy status to other drugs, medicaments and biological substances; Z87.891 Personal history of nicotine dependence; I12.9 Hypertensive chronic kidney disease with stage 1 through stage 4 chronic kidney disease, or unspecified chronic kidney disease; I25.2 Old myocardial infarction; I25.10 Atherosclerotic heart disease of native coronary artery without angina pectoris; Z79.82 Long term (current) use of aspirin; K21.9 Gastro-esophageal reflux disease without esophagitis; R29.90 Unspecified symptoms and signs involving the nervous system; Z79.899 Other long term (current) drug therapy; W19.XXXA Unspecified fall, initial encounter; E11.22 Type 2 diabetes mellitus with diabetic chronic kidney disease; I48.91 Unspecified atrial fibrillation

== ENCOUNTER 2022-03-19 16:09 | Inpatient (IN) ==
--- NOTE | 2022-03-19 16:22 | Emergency Department Note ---
Impression & Plan Closed hip fracture ADMIT ED Provider Note HPI: Patient is a 77-year-old gentleman with history of recurrent falls, paroxysmal atrial fibrillation, status post watchman procedure, artery disease on dual antiplatelet therapy, non-Hodgkin lymphoma status postchemotherapy, presents the emergency department after a fall. Patient states he was attempting get his walker out of the back of a truck when he fell on the pavement. Patient states he fell on his left hip and has acute pain in his left hip on arrival. Patient has minimal flexion at the left hip secondary to pain. Patient denies hitting his head, denies any loss of consciousness. Patient states that he fell typical of his previous falls stating that he lost his balance, denies any preceding chest pain or shortness of breath, denies any loss of consciousness. On arrival the patient is noted to have oxygen saturation at 89% with only minimal increased work of breathing, he was given fentanyl and Zofran prior to arrival. Patient was hypertensive on arrival. He is otherwise alert and oriented, he is in mild distress secondary to pain. ROS: -MSK: Left hip pain *10 point review systems was conducted and is otherwise negative unless stated above *Outpatient medications and allergy history reviewed PE: General: Alert, NAD HEENT: Normocephalic, atraumatic Eyes: Extraocular eye movement is intact, no scleral erythema Pulmonary: Slightly diminished bilaterally without wheezing Cardio: Regular rate and rhythm GI: Abdomen is soft, nontender : No suprapubic tenderness MSK: Limited range of motion at the left hip joint secondary to pain, patient has motor and sensory function intact distally in the left foot Skin: No evidence of rash Neuro: Alert, no focal deficits Psychiatric: Cooperative site monitor: - An order was placed for continuous cardiac monitoring - Patient was noted to be in sinus rhythm with rate of 80 EKG: Rate: 69 Rhythm: Normal sinus rhythm Intervals: Within normal limits ST changes: No ST elevation Time: 1627 Medical Decision Making: Patient presented to the emergency department after mechanical fall, complaint of left hip pain. X-ray imaging does confirm evidence of a closed left hip fracture. CT imaging of the head does not show any evidence of an acute intracranial abnormality. Patient was given morphine here in the ED for pain, was given fentanyl and Zofran in the field for pain. Lab work shows mild hyponatremia 129 of which the patient does have a history, also shows a white blood cell count of 16.5 which I suspect is reactive secondary to the patient's pain. Blood pressure did downtrend here in the ED with pain control, patient was noted to have oxygen saturation at 89%, patient was placed on nasal cannula oxygen at 2 L with good improvement in his oxygenation, he does not exhibit any increased work of breathing. Unclear source of his hypoxia at this time, he denies any chest pain and states subjectively he does not feel short of breath, he has mild cardiomegaly, his blood pressure is down trended as has his work of breathing with pain control. Chest x-ray shows some cardiomegaly without any evidence of pneumonia. COVID-19 test pending at the time of admission, case was discussed with the admitting hospitalist service for [facility] and the patient was admitted in stable condition. Dr. Barr of the orthopedic service was consulted and I did discuss the case with him on the phone he is aware of the consultation. Critical care time: 31 minutes -Stabilization of hypoxia (89% on room air) requiring nasal cannula oxygen to improve oxygen saturation above 90%, time spent at the bedside, discussion with consulting services and arrangement of admission Diagnosis: 1. Left-sided hip fracture, closed 2. Hyponatremia, acute on chronic 3. Leukocytosis 4. Hypoxia Disposition: Admission Wood Sanford DO Emergency Medicine Past Med/Surg History Medical History (Updated 03/19/22 @ 18:34 by Paras Barr MD) Autoimmune hemolytic anemia CAD (coronary artery disease) Chronic coronary heart disease patient with history of complex interventions with progression/in stent restenosis within 6 months of stopping clopidogrel after an LAD intervention plus new lesions in the same vessel and therefore he is on chronic dual anti-platelet therapy. 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 " On 07/25/11 18:09 Dianelys Mack wrote "with neuropathy " On 07/25/11 18:09 Dianelys Mack wrote "with neuropathy " Diverticular disease of colon GERD (gastroesophageal reflux disease) Hearing deficit History of adenomatous polyp of colon History of non-Hodgkin's lymphoma Hypertension Myocardial infarction 2013, 2016 Osteoarthritis Paroxysmal atrial fibrillation pulmonary vein isolation procedure 05/06/2018 with cryoablation Presence of Watchman left atrial appendage closure device Thrombocytopenia Unstable angina (12/11/13) Surgical History History of arthroscopy of left shoulder History of bilateral cataract extraction History of cardiac cath 2013, 2016, 09/12/2018 History of cardiac radiofrequency ablation 04/2018 @ [facility] History of colonoscopy History of esophagogastroduodenoscopy (EGD) History of heart artery stent 2013 x1, 2016x1, 09/12/2018 x2(drug eluting stent @ [facility]) History of tonsillectomy and adenoidectomy History of tooth extraction wisdom teeth History of umbilical hernia repair Hx of exploratory laparotomy Presence of Watchman left atrial appendage closure device placed 11/27/18 @ [facility] Status post cholecystectomy "1994" Status post pericardiocentesis Status post vasectomy Family History Sister Family history of diabetes mellitus Family history of reaction to anesthesia difficulty waking Mother Family history of diabetes mellitus Social History Smoking Status: Never smoker Tobacco Type: Cigarettes packs per day: 1; Years Smoked: 30; Cigarettes Per Day: 1 PPD; Second Hand Exposure: No; Hx Alcohol Use: No Hx Substance Use: No Preferred Language: Sinhala Communication Ability: Effective Executive Receptionist Required: No Beliefs That Will Affect Care: None marital status: / Current Living Situation: Alone current occupation: Retired Feels Safe at Home: Yes Assistive Devices: Walker Allergies Allergies Allergy/AdvReac Type Severity Reaction Status Date / Time hydroxyzine Allergy Severe Anaphylaxis Verified 06/28/21 17:28 Gold Salts Allergy Intermediate hives Verified 06/28/21 17:28 losartan Allergy Intermediate hypotension Verified 06/28/21 17:28 triamcinolone Allergy Intermediate "pustules/r Verified 06/28/21 17:28 edness" Penicillins Allergy Mild RASH Verified 06/28/21 17:28 wheat Allergy Mild Rash Verified 06/28/21 17:28 Home Meds Home Medications Medication Instructions Recorded Confirmed clopidogrel 75 mg tablet 75 mg PO QAM 08/27/18 06/28/21 cyanocobalamin (vitamin B-12) 1,000 mcg PO QAM 08/27/18 06/28/21 1,000 mcg tablet dapsone 25 mg tablet 25 mg PO QPM 08/27/18 06/28/21 fluticasone propionate 50 2 spray INTRANASAL HS 08/27/18 06/28/21 mcg/actuation nasal spray,suspension metformin 500 mg tablet,extended 500 mg PO BID 08/27/18 06/28/21 release 24 hr aspirin 81 mg tablet,delayed 81 mg PO HS 09/25/18 06/28/21 release nitroglycerin 0.4 mg sublingual 1 dose SUBLINGUAL DIRECTED PRN 09/25/18 06/28/21 tablet (Nitrostat) tamsulosin 0.4 mg capsule (Flomax) 0.4 mg PO HS 12/11/18 06/28/21 furosemide 20 mg tablet (Lasix) 20 mg PO Q OTHER DAY 02/02/19 06/28/21 potassium chloride 10 mEq 10 meq PO Q OTHER DAY 02/02/19 06/28/21 capsule,extended release metoprolol succinate 50 mg 50 mg PO BID tab 09/10/19 06/28/21 tablet,extended release 24 hr (Toprol XL) glipizide 10 mg tablet 10 mg PO DAILY tab 02/26/20 06/28/21 acetaminophen 500 mg tablet 1,000 mg PO Q8 PRN 11/22/20 06/28/21 (Acetaminophen Extra Strength) atorvastatin 20 mg tablet 20 mg PO DAILY 11/22/20 06/28/21 buspirone 5 mg tablet 5 mg PO BID PRN 11/22/20 06/28/21 dofetilide 250 mcg capsule 250 mcg PO Q12 11/22/20 06/28/21 duloxetine 30 mg capsule,delayed 30 mg PO DAILY 11/22/20 06/28/21 release multivitamin 1 tab PO DAILY 11/22/20 06/28/21 linagliptin 5 mg tablet (Tradjenta) 5 mg PO DAILY 06/13/21 06/28/21 betamethasone, augmented 0.05 % 1 applic TOPICAL BID 06/28/21 06/28/21 topical ointment Previous Rx's Medication Instructions Recorded valsartan 80 mg tablet 40 mg PO BID 30 Days #30 tab 06/30/21 Results & Data (ED) Vital Signs Vital Signs - 24 hr 03/19/22 15:55 03/19/22 16:14 03/19/22 16:16 Temperature 36.7 C Temperature Source Oral Pulse Rate 71 71 Pulse Rate [Apical] 71 Pulse Rhythm [Apical] Regular Respiratory Rate 18 18 18 Blood Pressure 206/106 H Blood Pressure [Left Arm] 206/106 H Blood Pressure Mean 139 Blood Pressure Mean [Left Arm] 139 Pulse Oximetry 94 94 94 Oxygen Delivery Method Nasal Cannula Oxygen Flow Rate 2 Sepsis Recent Fever Within 48 Hours No Sepsis New/Unexplained Change in Mental Status No Sepsis Action Taken by Nursing No Action Required 03/19/22 18:14 Temperature Temperature Source Pulse Rate Pulse Rate [Apical] 70 Pulse Rhythm [Apical] Respiratory Rate 20 Blood Pressure Blood Pressure [Left Arm] 167/114 H Blood Pressure Mean Blood Pressure Mean [Left Arm] 131 Pulse Oximetry 90 Oxygen Delivery Method Oxygen Flow Rate Sepsis Recent Fever Within 48 Hours Sepsis New/Unexplained Change in Mental Status Sepsis Action Taken by Nursing Laboratory Data Result diagrams: 03/19/22 16:28 03/19/22 16:28 Lab Results 03/19/22 03/19/22 03/19/22 Range/Units 16:28 16:28 16:28 WBC 16.50 H (4.8-10.8) K/uL RBC 4.74 (4.7-6.1) M/uL Hgb 14.6 (14.0-18.0) g/dL Hct 41.0 L (42-52) % MCV 86.5 (80-100) fL MCH 30.8 (25-34) pg MCHC 35.6 (32-36) g/dL RDW Std Deviation 39.2 (36.4-46.3) fL RDW Coeff of [place] 12.2 (11.5-14.5) % Plt Count 238 (130-400) K/uL MPV 10.4 (7.4-10.4) fL Immature Gran % (Auto) 0.5 % Neut % (Auto) 85.4 % Lymph % (Auto) 8.4 % [place] % (Auto) 3.8 % Eos % (Auto) 1.8 % Baso % (Auto) 0.1 % Neut # (Auto) 14.09 H (1.4-6.5) K/uL Lymph # (Auto) 1.39 (1.2-3.4) K/uL [place] # (Auto) 0.62 H (0.11-0.59) K/uL Eos # (Auto) 0.29 (0-0.5) K/uL Baso # (Auto) 0.02 (0-0.2) K/uL Immature Gran # (Auto) 0.09 H (0.00-0.02) K/uL PT 10.8 (9.0-12.0) Seconds INR 1.0 (0.9-1.1) APTT 26.2 (21.0-31.0) Seconds PTT Ratio 1.0 VBG pH (7.36-7.41) VBG pCO2 (38-50) mmHg VBG pO2 mmHg VBG HCO3 mmol/L VBG O2 Saturation % VBG Base Excess mEq/L Barometric Pressure mm/Hg Sodium 129 L (136-145) mmol/L Potassium 3.9 (3.5-5.1) mmol/L Chloride 95 L (98-107) mmol/L Carbon Dioxide 24 (21-32) mmol/L Anion Gap 10 (3-11) BUN 8 (6-23) mg/dl Creatinine 0.86 (0.6-1.4) mg/dl Est Cr Clr Drug Dosing 65.1 ml/min Est GFR ( Amer) 95.6 ml/min Est GFR (Non-Af Amer) 82.5 ml/min BUN/Creatinine Ratio 9.3 L (10-20) Glucose 188 H (70-99(Fasting)) mg/dl Calcium 8.6 (8.5-10.1) mg/dl Total Bilirubin 1.1 H (0.2-1.0) mg/dl AST 17 (13-39) U/L ALT 14 (7-52) U/L Alkaline Phosphatase 69 (34-104) U/L Troponin I High Sens 7.1 (0-20) pg/ml Total Protein 6.7 (6.0-8.3) gm/dl Albumin 4.1 (3.4-5.0) gm/dl Globulin 2.6 (2.5-4.0) gm/dl Albumin/Globulin Ratio 1.6 (0.9-2) Lipase 17 (11-82) U/L 03/19/22 Range/Units 16:46 WBC (4.8-10.8) K/uL RBC (4.7-6.1) M/uL Hgb (14.0-18.0) g/dL Hct (42-52) % MCV (80-100) fL MCH (25-34) pg MCHC (32-36) g/dL RDW Std Deviation (36.4-46.3) fL RDW Coeff of [place] (11.5-14.5) % Plt Count (130-400) K/uL MPV (7.4-10.4) fL Immature Gran % (Auto) % Neut % (Auto) % Lymph % (Auto) % [place] % (Auto) % Eos % (Auto) % Baso % (Auto) % Neut # (Auto) (1.4-6.5) K/uL Lymph # (Auto) (1.2-3.4) K/uL [place] # (Auto) (0.11-0.59) K/uL Eos # (Auto) (0-0.5) K/uL Baso # (Auto) (0-0.2) K/uL Immature Gran # (Auto) (0.00-0.02) K/uL PT (9.0-12.0) Seconds INR (0.9-1.1) APTT (21.0-31.0) Seconds PTT Ratio VBG pH 7.36 (7.36-7.41) VBG pCO2 45 (38-50) mmHg VBG pO2 51 mmHg VBG HCO3 25 mmol/L VBG O2 Saturation 83.7 % VBG Base Excess -0.6 mEq/L Barometric Pressure 730.0 mm/Hg Sodium (136-145) mmol/L Potassium (3.5-5.1) mmol/L Chloride (98-107) mmol/L Carbon Dioxide (21-32) mmol/L Anion Gap (3-11) BUN (6-23) mg/dl Creatinine (0.6-1.4) mg/dl Est Cr Clr Drug Dosing ml/min Est GFR ( Amer) ml/min Est GFR (Non-Af Amer) ml/min BUN/Creatinine Ratio (10-20) Glucose (70-99(Fasting)) mg/dl Calcium (8.5-10.1) mg/dl Total Bilirubin (0.2-1.0) mg/dl AST (13-39) U/L ALT (7-52) U/L Alkaline Phosphatase (34-104) U/L Troponin I High Sens (0-20) pg/ml Total Protein (6.0-8.3) gm/dl Albumin (3.4-5.0) gm/dl Globulin (2.5-4.0) gm/dl Albumin/Globulin Ratio (0.9-2) Lipase (11-82) U/L Administered Medications Discontinued Medications Morphine Sulfate (Morphine Sulfate 4 Mg/Ml 1 Ml Carp\\Vial) 4 mg IV NOW STA Stop: 03/19/22 17:53 Last Admin: 03/19/22 18:04 Dose: 4 mg Documented by: [id number] Ondansetron HCl (Ondansetron Inj 2 Mg/Ml 2 Ml Vial) Confirm Administered Dose 4 mg .ROUTE .STK-MED ONE Stop: 03/19/22 18:07 Last Admin: 03/19/22 18:07 Dose: 4 mg Documented by: [id number] Imaging Data Radiologist's Impression: Hip/Pelvis X-Ray 03/19/22 16:15 SINGLE VIEW PELVIS; 2 VIEWS LEFT HIP; 2 VIEWS RIGHT HIP CLINICAL HISTORY: Fall. Left hip injury. FINDINGS: An AP supine view of the pelvis with AP and crosstable lateral views of the left hip as well as AP and frog-leg views of the right hip are obtained. Correlation is made with pelvic CT dated 06/13/2021. The skeletal structures are osteopenic. There is an impacted and comminuted intertrochanteric fracture of the left proximal femur. The fragments are mildly angulated and overlying soft tissue edema is noted. No additional acute fracture is seen involving the right hip or the bony pelvis. Moderate arthritic change and joint space narrowing is seen in both hips. There is mild degenerative sclerosis of the sacroiliac joints. Surgical clips project over the scrotum. Lumbosacral spondylosis is partially imaged. IMPRESSION: Impacted and angulated intertrochanteric fracture of the left proximal femur as above. Electronically signed by: Gareth Rosado M.D. 03/19/2022 5:19 PM Chest X-Ray 03/19/22 16:16 SINGLE VIEW CHEST CLINICAL HISTORY: Atypical chest pain. FINDINGS: An AP, portable, supine chest radiograph is compared to study dated 06/28/2021 and correlated with chest CT dated 06/13/2021. The examination is degraded by portable technique and apical lordotic positioning. The heart is enlarged noting atherosclerotic calcification of the thoracic aorta. The pulmonary vasculature is noncongested. Scarring/atelectasis is seen in the lung bases. No airspace consolidation or large pleural effusion is identified. No pneumothorax is seen. The skeletal structures are osteopenic. Posttraumatic deformity and postoperative change is noted in the left humerus. Cholecystectomy clips are noted in the right upper quadrant. IMPRESSION: Cardiomegaly with no acute cardiopulmonary abnormality. ACT 112: Negative or not required by law. Electronically signed by: Gareth Rosado M.D. 03/19/2022 5:[address] 03/19/22 16:20 CT head/brain wo con CLINICAL HISTORY: fall . Pain COMPARISON STUDY: No previous studies for comparison. CT DOSE: 884.08 mGy.cm TECHNIQUE: Standard CT of the Brain was performed without IV contrast. A dose lowering technique was utilized adhering to the principles of ALARA. FINDINGS: Extraaxial space: There is no evidence for subdural hematoma. There are no extra-axial fluid collections. Ventricles and cisterns: The ventricles are mildly dilated bilaterally. There is no evidence for midline shift or mass effect. Parenchyma: There is no subarachnoid or intraparenchymal hemorrhage. There is no evidence for an acute infarct or cerebral edema. There is mild cerebral cortical atrophy and decreased attenuation in the periventricular white matter representing remote small vessel disease. There are no gross mass lesions. Osseous structures: There is no evidence for an acute fracture. There is mild mucosal thickening of multiple ethmoid air cells bilaterally. The remaining visualized paranasal sinuses are clear. The mastoid air cells are clear bilaterally. Soft tissues: There is no evidence for focal soft tissue swelling. IMPRESSION: 1. No acute intracerebral pathology. 2. Cerebral cortical atrophy and remote small vessel disease. 3. Mild chronic ethmoid sinusitis. ACT 112: Negative or not required by law. Electronically signed by: Nicholas Manzanares M.D. 03/19/2022 4:38 PM Discharge Plan Visit Data Chief Complaint: Fall Stated Complaint: FALL ED Provider: Wood Sanford Discharge Problem: Closed hip fracture Forms Stand Alone Forms: [facility] Prescriptions Prescriptions: No Action metoprolol succinate [Toprol XL] 50 mg tablet extended release 24 hr 50 mg PO BID RF: 0 cyanocobalamin (vitamin B-12) 1,000 mcg Tablet 1,000 mcg PO QAM RF: 0 clopidogrel 75 mg tablet 75 mg PO QAM RF: 0 dapsone 25 mg tablet 25 mg PO QPM RF: 0 fluticasone propionate 50 mcg/actuation spray,suspension 2 spray Intranasal HS RF: 0 metformin 500 mg tablet extended release 24 hr 500 mg PO BID RF: 0 glipizide 10 mg tablet 10 mg PO DAILY RF: 0 tamsulosin [Flomax] 0.4 mg capsule 0.4 mg PO HS RF: 0 aspirin 81 mg Tablet,Delayed Release (Dr/Ec) 81 mg PO HS RF: 0 nitroglycerin [Nitrostat] 0.4 mg Tablet, Sublingual 1 dose Sublingual DIRECTED PRN (Reason: Angina) RF: 0 furosemide [Lasix] 20 mg Tablet 20 mg PO Q OTHER DAY RF: 0 potassium chloride 10 mEq Capsule, Extended Release 10 meq PO Q OTHER DAY RF: 0 dofetilide 250 mcg capsule 250 mcg PO Q12 RF: 0 buspirone 5 mg tablet 5 mg PO BID PRN (Reason: Anxiety) RF: 0 atorvastatin 20 mg Tablet 20 mg PO DAILY RF: 0 acetaminophen [Acetaminophen Extra Strength] 500 mg Tablet 1,000 mg PO Q8 PRN (Reason: Fever Or Pain) RF: 0 duloxetine 30 mg capsule,delayed release(DR/EC) 30 mg PO DAILY RF: 0 multivitamin Tablet 1 tab PO DAILY RF: 0 Tradjenta 5 mg tablet 5 mg PO DAILY RF: 0 betamethasone, augmented 0.05 % ointment 1 applic TOPICAL BID RF: 0 valsartan 80 mg tablet 40 mg PO BID 30 Days Qty: 30 RF: 0 Referrals Referrals: Rosa Brooks MD [Primary Care Provider] -
--- NOTE | 2022-03-19 16:40 | CT Scan Report ---
CT head/brain wo con CLINICAL HISTORY: fall . Pain COMPARISON STUDY: No previous studies for comparison. CT DOSE: 884.08 mGy.cm TECHNIQUE: Standard CT of the Brain was performed without IV contrast. A dose lowering technique was utilized adhering to the principles of ALARA. FINDINGS: Extraaxial space: There is no evidence for subdural hematoma. There are no extra-axial fluid collecti ons. Ventricles and cisterns: The ventricles are mildly dilated bilaterally. There is no evidence for midl ine shift or mass effect. Parenchyma: There is no subarachnoid or intraparenchymal hemorrhage. There is no evidence for an acut e infarct or cerebral edema. There is mild cerebral cortical atrophy and decreased attenuation in the periventricular white matter representing remote small vessel disease. There are no gross mass lesio ns. Osseous structures: There is no evidence for an acute fracture. There is mild mucosal thickening of m ultiple ethmoid air cells bilaterally. The remaining visualized paranasal sinuses are clear. The mast oid air cells are clear bilaterally. Soft tissues: There is no evidence for focal soft tissue swelling. IMPRESSION: 1. No acute intracerebral pathology. 2. Cerebral cortical atrophy and remote small vessel disease. 3. Mild chronic ethmoid sinusitis. ACT 112: Negative or not required by law. Electronically signed by: Nicholas Manzanares M.D. 03/19/2022 4:38 PM
[2022-03-19 16:51] LABS: Basophils # (auto) 0.02 K/uL (0-0.2); Basophils % (auto) 0.1 %; Eosinophils # (auto) 0.29 K/uL (0-0.5); Eosinophils % (auto) 1.8 %; Hemoglobin 14.6 g/dL (14.0-18.0); Immature Granulocytes # (auto) 0.09 K/uL (0.00-0.02); Immature Granulocytes % (auto) 0.5 %; Lymphocytes # (auto) 1.39 K/uL (1.2-3.4); Lymphocytes % (auto) 8.4 %; Mean Corpuscular Hemoglobin 30.8 pg (25-34); Mean Corpuscular Hgb Conc 35.6 g/dL (32-36); Mean Corpuscular Volume 86.5 fL (80-100); Mean Platelet Volume 10.4 fL (7.4-10.4); Monocytes # (auto) 0.62 K/uL (0.11-0.59); Monocytes % (auto) 3.8 %; Neutrophils # (auto) 14.09 K/uL (1.4-6.5); Neutrophils % (auto) 85.4 %; Platelet Count 238 K/uL (130-400); RDW Coefficient of Variation 12.2 % (11.5-14.5); RDW Standard Deviation 39.2 fL (36.4-46.3); Red Blood Count 4.74 M/uL (4.7-6.1)
[2022-03-19 17:03] LABS: Base Excess VBG -0.6 mEq/L; Oxygen Saturation VBG 83.7 %; pH VBG 7.36 (7.36-7.41)
[2022-03-19 17:12] LABS: Partial Thromboplastin Time 26.2 Seconds (21.0-31.0); Prothrombin Time 10.8 Seconds (9.0-12.0)
--- NOTE | 2022-03-19 17:18 | XRay Report ---
SINGLE VIEW CHEST CLINICAL HISTORY: Atypical chest pain. FINDINGS: An AP, portable, supine chest radiograph is compared to study dated 06/28/2021 and correlate d with chest CT dated 06/13/2021. The examination is degraded by portable technique and apical lordotic positioning. The heart is enlarged noting atherosclerotic calcification of the thoracic aorta. The p ulmonary vasculature is noncongested. Scarring/atelectasis is seen in the lung bases. No airspace con solidation or large pleural effusion is identified. No pneumothorax is seen. The skeletal structures are osteopenic. Posttraumatic deformity and postoperative change is noted in the left humerus. Cholec ystectomy clips are noted in the right upper quadrant. IMPRESSION: Cardiomegaly with no acute cardiopulmonary abnormality. ACT 112: Negative or not required by law. Electronically signed by: Gareth Rosado M.D. 03/19/2022 5:16 PM
--- NOTE | 2022-03-19 17:21 | XRay Report ---
SINGLE VIEW PELVIS; 2 VIEWS LEFT HIP; 2 VIEWS RIGHT HIP CLINICAL HISTORY: Fall. Left hip injury. FINDINGS: An AP supine view of the pelvis with AP and crosstable lateral views of the left hip as wel l as AP and frog-leg views of the right hip are obtained. Correlation is made with pelvic CT dated 06/13/2021. The skeletal structures are osteopenic. There is an impacted and comminuted intertrochanteric fracture of the left proximal femur. The fragments are mildly angulated and overlying soft tissue ed connie is noted. No additional acute fracture is seen involving the right hip or the bony pelvis. Modera te arthritic change and joint space narrowing is seen in both hips. There is mild degenerative sclero sis of the sacroiliac joints. Surgical clips project over the scrotum. Lumbosacral spondylosis is par tially imaged. IMPRESSION: Impacted and angulated intertrochanteric fracture of the left proximal femur as above. Electronically signed by: Gareth Rosado M.D. 03/19/2022 5:19 PM
[2022-03-19 17:26] LABS: Troponin I High Sensitivity 7.1 pg/ml (0-20)
[2022-03-19 17:51] LABS: Albumin Globulin Ratio 1.6 (0.9-2); Albumin Level 4.1 gm/dl (3.4-5.0); BUN Creatinine Ratio 9.3 (10-20); Bilirubin,Total 1.1 mg/dl (0.2-1.0); Calcium 8.6 mg/dl (8.5-10.1); Creatinine Clr Calc Pharmacy 65.1 ml/min; Est GFR (African American) 95.6 ml/min; Est GFR (Non-African American) 82.5 ml/min; Globulin 2.6 gm/dl (2.5-4.0); Potassium 3.9 mmol/L (3.5-5.1); Total Protein 6.7 gm/dl (6.0-8.3)
[2022-03-19] MEDS ORDERED: MoRPHine SULFATE 4 MG/ML 1 ML CARP\\VIAL IV STA (17:52)
[2022-03-19] MEDS ORDERED: ONDANSETRON INJ 2 MG/ML 2 ML VIAL ONE (18:06)
[2022-03-19] MEDS ORDERED: ONDANSETRON INJ 2 MG/ML 2 ML VIAL IV STA (18:17)
--- NOTE | 2022-03-19 18:39 | Orthopedic Consultation ---
Date of Service March 19, 2022 Assessment & Plan (1) Closed intertrochanteric fracture of left femur: Chart and radiographs reviewed. Spoke with emergency room physician and admitting physician teaching assistant. Patient seen and evaluated this morning. Patient expected to clear today for left hip intertrochanteric fracture fixation with long trochanteric fixation nail. 77-year-old male with medical comorbidities significant for CAD, A. fib with chronic antiplatelet therapy, Parkinson's, gait disturbance and multiple falls, admitted with a left intertrochanteric femur fracture after a fall today. Recommend surgical management with left long trochanteric fixation nail. -On-call to the OR today for fixation. NPO. -Bedrest and pain control, position leg to comfort. -No advantage to holding antiplatelet therapy at this point, should be well covered from DVT perspective with current therapy. Mechanical ppx. -Expect blood loss - TXA perioperatively. History of Present Illness Reason for Consultation: Left hip fracture Requesting Physician: . 77-year-old male with multiple medical comorbidities and history of frequent falls, community ambulator with walker, who lives in his own home alone, presents with inability weight-bear due to a fall near his truck yesterday. This resulted in left intertrochanteric femur fracture. He was admitted. No overnight complications. Allergies Allergy/AdvReac Type Severity Reaction Status Date / Time hydroxyzine Allergy Severe Anaphylaxis Verified 03/19/22 18:41 Gold Salts Allergy Intermediate hives Verified 03/19/22 18:41 losartan Allergy Intermediate hypotension Verified 03/19/22 18:41 triamcinolone Allergy Intermediate "pustules/r Verified 03/19/22 18:41 edness" Penicillins Allergy Mild RASH Verified 03/19/22 18:41 wheat Allergy Mild Rash Verified 03/19/22 18:41 Home Medications Medication Instructions Recorded Confirmed Type clopidogrel 75 mg tablet 75 mg PO QAM 08/27/18 03/19/22 History dapsone 25 mg tablet 25 mg PO QPM 08/27/18 03/19/22 History fluticasone propionate 50 2 spray INTRANASAL HS 08/27/18 03/19/22 History mcg/actuation nasal spray,suspension metformin 500 mg tablet,extended 1,000 mg PO BID 08/27/18 03/19/22 History release 24 hr aspirin 81 mg tablet,delayed 81 mg PO HS 09/25/18 03/19/22 History release nitroglycerin 0.4 mg sublingual 1 dose SUBLINGUAL DIRECTED PRN 09/25/1803/07 History tablet (Nitrostat) tamsulosin 0.4 mg capsule (Flomax) 0.4 mg PO HS 12/11/18 03/19/22 History furosemide 20 mg tablet (Lasix) 20 mg PO 2XWK 02/02/19 03/19/22 History potassium chloride 10 mEq 10 meq PO 2XWK 02/02/19 03/19/22 History capsule,extended release metoprolol succinate 50 mg 50 mg PO BID tab 09/10/19 03/19/22 History tablet,extended release 24 hr (Toprol XL) acetaminophen 500 mg tablet 1,000 mg PO Q8 PRN 11/22/20 03/19/22 History (Acetaminophen Extra Strength) buspirone 5 mg tablet 5 mg PO BID PRN 11/22/20 03/19/22 History dofetilide 250 mcg capsule 250 mcg PO Q12 11/22/20 03/19/22 History duloxetine 30 mg capsule,delayed 30 mg PO DAILY 11/22/20 03/19/22 History release multivitamin 1 tab PO DAILY 11/22/20 03/19/22 History linagliptin 5 mg tablet (Tradjenta) 5 mg PO DAILY 06/13/21 03/19/22 History betamethasone, augmented 0.05 % 1 applic TOPICAL BID 06/28/21 03/19/22 History topical ointment valsartan 80 mg tablet 40 mg PO BID 30 Days #30 tab 06/30/21 03/19/22 Rx atorvastatin 40 mg tablet 40 mg PO DAILY 03/19/22 03/19/22 History empagliflozin 10 mg tablet 10 mg PO DAILY 03/19/22 03/19/22 History (Jardiance) glipizide 5 mg tablet, extended 5 mg PO DAILY 03/19/22 03/19/22 History release 24 hr omeprazole 20 mg capsule,delayed 20 mg PO BID 03/19/22 03/19/22 History release Past Med/Surg History Medical History Autoimmune hemolytic anemia CAD (coronary artery disease) Chronic coronary heart disease patient with history of complex interventions with progression/in stent restenosis within 6 months of stopping clopidogrel after an LAD intervention plus new lesions in the same vessel and therefore he is on chronic dual anti-platelet therapy. 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 " On 07/25/11 18:09 Dianelys Mack wrote "with neuropathy " On 07/25/11 18:09 Dianelys Mack wrote "with neuropathy " Diverticular disease of colon GERD (gastroesophageal reflux disease) Hearing deficit History of adenomatous polyp of colon History of non-Hodgkin's lymphoma Hypertension Myocardial infarction 2013, 2016 Osteoarthritis Paroxysmal atrial fibrillation pulmonary vein isolation procedure 05/06/2018 with cryoablation Presence of Watchman left atrial appendage closure device Thrombocytopenia Surgical History History of arthroscopy of left shoulder History of bilateral cataract extraction History of cardiac cath 2013, 2016, 09/12/2018 History of cardiac radiofrequency ablation 04/2018 @ [facility] History of colonoscopy History of esophagogastroduodenoscopy (EGD) History of heart artery stent 2013 x1, 2016x1, 09/12/2018 x2(drug eluting stent @ [facility]) History of tonsillectomy and adenoidectomy History of tooth extraction wisdom teeth History of umbilical hernia repair Hx of exploratory laparotomy Presence of Watchman left atrial appendage [place] [facility] [place] post cholecystectomy "1994" Status post pericardiocentesis Status post vasectomy Family History Sister Family history of diabetes mellitus Family history of reaction to anesthesia difficulty waking Mother Family history of diabetes mellitus Social History Smoking Status: Former smoker Tobacco Type: Cigarettes packs per day: 1; Years Smoked: 30; Cigarettes Per Day: 1 PPD; Smoking End Date: 1997; Second Hand Exposure: No; Hx Alcohol Use: No Hx Substance Use: No Preferred Language: Sinhala Communication Ability: Effective Technology Integration Specialist Required: No Beliefs That Will Affect Care: None marital status: / Current Living Situation: Alone current occupation: Retired Other Information That Helps Us Care for You: No Feels Safe at Home: Yes Safety Concerns: Feels Safe At This Time Assistive Devices: Walker Assistive Devices Comment: uses walker at baseline independently Review of Systems All systems reviewed & are unremarkable except as noted in HPI & below. Physical Exam General: Appears comfortable this morning. Was alert and awake and oriented. LLE: Skin over the hip is without disturbance. Positive dorsiflexion/plantarflexion/EHL activity. Neurovascular intact distally. Focal tenderness about the hip. Constitutional well developed and well nourished; no acute distress and not intoxicated appearing ENMT external ear and nose normal, oropharynx normal Respiratory normal respiratory effort; no respiratory distress Cardiovascular Extremities: normal capillary refill; no edema Skin no rashes, warm and dry Psychiatric A+Ox3, euthymic affect Results & Data Results & Data Laboratory Results Laboratory Tests 06/29/21 03/19/22 03/19/22 07:48 16:28 16:28 WBC 16.50 H Hct 41.0 L Neut # (Auto) 14.09 H INR 1.0 VBG pH Sodium Glucose Hemoglobin A1c 6.6 H Albumin 03/19/22 03/19/22 16:28 16:46 WBC Hct Neut # (Auto) INR VBG pH 7.36 Sodium 129 L Glucose 188 H Hemoglobin A1c Albumin 4.1 Diagnostic Findings Radiographs of the bilateral hips and AP pelvis show an intertrochanteric fracture of the left hip, that is comminuted and breaches the lateral cortex. There is some extension to the lesser trochanter. PG Care Time/CCT Total # of Minutes Spent Total Time Spent with Patient: Total time spent is greater than 50% in coordination of care (as documented) at patient's floor/unit and/or counseling patient: Coding Level of Care Code 67013 Inpt Consult Level 4 (57 - DECISION FOR SURGERY) Diagnoses Closed intertrochanteric fracture of left femur S72.142A
--- NOTE | 2022-03-19 20:22 | History & Physical Report ---
Date of Service March 19, 2022 Assessment & Plan (1) Closed intertrochanteric fracture of left femur: Plan: Admit to [facility] with telemetry Patient presenting from home after suffering a mechanical fall while trying to get his walker out of his truck In the ED, found to have impacted and angulated intertrochanteric fracture of the left proximal femur EKG and CXR reviewed Will need to optimize blood pressure, otherwise patient will be considered at least moderate risk for surgery due to advanced age and multiple comorbidities Orthopedics consult (2) Hypertensive urgency: Plan: Presenting BP 206/106 Likely due to pain, improved after IV morphine to 167/90 Continue home doses of metoprolol, valsartan PRN labetalol (3) Leukocytosis: Plan: WBC 16.5K No obvious signs of infection at this time, awaiting UA Possibly reactive due to pain/fracture Monitor CBC (4) Hyponatremia: Plan: Na+ 129, seems to be chronic/at baseline Monitor BMP (5) CAD (coronary artery disease): Plan: Appears stable, no reports of chest pain, EKG without acute ST changes Per Ortho --okay to continue ASA and Plavix Continue statin, beta-anitha (6) History of atrial fibrillation: (7) Presence of Watchman left atrial appendage closure device: Plan: Rhythm controlled on Tikosyn, rate controlled on metoprolol (8) Diabetes mellitus type 2 in nonobese: Plan: Hgb A1c 6.3 01/2022 Hold oral agents and utilize NovoLog per protocol while hospitalized (9) Dermatitis herpetiformis: Plan: On dapsone (10) DVT prophylaxis: Plan: SCDs due to likely surgical intervention tomorrow History of Present Illness Chief Complaint: Fall, left hip pain Primary Care Provider: Rosa Brooks MD 77-year-old male with PMH DM type II, diabetic neuropathy, dyslipidemia, paroxysmal atrial fibrillation s/p watchman device, CAD, HTN, history of non- Hodgkin's lymphoma, dermatitis herpetiformis, and other problems listed below who presents to the ED for evaluation of fall and left hip pain. Patient reports that he was trying to get his walker out from his truck when he slipped and fell onto his left hip. Patient denies loss of consciousness or striking his head. Patient reports he otherwise has been feeling well recently. He continues to struggle with chronic gait instability. No episodes of chest pain or shortness of breath. Denies lightheadedness, dizziness, diaphoresis, syncopal events. No abdominal pain, nausea, vomiting, diarrhea. Denies any other recent illnesses, fevers, chills. No urinary symptoms. In the ED, patient is found to have impacted and angulated intertrochanteric fracture of the left proximal femur. Allergies Allergy/AdvReac Type Severity Reaction Status Date / Time hydroxyzine Allergy Severe Anaphylaxis Verified 03/19/22 18:41 Gold Salts Allergy Intermediate hives Verified 03/19/22 18:41 losartan Allergy Intermediate hypotension Verified 03/19/22 18:41 triamcinolone Allergy Intermediate "pustules/r Verified 03/19/22 18:41 edness" Penicillins Allergy Mild RASH Verified 03/19/22 18:41 wheat Allergy Mild Rash Verified 03/19/22 18:41 Home Medications Medication Instructions Recorded Confirmed Type clopidogrel 75 mg tablet 75 mg PO QAM 08/27/18 03/19/22 History dapsone 25 mg tablet 25 mg PO QPM 08/27/18 03/19/22 History fluticasone propionate 50 2 spray INTRANASAL HS 08/27/18 03/19/22 History mcg/actuation nasal spray,suspension metformin 500 mg tablet,extended 1,000 mg PO BID 08/27/18 03/19/22 History release 24 hr aspirin 81 mg tablet,delayed 81 mg PO HS 09/25/18 03/19/22 History release nitroglycerin 0.4 mg sublingual 1 dose SUBLINGUAL DIRECTED PRN 09/25/18 03/19/22 History tablet (Nitrostat) tamsulosin 0.4 mg capsule (Flomax) 0.4 mg PO HS 12/11/18 03/19/22 History furosemide 20 mg tablet (Lasix) 20 mg PO 2XWK 02/02/19 03/19/22 History potassium chloride 10 mEq 10 meq PO 2XWK 02/02/19 03/19/22 History capsule,extended release metoprolol succinate 50 mg 50 mg PO BID tab 09/10/19 03/19/22 History tablet,extended release 24 hr (Toprol XL) acetaminophen 500 mg tablet 1,000 mg PO Q8 PRN 11/22/20 03/19/22 History (Acetaminophen Extra Strength) buspirone 5 mg tablet 5 mg PO BID PRN 11/22/20 03/19/22 History dofetilide 250 mcg capsule 250 mcg PO Q12 11/22/20 03/19/22 History duloxetine 30 mg capsule,delayed 30 mg PO DAILY 11/22/20 03/19/22 History release multivitamin 1 tab PO DAILY 11/22/20 03/19/22 History linagliptin 5 mg tablet (Tradjenta) 5 mg PO DAILY 06/13/21 03/19/22 History betamethasone, augmented 0.05 % 1 applic TOPICAL BID 06/28/21 03/19/22 History topical ointment valsartan 80 mg tablet 40 mg PO BID 30 Days #30 tab 06/30/21 03/19/22 Rx atorvastatin 40 mg tablet 40 mg PO DAILY 03/19/22 03/19/22 History empagliflozin 10 mg tablet 10 mg PO DAILY 03/19/22 03/19/22 History (Jardiance) glipizide 5 mg tablet, extended 5 mg PO DAILY 03/19/22 03/19/22 History release 24 hr omeprazole 20 mg capsule,delayed 20 mg PO BID 03/19/22 03/19/22 History release Past Med/Surg History Medical History Autoimmune hemolytic anemia CAD (coronary artery disease) Chronic coronary heart disease patient with history of complex interventions with progression/in stent restenosis within 6 months of stopping clopidogrel after an LAD intervention plus new lesions in the same vessel and therefore he is on chronic dual anti-platelet therapy. 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 " On 07/25/11 18:09 Dianelys Mack wrote "with neuropathy " On 07/25/11 18:09 Dianelys Mack wrote "with neuropathy " Diverticular disease of colon GERD (gastroesophageal reflux disease) Hearing deficit History of adenomatous polyp of colon History of non-Hodgkin's lymphoma Hypertension Myocardial infarction 2013, 2016 Osteoarthritis Paroxysmal atrial fibrillation pulmonary vein isolation procedure 05/06/2018 with cryoablation Presence of Watchman left atrial appendage closure device Thrombocytopenia Surgical History History of arthroscopy of left shoulder History of bilateral cataract extraction History of cardiac cath 2013, 2016, 09/12/2018 History of cardiac radiofrequency ablation 04/2018 @ [facility] History of colonoscopy History of esophagogastroduodenoscopy (EGD) History of heart artery stent 2014 x1, 2017x1, 09/12/2018 x2(drug eluting stent @ [facility]) History of tonsillectomy and adenoidectomy History of tooth extraction wisdom teeth History of umbilical hernia repair Hx of exploratory laparotomy Presence of Watchman left atrial appendage closure device placed 11/27/18 @ [facility] [place] Status post cholecystectomy "1994" Status post pericardiocentesis Status post vasectomy Family History Sister Family history of diabetes mellitus Family history of reaction to anesthesia difficulty waking Mother Family history of diabetes mellitus Social History Smoking Status: Former smoker Tobacco Type: Cigarettes packs per day: 1; Years Smoked: 30; Cigarettes Per Day: 1 PPD; Smoking End Date: 1997; Second Hand Exposure: No; Hx Alcohol Use: No Hx Substance Use: No Preferred Language: Malawian Communication Ability: Effective Finishing Powder 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 Grissom's addendum for physical exam Results & Data Results & Data ([facility]) Vital Signs (Past 12 Hours) Vital Signs Temp Pulse Pulse Resp BP BP Pulse Ox 03/19/22 19:41 69 20 167/90 H 95 03/19/22 18:14 70 20 167/114 H 90 03/19/22 16:16 71 18 94 03/19/22 16:14 71 18 206/106 H 94 03/19/22 15:55 36.7 C 71 18 206/106 H 94 Laboratory Results Short CBC 03/19/22 03/19/22 Range/Units 16:28 16:28 WBC 16.50 H (4.8-10.8) K/uL Hgb 14.6 (14.0-18.0) g/dL Hct 41.0 L (42-52) % Plt Count 238 (130-400) K/uL Sodium 129 L (136-145) mmol/L BMP 03/19/22 16:28 Sodium 129 L Potassium 3.9 Chloride 95 L Carbon Dioxide 24 BUN 8 Creatinine 0.86 Glucose 188 H Calcium 8.6 Liver Function 03/19/22 Range/Units 16:28 Total Bilirubin 1.1 H (0.2-1.0) mg/dl AST 17 (13-39) U/L ALT 14 (7-52) U/L Alkaline Phosphatase 69 (34-104) U/L Albumin 4.1 (3.4-5.0) gm/dl Diagnostic Findings Hip/Pelvis X-Ray 03/19/22 16:15 SINGLE VIEW PELVIS; 2 VIEWS LEFT HIP; 2 VIEWS RIGHT HIP CLINICAL HISTORY: Fall. Left hip injury. FINDINGS: An AP supine view of the pelvis with AP and crosstable lateral views of the left hip as well as AP and frog-leg views of the right hip are obtained. Correlation is made with pelvic CT dated 06/13/2021. The skeletal structures are osteopenic. There is an impacted and comminuted intertrochanteric fracture of the left proximal femur. The fragments are mildly angulated and overlying soft tissue edema is noted. No additional acute fracture is seen involving the right hip or the bony pelvis. Moderate arthritic change and joint space narrowing is seen in both hips. There is mild degenerative sclerosis of the sacroiliac joints. Surgical clips project over the scrotum. Lumbosacral spondylosis is partially imaged. IMPRESSION: Impacted and angulated intertrochanteric fracture of the left proximal femur as above. Electronically signed by: Gareth Rosado M.D. 03/19/2022 5:19 PM Chest X-Ray 03/19/22 16:16 SINGLE VIEW CHEST CLINICAL HISTORY: Atypical chest pain. FINDINGS: An AP, portable, supine chest radiograph is compared to study dated 06/28/2021 and correlated with chest CT dated 06/13/2021. The examination is degraded by portable technique and apical lordotic positioning. The heart is enlarged noting atherosclerotic calcification of the thoracic aorta. The pulmonary vasculature is noncongested. Scarring/atelectasis is seen in the lung bases. No airspace consolidation or large pleural effusion is identified. No pneumothorax is seen. The skeletal structures are osteopenic. Posttraumatic deformity and postoperative change is noted in the left humerus. Cholecystectomy clips are noted in the right upper quadrant. IMPRESSION: Cardiomegaly with no acute cardiopulmonary abnormality. ACT 112: Negative or not required by law. Electronically signed by: Gareth Rosado M.D. 03/19/2022 5:[address] 03/19/22 16:20 CT head/brain wo con CLINICAL HISTORY: fall . Pain COMPARISON STUDY: No previous studies for comparison. CT DOSE: 884.08 mGy.cm TECHNIQUE: Standard CT of the Brain was performed without IV contrast. A dose lowering technique was utilized adhering to the principles of ALARA. FINDINGS: Extraaxial space: There is no evidence for subdural hematoma. There are no extra-axial fluid collections. Ventricles and cisterns: The ventricles are mildly dilated bilaterally. There is no evidence for midline shift or mass effect. Parenchyma: There is no subarachnoid or intraparenchymal hemorrhage. There is no evidence for an acute infarct or cerebral edema. There is mild cerebral cortical atrophy and decreased attenuation in the periventricular white matter representing remote small vessel disease. There are no gross mass lesions. Osseous structures: There is no evidence for an acute fracture. There is mild mucosal thickening of multiple ethmoid air cells bilaterally. The remaining visualized paranasal sinuses are clear. The mastoid air cells are clear bilaterally. Soft tissues: There is no evidence for focal soft tissue swelling. IMPRESSION: 1. No acute intracerebral pathology. 2. Cerebral cortical atrophy and remote small vessel disease. 3. Mild chronic ethmoid sinusitis. ACT 112: Negative or not required by law. Electronically signed by: Nicholas Manzanares M.D. 03/19/2022 4:38 PM Code Status & VTE Plan Code Status Patient is a DNR as per Dr. Grissom's discussion with him. VTE Prophylaxis Plan VTE Prophylaxis will be ordered: Yes Supervising Physician Co-Signing Physician Notes Patient is a 77-year-old male with history of diabetes mellitus, paroxysmal atrial fibrillation and other medical problems presents after history of a fall resulting in significant left hip pain and ambulatory dysfunction. Patient denies any loss of consciousness, head trauma. Please review HPI for complete details of presentation. Patient was found to be in hypertensive urgency while in ED likely situational secondary to pain. Blood work suggestive of sodium 129, WBC count 16.5, EKG suggestive of prolonged QTC. Hip x-ray suggestive of impacted and angulated intertrochanteric fracture of the left proximal femur. Physical Exam: Vitals signs as noted above General Appearance:Moderately built and nourished, no apparent distress Head: normocephalic, Atraumatic Eyes: normal inspection, EOMI Neck: supple, Trachea midline Respiratory/Chest: Normal breath sounds, CTA, No accessory muscle use Cardiovascular: S1, S2, No murmur Abdomen/GI:Soft, Non tender, Bowel sounds present Extremities/Musculoskeletal:normal inspection, Trace edema, Left UR abrasion, Left hip tender, decreased ROM Neurologic/Psych:AAOX3, grossly no focal neurological deficits Skin: normal color, warm Closed intertrochanteric fracture of the left femur Secondary to fall Pain control, fall precautions PT OT when appropriate Orthopedics consulted N.p.o. after midnight Hypertensive urgency Continue home medications Add IV labetalol as needed Hyponatremia Likely chronic I personally reviewed the record. Patient is interviewed and examined at bedside. Patient's care is coordinated with Vanessa Jacobs [facility]AST[employer] [facility]PER. Please refer to the documentation above for details of patient's presentation and for discussion of other issues.
[2022-03-19 21:03] LABS: Appearance Urine Clear (Clear); Bilirubin Urine Negative (Negative); Blood Urine Negative (Negative); Color Urine Yellow; Glucose Urine UA 2+ (Negative); Ketones Urine 2+ (Negative); Leukocyte Esterase Urine Negative (Negative); Nitrite Urine Negative (Negative); Protein Urine Negative (Negative); Specific Gravity Urine 1.013 (1.000-1.030); Urobilinogen Urine Negative (Negative)
[2022-03-19] MEDS ORDERED: CARBOHYDRATES FOR HYPOGLYCEMIA PO PRN (21:21)
[2022-03-19] MEDS ORDERED: MAGNESIUM HYDROXIDE SUSP 30 ML UDC PO PRN (21:21)
[2022-03-19] MEDS ORDERED: PROMETHAZINE HCL 12.5 MG in SODIUM CHLORIDE 0.9% 50 ML IV PRN (21:21)
[2022-03-19] MEDS ORDERED: NALOXONE HCL 0.4 MG/1 ML VIAL/CARP IV PRN (21:21)
[2022-03-19] MEDS ORDERED: GLUCOSE 10 TABS/TUBE PO PRN (21:21)
[2022-03-19] MEDS ORDERED: GLUCOSE 40% GEL 15 GM TUBE PO PRN (21:21)
[2022-03-19] MEDS ORDERED: bisacodyL 10 MG SUPP PR PRN (21:21)
[2022-03-19] MEDS ORDERED: HYDROmorphone INJ 0.5 MG/0.5 ML SYR IV PRN ×2 (21:21)
[2022-03-19] MEDS ORDERED: DEXTROSE 50% 50 ML SYRINGE IV PRN (21:21)
[2022-03-19] MEDS ORDERED: GLUCAGON FOR INJ 1 MG VIAL SQ PRN (21:21)
[2022-03-19] MEDS ORDERED: INSULIN ASPART PER UNIT SC SCH (21:21)
[2022-03-19] MEDS ORDERED: LABETALOL HCL IV 5 MG/ML 20ML IV PRN (21:21)
[2022-03-19] MEDS: oxyCODONE HCL IR 5 MG TAB (IMMEDIATE RELEASE) PO PRN (22:15)
[2022-03-19] MEDS: DAPSONE 25 MG TAB PO SCH (22:22)
[2022-03-19] MEDS: DOCUSATE SODIUM/SENNA 50/8.6MG TAB PO SCH (22:23)
[2022-03-19] MEDS: DOFETILIDE 125 MCG CAPSULE PO SCH (22:25)
[2022-03-19] MEDS: METOPROLOL SUCC 50MG EXT REL TAB PO SCH (22:26)
[2022-03-19] MEDS: VALSARTAN 80 MG TAB PO SCH (22:26)
[2022-03-19] MEDS: TAMSULOSIN HCL 0.4 MG CAP PO SCH (22:26)
[2022-03-19] MEDS: ASPIRIN 81 MG ECTAB PO SCH (22:58)
[2022-03-20] MEDS ORDERED: Nursing to Pharmacy Communication SCH ×2 (00:30→16:45)
[2022-03-20] MEDS: INSULIN ASPART PER UNIT SC SCH ×4 (05:32→21:38)
[2022-03-20] MEDS: oxyCODONE HCL IR 5 MG TAB (IMMEDIATE RELEASE) PO PRN (05:32)
[2022-03-20] MEDS ORDERED: ceFAZolin 2000MG 2,000 MG/15 ML SYR IV SCH (06:00)
[2022-03-20 06:56] LABS: Hematocrit (blood only) 39.4 % (42-52); Hemoglobin 13.7 g/dL (14.0-18.0); Mean Corpuscular Hemoglobin 30.4 pg (25-34); Mean Corpuscular Hgb Conc 34.8 g/dL (32-36); Mean Corpuscular Volume 87.4 fL (80-100); Mean Platelet Volume 10.4 fL (7.4-10.4); Platelet Count 232 K/uL (130-400); RDW Coefficient of Variation 12.3 % (11.5-14.5); RDW Standard Deviation 39.7 fL (36.4-46.3); Red Blood Count 4.51 M/uL (4.7-6.1); White Blood Count 11.07 K/uL (4.8-10.8)
[2022-03-20 07:37] LABS: BUN Creatinine Ratio 12.1 (10-20); Calcium 8.4 mg/dl (8.5-10.1); Creatinine Clr Calc Pharmacy 52.3 ml/min; Est GFR (African American) 76.1 ml/min; Est GFR (Non-African American) 65.7 ml/min
[2022-03-20] MEDS: DOFETILIDE 125 MCG CAPSULE PO SCH ×2 (09:11→20:07)
[2022-03-20] MEDS: DULoxetine HCL 30 MG CAP PO SCH (09:12)
[2022-03-20] MEDS: CLOPIDOGREL BISULFATE 75 MG TAB PO SCH (09:12)
[2022-03-20] MEDS: METOPROLOL SUCC 50MG EXT REL TAB PO SCH ×2 (09:12→20:06)
[2022-03-20] MEDS: VALSARTAN 80 MG TAB PO SCH ×2 (09:12→20:05)
[2022-03-20] MEDS: PANTOprazole 40 MG TAB PO SCH ×2 (09:12→20:06)
[2022-03-20] MEDS: ATORVASTATIN 40 MG TAB PO SCH (09:12)
--- NOTE | 2022-03-20 09:24 | Anesthesiology Consultation ---
Date of Service March 20, 2022 Assessment & Plan (1) Encounter for pre-operative examination: Chart Review Chart Review: Acceptable Risk for Surgery and Patient NOT seen in Pre Admission Testing Consults Requested none Additional Notes Of note patient on DAPT History Surgery Operation Date: 03/20/22 08:00 Proposed Procedures p Left Troch Nail - Paras Barr MD Height/Weight Height: 5 ft 7 in Weight: 72.8 kg Allergies Allergy/AdvReac Type Severity Reaction Status Date / Time hydroxyzine Allergy Severe Anaphylaxis Verified 03/19/22 18:41 Gold Salts Allergy Intermediate hives Verified 03/19/22 18:41 losartan Allergy Intermediate hypotension Verified 03/19/22 18:41 triamcinolone Allergy Intermediate "pustules/r Verified 03/19/22 18:41 edness" Penicillins Allergy Mild RASH Verified 03/19/22 18:41 wheat Allergy Mild Rash Verified 03/19/22 18:41 Medications Home Medications Medication Instructions Recorded Confirmed Last Taken clopidogrel 75 mg tablet 75 mg PO QAM 08/27/18 03/19/22 03/19/22 dapsone 25 mg tablet 25 mg PO QPM 08/27/18 03/19/22 03/18/22 fluticasone propionate 50 2 spray INTRANASAL HS 08/27/18 03/19/22 03/18/22 mcg/actuation nasal spray,suspension metformin 500 mg tablet,extended 1,000 mg PO BID 08/27/18 03/19/22 03/19/22 08:00 release 24 hr aspirin 81 mg tablet,delayed 81 mg PO HS 09/25/18 03/19/22 03/18/22 release nitroglycerin 0.4 mg sublingual 1 dose SUBLINGUAL DIRECTED PRN 09/25/18 03/19/22 Unknown tablet (Nitrostat) tamsulosin 0.4 mg capsule (Flomax) 0.4 mg PO HS 12/11/18 03/19/22 03/18/22 furosemide 20 mg tablet (Lasix) 20 mg PO 2XWK 02/02/19 03/19/22 06/28/21 potassium chloride 10 mEq 10 meq PO 2XWK 02/02/19 03/19/22 06/28/21 capsule,extended release metoprolol succinate 50 mg 50 mg PO BID tab 09/10/19 03/19/22 03/19/22 08:00 tablet,extended release 24 hr (Toprol XL) acetaminophen 500 mg tablet 1,000 mg PO Q8 PRN 11/22/20 03/19/22 Unknown (Acetaminophen Extra Strength) buspirone 5 mg tablet 5 mg PO BID PRN 11/22/20 03/19/22 Unknown dofetilide 250 mcg capsule 250 mcg PO Q12 11/22/20 03/19/22 03/19/22 08:00 duloxetine 30 mg capsule,delayed 30 mg PO DAILY 11/22/20 03/19/22 03/19/22 release multivitamin 1 tab PO DAILY 11/22/20 03/19/22 03/19/22 linagliptin 5 mg tablet (Tradjenta) 5 mg PO DAILY 06/13/21 03/19/22 03/19/22 betamethasone, augmented 0.05 % 1 applic TOPICAL BID 06/28/21 03/19/22 03/19/22 08:00 topical ointment valsartan 80 mg tablet 40 mg PO BID 30 Days #30 tab 06/30/21 03/19/22 03/19/22 08:00 atorvastatin 40 mg tablet 40 mg PO DAILY 03/19/22 03/19/22 Unknown empagliflozin 10 mg tablet 10 mg PO DAILY 03/19/22 03/19/22 Unknown (Jardiance) glipizide 5 mg tablet, extended 5 mg PO DAILY 03/19/22 03/19/22 Unknown release 24 hr omeprazole 20 mg capsule,delayed 20 mg PO BID 03/19/22 03/19/22 Unknown release Active Medications Generic Name Dose Route Start Last Admin Trade Name Magy PRN Reason Stop Dose Admin Aspirin 81 mg 03/19/22 21:21 03/19/22 22:58 Aspirin 81 Mg Ectab PO 04/18/22 21:20 81 mg HS ALBA Administration Atorvastatin Calcium 40 mg 03/20/22 09:00 03/20/22 09:12 Atorvastatin 40 Mg Tab PO 04/19/22 08:59 40 mg DAILY ALBA Administration Clopidogrel Bisulfate 75 mg 03/20/22 09:00 03/20/22 09:12 Clopidogrel Bisulfate 75 Mg Tab PO 04/19/22 08:59 Not Given QAM ALBA Dapsone 25 mg 03/19/22 21:21 03/19/22 22:22 Dapsone 25 Mg Tab PO 04/18/22 21:20 25 mg QPM ALBA Administration Dofetilide 250 mcg 03/19/22 21:21 03/20/22 09:11 Dofetilide 125 Mcg Capsule PO 04/18/22 21:20 250 mcg Q12 ALBA Administration Duloxetine HCl 30 mg 03/20/22 09:00 03/20/22 09:12 Duloxetine Hcl 30 Mg Cap PO 04/19/22 08:59 30 mg DAILY ALBA Administration Promethazine HCl 12.5 mg/ 50.5 mls @ 202 mls/hr 03/19/22 21:21 03/19/22 22:42 Sodium Chloride IV 04/18/22 21:20 Infused Q6H PRN Infusion Nausea And Vomiting Insulin Aspart 0 units 03/20/22 06:00 03/20/22 05:32 Insulin Aspart Per Unit SC 04/19/22 05:59 2 units Q6 ALBA Administration Metoprolol Succinate 50 mg 03/19/22 21:21 03/20/22 09:12 Metoprolol Succ 50mg Ext Rel Tab PO 04/18/22 21:20 50 mg BID ALBA Administration Oxycodone HCl 10 mg 03/19/22 21:21 03/20/22 05:32 Oxycodone Hcl Ir 5 Mg Tab (Immediate Release) PO 04/02/22 21:20 10 mg Q6H PRN Administration SEVERE Pain (7,8,9,10) Pantoprazole Sodium 40 mg 03/20/22 09:00 03/20/22 09:12 Pantoprazole 40 Mg Tab PO 04/19/22 08:59 40 mg BID ALBA Administration Senna/Docusate Sodium 2 tab 03/19/22 21:21 03/19/22 22:23 Docusate Sodium/Senna 50/8.6mg Tab PO 04/18/22 21:20 2 tab HS ALBA Administration Tamsulosin HCl 0.4 mg 03/19/22 21:21 03/19/22 22:26 Tamsulosin Hcl 0.4 Mg Cap PO 04/18/22 21:20 0.4 mg HS ALBA Administration Valsartan 40 mg 03/19/22 21:21 03/20/22 09:12 Valsartan 80 Mg Tab PO 04/18/22 21:20 40 mg BID ALBA Administration NPO Date Last Intake of Fluids: 03/20/22 Time Last Intake of Fluids: 22:58 Last Intake of Fluids Comment: sip of water with meds Date Last Intake of Solids: 03/20/22 Past Medical History Medical History Autoimmune hemolytic anemia CAD (coronary artery disease) Chronic coronary heart disease patient with history of complex interventions with progression/in stent restenosis within 6 months of stopping clopidogrel after an LAD intervention plus new lesions in the same vessel and therefore he is on chronic dual anti-platelet therapy. 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 " On 07/25/11 18:09 Dianelys Mack wrote "with neuropathy " On 07/25/11 18:09 Dianelys Mack wrote "with neuropathy " Diverticular disease of colon GERD (gastroesophageal reflux disease) Hearing deficit History of adenomatous polyp of colon History of non-Hodgkin's lymphoma Hypertension Myocardial infarction 2013, 2016 Osteoarthritis Paroxysmal atrial fibrillation pulmonary vein isolation procedure 05/06/2018 with cryoablation Presence of Watchman left atrial appendage closure device Thrombocytopenia Past Family History Family History Sister Family history of diabetes mellitus Family history of reaction to anesthesia difficulty waking Mother Family history of diabetes mellitus Past Surgical History Surgical History History of arthroscopy of left shoulder History of bilateral cataract extraction History of cardiac cath 2013, 2016, 09/12/2018 History of cardiac radiofrequency ablation 04/2018 @ [facility] History of colonoscopy History of esophagogastroduodenoscopy (EGD) History of heart artery stent 2013 x1, 2017x1, 09/12/2018 x2(drug eluting stent @ [facility]) History of tonsillectomy and adenoidectomy History of tooth extraction wisdom teeth History of umbilical hernia repair Hx of exploratory laparotomy Presence of Watchman left atrial appendage closure device placed 11/27/18 @ [facility] Status post cholecystectomy "1994" Status post pericardiocentesis Status post vasectomy Social History Smoking Status: Former smoker tobacco type: cigarettes Smoking cigarettes per day: 1 PPD Smoking End Date: 1997 Hx Alcohol Use: No Hx Substance Use: No substance use type: does not use Physical Exam Vital Signs Last Vital Signs Temp 98.6 F 03/20/22 06:44 Pulse 61 03/20/22 07:35 Resp 18 03/20/22 06:44 BP 137/78 03/20/22 06:44 Pulse Ox 96 03/20/22 06:44 Testing Laboratory Results 03/20/22 05:53 03/20/22 05:53 PT 10.8 Seconds (9.0-12.0) 03/19/22 16:28 INR 1.0 (0.9-1.1) 03/19/22 16: APTT 26.2 Seconds (21.0-31.0) 03/19/22 16:28 Urine Color Yellow 03/19/22 20:51 Urine Appearance Clear (Clear) 03/19/22 20:51 Urine pH 8.0 (4.5-7.5) H 03/19/22 20:51 Ur Specific [place] 1.013 (1.000-1.030) 03/19/22 20:51 Urine Protein Negative (Negative) 03/19/22 20:51 Urine Glucose (UA) 2+ (Negative) H 03/19/22 20:51 Urine Ketones 2+ (Negative) H 03/19/22 20:51 Urine Nitrite Negative (Negative) 03/19/22 20:51 Ur Leukocyte Esterase Negative (Negative) 03/19/22 20:51 Blood Type A Positive 03/19/22 21:37 Antibody Screen NEGATIVE 03/19/22 21:37 03/20/22 03/20/22 03/19/22 07:33 05:22 23:53 POC Glucose 148 H 180 H 197 H Electrocardiogram Date: 03/19/22 Findings: + NSR @ LAD, porolonged QT, nonsepcific ST abnormality Echocardiogram Date: 06/29/21 EF: 55-60 Valvular Disease: + no significant valvular disease
[2022-03-20] MEDS: ACETAMINOPHEN 325 MG TAB PO PRN ×2 (09:33→21:38)
[2022-03-20] MEDS ORDERED: SODIUM CHLORIDE 0.9% 1000ML 1,000 ML IV SCH (09:45)
[2022-03-20] MEDS ORDERED: BUPIVACAINE/EPINEPHRINE 0.25% 1:200,000 30 ML VIAL ONE (12:31)
[2022-03-20] MEDS ORDERED: LIDOCAINE 2% 2 ML VIAL/AMP(20MG/ML) INFIL ONE (12:32)
[2022-03-20] MEDS ORDERED: fentaNYL citrate 100 MCG/2 ML VIAL ONE (12:32)
[2022-03-20] MEDS ORDERED: PROPOFOL IV EMULSION 10 MG/ML 20 ML VIAL IV ONE (12:32)
[2022-03-20] MEDS ORDERED: TRANEXAMIC ACID / 0.7% NACL 1000MG/100ML BAG IV ONE (13:05)
--- NOTE | 2022-03-20 13:10 | History & Physical Bridge Note ---
Date of Service March 20, 2022 History & Physical Bridge Note I have examined the patient, reviewed the History & Physical and in the interval since the performance of the History & Physical I have noted the following changes of clinical significance: no changes noted. Discussed hip fractures and recommended surgery with his daughter, Sharita, prior to surgery. She affirmed that he makes his own medical decisions. After discussion of purpose, risks, benefits, and expected outcomes, Sharita stated that she wanted to proceed with surgery, as well. She is reachable to assist with disposition - she has a correction facility that she would like to have considered for his next level of care, if appropriate.
[2022-03-20] MEDS ORDERED: ePHEDrine sulfate 50 MG/ML AMP IV PRN (14:26)
[2022-03-20] MEDS ORDERED: ONDANSETRON INJ 2 MG/ML 2 ML VIAL IV PRN (14:26)
[2022-03-20] MEDS ORDERED: fentaNYL citrate 100 MCG/2 ML VIAL IV PRN (14:26)
[2022-03-20] MEDS ORDERED: ATROPINE SULFATE 0.1 MG/ML 10ML SYR IV PRN (14:26)
[2022-03-20] MEDS ORDERED: ROCURONIUM BROMIDE 10 MG/ML 5 ML VIAL IV ONE (14:32)
[2022-03-20] MEDS ORDERED: ePHEDrine sulfate 50 MG/ML SYR ONE (14:32)
[2022-03-20] MEDS ORDERED: PHENYLEPHRINE 100MCG/ML 5ML SYR ONE (14:32)
[2022-03-20] MEDS ORDERED: GLYCOPYRROLATE 0.2 MG/ML VIAL ONE (14:36)
[2022-03-20] MEDS ORDERED: NEOSTIGMINE METHYLSULFATE 1 MG/ML 10ML VIAL ONE (14:36)
--- NOTE | 2022-03-20 14:50 | Fluoroscopy Report ---
FL hip LT 2-3V CLINICAL HISTORY: LT TROCH NAIL COMPARISON STUDY: Pelvis and hip radiographs March 19, 2022. FLUOROSCOPY TIME: 1 minute and 45 seconds. FLUOROSCOPIC IMAGES: 4 FINDINGS: Fluoroscopy was provided during internal fixation of the intertrochanteric fracture of the left femur with trochanteric nail and interlocking pin. Fracture alignment has markedly improved and appears near anatomic. Hardware is intact. There is a distal screw. IMPRESSION: Fluoroscopy provided during internal fixation of the intertrochanteric fracture of the l eft femur. ACT 112: Negative or not required by law. Electronically signed by: Len Simons M.D. 03/20/2022 2:49 PM
--- NOTE | 2022-03-20 15:14 | Operative Report ---
PG Post Operative Report Pre & Post Diagnosis Operation Date: 03/20/22 08:00 Pre-Op Diagnosis: LEFT INTERTROCHANTERIC FEMUR FRACTURE Post-Op Diagnosis: LEFT INTERTROCHANTERIC FEMUR FRACTURE I identified the patient and participated in the time-out.: Yes Procedure Operation Date: 03/20/22 08:00 Actual Procedures p Left intratrochanteric hip fracture closed reduction and long cephalomedullary nail fixation (Left) - Paras Brar MD Surgeon Paras Barr MD Dielectric Tester William Telles PA-C Estimated Blood Loss 150 Findings See Below Comminuted intertrochanteric fracture with acceptable reduction. All Synthes implants: 11 mm/130 degree titanium cannulated trochanteric fixation nail of 380 mm length. 11.0 mm titanium helical blade of 90 mm length. 5.0 mm distal interlock screw measuring 50 mm. Specimens none Anesthesia Type MAC Spinal Regional Complications none Disposition Accompanied Patient To Recovery: No Disposition: Surgical ICU Indications 77-year-old male sustained a fall onto pavement resulting immediate pain in his left hip and inability to weight-bear. Emergency room work-up revealed an intratrochanteric left hip fracture. He had a history of multiple falls. I discussed the diagnosis, prognosis and treatment options for the left intratrochanteric hip fracture and I recommended surgical stabilization with a long trochanteric fixation nail. This was discussed with the patient and his daughter. Both were in agreement to proceed, after discussion of the risks and benefits. Informed consent was obtained in the preoperative area. Description of Procedure On the day of surgery should be was greeted in the preoperative holding area and the informed consent was reviewed and confirmed. The surgical site was then identified by the patient and signed by myself. The patient was taken to the operating placed by the OR table and anesthesia was induced. The patient is then positioned on the fracture table. All shahla prominences were well padded. The operative foot was placed in the fracture boot with abundant padding. The well leg was secured. We then positioned the lower extremities in a scissor fashion with a non-op leg flexed down to allow visualization with fluoroscopy which was confirmed before we prepped and draped. Surgical timeout was called and verified by all present. Antibiotics were infused, and equipment was available and functional. The procedure was initiated with a closed reduction maneuvers. Gentle in-line traction pulled the fracture out to length. The limb was then internally rotated to reduce the proximal femur. Flexion and adduction were used to adjust the reduction and allow access to the greater trochanter. We had adequate reduction prior to prepping and draping. The leg was then prepped and draped in usual sterile fashion. Surgical timeout was reconfirmed. We initiated the surgical internal fixation portion with finding the start point with the tip of the greater trochanter. Fluoroscopic guidance was used and a small poke hole was established. The start point was confirmed on fluoroscopy in AP and lateral planes and the pin was advanced using a mallet. An incision was made about the pin to allow access for the reamers. The pin was then advanced past the lesser trochanter, and its position was confirmed using AP and lateral fluoroscopy. Using the protective sleeve, the opening reamer was advanced under power with fluoroscopic guidance over the guidepin. The reduction wire was then advanced down the distal femur to the level of the superior pole of the patella. Measurement was taken from the tip of the trochanter down to the end of the guidewire, and the 380 was selected. Given the size of his canal on radiographs, I opted to pes a single 12.5 mm reamer for our stocked 11 mm long nail. An 11 mm nail was loaded onto the jig and advanced manually down the canal, while ensuring maintenance of the reduction on fluoroscopy. We then tapped it down into place until we achieve the good position for our cephalo-medullary screw. The cannula was placed on the jig to allow positioning of the cephalo-medullary screw. The skin incision was made in the appropriate spot. The jig cannulas were then placed against the lateral cortex. The cephalo-medullary screw guidepin was advanced towards the femoral head. The center-center position was confirmed on fluoroscopy in AP and lateral planes. The length of the screw was measured off the guide. The helical blade screw was then opened on the back table and prepared on the screwdriver. The lateral cortical opening drill, followed by the triple drill reamer for the helical blade was advanced under fluoroscopic guidance. The helical blade was advanced over the guidepin to appropriate position. The helical blade was locked in rotation and then the traction was taken off. Fluoroscopy confirmed maintenance of reduction and adequate position of the implant. The compression sleeve was then advanced against the lateral femur to improve the trochanteric-shaft reduction and compress the intertrochanteric region fracture. Attention was then directed distally to perform the interlock screws in using perfect rampart technique. All traction was taken off to allow the fracture to further reduce along the nail. 1 interlock screw was placed with a 5 mm diameter. The length was measured using a depth gauge, with fluoroscopic guidance. This completed the fixation. This completed the fixation of the fracture. Fluoroscopy was used in both AP an d lateral planes to evaluate the entirety of the fracture and implant. Reduction and implant positions were acceptable. The wounds were then thoroughly irrigated with bulb syringe and normal saline. The deep fascial layer was approximated with 0 Vicryl suture. The dermal layer was approximated using 2-0 Vicryl suture. The final skin closure was completed with ciaran. Wounds were dressed with sterile Xeroform, sterile gauze, and foam tape over ABDs. The patient tolerated procedure well, awoke from anesthesia without complication, was extubated in the operating room, and transferred to the PACU in stable condition. Disposition: The patient be weightbearing as tolerated. I recommended continuation of his chronic dual agent antiplatelet therapy. In addition he should have mechanical prophylaxis consisting of SCDs and DARÍO hose. 24 hours of antibiotic prophylaxis should be continued. Physician pediatric dental assistant attestation: William Telles PA-C was present and scrubbed for the duration of the case. He was essential to prepping/draping, patient positioning, retraction, and assistance with wound closure. I attest to the content of the Intraoperative Record and any orders documented therein. Any exceptions are noted below.
--- NOTE | 2022-03-20 15:58 | Anesthesiology Progress Note ---
Date of Service March 20, 2022 Anesthesia Post Procedure Vital Signs Vital Signs: Temp Pulse Pulse Pulse Resp BP BP 03/20/22 15:50 36.7 C 66 18 135/72 03/20/22 15:40 36.7 C 67 18 133/70 03/20/22 15:30 68 18 137/64 03/20/22 15:20 69 18 132/62 03/20/22 15:10 70 18 133/66 03/20/22 15:01 36.8 C 74 18 164/63 H 03/20/22 12:43 03/20/22 12:38 36.8 C 65 16 137/75 03/20/22 11:09 37.0 C 60 18 124/69 03/20/22 07:35 61 03/20/22 06:44 37.0 C 69 18 137/78 03/20/22 03:38 36.4 C L 68 18 165/92 H 162/95 H 03/19/22 23:00 162/84 H 03/19/22 22:26 69 03/19/22 22:03 186/100 H 03/19/22 21:16 72 03/19/22 21:06 36.9 C 76 20 191/77 H 03/19/22 19:41 69 20 167/90 H 03/19/22 18:14 70 20 167/114 H 03/19/22 16:16 71 18 03/19/22 16:14 71 18 206/106 H Pulse Ox 03/20/22 15:50 94 03/20/22 15:40 94 03/20/22 15:30 93 03/20/22 15:20 94 03/20/22 15:10 95 03/20/22 15:01 97 03/20/22 12:43 92 03/20/22 12:38 89 L 03/20/22 11:09 93 03/20/22 07:35 03/20/22 06:44 96 03/20/22 03:38 97 03/19/22 23:00 03/19/22 22:26 03/19/22 22:03 03/19/22 21:16 03/19/22 21:06 97 03/19/22 19:41 95 03/19/22 18:14 90 03/19/22 16:16 94 06/13/22 16:14 94 Pain Intensity Left Hip: Pain Intensity: 3 Transfer of Care Handoff Completed per policy Notes Mental Status: alert / awake / arousable Patient Amnestic to Procedure: Yes Nausea / Vomiting: adequately controlled Pain: adequately controlled Airway Patency, RR, SpO2: stable & adequate BP & HR: stable & adequate Hydration State: stable & adequate Anesthetic Complications: no major complications apparent
--- NOTE | 2022-03-20 16:22 | Hospitalist Progress Note ---
Date of Service March 20, 2022 Assessment & Plan (1) Closed intertrochanteric fracture of left femur: Plan: Patient presents with hip pain after a mechanical fall. Closed intertrochanteric fracture of the left femur Hip X ray:Impacted and angulated intertrochanteric fracture of the left proximal femur as above. S/P Left intratrochanteric hip fracture closed reduction and long cephalomedullary nail fixation (Left)by on 03/20/22 Fall precautions Incentive spirometry Pin control PT/OT when appropriate Appreciate Orthopedics Input Leukocytosis likely reactive (2) Hypertensive urgency: Plan: Likely situational due to pain Continue metoprolol, valsartan IV labetalol PRN (3) Leukocytosis: Plan: No obvious signs of infection Possibly reactive Monitor CBC (4) Hyponatremia: Plan: Chronic Hyponatremia Sodium 129>>127 Check urine sodium, osmolality, serum osmolality Monitor sodium levels Gentle IV fluids (5) CAD (coronary artery disease): Plan: Stable Continue ASA, Plavix, statin, Metoprolol (6) History of atrial fibrillation: (7) Presence of Watchman left atrial appendage closure device: Plan: Rhythm controlled on Tikosyn, rate controlled on metoprolol Monitor (8) Diabetes mellitus type 2 in nonobese: Plan: Hgb A1c 6.3 01/2022 Hold oral agents Utilize NovoLog per protocol while hospitalized (9) Dermatitis herpetiformis: Plan: On Dapsone (10) DVT prophylaxis: Plan: SCDs Re: Surgery Admission and Anticipated Discharge Date Admission Date: March 19, 2022 Subjective Patient is seen and examined at bedside Hip pain is controlled Lying in bed comfortably Denies any chest pain, shortness of breath, dizziness, nausea, abdominal pain Offers no other complaints Planned for surgery today Review of Systems Review of Systems: All systems reviewed & are unremarkable except as noted in Subjective Physical Exam Physical Exam: Physical Exam: Vitals signs as noted above General Appearance:Moderately built and nourished, no apparent distress Head: normocephalic, Atraumatic Eyes: normal inspection, EOMI Neck: supple, Trachea midline Respiratory/Chest: Normal breath sounds, CTA, No accessory muscle use Cardiovascular: S1, S2, No murmur Abdomen/GI:Soft, Non tender, Bowel sounds present Extremities/Musculoskeletal:normal inspection, Trace edema, Left UR abrasion, Left hip tender Neurologic/Psych:AAOX3, grossly no focal neurological deficits Skin: normal color, warm Results & Data Results & Data ([facility]) Vital Signs (Past 12 Hours) Vital Signs Temp Pulse Pulse Pulse Resp BP Pulse Ox 03/20/22 16:00 36.7 C 68 11 L 133/68 93 03/20/22 15:50 36.7 C 66 18 135/72 94 03/20/22 15:40 36.7 C 67 18 133/70 94 03/20/22 15:30 68 18 137/64 93 03/20/22 15:20 69 18 132/62 94 03/20/22 15:10 70 18 133/66 95 03/20/22 15:01 36.8 C 74 18 164/63 H 97 03/20/22 12:43 92 03/20/22 12:38 36.8 C 65 16 137/75 89 L 03/20/22 11:09 37.0 C 60 18 124/69 93 03/20/22 07:35 61 03/20/22 06:44 37.0 C 69 18 137/78 96 Laboratory Results Short CBC 03/19/22 03/20/22 Range/Units 16:28 05:53 WBC 16.50 H 11.07 H (4.8-10.8) K/uL Hgb 14.6 13.7 L (14.0-18.0) g/dL Hct 41.0 L 39.4 L (42-52) % Plt Count 238 232 (130-400) K/uL BMP 03/19/22 03/20/22 16:28 05:53 Sodium 129 L 127 L Potassium 3.9 4.0 Chloride 95 L 91 L Carbon Dioxide 24 29 BUN 8 13 Creatinine 0.86 1.07 Glucose 188 H 170 H Calcium 8.6 8.4 L Liver Function 03/19/22 Range/Units 16:28 Total Bilirubin 1.1 H (0.2-1.0) mg/dl AST 17 (13-39) U/L ALT 14 (7-52) U/L Alkaline Phosphatase 69 (34-104) U/L Albumin 4.1 (3.4-5.0) gm/dl Urine 03/19/22 Range/Units 20:51 Urine Color Yellow Urine Appearance Clear (Clear) Urine pH 8.0 H (4.5-7.5) Ur Specific [place] 1.013 (1.000-1.030) Urine Protein Negative (Negative) Urine Glucose (UA) 2+ H (Negative)
--- NOTE | 2022-03-20 19:04 | Electrocardiogram Report ---
Test Reason : Blood Pressure : / mmHG Vent. Rate : 069 BPM Atrial Rate : 069 BPM P-R Int : 178 ms QRS Dur : 092 ms QT Int : 454 ms P-R-T Axes : 055 -31 014 degrees QTc Int : 486 ms Normal sinus rhythm Left axis deviation Nonspecific ST abnormality Prolonged QT Abnormal ECG When compared with ECG of 28-JUN-2021 16:17, No significant change was found Confirmed by Cordell Weir ([id number]) on 03/20/2022 7:04:15 PM Referred By: REFERRED SELF Confirmed By:Lazaro Weir
--- NOTE | 2022-03-20 19:56 | XRay Report ---
LEFT HIP 2 VIEWS CLINICAL HISTORY: Postoperative examination. FINDINGS: AP and crosstable lateral views of the left hip are compared to study dated 03/19/2022. The skeletal structures are osteopenic. Intertrochanteric and intramedullary nails have been placed trans fixing a comminuted intertrochanteric fracture. Near-anatomic alignment is maintained. A single corti yehuda lag screw transfixes the distal end of the intramedullary nail. No new fracture is seen. Mild/mod erate degenerative joint space narrowing is seen in the left hip. Skin clips, soft tissue edema, and subcutaneous gas overlying the left hip are expected postoperative findings. Skin clips project over the lateral aspect of the distal thigh. IMPRESSION: Expected postoperative findings status post open reduction and internal fixation of a lef t proximal femoral fracture. Near-anatomic alignment has been restored. Electronically signed by: Gareth Rosado M.D. 03/20/2022 7:54 PM
[2022-03-20] MEDS: TAMSULOSIN HCL 0.4 MG CAP PO SCH (20:06)
[2022-03-20] MEDS: DOCUSATE SODIUM/SENNA 50/8.6MG TAB PO SCH (20:07)
[2022-03-20] MEDS: DAPSONE 25 MG TAB PO SCH (20:07)
[2022-03-20] MEDS: ASPIRIN 81 MG ECTAB PO SCH (20:08)
[2022-03-20] MEDS: ceFAZolin 2000MG 2,000 MG/15 ML SYR IV SCH (21:43)
[2022-03-21] MEDS: ceFAZolin 2000MG 2,000 MG/15 ML SYR IV SCH (04:26)
[2022-03-21 07:31] LABS: Hematocrit (blood only) 30.3 % (42-52); Hemoglobin 10.6 g/dL (14.0-18.0); Mean Corpuscular Hemoglobin 30.7 pg (25-34); Mean Corpuscular Volume 87.8 fL (80-100); Mean Platelet Volume 10.3 fL (7.4-10.4); Platelet Count 191 K/uL (130-400); RDW Coefficient of Variation 12.3 % (11.5-14.5); RDW Standard Deviation 39.7 fL (36.4-46.3); Red Blood Count 3.45 M/uL (4.7-6.1)
[2022-03-21 07:46] LABS: Calcium 7.7 mg/dl (8.5-10.1); Creatinine Clr Calc Pharmacy 51.9 ml/min; Est GFR (African American) 75.3 ml/min; Est GFR (Non-African American) 64.9 ml/min
[2022-03-21] MEDS: DOFETILIDE 125 MCG CAPSULE PO SCH ×2 (08:02→21:24)
[2022-03-21] MEDS: METOPROLOL SUCC 50MG EXT REL TAB PO SCH ×2 (08:02→21:24)
[2022-03-21] MEDS: PANTOprazole 40 MG TAB PO SCH ×2 (08:02→21:23)
[2022-03-21] MEDS: VALSARTAN 80 MG TAB PO SCH ×2 (08:02→21:22)
[2022-03-21] MEDS: DULoxetine HCL 30 MG CAP PO SCH (08:03)
[2022-03-21] MEDS: CLOPIDOGREL BISULFATE 75 MG TAB PO SCH (08:03)
[2022-03-21] MEDS: ATORVASTATIN 40 MG TAB PO SCH (08:03)
[2022-03-21] MEDS: INSULIN ASPART PER UNIT SC SCH ×4 (08:08→21:25)
--- NOTE | 2022-03-21 08:40 | Orthopedic Progress Note ---
Date of Service March 21, 2022 Assessment & Plan (1) Closed intertrochanteric fracture of left femur: S/p Left intratrochanteric hip fracture closed reduction and long cephalomedullary nail fixation (DOS 03/21/2022; Dr. 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 Care management consulted. Anticipate inpatient rehab Will follow Discussed w/ Dr. Barr Subjective Doing well today. Minimal pain. VSS . Review of Systems All systems reviewed & are unremarkable except as noted in HPI & below. Physical Exam General: Pleasant 77 y/o/m resting in bed comfortably in NAD. AAO x 4. LLE: Dressings C/D/I. Leg lengths equal. Distally NVI. Expected incisional tenderness. Results & Data Results & Data Laboratory Results Reviewed - Hgb stable, ongoing hyponatremia Diagnostic Findings Reviewed - Post op XRs with near anatomic reduction of fracture w/ good hardware position . PG Care Time/CCT Total # of Minutes Spent Total Time Spent with Patient: Total time spent is greater than 50% in coordination of care (as documented) at patient's floor/unit and/or counseling patient: Coding Level of Care Code 13391 Post Operative Follow-Up Diagnoses Closed intertrochanteric fracture of left femur S72.142A
--- NOTE | 2022-03-21 10:22 | Nephrology Consultation ---
Date of Consultation March 21, 2022 Assessment & Plan (1) Hyponatremia: worsened chronic hyponatremia sOsm 267, u Osm 584; Jhon 62; sNa 129 on presentation and worsening to 126 this am;K wnl presume hypotonic euvolemic to slightly hypovolemic -recheck bmp ordered >low threshold to give low dose lasix depending on results but no fluid limit or strict interventions until taking regular po again; encourage food/genet protein > water/liquids where possible and push protein shakes as early as feasible -continue to hold jardiance, metformin, ARB; may need lasix depending on above results History of Present Illness Reason for Consultation: hyponatremia Requesting Physician: dr Grissom Attending Physician: Ty Grissom MD History of Present Illness 77 y/o M whom I'm asked to see for hyponatremia was admitted 03/20 for management of L hip fracture after a fall and underwent surgical repair of same on day of admission. PMH includes DM w/ neuropathy, dermatitis herptiformis; chronic ambulatory dysfunction walker dependent, pAF s/p watchman device and on tikosyn, NHL, HTN, CAD. He has chronic OP hyponatremia; admission sNa was 129; sNa today is 126 w/ K 4; creat 1.1. uOsms 548; Jhon 62 He has no IVF running currently and is 1L + total on the admission; he was this am NPO but now advanced to heart healthy consistent. he endorses some N; no emesis; no uncontrolled pain; no sob; no edema Allergies Allergy/AdvReac Type Severity Reaction Status Date / Time hydroxyzine Allergy Severe Anaphylaxis Verified 03/19/22 18:41 Gold Salts Allergy Intermediate hives Verified 03/19/22 18:41 losartan Allergy Intermediate hypotension Verified 03/19/22 18:41 triamcinolone Allergy Intermediate "pustules/r Verified 03/19/22 18:41 edness" Penicillins Allergy Mild RASH Verified 03/19/22 18:41 wheat Allergy Mild Rash Verified 03/19/22 18:41 Home Medications Medication Instructions Recorded Confirmed Type clopidogrel 75 mg tablet 75 mg PO QAM 08/27/18 03/19/22 History dapsone 25 mg tablet 25 mg PO QPM 08/27/18 03/19/22 History fluticasone propionate 50 2 spray INTRANASAL HS 08/27/18 03/19/22 History mcg/actuation nasal spray,suspension metformin 500 mg tablet,extended 1,000 mg PO BID 08/27/18 03/19/22 History release 24 hr aspirin 81 mg tablet,delayed 81 mg PO HS 09/25/18 03/19/22 History release nitroglycerin 0.4 mg sublingual 1 dose SUBLINGUAL DIRECTED PRN 09/25/18 History tablet (Nitrostat) tamsulosin 0.4 mg capsule (Flomax) 0.4 mg PO HS 12/11/18 03/19/22 History furosemide 20 mg tablet (Lasix) 20 mg PO 2XWK 02/02/19 03/19/22 History potassium chloride 10 mEq 10 meq PO 2XWK 02/02/19 03/19/22 History capsule,extended release metoprolol succinate 50 mg 50 mg PO BID tab 09/10/19 03/19/22 History tablet,extended release 24 hr (Toprol XL) acetaminophen 500 mg tablet 1,000 mg PO Q8 PRN 11/22/20 03/19/22 History (Acetaminophen Extra Strength) buspirone 5 mg tablet 5 mg PO BID PRN 11/22/20 03/19/22 History dofetilide 250 mcg capsule 250 mcg PO Q12 11/22/20 03/19/22 History duloxetine 30 mg capsule,delayed 30 mg PO DAILY 11/22/20 03/19/22 History release multivitamin 1 tab PO DAILY 11/22/20 03/19/22 History linagliptin 5 mg tablet (Tradjenta) 5 mg PO DAILY 06/13/21 03/19/22 History betamethasone, augmented 0.05 % 1 applic TOPICAL BID 06/28/21 03/19/22 History topical ointment valsartan 80 mg tablet 40 mg PO BID 30 Days #30 tab 06/30/21 03/19/22 Rx atorvastatin 40 mg tablet 40 mg PO DAILY 03/19/22 03/19/22 History empagliflozin 10 mg tablet 10 mg PO DAILY 03/19/22 03/19/22 History (Jardiance) glipizide 5 mg tablet, extended 5 mg PO DAILY 03/19/22 03/19/22 History release 24 hr omeprazole 20 mg capsule,delayed 20 mg PO BID 03/19/22 03/19/22 History release Patient History Medical History Autoimmune hemolytic anemia CAD (coronary artery disease) Chronic coronary heart disease patient with history of complex interventions with progression/in stent restenosis within 6 months of stopping clopidogrel after an LAD intervention plus new lesions in the same vessel and therefore he is on chronic dual anti-platelet therapy. 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 " On 07/25/11 18:09 Dianelys Mack wrote "with neuropathy " On 07/25/11 18:09 Dianelys Mack wrote "with neuropathy " Diverticular disease of colon GERD (gastroesophageal reflux disease) Hearing deficit History of adenomatous polyp of colon History of non-Hodgkin's lymphoma Hypertension Myocardial infarction 2013, 2016 Osteoarthritis Paroxysmal atrial fibrillation pulmonary vein isolation procedure 05/06/2018 with cryoablation Presence of Watchman left atrial appendage closure device Thrombocytopenia Surgical History History of arthroscopy of left shoulder History of bilateral cataract extraction History of cardiac cath 2013, 2016, 09/12/2018 History of cardiac radiofrequency ablation 04/2018 @ [facility] History of colonoscopy History of esophagogastroduodenoscopy (EGD) History of heart artery stent 2013 x1, 2016x1, 09/12/2018 x2(drug eluting stent @ [facility]) History of tonsillectomy and adenoidectomy History of tooth extraction wisdom teeth History of umbilical hernia repair Hx of exploratory laparotomy Presence of Watchman left atrial appendage closure device placed 11/27/18 @ [facility] Status post cholecystectomy "1994" Status post pericardiocentesis Status post vasectomy Family History Sister Family history of diabetes mellitus Family history of reaction to anesthesia difficulty waking Mother Family history of diabetes mellitus Social History Smoking Status: Former smoker Tobacco Type: Cigarettes packs per day: 1; Years Smoked: 30; Cigarettes Per Day: 1 PPD; Smoking End Date: 1997; Second Hand Exposure: No; Hx Alcohol Use: No Hx Substance Use: No Preferred Language: Kazakh Communication Ability: Effective Hvac Technician Required: No Beliefs That Will Affect Care: None marital status: Current Living Situation: Alone current occupation: Retired Other Information That Helps Us Care for You: No Feels Safe at Home: Yes Safety Concerns: Feels Safe At This Time Assistive Devices: Cane and Walker Assistive Devices Comment: uses walker at baseline independently Review of Systems Review of Systems: All systems reviewed & are unremarkable except as noted in Subjective Physical Exam Constitutional: well developed and well nourished on 02nc Eyes: EOM intact bilaterally ENMT: Ears: no external ear abnormality Nose: no external nose abnormality Mouth: + dry oral mucous membranes ? flat expression/parkinsonism facial expression Neck: no nuchal rigidity Respiratory: normal respiratory effort Auscultation: + diminished lung sounds Gastrointestinal (Abdomen): Inspection/Auscultation: normal bowel sounds Percussion/Palpation: abdomen soft; abdomen nontender Musculoskeletal: Extremities: strength 5/5 throughout Skin: no rashes, warm and dry Neurologic: gutierrez, fluent speech, no tremor Psychiatric: Orientation: oriented x 3 Results & Data ([facility]) Vital Signs (Past 12 Hours) Vital Signs Temp Pulse Pulse Resp BP Pulse Ox 03/21/22 07:26 66 03/21/22 06:39 36.9 C 66 20 109/68 97 03/21/22 04:37 37.0 C 69 18 167/88 H 96 03/20/22 22:54 37.0 C 70 18 151/79 H 94 03/20/22 22:20 69 Laboratory Results 03/21/22 06:44 03/21/22 06:44
[2022-03-21] MEDS: CHOLECALCIFEROL 1,000 UNITS 25 MCG TAB PO SCH (11:23)
[2022-03-21] MEDS: oxyCODONE HCL IR 5 MG TAB (IMMEDIATE RELEASE) PO PRN (11:23)
[2022-03-21] MEDS: ACETAMINOPHEN 325 MG TAB PO PRN (13:38)
--- NOTE | 2022-03-21 18:24 | Hospitalist Progress Note ---
Date of Service March 21, 2022 Assessment & Plan (1) Closed intertrochanteric fracture of left femur: Plan: Patient presents with hip pain after a mechanical fall. Closed intertrochanteric fracture of the left femur Hip X ray:Impacted and angulated intertrochanteric fracture of the left proximal femur as above. S/P Left intratrochanteric hip fracture closed reduction and long cephalomedullary nail fixation (Left)by on 03/20/22 Fall precautions Incentive spirometry Pin control PT/OT when appropriate Appreciate Orthopedics Input Leukocytosis likely reactive WBAT left lower extremity DVT Px:SCDs, Teds, On Aspirin, Plavix May need Rehab Placement (2) Hypertensive urgency: Plan: Likely situational due to pain Continue metoprolol, valsartan IV labetalol PRN (3) Leukocytosis: Plan: No obvious signs of infection Possibly reactive Monitor CBC Urinary Retention Bladder scan as needed Place desai if recurrence of retention (4) Hyponatremia: Plan: Chronic Hyponatremia Sodium 129>>127>126 Poor oral intake Monitor sodium levels Appreciate Nephrology Input Check TSH (5) CAD (coronary artery disease): Plan: Stable Continue ASA, Plavix, statin, Metoprolol (6) History of atrial fibrillation: (7) Presence of Watchman left atrial appendage closure device: Plan: Rhythm controlled on Tikosyn, rate controlled on metoprolol Monitor (8) Diabetes mellitus type 2 in nonobese: Plan: Hgb A1c 6.3 01/2022 Hold oral agents Utilize NovoLog per protocol while hospitalized (9) Dermatitis herpetiformis: Plan: On Dapsone (10) DVT prophylaxis: Plan: SCDs, Teds, Aspirin, Plavix Admission and Anticipated Discharge Date Admission Date: March 19, 2022 Subjective Patient is seen and examined at bedside Poor Appetite Was having PT during my encounter Hip Pain is controlled Reports mild dizziness Denies any chest pain, shortness of breath, dizziness, nausea, abdominal pain Review of Systems Review of Systems: All systems reviewed & are unremarkable except as noted in Subjective Physical Exam Physical Exam: Physical Exam: Vitals signs as noted above General Appearance:Moderately built and nourished, no apparent distress Head: normocephalic, Atraumatic Eyes: normal inspection, EOMI Neck: supple, Trachea midline Respiratory/Chest: Normal breath sounds, CTA, No accessory muscle use Cardiovascular: S1, S2, No murmur Abdomen/GI:Soft, Non tender, Bowel sounds present Extremities/Musculoskeletal:normal inspection, Trace edema, Left UR abrasion, Left hip tender Neurologic/Psych:AAOX3, grossly no focal neurological deficits Skin: normal color, warm Results & Data Results & Data ([facility]) Vital Signs (Past 12 Hours) Vital Signs Temp Pulse Pulse Resp BP Pulse Ox 03/21/22 16:10 36.8 C 66 18 145/73 H 93 03/21/22 14:52 68 03/21/22 11:46 36.9 C 65 19 170/80 H 96 03/21/22 07:26 66 03/21/22 06:39 36.9 C 66 20 109/68 97 Laboratory Results Short CBC 03/21/22 Range/Units 06:44 WBC 12.60 H (4.8-10.8) K/uL Hgb 10.6 L D (14.0-18.0) g/dL Hct 30.3 L (42-52) % Plt Count 191 (130-400) K/uL [facility] 03/21/22 06:44 Sodium 126 L Potassium 4.0 Chloride 94 L Carbon Dioxide 27 BUN 13 Creatinine 1.08 Glucose 188 H Calcium 7.7 L
[2022-03-21 18:28] LABS: BUN Creatinine Ratio 11.8 (10-20); Calcium 7.8 mg/dl (8.5-10.1); Creatinine Clr Calc Pharmacy 60.2 ml/min; Est GFR (African American) 90.2 ml/min; Est GFR (Non-African American) 77.8 ml/min; Potassium 4.2 mmol/L (3.5-5.1)
[2022-03-21] MEDS: TAMSULOSIN HCL 0.4 MG CAP PO SCH (21:23)
[2022-03-21] MEDS: DAPSONE 25 MG TAB PO SCH (21:24)
[2022-03-21] MEDS: DOCUSATE SODIUM/SENNA 50/8.6MG TAB PO SCH (21:24)
[2022-03-21] MEDS: ASPIRIN 81 MG ECTAB PO SCH (21:25)
[2022-03-22 07:01] LABS: Hematocrit (blood only) 28.3 % (42-52); Hemoglobin 9.8 g/dL (14.0-18.0); Mean Corpuscular Hemoglobin 30.5 pg (25-34); Mean Corpuscular Hgb Conc 34.6 g/dL (32-36); Mean Corpuscular Volume 88.2 fL (80-100); Platelet Count 162 K/uL (130-400); RDW Coefficient of Variation 12.1 % (11.5-14.5); RDW Standard Deviation 39.4 fL (36.4-46.3); Red Blood Count 3.21 M/uL (4.7-6.1); White Blood Count 9.46 K/uL (4.8-10.8)
[2022-03-22 07:29] LABS: BUN Creatinine Ratio 12.4 (10-20); Calcium 7.8 mg/dl (8.5-10.1); Creatinine Clr Calc Pharmacy 62.9 ml/min; Est GFR (African American) 94.3 ml/min; Est GFR (Non-African American) 81.3 ml/min; Potassium 4.1 mmol/L (3.5-5.1)
[2022-03-22] MEDS: DOFETILIDE 125 MCG CAPSULE PO SCH ×2 (08:02→20:02)
[2022-03-22] MEDS: VALSARTAN 80 MG TAB PO SCH ×2 (08:03→20:01)
[2022-03-22] MEDS: PANTOprazole 40 MG TAB PO SCH ×2 (08:03→20:02)
[2022-03-22] MEDS: CLOPIDOGREL BISULFATE 75 MG TAB PO SCH (08:03)
[2022-03-22] MEDS: METOPROLOL SUCC 50MG EXT REL TAB PO SCH ×2 (08:03→20:02)
[2022-03-22] MEDS: CHOLECALCIFEROL 1,000 UNITS 25 MCG TAB PO SCH (08:04)
[2022-03-22] MEDS: ATORVASTATIN 40 MG TAB PO SCH (08:04)
[2022-03-22] MEDS: DULoxetine HCL 30 MG CAP PO SCH (08:04)
[2022-03-22] MEDS: INSULIN ASPART PER UNIT SC SCH ×4 (08:07→21:13)
[2022-03-22] MEDS: INSULIN GLARGINE SOLOSTAR 100 UNITS/ML 3 ML PEN SC SCH ×2 (10:00→21:13)
[2022-03-22] MEDS: oxyCODONE HCL IR 5 MG TAB (IMMEDIATE RELEASE) PO PRN (10:03)
--- NOTE | 2022-03-22 12:31 | Orthopedic Progress Note ---
Date of Service March 22, 2022 Assessment & Plan (1) Closed intertrochanteric fracture of left femur: S/p Left intratrochanteric hip fracture closed reduction and long cephalomedullary nail fixation (DOS 03/21/2022; Dr. Barr) -Doing well on POD 2 -Continue current pain regimen w/ tylenol and oxycodone -Maintain dressings, ok for daily dressing changes prn starting on POD 3 -DVT PPx: TEDs/SCDs, Continue Aspirin and Plavix -PT/OT; ok for OOB w/ assistance, WBAT LLE -Rest of care per primary team. Dispo: PT recommending inpatient rehab. Care management consulted. Stable from Ortho standpoint for discharge once placement is established. Final disposition per medicine team. Will follow Discussed w/ Dr. Barr Subjective Feels fine today. Minimal pain at rest, severe pain when attempting ambulation. VSS . Review of Systems All systems reviewed & are unremarkable except as noted in HPI & below. Physical Exam General: Pleasant 77 y/o/m resting in bed comfortably in NAD. AAO x 4. LLE: Dressings C/D/I. Leg lengths equal. Distally NVI. Expected incisional tenderness. Results & Data Results & Data Laboratory Results Reviewed - Ongoing hyponatremia . Diagnostic Findings None recent . PG Care Time/CCT Total # of Minutes Spent Total Time Spent with Patient: Total time spent is greater than 50% in coordination of care (as documented) at patient's floor/unit and/or counseling patient: Coding Level of Care Code 95783 Post Operative Follow-Up Diagnoses Closed intertrochanteric fracture of left femur S72.142A
--- NOTE | 2022-03-22 17:58 | Nephrology Progress Note ---
Date of Service March 22, 2022 Assessment & Plan (1) Hyponatremia: Plan: worsened chronic hyponatremia sOsm 267, u Osm 584; Jhon 62; sNa 129 on presentation and worsening to 126 6/15 > 125 6/16;K wnl presume hypotonic euvolemic to slightly hypovolemic though he is on 02 which is new >>mixed picture -ordered 1.5L FR -will give lasix 10 mg po bid17 starting this evening -urged pt to eat more than to drink and to priortize protein intake -recheck bmp in AM -cxr ordered for am >low threshold to give low dose lasix depending on results but no fluid limit or strict interventions until taking regular po again; encourage food/genet protein > water/liquids where possible and push protein shakes as early as feasible -continue to hold jardiance, metformin, ARB; may need lasix depending on above results Admission and Anticipated Discharge Date Admission Date: March 19, 2022 Subjective seen on rounds this am; no n/v, taking po now; no uncontrolled pain; not confused Review of Systems Review of Systems: All systems reviewed & are unremarkable except as noted in Subjective Physical Exam Constitutional: well developed, well nourished and cooperative; no acute distress Eyes: EOM intact bilaterally ENMT: Ears: no external ear abnormality Nose: no external nose abnormality Mouth: + dry oral mucous membranes Neck: no nuchal rigidity Respiratory: normal respiratory effort Auscultation: + diminished lung sounds Cardiovascular: RRR, no murmur, no edema Gastrointestinal (Abdomen): Inspection/Auscultation: normal bowel sounds Percussion/Palpation: abdomen soft; abdomen nontender Musculoskeletal: Extremities: strength 5/5 throughout Skin: no rashes, warm and dry Neurologic: gutierrez, fluent speech, no tremor Psychiatric: Orientation: oriented x 3 Results & Data ([facility]) Vital Signs (Past 12 Hours) Vital Signs Temp Pulse Pulse Resp BP Pulse Ox 03/22/22 15:30 37 C 69 18 114/64 92 03/22/22 15:13 69 03/22/22 11:47 36.6 C 69 18 111/59 L 90 03/22/22 08:56 70 03/22/22 08:25 37.0 C 75 18 127/75 92 Laboratory Results 03/22/22 06:51 03/22/22 06:51
--- NOTE | 2022-03-22 18:00 | Hospitalist Progress Note ---
Date of Service March 22, 2022 Assessment & Plan (1) Closed intertrochanteric fracture of left femur: Plan: Patient presents with hip pain after a mechanical fall. Closed intertrochanteric fracture of the left femur Hip X ray:Impacted and angulated intertrochanteric fracture of the left proximal femur as above. S/P Left intratrochanteric hip fracture closed reduction and long cephalomedullary nail fixation (Left)by on 03/20/22 Fall precautions Incentive spirometry Pin control PT/OT when appropriate Appreciate Orthopedics Input Leukocytosis likely reactive WBAT left lower extremity DVT Px:SCDs, Teds, On Aspirin, Plavix Needs Rehab Placement (2) Hypertensive urgency: Plan: Likely situational due to pain Continue metoprolol, valsartan IV labetalol PRN BP better today (3) Leukocytosis: Plan: No obvious signs of infection Possibly reactive Monitor CBC Urinary Retention Bladder scan as needed Place desai if recurrence of retention (4) Hyponatremia: Plan: Chronic Hyponatremia Sodium 129>>127>126>125 Poor oral intake TSH: normal Monitor sodium levels Appreciate Nephrology Input Started on IV lasix 10mg BID (5) CAD (coronary artery disease): Plan: Stable Continue ASA, Plavix, statin, Metoprolol (6) History of atrial fibrillation: (7) Presence of Watchman left atrial appendage closure device: Plan: Rhythm controlled on Tikosyn, rate controlled on metoprolol Monitor (8) Diabetes mellitus type 2 in nonobese: Plan: Hgb A1c 6.3 01/2022 Hold oral agents Utilize NovoLog per protocol while hospitalized (9) Dermatitis herpetiformis: Plan: On Dapsone (10) DVT prophylaxis: Plan: SCDs, Teds, Aspirin, Plavix Admission and Anticipated Discharge Date Admission Date: March 19, 2022 Subjective Patient is seen and examined at bedside No new complaints Pain at surgical site is controlled Appetite remains poor Denies any chest pain, shortness of breath, dizziness, nausea, abdominal pain Review of Systems Review of Systems: All systems reviewed & are unremarkable except as noted in Subjective Physical Exam Physical Exam: Physical Exam: Vitals signs as noted above General Appearance:Moderately built and nourished, no apparent distress Head: normocephalic, Atraumatic Eyes: normal inspection, EOMI Neck: supple, Trachea midline Respiratory/Chest: Normal breath sounds, CTA, No accessory muscle use Cardiovascular: S1, S2, No murmur Abdomen/GI:Soft, Non tender, Bowel sounds present Extremities/Musculoskeletal:normal inspection, Trace edema, Left UR abrasion, Left hip tender Neurologic/Psych:AAOX3, grossly no focal neurological deficits Skin: normal color, warm Results & Data Results & Data ([facility]) Vital Signs (Past 12 Hours) Vital Signs Temp Pulse Pulse Resp BP Pulse Ox 03/22/22 15:30 37 C 69 18 114/64 92 03/22/22 15:13 69 03/22/22 11:47 36.6 C 69 18 111/59 L 90 03/22/22 08:56 70 03/22/22 08:25 37.0 C 75 18 127/75 92 Laboratory Results Short CBC 03/22/22 Range/Units 06:51 WBC 9.46 (4.8-10.8) K/uL Hgb 9.8 L (14.0-18.0) g/dL Hct 28.3 L (42-52) % Plt Count 162 (130-400) K/uL [facility] 03/21/22 03/22/22 17:43 06:51 Sodium 124 L 125 L Potassium 4.2 4.1 Chloride 91 L 93 L Carbon Dioxide 28 27 BUN 11 11 Creatinine 0.93 0.89 Glucose 205 H 192 H Calcium 7.8 L 7.8 L
[2022-03-22] MEDS: FUROSEMIDE 20 MG TAB PO SCH (18:40)
[2022-03-22] MEDS: TAMSULOSIN HCL 0.4 MG CAP PO SCH (20:01)
[2022-03-22] MEDS: DAPSONE 25 MG TAB PO SCH (20:03)
[2022-03-22] MEDS: ASPIRIN 81 MG ECTAB PO SCH (20:03)
[2022-03-22] MEDS: DOCUSATE SODIUM/SENNA 50/8.6MG TAB PO SCH (20:10)
--- NOTE | 2022-03-23 09:43 | XRay Report ---
XR chest 1V portable CLINICAL HISTORY: hypoxia COMPARISON STUDY: Chest CT June 13, 2021. Chest radiograph March 19, 2022. FINDINGS: Lung volumes are normal. Lungs are clear. There is no pneumothorax or pleural effusion. Mil d cardiomegaly is noted. Mediastinal contours are normal. There is no evidence for pulmonary edema. P roximal left humeral internal fixation is incidentally noted. There is a left atrial appendage occlud er device. IMPRESSION: No acute cardiopulmonary findings. No change in appearance of the chest. ACT 112: Negative or not required by law. Electronically signed by: Len Simons M.D. 03/23/2022 9:41 AM
[2022-03-23] MEDS: CHOLECALCIFEROL 1,000 UNITS 25 MCG TAB PO SCH (09:58)
[2022-03-23] MEDS: CLOPIDOGREL BISULFATE 75 MG TAB PO SCH (09:58)
[2022-03-23] MEDS: ATORVASTATIN 40 MG TAB PO SCH (09:58)
[2022-03-23] MEDS: DOFETILIDE 125 MCG CAPSULE PO SCH ×2 (09:58→21:32)
[2022-03-23] MEDS: FUROSEMIDE 20 MG TAB PO SCH ×2 (09:59→18:34)
[2022-03-23] MEDS: DULoxetine HCL 30 MG CAP PO SCH (09:59)
[2022-03-23] MEDS: INSULIN GLARGINE SOLOSTAR 100 UNITS/ML 3 ML PEN SC SCH ×2 (09:59→21:33)
[2022-03-23] MEDS: METOPROLOL SUCC 50MG EXT REL TAB PO SCH ×2 (10:00→21:30)
[2022-03-23] MEDS: PANTOprazole 40 MG TAB PO SCH ×2 (10:00→21:29)
[2022-03-23] MEDS: VALSARTAN 80 MG TAB PO SCH ×2 (10:00→21:31)
[2022-03-23] MEDS: INSULIN ASPART PER UNIT SC SCH ×4 (10:01→21:28)
[2022-03-23] MEDS: oxyCODONE HCL IR 5 MG TAB (IMMEDIATE RELEASE) PO PRN ×2 (10:06→21:27)
[2022-03-23 10:10] LABS: Hematocrit (blood only) 26.5 % (42-52); Hemoglobin 9.3 g/dL (14.0-18.0)
[2022-03-23 10:20] LABS: BUN Creatinine Ratio 15.3 (10-20); Calcium 7.9 mg/dl (8.5-10.1); Creatinine Clr Calc Pharmacy 65.9 ml/min; Est GFR (African American) 96.1 ml/min; Est GFR (Non-African American) 82.9 ml/min; Potassium 3.9 mmol/L (3.5-5.1)
--- NOTE | 2022-03-23 12:36 | Nephrology Progress Note ---
Date of Service March 23, 2022 Assessment & Plan (1) Hyponatremia: Plan: worsened chronic hyponatremia sOsm 267 u Osm 584; Jhon 62; sNa 129 on presentation and worsening to 126 6/15 > 125 6/16;K wnl presume hypotonic euvolemic to slightly hypovolemic though he is on 02 which is new >>mixed picture; CXR shows no marked plm edema or congestion -cont 1.5L FR -started lasix 10 mg po bid17 starting 03/22 PM >> this AM gave extra 10 mg and upped to 20 mg po bid and started K 10 mEq po bid -recheck bmp 1600 ordered -urged pt to eat more than to drink and to priortize protein intake -continue to hold jardiance, metformin, ARB; may need lasix depending on above results Admission and Anticipated Discharge Date Admission Date: March 19, 2022 Subjective no interval events clinically; denies sob, n/v; tolerating po well; no edema Review of Systems Review of Systems: All systems reviewed & are unremarkable except as noted in Subjective Physical Exam Constitutional: well developed, well nourished and cooperative; no acute distress Eyes: EOM intact bilaterally ENMT: Ears: no external ear abnormality Nose: no external nose abnormality Mouth: + dry oral mucous membranes Neck: no nuchal rigidity Respiratory: normal respiratory effort Auscultation: + diminished lung sounds Cardiovascular: RRR, no murmur, no edema Gastrointestinal (Abdomen): Inspection/Auscultation: normal bowel sounds Percussion/Palpation: abdomen soft; abdomen nontender Musculoskeletal: Extremities: strength 5/5 throughout Skin: no rashes, warm and dry Neurologic: gutierrez, fluent speech but still slight psychomotor slowing Psychiatric: Orientation: oriented x 3 Results & Data ([facility]) Vital Signs (Past 12 Hours) Vital Signs Temp Pulse Pulse Resp BP BP Pulse Ox 03/23/22 11:28 36.8 C 70 18 122/65 99 03/23/22 10:28 95 03/23/22 08:09 68 03/23/22 07:26 36.7 C 67 18 132/76 95 03/23/22 04:00 36.6 C 67 16 126/73 93 Laboratory Results 03/23/22 09:25 03/23/22 09:25
[2022-03-23] MEDS ORDERED: POLYETHYLENE (MIRALAX) 17 GM PACK PO PRN (12:40)
[2022-03-23] MEDS ORDERED: POLYETHYLENE (MIRALAX) 17 GM PACK PO ONE (12:41)
[2022-03-23] MEDS ORDERED: FUROSEMIDE 20 MG TAB PO ONE (12:45)
[2022-03-23] MEDS: POTASSIUM CHLORIDE 10 MEQ TABCR PO SCH ×2 (13:06→21:27)
--- NOTE | 2022-03-23 13:10 | XRay Report ---
XR chest 1V portable at 12:59 PM CLINICAL HISTORY: aspiration. Evaluate for pneumonia COMPARISON STUDY: 03/23/2022 at 6:55 AM TECHNIQUE: 1 view of the chest FINDINGS: Single frontal view of the chest demonstrates the cardiomediastinal silhouette to be within normal li mits. The lungs are clear of alveolar opacities. There is no evidence for pleural effusion. There is no evidence for vascular congestion. There is no acute osseous pathology. IMPRESSION: 1. No acute cardiopulmonary disease. ACT 112: Negative or not required by law. Electronically signed by: Nicholas Manzanares M.D. 03/23/2022 1:09 PM
--- NOTE | 2022-03-23 14:40 | Electrocardiogram Report ---
Test Reason : Blood Pressure : / mmHG Vent. Rate : 072 BPM Atrial Rate : 072 BPM P-R Int : 174 ms QRS Dur : 090 ms QT Int : 422 ms P-R-T Axes : 005 -18 015 degrees QTc Int : 462 ms Normal sinus rhythm Normal ECG When compared with ECG of 19-MAR-2022 16:27, No significant change was found Confirmed by Cordell Weir ([id number]) on 03/23/2022 2:39:54 PM Referred By: REFERRED SELF Confirmed By:Lazaro Weir
[2022-03-23 16:57] LABS: Calcium 8.1 mg/dl (8.5-10.1); Creatinine Clr Calc Pharmacy 69.1 ml/min; Est GFR (Non-African American) 84.5 ml/min; Potassium 3.8 mmol/L (3.5-5.1)
--- NOTE | 2022-03-23 18:07 | Hospitalist Progress Note ---
Date of Service March 23, 2022 Assessment & Plan (1) Closed intertrochanteric fracture of left femur: Plan: Patient presents with hip pain after a mechanical fall. Closed intertrochanteric fracture of the left femur Hip X ray:Impacted and angulated intertrochanteric fracture of the left proximal femur as above. S/P Left intratrochanteric hip fracture closed reduction and long cephalomedullary nail fixation (Left)by on 03/20/22 Fall precautions Incentive spirometry Pin control PT/OT when appropriate Appreciate Orthopedics Input Leukocytosis likely reactive WBAT left lower extremity DVT Px:SCDs, Teds, On Aspirin, Plavix Needs Rehab Placement (2) Hypertensive urgency: Plan: Likely situational due to pain Continue metoprolol, valsartan IV labetalol PRN Monitor (3) Leukocytosis: Plan: No obvious signs of infection Possibly reactive Monitor CBC Resolved Urinary Retention Bladder scan as needed Place desai if recurrence of retention (4) Hyponatremia: Plan: Chronic Hyponatremia Sodium 129>>127>126>125>127 Poor oral intake TSH: normal Monitor sodium levels Appreciate Nephrology Input Continue Lasix as per Nephrology Aspiration --CXR:No acute cardiopulmonary disease. 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 (10) DVT prophylaxis: Plan: SCDs, Teds, Aspirin, Plavix Admission and Anticipated Discharge Date Admission Date: March 19, 2022 Subjective Patient is seen and examined at bedside Reports constipation and intermittent dizziness Had PT earlier today Reported aspiration/choking episode with lunch today by RN Chest x-ray showed no acute findings Denies any chest pain, shortness of breath, dizziness, nausea, abdominal pain Poor appetite Review of Systems Review of Systems: All systems reviewed & are unremarkable except as noted in Subjective Physical Exam Physical Exam: Physical Exam: Vitals signs as noted above General Appearance:Moderately built and nourished, no apparent distress Head: normocephalic, Atraumatic Eyes: normal inspection, EOMI Neck: supple, Trachea midline Respiratory/Chest: Normal breath sounds, CTA, No accessory muscle use Cardiovascular: S1, S2, No murmur Abdomen/GI:Soft, Non tender, Bowel sounds present Extremities/Musculoskeletal:normal inspection, Trace edema, Left UR abrasion, Left hip tender Neurologic/Psych:AAOX3, grossly no focal neurological deficits Skin: normal color, warm Results & Data Results & Data ([facility]) Vital Signs (Past 12 Hours) Vital Signs Temp Pulse Pulse Resp BP BP Pulse Ox 03/23/22 15:59 72 03/23/22 15:00 36.6 C 75 18 148/75 H 95 03/23/22 11:28 36.8 C 70 18 122/65 99 03/23/22 10:28 95 03/23/22 08:09 68 03/23/22 07:26 36.7 C 67 18 132/76 95 Laboratory Results Short CBC 03/23/22 Range/Units 09:25 Hgb 9.3 L (14.0-18.0) g/dL Hct 26.5 L (42-52) % BMP 03/23/22 03/23/22 09:25 15:36 Sodium 125 L 127 L Potassium 3.9 3.8 Chloride 93 L 94 L Carbon Dioxide 28 28 BUN 13 13 Creatinine 0.85 0.81 Glucose 282 H 144 H Calcium 7.9 L 8.1 L
[2022-03-23] MEDS: DOCUSATE SODIUM/SENNA 50/8.6MG TAB PO SCH (21:28)
[2022-03-23] MEDS: DAPSONE 25 MG TAB PO SCH (21:29)
[2022-03-23] MEDS: ASPIRIN 81 MG ECTAB PO SCH (21:29)
[2022-03-23] MEDS: TAMSULOSIN HCL 0.4 MG CAP PO SCH (21:30)
[2022-03-24 06:58] LABS: Hematocrit (blood only) 27.2 % (42-52); Hemoglobin 9.5 g/dL (14.0-18.0)
[2022-03-24] MEDS: DULoxetine HCL 30 MG CAP PO SCH (07:35)
[2022-03-24] MEDS: PANTOprazole 40 MG TAB PO SCH ×2 (07:35→22:05)
[2022-03-24] MEDS: ATORVASTATIN 40 MG TAB PO SCH (07:35)
[2022-03-24] MEDS: CLOPIDOGREL BISULFATE 75 MG TAB PO SCH (07:35)
[2022-03-24] MEDS: CHOLECALCIFEROL 1,000 UNITS 25 MCG TAB PO SCH (07:35)
[2022-03-24] MEDS: VALSARTAN 80 MG TAB PO SCH ×2 (07:36→22:05)
[2022-03-24] MEDS: METOPROLOL SUCC 50MG EXT REL TAB PO SCH ×2 (07:36→22:03)
[2022-03-24] MEDS: DOFETILIDE 125 MCG CAPSULE PO SCH ×2 (07:36→22:03)
[2022-03-24] MEDS: ACETAMINOPHEN 325 MG TAB PO PRN (07:38)
[2022-03-24] MEDS: POTASSIUM CHLORIDE 10 MEQ TABCR PO SCH ×2 (07:40→22:06)
[2022-03-24 07:53] LABS: BUN Creatinine Ratio 12.9 (10-20); Calcium 7.9 mg/dl (8.5-10.1); Creatinine Clr Calc Pharmacy 65.9 ml/min; Est GFR (African American) 96.1 ml/min; Est GFR (Non-African American) 82.9 ml/min; Potassium 3.9 mmol/L (3.5-5.1)
[2022-03-24] MEDS: INSULIN ASPART PER UNIT SC SCH ×4 (08:37→22:04)
[2022-03-24] MEDS: INSULIN GLARGINE SOLOSTAR 100 UNITS/ML 3 ML PEN SC SCH ×2 (08:37→22:05)
[2022-03-24] MEDS: FUROSEMIDE 20 MG TAB PO SCH ×2 (11:18→17:08)
--- NOTE | 2022-03-24 17:34 | Hospitalist Progress Note ---
Date of Service March 24, 2022 Assessment & Plan (1) Closed intertrochanteric fracture of left femur: Plan: Patient presents with hip pain after a mechanical fall. Closed intertrochanteric fracture of the left femur Hip X ray:Impacted and angulated intertrochanteric fracture of the left proximal femur as above. S/P Left intratrochanteric hip fracture closed reduction and long cephalomedullary nail fixation (Left)by on 03/20/22 Fall precautions Incentive spirometry Pin control PT/OT when appropriate Appreciate Orthopedics Input Leukocytosis likely reactive WBAT left lower extremity DVT Px:SCDs, Teds, On Aspirin, Plavix Waiting for rehab placement (2) Hypertensive urgency: Plan: Likely situational due to pain Continue metoprolol, valsartan IV labetalol PRN Monitor (3) Leukocytosis: Plan: No obvious signs of infection Possibly reactive Monitor CBC Resolved Urinary Retention Bladder scan as needed Place desai if recurrence of retention Continue tamsulosin (4) Hyponatremia: Plan: Chronic Hyponatremia Sodium 129>>127>126>125>127>128 Poor oral intake TSH: normal Monitor sodium levels Appreciate Nephrology Input Continue Lasix as per Nephrology Aspiration --CXR:No acute cardiopulmonary disease. 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 (10) DVT prophylaxis: Plan: SCDs, Teds, Aspirin, Plavix Disposition Rehab as able Admission and Anticipated Discharge Date Admission Date: March 19, 2022 Subjective Patient is seen and examined at bedside Sitting in chair during my encounter Offers no new complaints Discussed with patient's family at bedside Swallowing issues currently Saturating well on 2 L supplemental oxygen Denies any chest pain, shortness of breath, dizziness, nausea, abdominal pain Leg pain at surgical site is controlled Review of Systems Review of Systems: All systems reviewed & are unremarkable except as noted in Subjective Physical Exam Physical Exam: Physical Exam: Vitals signs as noted above General Appearance:Moderately built and nourished, no apparent distress Head: normocephalic, Atraumatic Eyes: normal inspection, EOMI Neck: supple, Trachea midline Respiratory/Chest: Normal breath sounds, CTA, No accessory muscle use Cardiovascular: S1, S2, No murmur Abdomen/GI:Soft, Non tender, Bowel sounds present Extremities/Musculoskeletal:normal inspection, Trace edema, Left UR abrasion, Left hip tender Neurologic/Psych:AAOX3, grossly no focal neurological deficits Skin: normal color, warm Results & Data Results & Data ([facility]) Vital Signs (Past 12 Hours) Vital Signs Temp Pulse Resp BP BP Pulse Ox 03/24/22 16:05 36.7 C 96 H 18 115/71 96 03/24/22 10:55 36.6 C 71 20 149/80 H 94 03/24/22 07:00 36.7 C 67 18 129/78 97 Laboratory Results Short CBC 03/24/22 Range/Units 06:24 Hgb 9.5 L (14.0-18.0) g/dL Hct 27.2 L (42-52) % BMP 03/24/22 06:25 Sodium 128 L Potassium 3.9 Chloride 93 L Carbon Dioxide 31 BUN 11 Creatinine 0.85 Glucose 183 H Calcium 7.9 L
[2022-03-24] MEDS: ASPIRIN 81 MG ECTAB PO SCH (22:03)
[2022-03-24] MEDS: TAMSULOSIN HCL 0.4 MG CAP PO SCH (22:03)
[2022-03-24] MEDS: DOCUSATE SODIUM/SENNA 50/8.6MG TAB PO SCH (22:04)
[2022-03-24] MEDS: DAPSONE 25 MG TAB PO SCH (22:04)
[2022-03-25 06:58] LABS: Creatinine Clr Calc Pharmacy 65.1 ml/min; Est GFR (African American) 95.6 ml/min; Est GFR (Non-African American) 82.5 ml/min; Potassium 3.9 mmol/L (3.5-5.1)
[2022-03-25] MEDS: POTASSIUM CHLORIDE 10 MEQ TABCR PO SCH (07:43)
[2022-03-25] MEDS: DOFETILIDE 125 MCG CAPSULE PO SCH ×2 (07:43→22:04)
[2022-03-25] MEDS: PANTOprazole 40 MG TAB PO SCH ×2 (07:43→22:05)
[2022-03-25] MEDS: VALSARTAN 80 MG TAB PO SCH ×2 (07:43→22:06)
[2022-03-25] MEDS: METOPROLOL SUCC 50MG EXT REL TAB PO SCH ×2 (07:44→22:04)
[2022-03-25] MEDS: CHOLECALCIFEROL 1,000 UNITS 25 MCG TAB PO SCH (07:44)
[2022-03-25] MEDS: FUROSEMIDE 20 MG TAB PO SCH (07:44)
[2022-03-25] MEDS: ATORVASTATIN 40 MG TAB PO SCH (07:44)
[2022-03-25] MEDS: ACETAMINOPHEN 325 MG TAB PO PRN ×2 (07:44→15:51)
[2022-03-25] MEDS: CLOPIDOGREL BISULFATE 75 MG TAB PO SCH (07:44)
[2022-03-25] MEDS: DULoxetine HCL 30 MG CAP PO SCH (07:44)
[2022-03-25 07:48] LABS: Calcium 7.9 mg/dl (8.5-10.1)
[2022-03-25] MEDS: INSULIN GLARGINE SOLOSTAR 100 UNITS/ML 3 ML PEN SC SCH (08:23)
[2022-03-25] MEDS: INSULIN ASPART PER UNIT SC SCH ×5 (08:24→23:30)
--- NOTE | 2022-03-25 09:58 | CT Scan Report ---
CT head/brain wo con CLINICAL HISTORY: Right leg weakness COMPARISON STUDY: 03/19/2022 CT DOSE: 614.27 mGy.cm TECHNIQUE: Standard CT of the Brain was performed without IV contrast. A dose lowering technique was utilized adhering to the principles of ALARA. FINDINGS: Extraaxial space: There is no evidence for subdural hematoma. There are no extra-axial fluid collecti ons. Ventricles and cisterns: The ventricles are mildly dilated bilaterally. There is no evidence for midl ine shift or mass effect. Parenchyma: There is no subarachnoid or intraparenchymal hemorrhage. There is no evidence for an acut e infarct or cerebral edema. Old lacunar infarct is again seen within the basal ganglia on the left. There is mild cerebral cortical atrophy and decreased attenuation in the periventricular white matter representing remote small vessel disease. There are no gross mass lesions. Osseous structures: There is no evidence for an acute fracture. There is again evidence for mild bila teral ethmoid sinusitis. The remaining visualized paranasal sinuses are clear. The mastoid air cells are clear bilaterally. Soft tissues: There is no evidence for focal soft tissue swelling. IMPRESSION: 1. No acute intracerebral pathology. 2. Cerebral cortical atrophy and remote small vessel disease are again seen. 3. Mild chronic ethmoid sinusitis is also again seen. ACT 112: Negative or not required by law. Electronically signed by: Nicholas Manzanares M.D. 03/25/2022 9:56 AM
[2022-03-25] MEDS: FUROSEMIDE 40 MG TAB PO SCH ×2 (11:32→17:13)
[2022-03-25] MEDS: POTASSIUM CHLORIDE CRTAB 20 MEQ TABCR PO SCH ×2 (11:32→22:05)
[2022-03-25] MEDS ORDERED: PHARMACY GLYCEMIC MGMT CONSULT PRN (11:47)
[2022-03-25] MEDS ORDERED: INSULIN GLARGINE SOLOSTAR 100 UNITS/ML 3 ML PEN SC ONE (12:15)
[2022-03-25] MEDS ORDERED: INSULIN HUMAN REGULAR PER UNIT 5 UNITS in SYRINGE 4.95 ML IV ONE (12:15)
--- NOTE | 2022-03-25 14:16 | Pharmacy Report ---
Pharmacy Glycemic Short Note 2 - Date of Service March 25, 2022 - Glycemic Short BSG Results (Last 24 hours): 03/24/22 03/24/22 03/24/22 16:36 20:19 20:22 Glucose POC Glucose 211 H 319 H* 305 H* 03/25/22 03/25/22 03/25/22 00:24 05:54 07:32 Glucose 222 H POC Glucose 233 H 222 H 03/25/22 03/25/22 03/25/22 11:35 11:37 11:40 Glucose POC Glucose 332 H* 273 H 308 H* OUTPATIENT ANTIDIABETIC REGIMEN: * Metformin 1000 mg PO BIDM * Glipizide 5 mg PO daily * Tradjenta 5 mg PO daily HbA1c pending for 03/26/22 ASSESSMENT: * DON is a 77 year old male admitted on 03/19/22 w/ left hip fracture s/p fall * Pharmacy consulted for glycemic management today due to persistent hyperglycemia (BSG of 332 mg/dL at lunch) * Patient had previously been receiving Lantus 5 units SC BID with Novolog (CF of 35 and INS:CHO of 15) * Will give IV insulin bolus, increase basal, and tighten Novolog parameters today PLAN FOR INPATIENT GLYCEMIC CONTROL: * Hold outpatient oral diabetes medications * Basal insulin * Lantus 5 units SC this morning, will give 15 units today with lunch for 20 units total today * Bolus insulin * NovoLog per scale ACHS or Q6hrs while NPO * Goal Range: Low 110 mg/dL - High 140 mg/dL * Correction Factor: 30 mg/dL/unit * Nutritional / Prandial insulin per carb ratio of 1 unit per 10 grams CHO consumed
--- NOTE | 2022-03-25 15:56 | Hospitalist Progress Note ---
Date of Service March 25, 2022 Assessment & Plan (1) Closed intertrochanteric fracture of left femur: Plan: Patient presents with hip pain after a mechanical fall. Closed intertrochanteric fracture of the left femur Hip X ray:Impacted and angulated intertrochanteric fracture of the left proximal femur as above. S/P Left intratrochanteric hip fracture closed reduction and long cephalomedullary nail fixation (Left)by on 03/20/22 Fall precautions Incentive spirometry Pin control PT/OT when appropriate Appreciate Orthopedics Input Leukocytosis likely reactive WBAT left lower extremity DVT Px:SCDs, Teds, On Aspirin, Plavix Waiting for rehab placement Continue current management (2) Hypertensive urgency: Plan: Likely situational due to pain Continue metoprolol, valsartan IV labetalol PRN Monitor (3) Leukocytosis: Plan: No obvious signs of infection Possibly reactive Monitor CBC Resolved Urinary Retention Bladder scan as needed Place desai if recurrence of retention Continue tamsulosin (4) Hyponatremia: Plan: Chronic Hyponatremia Sodium 129>>127>126>125>127>128 Poor oral intake TSH: normal Monitor sodium levels Appreciate Nephrology Input Continue Lasix as per Nephrology Aspiration --CXR:No acute cardiopulmonary disease. 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 (10) DVT prophylaxis: Plan: SCDs, Teds, Aspirin, Plavix Disposition Rehab as able Admission and Anticipated Discharge Date Admission Date: March 19, 2022 Subjective Patient is seen and examined at bedside Noted to have transient right lower extremity weakness this morning by RN CT head showed no acute findings States feeling well during my encounter No new complaints Pain at surgical site is controlled Denies any chest pain, shortness of breath, dizziness, nausea, abdominal pain Saturating low 90s on room air Review of Systems Review of Systems: All systems reviewed & are unremarkable except as noted in Subjective Physical Exam Physical Exam: Physical Exam: Vitals signs as noted above General Appearance:Moderately built and nourished, no apparent distress Head: normocephalic, Atraumatic Eyes: normal inspection, EOMI Neck: supple, Trachea midline Respiratory/Chest: Normal breath sounds, CTA, No accessory muscle use Cardiovascular: S1, S2, No murmur Abdomen/GI:Soft, Non tender, Bowel sounds present Extremities/Musculoskeletal:normal inspection, Trace edema, Left UR abrasion, Left hip tender Neurologic/Psych:AAOX3, grossly no focal neurological deficits Skin: normal color, warm Results & Data Results & Data ([facility]) Vital Signs (Past 12 Hours) Vital Signs Temp Pulse Resp BP BP Pulse Ox 03/25/22 15:00 36.5 C 70 18 132/69 93 03/25/22 11:44 36.3 C L 68 18 131/70 95 03/25/22 09:30 95 03/25/22 06:37 36.8 C 69 18 150/78 H 94 Laboratory Results [facility] 03/25/22 05:54 Sodium 128 L Potassium 3.9 Chloride 94 L Carbon Dioxide 31 BUN 12 Creatinine 0.86 Glucose 222 H Calcium 7.9 L
--- NOTE | 2022-03-25 16:33 | Nephrology Progress Note ---
Date of Service March 25, 2022 Assessment & Plan (1) Hyponatremia: Plan: worsened chronic hyponatremia sOsm 267 u Osm 584; Jhon 62; sNa 129 on presentation and worsening to 126 6/15 > 125 6/16;K wnl presume hypotonic euvolemic to slightly hypovolemic; off of 02 now; CXR shows no marked plm edema or congestion -cont 1.5L FR -cont lasix 20 mg po bid and started K 10 mEq po bid -daily bmp -urged pt to eat more than to drink and to priortize protein intake -continue to hold jardiance, metformin, ARB; may need lasix depending on above results Admission and Anticipated Discharge Date Admission Date: March 19, 2022 Subjective no interval events. denies n/v/sob/edema. he's up in chair toay and tolerting; states he 's eating well Review of Systems Review of Systems: All systems reviewed & are unremarkable except as noted in Subjective Physical Exam Constitutional: well developed, well nourished and cooperative; no acute distress up in chair on RA Eyes: EOM intact bilaterally ENMT: Ears: no external ear abnormality Nose: no external nose abnormality Mouth: + dry oral mucous membranes Neck: no nuchal rigidity Respiratory: normal respiratory effort Auscultation: + diminished lung sounds Cardiovascular: RRR, no murmur, no edema Gastrointestinal (Abdomen): Inspection/Auscultation: normal bowel sounds Percussion/Palpation: abdomen soft; abdomen nontender Musculoskeletal: Extremities: strength 5/5 throughout Skin: no rashes, warm and dry Neurologic: gutierrez, no tremor, fluent speech Psychiatric: Orientation: oriented x 3 Results & Data ([facility]) Vital Signs (Past 12 Hours) Vital Signs Temp Pulse Resp BP BP Pulse Ox 03/25/22 15:00 36.5 C 70 18 132/69 93 03/25/22 11:44 36.3 C L 68 18 131/70 95 03/25/22 09:30 95 03/25/22 06:37 36.8 C 69 18 150/78 H 94 Laboratory Results 03/24/22 06:24 03/25/22 05:54
[2022-03-25] MEDS: DOCUSATE SODIUM/SENNA 50/8.6MG TAB PO SCH (22:03)
[2022-03-25] MEDS: DAPSONE 25 MG TAB PO SCH (22:03)
[2022-03-25] MEDS: ASPIRIN 81 MG ECTAB PO SCH (22:03)
[2022-03-25] MEDS: TAMSULOSIN HCL 0.4 MG CAP PO SCH (22:06)
[2022-03-26] MEDS: INSULIN ASPART PER UNIT SC SCH ×5 (03:49→20:46)
[2022-03-26 06:13] LABS: Hematocrit (blood only) 30.7 % (42-52); Hemoglobin 10.7 g/dL (14.0-18.0); Mean Corpuscular Hemoglobin 30.4 pg (25-34); Mean Corpuscular Hgb Conc 34.9 g/dL (32-36); Mean Corpuscular Volume 87.2 fL (80-100); Mean Platelet Volume 10.5 fL (7.4-10.4); Platelet Count 283 K/uL (130-400); RDW Coefficient of Variation 12.5 % (11.5-14.5); RDW Standard Deviation 39.7 fL (36.4-46.3); Red Blood Count 3.52 M/uL (4.7-6.1); White Blood Count 9.63 K/uL (4.8-10.8)
[2022-03-26 06:35] LABS: BUN Creatinine Ratio 12.2 (10-20); Calcium 8.3 mg/dl (8.5-10.1); Creatinine Clr Calc Pharmacy 62.2 ml/min; Est GFR (African American) 93.8 ml/min; Est GFR (Non-African American) 80.9 ml/min; Potassium 3.3 mmol/L (3.5-5.1)
[2022-03-26 08:00] LABS: Estimated Average Glucose 126 mg/dl
[2022-03-26] MEDS ORDERED: POTASSIUM CHLORIDE CRTAB 20 MEQ TABCR PO STA (08:01)
[2022-03-26] MEDS: VALSARTAN 80 MG TAB PO SCH ×2 (08:23→20:47)
[2022-03-26] MEDS: CLOPIDOGREL BISULFATE 75 MG TAB PO SCH (08:24)
[2022-03-26] MEDS: PANTOprazole 40 MG TAB PO SCH ×2 (08:24→20:48)
[2022-03-26] MEDS: DULoxetine HCL 30 MG CAP PO SCH (08:24)
[2022-03-26] MEDS: DOFETILIDE 125 MCG CAPSULE PO SCH ×2 (08:24→20:47)
[2022-03-26] MEDS: METOPROLOL SUCC 50MG EXT REL TAB PO SCH ×2 (08:24→20:48)
[2022-03-26] MEDS: POTASSIUM CHLORIDE CRTAB 20 MEQ TABCR PO SCH ×2 (08:24→20:48)
[2022-03-26] MEDS: ATORVASTATIN 40 MG TAB PO SCH (08:25)
[2022-03-26] MEDS: CHOLECALCIFEROL 1,000 UNITS 25 MCG TAB PO SCH (08:25)
[2022-03-26] MEDS: INSULIN GLARGINE SOLOSTAR 100 UNITS/ML 3 ML PEN SC SCH ×2 (08:38→20:47)
[2022-03-26] MEDS ORDERED: busPIRone 5 MG TAB PO PRN (08:48)
[2022-03-26] MEDS: FUROSEMIDE 80 MG TAB PO SCH ×2 (11:09→17:46)
[2022-03-26] MEDS: oxyCODONE HCL IR 5 MG TAB (IMMEDIATE RELEASE) PO PRN (13:17)
--- NOTE | 2022-03-26 13:25 | Pharmacy Report ---
Pharmacy Glycemic Short Note 2 - Date of Service March 26, 2022 - Glycemic Short BSG Results (Last 24 hours): 03/25/22 03/25/22 03/25/22 16:45 20:10 23:24 Glucose POC Glucose 126 H 182 H 219 H 03/26/22 03/26/22 03/26/22 03:46 05:27 07:25 Glucose 181 H POC Glucose 151 H 199 H 03/26/22 11:45 Glucose POC Glucose 275 H OUTPATIENT ANTIDIABETIC REGIMEN: * Metformin 1000 mg PO BIDM * Glipizide 5 mg PO daily * Tradjenta 5 mg PO daily HbA1c pending for 03/26/22 ASSESSMENT: 03/26/22 * BSGs improved yesterday, but still intermittently elevated * Received 52 units of insulin yesterday (20 units of Lantus, 27 units of Novolog, and 5 units of IV regular insulin) * Fasting BSG of 199 mg/dL this morning - will increase basal insulin again today * Given uptrend in BSGs at HS following dinner yesterday, and at lunch again today - will further tighten carb coverage 03/25/22 * DON is a 77 year old male admitted on 03/19/22 w/ left hip fracture s/p fall * Pharmacy consulted for glycemic management today due to persistent hyperglycemia (BSG of 332 mg/dL at lunch) * Patient had previously been receiving Lantus 5 units SC BID with Novolog (CF of 35 and INS:CHO of 15) * Will give IV insulin bolus, increase basal, and tighten Novolog parameters today PLAN FOR INPATIENT GLYCEMIC CONTROL: * Hold outpatient oral diabetes medications * Basal insulin - increase * Lantus 13 units SC BID (weight-based stress of 2 dosing) * Bolus insulin - tighten carb ratio * NovoLog per scale ACHS or Q6hrs while NPO * Goal Range: Low 110 mg/dL - High 140 mg/dL * Correction Factor: 30 mg/dL/unit * Nutritional / Prandial insulin per carb ratio of 1 unit per 8 grams CHO consumed
--- NOTE | 2022-03-26 18:34 | Hospitalist Progress Note ---
Date of Service March 26, 2022 Assessment & Plan (1) Closed intertrochanteric fracture of left femur: Plan: Patient presents with hip pain after a mechanical fall. Closed intertrochanteric fracture of the left femur Hip X ray:Impacted and angulated intertrochanteric fracture of the left proximal femur as above. S/P Left intratrochanteric hip fracture closed reduction and long cephalomedullary nail fixation (Left)by on 03/20/22 Fall precautions Incentive spirometry Pin control PT/OT when appropriate Appreciate Orthopedics Input Leukocytosis likely reactive WBAT left lower extremity DVT Px:SCDs, Teds, On Aspirin, Plavix Needs rehab placement Needs follow-up with orthopedics upon discharge (2) Hypertensive urgency: Plan: Likely situational due to pain Continue metoprolol, valsartan IV labetalol PRN Monitor (3) Leukocytosis: Plan: No obvious signs of infection Possibly reactive Monitor CBC Resolved Urinary Retention Bladder scan as needed Place desai if recurrence of retention Continue tamsulosin (4) Hyponatremia: Plan: Chronic Hyponatremia Sodium 129>>127>126>125>127>128>129 Poor oral intake TSH: normal Monitor sodium levels Appreciate Nephrology Input Continue Lasix as per Nephrology Aspiration --CXR:No acute cardiopulmonary disease. 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 (10) DVT prophylaxis: Plan: SCDs, Teds, Aspirin, Plavix Disposition Rehab as able Admission and Anticipated Discharge Date Admission Date: March 19, 2022 Subjective Patient is seen and examined at bedside Had coughing episode while having lunch today Diet changed to minced and moist Pain at surgical site is controlled Appetite slowly improving Sodium levels improved to 129 Denies any chest pain, shortness of breath, dizziness, nausea, abdominal pain Review of Systems Review of Systems: All systems reviewed & are unremarkable except as noted in Subjective Physical Exam Physical Exam: Physical Exam: Vitals signs as noted above General Appearance:Moderately built and nourished, no apparent distress Head: normocephalic, Atraumatic Eyes: normal inspection, EOMI Neck: supple, Trachea midline Respiratory/Chest: Normal breath sounds, CTA, No accessory muscle use Cardiovascular: S1, S2, No murmur Abdomen/GI:Soft, Non tender, Bowel sounds present Extremities/Musculoskeletal:normal inspection, Trace edema, Left UR abrasion, Left hip tender Neurologic/Psych:AAOX3, grossly no focal neurological deficits Skin: normal color, warm Results & Data Results & Data ([facility]) Vital Signs (Past 12 Hours) Vital Signs Temp Pulse Pulse Resp BP BP Pulse Ox 03/26/22 15:22 36.5 C 82 20 147/79 H 96 03/26/22 15:04 84 03/26/22 11:16 36.3 C L 117 H 14 119/73 97 03/26/22 07:52 36.4 C L 79 18 183/95 H 94 03/26/22 07:00 75 Laboratory Results Short CBC 03/26/22 Range/Units 05:27 WBC 9.63 (4.8-10.8) K/uL Hgb 10.7 L (14.0-18.0) g/dL Hct 30.7 L (42-52) % Plt Count 283 (130-400) K/uL BMP 03/26/22 05:27 Sodium 129 L Potassium 3.3 L Chloride 93 L Carbon Dioxide 29 BUN 11 Creatinine 0.90 Glucose 181 H Calcium 8.3 L
--- NOTE | 2022-03-26 18:40 | Nephrology Progress Note ---
Date of Service March 26, 2022 Assessment & Plan (1) Hyponatremia: Plan: worsened chronic hyponatremia sOsm 267 u Osm 584; Jhon 62; sNa 129 on presentation and worsening to 126 6/15 > 125 6/16;K wnl > 129 today for sodium and K low but only 200 mL negative this AM I increased lasix to 80 mg bid 17 and gave more K >recheck bmp now presume hypotonic euvolemic to slightly hypovolemic; off of 02 now; CXR shows no marked plm edema or congestion -cont 1.5L FR -daily bmp -urged pt to eat more than to drink and to priortize protein intake >> he is lethargic though; not sure how he's doing on that -continue to hold jardiance, metformin, ARB; may need lasix depending on above results Admission and Anticipated Discharge Date Admission Date: March 19, 2022 Subjective no interval events; ROS limited by pt fatigue; denies N, uncontrolled pain, worse fatigue, sob Review of Systems Review of Systems: All systems reviewed & are unremarkable except as noted in Subjective Physical Exam Constitutional: well developed, well nourished and + lethargic; no acute distress Eyes: EOM intact bilaterally ENMT: Ears: no external ear abnormality Nose: no external nose abnormality Mouth: + dry oral mucous membranes Neck: no nuchal rigidity Respiratory: normal respiratory effort Auscultation: + diminished lung sounds Cardiovascular: RRR, no murmur, no edema Gastrointestinal (Abdomen): Inspection/Auscultation: normal bowel sounds Percussion/Palpation: abdomen soft; abdomen nontender Musculoskeletal: Extremities: + abnormal strength (generalized weakness) Skin: no rashes, warm and dry Neurologic: gutierrez, slight psychomotor slowing, no tremor Psychiatric: Orientation: oriented x 3 Results & Data ([facility]) Vital Signs (Past 12 Hours) Vital Signs Temp Pulse Pulse Resp BP BP Pulse Ox 03/26/22 15:22 36.5 C 82 20 147/79 H 96 03/26/22 15:04 84 03/26/22 11:16 36.3 C L 117 H 14 119/73 97 03/26/22 07:52 36.4 C L 79 18 183/95 H 94 03/26/22 07:00 75 Laboratory Results 03/26/22 05:27 03/26/22 05:27
[2022-03-26 19:54] LABS: BUN Creatinine Ratio 14.3 (10-20); Calcium 8.3 mg/dl (8.5-10.1); Creatinine Clr Calc Pharmacy 53.3 ml/min; Est GFR (African American) 77.9 ml/min; Est GFR (Non-African American) 67.2 ml/min; Potassium 3.7 mmol/L (3.5-5.1)
[2022-03-26] MEDS: TAMSULOSIN HCL 0.4 MG CAP PO SCH (20:47)
[2022-03-26] MEDS: DAPSONE 25 MG TAB PO SCH (20:48)
[2022-03-26] MEDS: ASPIRIN 81 MG ECTAB PO SCH (20:49)
[2022-03-26] MEDS: DOCUSATE SODIUM/SENNA 50/8.6MG TAB PO SCH (20:51)
[2022-03-27 07:53] LABS: BUN Creatinine Ratio 16.7 (10-20); Calcium 8.3 mg/dl (8.5-10.1); Creatinine Clr Calc Pharmacy 62.2 ml/min; Est GFR (African American) 93.8 ml/min; Est GFR (Non-African American) 80.9 ml/min; Magnesium 1.5 mg/dl (1.7-2.4); Potassium 3.8 mmol/L (3.5-5.1)
[2022-03-27] MEDS: METOPROLOL SUCC 50MG EXT REL TAB PO SCH ×2 (08:43→21:30)
[2022-03-27] MEDS: PANTOprazole 40 MG TAB PO SCH ×2 (08:43→21:30)
[2022-03-27] MEDS: POTASSIUM CHLORIDE CRTAB 20 MEQ TABCR PO SCH ×2 (08:43→21:28)
[2022-03-27] MEDS: DOFETILIDE 125 MCG CAPSULE PO SCH ×2 (08:44→21:30)
[2022-03-27] MEDS: ATORVASTATIN 40 MG TAB PO SCH (08:44)
[2022-03-27] MEDS: VALSARTAN 80 MG TAB PO SCH ×2 (08:44→21:29)
[2022-03-27] MEDS: CLOPIDOGREL BISULFATE 75 MG TAB PO SCH (08:44)
[2022-03-27] MEDS: FUROSEMIDE 80 MG TAB PO SCH ×2 (08:45→18:06)
[2022-03-27] MEDS: CHOLECALCIFEROL 1,000 UNITS 25 MCG TAB PO SCH (08:45)
[2022-03-27] MEDS: DULoxetine HCL 30 MG CAP PO SCH (08:45)
[2022-03-27] MEDS: INSULIN GLARGINE SOLOSTAR 100 UNITS/ML 3 ML PEN SC SCH ×2 (08:47→21:31)
[2022-03-27] MEDS: INSULIN ASPART PER UNIT SC SCH ×4 (08:51→21:38)
[2022-03-27] MEDS ORDERED: MAGNESIUM SULFATE / D5W 1 GM/100 ML BAG IV ONE (09:32)
--- NOTE | 2022-03-27 12:30 | Pharmacy Report ---
Pharmacy Glycemic Short Note 2 - Date of Service March 27, 2022 - Glycemic Short BSG Results (Last 24 hours): 03/26/22 03/26/22 03/26/22 16:46 18:55 20:14 Glucose 235 H POC Glucose 185 H 254 H 03/27/22 03/27/22 03/27/22 07:08 07:28 11:21 Glucose 225 H POC Glucose 233 H 285 H OUTPATIENT ANTIDIABETIC REGIMEN: * Metformin 1000 mg PO BIDM * Glipizide 5 mg PO daily * Tradjenta 5 mg PO daily HbA1c pending for 03/26/22 ASSESSMENT: 03/27/22 * Patient's BSGs yesterday were [phone] mg/dL. Patient received 58 units of insulin (26 units of Lantus and 32 units of bolus). * BSGs today were 223-285 mg/dL. * Fasting trending upwards to increase Lantus by 20% to 32 units daily. (16 units BID) * Tighten CR significantly as BSGs trend upwards dramatically. CF appears to be appropriate for patient. 03/26/22 * BSGs improved yesterday, but still intermittently elevated * Received 52 units of insulin yesterday (20 units of Lantus, 27 units of Novolog, and 5 units of IV regular insulin) * Fasting BSG of 199 mg/dL this morning - will increase basal insulin again today * Given uptrend in BSGs at HS following dinner yesterday, and at lunch again today - will further tighten carb coverage 03/25/22 * JM is a 77 year old male admitted on 03/19/22 w/ left hip fracture s/p fall * Pharmacy consulted for glycemic management today due to persistent hyperglycemia (BSG of 332 mg/dL at lunch) * Patient had previously been receiving Lantus 5 units SC BID with Novolog (CF of 35 and INS:CHO of 15) * Will give IV insulin bolus, increase basal, and tighten Novolog parameters today PLAN FOR INPATIENT GLYCEMIC CONTROL: * Hold outpatient oral diabetes medications * Basal insulin - increase * Lantus 16 units SC BID (Lantus 13 units BID if BSG < 160 mg/dL) * Bolus insulin - tighten carb ratio * NovoLog per scale ACHS or Q6hrs while NPO * Goal Range: Low 110 mg/dL - High 140 mg/dL * Correction Factor: 30 mg/dL/unit * Nutritional / Prandial insulin per carb ratio of 1 unit per 5 grams CHO consumed
--- NOTE | 2022-03-27 17:15 | Hospitalist Progress Note ---
Date of Service March 27, 2022 Assessment & Plan (1) Closed intertrochanteric fracture of left femur: Plan: Patient presents with hip pain after a mechanical fall. Closed intertrochanteric fracture of the left femur Hip X ray:Impacted and angulated intertrochanteric fracture of the left proximal femur as above. S/P Left intratrochanteric hip fracture closed reduction and long cephalomedullary nail fixation (Left)by on 03/20/22 Fall precautions Incentive spirometry Pin control PT/OT when appropriate Appreciate Orthopedics Input Leukocytosis likely reactive WBAT left lower extremity DVT Px:SCDs, Teds, On Aspirin, Plavix Needs rehab placement Needs follow-up with orthopedics upon discharge (2) Hypertensive urgency: Plan: Likely situational due to pain Continue metoprolol, valsartan IV labetalol PRN Monitor (3) Leukocytosis: Plan: No obvious signs of infection Possibly reactive Monitor CBC Resolved Urinary Retention Bladder scan as needed Place desai if recurrence of retention Continue tamsulosin (4) Hyponatremia: Plan: Chronic Hyponatremia Sodium 129>>127>126>125>127 Poor oral intake TSH: normal Monitor sodium levels Appreciate Nephrology Input Continue Lasix as per Nephrology Currently on Lasix 80 mg twice a day orally Also on fluid restriction 1500ml Aspiration --CXR:No acute cardiopulmonary disease. 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 (10) DVT prophylaxis: Plan: SCDs, Teds, Aspirin, Plavix Disposition Rehab as able Admission and Anticipated Discharge Date Admission Date: March 19, 2022 Subjective Patient is seen and examined at bedside Poorly ate this morning Asking about discharge plan Denies any Pain at surgical site this morning Sodium levels 127 today Denies any chest pain, shortness of breath, dizziness, nausea, abdominal pain Review of Systems Review of Systems: All systems reviewed & are unremarkable except as noted in Subjective Physical Exam Physical Exam: Physical Exam: Vitals signs as noted above General Appearance:Moderately built and nourished, no apparent distress Head: normocephalic, Atraumatic Eyes: normal inspection, EOMI Neck: supple, Trachea midline Respiratory/Chest: Normal breath sounds, CTA, No accessory muscle use Cardiovascular: S1, S2, No murmur Abdomen/GI:Soft, Non tender, Bowel sounds present Extremities/Musculoskeletal:normal inspection, Trace edema, Left UR abrasion, Left hip tender Neurologic/Psych:AAOX3, grossly no focal neurological deficits Skin: normal color, warm Results & Data Results & Data ([facility]) Vital Signs (Past 12 Hours) Vital Signs Temp Pulse Pulse Resp BP BP Pulse Ox 03/27/22 15:29 36.8 C 80 20 111/71 93 03/27/22 14:27 107 H 03/27/22 11:56 36.8 C 81 18 143/81 H 92 03/27/22 06:32 36.7 C 79 18 149/77 H 90 03/27/22 06:20 78 Laboratory Results [facility] 03/26/22 03/27/22 18:55 07:08 Sodium 124 L 127 L Potassium 3.7 3.8 Chloride 90 L 92 L Carbon Dioxide 27 29 BUN 15 15 Creatinine 1.05 0.90 Glucose 235 H 225 H Calcium 8.3 L 8.3 L
--- NOTE | 2022-03-27 18:01 | Nephrology Progress Note ---
Date of Service March 27, 2022 Assessment & Plan (1) Hyponatremia: Plan: worsened chronic OP hyponatremia >> presume hypotonic euvolemic to slightly hypovolemic; off of 02 now; CXR shows no marked plm edema or congestion sOsm 267 u Osm 584; Jhon 62; sNa 129 on presentation and worsening to 126 6/15 > 125 6/16;K wnl > 129 today for sodium and K low; I/O not accurate d/t urine incontinence continue increased lasix to 80 mg bid 17 and higher K dose >recheck bmp in am -cont 1.5L FR -urged pt to eat more than to drink and to priortize protein intake >> he is lethargic though; not sure how he's doing on that -continue to hold jardiance, metformin, ARB; may need lasix depending on above results >>needs to be more alert probably >> ? pain med issue Admission and Anticipated Discharge Date Admission Date: March 19, 2022 Subjective again very tired/lethargic on rounds today; no c/o uncontrolled pain or sob or n/v; admits he has little energy Review of Systems Review of Systems: All systems reviewed & are unremarkable except as noted in Subjective Physical Exam Constitutional: well developed, well nourished and + lethargic; no acute distress Eyes: EOM intact bilaterally ENMT: Ears: no external ear abnormality Nose: no external nose abnormality Mouth: + dry oral mucous membranes Neck: no nuchal rigidity Respiratory: normal respiratory effort Auscultation: + diminished lung sounds Cardiovascular: RRR, no murmur, no edema Gastrointestinal (Abdomen): Inspection/Auscultation: normal bowel sounds Percussion/Palpation: abdomen soft; abdomen nontender Musculoskeletal: Extremities: + abnormal strength (generalized weakness) L hip bandaged Skin: no rashes, warm and dry Neurologic: gutierrez, minimal/ monosyllabic speech Psychiatric: Orientation: oriented x 3 Results & Data ([facility]) Vital Signs (Past 12 Hours) Vital Signs Temp Pulse Pulse Resp BP BP Pulse Ox 03/27/22 15:29 36.8 C 80 20 111/71 93 03/27/22 14:27 107 H 03/27/22 11:56 36.8 C 81 18 143/81 H 92 03/27/22 06:32 36.7 C 79 18 149/77 H 90 03/27/22 06:20 78 Laboratory Results 03/26/22 05:27 03/27/22 07:08
[2022-03-27] MEDS: ASPIRIN 81 MG ECTAB PO SCH (21:28)
[2022-03-27] MEDS: TAMSULOSIN HCL 0.4 MG CAP PO SCH (21:29)
[2022-03-27] MEDS: DAPSONE 25 MG TAB PO SCH (21:29)
[2022-03-27] MEDS: DOCUSATE SODIUM/SENNA 50/8.6MG TAB PO SCH (21:40)
[2022-03-28] MEDS: INSULIN GLARGINE SOLOSTAR 100 UNITS/ML 3 ML PEN SC SCH (08:24)
[2022-03-28] MEDS: INSULIN ASPART PER UNIT SC SCH ×4 (08:24→21:11)
[2022-03-28] MEDS: CLOPIDOGREL BISULFATE 75 MG TAB PO SCH (08:25)
[2022-03-28] MEDS: ACETAMINOPHEN 325 MG TAB PO PRN (08:25)
[2022-03-28] MEDS: CHOLECALCIFEROL 1,000 UNITS 25 MCG TAB PO SCH (08:25)
[2022-03-28] MEDS: DOFETILIDE 125 MCG CAPSULE PO SCH ×2 (08:26→21:03)
[2022-03-28] MEDS: ATORVASTATIN 40 MG TAB PO SCH (08:26)
[2022-03-28] MEDS: VALSARTAN 80 MG TAB PO SCH ×2 (08:26→21:05)
[2022-03-28] MEDS: POTASSIUM CHLORIDE CRTAB 20 MEQ TABCR PO SCH ×2 (08:26→21:04)
[2022-03-28] MEDS: METOPROLOL SUCC 50MG EXT REL TAB PO SCH ×2 (08:27→21:03)
[2022-03-28] MEDS: PANTOprazole 40 MG TAB PO SCH ×2 (08:27→21:04)
[2022-03-28] MEDS: DULoxetine HCL 30 MG CAP PO SCH (08:27)
[2022-03-28] MEDS: FUROSEMIDE 80 MG TAB PO SCH (08:54)
[2022-03-28 09:48] LABS: BUN Creatinine Ratio 16.8 (10-20); Calcium 8.8 mg/dl (8.5-10.1); Creatinine Clr Calc Pharmacy 49.6 ml/min; Est GFR (African American) 71.3 ml/min; Est GFR (Non-African American) 61.5 ml/min; Magnesium 1.9 mg/dl (1.7-2.4); Potassium 3.8 mmol/L (3.5-5.1)
[2022-03-28 09:53] LABS: Hematocrit (blood only) 34.1 % (42-52); Hemoglobin 11.5 g/dL (14.0-18.0); Mean Corpuscular Hemoglobin 29.8 pg (25-34); Mean Corpuscular Hgb Conc 33.7 g/dL (32-36); Mean Corpuscular Volume 88.3 fL (80-100); Mean Platelet Volume 10.7 fL (7.4-10.4); Platelet Count 366 K/uL (130-400); RDW Standard Deviation 41.3 fL (36.4-46.3); Red Blood Count 3.86 M/uL (4.7-6.1); White Blood Count 11.35 K/uL (4.8-10.8)
--- NOTE | 2022-03-28 11:49 | Nephrology Progress Note ---
Date of Service March 28, 2022 Assessment & Plan (1) Hyponatremia: Plan: worsened chronic OP hyponatremia >> presume hypotonic euvolemic to slightly hypovolemic; off of 02 now; CXR shows no marked plm edema or congestion sOsm 267 u Osm 584; Jhon 62; sNa 129 on presentation and worsening to 126 6/15 > 125 6/16;K wnl > 129 today for sodium and K low; I/O not accurate d/t urine incontinence We will reduce Lasix to 40 mg twice daily and start urea 15 mg twice daily. -cont 1.5L FR -urged pt to eat more than to drink and to priortize protein intake >> he is lethargic though; not sure how he's doing on that -continue to hold jardiance, metformin, ARB; may need lasix depending on above results >>needs to be more alert probably >> ? pain med issue Admission and Anticipated Discharge Date Admission Date: March 19, 2022 Subjective Seen for hyponatremia. Main complaint is left hip pain. No nausea or vomiting Review of Systems Review of Systems: All other systems were reviewed and negative except as noted in HPI Physical Exam Physical Exam: General exam: Appears comfortable, no acute distress HEENT: Pupils are equal and reactive to light Neck: No JVD, neck is supple trachea is midline Respiratory system: Clear breath sounds bilaterally. Gastrointestinal: Abdomen is soft, non distended, non tender, bowel sounds are present CVS: Regular rate and rhythm. No murmurs, rubs or gallops Musculoskeletal: No joint or muscle tenderness Extremities: Left hip tender, no edema, peripheral pulses are present Neuro: Oriented, no tremors, no focal neurological deficits Skin: No rashes Results & Data ([facility]) Vital Signs (Past 12 Hours) Vital Signs Temp Pulse Resp BP BP Pulse Ox 03/28/22 11:33 36.5 C 99 H 19 109/68 97 03/28/22 08:13 36.5 C 84 18 132/79 94 03/28/22 03:00 36.5 C 77 16 111/70 91 Laboratory Results 03/28/22 08:28 03/28/22 08:28 WBC 11.35 H RBC 3.86 L MCV 88.3 MCH 29.8 MCHC 33.7 RDW Std Deviation 41.3 RDW Coeff of [place] 13.0 Plt Count 366 MPV 10.7 H
[2022-03-28] MEDS: UREA (UREA-NA) 15 GM PACK PO SCH ×2 (12:54→21:06)
--- NOTE | 2022-03-28 12:59 | Hospitalist Progress Note ---
Date of Service March 28, 2022 Assessment & Plan (1) Closed intertrochanteric fracture of left femur: Plan: per Dr. Grissom's notes with addendum: Patient presents with hip pain after a mechanical fall. Closed intertrochanteric fracture of the left femur Hip X ray:Impacted and angulated intertrochanteric fracture of the left proximal femur as above. S/P Left intratrochanteric hip fracture closed reduction and long cephalomedullary nail fixation (Left)by on 03/20/22 Fall precautions Incentive spirometry Pin control PT/OT when appropriate Appreciate Orthopedics Input Leukocytosis likely reactive WBAT left lower extremity DVT Px:SCDs, Teds, On Aspirin, Plavix Needs rehab placement Needs follow-up with orthopedics upon discharge 03/28: denies hip pain continue PT/OT, DVT prophylaxis transfer to Rehab when ok with Nephro (2) Hypertensive urgency: Plan: Likely situational due to pain BP improved Continue metoprolol, valsartan IV labetalol PRN Monitor (3) Leukocytosis: Plan: No obvious signs of infection Possibly reactive resolved Urinary Retention Bladder scan as needed Place desai if recurrence of retention Continue tamsulosin (4) Hyponatremia: Plan: Chronic Hyponatremia Sodium 129>>127>126>125>127--> 130 Poor oral intake TSH: normal Nephro on board Lasix decreased to 40mg BID and NaCl 15mg BID repeat Na tomorrow Also on fluid restriction 1500ml Aspiration --CXR:No acute cardiopulmonary disease. 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 (10) DVT prophylaxis: Plan: SCDs, Teds, Aspirin, Plavix Disposition Rehab as able Admission and Anticipated Discharge Date Admission Date: March 19, 2022 Subjective ff up for hyponatremia, s/p L hip surgery seen resting in bed, comfortable sleeping but easily awakened states he feels fine overall no hip pain no chest pain, dyspnea, palpitations, dizziness no problems with urination appetite good no other symptoms Review of Systems Review of Systems: all noted and negative except for above Physical Exam Physical Exam: General- oriented x 2, not in distress, speaks in sentences with no effort or accessory muscle use Eyes- anicteric Neck- no JVD Lungs- clear breath sounds bilaterally, no rales/wheezes Heart- normal rate, regular rhythm; no murmurs Abdomen- normal bowel sounds, nondistended, soft, nontender Extremities- no pretibial edema, no calf tenderness Left hip: dressing in place, no bleeding/discharge/hematoma Neuro- alert, oriented x 2; no gross focal neurologic deficits Skin- warm & dry Results & Data Results & Data ([facility]) Vital Signs (Past 12 Hours) Vital Signs Temp Pulse Resp BP BP Pulse Ox 03/28/22 11:33 36.5 C 99 H 19 109/68 97 03/28/22 08:13 36.5 C 84 18 132/79 94 03/28/22 03:00 36.5 C 77 16 111/70 91 all noted and reviewed including below
--- NOTE | 2022-03-28 14:00 | Pharmacy Report ---
Pharmacy Glycemic Short Note 2 - Date of Service March 28, 2022 - Glycemic Short BSG Results (Last 24 hours): 03/27/22 03/27/22 03/28/22 16:28 20:30 07:38 Glucose POC Glucose 202 H 194 H 260 H 03/28/22 03/28/22 08:28 11:42 Glucose 285 H POC Glucose 273 H OUTPATIENT ANTIDIABETIC REGIMEN: * Metformin 1000 mg PO BIDM * Glipizide 5 mg PO daily * Tradjenta 5 mg PO daily HbA1c 6% (03/26/22) ASSESSMENT: 03/28/22 * BSGs remain elevated despite increased doses of basal and bolus insulin * Fasting BSG of 260 mg/dL this morning, will allow for increased basal again today * Will further tighten Novolog parameters today 03/27/22 * Patient's BSGs yesterday were [phone] mg/dL. Patient received 58 units of insulin (26 units of Lantus and 32 units of bolus). * BSGs today were 223-285 mg/dL. * Fasting trending upwards to increase Lantus by 20% to 32 units daily. (16 units BID) * Tighten CR significantly as BSGs trend upwards dramatically. CF appears to be appropriate for patient. 03/26/22 * BSGs improved yesterday, but still intermittently elevated * Received 52 units of insulin yesterday (20 units of Lantus, 27 units of Novolog, and 5 units of IV regular insulin) * Fasting BSG of 199 mg/dL this morning - will increase basal insulin again today * Given uptrend in BSGs at HS following dinner yesterday, and at lunch again today - will further tighten carb coverage 03/25/22 * DON is a 77 year old male admitted on 03/19/22 w/ left hip fracture s/p fall * Pharmacy consulted for glycemic management today due to persistent hyperglycemia (BSG of 332 mg/dL at lunch) * Patient had previously been receiving Lantus 5 units SC BID with Novolog (CF of 35 and INS:CHO of 15) * Will give IV insulin bolus, increase basal, and tighten Novolog parameters today PLAN FOR INPATIENT GLYCEMIC CONTROL: * Hold outpatient oral diabetes medications * Basal insulin - increase * Lantus 20 units SC daily * Lantus 12-20 units SC HS (to provide dose equivalent to yesterday vs. up to 20% increase) * Bolus insulin - tighten * NovoLog per scale ACHS or Q6hrs while NPO * Goal Range: Low 110 mg/dL - High 140 mg/dL * Correction Factor: 20 mg/dL/unit * Nutritional / Prandial insulin per carb ratio of 1 unit per 5 grams CHO consumed
--- NOTE | 2022-03-28 15:51 | Orthopedic Progress Note ---
Date of Service March 28, 2022 Assessment & Plan (1) Closed intertrochanteric fracture of left femur: S/p Left intratrochanteric hip fracture closed reduction and long cephalomedullary nail fixation (DOS 03/21/2022; Dr. Barr) -Making progress as expected. No changes to plan -Given expected discharge to the [facility], I ordered an interval x-ray today of his femur. -Continue current pain regimen and attempt at mobilization -Maintain dressings, ok for daily dressing changes prn starting on POD 3 -Troy should be removed at week 23 after a wound check. -DVT PPx: TEDs/SCDs, Continue Aspirin and Plavix -PT/OT; ok for OOB w/ assistance, WBAT LLE -Counseled patient that it may be 4-6 months to return to previous level of function, and this gets compromised by other medical conditions. Encouraged him to continue to work with PT/OT and eat well. Dispo: If he will be moving out of the area, it may be better to establish local ortho followup. Happy to assist as needed. Should have physician/PA wound check for staple removal 2-3 weeks postop. Repeat xrays are ordered today. Next xray interval should be around 6 weeks after surgery. Call w questions. Subjective Stopped to see patient for interval follow-up given duration of inpatient stay. Reports that he is likely heading to the [facility] for the next level of care to be near his son. Says he is having trouble walking because of weakness. Pain is improving but remains difficult. He wanted to know when he could walk again. Review of Systems All systems reviewed & are unremarkable except as noted in HPI & below. Physical Exam General: Asleep but easily arousable. Conversant. Appears comfortable LLE: Wounds are well approximated without erythema or active drainage. Dressings from 03/26 show minor yellow spotting. He is able to activate his quad but there is a lag with straight leg raise but she struggles to maintain without active assistance. Positive DF/PF/EHL. No significant pain on logroll which is improvement. He does appear to be comfortable and participate well when asked to do a straight leg raise. Results & Data Results & Data Laboratory Results . Diagnostic Findings . PG Care Time/CCT Total # of Minutes Spent Total Time Spent with Patient: Total time spent is greater than 50% in coordination of care (as documented) at patient's floor/unit and/or counseling patient: Coding Level of Care Code 24294 Post Operative Follow-Up Diagnoses Closed intertrochanteric fracture of left femur S72.142A
[2022-03-28] MEDS: FUROSEMIDE 40 MG TAB PO SCH (17:20)
--- NOTE | 2022-03-28 19:34 | XRay Report ---
XR femur LT 2V routine CLINICAL HISTORY: Postop check. COMPARISON STUDY: 03/20/2022 TECHNIQUE: AP and lateral left femur views FINDINGS: Bones: The patient is again status post placement of intramedullary nail with long stem intratrochant leandro eduarda within the femoral shaft. This is secured by a distal screw. Fracture through the base of th e femoral neck is again seen with slight overriding of the fracture fragments noted on the current st udy. There is no lytic or blastic lesion. Joints: The femoral head maintains its anatomic position within the acetabulum. The bones are in jacob omic alignment. Soft tissues: There is no focal soft tissue abnormality. There is no radiopaque foreign body. IMPRESSION: 1. Status post internal fixation with slight overriding of the fracture fragments on the current stud y. This could be projectional. ACT 112: Negative or not required by law. Electronically signed by: Nicholas Manzanares M.D. 03/28/2022 7:32 PM
[2022-03-28] MEDS ORDERED: INSULIN GLARGINE SOLOSTAR 100 UNITS/ML 3 ML PEN SC SCH (21:00)
[2022-03-28] MEDS: ASPIRIN 81 MG ECTAB PO SCH (21:01)
[2022-03-28] MEDS: DAPSONE 25 MG TAB PO SCH (21:02)
[2022-03-28] MEDS: TAMSULOSIN HCL 0.4 MG CAP PO SCH (21:05)
[2022-03-28] MEDS: DOCUSATE SODIUM/SENNA 50/8.6MG TAB PO SCH (21:09)
[2022-03-29] MEDS ORDERED: INSULIN ASPART PER UNIT SC SCH (02:00)
[2022-03-29] MEDS: CHOLECALCIFEROL 1,000 UNITS 25 MCG TAB PO SCH (08:19)
[2022-03-29] MEDS: FUROSEMIDE 40 MG TAB PO SCH ×2 (08:19→16:49)
[2022-03-29] MEDS: CLOPIDOGREL BISULFATE 75 MG TAB PO SCH (08:20)
[2022-03-29] MEDS: ATORVASTATIN 40 MG TAB PO SCH (08:20)
[2022-03-29] MEDS: DULoxetine HCL 30 MG CAP PO SCH (08:20)
[2022-03-29] MEDS: DOFETILIDE 125 MCG CAPSULE PO SCH ×2 (08:21→21:08)
[2022-03-29] MEDS: METOPROLOL SUCC 50MG EXT REL TAB PO SCH ×2 (08:21→21:08)
[2022-03-29] MEDS: UREA (UREA-NA) 15 GM PACK PO SCH ×2 (08:22→21:09)
[2022-03-29] MEDS: VALSARTAN 80 MG TAB PO SCH ×2 (08:22→21:07)
[2022-03-29] MEDS: POTASSIUM CHLORIDE CRTAB 20 MEQ TABCR PO SCH ×2 (08:22→21:07)
[2022-03-29] MEDS: PANTOprazole 40 MG TAB PO SCH ×2 (08:22→21:08)
[2022-03-29] MEDS: INSULIN GLARGINE SOLOSTAR 100 UNITS/ML 3 ML PEN SC SCH (08:24)
[2022-03-29] MEDS: INSULIN ASPART PER UNIT SC SCH ×4 (08:27→21:09)
--- NOTE | 2022-03-29 10:50 | Nephrology Progress Note ---
Date of Service March 29, 2022 Assessment & Plan (1) Hyponatremia: Plan: worsened chronic OP hyponatremia >> presume hypotonic euvolemic to slightly hypovolemic; off of 02 now; CXR shows no marked plm edema or congestion sOsm 267 u Osm 584; Jhon 62; sNa 129 on presentation and worsening to 126 6/15 > 125 6/16;K wnl > 129 today for sodium and K low; I/O not accurate d/t urine incontinence We will continue Lasix to 40 mg twice daily and urea 15 mg twice daily. -cont 1.5L FR -urged pt to eat more than to drink and to priortize protein intake >> he is lethargic though; not sure how he's doing on that -continue to hold jardiance, metformin, ARB; may need lasix depending on above results >>needs to be more alert probably >> ? pain med issue Admission and Anticipated Discharge Date Admission Date: March 19, 2022 Subjective Seen for hyponatremia. He feels better. He has left hip pain. Review of Systems Review of Systems: All other systems were reviewed and negative except as noted in HPI Physical Exam Physical Exam: General exam: Appears comfortable, no acute distress HEENT: Pupils are equal and reactive to light Neck: No JVD, neck is supple trachea is midline Respiratory system: Clear breath sounds bilaterally. Gastrointestinal: Abdomen is soft, non distended, non tender, bowel sounds are present CVS: Regular rate and rhythm. No murmurs, rubs or gallops Musculoskeletal: No joint or muscle tenderness Extremities: Left hip tender, no edema, peripheral pulses are present Neuro: Oriented, no tremors, no focal neurological deficits Skin: No rashes Results & Data ([facility]) Vital Signs (Past 12 Hours) Vital Signs Temp Pulse Pulse Resp BP Pulse Ox 03/29/22 07:38 36.4 C L 75 18 149/81 H 94 03/29/22 06:10 66 03/29/22 04:18 36.5 C 71 20 105/66 95 Laboratory Results 03/28/22 08:28
[2022-03-29 13:10] LABS: BUN Creatinine Ratio 32.1 (10-20); Calcium 8.5 mg/dl (8.5-10.1); Creatinine Clr Calc Pharmacy 52.8 ml/min; Est GFR (Non-African American) 66.4 ml/min; Potassium 3.9 mmol/L (3.5-5.1)
--- NOTE | 2022-03-29 15:20 | Hospitalist Progress Note ---
Date of Service March 29, 2022 Assessment & Plan (1) Closed intertrochanteric fracture of left femur: Plan: per Dr. Grissom's notes with addendum: Patient presents with hip pain after a mechanical fall. Closed intertrochanteric fracture of the left femur Hip X ray:Impacted and angulated intertrochanteric fracture of the left proximal femur as above. S/P Left intratrochanteric hip fracture closed reduction and long cephalomedullary nail fixation (Left)by on 03/20/22 Fall precautions Incentive spirometry Pin control PT/OT when appropriate Appreciate Orthopedics Input Leukocytosis likely reactive WBAT left lower extremity DVT Px:SCDs, Teds, On Aspirin, Plavix Needs rehab placement Needs follow-up with orthopedics upon discharge 03/29: denies hip pain continue PT/OT, DVT prophylaxis per Ortho MD Dr. Paras Barr: -Continue current pain regimen and attempt at mobilization -Maintain dressings, ok for daily dressing changes prn starting on POD 3 -Chetna should be removed at week 23 after a wound check. Next xray interval should be around 6 weeks after surgery. -DVT PPx: TEDs/SCDs, Continue Aspirin and Plavix -PT/OT; ok for OOB w/ assistance, WBAT LLE transfer to Rehab (2) Hypertensive urgency: Plan: Likely situational due to pain BP improved Continue metoprolol, valsartan Monitor (3) Leukocytosis: Plan: No obvious signs of infection Possibly reactive resolved Urinary Retention Bladder scan as needed Place desai if recurrence of retention Continue tamsulosin (4) Hyponatremia: Plan: Chronic Hyponatremia Sodium 129>>127>126>125>127--> 130 Poor oral intake TSH: normal Nephro on board Lasix decreased to 40mg BID and salt tablet 15mg BID continue fluid restriction 1500ml continue to hold jardiance, metformin, ARB repeat basic metabolic panel in 1 week ff up with custom home installer in 2 weeks Aspiration, Dysphagia --CXR:No acute cardiopulmonary disease. 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 (10) DVT prophylaxis: Plan: SCDs, Teds, Aspirin, Plavix Disposition transition to Rehab today ff up with PCP in 1 week ff up with Ortho in 1 week ff up with Nephro in 2 weeks Admission and Anticipated Discharge Date Admission Date: March 19, 2022 Subjective ff up for hip surgery, hyponatremia, etc seen resting in bed, comfortable states he feels fine overall no chest pain, dyspnea, palpitations, dizziness no abdominal pain, nausea/vomiting, fever/chills no headache denies other symptoms states he is ready and is agreeable for discharge today Review of Systems Review of Systems: all noted and negative except for above Physical Exam Physical Exam: General- oriented x 2, not in distress, speaks in sentences with no effort or accessory muscle use Eyes- anicteric Neck- no JVD Lungs- clear breath sounds bilaterally, no rales/wheezes Heart- normal rate, regular rhythm; no murmurs Abdomen- normal bowel sounds, nondistended, soft, nontender Extremities- no pretibial edema, no calf tenderness Left hip: dressing in place-no bleeding or discharge no edema, hematoma Neuro- alert, oriented x 3; no gross focal neurologic deficits Skin- warm & dry Results & Data Results & Data ([facility]) Vital Signs (Past 12 Hours) Vital Signs Temp Pulse Pulse Resp BP BP Pulse Ox 03/29/22 15:05 95 H 03/29/22 11:23 36.6 C 78 15 103/67 95 03/29/22 07:38 36.4 C L 75 18 149/81 H 94 03/29/22 06:10 66 03/29/22 04:18 36.5 C 71 20 105/66 95 all noted and reviewed including below
[2022-03-29] MEDS ORDERED: COVID-19 VACC, TRIS(PFIZER)/PF 30 MCG/0.3 ML VIAL IM ONE (16:00)
[2022-03-29] MEDS: ACETAMINOPHEN 325 MG TAB PO PRN (16:49)
[2022-03-29] MEDS ORDERED: INSULIN GLARGINE SOLOSTAR 100 UNITS/ML 3 ML PEN SC SCH (21:00)
[2022-03-29] MEDS: TAMSULOSIN HCL 0.4 MG CAP PO SCH (21:07)
[2022-03-29] MEDS: DAPSONE 25 MG TAB PO SCH (21:08)
[2022-03-29] MEDS: ASPIRIN 81 MG ECTAB PO SCH (21:09)
[2022-03-29] MEDS: DOCUSATE SODIUM/SENNA 50/8.6MG TAB PO SCH (21:16)
[2022-03-30] MEDS ORDERED: LORATADINE 10 MG TAB PO ONE (00:43)
[2022-03-30] MEDS: CHOLECALCIFEROL 1,000 UNITS 25 MCG TAB PO SCH (08:24)
[2022-03-30] MEDS: DULoxetine HCL 30 MG CAP PO SCH (08:25)
[2022-03-30] MEDS: UREA (UREA-NA) 15 GM PACK PO SCH (08:25)
[2022-03-30] MEDS: CLOPIDOGREL BISULFATE 75 MG TAB PO SCH (08:25)
[2022-03-30] MEDS: ATORVASTATIN 40 MG TAB PO SCH (08:25)
[2022-03-30] MEDS: FUROSEMIDE 40 MG TAB PO SCH (08:25)
[2022-03-30] MEDS: PANTOprazole 40 MG TAB PO SCH (08:26)
[2022-03-30] MEDS: POTASSIUM CHLORIDE CRTAB 20 MEQ TABCR PO SCH (08:26)
[2022-03-30] MEDS: DOFETILIDE 125 MCG CAPSULE PO SCH (08:26)
[2022-03-30] MEDS: VALSARTAN 80 MG TAB PO SCH (08:27)
[2022-03-30] MEDS: METOPROLOL SUCC 50MG EXT REL TAB PO SCH (08:27)
--- NOTE | 2022-03-30 08:28 | Hospitalist Progress Note ---
Date of Service March 30, 2022 Assessment & Plan (1) Closed intertrochanteric fracture of left femur: Plan: per Dr. Grissom's notes with addendum: Patient presents with hip pain after a mechanical fall. Closed intertrochanteric fracture of the left femur Hip X ray:Impacted and angulated intertrochanteric fracture of the left proximal femur as above. S/P Left intratrochanteric hip fracture closed reduction and long cephalomedullary nail fixation (Left)by on 03/20/22 Fall precautions Incentive spirometry Pin control PT/OT when appropriate Appreciate Orthopedics Input Leukocytosis likely reactive WBAT left lower extremity DVT Px:SCDs, Teds, On Aspirin, Plavix Needs rehab placement Needs follow-up with orthopedics upon discharge 03/30: denies hip pain continue PT/OT, DVT prophylaxis per Ortho MD Dr. Paras Barr: -Continue current pain regimen and attempt at mobilization -Maintain dressings, ok for daily dressing changes prn starting on POD 3 -Chetna should be removed at week 23 after a wound check. Next xray interval should be around 6 weeks after surgery. -DVT PPx: TEDs/SCDs, Continue Aspirin and Plavix -PT/OT; ok for OOB w/ assistance, WBAT LLE transfer to Rehab (2) Hypertensive urgency: Plan: Likely situational due to pain BP improved Continue metoprolol, valsartan Monitor (3) Leukocytosis: Plan: No obvious signs of infection Possibly reactive resolved Urinary Retention Bladder scan as needed Place desai if recurrence of retention Continue tamsulosin (4) Hyponatremia: Plan: Chronic Hyponatremia Sodium 129>>127>126>125>127--> 130 Poor oral intake TSH: normal Nephro on board Lasix decreased to 40mg BID and salt tablet 15mg BID continue fluid restriction 1500ml continue to hold jardiance, metformin, ARB repeat basic metabolic panel in 1 week ff up with ship engines operating engineer in 2 weeks Aspiration, Dysphagia --CXR:No acute cardiopulmonary disease. 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 (10) DVT prophylaxis: Plan: SCDs, Teds, Aspirin, Plavix Disposition transition to Rehab today ff up with PCP in 1 week ff up with Ortho in 1 week ff up with Nephro in 2 weeks Admission and Anticipated Discharge Date Admission Date: March 19, 2022 Subjective ff up for s/p hip surgery, etc seen resting in bed, sitting up having breakfast comfortable states he feels fine overall no chest pain, dyspnea, palpitations, dizziness no hip pain no abdominal pain, nausea/vomiting no other symptoms states he is ready and is agreeable for discharge today Review of Systems Review of Systems: all noted and negative except for above Physical Exam Physical Exam: General- oriented x 3, not in distress, speaks in sentences with no effort or accessory muscle use Eyes- anicteric Neck- no JVD Lungs- clear breath sounds bilaterally, no rales/wheezes Heart- normal rate, regular rhythm; no murmurs Abdomen- normal bowel sounds, nondistended, soft, nontender Extremities- no pretibial edema, no calf tenderness L hip: dressing in place, no bleeding or discharge No edema, hematoma, erythema Neuro- alert, oriented x 3; no gross focal neurologic deficits Skin- warm & dry Results & Data Results & Data ([facility]) Vital Signs (Past 12 Hours) Vital Signs Temp Pulse Pulse Resp BP Pulse Ox 03/30/22 08:00 36.7 C 92 H 16 125/82 93 03/30/22 03:00 36.7 C 96 H 16 128/71 90 03/29/22 23:00 36.7 C 72 16 134/67 97 03/29/22 22:24 100 H all noted and reviewed including below
[2022-03-30] MEDS: INSULIN ASPART PER UNIT SC SCH (08:35)
--- NOTE | 2022-03-30 08:41 | Discharge Summary ---
Date of Service March 30, 2022 Admission HPI Per Admitting Provider 77-year-old male with PMH DM type II, diabetic neuropathy, dyslipidemia, paroxysmal atrial fibrillation s/p watchman device, CAD, HTN, history of non- Hodgkin's lymphoma, dermatitis herpetiformis, and other problems listed below who presents to the ED for evaluation of fall and left hip pain. Patient reports that he was trying to get his walker out from his truck when he slipped and fell onto his left hip. Patient denies loss of consciousness or striking his head. Patient reports he otherwise has been feeling well recently. He continues to struggle with chronic gait instability. No episodes of chest pain or shortness of breath. Denies lightheadedness, dizziness, diaphoresis, syncopal events. No abdominal pain, nausea, vomiting, diarrhea. Denies any other recent illnesses, fevers, chills. No urinary symptoms. In the ED, patient is found to have impacted and angulated intertrochanteric fracture of the left proximal femur. Admission Exam Per Admitting Provider General Appearance:Moderately built and nourished, no apparent distress Head: normocephalic, Atraumatic Eyes: normal inspection, EOMI Neck: supple, Trachea midline Respiratory/Chest: Normal breath sounds, CTA, No accessory muscle use Cardiovascular: S1, S2, No murmur Abdomen/GI:Soft, Non tender, Bowel sounds present Extremities/Musculoskeletal:normal inspection, Trace edema, Left UR abrasion, Left hip tender, decreased ROM Neurologic/Psych:AAOX3, grossly no focal neurological deficits Skin: normal color, warm Principal Diagnosis CLOSED INTERTROCHANTERIC FRACTURE OF THE LEFT FEMUR STATUS POST CLOSE REDUCTION, NAIL FIXATION, 03/20/2022 HYPONATREMIA ASPIRATION, DYSPHAGIA Discharge Exam General- oriented x 3, not in distress, speaks in sentences with no effort or accessory muscle use Eyes- anicteric Neck- no JVD Lungs- clear breath sounds bilaterally, no rales/wheezes Heart- normal rate, regular rhythm; no murmurs Abdomen- normal bowel sounds, nondistended, soft, nontender Extremities- no pretibial edema, no calf tenderness L hip: dressing in place, no bleeding or discharge No edema, hematoma, erythema Neuro- alert, oriented x 3; no gross focal neurologic deficits Skin- warm & dry Discharge Data Allergies Allergy/AdvReac Type Severity Reaction Status Date / Time hydroxyzine Allergy Severe Anaphylaxis Verified 03/19/22 18:41 Gold Salts Allergy Intermediate hives Verified 03/19/22 18:41 losartan Allergy Intermediate hypotension Verified 03/19/22 18:41 triamcinolone Allergy Intermediate "pustules/r Verified 03/19/22 18:41 edness" Penicillins Allergy Mild RASH Verified 03/19/22 18:41 wheat Allergy Mild Rash Verified 03/19/22 18:41 Consultations 03/19/22 18:03 ED Decision to Admit Stat 03/19/22 18:18 Consult Orthopedic Surgery Routine 03/19/22 21:21 Consult Anesthesiology Routine 03/21/22 07:54 Consult Nephrology Routine Procedures Performed Operation Date: 03/20/22 08:00 Actual Procedures p Left Troch Nail(Left) - Paras Barr MD Ordered Studies 03/19/22 16:20 CT head/brain wo con Stat ACT 112: Negative or not required by law. Electronically signed by: Nicholas Manzanares M.D. 03/25/2022 9:56 AM 03/20/22 13:30 FL hip LT 2-3V Routine 03/25/22 08:48 CT head/brain wo con Urgent TECHNIQUE: Standard CT of the Brain was performed without IV contrast. A dose lowering technique was utilized adhering to the principles of ALARA. FINDINGS: Extraaxial space: There is no evidence for subdural hematoma. There are no extra-axial fluid collections. Ventricles and cisterns: The ventricles are mildly dilated bilaterally. There is no evidence for midline shift or mass effect. Parenchyma: There is no subarachnoid or intraparenchymal hemorrhage. There is no evidence for an acute infarct or cerebral edema. Old lacunar infarct is again seen within the basal ganglia on the left. There is mild cerebral cortical atrophy and decreased attenuation in the periventricular white matter representing remote small vessel disease. There are no gross mass lesions. Osseous structures: There is no evidence for an acute fracture. There is again evidence for mild bilateral ethmoid sinusitis. The remaining visualized paranasal sinuses are clear. The mastoid air cells are clear bilaterally. Soft tissues: There is no evidence for focal soft tissue swelling. IMPRESSION: 1. No acute intracerebral pathology. 2. Cerebral cortical atrophy and remote small vessel disease are again seen. 3. Mild chronic ethmoid sinusitis is also again seen. Hospital Course (1) Closed intertrochanteric fracture of left femur: per Dr. Grissom's notes with addendum: Patient presents with hip pain after a mechanical fall. Closed intertrochanteric fracture of the left femur Hip X ray:Impacted and angulated intertrochanteric fracture of the left proximal femur as above. S/P Left intratrochanteric hip fracture closed reduction and long cephalomedullary nail fixation (Left)by on 03/20/22 Fall precautions Incentive spirometry Pain control WBAT left lower extremity DVT Px:SCDs, Teds, On Aspirin, Plavix 03/30: denies hip pain continue PT/OT, DVT prophylaxis per Ortho MD Dr. Paras Barr: -Continue current pain regimen and attempt at mobilization -Maintain dressings, ok for daily dressing changes prn starting on POD 3 -Pierce should be removed at week 23 after a wound check. Next xray interval should be around 6 weeks after surgery. -DVT PPx: TEDs/SCDs, Continue Aspirin and Plavix -PT/OT; ok for OOB w/ assistance, WBAT LLE transfer to Rehab (2) Hypertensive urgency: Likely situational due to pain BP improved Continue metoprolol, valsartan Monitor (3) Leukocytosis: No obvious signs of infection Possibly reactive resolved Urinary Retention Bladder scan as needed Place desai if recurrence of retention Continue tamsulosin (4) Hyponatremia: Chronic Hyponatremia Sodium 129>>127>126>125>127--> 130 Poor oral intake TSH: normal Nephro on board Lasix decreased to 40mg BID and salt tablet 15mg BID continue fluid restriction 1500ml continue to hold jardiance, metformin, ARB repeat basic metabolic panel in 1 week ff up with marketing mgr in 2 weeks Aspiration, Dysphagia --CXR:No acute cardiopulmonary disease. Speech eval Aspiration precautions Diet changed to minced and moist, tolerating well (5) CAD (coronary artery disease): Stable Continue ASA, Plavix, statin, Metoprolol (6) History of atrial fibrillation: (7) Presence of Watchman left atrial appendage closure device: Rhythm controlled on Tikosyn, rate controlled on metoprolol Monitor (8) Diabetes mellitus type 2 in nonobese: Hgb A1c 6.3 01/2022 Hold oral agents continue Lantus and Novolog per sliding scale (9) Dermatitis herpetiformis: On Dapsone (10) DVT prophylaxis: SCDs, Teds, Aspirin, Plavix Disposition transition to Rehab today ff up with PCP in 1 week ff up with Ortho in 1 week ff up with Nephro in 2 weeks Total Time Total Time Spent Total Time Spent (In Minutes): >30 minutes Discharge Plan Discharge Items Patient Disposition: Transfer [facility] Reason For Visit: LEFT FEMUR FRACTURE Discharge Diagnosis: Left femur fracture S/p Left intratrochanteric hip fracture closed reduction and long cephalomedullary nail fixation (DOS 03/21/2022; Dr. Barr) Activity: As commented below Activity Comment: Weightbearing as tolerated, left lower extremity Lifting: Wait until after follow-up appointment Exercise/Sports: Wait until after follow-up appointment Exercise Comment: Continue physical therapy and Occupational Therapy Non-emergency contact: Primary Care Provider and Surgeon Call non-emergency contact if: you have any medication questions, your symptoms worsen, your pain is not controlled, your pain is worsening, your pain is unusual for you, your pain is concerning for you and you have a fever Follow-up/Referrals: Paras Barr MD [Surgeon] - Dianelys Mack MD, PhD [Physician] - Rosa rBooks MD [Primary Care Provider] - Diet: Carb Consistent or DM2 and Heart Healthy Fluids: 1500ml (6 cups) Diet Comment: MINCED AND MOIST DIET, ASPIRATION PRECAUTIONS PLEASE Addtl Attending Provider Instructions: PLEASE REFER TO ACCOMPANYING HOSPITAL DISCHARGE SUMMARY FOR FURTHER DETAILS. REPEAT BASIC METABOLIC PROFILE IN 1 WEEK TO CHECK SODIUM LEVEL. Orthopaedic Instructions after Hip Fracture Surgery: Please keep your wound clean and dry. Do not remove any of the chetna. Chetna were removed at your follow-up appointment with orthopedic surgery. Please continue daily dressing changes until your follow-up appointment. If there is no drainage onto the dressing for total of 24 hours, you may shower after 5 days from surgery. Allow soap and water to run over the incision, no scrubbing, and pat dry. Do not submerse (sitting in bathtub, hot tub, jacuzzi, pool, etc) the wound for at least 3 weeks. You may bear weight on your lower extremities as tolerated. Please use the walker or as instructed by physical therapy. For pain control please use Tylenol as needed. You may also have a stronger pain medication prescribed to you at discharge. You can also apply ice to the surgical site. To reduce the risk of dangerous blood clots please continue previous antiplatelet medications. Orthopedic clinic follow-up should be in 2-3 weeks after surgery for repeat x- ray. Pierce can be removed at the orthopedic follow-up. If necessary, chetan can be removed by a nurse at home or at a nursing facility upon our order. Please contact the clinic. Pending Studies at Discharge: Yes Studies:: Repeat basic metabolic profile in 1 week. Then monitor sodium level regularly. Stand-Alone Forms: My [employer], Smoking Cessation Skilled Items Patient informed of condition?: Yes DNR: Yes Discharge Level of Care: Skilled Communicable Disease: No Discharge Prognosis: Stable Lines: None Urinary Catheter: No Medications and DC Order Prescriptions: New furosemide 40 mg Tablet 40 mg PO BID17 30 Days Qty: 30 RF: 0 sennosides-docusate sodium [Senokot-S] 8.6-50 mg Tablet 2 tab PO HS 30 Days Qty: 60 RF: 0 potassium chloride 20 mEq Tablet,Er Particles/Crystals 20 meq PO BID 30 Days Qty: 60 RF: 0 cholecalciferol (vitamin D3) 25 mcg (1,000 unit) Capsule 1,000 unit PO QAM 30 Days RF: 2 insulin glargine [Lantus Solostar U-100 Insulin] 100 unit/mL (3 mL) Insulin Pen 20 unit SC BID 30 Days Qty: 12 RF: 2 Ure-Na 15 gram Powder In Packet 15 g PO BID 30 Days RF: 0 insulin aspart U-100 [Novolog U-100 Insulin aspart] 100 unit/mL Solution 1 unit SC ACHS 30 Days Qty: 10 RF: 3 Continued acetaminophen [Acetaminophen Extra Strength] 500 mg Tablet 1,000 mg PO Q8 PRN (Reason: Fever Or Pain) RF: 0 multivitamin Tablet 1 tab PO DAILY RF: 0 betamethasone, augmented 0.05 % ointment 1 applic TOPICAL BID RF: 0 atorvastatin 40 mg tablet 40 mg PO DAILY 30 Days Qty: 30 RF: 0 buspirone 5 mg tablet 5 mg PO BID PRN (Reason: Anxiety) Qty: 10 RF: 0 metoprolol succinate [Toprol XL] 50 mg tablet extended release 24 hr 50 mg PO BID 30 Days Qty: 60 RF: 0 dofetilide 250 mcg capsule 250 mcg PO Q12 30 Days Qty: 60 RF: 0 valsartan 80 mg tablet 40 mg PO BID 30 Days Qty: 30 RF: 0 clopidogrel 75 mg tablet 75 mg PO QAM 30 Days Qty: 30 RF: 0 aspirin 81 mg Tablet,Delayed Release (Dr/Ec) 81 mg PO HS 30 Days Qty: 30 RF: 0 tamsulosin [Flomax] 0.4 mg capsule 0.4 mg PO HS 30 Days Qty: 30 RF: 0 dapsone 25 mg tablet 25 mg PO QPM 30 Days Qty: 30 RF: 0 omeprazole 20 mg capsule,delayed release(DR/EC) 20 mg PO BID 30 Days Qty: 60 RF: 0 duloxetine 30 mg capsule,delayed release(DR/EC) 30 mg PO DAILY 30 Days Qty: 30 RF: 0 Discontinued fluticasone propionate 50 mcg/actuation spray,suspension 2 spray Intranasal HS RF: 0 metformin 500 mg tablet extended release 24 hr 1,000 mg PO BID RF: 0 nitroglycerin [Nitrostat] 0.4 mg Tablet, Sublingual 1 dose Sublingual DIRECTED PRN (Reason: Angina) RF: 0 furosemide [Lasix] 20 mg Tablet 20 mg PO 2XWK RF: 0 potassium chloride 10 mEq Capsule, Extended Release 10 meq PO 2XWK RF: 0 Tradjenta 5 mg tablet 5 mg PO DAILY RF: 0 glipizide 5 mg tablet extended release 24 hr 5 mg PO DAILY RF: 0 Jardiance 10 mg tablet 10 mg PO DAILY RF: 0 Discharge Orders: Discharge Order (Routine); Ordered 03/30/22 Ordered By: Sergio Clement/Other Patient Handouts: Nutrition for Wound Healing, Managing Type 2 Diabetes Admission Data Admit Date/Time: 03/19/22 18:27 Attending Provider: Sergio Mcclure Admit Provider: Ty Grissom Primary Care Provider: Rosa Brooks Other Providers: [facility], ; Ty Grissom ; Paras Barr ; Jose Dan ; Dianelys Mack
[2022-03-30] MEDS ORDERED: INSULIN GLARGINE SOLOSTAR 100 UNITS/ML 3 ML PEN SC SCH (09:00)
== END 2022-03-30 09:50 | DRG 481 ==
LOC: ED 16:09 → SUATTDRO 18:27 → 2W 18:27

== ENCOUNTER 2022-11-30 20:51 | Observation (INO) ==
[2022-11-30 22:14] LABS: Basophils # (auto) 0.03 K/uL (0-0.2); Basophils % (auto) 0.2 %; Eosinophils # (auto) 0.01 K/uL (0-0.50); Eosinophils % (auto) 0.1 %; Hematocrit (blood only) 38.5 % (42.0-52.0); Hemoglobin 13.3 g/dl (14.0-18.0); Immature Granulocytes # (auto) 0.07 K/uL (0.01-0.20); Immature Granulocytes % (auto) 0.5 %; Lymphocytes # (auto) 0.88 K/uL (1.2-3.4); Lymphocytes % (auto) 5.7 %; Mean Corpuscular Hemoglobin 30.4 pg (25.0-34.0); Mean Corpuscular Hgb Conc 34.5 g/dL (32.0-36.0); Mean Corpuscular Volume 88.1 fL (80.0-100.0); Mean Platelet Volume 10.9 fL (9.4-12.4); Monocytes # (auto) 1.31 K/uL (0.11-0.59); Monocytes % (auto) 8.5 %; Neutrophils # (auto) 13.03 K/uL (1.40-6.50); Platelet Count 288 K/uL (130-400); RDW Coefficient of Variation 12.3 % (11.5-14.5); RDW Standard Deviation 40.2 fL (36.4-46.3); Red Blood Count 4.37 M/uL (4.70-6.10); White Blood Count 15.33 K/ul (4.8-10.8)
[2022-11-30 22:32] LABS: Albumin Globulin Ratio 1.4 (0.9-2); Bilirubin,Total 1.3 mg/dl (0.2-1.0); Calcium 9.2 mg/dl (8.5-10.1); Creatinine Clr Calc Pharmacy 42.7 ml/min; Est GFR (African American) 59.6 ml/min; Est GFR (Non-African American) 51.4 ml/min; Globulin 2.9 gm/dl (2.5-4.0); Potassium 4.3 mmol/L (3.5-5.1); Total Protein 6.9 gm/dl (6.0-8.3)
[2022-11-30 23:16] LABS: INR 1.1 (0.9-1.1); Prothrombin Time 11.3 Seconds (9.0-12.0)
[2022-11-30] MEDS ORDERED: cefTRIAXone SODIUM 2,000 MG/70 ML BAG IV STA (23:22)
[2022-11-30 23:50] LABS: Appearance Urine Turbid (Clear); Bacteria Urine Automated 1+ (Negative); Bilirubin Urine Negative (Negative); Blood Urine 3+ (Negative); Color Urine Dark Yellow; Glucose Urine UA 1+ (Negative); Ketones Urine Negative (Negative); Leukocyte Esterase Urine 3+ (Negative); Nitrite Urine Positive (Negative); Protein Urine 3+ (Negative); RBC Urine Automated >30 /hpf (0-4); Urobilinogen Urine Negative (Negative); WBC Urine Automated >30 /hpf (0-5)
--- NOTE | 2022-12-01 | Emergency Department Note ---
History of Present Illness General Chief complaint: Abdominal Pain Stated complaint: ABDOMINAL PAIN,CONSTIPATED,UTI Time Seen by Provider: 11/30/22 22:46 History of Present Illness 77-year-old male presents emergency department reportedly was in a hospital in [place] had urinary retention and was diagnosed with a urinary tract infection and had a Sarmiento catheter placed earlier today. He was brought home to this area and reportedly his daughter could not handle him at home she brought him in for placement. Per the wrapper caser the patient may have a bed at the [facility] rehab tomorrow. Patient denies any current complaints on my examination there is no nausea vomiting there is no abdominal pain there is no fever. There are no other mitigating or alleviating factors Home Medications Medication Instructions Recorded Confirmed Type acetaminophen 500 mg tablet 1,000 mg PO Q8 PRN Fever Or Pain 11/22/20 11/30/22 History (Acetaminophen Extra Strength) multivitamin 1 tab PO DAILY 11/22/20 11/30/22 History aspirin 81 mg tablet,delayed 81 mg PO HS 30 days #30 tabs 03/29/22 11/30/22 Rx release cholecalciferol (vitamin D3) 25 1,000 unit PO QAM 30 days 03/29/22 11/30/22 Rx mcg (1,000 unit) capsule clopidogrel 75 mg tablet 75 mg PO QAM 30 days #30 tabs 03/29/22 11/30/22 Rx dofetilide 250 mcg capsule 250 mcg PO Q12 atrial fibrillation 03/29/22 11/30/22 Rx 30 days #60 caps duloxetine 30 mg capsule,delayed 30 mg PO DAILY 30 days #30 caps 03/29/22 11/30/22 Rx release metoprolol succinate 50 mg 50 mg PO BID 30 days #60 tabs 03/29/22 11/30/22 Rx tablet,extended release 24 hr (Toprol XL) furosemide 40 mg tablet (Lasix) 40 mg PO QAM 11/30/22 11/30/22 History insulin glargine 100 unit/mL (3 18 unit SC BID 11/30/22 11/30/22 History mL) subcutaneous pen (Lantus Solostar U-100 Insulin) potassium chloride 10 mEq 20 meq PO DAILY 11/30/22 11/30/22 History capsule,extended release valsartan 40 mg tablet 40 mg PO BID 11/30/22 11/30/22 History Allergies Allergy/AdvReac Type Severity Reaction Status Date / Time hydroxyzine Allergy Severe Anaphylaxis Verified 11/30/22 22:54 Gold Salts Allergy Intermediate hives Verified 11/30/22 22:54 losartan Allergy Intermediate hypotension Verified 11/30/22 22:54 Penicillins Allergy Intermediate RASH Verified 11/30/22 22:54 triamcinolone Allergy Intermediate "pustules/r Verified 11/30/22 22:54 edness" wheat Allergy Intermediate Rash Verified 11/30/22 22:54 Past Med/Surg History Medical History Atrial fibrillation Autoimmune hemolytic anemia CAD (coronary artery disease) CAD (coronary artery disease) Chronic coronary heart disease patient with history of complex interventions with progression/in stent restenosis within 6 months of stopping clopidogrel after an LAD intervention plus new lesions in the same vessel and therefore he is on chronic dual anti-platelet therapy. 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 " On 07/25/11 18:09 Dianelys Mack wrote "with neuropathy " On 07/25/11 18:09 Dianelys Mack wrote "with neuropathy " Diverticular disease of colon GERD (gastroesophageal reflux disease) Hearing deficit History of adenomatous polyp of colon History of ITP History of non-Hodgkin's lymphoma Hyperlipidemia Hypertension Myocardial infarction 2013, 2016 Osteoarthritis Paroxysmal atrial fibrillation pulmonary vein isolation procedure 05/06/2018 with cryoablation Presence of Watchman left atrial appendage closure device Recurrent falls Stroke-like symptoms Thalamic stroke Thrombocytopenia Surgical History History of arthroscopy of left shoulder History of bilateral cataract extraction History of cardiac cath 2013, 2016, 09/12/2018 History of cardiac radiofrequency ablation 04/2018 @ [facility] History of colonoscopy History of esophagogastroduodenoscopy (EGD) History of heart artery stent 2013 x1, 2017x1, 09/12/2018 x2(drug eluting stent @ [facility]) History of tonsillectomy and adenoidectomy History of tooth extraction wisdom teeth History of umbilical hernia repair Hx of exploratory laparotomy Presence of Watchman left atrial appendage closure [place] [facility] [place] post cholecystectomy "1994" Status post pericardiocentesis Status post vasectomy Family History Sister Family history of diabetes mellitus Family history of reaction to anesthesia difficulty waking Mother Family history of diabetes mellitus Social History Smoking Status: Former smoker Tobacco Type: Cigarettes packs per day: 1; Cigarettes Per Day: 1 PPD; Second Hand Exposure: No; Hx Alcohol Use: No Hx Substance Use: No Preferred Language: Hungarian Communication Ability: Effective Substance Addiction Coordinator Required: No Beliefs That Will Affect Care: None marital status: Current Living Situation: Alone current occupation: Retired Feels Safe at Home: Yes Assistive Devices: Cane and Walker Review of Systems A total of 10 systems reviewed and were otherwise negative Physical Exam Vital Signs Vital Signs - 24 hr 11/30/22 20:57 11/30/22 22:03 11/30/22 22:03 Temperature 36.5 C Temperature Source Temporal Artery Scan Pulse Rate 110 H 102 H 102 H Pulse Rate from SpO2 Sensor 101 H Respiratory Rate 18 20 Blood Pressure 101/68 Blood Pressure Mean 79 Blood Pressure Position Sitting Pulse Oximetry 95 94 Oxygen Delivery Method Room Air Room Air Sepsis Recent Fever Within 48 Hours No Sepsis New/Unexplained Change in Mental Status N/A Sepsis Action Taken by Nursing No Action Required GENERAL: Patient is awake alert in no acute distress patient is resting comfortably and showing no signs of anxiety EYES: The conjunctivae are clear. The pupils are round and reactive. EARS, NOSE, MOUTH AND THROAT: The nose is without any evidence of any deformity. Mucous membranes are moist. Tongue is midline. NECK: The neck is nontender and supple. RESPIRATORY: Normal respiratory effort is noted there is no evidence of wheezing rhonchi or rales CARDIOVASCULAR: Regular rate and rhythm noted there no murmurs rubs or gallops normal S1 normal S2. GASTROINTESTINAL: The abdomen is soft. Abdomen is nontender. Sarmiento catheter is present draining PELVIS: The Pelvis is stable. No tenderness to palpation is noted. BACK: No midline tenderness or or step-off noted range of motion in flexion extension as well as rotation no signs of muscle spasm noted MUSCULOSKELETAL/EXTREMITIES: There is no evidence of gross deformity full range of motion is noted in the hips and shoulders. SKIN: There is no obvious evidence of any rash. There are no petechiae, pallor or cyanosis noted. NEUROLOGIC: Patient is awake alert and oriented x3 strength is symmetric Course Reevaluation(s) Reevaluation #1: Patient started on IV fluids and Rocephin. The case was discussed with the hospitalist Time: 00:00 Consultations Consultation #1: Case discussed with hospitalist for admission from [facility] Time: 00:00 Medical Decision Making Medical Records Attestation: I reviewed the patient's medical records. Home Medications Current Medication List: was personally reviewed by me Laboratory Data Attestation: I reviewed the patient's lab results. Patient has a leukocytosis and hyperglycemia 11/30/22 21:55 11/30/22 21:55 Lab Results 11/30/22 11/30/22 11/30/22 Range/Units 21:55 21:55 21:55 WBC 15.33 H (4.8-10.8) K/ul RBC 4.37 L (4.70-6.10) M/uL Hgb 13.3 L (14.0-18.0) g/dl Hct 38.5 L (42.0-52.0) % MCV 88.1 (80.0-100.0) fL MCH 30.4 (25.0-34.0) pg MCHC 34.5 (32.0-36.0) g/dL RDW Std Deviation 40.2 (36.4-46.3) fL RDW Coeff of [place] 12.3 (11.5-14.5) % Plt Count 288 (130-400) K/uL MPV 10.9 (9.4-12.4) fL Immature Gran % (Auto) 0.5 % Neut % (Auto) 85.0 % Lymph % (Auto) 5.7 % [place] % (Auto) 8.5 % Eos % (Auto) 0.1 % Baso % (Auto) 0.2 % Neut # (Auto) 13.03 H (1.40-6.50) K/uL Lymph # (Auto) 0.88 L (1.2-3.4) K/uL [place] # (Auto) 1.31 H (0.11-0.59) K/uL Eos # (Auto) 0.01 (0-0.50) K/uL Baso # (Auto) 0.03 (0-0.2) K/uL Immature Gran # (Auto) 0.07 (0.01-0.20) K/uL PT 11.3 (9.0-12.0) Seconds INR 1.1 (0.9-1.1) Sodium 131 L (136-145) mmol/L Potassium 4.3 (3.5-5.1) mmol/L Chloride 95 L (98-107) mmol/L Carbon Dioxide 30 (21-32) mmol/L Anion Gap 6 (3-11) BUN 17 (6-23) mg/dl Creatinine 1.31 (0.6-1.4) mg/dl Est Cr Clr Drug Dosing 42.7 ml/min Est GFR ( Amer) 59.6 ml/min Est GFR (Non-Af Amer) 51.4 ml/min BUN/Creatinine Ratio 13.0 (10-20) Glucose 242 H (70-99(Fasting)) mg/dl Calcium 9.2 (8.5-10.1) mg/dl Total Bilirubin 1.3 H (0.2-1.0) mg/dl AST 18 (13-39) U/L ALT 13 (7-52) U/L Alkaline Phosphatase 100 (34-104) U/L Total Protein 6.9 (6.0-8.3) gm/dl Albumin 4.0 (3.4-5.0) gm/dl Globulin 2.9 (2.5-4.0) gm/dl Albumin/Globulin Ratio 1.4 (0.9-2) Lipase 5 L (11-82) U/L ECG Data Attestation: I personally reviewed and interpreted this ECG as follows: Additional Comments: EKG interpreted by me ,sinus tachycardia rate of [address]-T change no obvious ST segment elevation or depression normal axis, no prior for comparison MDM Narrative Medical decision making differential diagnosis includes urinary tract infection, dehydration, electrolyte abnormality, deconditioning External medical records were reviewed by me Case was discussed with the hospitalist for admission Patient was started on IV Rocephin Per case management the patient has been accepted to a rehab tomorrow morning Impression & Plan Acute UTI (urinary tract infection), Weakness Discharge Plan Visit Data Chief Complaint: Abdominal Pain Stated Complaint: ABDOMINAL PAIN,CONSTIPATED,UTI ED Provider: Ricky Belcher Discharge Problem: Acute UTI (urinary tract infection), Weakness Patient Disposition: Admitted As Inpatient Forms Stand Alone Forms: [facility] Prescriptions Prescriptions: No Action acetaminophen [Acetaminophen Extra Strength] 500 mg Tablet 1,000 mg PO Q8 PRN (Reason: Fever Or Pain) multivitamin Tablet 1 tab PO DAILY cholecalciferol (vitamin D3) 25 mcg (1,000 unit) Capsule 1,000 unit PO QAM 30 Days 2RF metoprolol succinate [Toprol XL] 50 mg tablet extended release 24 hr 50 mg PO BID 30 Days Qty: 60 0RF dofetilide 250 mcg capsule 250 mcg PO Q12 30 Days Qty: 60 0RF clopidogrel 75 mg tablet 75 mg PO QAM 30 Days Qty: 30 0RF aspirin 81 mg Tablet,Delayed Release (Dr/Ec) 81 mg PO HS 30 Days Qty: 30 0RF duloxetine 30 mg capsule,delayed release(DR/EC) 30 mg PO DAILY 30 Days Qty: 30 0RF valsartan 40 mg Tablet 40 mg PO BID insulin glargine [Lantus Solostar U-100 Insulin] 100 unit/mL (3 mL) insulin pen 18 unit SC BID furosemide [Lasix] 40 mg Tablet 40 mg PO QAM potassium chloride 10 mEq Capsule, Extended Release 20 meq PO DAILY Referrals Referrals: Rosa Brooks MD [Primary Care Provider] -
[2022-12-01] MEDS ORDERED: SODIUM CHLORIDE 0.9% 1000ML 1,000 ML IV ONE ×3 (00:03→02:00)
--- NOTE | 2022-12-01 00:06 | History & Physical Report ---
Date of Service December 01, 2022 Assessment & Plan (1) Severe sepsis: Plan: SIRS plus lactic acidosis Secondary to complicated UTI, recurrent disease chronic indwelling Sarmiento catheter for urinary retention hx CAD status post stenting paroxysmal AFib status post ablation status post left atrial appendage occlusion/Watchman device, patient NSR on Tikosyn l hypertension, BP on the lower side DM2 insulin requiring, well-controlled as of today's hemoglobin A1c of 6.6 history NHL status post chemotherapy, in remission chronic anemia, hemoglobin better than baseline likely secondary to hemoconcentration Constipation functional disability/ambulatory dysfunction past tobacco abuse Medical telemetry CS, Cefepime Follow lactic acid response to IVF Appropriate to hold home diuretic for now until patient euvolemic Urology consult Re: urinary retention, history indwelling Sarmiento catheter (Patient and daughter amenable to void trial.) Basal bolus insulin, ISS BG goal 1 10-1 40, carb count coverage Bowel regimen Discharge to [facility] once medically stable. Patient already with acceptance as per daughter. DVT prophylaxis. Lovenox subcu DNR Patient daughter requesting updates from providers. Sharita Bridges, contact #[phone]. Text document was generated using [employer] voice recognition software. It may contain grammatical or spelling errors. Kindly contact undersigned for clarification of any documentation item in question. History of Present Illness Chief Complaint: UTI, hematuria Primary Care Provider: Rosa Brooks MD History obtained from patient, family, and records. Medical history significant for CAD status post stenting, paroxysmal AFib status post ablation status post left atrial appendage occlusion/ Watchman device, hypertension, DM2 insulin requiring, past history dermatitis herpetiformis, history NHL status post chemotherapy, chronic anemia (baseline hemoglobin 10-11 ), ambulatory dysfunction, past tobacco abuse. Last confinement March 2022 for left femoral fracture status post surgery. Sarmiento catheter placed during admission for urinary retention. Patient discharged to rehab with Sarmiento catheter. Patient moved in with son at [place] residence after rehab discharge last April 2022. Sarmiento catheter maintained for convenience as patient's son cannot attend to patient at all times at home as per patient account. Patient seen at [facility] ER last month for urinary retention and UTI. Patient discharged on antibiotic Rx. Family had made arrangements for patient to be accepted yesterday at [facility] in [place]. Increasingly difficult for patient's son to care for patient in [place]. Patient with painful urinary retention complaints when daughter picked him up in [place] to travel to [place] yesterday morning. Bloody Sarmiento cath drainage as per daughter. Patient evaluated at [facility] ER in [place]. Given IV ciprofloxacin for UTI. Patient daughter requested for patient to be discharged from the ER as she was going to bring patient to [facility] for further evaluation. Patient complaining of constipation for 2 days. No fever, no chills, no chest pain, no SOB. MEDICAL HISTORY: As above. SURGERIES:Watchman device/left atrial appendage closure, pericardiocentesis, cholecystectomy, vasectomy. hernia repair, tonsillectomy/adenoidectomy, shoulder surgery. FAMILY HISTORY: Heart disease, breast cancer, DM PERSONAL AND SOCIAL HISTORY: Past smoker, no chronic intake of alcoholic beverages. 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 Allergies Allergy/AdvReac Type Severity Reaction Status Date / Time hydroxyzine Allergy Severe Anaphylaxis Verified 11/30/22 22:54 Gold Salts Allergy Intermediate hives Verified 11/30/22 22:54 losartan Allergy Intermediate hypotension Verified 11/30/22 22:54 Penicillins Allergy Intermediate RASH Verified 11/30/22 22:54 triamcinolone Allergy Intermediate "pustules/r Verified 11/30/22 22:54 edness" wheat Allergy Intermediate Rash Verified 11/30/22 22:54 Home Medications Medication Instructions Recorded Confirmed Type acetaminophen 500 mg tablet 1,000 mg PO Q8 PRN Fever Or Pain 11/22/20 11/30/22 History (Acetaminophen Extra Strength) multivitamin 1 tab PO DAILY 11/22/20 11/30/22 History aspirin 81 mg tablet,delayed 81 mg PO HS 30 days #30 tabs 03/29/22 11/30/22 Rx release cholecalciferol (vitamin D3) 25 1,000 unit PO QAM 30 days 03/29/22 11/30/22 Rx mcg (1,000 unit) capsule clopidogrel 75 mg tablet 75 mg PO QAM 30 days #30 tabs 03/29/22 11/30/22 Rx dofetilide 250 mcg capsule 250 mcg PO Q12 atrial fibrillation 03/29/22 11/30/22 Rx 30 days #60 caps duloxetine 30 mg capsule,delayed 30 mg PO DAILY 30 days #30 caps 03/29/22 11/30/22 Rx release metoprolol succinate 50 mg 50 mg PO BID 30 days #60 tabs 03/29/22 11/30/22 Rx tablet,extended release 24 hr (Toprol XL) furosemide 40 mg tablet (Lasix) 40 mg PO QAM 11/30/22 11/30/22 History insulin glargine 100 unit/mL (3 18 unit SC BID 11/30/22 11/30/22 History mL) subcutaneous pen (Lantus Solostar U-100 Insulin) potassium chloride 10 mEq 20 meq PO DAILY 11/30/22 11/30/22 History capsule,extended release valsartan 40 mg tablet 40 mg PO BID 11/30/22 11/30/22 History Past Med/Surg History Medical History Atrial fibrillation Autoimmune hemolytic anemia CAD (coronary artery disease) CAD (coronary artery disease) Chronic coronary heart disease patient with history of complex interventions with progression/in stent restenosis within 6 months of stopping clopidogrel after an LAD intervention plus new lesions in the same vessel and therefore he is on chronic dual anti-platelet therapy. 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 " On 07/25/11 18:09 Dianelys Mack wrote "with neuropathy " On 07/25/11 18:09 Dianelys Mack wrote "with neuropathy " Diverticular disease of colon GERD (gastroesophageal reflux disease) Hearing deficit History of adenomatous polyp of colon History of ITP History of non-Hodgkin's lymphoma Hyperlipidemia Hypertension Myocardial infarction 2013, 2016 Osteoarthritis Paroxysmal atrial fibrillation pulmonary vein isolation procedure 05/06/2018 with cryoablation Presence of Watchman left atrial appendage closure device Recurrent falls Stroke-like symptoms Thalamic stroke Thrombocytopenia Surgical History History of arthroscopy of left shoulder History of bilateral cataract extraction History of cardiac cath 2013, 2016, 09/12/2018 History of cardiac radiofrequency ablation 04/2018 @ [facility] History of colonoscopy History of esophagogastroduodenoscopy (EGD) History of heart artery stent 2013 x1, 2017x1, 09/12/2018 x2(drug eluting stent @ [facility]) History of tonsillectomy and adenoidectomy History of tooth extraction wisdom teeth History of umbilical hernia repair Hx of exploratory laparotomy Presence of Watchman left atrial appendage closure device placed 11/27/18 @ [facility] [place] Status post cholecystectomy "1994" Status post pericardiocentesis Status post vasectomy Family History Sister Family history of diabetes mellitus Family history of reaction to anesthesia difficulty waking Mother Family history of diabetes mellitus Social History Smoking Status: Former smoker Tobacco Type: Cigarettes packs per day: 1; Cigarettes Per Day: 1 PPD; Smoking End Date: 1997; Second Hand Exposure: No; Tobacco Cessation Education Requested by Patient: No Hx Alcohol Use: No Hx Substance Use: No Preferred Language: Monegasque Communication Ability: Effective Cloud Consultant Required: No Beliefs That Will Affect Care: None marital status: Current Living Situation: Family Current Living Situation Comment: Lived w/ son in [place], unable to provide care for pt. at this time current occupation: Retired Feels Safe at Home: Yes Safety Concerns: Feels Safe At This Time Assistive Devices: Glasses and Walker Review of Systems Review of Systems: As per HPI, all other systems reviewed and negative Physical Exam Physical Exam: GENERAL: Slightly uncomfortable, slightly anxious, no respiratory distress SKIN: Pallor, warm HEENT: Partial alopecia, bespectacled, pale palpebral conjunctivae, no ptosis, dry buccal mucosa NECK : Supple, no tenderness CHEST : CTA, no tenderness HEART : Tachycardic, no obvious murmurs ABDOMEN: Some distention, nontender EXTREMITIES : No LE swelling, minimal left hip tenderness, no other conspicuous deformities noted NEUROLOGIC : Coherent, no facial asymmetry, gait and stance not assessed Results & Data Results & Data ([facility]) Vital Signs (Past 12 Hours) Vital Signs Temp Pulse Resp BP Pulse Ox O2 Del Method 11/30/22 22:03 102 H 11/30/22 22:03 102 H 20 94 Room Air 11/30/22 20:57 36.5 C 110 H 18 101/68 95 Room Air Laboratory Results Laboratory Results WBC 15.33 K/ul (4.8-10.8) H 11/30/22 21:55 RBC 4.37 M/uL (4.70-6.10) L 11/30/22 21:55 Hgb 13.3 g/dl (14.0-18.0) L 11/30/22 21:55 Hct 38.5 % (42.0-52.0) L 11/30/22 21:55 MCV 88.1 fL (80.0-100.0) 11/30/22 21: MCH 30.4 pg (25.0-34.0) 11/30/22 21: MCHC 34.5 g/dL (32.0-36.0) 11/30/22 21: RDW Std Deviation 40.2 fL (36.4-46.3) 11/30/22 21: RDW Coeff of [place] 12.3 % (11.5-14.5) 11/30/22 21: Plt Count 288 K/uL (130-400) 11/30/22 21: MPV 10.9 fL (9.4-12.4) 11/30/22 21: Immature Gran % (Auto) 0.5 % 11/30/22 21: Neut % (Auto) 85.0 % 11/30/22 21: Lymph % (Auto) 5.7 % 11/30/22 21: [place] % (Auto) 8.5 % 11/30/22 21: Eos % (Auto) 0.1 % 11/30/22 21: Baso % (Auto) 0.2 % 11/30/22 21: Neut # (Auto) 13.03 K/uL (1.40-6.50) H 11/30/22 21: Lymph # (Auto) 0.88 K/uL (1.2-3.4) L 11/30/22 21: [place] # (Auto) 1.31 K/uL (0.11-0.59) H 11/30/22 21:55 Eos # (Auto) 0.01 K/uL (0-0.50) 11/30/22 21:55 Baso # (Auto) 0.03 K/uL (0-0.2) 11/30/22 21: Immature Gran # (Auto) 0.07 K/uL (0.01-0.20) 11/30/22 21:55 PT 11.3 Seconds (9.0-12.0) 11/30/22 21:55 INR 1.1 (0.9-1.1) 11/30/22 21:55 Sodium 131 mmol/L (136-145) L 11/30/22 21:55 Potassium 4.3 mmol/L (3.5-5.1) 11/30/22 21:55 Chloride 95 mmol/L (98-107) L 11/30/22 21:55 Carbon Dioxide 30 mmol/L (21-32) 11/30/22 21:55 Anion Gap 6 (3-11) 11/30/22 21:55 BUN 17 mg/dl (6-23) 11/30/22 21:55 Creatinine 1.31 mg/dl (0.6-1.4) 11/30/22 21:55 Est Cr Clr Drug Dosing 42.7 ml/min 11/30/22 21:55 Est GFR ( Amer) 59.6 ml/min 11/30/22 21:55 Est GFR (Non-Af Amer) 51.4 ml/min 11/30/22 21:55 BUN/Creatinine Ratio 13.0 (10-20) 11/30/22 21:55 Glucose 242 mg/dl (70-99(Fasting)) H 11/30/22 21:55 Calcium 9.2 mg/dl (8.5-10.1) 11/30/22 21:55 Total Bilirubin 1.3 mg/dl (0.2-1.0) H 11/30/22 21:55 AST 18 U/L (13-39) 11/30/22 21:55 ALT 13 U/L (7-52) 11/30/22 21:55 Alkaline Phosphatase 100 U/L (34-104) 11/30/22 21:55 Total Protein 6.9 gm/dl (6.0-8.3) 11/30/22 21:55 Albumin 4.0 gm/dl (3.4-5.0) 11/30/22 21:55 Globulin 2.9 gm/dl (2.5-4.0) 11/30/22 21:55 Albumin/Globulin Ratio 1.4 (0.9-2) 11/30/22 21:55 Lipase 5 U/L (11-82) L 11/30/22 21:55 SARS-CoV-2, RNA, NAAT NEGATIVE (NEGATIVE) 11/30/22 23:36 Diagnostic Findings EKG as per my interpretation :Rate 105, sinus tachycardia, LAD, LAFB, RBBB, T wave abnormalities inferior leads CT abdomen pelvis initial read: Increased bilateral perinephric stranding may represent pyelonephritis. No hydronephrosis or urolithiasis. Bladder wall thickening and stranding of the surrounding fat suggesting cystitis. Linear hyperdensities in the bladder may represent calcifications. Sarmiento catheter balloon in the urinary bladder.
[2022-12-01] MEDS ORDERED: CEFEPIME 2,000 MG/20 ML VIAL IV STA (00:12)
[2022-12-01 00:43] LABS: Magnesium 1.7 mg/dl (1.7-2.4)
[2022-12-01] MEDS ORDERED: DOCUSATE SODIUM/SENNA 50/8.6MG TAB PO STA (00:55)
[2022-12-01 00:56] LABS: Estimated Average Glucose 143 mg/dl; Hemoglobin A1C 6.6 % (4.5-5.6)
[2022-12-01] MEDS ORDERED: GLUCAGON FOR INJ 1 MG VIAL SQ PRN (03:01)
[2022-12-01] MEDS ORDERED: traMADol HCL 50 MG TABLET PO PRN (03:01)
[2022-12-01] MEDS ORDERED: DEXTROSE 50% 50 ML SYRINGE IV PRN (03:01)
[2022-12-01] MEDS ORDERED: GLUCOSE 40% GEL 15 GM TUBE PO PRN (03:01)
[2022-12-01] MEDS ORDERED: GLUCOSE 10 TAB/TUBE PO PRN (03:01)
[2022-12-01] MEDS ORDERED: POLYETHYLENE (MIRALAX) 17 GM PACK PO STA (03:01)
[2022-12-01] MEDS ORDERED: ACETAMINOPHEN 325 MG TAB PO PRN (03:01)
[2022-12-01] MEDS ORDERED: CARBOHYDRATES FOR HYPOGLYCEMIA PO PRN (03:01)
[2022-12-01] MEDS ORDERED: PROMETHAZINE HCL 12.5 MG in SODIUM CHLORIDE 0.9% 50 ML IV PRN (03:01)
[2022-12-01] MEDS: INSULIN ASPART PER UNIT CHARGE SC SCH ×5 (03:25→20:59)
[2022-12-01] MEDS: LANTUS PER UNIT CHARGE SQ SCH ×2 (03:25→08:25)
[2022-12-01] MEDS: DOFETILIDE 125 MCG CAPSULE PO SCH ×3 (03:41→20:02)
[2022-12-01 04:53] LABS: Basophils # (auto) 0.05 K/uL (0-0.2); Basophils % (auto) 0.4 %; Eosinophils % (auto) 2.7 %; Hemoglobin 11.5 g/dl (14.0-18.0); Immature Granulocytes # (auto) 0.05 K/uL (0.01-0.20); Immature Granulocytes % (auto) 0.4 %; Lymphocytes # (auto) 1.56 K/uL (1.2-3.4); Lymphocytes % (auto) 13.8 %; Mean Corpuscular Hemoglobin 30.5 pg (25.0-34.0); Mean Corpuscular Hgb Conc 34.8 g/dL (32.0-36.0); Mean Corpuscular Volume 87.5 fL (80.0-100.0); Mean Platelet Volume 10.9 fL (9.4-12.4); Neutrophils # (auto) 7.64 K/uL (1.40-6.50); Neutrophils % (auto) 67.7 %; Platelet Count 235 K/uL (130-400); RDW Coefficient of Variation 12.5 % (11.5-14.5); RDW Standard Deviation 39.9 fL (36.4-46.3); Red Blood Count 3.77 M/uL (4.70-6.10)
[2022-12-01 05:12] LABS: BUN Creatinine Ratio 14.3 (10-20); Calcium 8.3 mg/dl (8.5-10.1); Est GFR (Non-African American) 62.1 ml/min; Potassium 3.7 mmol/L (3.5-5.1)
--- NOTE | 2022-12-01 08:21 | CT Scan Report ---
CT OF THE ABDOMEN AND PELVIS WITHOUT CONTRAST CLINICAL HISTORY: Painful hematuria. COMPARISON STUDY: CT of the abdomen and pelvis June 13, 2021. TECHNIQUE: Axial images of the abdomen and pelvis were obtained without IV contrast. Images were revi ewed in the axial, sagittal, and coronal planes. Automated exposure control was utilized for the jorge a dy. A dose lowering technique was utilized adhering to the principles of ALARA. FINDINGS: A few subpleural right lower lobe and right middle lobe nodules remain unchanged from earli er exams. These are benign given stability. No pneumatosis, free air or portal venous gas is present. There is cardiomegaly. Evaluation of the abdomen and pelvis is suboptimal on this unenhanced exam. T here is symmetric bilateral perinephric stranding. This is relatively similar to prior CT. No renal f luid collection is identified. No renal, ureteral or bladder calculi are present. There is no hydrone phrosis or hydroureter. A Sarmiento balloon within the bladder is noted. Moderate bladder wall thickening with adjacent stranding is present. Bladder is decompressed linear hyperdensities within the bladder favor calcifications. There is no biliary ductal dilatation status post cholecystectomy. Spleen, adr enal glands and pancreas are unremarkable. There is no evidence for a bowel obstruction. Colonic dive rticulosis without evidence for acute diverticulitis. Moderate amount stool within the rectum. There is no lymphadenopathy. No fluid collection is present. There are no acute fractures. Left femoral int ernal fixation is noted. IMPRESSION: 1. No urinary calculi or hydronephrosis. Nonspecific moderate bladder wall thickening with adjacent s tranding. This could be correlated with urinalysis and cystoscopy as indicated. A Sarmiento balloon withi n the bladder. Linear calcifications within the bladder. 2. Symmetric bilateral perinephric stranding. This is relatively similar to prior exam and of doubtfu l significance although could be correlated with urinalysis. 3. No bowel obstruction. Colonic diverticulosis. No evidence for acute diverticulitis. ACT 112: Negative or not required by law. Electronically signed by: Len Simons M.D. 12/01/2022 8:18 AM
[2022-12-01] MEDS: METOPROLOL SUCC 50MG EXT REL TAB PO SCH ×2 (08:25→20:02)
[2022-12-01] MEDS: DOCUSATE SODIUM/SENNA 50/8.6MG TAB PO SCH (08:26)
[2022-12-01] MEDS: VALSARTAN 80 MG TAB PO SCH ×2 (08:26→20:02)
[2022-12-01] MEDS: MULTIVITAMIN TAB PO SCH (08:26)
[2022-12-01] MEDS: DULoxetine HCL 30 MG CAP PO SCH (08:26)
[2022-12-01] MEDS: ENOXAPARIN INJ 40 MG/0.4 ML SYR SQ SCH (08:57)
[2022-12-01] MEDS: CLOPIDOGREL BISULFATE 75 MG TAB PO SCH (08:57)
--- NOTE | 2022-12-01 09:58 | Electrocardiogram Report ---
Test Reason : Blood Pressure : / mmHG Vent. Rate : 102 BPM Atrial Rate : 102 BPM P-R Int : 192 ms QRS Dur : 128 ms QT Int : 414 ms P-R-T Axes : -56 -20 030 degrees QTc Int : 539 ms Sinus tachycardia Right bundle branch block Abnormal ECG When compared with ECG of 22-MAR-2022 18:47, Right bundle branch block is now Present Confirmed by Kevin Cramer ([id number]) on 12/01/2022 9:58:40 AM Referred By: REFERRED SELF Confirmed By:Kevin Cramer
[2022-12-01] MEDS: POLYETHYLENE (MIRALAX) 17 GM PACK PO SCH (11:00)
[2022-12-01] MEDS: CEFEPIME 1,000 MG in SYRINGE 0 ML IV SCH (13:29)
--- NOTE | 2022-12-01 13:49 | Hospitalist Progress Note ---
Date of Service December 01, 2022 Assessment & Plan (1) Acute UTI (urinary tract infection): (2) Severe sepsis: Plan 77-year-old male with PMH of CAD status post stenting, paroxysmal A-fib status post ablation/left atrial appendage occlusion = Watchman device, HTN, DM 2 insulin requiring, dermatitis herpetiformis, NHL status post chemotherapy, chronic anemia [baseline hemoglobin of 10-11], ambulatory dysfunction and past tobacco abuse presented to the ED 11/30 with complaint of lower belly pain. Patient was admitted last March 2022 for left femoral fracture when he received surgery and also Sarmiento catheter was placed during admission for urinary retention, later on it was maintained for convenience as patient's son cannot attend the patient at all times at home. Pt was living w/ his son at [place]. Per patient's daughter, with his current lower belly pain he was found to have blockage of Sarmiento catheter (in a hospital enroute to [place] from [place]) which was exchanged. Patient was also seen at [facility] ER last month for urinary retention and UTI and was discharged on antibiotic treatment. He is being managed for the following: Severe sepsis POA: Lactate/WBC/heart rate elevated at presentation Catheter associated UTI Chronic indwelling Sarmiento catheter for urinary retention Patient had symptom of lower belly pain and Sarmiento catheter blockage prior to arrival. Patient received Sarmiento catheter exchange and a dose of IV ciprofloxacin at different hospital. Admitting CTAP: Nonspecific moderate bladder wall thickening with adjacent stranding Lactic acid normalized. WBC trending down, patient afebrile, reports improvement in his belly pain. 11/30 blood and urine culture: Pending Continue with cefepime 12/01 Voiding trial, Flomax added, if still with urinary retention, consult urology. Constipation: Patient reports not moving bowel since last 2 to 3 days, will use bowel regimen, patient with better appetite today and reports improvement in his lower belly pain which was likely secondary to his UTI. We will continue to follow. Other chronic medical conditions: CAD status post stenting, paroxysmal A-fib status post ablation/left atrial appendage occlusion = Watchman device: Continue with Tikosyn HTN, HLD: Continue with home meds DM2 insulin requiring: A1c 6.6, sliding scale insulin. NHL status postchemotherapy, in remission Chronic anemia, around baseline Functional disability/ambulatory dysfunction: Family had made arrangements for patient to be accepted 11/30 at [facility] in [place]. Past tobacco abuse Chronic hyponatremia: monitor. Disposition: PT/OT, CM to assist with DC planning, likely to [facility] once medically stable. DVT prophylaxis: Lovenox subcu DNR/DNI Sharita Bridges [patient's daughter, ] Admission and Anticipated Discharge Date Admission Date: December 01, 2022 Subjective Patient seen and examined at bedside as a follow-up of severe sepsis POA, complicated UTI. Patient was lying in bed, on room air, NAD, reports being able to eat okay, has not moved bowels since last several days and would like bowel regimen, is oriented x3, reports feeling tired and weak, denies headache or dizziness or chest pain, reports improvement in his lower belly pain, patient's daughter Sharita at bedside who was also updated on the plan of care who voiced understanding and was agreeable to the plan of care. Physical Exam Physical Exam: GENERAL: awake. NAD, on RA. appears tired/weak/frail/ill. HEENT: No pallor, no icterus. Pupils equal, round and reactive to light. Oral mucosa moist. NECK: No JVD, no neck masses. HEART: S1 and S2 heard. Regular rate and rhythm. No murmur, no gallop. RESPIRATORY SYSTEM: Normal AP diameter. No accessory muscle use. No wheezing, no crackles. ABDOMEN: Soft, bowel sounds present, nontender, no distention. CENTRAL NERVOUS SYSTEM: No facial droop. Speech is clear. Obeys simple commands. Moves extremities. EXTREMITIES: No edema, no erythema seen. Results & Data Results & Data ([facility]) Vital Signs (Past 12 Hours) Vital Signs Temp Pulse Pulse Resp BP Pulse Ox Pulse Ox 12/01/22 10:56 56 L 12/01/22 07:32 36.6 C 61 18 121/65 96 12/01/22 03:21 59 L 12/01/22 03:01 36.4 C L 54 L 16 129/72 94 12/01/22 03:01 94 O2 Del Method O2 Del Method 12/01/22 10:56 12/01/22 07:32 Room Air 12/01/22 03:21 12/01/22 03:01 Room Air 12/01/22 03:01 Room Air
[2022-12-01] MEDS: TAMSULOSIN HCL 0.4 MG CAP PO SCH (13:58)
[2022-12-01] MEDS: ASPIRIN 81 MG ECTAB PO SCH (20:02)
[2022-12-02] MEDS: CEFEPIME 1,000 MG in SYRINGE 0 ML IV SCH ×2 (01:36→13:25)
[2022-12-02 07:33] LABS: Hematocrit (blood only) 34.1 % (42.0-52.0); Hemoglobin 11.9 g/dl (14.0-18.0); Mean Corpuscular Hemoglobin 30.4 pg (25.0-34.0); Mean Corpuscular Hgb Conc 34.9 g/dL (32.0-36.0); Mean Corpuscular Volume 87.2 fL (80.0-100.0); Platelet Count 235 K/uL (130-400); RDW Coefficient of Variation 12.3 % (11.5-14.5); RDW Standard Deviation 39.3 fL (36.4-46.3); Red Blood Count 3.91 M/uL (4.70-6.10); White Blood Count 10.19 K/ul (4.8-10.8)
[2022-12-02 08:02] LABS: BUN Creatinine Ratio 10.7 (10-20); Calcium 9.1 mg/dl (8.5-10.1); Creatinine Clr Calc Pharmacy 54.4 ml/min; Est GFR (African American) 79.7 ml/min; Est GFR (Non-African American) 68.8 ml/min; Magnesium 1.9 mg/dl (1.7-2.4); Phosphorus 3.1 mg/dl (2.5-4.9); Potassium 3.6 mmol/L (3.5-5.1)
[2022-12-02] MEDS: DOFETILIDE 125 MCG CAPSULE PO SCH ×2 (08:10→21:12)
[2022-12-02] MEDS: VALSARTAN 80 MG TAB PO SCH ×2 (08:10→21:11)
[2022-12-02] MEDS: DULoxetine HCL 30 MG CAP PO SCH (08:11)
[2022-12-02] MEDS: MULTIVITAMIN TAB PO SCH (08:11)
[2022-12-02] MEDS: METOPROLOL SUCC 50MG EXT REL TAB PO SCH ×2 (08:11→21:11)
[2022-12-02] MEDS: TAMSULOSIN HCL 0.4 MG CAP PO SCH (08:11)
[2022-12-02] MEDS: CLOPIDOGREL BISULFATE 75 MG TAB PO SCH (08:11)
[2022-12-02] MEDS: POLYETHYLENE (MIRALAX) 17 GM PACK PO SCH (08:12)
[2022-12-02] MEDS: ENOXAPARIN INJ 40 MG/0.4 ML SYR SQ SCH (08:12)
[2022-12-02] MEDS: DOCUSATE SODIUM/SENNA 50/8.6MG TAB PO SCH (08:12)
[2022-12-02] MEDS: LANTUS PER UNIT CHARGE SQ SCH ×2 (08:19→21:22)
[2022-12-02] MEDS: INSULIN ASPART PER UNIT CHARGE SC SCH ×4 (08:19→21:21)
--- NOTE | 2022-12-02 15:41 | Hospitalist Progress Note ---
Date of Service December 02, 2022 Assessment & Plan (1) Acute UTI (urinary tract infection): (2) Severe sepsis: Plan 77-year-old male with PMH of CAD status post stenting, paroxysmal A-fib status post ablation/left atrial appendage occlusion = Watchman device, HTN, DM 2 insulin requiring, dermatitis herpetiformis, NHL status post chemotherapy, chronic anemia [baseline hemoglobin of 10-11], ambulatory dysfunction and past tobacco abuse presented to the ED 11/30 with complaint of lower belly pain. Patient was admitted last March 2022 for left femoral fracture when he received surgery and also Sarmiento catheter was placed during admission for urinary retention, later on it was maintained for convenience as patient's son cannot attend the patient at all times at home. Pt was living w/ his son at [place]. Per patient's daughter, with his current lower belly pain he was found to have blockage of Sarmiento catheter (in a hospital enroute to [place] from [place]) which was exchanged. Patient was also seen at [facility] ER last month for urinary retention and UTI and was discharged on antibiotic treatment. He is being managed for the following: Severe sepsis POA: Lactate/WBC/heart rate elevated at presentation Catheter associated UTI Chronic indwelling Sarmiento catheter for urinary retention Patient had symptom of lower belly pain and Sarmiento catheter blockage prior to arrival. Patient received Sarmiento catheter exchange and a dose of IV ciprofloxacin at different hospital. Admitting CTAP: Nonspecific moderate bladder wall thickening with adjacent stranding Lactic acid normalized. WBC trending down, patient afebrile, reports no more lower belly pain 11/30 blood and urine culture: Follow final culture results Continue with cefepime 12/01 Voiding trial, Flomax added, if still with urinary retention, consult urology.---> Patient able to urinate/no problems per patient. 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 Other chronic medical conditions: CAD status post stenting, paroxysmal A-fib status post ablation/left atrial appendage occlusion = Watchman device: Continue with Tikosyn HTN, HLD: Continue with home meds DM2 insulin requiring: A1c 6.6, sliding scale insulin. NHL status postchemotherapy, in remission Chronic anemia, around baseline Functional disability/ambulatory dysfunction: Family had made arrangements for patient to be accepted 11/30 at [facility] in [place]. Past tobacco abuse Chronic hyponatremia: monitor. Disposition: PT/OT, CM to assist with DC planning, likely to [facility] once medically stable. Will await Urine C/S which will be out by sloane. DVT prophylaxis: Lovenox subcu DNR/DNI Sharita Bridges [patient's daughter, ] Admission and Anticipated Discharge Date Admission Date: December 01, 2022 Subjective Patient seen and examined at bedside as a follow-up of severe sepsis POA, complicated UTI. Patient was lying in bed, on room air, NAD, patient reports eating okay and moving bowels okay and also reports being able to urinate normally, reports feeling better today, denies headache or dizziness or chest pain, reports no lower belly pain, per RN, patient is eating okay and moving bowels okay and no new acute event overnight. Physical Exam Physical Exam: GENERAL: Alert and awake. NAD, on RA. HEENT: No pallor, no icterus. Pupils equal, round and reactive to light. Oral mucosa moist. NECK: No JVD, no neck masses. HEART: S1 and S2 heard. Regular rate and rhythm. No murmur, no gallop. RESPIRATORY SYSTEM: Normal AP diameter. No accessory muscle use. No wheezing, no crackles. ABDOMEN: Soft, bowel sounds present, nontender, no distention. CENTRAL NERVOUS SYSTEM: No facial droop. Speech is clear. Obeys simple commands. Moves extremities. EXTREMITIES: No edema, no erythema seen. Results & Data Results & Data ([facility]) Vital Signs (Past 12 Hours) Vital Signs Temp Pulse Pulse Resp BP Pulse Ox O2 Del Method 12/02/22 15:11 65 12/02/22 11:25 36.7 C 63 16 127/71 98 Room Air 12/02/22 07:53 36.8 C 60 16 137/75 93 Room Air 12/02/22 07:15 59 L
[2022-12-02] MEDS: ASPIRIN 81 MG ECTAB PO SCH (21:11)
[2022-12-03] MEDS: CEFEPIME 1,000 MG in SYRINGE 0 ML IV SCH (01:24)
[2022-12-03 07:47] LABS: Hematocrit (blood only) 32.3 % (42.0-52.0); Hemoglobin 11.3 g/dl (14.0-18.0); Mean Corpuscular Hemoglobin 30.4 pg (25.0-34.0); Mean Corpuscular Volume 86.8 fL (80.0-100.0); Mean Platelet Volume 10.9 fL (9.4-12.4); Platelet Count 212 K/uL (130-400); RDW Coefficient of Variation 12.2 % (11.5-14.5); RDW Standard Deviation 38.9 fL (36.4-46.3); Red Blood Count 3.72 M/uL (4.70-6.10); White Blood Count 6.81 K/ul (4.8-10.8)
[2022-12-03] MEDS: INSULIN ASPART PER UNIT CHARGE SC SCH ×2 (08:01→12:21)
[2022-12-03] MEDS: DOFETILIDE 125 MCG CAPSULE PO SCH (08:02)
[2022-12-03] MEDS: VALSARTAN 80 MG TAB PO SCH (08:02)
[2022-12-03] MEDS: LANTUS PER UNIT CHARGE SQ SCH (08:02)
[2022-12-03 08:03] LABS: BUN Creatinine Ratio 10.8 (10-20); Calcium 8.8 mg/dl (8.5-10.1); Creatinine Clr Calc Pharmacy 60.2 ml/min; Est GFR (African American) 90.2 ml/min; Est GFR (Non-African American) 77.8 ml/min; Potassium 3.5 mmol/L (3.5-5.1)
[2022-12-03] MEDS: DOCUSATE SODIUM/SENNA 50/8.6MG TAB PO SCH (08:03)
[2022-12-03] MEDS: TAMSULOSIN HCL 0.4 MG CAP PO SCH (08:03)
[2022-12-03] MEDS: MULTIVITAMIN TAB PO SCH (08:03)
[2022-12-03] MEDS: CLOPIDOGREL BISULFATE 75 MG TAB PO SCH (08:03)
[2022-12-03] MEDS: METOPROLOL SUCC 50MG EXT REL TAB PO SCH (08:03)
[2022-12-03] MEDS: POLYETHYLENE (MIRALAX) 17 GM PACK PO SCH (08:04)
[2022-12-03] MEDS: ENOXAPARIN INJ 40 MG/0.4 ML SYR SQ SCH (08:04)
[2022-12-03] MEDS: DULoxetine HCL 30 MG CAP PO SCH (08:04)
[2022-12-03] MEDS ORDERED: FUROSEMIDE 40 MG TAB PO SCH (09:00)
[2022-12-03] MEDS ORDERED: POTASSIUM CHLORIDE CRTAB 20 MEQ TABCR PO SCH (09:00)
--- NOTE | 2022-12-03 11:26 | Discharge Summary ---
Date of Service December 03, 2022 Admission HPI Per Admitting Provider History obtained from patient, family, and records. Medical history significant for CAD status post stenting, paroxysmal AFib status post ablation status post left atrial appendage occlusion/ Watchman device, hypertension, DM2 insulin requiring, past history dermatitis herpetiformis, history NHL status post chemotherapy, chronic anemia (baseline hemoglobin 10-11 ), ambulatory dysfunction, past tobacco abuse. Last confinement March 2022 for left femoral fracture status post surgery. Sarmiento catheter placed during admission for urinary retention. Patient discharged to rehab with Sarmiento catheter. Patient moved in with son at [place] residence after rehab discharge last April 2022. Sarmiento catheter maintained for convenience as patient's son cannot attend to patient at all times at home as per patient account. Patient seen at [facility] ER last month for urinary retention and UTI. Patient discharged on antibiotic Rx. Family had made arrangements for patient to be accepted yesterday at [facility] in [place]. Increasingly difficult for patient's son to care for patient in [place]. Patient with painful urinary retention complaints when daughter picked him up in [place] to travel to [place] yesterday morning. Bloody Sarmiento cath drainage as per daughter. Patient evaluated at [facility] ER in [place]. Given IV ciprofloxacin for UTI. Patient daughter requested for patient to be discharged from the ER as she was going to bring patient to [facility] for further evaluation. Patient complaining of constipation for 2 days. No fever, no chills, no chest pain, no SOB. MEDICAL HISTORY: As above. SURGERIES:Watchman device/left atrial appendage closure, pericardiocentesis, cholecystectomy, vasectomy. hernia repair, tonsillectomy/adenoidectomy, shoulder surgery. FAMILY HISTORY: Heart disease, breast cancer, DM PERSONAL AND SOCIAL HISTORY: Past smoker, no chronic intake of alcoholic beverages. 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 Admission Exam Per Admitting Provider GENERAL: Slightly uncomfortable, slightly anxious, no respiratory distress SKIN: Pallor, warm HEENT: Partial alopecia, bespectacled, pale palpebral conjunctivae, no ptosis, dry buccal mucosa NECK : Supple, no tenderness CHEST : CTA, no tenderness HEART : Tachycardic, no obvious murmurs ABDOMEN: Some distention, nontender EXTREMITIES : No LE swelling, minimal left hip tenderness, no other conspicuous deformities noted NEUROLOGIC : Coherent, no facial asymmetry, gait and stance not assessed Principal Diagnosis Severe sepsis POA Catheter associated UTI Chronic indwelling Sarmiento catheter for urinary retention, now removed, on Flomax Constipation Discharge Exam GENERAL: Alert and awake. NAD, on RA. HEENT: No pallor, no icterus. Pupils equal, round and reactive to light. Oral mucosa moist. NECK: No JVD, no neck masses. HEART: S1 and S2 heard. Regular rate and rhythm. No murmur, no gallop. RESPIRATORY SYSTEM: Normal AP diameter. No accessory muscle use. No wheezing, no crackles. ABDOMEN: Soft, bowel sounds present, nontender, no distention. CENTRAL NERVOUS SYSTEM: No facial droop. Speech is clear. Obeys simple commands. Moves extremities. EXTREMITIES: No edema, no erythema seen. Discharge Data Allergies Allergy/AdvReac Type Severity Reaction Status Date / Time hydroxyzine Allergy Severe Anaphylaxis Verified 11/30/22 22:54 Gold Salts Allergy Intermediate hives Verified 11/30/22 22:54 losartan Allergy Intermediate hypotension Verified 11/30/22 22:54 Penicillins Allergy Intermediate RASH Verified 11/30/22 22:54 triamcinolone Allergy Intermediate "pustules/r Verified 11/30/22 22:54 edness" wheat Allergy Intermediate Rash Verified 11/30/22 22:54 Consultations 11/30/22 23:55 ED Decision to Admit Stat Ordered Studies 12/01/22 00:54 CT Abd and Pelvis [CT abd pelvis wo con] Stat Hospital Course (1) Acute UTI (urinary tract infection): (2) Severe sepsis: Plan 77-year-old male with PMH of CAD status post stenting, paroxysmal A-fib status post ablation/left atrial appendage occlusion = Watchman device, HTN, DM 2 insulin requiring, dermatitis herpetiformis, NHL status post chemotherapy, chronic anemia [baseline hemoglobin of 10-11], ambulatory dysfunction and past tobacco abuse presented to the ED 11/30 with complaint of lower belly pain. Patient was admitted last March 2022 for left femoral fracture when he received surgery and also Sarmiento catheter was placed during admission for urinary retention, later on it was maintained for convenience as patient's son cannot at tend the patient at all times at home. Pt was living w/ his son at [place]. Per patient's daughter, with his current lower belly pain he was found to have blockage of Sarmiento catheter (in a hospital enroute to [place] from [place]) which was exchanged. Patient was also seen at [facility] ER last month for urinary retention and UTI and was discharged on antibiotic treatment. He was managed for the following: Severe sepsis POA: Lactate/WBC/heart rate elevated at presentation Catheter associated UTI Chronic indwelling Sarmiento catheter for urinary retention Patient had symptom of lower belly pain and Sarmiento catheter blockage prior to arrival. Patient received Sarmiento catheter exchange and a dose of IV ciprofloxacin at different hospital. Admitting CTAP: Nonspecific moderate bladder wall thickening with adjacent stranding Lactic acid normalized. WBC trended down, patient reamined afebrile, reports no more lower belly pain 11/30 blood and urine culture: U Cx w/ P mirabilis and staph spp, follow final results. Bl Cx no growth 48 hours. Continue with cefepime 12/01 to cefdinir on DC to complete the course. Voiding trial, Flomax added, if still with urinary retention, consult urology.---> Patient able to urinate/no problems per patient. 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 Other chronic medical conditions: CAD status post stenting, paroxysmal A-fib status post ablation/left atrial appendage occlusion = Watchman device: Continue with Tikosyn HTN, HLD: Continue with home meds DM2 insulin requiring: A1c 6.6, sliding scale insulin. NHL status postchemotherapy, in remission Chronic anemia, around baseline Functional disability/ambulatory dysfunction: Family had made arrangements for patient to be accepted 11/30 at [facility] in [place]. Past tobacco abuse Chronic hyponatremia: monitor. Disposition: PT/OT, CM to assist with DC planning, likely to [facility] once medically stable. DVT prophylaxis: Lovenox subcu DNR/DNI Sharita Bridges [patient's daughter, ] Patient being discharged to [facility] with following instructions at the point of discharge: Follow-up with your primary care physician within a week time and likely you will need labs CBC/CMP/magnesium/phosphorus. Follow-up on the final results of urine culture and blood culture when you visit your PCP in a week time upon discharge. Follow-up with urology as prior. For your constipation, you can use [id number] laxatives and stool softener as needed for laxative effects. For your UTI, you will be discharged on antibiotic, complete the course. Take your medications as prescribed. Please make sure that you are able to get your medications today by calling your pharmacy before you leave the hospital so that your treatment continuity is not broken. Home Health Attestation I certify that this patient is under my care and that I, or a physicians certified medical assistant working with me, had a face to-face encounter that meets the home health [id number] encounter requirements with this patient. The encounter with the patient was in whole, or in part, for the following medical condition, which is the primary reason for home health care (list medical condition): I certify that, based on my findings, the following services are medically necessary home health services: My clinical findings support the need for the above services because: Further, I certify that my clinical findings support that this patient is homebound (i.e. absences from home require considerable and taxing effort and are for medical reasons or temple services or infrequently or of short duration when for other reasons) because: Certification for Home Health Services: Based on the above findings, I certify that this patient is confined to the home and needs intermittent care home care, physical therapy and/or speech therapy or continues to need occupational therapy. The patient is under my care, and I have initiated the establishment of the plan of care. This patient will be followed by a physician who will periodically review the plan of care. Total Time Total Time Spent Total Time Spent (In Minutes): 45 Discharge Plan Discharge Items Patient Disposition: Transfer Jail [facility] Reason For Visit: SEPSIS Discharge Diagnosis: Severe sepsis POA Catheter associated UTI Chronic indwelling Sarmiento catheter for urinary retention, now removed, on Flomax Constipation Activity: Resume your previous activity Non-emergency contact: Primary Care Provider Call non-emergency contact if: you have any medication questions, your symptoms worsen and your temperature is above 101 Follow-up/Referrals: Rosa Brooks MD [Primary Care Provider] - Diet: Carb Consistent or DM2 and Heart Healthy Addtl Attending Provider Instructions: Follow-up with your primary care physician within a week time and likely you will need labs CBC/CMP/magnesium/phosphorus. Follow-up on the final results of urine culture and blood culture when you visit your PCP in a week time upon discharge. Follow-up with urology as prior. For your constipation, you can use [id number] laxatives and stool softener as needed for laxative effects. For your UTI, you will be discharged on antibiotic, complete the course. Take your medications as prescribed. Please make sure that you are able to get your medications today by calling your pharmacy before you leave the hospital so that your treatment continuity is not broken. Pending Studies at Discharge: Yes (Admitting blood culture final results.) Stand-Alone Forms: My [facility] Skilled Items Patient informed of condition?: Yes DNR: Yes Discharge Level of Care: Skilled Communicable Disease: No Discharge Prognosis: Stable Lines: None Urinary Catheter: No Medications and DC Order Prescriptions: New tamsulosin 0.4 mg Capsule 0.4 mg PO QAM Qty: 30 0RF polyethylene glycol 3350 [Miralax] 17 gram Powder In Packet 17 g PO DAILY Qty: 30 0RF sennosides-docusate sodium [Senokot-S] 8.6-50 mg Tablet 1 tab PO QAM PRN (Reason: constipation) Qty: 30 0RF cefdinir 300 mg capsule 300 mg PO BID 6 Days Qty: 12 0RF Continued acetaminophen [Acetaminophen Extra Strength] 500 mg Tablet 1,000 mg PO Q8 PRN (Reason: Fever Or Pain) multivitamin Tablet 1 tab PO DAILY cholecalciferol (vitamin D3) 25 mcg (1,000 unit) Capsule 1,000 unit PO QAM 30 Days 2RF metoprolol succinate [Toprol XL] 50 mg tablet extended release 24 hr 50 mg PO BID 30 Days Qty: 60 0RF dofetilide 250 mcg capsule 250 mcg PO Q12 30 Days Qty: 60 0RF clopidogrel 75 mg tablet 75 mg PO QAM 30 Days Qty: 30 0RF aspirin 81 mg Tablet,Delayed Release (Dr/Ec) 81 mg PO HS 30 Days Qty: 30 0RF duloxetine 30 mg capsule,delayed release(DR/EC) 30 mg PO DAILY 30 Days Qty: 30 0RF valsartan 40 mg Tablet 40 mg PO BID insulin glargine [Lantus Solostar U-100 Insulin] 100 unit/mL (3 mL) insulin pen 18 unit SC BID furosemide [Lasix] 40 mg Tablet 40 mg PO QAM potassium chloride 10 mEq Capsule, Extended Release 20 meq PO DAILY Discharge Orders: Discharge Order (Routine); Ordered 12/03/22 Ordered By: Riana Clement/Other Patient Handouts: Managing Type 2 Diabetes, Special Foot Care for Diabetes Admission Data Admit Date/Time: 12/01/22 00:57 Attending Provider: Riana Laughlin Admit Provider: Fidel Duran Primary Care Provider: Rosa Brooks Other Providers: Fidel Duran ; [facility]
== END 2022-12-03 13:34 ==
LOC: ED 20:51 → INTOOBSV 12-01 00:57 → 2N 12-01 00:57